=== PATIENT | male | born 1945 ===

== ENCOUNTER 2017-02-14 06:31 | Day surgery (SDC) | payer MEDICARE ==
[2017-02-14 07:08] VITALS: BMI 24.8
[2017-02-14] MEDS ORDERED: Lactated Ringer's 1,000 ML IV ONE (08:25)
[2017-02-14] MEDS ORDERED: Midazolam 2 MG/2 ML VIAL ONE (08:27)
[2017-02-14] MEDS ORDERED: Propofol 10 mg/ml Inj (20 ML) ONE (08:28)
--- NOTE | 2017-02-14 08:38 | CP.SDSHP ---
Same Day Surgery H & P - History Proposed Procedure: Personal history of colon cancer Pre-Op Diagnosis: History of colon cancer - Previous Medical/Surgical History Cardiac: Hypertension Pulmonary: Asthma Previous Surgical History: Left colon resection; hernia repair - Allergies Allergies: Allergies No Known Allergies Allergy (Verified 02/14/17 07:07) - Current Medications Current Medications: See reconciliation sheet - Physical Exam General Appearance: WD WN male in NAD Vital Signs: Vital Signs 02/14/17 07:37 Temperature 97 F L Pulse Rate 53 L Respiratory 19 Rate Blood Pressure 132/71 O2 Sat by Pulse 99 Oximetry Mental Status: Alert & Oriented x3 Neuro: WNL Heart: WNL Lungs: WNL GI: WNL - {Optional Preform as Required} Abdomen: WNL - Impression Impression: Personal history of colon cancer Pt. Evaluated Today:Candidate for Anesthesia & Procedure: Yes - Date & Time Date: 02/14/17 Time: 08:38 Short Stay Discharge - Short Stay Discharge Admitting Diagnosis/Reason for Visit: PERSONAL HISTORY OF COLON POLYPS Disposition: HOME/ ROUTINE
[2017-02-14 09:14] VITALS: TEMP 96.8; O2SAT 100
[2017-02-14 09:56] VITALS: RESP 12
[2017-02-14 10:48] VITALS: BP 131/81; PULSE 58
== END 2017-02-14 10:20 | disposition home or self-care (01) ==
LOC: C.ENDO 06:31
PROVIDERS: ATTEND Internal Medicine Gastroenterology
DX: Z08 Encounter for follow-up examination after completed treatment for malignant neoplasm (principal); Z85.038 Personal history of other malignant neoplasm of large intestine; Z90.49 Acquired absence of other specified parts of digestive tract; K57.30 Diverticulosis of large intestine without perforation or abscess without bleeding; D12.3 Benign neoplasm of transverse colon
CPT/HCPCS: 45385; 88305; J2250; J2704; J7120

== ENCOUNTER 2018-06-07 11:12 | Inpatient (IN) | payer MEDICARE ==
[2018-06-07 11:14] VITALS: BMI 24.8
[2018-06-07 12:12] LABS: BASO # 0.1 K/uL (0.0-0.2); BASO % 0.6 % (0.0-2.0); EOS # 0.1 K/uL (0.0-0.7); EOS % 0.5 % (0.0-4.0); HEMOGLOBIN 10.7 g/dL (12.0-18.0); LYMPH # 4.1 K/uL (1.0-4.3); LYMPH % 30.1 % (20.0-40.0); MEAN CELL VOLUME 83.5 fL (80.0-94.0); MEAN CORPUSCULAR HEMOGLOBIN 27.3 pg (27.0-31.0); MEAN CORPUSCULAR HGB CONC 32.6 g/dL (33.0-37.0); MEAN PLATELET VOLUME 8.5 fL (7.2-11.7); MONO # 1.2 K/uL (0.0-0.8); MONO % 8.6 % (0.0-10.0); NEUT # 8.2 K/uL (1.8-7.0); NEUT % 60.2 % (50.0-75.0); NRBC % 0.1 % (0.0-2.0); RBC 3.94 Mil/uL (4.40-5.90); WHITE BLOOD COUNT 13.6 K/uL (4.8-10.8)
--- NOTE | 2018-06-07 12:27 | C.PDOC ---
History Of Present Illness 73-year-old male, whose past medical history includes Leukemia and is s/p chemotherapy ten years ago, presents to the ED for evaluation of edema and redness to his bilateral lower extremities which began around two weeks ago. Patient reports pain to his bilateral legs, secondary to the edema. Patient also reports dry skin to the area, which he states has been chronic for many years and attributed to his history of cancer. Patient denies fever, chills, chest pain and shortness of breath at this time. PMD: Gerard Stewart Time Seen by Provider: 06/07/18 11:28 Chief Complaint (Nursing): Lower Extremity Problem/Injury History Per: Patient History/Exam Limitations: no limitations Onset/Duration Of Symptoms: Other (two weeks ) Current Symptoms Are (Timing): Still Present Additional History Per: Patient - Knee Description Of Injury: denies: Fell, Struck With Object, Struck Against Object Past Medical History Reviewed: Historical Data, Nursing Documentation, Vital Signs Vital Signs: Last Vital Signs Temp 97.3 F L 06/07/18 11:19 Pulse 76 06/07/18 11:19 Resp 18 06/07/18 11:19 BP 128/64 06/07/18 11:19 Pulse Ox 98 06/07/18 11:19 - Medical History PMH: Colonic Polyps (LARGE POLYPS WITH SURGEY TO REMOVE), HTN, Hypercholesterolemia Denies: Fractures, TIA Surgical History: Endoscopy Family History: States: Unknown Family Hx - Social History Hx Alcohol Use: No Hx Substance Use: No - Immunization History Hx Tetanus Toxoid Vaccination: Yes Hx Influenza Vaccination: Yes Hx Pneumococcal Vaccination: Yes Review Of Systems Constitutional: Negative for: Fever, Chills Cardiovascular: Negative for: Chest Pain Respiratory: Negative for: Shortness of Breath Musculoskeletal: Positive for: Leg Pain (bilateral lower extremities, secondary to edema) Skin: Positive for: Other (dryness and redness to skin ) Physical Exam - Physical Exam Additional Physical Exam Comments: Constitutional: No acute distress. Head: Normocephalic. Atraumatic. Eyes: PERRL. ENT: Moist mucous membranes. Neck: Supple. Cardiovascular: Regular rate. Normal DP pulse. Chest: No tenderness. Respiratory: Clear to auscultation bilaterally. GI: Soft. Nontender. Nondistended. Back: No CVA tenderness. Musculoskeletal: Pitting edema to bilateral lower extremities. normal ROM. Capillary refill is less than two seconds. Skin: erythematous and dry, cracked skin to lower extremities Neurologic: Alert, no focal deficit ED Course And Treatment - Laboratory Results Result Diagrams: 06/07/18 12:08 06/07/18 12:08 O2 Sat by Pulse Oximetry: 98 Medical Decision Making Medical Decision Making: Impression: 73 year old male with pitting edema and pain to bilateral lower extremities Plan: * bloodwork * venous duplex scan of bilateral lower extremities * reassess and disposition Progress: Bloodwork and venous duplex scan ordered and reviewed. Duplex negative for DVT bilaterally. Dr. Post recommends admission to hospitalist service. Recommends oncology consultation. Dr. Marvin accepts patient to hospitalist service. Disposition - Disposition Disposition: HOSPITALIZED Disposition Time: 14:14 Condition: GUARDED Forms: [facility] (Yakut) - Clinical Impression Clinical Impression: Cellulitis - Scribe Statement The provider has reviewed the documentation as recorded by the Scribe (Ladi Llanes) Provider Attestation: All medical record entries made by the Scribe were at my direction and personally dictated by me. I have reviewed the chart and agree that the record accurately reflects my personal performance of the history, physical exam, medical decision making, and the department course for this patient. I have also personally directed, reviewed, and agree with the discharge instructions and disposition.
[2018-06-07 12:46] LABS: ALBUMIN 3.3 g/dL (3.5-5.0); ALT/SGPT 18 U/L (21-72); AST/SGOT 34 U/L (17-59); BLOOD UREA NITROGEN 18 mg/dL (9-20); CALCIUM 9.1 mg/dl (8.6-10.4); GFR NON-AFRICAN AMERICAN > 60
[2018-06-07] MEDS ORDERED: Vancomycin 1 gm/NS 200 ml 1 GM/200 ML BAG IVPB STA (14:23)
--- NOTE | 2018-06-07 15:00 | CP.PCM.HP ---
<Kevin Guadalupe - Last Filed: 06/07/18 15:58> History of Present Illness - History of Present Illness History of Present Illness: PGY-1 Medicine H&P for Dr. Marvin's service CC: leg swelling and pain HPI: Patient is a 76 yo male w/ PMH of HTN and leukemia who presents to emergency department for evaluation of bilateral leg swelling and pain. Patient states the leg swelling and pain has been ongoing for two weeks, crampy in nature, non-radiating, 6-7/10 on pain scale. Patient states that he went to see his primary medical doctor for this situation and he was prescribed gabapentin and prednisone. However, the pain persisted and leg swelling was still present which prompted patient to come to hospital. Patient has had a similar episode in the past about 4 months ago for which he received antibiotics and the problem was resolved. Patient states he gets short of breath with minimal exertion. Patient states it is painful when he ambulates. Patient had an appointment with his oncologist about 2 months prior but was not able to make the appointment and his oncologist is traveling for holiday vacation. Patient denies fevers, chills, chest pain, sob, n/v, constipation or diarrhea, and dysuria. Patient admits to leg swelling, dry skin, itchiness at times, and pain but not currently, WEBB. PMH- HTN, Leukemia (Prolymphocytic Leukemia) Meds- Gabapentin 300mg bid, prednisone 20mg po daily, Triameterene-HCTZ (37.5- 25), levocetirizine 5mg, MV once daily, Benadryl 50mg q6 prn PSH- 2 colon surgeries FH-Denies Allergies-NKDA Social- Denies alcohol, tobacco, and drug use PMD- Dr. Post Code- Full code Present on Admission - Present on Admission Any Indicators Present on Admission: No Review of Systems - Review of Systems Review of Systems: 12 point ROS obtained and noted in HPI Past Patient History - Past Medical History & Family History Past Medical History?: Yes - Past Social History Smoking Status: Never Smoked - CARDIAC Hx Hypercholesterolemia: Yes Hx Hypertension: Yes - NEUROLOGICAL Hx Transient Ischemic Attacks (TIA): No - HEMATOLOGICAL/ONCOLOGICAL Hx Blood Disorders: Yes Hx Leukemia: Yes (IN REMISSION) - INTEGUMENTARY Hx Dermatological Problems: Yes Hx Eczema: Yes (ALL OVER BODY) - MUSCULOSKELETAL/RHEUMATOLOGICAL Hx Fractures: No - GASTROINTESTINAL Hx Gastrointestinal Disorders: Yes Hx Bowel Surgery: Yes (2X RESECTION OF 2 LARGE, BENIGN POLYPS) - PSYCHIATRIC Hx Substance Use: No - SURGICAL HISTORY Hx Surgeries: Yes Hx Herniorrhaphy: Yes (RIGHT GROIN) - ANESTHESIA Hx Anesthesia: Yes Hx Anesthesia Reactions: No Hx Malignant Hyperthermia: No Meds Allergies/Adverse Reactions: Allergies Allergy/AdvReac Type Severity Reaction Status Date / Time No Known Allergies Allergy Verified 02/14/17 07:07 Physical Exam - Constitutional Appears: Non-toxic, No Acute Distress - Head Exam Head Exam: NORMAL INSPECTION, NORMOCEPHALIC - Eye Exam Eye Exam: EOMI, Normal appearance. absent: Nystagmus, Scleral icterus - ENT Exam ENT Exam: Mucous Membranes Dry - Respiratory Exam Respiratory Exam: Clear to Auscultation Bilateral, NORMAL BREATHING PATTERN. absent: Rales, Rhonchi, Wheezes - Cardiovascular Exam Cardiovascular Exam: REGULAR RHYTHM, +S1, +S2. absent: Tachycardia - GI/Abdominal Exam GI & Abdominal Exam: Normal Bowel Sounds, Soft. absent: Distended, Firm, Guarding, Hernia, Tenderness Additional comments: well healed incision midline in lower abdomen - Extremities Exam Extremities exam: Positive for: normal inspection, pedal edema, pedal pulses present. Negative for: calf tenderness, tenderness - Back Exam Back exam: NORMAL INSPECTION. absent: CVA tenderness (L), CVA tenderness (R) - Neurological Exam Neurological exam: Alert, Oriented x3 - Psychiatric Exam Psychiatric exam: Normal Affect, Normal Mood - Skin Skin Exam: Dry Additional comments: cracked dry skin all over body multiple blisters with visible blood below mouth and bilateral feet Results - Vital Signs Recent Vital Signs: Last Vital Signs Temp 97.3 F L 06/07/18 11:19 Pulse 76 06/07/18 11:19 Resp 18 06/07/18 11:19 BP 128/64 06/07/18 11:19 Pulse Ox 98 06/07/18 14:30 - Labs Result Diagrams: 06/07/18 12:08 06/07/18 12:08 Labs: Laboratory Results - last 24 hr 06/07/18 06/07/18 12:08 12:08 WBC 13.6 H RBC 3.94 L Hgb 10.7 L Hct 32.9 L MCV 83.5 MCH 27.3 MCHC 32.6 L RDW 15.0 H Plt Count 317 MPV 8.5 Neut % (Auto) 60.2 Lymph % (Auto) 30.1 [place] % (Auto) 8.6 Eos % (Auto) 0.5 Baso % (Auto) 0.6 Neut # (Auto) 8.2 H Lymph # (Auto) 4.1 [place] # (Auto) 1.2 H Eos # (Auto) 0.1 Baso # (Auto) 0.1 Sodium 135 Potassium 3.8 Chloride 97 L Carbon Dioxide 30 Anion Gap 12 BUN 18 Creatinine 0.8 Est GFR ( Amer) > 60 Est GFR (Non-Af Amer) > 60 Random Glucose 120 H Calcium 9.1 Total Bilirubin 0.5 AST 34 ALT 18 L Alkaline Phosphatase 68 Total Protein 6.6 Albumin 3.3 L Globulin 3.3 Albumin/Globulin Ratio 1.0 Assessment & Plan - Assessment and Plan (Free Text) Assessment: Patient is a 73 yo male with pmh of prolymphocytic leukemia and HTN admitted for bilateral lower leg edema and pain on ambulation. Plan: Bilateral Lower Leg Edema cellulitis vs CHF Heme Onc consulted: Dr. Hodge- recommendations appreciated Lower extremity U/S negative Xray of bilateral feet pending BNP pending Chest Xray pending Echo pending Vanc/Zosyn; elevated WBC; afebrile BCx pending Gabapentin 300mg po bid nilesh HTN Lasix 20mg IVP bid nilesh HZTZ/Triameterene 1 cap po daily Dry skin with itchign Benadryl 50mg po q6 prn Loratidine 10mg po daily Vaseline 5gm top q6 PPX DVT Heparin 5000 units sc q8h GI Protonix 40mg po hs PT eval pending <Marvin,Peter H - Last Filed: 06/07/18 17:43> Results - Vital Signs Recent Vital Signs: Last Vital Signs Temp 97.3 F L 06/07/18 11:19 Pulse 77 06/07/18 15:15 Resp 18 06/07/18 15:15 BP 115/79 06/07/18 15:15 Pulse Ox 98 06/07/18 15:15 - Labs Result Diagrams: 06/07/18 12:08 06/07/18 12:08 Labs: Laboratory Results - last 24 hr 12/12/18 12/12/18 12/12/18 12:08 12:08 12:08 WBC 13.6 H RBC 3.94 L Hgb 10.7 L Hct 32.9 L MCV 83.5 MCH 27.3 MCHC 32.6 L RDW 15.0 H Plt Count 317 MPV 8.5 Neut % (Auto) 60.2 Lymph % (Auto) 30.1 [place] % (Auto) 8.6 Eos % (Auto) 0.5 Baso % (Auto) 0.6 Neut # (Auto) 8.2 H Lymph # (Auto) 4.1 [place] # (Auto) 1.2 H Eos # (Auto) 0.1 Baso # (Auto) 0.1 Sodium 135 Potassium 3.8 Chloride 97 L Carbon Dioxide 30 Anion Gap 12 BUN 18 Creatinine 0.8 Est GFR ( Amer) > 60 Est GFR (Non-Af Amer) > 60 Random Glucose 120 H Calcium 9.1 Total Bilirubin 0.5 AST 34 ALT 18 L Alkaline Phosphatase 68 NT-Pro-B Natriuret Pep 538 Total Protein 6.6 Albumin 3.3 L Globulin 3.3 Albumin/Globulin Ratio 1.0 Attending/Attestation - Attestation I have personally seen and examined this patient.: Yes I have fully participated in the care of the patient.: Yes I have reviewed all pertinent clinical information: Yes Notes (Text): 06/07/18 17:39 Medical attending: Patient was seen and examined by me. Agree with the above note by the resident The patient was not in any acute distress when I came and saw the patient. Patient was sent to the Er by his PMD because of the lower extremity edema bilaterally. The patient reports it is painful to walk. Denied fevers. ER has ordered dopplers and it is negative for DVT. There is concern for cellultis so abx IV have been ordered. Also we need imaging of bilateral feet The patient should have a CXRAY and Echo to assess for potential CHF Also will give lasix as well however not large dose since he does look dry in the face and mouth Per the family they had to have the patient move into their own house since he was not eating and could not take care of himself. It is possible the swelling is due to low protein from malnutrition and low albumin. We may give him IV albumin to see if this helps with the lasix for diureses. If patient does not repsond well to the lasix then will consider CT of the abdomen and pelvis in case there is some tumor or mass in abdomen causing lymphatic contriction (he has history of leukemia they say 10 years ago) Cortez Marvin
[2018-06-07] MEDS ORDERED: Vancomycin 1 gm/NS 200 ml 1 GM/200 ML BAG IVPB ONE (15:15)
--- NOTE | 2018-06-07 16:56 | RAD ---
HISTORY: chf COMPARISON: None available. TECHNIQUE: Chest, one view. FINDINGS: LUNGS: Mild biapical pleural thickening. Linear atelectasis, left lung base. Mild pulmonary venous congestion. Please note that chest x-ray has limited sensitivity for the detection of pulmonary masses. PLEURA: No significant pleural effusion identified. No definite pneumothorax . CARDIOVASCULAR: Heart size appears within normal limits. Ectatic aorta. Atherosclerotic calcifications. OSSEOUS STRUCTURES: Degenerative changes of the spine and shoulders. VISUALIZED UPPER ABDOMEN: Unremarkable. OTHER FINDINGS: None. IMPRESSION: Mild biapical pleural thickening. Linear atelectasis, left lung base. Mild pulmonary venous congestion.
[2018-06-07] MEDS: Piperacill/Tazo 3.375gm in Dex 3.375 GM/50 ML BAG IVPB SCH ×2 (18:08→23:02)
[2018-06-07] MEDS: Pantoprazole 40 mg EC Tab PO SCH (18:08)
[2018-06-07] MEDS: Petrolatum Oint Foilpak (5 gm) TOP SCH (18:09)
[2018-06-07 21:36] VITALS: RESP 20
[2018-06-08] MEDS: Piperacill/Tazo 3.375gm in Dex 3.375 GM/50 ML BAG IVPB SCH ×4 (04:00→21:19)
[2018-06-08] MEDS: Petrolatum Oint Foilpak (5 gm) TOP SCH ×4 (05:15→17:30)
[2018-06-08 07:48] LABS: BASO # 0.1 K/uL (0.0-0.2); EOS # 0.3 K/uL (0.0-0.7); HEMOGLOBIN 9.9 g/dL (12.0-18.0); LYMPH # 8.9 K/uL (1.0-4.3); LYMPH % 63.6 % (20.0-40.0); MEAN CELL VOLUME 83.5 fL (80.0-94.0); MEAN CORPUSCULAR HEMOGLOBIN 27.2 pg (27.0-31.0); MEAN CORPUSCULAR HGB CONC 32.5 g/dL (33.0-37.0); MEAN PLATELET VOLUME 9.1 fL (7.2-11.7); MONO # 0.2 K/uL (0.0-0.8); MONO % 1.3 % (0.0-10.0); NEUT # 4.5 K/uL (1.8-7.0); NEUT % 32.1 % (50.0-75.0); RBC 3.64 Mil/uL (4.40-5.90)
[2018-06-08 07:58] LABS: ALB/GLOB RATIO 0.9 (1.0-2.1); ALBUMIN 2.9 g/dL (3.5-5.0); ALT/SGPT 21 U/L (21-72); AST/SGOT 20 U/L (17-59); BLOOD UREA NITROGEN 18 mg/dL (9-20); CALCIUM 8.7 mg/dl (8.6-10.4); GFR NON-AFRICAN AMERICAN > 60
[2018-06-08] MEDS: hydroCHLOROthiazide-Triamterene 25 mg-37.5 mg Cap UD PO SCH ×2 (08:00→11:00)
--- NOTE | 2018-06-08 09:22 | CP.PCM.PN ---
<Sari Lee - Last Filed: 06/08/18 17:20> Subjective - Date & Time of Evaluation Date of Evaluation: 06/08/18 Time of Evaluation: 09:21 - Subjective Subjective: PGY-1 Sari Lee D.O. Medicine progress note for Dr. Marvin's service: Patient was seen and examined this morning. He states that he continues to have pain on the soles of his feet, but the rest of his legs are feeling better and he feels the swelling has decreased. He states he has not yet walked around since being in the hospital. he still has diffuse dry skin, which he says is chronic but worsening, especially on his feet and legs. Daughter was at bedside. Objective - Vital Signs/Intake and Output Vital Signs (last 24 hours): Temp Pulse Resp BP Pulse Ox 97.5 F L 74 20 146/70 96 06/08/18 07:39 06/08/18 07:39 06/08/18 07:39 06/08/18 07:39 06/08/18 07:39 Intake and Output: 06/08/18 06/08/18 06:59 18:59 Intake Total 1400 Output Total 2600 Balance -1200 - Medications Medications: Current Medications Diphenhydramine HCl (Benadryl) 50 mg PO Q6 PRN PRN Reason: Itching / Pruritus Emollient Ointment (Vaseline Oint) 5 gm TOP Q6 [facility] Last Admin: 06/08/18 05:15 Dose: 5 gm Furosemide (Lasix) 20 mg IVP BID [facility] Last Admin: 06/07/18 18:07 Dose: 20 mg Gabapentin (Neurontin) 300 mg PO BID [facility] Last Admin: 06/07/18 18:07 Dose: 300 mg Heparin Sodium (Porcine) (Heparin) 5,000 units SC Q8 [facility] Last Admin: 06/08/18 05:25 Dose: 5,000 units Piperacillin Sod/Tazobactam Sod (Zosyn 3.375 Gm Iv Premix) 3.375 gm in 50 mls @ 100 mls/hr IVPB Q6H [facility]; Protocol Last Admin: 06/08/18 04:00 Dose: 100 mls/hr Vancomycin HCl 1,000 mg/ (Sodium Chloride) 250 mls @ 166.6 mls/hr IVPB Q12H [facility]; Protocol Last Admin: 06/08/18 05:00 Dose: 166.6 mls/hr Loratadine (Claritin) 10 mg PO DAILY [facility] Last Admin: 06/07/18 18:07 Dose: 10 mg Pantoprazole Sodium (Protonix Ec Tab) 40 mg PO DAILY [facility] Last Admin: 06/07/18 18:08 Dose: 40 mg Triamterene/HCTZ (Dyazide 25 Mg-37.5 Mg) 1 cap PO DAILY [facility] - Labs Labs: 06/08/18 07:34 06/08/18 07:34 - Constitutional Appears: No Acute Distress - Head Exam Head Exam: ATRAUMATIC, NORMAL INSPECTION - Eye Exam Eye Exam: EOMI, Normal appearance, PERRL - ENT Exam ENT Exam: Mucous Membranes Moist - Neck Exam Neck Exam: Normal Inspection - Respiratory Exam Respiratory Exam: Clear to Ausculation Bilateral, NORMAL BREATHING PATTERN - Cardiovascular Exam Cardiovascular Exam: REGULAR RHYTHM, +S1, +S2 - GI/Abdominal Exam GI & Abdominal Exam: Soft. absent: Tenderness - Rectal Exam Rectal Exam: Deferred - Extremities Exam Extremities Exam: Normal Inspection (diffuse dry, peeling, cracked skin), Pedal Edema (2+ pitting edema up to ankles b/l), Tenderness (plantar surfaces of feet b/l). absent: Calf Tenderness, Normal Capillary Refill - Neurological Exam Neurological Exam: Alert, Awake, CN II-XII Intact, Oriented x3 - Psychiatric Exam Psychiatric exam: Normal Affect, Normal Mood - Skin Skin Exam: Dry, Warm Additional comments: diffuse dry, flaky skin over entire body, worse on feet with cracking of plantar surfaces Assessment and Plan - Assessment and Plan (Free Text) Assessment: Patient is a 73 yo male with a history of leukemia (in remission) who presented with increased swelling and pain of his legs. Patient was living by himself and only eating one meal a day. His family recently had him move in with them. Patient has diffuse dry, flaking, cracking skin and swelling of his lower extremities. Treating patient empirically for cellulitis. Also assessing for HF, but patient has no history. Plan: Bilateral lower extremity edema and pain, acute- r/o CHF, cellulitis. hypoalbuminemia - BNP 538 - Leukocytosis (14)- stable - Afebrile - Echo pending - B/l LE Doppler: no DVT - B/l foot XR: No fracture or lytic lesion. Multifocal arthrosis dorsal midfoot, minimal each 1st metatarsal-phalangeal joint and primarily right great toe interphalangeal joint. Atherosclerotic vascular calcifications present. - Blood Cx no growth >24 hrs - Gabapentin 300 mg PO BID - Lasix 40 mg IV BID - Zosyn 3.375 g IV Q6H- started 06/07 - Vancomycin 1 g IV Q12H- started 06/07 Dry skin, worsening- diffuse, most prominent on feet - Petroleum Q6H - Ammonium lactate - Clotrimazole 1% BID - Lac-Hydrin 12% BID - Benadryl 50 mg PO Q6H PRN - Podiatry consulted (Steph) Hypoalbuminemia, worsening - Alb 3.3->2.9 - Total prot 6.6->5.9 - Await echo results before giving albumin - Ensure supplements BID Hypertension - Monitor vitals Q4H - Triamterene/HCTZ 25-37.5 mg PO daily H/o prolymphocytic leukemia - Hem/onc consulted (Naveen) Allergic rhinitis - Claritin 10 mg PO daily Ppx: VTE: heparin 5000 units SC Q8H GI: PTX 40 mg PO daily Code status: full code Case was discussed with attending, Dr. Marvin. <Cortez Marvin - Last Filed: 06/08/18 17:59> Objective - Vital Signs/Intake and Output Vital Signs (last 24 hours): Temp Pulse Resp BP Pulse Ox 97.8 F 88 20 132/64 96 06/08/18 15:30 06/08/18 15:30 06/08/18 15:30 06/08/18 17:28 06/08/18 15:30 Intake and Output: 06/08/18 06/08/18 06:59 18:59 Intake Total 1400 390 Output Total 2600 900 Balance -1200 -510 - Medications Medications: Current Medications Clotrimazole (Lotrimin 1%) 0 gm TOP BID [facility] Diphenhydramine HCl (Benadryl) 50 mg PO Q6 PRN PRN Reason: Itching / Pruritus Emollient Ointment (Vaseline Oint) 5 gm TOP Q6 [facility] Last Admin: 06/08/18 17:30 Dose: 5 gm Furosemide (Lasix) 40 mg IVP BID [facility] Last Admin: 06/08/18 17:28 Dose: 40 mg Gabapentin (Neurontin) 300 mg PO BID [facility] Last Admin: 06/08/18 17:29 Dose: 300 mg Heparin Sodium (Porcine) (Heparin) 5,000 units SC Q8 [facility] Last Admin: 06/08/18 14:01 Dose: 5,000 units Piperacillin Sod/Tazobactam Sod (Zosyn 3.375 Gm Iv Premix) 3.375 gm in 50 mls @ 100 mls/hr IVPB Q6H [facility]; Protocol Last Admin: 06/08/18 16:56 Dose: 100 mls/hr Vancomycin HCl 1,000 mg/ (Sodium Chloride) 250 mls @ 166.6 mls/hr IVPB Q12H [facility]; Protocol Last Admin: 06/08/18 17:29 Dose: 166.6 mls/hr Lactic Acid (Lac-Hydrin 12% Lotion (225 G)) 0 gm EXT BID [facility] Loratadine (Claritin) 10 mg PO DAILY [facility] Last Admin: 06/08/18 11:07 Dose: 10 mg Pantoprazole Sodium (Protonix Ec Tab) 40 mg PO DAILY [facility] Last Admin: 06/08/18 11:00 Dose: 40 mg Triamterene/HCTZ (Dyazide 25 Mg-37.5 Mg) 1 cap PO DAILY [facility] Last Admin: 06/08/18 11:00 Dose: 1 cap - Labs Labs: 06/08/18 07:34 06/08/18 07:34 Attending/Attestation - Attestation I have personally seen and examined this patient.: Yes I have fully participated in the care of the patient.: Yes I have reviewed all pertinent clinical information, including history, physical exam and plan: Yes Notes (Text): 06/08/18 17:57 Medical attending: Patient was seen and examined by me as well. Agree with the above note by the resident. The patient reported that he thought he felt better with less edema in the legs. We did not give a large amount of lasix. The skin is less tender now he says In the mean time we are continuing with the IV abx Also he underwent echo as well - and pending results. We will consider giving albumin to help with oncotic pressure as we are diureesing the patient. Cortez Marvin
[2018-06-08] MEDS: Pantoprazole 40 mg EC Tab PO SCH (11:00)
--- NOTE | 2018-06-08 11:24 | RAD ---
Date of service: 06/07/2018 PROCEDURE: Bilateral Feet Radiographs. HISTORY: bilateral lower extremity edema COMPARISON: None. FINDINGS: BONES: Right Foot: No fracture appreciated Dorsal midfoot cortical hyperostoses inferior and posterior calcaneal spurring Left Foot: No fracture. Dorsal midfoot cortical hyperostoses inferior and posterior calcaneal spurring JOINTS: Right Foot: Arthrosis Left Foot: Arthrosis left hammertoe like orientations. SOFT TISSUES: Right Foot: Atherosclerotic vascular calcifications present. Left Foot: Atherosclerotic vascular calcifications present. OTHER FINDINGS: Each navicular bone appears developmental variant type cornuate shaped IMPRESSION: No fracture or lytic lesion. Multifocal arthrosis dorsal midfoot, minimal each 1st metatarsal-phalangeal joint and primarily right great toe interphalangeal joint. Atherosclerotic vascular calcifications present.
--- NOTE | 2018-06-08 11:32 | CP.PCM.CON ---
History of Present Illness - History of Present Illness History of Present Illness: Podiatry - Dr. Choi 73 year old male patient PMHx HTN, leukemia, eczema seen and evaluated at bedside for bilateral foot pain. Patient admitted for bilateral lower extremity edema + pain with ambulation. Patient states he has had severe scaling on his feet for a few weeks now and as a result has developed painful fissures in between his feet. Patient reports itching along with burning/stinging pain with ambulation; denies seeing any bleeding or drainage from wounds. Admits to using OTC lotion which provides no relief. Denies n/v/d, no f/c, no sob. PMH: HTN, leukemia, eczema PSH: colon resection, hernia repair FH: denies SH: denies ETOH/tobacco/illicit drug use All: NKDA Review of Systems - Review of Systems All systems: reviewed and no additional remarkable complaints except (as per HPI) Past Patient History - Past Medical History & Family History Past Medical History?: Yes - Past Social History Smoking Status: Never Smoked - CARDIAC Hx Hypercholesterolemia: Yes Hx Hypertension: Yes - NEUROLOGICAL Hx Transient Ischemic Attacks (TIA): No - HEENT Hx Cataracts: Yes (rehan) - HEMATOLOGICAL/ONCOLOGICAL Hx Blood Disorders: Yes Hx Leukemia: Yes (IN REMISSION) - INTEGUMENTARY Hx Dermatological Problems: Yes Hx Eczema: Yes (ALL OVER BODY) - MUSCULOSKELETAL/RHEUMATOLOGICAL Hx Falls: No Hx Fractures: No - GASTROINTESTINAL Hx Gastrointestinal Disorders: Yes Hx Bowel Surgery: Yes (2X RESECTION OF 2 LARGE, BENIGN POLYPS) - PSYCHIATRIC Hx Substance Use: No - SURGICAL HISTORY Hx Surgeries: Yes Hx Herniorrhaphy: Yes (RIGHT GROIN) - ANESTHESIA Hx Anesthesia: Yes Hx Anesthesia Reactions: No Hx Malignant Hyperthermia: No Meds Allergies/Adverse Reactions: Allergies Allergy/AdvReac Type Severity Reaction Status Date / Time No Known Allergies Allergy Verified 02/14/17 07:07 - Medications Medications: Current Medications Diphenhydramine HCl (Benadryl) 50 mg PO Q6 PRN PRN Reason: Itching / Pruritus Emollient Ointment (Vaseline Oint) 5 gm TOP Q6 [facility] Last Admin: 06/08/18 05:15 Dose: 5 gm Furosemide (Lasix) 40 mg IVP BID [facility] Gabapentin (Neurontin) 300 mg PO BID [facility] Last Admin: 06/08/18 11:00 Dose: 300 mg Heparin Sodium (Porcine) (Heparin) 5,000 units SC Q8 [facility] Last Admin: 06/08/18 05:25 Dose: 5,000 units Piperacillin Sod/Tazobactam Sod (Zosyn 3.375 Gm Iv Premix) 3.375 gm in 50 mls @ 100 mls/hr IVPB Q6H [facility]; Protocol Last Admin: 06/08/18 11:00 Dose: 100 mls/hr Vancomycin HCl 1,000 mg/ (Sodium Chloride) 250 mls @ 166.6 mls/hr IVPB Q12H [facility]; Protocol Last Admin: 06/08/18 05:00 Dose: 166.6 mls/hr Loratadine (Claritin) 10 mg PO DAILY [facility] Last Admin: 06/08/18 11:07 Dose: 10 mg Pantoprazole Sodium (Protonix Ec Tab) 40 mg PO DAILY [facility] Last Admin: 06/08/18 11:00 Dose: 40 mg Triamterene/HCTZ (Dyazide 25 Mg-37.5 Mg) 1 cap PO DAILY [facility] Last Admin: 06/08/18 11:00 Dose: 1 cap Physical Exam - Constitutional Appears: Well, Non-toxic, No Acute Distress - Extremities Exam Additional comments: VASC: DP/PT pulses palpable 2/4 b/l. CFT <3 seconds. TG warm to warm. Nonpitting edema b/l. NEURO: Gross sensation intact b/l. DERM: Severe xerosis + scaling present with fissuring throughout plantar aspect of foot b/l - no drainage, purulence. Erythema noted to bilateral LE. ORTHO: Pain on palpation to fissures. ROM limited 2/2 edema. - Neurological Exam Neurological exam: Alert, Oriented x3 - Psychiatric Exam Psychiatric exam: Normal Affect, Normal Mood Results - Vital Signs Recent Vital Signs: Last Vital Signs Temp 97.5 F L 06/08/18 07:39 Pulse 74 06/08/18 07:39 Resp 20 06/08/18 07:39 BP 146/70 06/08/18 11:00 Pulse Ox 96 06/08/18 07:39 - Labs Result Diagrams: 06/08/18 07:34 06/08/18 07:34 Labs: Laboratory Results - last 24 hr 06/07/18 06/07/18 06/07/18 12:08 12:08 12:08 WBC 13.6 H RBC 3.94 L Hgb 10.7 L Hct 32.9 L MCV 83.5 MCH 27.3 MCHC 32.6 L RDW 15.0 H Plt Count 317 MPV 8.5 Neut % (Auto) 60.2 Lymph % (Auto) 30.1 Hudspeth % (Auto) 8.6 Eos % (Auto) 0.5 Baso % (Auto) 0.6 Neut # (Auto) 8.2 H Lymph # (Auto) 4.1 Hudspeth # (Auto) 1.2 H Eos # (Auto) 0.1 Baso # (Auto) 0.1 Sodium 135 Potassium 3.8 Chloride 97 L Carbon Dioxide 30 Anion Gap 12 BUN 18 Creatinine 0.8 Est GFR ( Amer) > 60 Est GFR (Non-Af Amer) > 60 Random Glucose 120 H Calcium 9.1 Phosphorus Magnesium Total Bilirubin 0.5 AST 34 ALT 18 L Alkaline Phosphatase 68 NT-Pro-B Natriuret Pep 538 Total Protein 6.6 Albumin 3.3 L Globulin 3.3 Albumin/Globulin Ratio 1.0 06/08/18 06/08/18 07:34 07:34 WBC 14.0 H RBC 3.64 L Hgb 9.9 L Hct 30.4 L MCV 83.5 MCH 27.2 MCHC 32.5 L RDW 15.0 H Plt Count 332 MPV 9.1 Neut % (Auto) 32.1 L Lymph % (Auto) 63.6 H Hudspeth % (Auto) 1.3 Eos % (Auto) 2.0 Baso % (Auto) 1.0 Neut # (Auto) 4.5 Lymph # (Auto) 8.9 H Hudspeth # (Auto) 0.2 Eos # (Auto) 0.3 Baso # (Auto) 0.1 Sodium 139 Potassium 3.6 Chloride 101 Carbon Dioxide 31 H Anion Gap 11 BUN 18 Creatinine 0.8 Est GFR ( Amer) > 60 Est GFR (Non-Af Amer) > 60 Random Glucose 80 Calcium 8.7 Phosphorus 2.6 Magnesium 2.0 Total Bilirubin 0.6 AST 20 ALT 21 Alkaline Phosphatase 56 NT-Pro-B Natriuret Pep Total Protein 5.9 L Albumin 2.9 L Globulin 3.1 Albumin/Globulin Ratio 0.9 L Assessment & Plan - Assessment and Plan (Free Text) Assessment: 73M PMHx HTN, leukemia, eczema with painful fissures b/l feet Plan: Patient seen and evaluated Discussed with attending, Dr. Steph ALVAREZ, WBC 14.0 LE duplex pending, f/u Bilateral foot XR: (-)fracture, vascular calcifications Clotrimazole + Ammonium lactate TOP BID Podiatry will continue to follow
--- NOTE | 2018-06-08 12:55 | CP.PCM.CON ---
History of Present Illness - History of Present Illness History of Present Illness: 73 year old male with a history of HTN, APL s/p chemotherapy at [place] about 10 years ago, presenting with lower extremity pain and swelling. The patient notes to progressive fatigue and weightloss over the last month. He missed his appointment with his oncologist in March. He notes to blistering and skin peeling with increasing pain. He denies fevers and chills. Past medical history: HTN, APL Past surgical history: Colon surgery Family history: Denies hematologic and oncologic problems Social history: Denies tobacco, alcohol, and illicit drug use. Allergies: NKA Review of systems: All remaining review of systems including HEENT, cardiovascular, respiratory, gastrointestinal, genitourinary, musculoskeletal, dermatologic, neurologic, and psychiatric are negative unless mentioned in the HPI. Past Patient History - Past Medical History & Family History Past Medical History?: Yes - Past Social History Smoking Status: Never Smoked - CARDIAC Hx Hypercholesterolemia: Yes Hx Hypertension: Yes - NEUROLOGICAL Hx Transient Ischemic Attacks (TIA): No - HEENT Hx Cataracts: Yes (rehan) - HEMATOLOGICAL/ONCOLOGICAL Hx Blood Disorders: Yes Hx Leukemia: Yes (IN REMISSION) - INTEGUMENTARY Hx Dermatological Problems: Yes Hx Eczema: Yes (ALL OVER BODY) - MUSCULOSKELETAL/RHEUMATOLOGICAL Hx Falls: No Hx Fractures: No - GASTROINTESTINAL Hx Gastrointestinal Disorders: Yes Hx Bowel Surgery: Yes (2X RESECTION OF 2 LARGE, BENIGN POLYPS) - PSYCHIATRIC Hx Substance Use: No - SURGICAL HISTORY Hx Surgeries: Yes Hx Herniorrhaphy: Yes (RIGHT GROIN) - ANESTHESIA Hx Anesthesia: Yes Hx Anesthesia Reactions: No Hx Malignant Hyperthermia: No Meds Allergies/Adverse Reactions: Allergies Allergy/AdvReac Type Severity Reaction Status Date / Time No Known Allergies Allergy Verified 02/14/17 07:07 - Medications Medications: Current Medications Diphenhydramine HCl (Benadryl) 50 mg PO Q6 PRN PRN Reason: Itching / Pruritus Emollient Ointment (Vaseline Oint) 5 gm TOP Q6 [facility] Last Admin: 06/08/18 12:08 Dose: 5 gm Furosemide (Lasix) 40 mg IVP BID [facility] Last Admin: 06/08/18 12:09 Dose: 40 mg Gabapentin (Neurontin) 300 mg PO BID [facility] Last Admin: 06/08/18 11:00 Dose: 300 mg Heparin Sodium (Porcine) (Heparin) 5,000 units SC Q8 [facility] Last Admin: 06/08/18 05:25 Dose: 5,000 units Piperacillin Sod/Tazobactam Sod (Zosyn 3.375 Gm Iv Premix) 3.375 gm in 50 mls @ 100 mls/hr IVPB Q6H [facility]; Protocol Last Admin: 06/08/18 11:00 Dose: 100 mls/hr Vancomycin HCl 1,000 mg/ (Sodium Chloride) 250 mls @ 166.6 mls/hr IVPB Q12H [facility]; Protocol Last Admin: 06/08/18 05:00 Dose: 166.6 mls/hr Loratadine (Claritin) 10 mg PO DAILY [facility] Last Admin: 06/08/18 11:07 Dose: 10 mg Pantoprazole Sodium (Protonix Ec Tab) 40 mg PO DAILY [facility] Last Admin: 06/08/18 11:00 Dose: 40 mg Triamterene/HCTZ (Dyazide 25 Mg-37.5 Mg) 1 cap PO DAILY [facility] Last Admin: 06/08/18 11:00 Dose: 1 cap Physical Exam - Head Exam Head Exam: ATRAUMATIC - Eye Exam Eye Exam: Normal appearance - ENT Exam ENT Exam: Mucous Membranes Dry - Respiratory Exam Respiratory Exam: NORMAL BREATHING PATTERN - Cardiovascular Exam Cardiovascular Exam: +S1, +S2 - GI/Abdominal Exam GI & Abdominal Exam: Normal Bowel Sounds - Extremities Exam Extremities exam: Positive for: pedal edema - Neurological Exam Neurological exam: Oriented x3 - Psychiatric Exam Psychiatric exam: Normal Affect, Normal Mood - Skin Skin Exam: Warm Results - Vital Signs Recent Vital Signs: Last Vital Signs Temp 97.5 F L 06/08/18 07:39 Pulse 74 06/08/18 07:39 Resp 20 06/08/18 07:39 BP 132/84 06/08/18 12:09 Pulse Ox 96 06/08/18 07:39 - Labs Result Diagrams: 06/08/18 07:34 06/08/18 07:34 Labs: Laboratory Results - last 24 hr 06/07/18 06/08/18 06/08/18 12:08 07:34 07:34 WBC 14.0 H RBC 3.64 L Hgb 9.9 L Hct 30.4 L MCV 83.5 MCH 27.2 MCHC 32.5 L RDW 15.0 H Plt Count 332 MPV 9.1 Neut % (Auto) 32.1 L Lymph % (Auto) 63.6 H Jackson % (Auto) 1.3 Eos % (Auto) 2.0 Baso % (Auto) 1.0 Neut # (Auto) 4.5 Lymph # (Auto) 8.9 H Jackson # (Auto) 0.2 Eos # (Auto) 0.3 Baso # (Auto) 0.1 Sodium 139 Potassium 3.6 Chloride 101 Carbon Dioxide 31 H Anion Gap 11 BUN 18 Creatinine 0.8 Est GFR ( Amer) > 60 Est GFR (Non-Af Amer) > 60 Random Glucose 80 Calcium 8.7 Phosphorus 2.6 Magnesium 2.0 Total Bilirubin 0.6 AST 20 ALT 21 Alkaline Phosphatase 56 NT-Pro-B Natriuret Pep 538 Total Protein 5.9 L Albumin 2.9 L Globulin 3.1 Albumin/Globulin Ratio 0.9 L Assessment & Plan (1) Anemia Assessment and Plan: likely chronic disease retic count, b12, folate, ferritin Status: Acute (2) Leukocytosis Assessment and Plan: on antibiotics Status: Acute (3) APL (acute promyelocytic leukemia) Assessment and Plan: outpatient f/u with primary oncologist Thank you for this interesting consult. Status: Acute
--- NOTE | 2018-06-08 18:13 | CARD ---
APPROVED REPORT Date of service: 06/08/2018 EXAM: Two-dimensional and M-mode echocardiogram with Doppler and color Doppler. INDICATION Congestive Heart Failure 2D DIMENSIONS IVSd1.0 (0.7-1.1cm)LVDd5.5 (3.9-5.9cm) PWd1.1 (0.7-1.1cm)LA Upnbsh78 (18-58mL) LVDs3.2 (2.5-4.0cm)FS (%) 41.9 % LVEF (%)72.4 (>50%)LVEF (Rossi's)67.20 % M-Mode DIMENSIONS Left Atrium (MM)4.35 (2.5-4.0cm)IVSd0.95 (0.7-1.1cm) Aortic Root3.37 (2.2-3.7cm)LVDd6.01 (4.0-5.6cm) Aortic Cusp Exc.1.87 (1.5-2.0cm)PWd1.05 (0.7-1.1cm) FS (%) 48 %LVDs3.14 (2.0-3.8cm) LVEF (%)78 (>50%) Mitral Valve MV E Kgyyylqp71.9cm/sMV A Dqjeiiun001.1cm/sE/A ratio0.8 TDI Lateral E' Peak V10.35cm/sMedial E' Peak V6.61cm/sE/Lateral E'8.0 E/Medial E'12.5 Tricuspid Valve TR Peak Iklszxpu484ka/sTR Peak Gr.[id number] LEFT VENTRICLE The left ventricle is normal size. There is normal left ventricular wall thickness. The left ventricular function is normal. The left ventricular ejection fraction is within the normal range. There is normal LV segmental wall motion. Transmitral Doppler flow pattern is Grade I-abnormal relaxation pattern. RIGHT VENTRICLE The right ventricle is normal size. There is normal right ventricular wall thickness. The right ventricular systolic function is normal. ATRIA The left atrium is borderline dilated. The right atrium size is normal. AORTIC VALVE The aortic valve is mildly thickened. No aortic regurgitation is present. There is no aortic valvular stenosis. MITRAL VALVE The mitral valve is mildly thickened. There is no mitral valve stenosis. Mitral regurgitation is trace. TRICUSPID VALVE The tricuspid valve is normal in structure. There is trace to mild tricuspid regurgitation. PULMONIC VALVE There is mild pulmonic valvular regurgitation. GREAT VESSELS The aortic root is normal in size. PERICARDIAL EFFUSION There is no pericardial effusion. <Conclusion> There is normal left ventricular wall thickness. The left ventricular function is normal. The left ventricular ejection fraction is within the normal range. There is normal LV segmental wall motion. Transmitral Doppler flow pattern is Grade I-abnormal relaxation pattern.
[2018-06-08] MEDS: Ammonium Lactate 12% Lotion (225 g) EXT SCH (20:51)
[2018-06-08] MEDS: Clotrimazole 1% Cream(30 gm) TOP SCH (21:09)
[2018-06-09] MEDS: Petrolatum Oint Foilpak (5 gm) TOP SCH ×4 (00:30→17:49)
[2018-06-09] MEDS: Piperacill/Tazo 3.375gm in Dex 3.375 GM/50 ML BAG IVPB SCH ×4 (03:05→21:29)
[2018-06-09 07:28] LABS: BASO # 0.1 K/uL (0.0-0.2); BASO % 0.9 % (0.0-2.0); EOS # 0.4 K/uL (0.0-0.7); EOS % 2.6 % (0.0-4.0); HEMOGLOBIN 10.3 g/dL (12.0-18.0); LYMPH # 10.3 K/uL (1.0-4.3); LYMPH % 64.3 % (20.0-40.0); MEAN CELL VOLUME 83.6 fL (80.0-94.0); MEAN CORPUSCULAR HEMOGLOBIN 27.4 pg (27.0-31.0); MEAN CORPUSCULAR HGB CONC 32.8 g/dL (33.0-37.0); MEAN PLATELET VOLUME 9.4 fL (7.2-11.7); MONO # 0.2 K/uL (0.0-0.8); MONO % 1.1 % (0.0-10.0); NEUT % 31.1 % (50.0-75.0); NRBC % 0.1 % (0.0-2.0); RBC 3.77 Mil/uL (4.40-5.90); RED CELL DISTRIBUTION WIDTH 14.9 % (11.5-14.5); WHITE BLOOD COUNT 16.1 K/uL (4.8-10.8)
[2018-06-09 08:20] LABS: ALB/GLOB RATIO 0.9 (1.0-2.1); ALBUMIN 2.9 g/dL (3.5-5.0); ALT/SGPT 20 U/L (21-72); AST/SGOT 30 U/L (17-59); BLOOD UREA NITROGEN 15 mg/dL (9-20); CALCIUM 8.4 mg/dl (8.6-10.4); GFR NON-AFRICAN AMERICAN > 60
[2018-06-09 08:40] LABS: FERRITIN 79.3 ng/mL
[2018-06-09] MEDS: hydroCHLOROthiazide-Triamterene 25 mg-37.5 mg Cap UD PO SCH (09:46)
[2018-06-09] MEDS: Pantoprazole 40 mg EC Tab PO SCH (09:46)
[2018-06-09] MEDS: Clotrimazole 1% Cream(30 gm) TOP SCH ×2 (09:46→17:53)
[2018-06-09] MEDS: Ammonium Lactate 12% Lotion (225 g) EXT SCH ×2 (09:50→17:49)
--- NOTE | 2018-06-09 10:21 | VASCLAB ---
Date of service: 06/07/2018 PROCEDURE: Lower Extremity Venous Duplex Exam. HISTORY: bilateral leg edema PRIORS: None. TECHNIQUE: Bilateral common femoral, femoral, popliteal and posterior tibial, peroneal and great saphenous veins were evaluated. Flow was assessed with color Doppler, compressibility, assessment of phasic flow and augmentation response. Report prepared by Cj Lopez, BS, RVT FINDINGS: RIGHT: 1. Common Femoral Vein: 1.1. Compressibility - Fully compressible: Thrombus - None : Flow - Phasic: Augmentation -Normal: Reflux - None. 2. Femoral Vein: 2.1. Compressibility - Fully compressible: Thrombus - None : Flow - Phasic: Augmentation -Normal: Reflux - None. 3. Popliteal Vein: 3.1. Compressibility - Fully compressible: Thrombus - None : Flow - Phasic: Augmentation -Normal: Reflux - Yes. 4. Posterior Tibial Vein: 4.1. Compressibility - Fully compressible: Thrombus - None: Flow - Phasic: Augmentation -Normal: Reflux - None. 5. Peroneal Vein: 5.1. Compressibility - Fully compressible: Thrombus - None: Flow - Phasic: Augmentation -Normal: Reflux - None. 6. Great Saphenous Vein: 6.1. Compressibility - Fully compressible: Thrombus - None: Flow - Phasic: Augmentation - Normal: Reflux - None. LEFT: 1. Common Femoral Vein: 1.1. Compressibility - Fully compressible: Thrombus - None: Flow - Phasic: Augmentation -Normal: Reflux - None. 2. Femoral Vein: 2.1. Compressibility - Fully compressible: Thrombus - None: Flow - Phasic: Augmentation -Normal: Reflux - None. 3. Popliteal Vein: 3.1. Compressibility - Fully compressible: Thrombus - None : Flow - Phasic: Augmentation -Normal: Reflux - None. 4. Posterior Tibial Vein: 4.1. Compressibility - Fully compressible: Thrombus - None: Flow - Phasic: Augmentation -Normal: Reflux - None. 5. Peroneal Vein: 5.1. Compressibility - Fully compressible: Thrombus - None: Flow - Phasic: Augmentation -Normal: Reflux - None. 6. Great Saphenous Vein: 6.1. Compressibility - Fully compressible: Thrombus - None: Flow - Phasic: Augmentation - Normal: Reflux - None. OTHER FINDINGS: Right: None significant. Left: Multiple anechoic vascularized masses noted in the left groin area. IMPRESSION: Right: No evidence of deep or superficial vein thrombosis of the right lower extremity. Valvular incompetence of the right popliteal vein. Left: No evidence of deep or superficial vein thrombosis of the left lower extremity. Normal valve function noted of the left side.
--- NOTE | 2018-06-09 13:04 | CP.PCM.PN ---
<Marlene Rodriguez - Last Filed: 06/09/18 15:14> Subjective - Date & Time of Evaluation Date of Evaluation: 06/09/18 Time of Evaluation: 09:20 - Subjective Subjective: Patient examined at bedside. No acute overnight events. Pt reports he feels much better today, B/L LE edema improved significantly, pain improved, foot pain improved although left plantar surface still quite painful. Pt reports he was able to bear weight and walk a bit today. Denies chest pain, SOB, nausea, diarrhea Objective - Vital Signs/Intake and Output Vital Signs (last 24 hours): Temp Pulse Resp BP Pulse Ox 98.2 F 87 20 117/60 96 06/09/18 08:23 06/09/18 08:23 06/09/18 08:23 06/09/18 09:46 06/09/18 08:23 Intake and Output: 06/09/18 06/09/18 06:59 18:59 Intake Total 1400 Output Total 1000 Balance 400 - Medications Medications: Current Medications Clotrimazole (Lotrimin 1%) 0 gm TOP BID [facility] Last Admin: 06/09/18 09:46 Dose: 1 applic Diphenhydramine HCl (Benadryl) 50 mg PO Q6 PRN PRN Reason: Itching / Pruritus Emollient Ointment (Vaseline Oint) 5 gm TOP Q6 [facility] Last Admin: 06/09/18 11:20 Dose: 5 gm Furosemide (Lasix) 40 mg IVP BID [facility] Last Admin: 06/09/18 09:46 Dose: 40 mg Gabapentin (Neurontin) 300 mg PO BID [facility] Last Admin: 06/09/18 09:46 Dose: 300 mg Heparin Sodium (Porcine) (Heparin) 5,000 units SC Q8 [facility] Last Admin: 06/09/18 06:15 Dose: 5,000 units Piperacillin Sod/Tazobactam Sod (Zosyn 3.375 Gm Iv Premix) 3.375 gm in 50 mls @ 100 mls/hr IVPB Q6H [facility]; Protocol Last Admin: 06/09/18 09:50 Dose: 100 mls/hr Vancomycin HCl 1,000 mg/ (Sodium Chloride) 250 mls @ 166.6 mls/hr IVPB Q12H [facility]; Protocol Last Admin: 06/09/18 04:00 Dose: 166.6 mls/hr Lactic Acid (Lac-Hydrin 12% Lotion (225 G)) 0 gm EXT BID [facility] Last Admin: 06/09/18 09:50 Dose: 1 applic Loratadine (Claritin) 10 mg PO DAILY [facility] Last Admin: 06/09/18 09:46 Dose: 10 mg Pantoprazole Sodium (Protonix Ec Tab) 40 mg PO DAILY [facility] Last Admin: 06/09/18 09:46 Dose: 40 mg Triamterene/HCTZ (Dyazide 25 Mg-37.5 Mg) 1 cap PO DAILY [facility] Last Admin: 06/09/18 09:46 Dose: 1 cap - Labs Labs: 06/09/18 07:09 06/09/18 07:09 - Additional Findings Additional findings: - Constitutional Appears: No Acute Distress - Head Exam Head Exam: ATRAUMATIC, NORMAL INSPECTION - Eye Exam Eye Exam: EOMI, Normal appearance, PERRL - ENT Exam ENT Exam: Mucous Membranes Moist - Neck Exam Neck Exam: Normal Inspection - Respiratory Exam Respiratory Exam: Clear to Ausculation Bilateral, NORMAL BREATHING PATTERN - Cardiovascular Exam Cardiovascular Exam: REGULAR RHYTHM, +S1, +S2 - GI/Abdominal Exam GI & Abdominal Exam: Soft. absent: Tenderness - Rectal Exam Rectal Exam: Deferred - Extremities Exam Extremities Exam: Normal Inspection (diffuse dry, peeling, cracked skin), Pedal Edema (2+ pitting edema up to ankles b/l), Tenderness (plantar surfaces of feet b/l). absent: Calf Tenderness, Normal Capillary Refill - Neurological Exam Neurological Exam: Alert, Awake, CN II-XII Intact, Oriented x3 - Psychiatric Exam Psychiatric exam: Normal Affect, Normal Mood - Skin Skin Exam: Dry, Warm Additional comments: diffuse dry, flaky skin over entire body, worse on feet with cracking of plantar surfaces Assessment and Plan - Assessment and Plan (Free Text) Assessment: 73 year old male w/ pmhx of leukemia admitted for evaluation and treatment of acute LE edema and skin flaking Plan: LE Edema - no evidence of cellulitis, afebrile, no leukocytosis, cxs negative - No CHF,echo WNL, EF>50% - B/l LE Doppler: no DVT - B/l foot XR: arthrosis. - Gabapentin 300 mg PO BID-pain - Lasix 40 mg IV BID - Zosyn 3.375 g Q6H(06/07) - Vancomycin 1 g Q12H(06/07) Dry skin - Petroleum Q6H - Ammonium lactate - Clotrimazole 1% BID - Lac-Hydrin 12% BID - Benadryl 50 mg PO Q6H PRN - Podiatry consulted (Steph) Hypoalbuminemia -12.5g albumin x3 doses - Ensure supplements BID Hypertension - Monitor vitals Q4H - Triamterene/HCTZ 25-37.5 mg PO daily H/o pro-lymphocytic leukemia - Hem/onc consulted (Naveen) Allergic rhinitis - Claritin 10 mg PO daily Ppx: VTE: heparin 5000 units SC Q8H GI: PTX 40 mg PO daily PT Discussed with Dr. Marvin -Marlene Rodriguez, PGY-1 <Cortez Marvin H - Last Filed: 06/09/18 17:27> Objective - Vital Signs/Intake and Output Vital Signs (last 24 hours): Temp Pulse Resp BP Pulse Ox 98.1 F 83 20 123/61 95 06/09/18 16:00 06/09/18 16:00 06/09/18 16:00 06/09/18 16:00 06/09/18 16:00 Intake and Output: 06/09/18 06/09/18 06:59 18:59 Intake Total 1400 580 Output Total 1000 Balance 400 580 - Medications Medications: Current Medications Albumin Human (Albumin Human 25% (12.5 Gm/50 Ml)) 12.5 gm IV Q2 [facility] Stop: 06/09/18 18:01 Last Admin: 06/09/18 16:07 Dose: 12.5 gm Clotrimazole (Lotrimin 1%) 0 gm TOP BID [facility] Last Admin: 06/09/18 09:46 Dose: 1 applic Diphenhydramine HCl (Benadryl) 50 mg PO Q6 PRN PRN Reason: Itching / Pruritus Emollient Ointment (Vaseline Oint) 5 gm TOP Q6 [facility] Last Admin: 06/09/18 11:20 Dose: 5 gm Furosemide (Lasix) 40 mg IVP BID [facility] Last Admin: 06/09/18 09:46 Dose: 40 mg Gabapentin (Neurontin) 300 mg PO BID [facility] Last Admin: 06/09/18 09:46 Dose: 300 mg Heparin Sodium (Porcine) (Heparin) 5,000 units SC Q8 [facility] Last Admin: 06/09/18 14:35 Dose: 5,000 units Piperacillin Sod/Tazobactam Sod (Zosyn 3.375 Gm Iv Premix) 3.375 gm in 50 mls @ 100 mls/hr IVPB Q6H [facility]; Protocol Last Admin: 06/09/18 17:00 Dose: 100 mls/hr Vancomycin HCl 1,000 mg/ (Sodium Chloride) 250 mls @ 166.6 mls/hr IVPB Q12H [facility]; Protocol Last Admin: 06/09/18 04:00 Dose: 166.6 mls/hr Lactic Acid (Lac-Hydrin 12% Lotion (225 G)) 0 gm EXT BID [facility] Last Admin: 06/09/18 09:50 Dose: 1 applic Loratadine (Claritin) 10 mg PO DAILY [facility] Last Admin: 06/09/18 09:46 Dose: 10 mg Pantoprazole Sodium (Protonix Ec Tab) 40 mg PO DAILY [facility] Last Admin: 06/09/18 09:46 Dose: 40 mg Triamterene/HCTZ (Dyazide 25 Mg-37.5 Mg) 1 cap PO DAILY [facility] Last Admin: 06/09/18 09:46 Dose: 1 cap - Labs Labs: 06/09/18 07:09 06/09/18 07:09 Attending/Attestation - Attestation I have personally seen and examined this patient.: Yes I have fully participated in the care of the patient.: Yes I have reviewed all pertinent clinical information, including history, physical exam and plan: Yes Notes (Text): 06/09/18 17:23 Medical attending: Patient was seen and examined by me, reviewed the above note by medical/surgery registered nurse and agrees the above. When we saw the patient today he reported that he felt like his lower extremities were much better than the previous day at significantly better since admission. He reports less pain as well as less swelling in his lower extremities. He still reports pain on the left sole of his feet when trying to walk. The skin unfortunately still appears to be very dry and scaly bilaterally. His echo came back his ejection fraction is not low, we will try giving the patient some runs of IV albumen along with the Lasix to see if this can further help with the lower extremity swelling. As mentioned previously the patient was living by himself and eating very poorly, was malnourished was brought into his children's house because they were concerned about his malnutrition and him not being able to take care of it may be that the low protein and low albumen secondary to this The patient was seen and evaluated by hematology oncology. He's given need outpa tient follow-up with hematology oncology Also PT/OT evaluation Cortez Marvin
[2018-06-09] MEDS: Albumin Human 25% (12.5 gm/50 ml) IV SCH ×3 (14:36→17:47)
--- NOTE | 2018-06-09 15:06 | CP.PCM.PN ---
Subjective - Date & Time of Evaluation Date of Evaluation: 06/09/18 Time of Evaluation: 14:58 - Subjective Subjective: Podiatry - Dr. Choi 73 year old male patient PMHx HTN, leukemia, eczema seen and evaluated at bedside for bilateral foot pain. Patient sleeping during rounds. NAD. No acute events overnight. Reports pain in feet has decreased, scaling improving with topical medication. Denies n/v/f/d/c/sob. Objective - Vital Signs/Intake and Output Vital Signs (last 24 hours): Temp Pulse Resp BP Pulse Ox 98.2 F 87 20 117/60 96 06/09/18 08:23 06/09/18 08:23 06/09/18 08:23 06/09/18 09:46 06/09/18 08:23 Intake and Output: 06/09/18 06/09/18 06:59 18:59 Intake Total 1400 Output Total 1000 Balance 400 - Medications Medications: Current Medications Albumin Human (Albumin Human 25% (12.5 Gm/50 Ml)) 12.5 gm IV Q2 [facility] Stop: 06/09/18 18:01 Last Admin: 06/09/18 14:36 Dose: 12.5 gm Clotrimazole (Lotrimin 1%) 0 gm TOP BID [facility] Last Admin: 06/09/18 09:46 Dose: 1 applic Diphenhydramine HCl (Benadryl) 50 mg PO Q6 PRN PRN Reason: Itching / Pruritus Emollient Ointment (Vaseline Oint) 5 gm TOP Q6 [facility] Last Admin: 06/09/18 11:20 Dose: 5 gm Furosemide (Lasix) 40 mg IVP BID [facility] Last Admin: 06/09/18 09:46 Dose: 40 mg Gabapentin (Neurontin) 300 mg PO BID [facility] Last Admin: 06/09/18 09:46 Dose: 300 mg Heparin Sodium (Porcine) (Heparin) 5,000 units SC Q8 [facility] Last Admin: 06/09/18 14:35 Dose: 5,000 units Piperacillin Sod/Tazobactam Sod (Zosyn 3.375 Gm Iv Premix) 3.375 gm in 50 mls @ 100 mls/hr IVPB Q6H [facility]; Protocol Last Admin: 06/09/18 09:50 Dose: 100 mls/hr Vancomycin HCl 1,000 mg/ (Sodium Chloride) 250 mls @ 166.6 mls/hr IVPB Q12H [facility]; Protocol Last Admin: 06/09/18 04:00 Dose: 166.6 mls/hr Lactic Acid (Lac-Hydrin 12% Lotion (225 G)) 0 gm EXT BID [facility] Last Admin: 06/09/18 09:50 Dose: 1 applic Loratadine (Claritin) 10 mg PO DAILY [facility] Last Admin: 06/09/18 09:46 Dose: 10 mg Pantoprazole Sodium (Protonix Ec Tab) 40 mg PO DAILY [facility] Last Admin: 06/09/18 09:46 Dose: 40 mg Triamterene/HCTZ (Dyazide 25 Mg-37.5 Mg) 1 cap PO DAILY [facility] Last Admin: 06/09/18 09:46 Dose: 1 cap - Labs Labs: 06/09/18 07:09 06/09/18 07:09 - Constitutional Appears: Well, Non-toxic, No Acute Distress - Extremities Exam Additional comments: VASC: DP/PT pulses palpable 2/4 b/l. CFT <3 seconds. TG warm to warm. Nonpitting edema b/l. NEURO: Gross sensation intact b/l. DERM: Severe xerosis + scaling present with fissuring throughout plantar aspect of foot b/l, improving - no drainage, purulence. Erythema noted to bilateral LE. ORTHO: Pain on palpation to fissures. ROM limited 2/2 edema. - Neurological Exam Neurological Exam: Alert, Awake, Oriented x3 - Psychiatric Exam Psychiatric exam: Normal Affect, Normal Mood Assessment and Plan - Assessment and Plan (Free Text) Assessment: 73M PMHx HTN, leukemia, eczema with painful fissures b/l feet, improving Plan: Patient seen and evaluated with attending, Dr. Steph ALVAREZ, WBC 16.1-trending upwards LE duplex: (-)DVT, valvular incompetence R popliteal v. Bilateral foot XR: (-)fracture, vascular calcifications Clotrimazole + Ammonium lactate TOP BID Podiatry will continue to follow
[2018-06-09] MEDS ORDERED: Potassium Chloride 20 mEq ER Tab PO ONE (15:15)
[2018-06-10] MEDS: Petrolatum Oint Foilpak (5 gm) TOP SCH ×4 (00:25→18:18)
[2018-06-10] MEDS: Piperacill/Tazo 3.375gm in Dex 3.375 GM/50 ML BAG IVPB SCH ×3 (04:00→16:16)
--- NOTE | 2018-06-10 07:25 | CP.PCM.PN ---
<Marlene Rodriguez - Last Filed: 06/10/18 11:54> Subjective - Date & Time of Evaluation Date of Evaluation: 06/10/18 Time of Evaluation: 07:10 - Subjective Subjective: Patient examined at bedside. No acute overnight events. Pt reports lower extremity swelling and pain has improved; still reports pain on plantar surface of left foot. Reports skin is still excessively dry and flaking, admits to using creams as instructed. Denies chest pain, SOB, abd pain, nausea, diarrhea. Objective - Vital Signs/Intake and Output Vital Signs (last 24 hours): Temp Pulse Resp BP Pulse Ox 98.4 F 89 20 126/61 96 06/10/18 00:00 06/10/18 00:00 06/10/18 00:00 06/10/18 00:00 06/10/18 00:00 Intake and Output: 06/10/18 06/10/18 06:59 18:59 Intake Total 1400 Output Total 500 Balance 900 - Medications Medications: Current Medications Clotrimazole (Lotrimin 1%) 0 gm TOP BID [facility] Last Admin: 06/09/18 17:53 Dose: 1 applic Diphenhydramine HCl (Benadryl) 50 mg PO Q6 PRN PRN Reason: Itching / Pruritus Emollient Ointment (Vaseline Oint) 5 gm TOP Q6 [facility] Last Admin: 06/10/18 05:05 Dose: 5 gm Furosemide (Lasix) 40 mg IVP BID [facility] Last Admin: 06/09/18 17:54 Dose: 40 mg Gabapentin (Neurontin) 300 mg PO BID [facility] Last Admin: 06/09/18 17:53 Dose: 300 mg Heparin Sodium (Porcine) (Heparin) 5,000 units SC Q8 [facility] Last Admin: 06/10/18 05:05 Dose: 5,000 units Piperacillin Sod/Tazobactam Sod (Zosyn 3.375 Gm Iv Premix) 3.375 gm in 50 mls @ 100 mls/hr IVPB Q6H [facility]; Protocol Last Admin: 06/10/18 04:00 Dose: 100 mls/hr Vancomycin HCl 1,000 mg/ (Sodium Chloride) 250 mls @ 166.6 mls/hr IVPB Q12H [facility]; Protocol Last Admin: 06/10/18 05:05 Dose: 166.6 mls/hr Lactic Acid (Lac-Hydrin 12% Lotion (225 G)) 0 gm EXT BID [facility] Last Admin: 06/09/18 17:49 Dose: 1 applic Loratadine (Claritin) 10 mg PO DAILY [facility] Last Admin: 06/09/18 09:46 Dose: 10 mg Pantoprazole Sodium (Protonix Ec Tab) 40 mg PO DAILY [facility] Last Admin: 06/09/18 09:46 Dose: 40 mg Triamterene/HCTZ (Dyazide 25 Mg-37.5 Mg) 1 cap PO DAILY [facility] Last Admin: 06/09/18 09:46 Dose: 1 cap - Labs Labs: 06/09/18 07:09 06/09/18 07:09 - Constitutional Appears: Non-toxic, No Acute Distress - Head Exam Head Exam: ATRAUMATIC, NORMOCEPHALIC - Eye Exam Eye Exam: EOMI, Normal appearance - ENT Exam ENT Exam: Mucous Membranes Moist, Normal Exam - Respiratory Exam Respiratory Exam: Clear to Ausculation Bilateral, NORMAL BREATHING PATTERN - Cardiovascular Exam Cardiovascular Exam: REGULAR RHYTHM, +S1, +S2 - GI/Abdominal Exam GI & Abdominal Exam: Soft. absent: Tenderness - Extremities Exam Extremities Exam: absent: Calf Tenderness, Pedal Edema Additional comments: Tender to palpation along left plantar foot - Neurological Exam Neurological Exam: Alert, Awake, Oriented x3 - Psychiatric Exam Psychiatric exam: Normal Affect, Normal Mood - Skin Skin Exam: Warm Additional comments: Diffusely dry skin. Flaking, peeling noted. Pt actively scratching. Some erythema along anterior shins b/l. Assessment and Plan - Assessment and Plan (Free Text) Assessment: 73 year old male w/ pmhx of leukemia admitted for evaluation and treatment of acute LE edema and skin flaking Plan: LE Edema - no evidence of cellulitis, afebrile, no leukocytosis, cxs negative - No CHF,echo WNL, EF>50% - B/l LE Doppler: no DVT - B/l foot XR: arthrosis. - Gabapentin 300 mg PO BID-pain - Lasix 40 mg IV BID - IV Abx, today Dry skin - Petroleum Q6H - Ammonium lactate - Clotrimazole 1% BID - Lac-Hydrin 12% BID - Benadryl 50 mg PO Q6H PRN - Podiatry consulted (Steph) Hypoalbuminemia - 12.5g albumin x3 doses(12/14) - Ensure supplements BID Hypertension - Monitor vitals Q4H - Triamterene/HCTZ 25-37.5 mg PO daily H/o pro-lymphocytic leukemia - lymphocyte count increasing - f/u blood flow cytometry - Hem/onc consulted (Naveen) Allergic rhinitis - Claritin 10 mg PO daily Ppx: VTE: heparin 5000 units SC Q8H GI: PTX 40 mg PO daily PT Discussed with Dr. Marvin -Marlene Rodriguez, PGY-1 <Cortez Marvin H - Last Filed: 06/10/18 12:10> Objective - Vital Signs/Intake and Output Vital Signs (last 24 hours): Temp Pulse Resp BP Pulse Ox 98.1 F 83 20 113/60 95 06/10/18 07:49 06/10/18 07:49 06/10/18 07:49 06/10/18 09:31 06/10/18 07:49 Intake and Output: 06/10/18 06/10/18 06:59 18:59 Intake Total 1400 Output Total 500 Balance 900 - Medications Medications: Current Medications Clotrimazole (Lotrimin 1%) 0 gm TOP BID [facility] Last Admin: 06/10/18 09:39 Dose: 1 applic Diphenhydramine HCl (Benadryl) 50 mg PO Q6 PRN PRN Reason: Itching / Pruritus Emollient Ointment (Vaseline Oint) 5 gm TOP Q6 [facility] Last Admin: 06/10/18 05:05 Dose: 5 gm Furosemide (Lasix) 40 mg IVP BID [facility] Last Admin: 06/10/18 09:31 Dose: 40 mg Gabapentin (Neurontin) 300 mg PO BID [facility] Last Admin: 06/10/18 09:31 Dose: 300 mg Heparin Sodium (Porcine) (Heparin) 5,000 units SC Q8 [facility] Last Admin: 06/10/18 05:05 Dose: 5,000 units Piperacillin Sod/Tazobactam Sod (Zosyn 3.375 Gm Iv Premix) 3.375 gm in 50 mls @ 100 mls/hr IVPB Q6H [facility]; Protocol Last Admin: 06/10/18 09:41 Dose: 100 mls/hr Vancomycin HCl 1,000 mg/ (Sodium Chloride) 250 mls @ 166.6 mls/hr IVPB Q12H [facility]; Protocol Last Admin: 12/15/18 05:05 Dose: 166.6 mls/hr Lactic Acid (Lac-Hydrin 12% Lotion (225 G)) 0 gm EXT BID [facility] Last Admin: 06/10/18 09:32 Dose: 1 applic Loratadine (Claritin) 10 mg PO DAILY [facility] Last Admin: 06/10/18 09:31 Dose: 10 mg Pantoprazole Sodium (Protonix Ec Tab) 40 mg PO DAILY [facility] Last Admin: 06/10/18 09:31 Dose: 40 mg Triamterene/HCTZ (Dyazide 25 Mg-37.5 Mg) 1 cap PO DAILY [facility] Last Admin: 06/10/18 09:39 Dose: 1 cap - Labs Labs: 06/10/18 07:55 06/10/18 07:55 Attending/Attestation - Attestation I have personally seen and examined this patient.: Yes I have fully participated in the care of the patient.: Yes I have reviewed all pertinent clinical information, including history, physical exam and plan: Yes Notes (Text): 06/10/18 12:10 Medical attending: Patient was seen and examined by me, I reviewed the above note by the medical administrative specialist Unless that we gave him 3 runs of 12.5 g of IV albumen. We also continue the Lasix as well. Today his lower extremities look much less edema. The patient remarks that he feels like they're back to normal now. He no longer has calf area pain and the only pain that he has is on the left bottom of his foot whenever he tries to walk. He says it's feels as if it's the skin pain due to the previous edema on some stretching there. Overall he reports that he feels much better. However on review of his lab work shows that he has a white blood cell count of 18. He denies having any fevers. Further inspection shows that it's mostly lymphocytes that are present. The patient does have a history of leukemia about 10 years ago. I spoke today with hematology oncology at this time were advised to order a blood flow cytometry. So we've done that. 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
[2018-06-10 08:12] LABS: BASO # 0.2 K/uL (0.0-0.2); BASO % 1.2 % (0.0-2.0); EOS # 0.4 K/uL (0.0-0.7); EOS % 2.4 % (0.0-4.0); HEMOGLOBIN 10.1 g/dL (12.0-18.0); LYMPH # 11.1 K/uL (1.0-4.3); LYMPH % 61.5 % (20.0-40.0); MEAN CELL VOLUME 83.8 fL (80.0-94.0); MEAN CORPUSCULAR HEMOGLOBIN 26.9 pg (27.0-31.0); MEAN CORPUSCULAR HGB CONC 32.1 g/dL (33.0-37.0); MEAN PLATELET VOLUME 8.8 fL (7.2-11.7); MONO # 0.1 K/uL (0.0-0.8); MONO % 0.8 % (0.0-10.0); NEUT # 6.1 K/uL (1.8-7.0); NEUT % 34.1 % (50.0-75.0); NRBC % 0.2 % (0.0-2.0); RBC 3.75 Mil/uL (4.40-5.90); RED CELL DISTRIBUTION WIDTH 14.9 % (11.5-14.5)
[2018-06-10 08:22] LABS: ALBUMIN 3.1 g/dL (3.5-5.0); ALT/SGPT 15 U/L (21-72); AST/SGOT 32 U/L (17-59); BLOOD UREA NITROGEN 18 mg/dL (9-20); CALCIUM 8.9 mg/dl (8.6-10.4); GFR NON-AFRICAN AMERICAN > 60
[2018-06-10] MEDS ORDERED: Potassium Chloride 20 mEq ER Tab PO ONE (08:27)
[2018-06-10] MEDS: Pantoprazole 40 mg EC Tab PO SCH (09:31)
[2018-06-10] MEDS: Ammonium Lactate 12% Lotion (225 g) EXT SCH ×2 (09:32→18:17)
[2018-06-10] MEDS: hydroCHLOROthiazide-Triamterene 25 mg-37.5 mg Cap UD PO SCH (09:39)
[2018-06-10] MEDS: Clotrimazole 1% Cream(30 gm) TOP SCH ×2 (09:39→18:17)
--- NOTE | 2018-06-10 12:22 | CP.PCM.PN ---
Subjective - Date & Time of Evaluation Date of Evaluation: 06/10/18 Time of Evaluation: 12:17 - Subjective Subjective: Podiatry progress note for attending Dr. Choi 73 year old male patient seen and evaluated at bedside for bilateral foot pain. Patient was resing in bed and NAD. No acute events overnight. Patient reports pain in feet has decreased, scaling improving with topical medication. He denies any overnight n/v/f/d/c/sob. He denies any other pedal complaint at this time Objective - Vital Signs/Intake and Output Vital Signs (last 24 hours): Temp Pulse Resp BP Pulse Ox 98.1 F 83 20 113/60 95 06/10/18 07:49 06/10/18 07:49 06/10/18 07:49 06/10/18 09:31 06/10/18 07:49 Intake and Output: 06/10/18 06/10/18 06:59 18:59 Intake Total 1400 Output Total 500 Balance 900 - Medications Medications: Current Medications Clotrimazole (Lotrimin 1%) 0 gm TOP BID [facility] Last Admin: 06/10/18 09:39 Dose: 1 applic Diphenhydramine HCl (Benadryl) 50 mg PO Q6 PRN PRN Reason: Itching / Pruritus Emollient Ointment (Vaseline Oint) 5 gm TOP Q6 [facility] Last Admin: 06/10/18 05:05 Dose: 5 gm Furosemide (Lasix) 40 mg IVP BID [facility] Last Admin: 06/10/18 09:31 Dose: 40 mg Gabapentin (Neurontin) 300 mg PO BID [facility] Last Admin: 06/10/18 09:31 Dose: 300 mg Heparin Sodium (Porcine) (Heparin) 5,000 units SC Q8 [facility] Last Admin: 06/10/18 05:05 Dose: 5,000 units Piperacillin Sod/Tazobactam Sod (Zosyn 3.375 Gm Iv Premix) 3.375 gm in 50 mls @ 100 mls/hr IVPB Q6H [facility]; Protocol Last Admin: 06/10/18 09:41 Dose: 100 mls/hr Vancomycin HCl 1,000 mg/ (Sodium Chloride) 250 mls @ 166.6 mls/hr IVPB Q12H [facility]; Protocol Last Admin: 06/10/18 05:05 Dose: 166.6 mls/hr Lactic Acid (Lac-Hydrin 12% Lotion (225 G)) 0 gm EXT BID [facility] Last Admin: 06/10/18 09:32 Dose: 1 applic Loratadine (Claritin) 10 mg PO DAILY [facility] Last Admin: 06/10/18 09:31 Dose: 10 mg Pantoprazole Sodium (Protonix Ec Tab) 40 mg PO DAILY [facility] Last Admin: 06/10/18 09:31 Dose: 40 mg Triamterene/HCTZ (Dyazide 25 Mg-37.5 Mg) 1 cap PO DAILY [facility] Last Admin: 06/10/18 09:39 Dose: 1 cap - Labs Labs: 06/10/18 07:55 06/10/18 07:55 - Constitutional Appears: Well, No Acute Distress - Head Exam Head Exam: ATRAUMATIC, NORMOCEPHALIC - Extremities Exam Additional comments: B/L LE focused exam: VASC: DP/PT pulses palpable 2/4 b/l. Cap refill <3 seconds to all digits. Temp gradient warm to warm. Moderate non-pitting edema b/l. NEURO: Gross sensation intact b/l. DERM: Severe xerosis + scaling present with fissuring throughout plantar aspect of foot b/l, improving - no drainage, purulence. Erythema noted to bilateral LE. MSK: Pain on palpation to fissures. ROM limited due edema. - Neurological Exam Neurological Exam: Alert, Awake, Oriented x3 - Psychiatric Exam Psychiatric exam: Normal Affect, Normal Mood Assessment and Plan - Assessment and Plan (Free Text) Assessment: 73 y/o M patient with painful fissures b/l feet, improving Plan: Patient seen and evaluated with attending, Dr. Choi Plan discussed with Dr. Choi Charts, labs and vitals reviewed; Afebrile, WBC 18 LE duplex: (-) DVT, valvular incompetence R popliteal v. Bilateral foot XR: (-) fracture, vascular calcifications Clotrimazole + Ammonium lactate TOP applied to b/l LE Podiatry will continue to follow up the patient while in house.
--- NOTE | 2018-06-10 20:45 | CP.PCM.PN ---
Subjective - Date & Time of Evaluation Date of Evaluation: 06/09/18 Time of Evaluation: 12:00 - Subjective Subjective: Feeling better. Objective - Vital Signs/Intake and Output Vital Signs (last 24 hours): Temp Pulse Resp BP Pulse Ox 98.4 F 95 H 20 136/74 95 06/10/18 15:00 06/10/18 15:00 06/10/18 15:00 06/10/18 18:13 06/10/18 15:00 Intake and Output: 06/10/18 06/11/18 18:59 06:59 Intake Total 550 Balance 550 - Medications Medications: Current Medications Clotrimazole (Lotrimin 1%) 0 gm TOP BID [facility] Last Admin: 06/10/18 18:17 Dose: 1 applic Diphenhydramine HCl (Benadryl) 50 mg PO Q6 PRN PRN Reason: Itching / Pruritus Emollient Ointment (Vaseline Oint) 5 gm TOP Q6 [facility] Last Admin: 06/10/18 18:18 Dose: 5 gm Furosemide (Lasix) 40 mg IVP BID [facility] Last Admin: 06/10/18 18:13 Dose: 40 mg Gabapentin (Neurontin) 300 mg PO BID [facility] Last Admin: 06/10/18 18:13 Dose: 300 mg Heparin Sodium (Porcine) (Heparin) 5,000 units SC Q8 [facility] Last Admin: 06/10/18 13:54 Dose: 5,000 units Lactic Acid (Lac-Hydrin 12% Lotion (225 G)) 0 gm EXT BID [facility] Last Admin: 06/10/18 18:17 Dose: 1 applic Loratadine (Claritin) 10 mg PO DAILY [facility] Last Admin: 06/10/18 09:31 Dose: 10 mg Pantoprazole Sodium (Protonix Ec Tab) 40 mg PO DAILY [facility] Last Admin: 06/10/18 09:31 Dose: 40 mg Triamterene/HCTZ (Dyazide 25 Mg-37.5 Mg) 1 cap PO DAILY [facility] Last Admin: 06/10/18 09:39 Dose: 1 cap - Labs Labs: 06/10/18 07:55 06/10/18 07:55 - Head Exam Head Exam: ATRAUMATIC - Eye Exam Eye Exam: Normal appearance - ENT Exam ENT Exam: Mucous Membranes Dry - Respiratory Exam Respiratory Exam: NORMAL BREATHING PATTERN - Cardiovascular Exam Cardiovascular Exam: +S1, +S2 - GI/Abdominal Exam GI & Abdominal Exam: Normal Bowel Sounds Assessment and Plan (1) Anemia Assessment & Plan: borderline b12 will give B12 IM Status: Acute (2) Leukocytosis Assessment & Plan: on antibiotics slightly elevated Status: Acute (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
--- NOTE | 2018-06-10 20:46 | CP.PCM.PN ---
Subjective - Date & Time of Evaluation Date of Evaluation: 06/10/18 Time of Evaluation: 18:00 - Subjective Subjective: Feeling better, less pain in feet Objective - Vital Signs/Intake and Output Vital Signs (last 24 hours): Temp Pulse Resp BP Pulse Ox 98.4 F 95 H 20 136/74 95 06/10/18 15:00 06/10/18 15:00 06/10/18 15:00 06/10/18 18:13 06/10/18 15:00 Intake and Output: 06/10/18 06/11/18 18:59 06:59 Intake Total 550 Balance 550 - Medications Medications: Current Medications Clotrimazole (Lotrimin 1%) 0 gm TOP BID [facility] Last Admin: 06/10/18 18:17 Dose: 1 applic Diphenhydramine HCl (Benadryl) 50 mg PO Q6 PRN PRN Reason: Itching / Pruritus Emollient Ointment (Vaseline Oint) 5 gm TOP Q6 [facility] Last Admin: 06/10/18 18:18 Dose: 5 gm Furosemide (Lasix) 40 mg IVP BID [facility] Last Admin: 06/10/18 18:13 Dose: 40 mg Gabapentin (Neurontin) 300 mg PO BID [facility] Last Admin: 06/10/18 18:13 Dose: 300 mg Heparin Sodium (Porcine) (Heparin) 5,000 units SC Q8 [facility] Last Admin: 06/10/18 13:54 Dose: 5,000 units Lactic Acid (Lac-Hydrin 12% Lotion (225 G)) 0 gm EXT BID [facility] Last Admin: 06/10/18 18:17 Dose: 1 applic Loratadine (Claritin) 10 mg PO DAILY [facility] Last Admin: 06/10/18 09:31 Dose: 10 mg Pantoprazole Sodium (Protonix Ec Tab) 40 mg PO DAILY [facility] Last Admin: 06/10/18 09:31 Dose: 40 mg Triamterene/HCTZ (Dyazide 25 Mg-37.5 Mg) 1 cap PO DAILY [facility] Last Admin: 06/10/18 09:39 Dose: 1 cap - Labs Labs: 06/10/18 07:55 06/10/18 07:55 - Head Exam Head Exam: ATRAUMATIC - Eye Exam Eye Exam: Normal appearance - ENT Exam ENT Exam: Mucous Membranes Dry - Respiratory Exam Respiratory Exam: NORMAL BREATHING PATTERN - Cardiovascular Exam Cardiovascular Exam: +S1, +S2 - GI/Abdominal Exam GI & Abdominal Exam: Normal Bowel Sounds Assessment and Plan (1) Anemia Assessment & Plan: borderline b12 B12 supplementation Status: Acute (2) Leukocytosis Assessment & Plan: rising despite antibiotics for flow cytometery evaluation on peripheral blood Status: Acute (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
[2018-06-11] MEDS: Petrolatum Oint Foilpak (5 gm) TOP SCH ×4 (06:05→18:00)
[2018-06-11 07:14] LABS: BASO % 0.2 % (0.0-2.0); EOS # 0.4 K/uL (0.0-0.7); HEMOGLOBIN 10.4 g/dL (12.0-18.0); LYMPH # 12.2 K/uL (1.0-4.3); LYMPH % 59.6 % (20.0-40.0); MEAN CELL VOLUME 83.8 fL (80.0-94.0); MEAN CORPUSCULAR HGB CONC 32.2 g/dL (33.0-37.0); MEAN PLATELET VOLUME 9.1 fL (7.2-11.7); MONO # 0.3 K/uL (0.0-0.8); MONO % 1.7 % (0.0-10.0); NEUT # 7.5 K/uL (1.8-7.0); NEUT % 36.5 % (50.0-75.0); NRBC % 0.2 % (0.0-2.0); RBC 3.84 Mil/uL (4.40-5.90); RED CELL DISTRIBUTION WIDTH 14.7 % (11.5-14.5); WHITE BLOOD COUNT 20.5 K/uL (4.8-10.8)
[2018-06-11 07:25] LABS: ALBUMIN 3.1 g/dL (3.5-5.0); ALT/SGPT 23 U/L (21-72); AST/SGOT 26 U/L (17-59); BLOOD UREA NITROGEN 20 mg/dL (9-20); CALCIUM 8.9 mg/dl (8.6-10.4); GFR NON-AFRICAN AMERICAN > 60
--- NOTE | 2018-06-11 08:09 | CP.PCM.PN ---
<RodriguezMarlene - Last Filed: 06/11/18 14:26> Subjective - Date & Time of Evaluation Date of Evaluation: 06/11/18 Time of Evaluation: 08:50 - Subjective Subjective: Patient examined at bedside. No acute overnight events. Patient reports some new tightness around his face. [id number] he has been able to get up and ambulate short distances to bathroom without too much pain. Denies chest pain, SOB, abd pain, nausea, diarrhea. Objective - Vital Signs/Intake and Output Vital Signs (last 24 hours): Temp Pulse Resp BP Pulse Ox 98.8 F 98 H 20 126/67 97 06/11/18 07:46 06/11/18 07:46 06/11/18 07:46 06/11/18 07:46 06/11/18 07:46 Intake and Output: 06/11/18 06/11/18 06:59 18:59 Intake Total 850 Output Total 600 Balance 250 - Medications Medications: Current Medications Clotrimazole (Lotrimin 1%) 0 gm TOP BID [facility] Last Admin: 06/10/18 18:17 Dose: 1 applic Cyanocobalamin (Vitamin B12 1000 Mcg/Ml Inj) 1,000 mcg IM DAILY [facility] Stop: 06/13/18 10:01 Diphenhydramine HCl (Benadryl) 50 mg PO Q6 PRN PRN Reason: Itching / Pruritus Emollient Ointment (Vaseline Oint) 5 gm TOP Q6 [facility] Last Admin: 06/11/18 06:05 Dose: 5 gm Furosemide (Lasix) 40 mg IVP BID [facility] Last Admin: 06/10/18 18:13 Dose: 40 mg Gabapentin (Neurontin) 300 mg PO BID [facility] Last Admin: 06/10/18 18:13 Dose: 300 mg Heparin Sodium (Porcine) (Heparin) 5,000 units SC Q8 [facility] Last Admin: 06/11/18 06:05 Dose: 5,000 units Lactic Acid (Lac-Hydrin 12% Lotion (225 G)) 0 gm EXT BID [facility] Last Admin: 06/10/18 18:17 Dose: 1 applic Loratadine (Claritin) 10 mg PO DAILY [facility] Last Admin: 06/10/18 09:31 Dose: 10 mg Pantoprazole Sodium (Protonix Ec Tab) 40 mg PO DAILY [facility] Last Admin: 06/10/18 09:31 Dose: 40 mg Triamterene/HCTZ (Dyazide 25 Mg-37.5 Mg) 1 cap PO DAILY [facility] Last Admin: 06/10/18 09:39 Dose: 1 cap - Labs Labs: 06/11/18 06:58 06/11/18 06:58 - Constitutional Appears: Non-toxic, No Acute Distress - Head Exam Head Exam: ATRAUMATIC, NORMAL INSPECTION, NORMOCEPHALIC - Eye Exam Eye Exam: EOMI. absent: Normal appearance Additional comments: Periorbital edema, pt unable to fully open eyes. Mild edema to entire face. Dry skin - ENT Exam ENT Exam: Mucous Membranes Moist, Normal Exam - Neck Exam Neck Exam: Normal Inspection - Respiratory Exam Respiratory Exam: Clear to Ausculation Bilateral, NORMAL BREATHING PATTERN - Cardiovascular Exam Cardiovascular Exam: REGULAR RHYTHM, +S1, +S2 - GI/Abdominal Exam GI & Abdominal Exam: Soft, Normal Bowel Sounds - Extremities Exam Extremities Exam: Pedal Edema. absent: Normal Inspection Additional comments: B/L LE edema worse than yesterday. L>R. Dry flaking patches of skin noted. Plantar surface of feet covered is flaking skin. No visible open lesions. Toenails thick and discolored. - Neurological Exam Neurological Exam: Alert, Awake, Oriented x3 - Psychiatric Exam Psychiatric exam: Normal Affect, Normal Mood - Skin Skin Exam: Dry, Normal Color, Warm Assessment and Plan - Assessment and Plan (Free Text) Plan: LE Edema - LE edema today - no evidence of cellulitis, afebrile, no leukocytosis, cxs negative - No CHF,echo WNL, EF>50% - B/l LE Doppler: no DVT - B/l foot XR: arthrosis. - Gabapentin 300 mg PO BID-pain - Lasix 40 mg IV BID - IV Abx, today Dry skin - Petroleum Q6H - Ammonium lactate - Clotrimazole 1% BID - Lac-Hydrin 12% BID - Benadryl 50 mg PO Q6H PRN - Podiatry consulted (Steph) Hypoalbuminemia - 12.5g albumin x3 doses(06/11) - 12.5g albumin x3 doses(06/09) - Ensure supplements BID Hypertension - Monitor vitals Q4H - Triamterene/HCTZ 25-37.5 mg PO daily H/o pro-lymphocytic leukemia - lymphocyte count increasing - f/u blood flow cytometry - Hem/onc consulted (Naveen) Allergic rhinitis - Claritin 10 mg PO daily Ppx: VTE: heparin 5000 units SC Q8H GI: PTX 40 mg PO daily PT Discussed with Dr. Marvin -Marlene Rodriguez, PGY-1 <Cortez Marvin H - Last Filed: 06/11/18 14:30> Objective - Vital Signs/Intake and Output Vital Signs (last 24 hours): Temp Pulse Resp BP Pulse Ox 98.8 F 98 H 20 126/67 97 06/11/18 07:46 06/11/18 07:46 06/11/18 07:46 06/11/18 09:36 06/11/18 07:46 Intake and Output: 06/11/18 06/11/18 06:59 18:59 Intake Total 850 Output Total 600 Balance 250 - Medications Medications: Current Medications Albumin Human (Albumin Human 25% (12.5 Gm/50 Ml)) 12.5 gm IV Q2 [facility] Stop: 06/11/18 18:01 Last Admin: 06/11/18 13:27 Dose: 12.5 gm Clotrimazole (Lotrimin 1%) 0 gm TOP BID [facility] Last Admin: 06/11/18 09:36 Dose: 1 applic Cyanocobalamin (Vitamin B12 1000 Mcg/Ml Inj) 1,000 mcg IM DAILY [facility] Stop: 06/13/18 10:01 Last Admin: 06/11/18 09:35 Dose: 1,000 mcg Diphenhydramine HCl (Benadryl) 50 mg PO Q6 PRN PRN Reason: Itching / Pruritus Emollient Ointment (Vaseline Oint) 5 gm TOP Q6 [facility] Last Admin: 06/11/18 12:55 Dose: 5 gm Furosemide (Lasix) 40 mg IVP BID [facility] Last Admin: 06/11/18 09:36 Dose: 40 mg Gabapentin (Neurontin) 300 mg PO BID [facility] Last Admin: 06/11/18 09:35 Dose: 300 mg Heparin Sodium (Porcine) (Heparin) 5,000 units SC Q8 [facility] Last Admin: 06/11/18 13:27 Dose: 5,000 units Lactic Acid (Lac-Hydrin 12% Lotion (225 G)) 0 gm EXT BID [facility] Last Admin: 06/11/18 09:37 Dose: 1 applic Loratadine (Claritin) 10 mg PO DAILY [facility] Last Admin: 06/11/18 09:35 Dose: 10 mg Pantoprazole Sodium (Protonix Ec Tab) 40 mg PO DAILY [facility] Last Admin: 06/11/18 09:35 Dose: 40 mg Triamterene/HCTZ (Dyazide 25 Mg-37.5 Mg) 1 cap PO DAILY [facility] Last Admin: 06/11/18 09:36 Dose: 1 cap - Labs Labs: 06/11/18 06:58 06/11/18 06:58 Attending/Attestation - Attestation I have personally seen and examined this patient.: Yes I have fully participated in the care of the patient.: Yes I have reviewed all pertinent clinical information, including history, physical exam and plan: Yes Notes (Text): 06/11/18 14:28 Medical attending: Patient was seen and examined by me as well, agree with the above note by the resident The patient was not in any acute distress - he reported the pain in his left foot has now resolved - he reports not having pain anywhere on his body now. His skin shows a lot of dry flaky desquamnation. Also the skin appears to be very thin as well. Inspections of lower extremities shows trace edema. He reports they are much less swollen and no more pain WBC is higer - no fevers or chills. Flow cytometry sent for yesterday Cortez Marvin 06/11/18 14:30
[2018-06-11] MEDS: Pantoprazole 40 mg EC Tab PO SCH (09:35)
[2018-06-11] MEDS: Clotrimazole 1% Cream(30 gm) TOP SCH ×2 (09:36→18:00)
[2018-06-11] MEDS: hydroCHLOROthiazide-Triamterene 25 mg-37.5 mg Cap UD PO SCH (09:36)
[2018-06-11] MEDS: Ammonium Lactate 12% Lotion (225 g) EXT SCH ×2 (09:37→18:00)
[2018-06-11] MEDS: Albumin Human 25% (12.5 gm/50 ml) IV SCH ×3 (13:27→18:00)
[2018-06-11] MEDS: Hydrocortisone 2.5% Rectal Cream(30 gm) PR SCH ×2 (22:09→22:13)
[2018-06-12] MEDS: Petrolatum Oint Foilpak (5 gm) TOP SCH ×4 (00:52→17:27)
[2018-06-12 06:46] LABS: BASO # 0.2 K/uL (0.0-0.2); BASO % 0.8 % (0.0-2.0); EOS # 0.4 K/uL (0.0-0.7); HEMOGLOBIN 9.9 g/dL (12.0-18.0); LYMPH % 61.7 % (20.0-40.0); MEAN CELL VOLUME 83.8 fL (80.0-94.0); MEAN CORPUSCULAR HGB CONC 32.2 g/dL (33.0-37.0); MONO # 0.5 K/uL (0.0-0.8); MONO % 2.6 % (0.0-10.0); NEUT # 6.9 K/uL (1.8-7.0); NEUT % 32.9 % (50.0-75.0); NRBC % 0.1 % (0.0-2.0); RBC 3.66 Mil/uL (4.40-5.90); RED CELL DISTRIBUTION WIDTH 14.5 % (11.5-14.5); WHITE BLOOD COUNT 21.1 K/uL (4.8-10.8)
[2018-06-12 07:00] LABS: ALB/GLOB RATIO 1.2 (1.0-2.1); ALBUMIN 3.4 g/dL (3.5-5.0); ALT/SGPT 18 U/L (21-72); AST/SGOT 34 U/L (17-59); BLOOD UREA NITROGEN 23 mg/dL (9-20); CALCIUM 9.1 mg/dl (8.6-10.4); GFR NON-AFRICAN AMERICAN > 60
--- NOTE | 2018-06-12 08:21 | CP.PCM.PN ---
Subjective - Date & Time of Evaluation Date of Evaluation: 06/12/18 Time of Evaluation: 08:20 - Subjective Subjective: PGY-1 Medicine Progress Note for Dr. Stoner Patient seen and examined at bedside this AM, in no acute distress. No acute overnight events reported. Leg edema improved, continues to have severe dry scaly skin of b/l LE. No acute somatic complaints at this time. Denies fevers/chills, headaches, dizziness, chest pain, palpitations, shortness of breath, cough, abdominal pain, n/v/d/c, dysuria, or changes in stool. Objective - Vital Signs/Intake and Output Vital Signs (last 24 hours): Temp Pulse Resp BP Pulse Ox 98.2 F 95 H 20 130/64 96 06/12/18 07:35 06/12/18 07:35 06/12/18 07:35 06/12/18 07:35 06/12/18 07:35 Intake and Output: 06/12/18 06/12/18 06:59 18:59 Intake Total 400 200 Output Total 800 Balance -400 200 - Medications Medications: Current Medications Clotrimazole (Lotrimin 1%) 0 gm TOP BID [facility] Last Admin: 06/11/18 18:00 Dose: 1 applic Cyanocobalamin (Vitamin B12 1000 Mcg/Ml Inj) 1,000 mcg IM DAILY [facility] Stop: 06/13/18 10:01 Last Admin: 06/11/18 09:35 Dose: 1,000 mcg Diphenhydramine HCl (Benadryl) 50 mg PO Q6 PRN PRN Reason: Itching / Pruritus Docusate Sodium (Colace) 100 mg PO TID [facility] Emollient Ointment (Vaseline Oint) 5 gm TOP Q6 [facility] Last Admin: 06/12/18 06:08 Dose: 5 gm Furosemide (Lasix) 40 mg IVP BID [facility] Last Admin: 06/11/18 18:00 Dose: 40 mg Gabapentin (Neurontin) 300 mg PO BID [facility] Last Admin: 06/11/18 18:00 Dose: 300 mg Heparin Sodium (Porcine) (Heparin) 5,000 units SC Q8 [facility] Last Admin: 06/12/18 06:08 Dose: 5,000 units Hydrocortisone (Anusol-Hc) 1 gm [place] BID [facility] Last Admin: 06/11/18 22:13 Dose: Not Given Lactic Acid (Lac-Hydrin 12% Lotion (225 G)) 0 gm EXT BID [facility] Last Admin: 06/11/18 18:00 Dose: 1 applic Loratadine (Claritin) 10 mg PO DAILY [facility] Last Admin: 06/11/18 09:35 Dose: 10 mg Pantoprazole Sodium (Protonix Ec Tab) 40 mg PO DAILY [facility] Last Admin: 06/11/18 09:35 Dose: 40 mg Potassium Chloride (K-Dur 20 Meq Er Tab) 20 meq PO DAILY [facility] Triamterene/HCTZ (Dyazide 25 Mg-37.5 Mg) 1 cap PO DAILY [facility] Last Admin: 06/11/18 09:36 Dose: 1 cap - Labs Labs: 06/12/18 06:32 06/12/18 06:32 - Constitutional Appears: Non-toxic, No Acute Distress - Head Exam Head Exam: ATRAUMATIC, NORMAL INSPECTION, NORMOCEPHALIC - Eye Exam Eye Exam: EOMI, Normal appearance, PERRL - ENT Exam ENT Exam: Mucous Membranes Moist, Normal Exam - Neck Exam Neck Exam: Full ROM, Normal Inspection - Respiratory Exam Respiratory Exam: Clear to Ausculation Bilateral, NORMAL BREATHING PATTERN. absent: Accessory Muscle Use, Rales, Rhonchi, Wheezes, Respiratory Distress, Stridor - Cardiovascular Exam Cardiovascular Exam: REGULAR RHYTHM, +S1, +S2 - GI/Abdominal Exam GI & Abdominal Exam: Soft, Normal Bowel Sounds. absent: Distended, Firm, Guarding, Rigid, Tenderness, Organomegaly, Rebound - Extremities Exam Extremities Exam: Full ROM, Normal Capillary Refill, Normal Inspection. absent: Calf Tenderness, Joint Swelling, Pedal Edema - Back Exam Back Exam: NORMAL INSPECTION - Neurological Exam Neurological Exam: Alert, Awake, CN II-XII Intact, Oriented x3 - Psychiatric Exam Psychiatric exam: Normal Affect, Normal Mood - Skin Skin Exam: Dry, Intact Additional comments: Dry flaking patches of skin noted, worst in b/l LE. Plantar surface of feet covered is flaking skin. No visible open lesions. Toenails thick and discolored. Assessment and Plan - Assessment and Plan (Free Text) Assessment: 73 yo M with PMHx of HTN and leukemia currently in remission presenting with b/l LE swelling and pain x 2 weeks, very dry and flaking skin. Plan: B/L LE edema--improved - no evidence of cellulitis, afebrile - WBC 21.1 (06/12), continue to monitor - No CHF, echo WNL, EF>50% - B/l LE Doppler: no DVT - B/l foot XR: arthrosis - Gabapentin 300 mg PO BID for pain - Lasix 40 mg IV BID-->d/c'd (06/12) Dry skin - Vaseline ointment 5gm q6H - Lac-Hydrin 12% lotion BID - Benadryl 50 mg PO Q6H PRN - Podiatry recs (Dr. Choi) appreciated - Ammonium lactate - Clotrimazole 1% BID Hypoalbuminemia - 12.5g albumin x3 doses(06/11) - 12.5g albumin x3 doses(06/09) - Ensure supplements BID HTN - Monitor vitals Q4H - Triamterene/HCTZ 25-37.5 mg PO daily APL (currently in remission) - lymphocyte count increasing - f/u blood flow cytometry - Hem/onc recs ([place]aveen) appreciated -B12 supplementation for anemia -WBC rising despite ABx, f/u flow cytometry eval on peripheral blood -APL treated 10 years ago - may follow private Heme/onc doc as outpatient Allergic rhinitis - Claritin 10 mg PO daily PPx, Diet, Disposition: - DVT ppx: heparin 5000 units SC Q8H - GIppx : PTX 40 mg PO daily - Diet: - PT on board -Dispo: Pending f/u PT, [facility] finalization. Likely d/c tomorrow AM. Case discussed with Dr. Georgiana Tabor DO, PGY-1
[2018-06-12] MEDS: hydroCHLOROthiazide-Triamterene 25 mg-37.5 mg Cap UD PO SCH (10:32)
[2018-06-12] MEDS: Pantoprazole 40 mg EC Tab PO SCH (10:32)
[2018-06-12] MEDS: Potassium Chloride 20 mEq ER Tab PO SCH (10:32)
[2018-06-12] MEDS: Hydrocortisone 2.5% Rectal Cream(30 gm) PR SCH ×2 (10:33→17:27)
[2018-06-12] MEDS: Clotrimazole 1% Cream(30 gm) TOP SCH ×2 (10:34→17:32)
[2018-06-12] MEDS: Ammonium Lactate 12% Lotion (225 g) EXT SCH ×2 (10:35→17:31)
--- NOTE | 2018-06-12 21:44 | CP.PCM.PN ---
Subjective - Date & Time of Evaluation Date of Evaluation: 06/11/18 Time of Evaluation: 17:00 - Subjective Subjective: Feeling better Objective - Vital Signs/Intake and Output Vital Signs (last 24 hours): Temp Pulse Resp BP Pulse Ox 97.5 F L 64 20 125/61 99 06/12/18 16:00 06/12/18 16:00 06/12/18 16:00 06/12/18 16:00 06/12/18 16:00 Intake and Output: 06/12/18 06/13/18 18:59 06:59 Intake Total 500 Output Total 1000 Balance -500 - Medications Medications: Current Medications Clotrimazole (Lotrimin 1%) 0 gm TOP BID [facility] Last Admin: 06/12/18 17:32 Dose: 1 applic Cyanocobalamin (Vitamin B12 1000 Mcg/Ml Inj) 1,000 mcg IM DAILY [facility] Stop: 06/13/18 10:01 Last Admin: 06/12/18 11:05 Dose: 1,000 mcg Diphenhydramine HCl (Benadryl) 50 mg PO Q6 PRN PRN Reason: Itching / Pruritus Docusate Sodium (Colace) 100 mg PO TID [facility] Last Admin: 06/12/18 17:28 Dose: 100 mg Emollient Ointment (Vaseline Oint) 5 gm TOP Q6 [facility] Last Admin: 06/12/18 17:27 Dose: 5 gm Gabapentin (Neurontin) 300 mg PO BID [facility] Last Admin: 06/12/18 17:28 Dose: 300 mg Heparin Sodium (Porcine) (Heparin) 5,000 units SC Q8 [facility] Last Admin: 06/12/18 21:22 Dose: 5,000 units Hydrocortisone (Anusol-Hc) 1 gm [place] BID [facility] Last Admin: 06/12/18 17:27 Dose: 1 applic Lactic Acid (Lac-Hydrin 12% Lotion (225 G)) 0 gm EXT BID [facility] Last Admin: 06/12/18 17:31 Dose: 1 applic Loratadine (Claritin) 10 mg PO DAILY [facility] Last Admin: 06/12/18 10:32 Dose: 10 mg Pantoprazole Sodium (Protonix Ec Tab) 40 mg PO DAILY [facility] Last Admin: 06/12/18 10:32 Dose: 40 mg Potassium Chloride (K-Dur 20 Meq Er Tab) 20 meq PO DAILY [facility] Last Admin: 06/12/18 10:32 Dose: 20 meq Triamterene/HCTZ (Dyazide 25 Mg-37.5 Mg) 1 cap PO DAILY [facility] Last Admin: 06/12/18 10:32 Dose: 1 cap - Labs Labs: 06/12/18 06:32 06/12/18 06:32 - Head Exam Head Exam: ATRAUMATIC - Eye Exam Eye Exam: Normal appearance - ENT Exam ENT Exam: Mucous Membranes Dry - Respiratory Exam Respiratory Exam: NORMAL BREATHING PATTERN - Cardiovascular Exam Cardiovascular Exam: +S1, +S2 Assessment and Plan (1) Anemia Assessment & Plan: borderline b12 B12 supplementation Status: Acute (2) Leukocytosis Assessment & Plan: rising, f/u flow cytometery evaluation on peripheral blood Status: Acute (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
--- NOTE | 2018-06-12 21:45 | CP.PCM.PN ---
Subjective - Date & Time of Evaluation Date of Evaluation: 06/12/18 Time of Evaluation: 18:00 - Subjective Subjective: Feeling better Objective - Vital Signs/Intake and Output Vital Signs (last 24 hours): Temp Pulse Resp BP Pulse Ox 97.5 F L 64 20 125/61 99 06/12/18 16:00 06/12/18 16:00 06/12/18 16:00 06/12/18 16:00 06/12/18 16:00 Intake and Output: 06/12/18 06/13/18 18:59 06:59 Intake Total 500 Output Total 1000 Balance -500 - Medications Medications: Current Medications Clotrimazole (Lotrimin 1%) 0 gm TOP BID [facility] Last Admin: 06/12/18 17:32 Dose: 1 applic Cyanocobalamin (Vitamin B12 1000 Mcg/Ml Inj) 1,000 mcg IM DAILY [facility] Stop: 06/13/18 10:01 Last Admin: 06/12/18 11:05 Dose: 1,000 mcg Diphenhydramine HCl (Benadryl) 50 mg PO Q6 PRN PRN Reason: Itching / Pruritus Docusate Sodium (Colace) 100 mg PO TID [facility] Last Admin: 06/12/18 17:28 Dose: 100 mg Emollient Ointment (Vaseline Oint) 5 gm TOP Q6 [facility] Last Admin: 06/12/18 17:27 Dose: 5 gm Gabapentin (Neurontin) 300 mg PO BID [facility] Last Admin: 06/12/18 17:28 Dose: 300 mg Heparin Sodium (Porcine) (Heparin) 5,000 units SC Q8 [facility] Last Admin: 06/12/18 21:22 Dose: 5,000 units Hydrocortisone (Anusol-Hc) 1 gm [place] BID [facility] Last Admin: 06/12/18 17:27 Dose: 1 applic Lactic Acid (Lac-Hydrin 12% Lotion (225 G)) 0 gm EXT BID [facility] Last Admin: 06/12/18 17:31 Dose: 1 applic Loratadine (Claritin) 10 mg PO DAILY [facility] Last Admin: 06/12/18 10:32 Dose: 10 mg Pantoprazole Sodium (Protonix Ec Tab) 40 mg PO DAILY [facility] Last Admin: 06/12/18 10:32 Dose: 40 mg Potassium Chloride (K-Dur 20 Meq Er Tab) 20 meq PO DAILY [facility] Last Admin: 06/12/18 10:32 Dose: 20 meq Triamterene/HCTZ (Dyazide 25 Mg-37.5 Mg) 1 cap PO DAILY [facility] Last Admin: 06/12/18 10:32 Dose: 1 cap - Labs Labs: 06/12/18 06:32 06/12/18 06:32 - Head Exam Head Exam: ATRAUMATIC - Eye Exam Eye Exam: Normal appearance - ENT Exam ENT Exam: Mucous Membranes Dry - Respiratory Exam Respiratory Exam: NORMAL BREATHING PATTERN - Cardiovascular Exam Cardiovascular Exam: +S1, +S2 - GI/Abdominal Exam GI & Abdominal Exam: Normal Bowel Sounds Assessment and Plan (1) Anemia Assessment & Plan: borderline b12 B12 supplementation Status: Acute (2) Leukocytosis Assessment & Plan: rising, s/p flow cytometery evaluation on peripheral blood outpatient f/u Status: Acute (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
[2018-06-13] MEDS: Petrolatum Oint Foilpak (5 gm) TOP SCH ×4 (01:21→17:42)
[2018-06-13 06:58] LABS: BASO # 0.2 K/uL (0.0-0.2); BASO % 0.9 % (0.0-2.0); EOS # 0.4 K/uL (0.0-0.7); LYMPH # 13.1 K/uL (1.0-4.3); LYMPH % 63.7 % (20.0-40.0); MEAN CELL VOLUME 83.3 fL (80.0-94.0); MEAN CORPUSCULAR HEMOGLOBIN 26.8 pg (27.0-31.0); MEAN CORPUSCULAR HGB CONC 32.1 g/dL (33.0-37.0); MEAN PLATELET VOLUME 8.5 fL (7.2-11.7); MONO # 0.6 K/uL (0.0-0.8); MONO % 2.9 % (0.0-10.0); NEUT # 6.3 K/uL (1.8-7.0); NEUT % 30.5 % (50.0-75.0); NRBC % 0.1 % (0.0-2.0); RBC 3.73 Mil/uL (4.40-5.90); RED CELL DISTRIBUTION WIDTH 14.6 % (11.5-14.5); WHITE BLOOD COUNT 20.5 K/uL (4.8-10.8)
[2018-06-13 07:28] LABS: ALB/GLOB RATIO 1.1 (1.0-2.1); ALBUMIN 3.3 g/dL (3.5-5.0); ALT/SGPT 22 U/L (21-72); AST/SGOT 37 U/L (17-59); BLOOD UREA NITROGEN 27 mg/dL (9-20); CALCIUM 9.2 mg/dl (8.6-10.4); GFR NON-AFRICAN AMERICAN > 60
--- NOTE | 2018-06-13 07:53 | CP.PCM.DIS ---
<Stoney Tabor - Last Filed: 06/13/18 13:34> Provider - Provider Date of Admission: 06/07/18 14:23 Attending physician: Xu Stoner MD Consults: 06/07/18 15:51 Hematology Oncology Consult Routine Comment: Consulting Provider: James Hodge Consulting Physician: James Hodge Reason for Consult: hx of prolymphocytic leukemia 06/08/18 11:27 Podiatry Consult Routine Comment: Consulting Provider: Abhijeet Choi Consulting Physician: Abhijeet Choi Reason for Consult: dry cracked feet Time Spent in preparation of Discharge (in minutes): 40 Hospital Course - Lab Results Lab Results: Micro Results 06/07/18 15:19 Blood-Venous Blood Culture - Final NO GROWTH AFTER 5 DAYS 06/07/18 15:19 Blood-Venous Gram Stain - Final TEST NOT PERFORMED 06/07/18 15:14 Blood-Venous Blood Culture - Final NO GROWTH AFTER 5 DAYS 06/07/18 15:14 Blood-Venous Gram Stain - Final TEST NOT PERFORMED Most Recent Lab Values WBC 20.5 K/uL (4.8-10.8) H 06/13/18 06:48 RBC 3.73 Mil/uL (4.40-5.90) L 06/13/18 06:48 Hgb 10.0 g/dL (12.0-18.0) L 06/13/18 06:48 Hct 31.1 % (35.0-51.0) L 06/13/18 06:48 MCV 83.3 fL (80.0-94.0) 06/13/18 06:48 MCH 26.8 pg (27.0-31.0) L 06/13/18 06:48 MCHC 32.1 g/dL (33.0-37.0) L 06/13/18 06:48 RDW 14.6 % (11.5-14.5) H 06/13/18 06:48 Plt Count 370 K/uL (130-400) 06/13/18 06:48 MPV 8.5 fL (7.2-11.7) 06/13/18 06:48 Neut % (Auto) 30.5 % (50.0-75.0) L 06/13/18 06:48 Lymph % (Auto) 63.7 % (20.0-40.0) H 06/13/18 06:48 [place] % (Auto) 2.9 % (0.0-10.0) 06/13/18 06:48 Eos % (Auto) 2.0 % (0.0-4.0) 06/13/18 06:48 Baso % (Auto) 0.9 % (0.0-2.0) 06/13/18 06:48 Neut # (Auto) 6.3 K/uL (1.8-7.0) 06/13/18 06:48 Lymph # (Auto) 13.1 K/uL (1.0-4.3) H 06/13/18 06:48 [place] # (Auto) 0.6 K/uL (0.0-0.8) 06/13/18 06:48 Eos # (Auto) 0.4 K/uL (0.0-0.7) 06/13/18 06:48 Baso # (Auto) 0.2 K/uL (0.0-0.2) 06/13/18 06:48 Retic Count 1.3 % (0.5-1.5) 06/09/18 07:09 Sodium 134 mmol/L (132-148) 06/13/18 06:48 Potassium 3.4 mmol/L (3.6-5.2) L 06/13/18 06:48 Chloride 90 mmol/L (98-107) L 06/13/18 06:48 Carbon Dioxide 37 mmol/L (22-30) H 06/13/18 06:48 Anion Gap 11 (10-20) 06/13/18 06:48 BUN 27 mg/dL (9-20) H 06/13/18 06:48 Creatinine 1.1 mg/dL (0.8-1.5) 06/13/18 06:48 Est GFR ( Amer) > 60 06/13/18 06:48 Est GFR (Non-Af Amer) > 60 06/13/18 06:48 Random Glucose 93 mg/dL (75-110) 06/13/18 06:48 Calcium 9.2 mg/dl (8.6-10.4) 06/13/18 06:48 Phosphorus 3.1 mg/dL (2.5-4.5) 06/13/18 06:48 Magnesium 2.3 mg/dL (1.6-2.3) 06/13/18 06:48 Ferritin 79.3 ng/mL 06/09/18 07:09 Total Bilirubin 0.6 mg/dL (0.2-1.3) 06/13/18 06:48 AST 37 U/L (17-59) 06/13/18 06:48 ALT 22 U/L (21-72) 06/13/18 06:48 Alkaline Phosphatase 67 U/L (38-126) 06/13/18 06:48 NT-Pro-B Natriuret Pep 538 pg/mL (0-900) 06/07/18 12:08 Total Protein 6.4 g/dL (6.3-8.3) 06/13/18 06:48 Albumin 3.3 g/dL (3.5-5.0) L 06/13/18 06:48 Globulin 3.1 gm/dL (2.2-3.9) 06/13/18 06:48 Albumin/Globulin Ratio 1.1 (1.0-2.1) 06/13/18 06:48 Vitamin B12 247 pg/mL (239-931) 06/09/18 07:09 Folate 9.0 ng/mL 06/09/18 07:09 - Hospital Course Hospital Course: HPI: Patient is a 76 year old male with past medical history of hypertension and leukemia who presents to emergency department for evaluation of bilateral leg swelling and pain. Patient states the leg swelling and pain has been ongoing for two weeks, crampy in nature, non-radiating, 6-7/10 on pain scale. Patient states that he went to see his primary medical doctor for this situation and he was prescribed gabapentin and prednisone. However, the pain persisted and leg swelling was still present which prompted patient to come to hospital. Patient has had a similar episode in the past about 4 months ago for which he received antibiotics and the problem was resolved. Patient states he gets short of breath with minimal exertion. Patient states it is painful when he ambulates. Patient had an appointment with his oncologist about 2 months prior but was not able to make the appointment and his oncologist is traveling for holiday vacation. Patient denies fevers, chills, chest pain, shortness of breath, nausea/vomiting/constipation, diarrhea, and dysuria. Patient admits to leg swelling, dry skin, itchiness at times, and pain but not currently dyspneic on exertion. During the course of admission: Patient was given a dose of Vancomycin while in the ED, as there was concern for cellulitis. Dopplers of the lower extremities were ordered, which were negative for deep venous thrombosis. Per family, patient had to move into their home as he was not eating adequately on his own or taking care of himself. It is possible the swelling was due to low protein from malnutrition and low albumin. IV albumin was given in addition to Lasix for diuresis. Echocardiogram performed demonstrated no congestive heart failure, ejection fraction reported > 50%. Bilateral foot X-ray demonstrated no acute findings. Podiatry (Dr. Choi) was consulted for severe eczema and dry skin with fissures. Ammonium lactate and clotrimazole were added, per recs, in addition to vaseline ointment and lac-hydrin lotion. Patient states he has had eczema for years; however, it has worsened within the past few weeks. Patient stated he was evaluated by a private web developer in the past, with skin biopsies performed twice. Heme/Onc (Dr. 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 Flow cytometry was obtained and patient was instructed to follow up outpatient with his private oncologist for cytometry report as well as continued monitoring. Patient remained afebrile during hospital course with improvement of leg swelling and no acute somatic complaints. Labs remained stable. Patient is medically stable for discharge to subacute rehab, per Dr. Stoner. Patient to resume all medications as prescribed. Patient states that he has had eczema for years, has had follow up with his private web developer. Skin biopsies were performed in the past. He reiterates that the scaling has worsened in recent weeks. 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 Patient will stop HCTZ and take amlodipine for blood pressure control as currently prescribed. Patient instructed to continue taking topical creams as given by podiatry, follow up with his own web developer if symptoms worsen or persist. Patient also instructed to follow up outpatient with his private oncologist, per Dr. Hodge, for continued monitoring of leukemia and follow-up for flow cytometry report. The following is a summary of hospital course. For full detail, please refer to EMR. - Date & Time of H&P Date of H&P: 06/13/18 Time of H&P: 10:37 Discharge Exam - Head Exam Head Exam: ATRAUMATIC, NORMAL INSPECTION, NORMOCEPHALIC - Eye Exam Eye Exam: EOMI, Normal appearance, PERRL - ENT Exam ENT Exam: Mucous Membranes Moist, Normal Exam - Neck Exam Neck exam: Full Rom, Normal Inspection - Respiratory Exam Respiratory Exam: Clear to PA & Lateral, NORMAL BREATHING PATTERN, UNREMARKABLE. absent: Accessory Muscle Use, Rales, Rhonchi, Wheezes, Respiratory Distress, Stridor - Cardiovascular Exam Cardiovascular Exam: REGULAR RHYTHM, +S1, +S2 - GI/Abdominal Exam GI & Abdominal Exam: Normal Bowel Sounds, Soft, Unremarkable. absent: Distended, Firm, Guarding, Rebound, Rigid, Tenderness - Extremities Exam Extremities exam: normal capillary refill, normal inspection, pedal pulses present - Neurological Exam Neurological exam: Alert, Oriented x3 - Psychiatric Exam Psychiatric exam: Normal Affect, Normal Mood - Skin Additional comments: severe xerosis and scaling with fissuring through feet/hands b/l. Discharge Plan - Follow Up Plan Condition: GUARDED Disposition: REHAB FACILITY/REHAB UNIT Instructions: Cellulitis (Skin Infection), Adult (DC), Normocytic Normochromic Anemia (DC), Leukocytosis (DC) Additional Instructions: Patient is medically stable for discharge to subacute rehab, per Dr. Stoenr. Patient to resume all medications as prescribed. Patient states that he has had eczema for years, has had follow up with his private web developer. Skin biopsies were performed in the past. He reiterates that the scaling has worsened in recent weeks. 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 Patient will stop HCTZ and take amlodipine for blood pressure control as currently prescribed. Patient instructed to continue taking topical creams as given by podiatry, follow up with his own derm atologist if symptoms worsen or persist. Patient also instructed to follow up outpatient with his private oncologist, per Dr. Hodge, for continued monitoring of leukemia and follow-up for flow cytometry report. Referrals: Gerard Post MD [Staff Provider] - <Xu Stoner - Last Filed: 06/13/18 14:11> Provider - Provider Date of Admission: 06/07/18 14:23 Attending physician: Xu Stoner MD Consults: 06/07/18 15:51 Hematology Oncology Consult Routine Comment: Consulting Provider: James Hodge Consulting Physician: James Hodge Reason for Consult: hx of prolymphocytic leukemia 06/08/18 11:27 Podiatry Consult Routine Comment: Consulting Provider: Abhijeet Choi Consulting Physician: Abhijeet Choi Reason for Consult: dry cracked feet Hospital Course - Lab Results Lab Results: Micro Results 06/07/18 15:19 Blood-Venous Blood Culture - Final NO GROWTH AFTER 5 DAYS 06/07/18 15:19 Blood-Venous Gram Stain - Final TEST NOT PERFORMED 06/07/18 15:14 Blood-Venous Blood Culture - Final NO GROWTH AFTER 5 DAYS 06/07/18 15:14 Blood-Venous Gram Stain - Final TEST NOT PERFORMED Most Recent Lab Values WBC 20.5 K/uL (4.8-10.8) H 06/13/18 06:48 RBC 3.73 Mil/uL (4.40-5.90) L 06/13/18 06:48 Hgb 10.0 g/dL (12.0-18.0) L 06/13/18 06:48 Hct 31.1 % (35.0-51.0) L 06/13/18 06:48 MCV 83.3 fL (80.0-94.0) 06/13/18 06:48 MCH 26.8 pg (27.0-31.0) L 06/13/18 06:48 MCHC 32.1 g/dL (33.0-37.0) L 06/13/18 06:48 RDW 14.6 % (11.5-14.5) H 06/13/18 06:48 Plt Count 370 K/uL (130-400) 06/13/18 06:48 MPV 8.5 fL (7.2-11.7) 06/13/18 06:48 Neut % (Auto) 30.5 % (50.0-75.0) L 06/13/18 06:48 Lymph % (Auto) 63.7 % (20.0-40.0) H 06/13/18 06:48 [place] % (Auto) 2.9 % (0.0-10.0) 06/13/18 06:48 Eos % (Auto) 2.0 % (0.0-4.0) 06/13/18 06:48 Baso % (Auto) 0.9 % (0.0-2.0) 06/13/18 06:48 Neut # (Auto) 6.3 K/uL (1.8-7.0) 06/13/18 06:48 Lymph # (Auto) 13.1 K/uL (1.0-4.3) H 06/13/18 06:48 [place] # (Auto) 0.6 K/uL (0.0-0.8) 06/13/18 06:48 Eos # (Auto) 0.4 K/uL (0.0-0.7) 06/13/18 06:48 Baso # (Auto) 0.2 K/uL (0.0-0.2) 06/13/18 06:48 Retic Count 1.3 % (0.5-1.5) 06/09/18 07:09 Sodium 134 mmol/L (132-148) 06/13/18 06:48 Potassium 3.4 mmol/L (3.6-5.2) L 06/13/18 06:48 Chloride 90 mmol/L (98-107) L 06/13/18 06:48 Carbon Dioxide 37 mmol/L (22-30) H 06/13/18 06:48 Anion Gap 11 (10-20) 06/13/18 06:48 BUN 27 mg/dL (9-20) H 06/13/18 06:48 Creatinine 1.1 mg/dL (0.8-1.5) 06/13/18 06:48 Est GFR ( Amer) > 60 06/13/18 06:48 Est GFR (Non-Af Amer) > 60 06/13/18 06:48 Random Glucose 93 mg/dL (75-110) 06/13/18 06:48 Calcium 9.2 mg/dl (8.6-10.4) 06/13/18 06:48 Phosphorus 3.1 mg/dL (2.5-4.5) 06/13/18 06:48 Magnesium 2.3 mg/dL (1.6-2.3) 06/13/18 06:48 Ferritin 79.3 ng/mL 06/09/18 07:09 Total Bilirubin 0.6 mg/dL (0.2-1.3) 06/13/18 06:48 AST 37 U/L (17-59) 06/13/18 06:48 ALT 22 U/L (21-72) 06/13/18 06:48 Alkaline Phosphatase 67 U/L (38-126) 06/13/18 06:48 NT-Pro-B Natriuret Pep 538 pg/mL (0-900) 06/07/18 12:08 Total Protein 6.4 g/dL (6.3-8.3) 06/13/18 06:48 Albumin 3.3 g/dL (3.5-5.0) L 06/13/18 06:48 Globulin 3.1 gm/dL (2.2-3.9) 06/13/18 06:48 Albumin/Globulin Ratio 1.1 (1.0-2.1) 06/13/18 06:48 Vitamin B12 247 pg/mL (239-931) 06/09/18 07:09 Folate 9.0 ng/mL 06/09/18 07:09 Attending/Attestation - Attestation I have personally seen and examined this patient.: Yes I have fully participated in the care of the patient.: Yes I have reviewed all pertinent clinical information, including history, physical exam and plan: Yes Notes (Text): seen and examined this morning. Patient has chronic severe eczema/Exfoliating dermatitis. He was following his web developer for years and had skin biopsy in the past. patient was using topical treatment. He also has history of leukemia and was treated 10years ago. He was asked to see his oncologist and follow flow cytometry. He is on HCTZ for long time. we will recommend to stop it and start on amlodipine. Monitor BP at rehab
[2018-06-13 08:41] VITALS: TEMP 98.1
[2018-06-13] MEDS: Potassium Chloride 20 mEq ER Tab PO SCH (10:07)
[2018-06-13] MEDS: hydroCHLOROthiazide-Triamterene 25 mg-37.5 mg Cap UD PO SCH (10:07)
[2018-06-13] MEDS: Pantoprazole 40 mg EC Tab PO SCH (10:07)
[2018-06-13] MEDS: Ammonium Lactate 12% Lotion (225 g) EXT SCH ×2 (10:08→17:41)
[2018-06-13] MEDS: Hydrocortisone 2.5% Rectal Cream(30 gm) PR SCH ×2 (10:08→17:47)
[2018-06-13] MEDS: Clotrimazole 1% Cream(30 gm) TOP SCH ×2 (10:09→17:45)
[2018-06-13] MEDS ORDERED: Potassium Chloride 20 mEq ER Tab PO SCH (10:45)
--- NOTE | 2018-06-13 15:29 | CP.PCM.PN ---
Subjective - Date & Time of Evaluation Date of Evaluation: 06/13/18 Time of Evaluation: 15:29 - Subjective Subjective: Podiatry - Dr. Choi 73M seen and evaluated this AM for painful fissures b/l feet. Patient asleep on rounds, NAD. No acute events overnight. Scaling and pain in feet improving. No new lower extremity complaints. Denies n/v/f/d/c/sob. Objective - Vital Signs/Intake and Output Vital Signs (last 24 hours): Temp Pulse Resp BP Pulse Ox 98.1 F 81 20 122/60 96 06/13/18 08:39 06/13/18 08:39 06/13/18 08:39 06/13/18 08:39 06/13/18 08:39 Intake and Output: 06/13/18 06/13/18 06:59 18:59 Intake Total 350 180 Output Total 300 Balance 50 180 - Medications Medications: Current Medications Amlodipine Besylate (Norvasc) 5 mg PO DAILY [facility] Last Admin: 06/13/18 11:36 Dose: 5 mg Clotrimazole (Lotrimin 1%) 0 gm TOP BID [facility] Last Admin: 06/13/18 10:09 Dose: 1 applic Diphenhydramine HCl (Benadryl) 50 mg PO Q6 PRN PRN Reason: Itching / Pruritus Docusate Sodium (Colace) 100 mg PO TID [facility] Last Admin: 06/13/18 14:13 Dose: 100 mg Emollient Ointment (Vaseline Oint) 5 gm TOP Q6 [facility] Last Admin: 06/13/18 11:47 Dose: 5 gm Gabapentin (Neurontin) 300 mg PO BID [facility] Last Admin: 06/13/18 10:09 Dose: 300 mg Heparin Sodium (Porcine) (Heparin) 5,000 units SC Q8 [facility] Last Admin: 06/13/18 14:13 Dose: 5,000 units Hydrocortisone (Anusol-Hc) 1 gm [place] BID [facility] Last Admin: 06/13/18 10:08 Dose: 1 applic Lactic Acid (Lac-Hydrin 12% Lotion (225 G)) 0 gm EXT BID [facility] Last Admin: 06/13/18 10:08 Dose: 1 applic Loratadine (Claritin) 10 mg PO DAILY [facility] Last Admin: 06/13/18 10:07 Dose: 10 mg Pantoprazole Sodium (Protonix Ec Tab) 40 mg PO DAILY [facility] Last Admin: 06/13/18 10:07 Dose: 40 mg Potassium Chloride (K-Dur 20 Meq Er Tab) 20 meq PO DAILY [facility] Last Admin: 06/13/18 10:07 Dose: 20 meq Potassium Chloride (K-Dur 20 Meq Er Tab) 20 meq PO DAILY [facility] Last Admin: 06/13/18 11:36 Dose: 20 meq - Labs Labs: 06/13/18 06:48 06/13/18 06:48 - Constitutional Appears: Well, Non-toxic, No Acute Distress - Extremities Exam Additional comments: B/L LE focused exam: VASC: DP/PT pulses palpable 2/4 b/l. Cap refill <3 seconds to all digits. Temp gradient warm to warm. Moderate non-pitting edema b/l. NEURO: Gross sensation intact b/l. DERM: Severe xerosis + scaling present with fissuring throughout plantar aspect of foot b/l, improving - no drainage, purulence. Erythema noted to bilateral LE. MSK: Pain on palpation to fissures. ROM limited due edema. - Neurological Exam Neurological Exam: Alert, Awake, Oriented x3 - Psychiatric Exam Psychiatric exam: Normal Affect, Normal Mood Assessment and Plan - Assessment and Plan (Free Text) Assessment: 73M with painful fissures b/l feet, improving Plan: Patient seen and evaluated with attending, Dr. Chio Afebrile, WBC 20.5 LE duplex: (-) DVT, valvular incompetence R popliteal v. Bilateral foot XR: (-) fracture, vascular calcifications Continue Clotrimazole + Ammonium lactate b/l Patient to follow up with Dr. Choi in office within 1 week of discharge Podiatry will continue to follow
[2018-06-13 16:34] VITALS: BP 138/62; PULSE 64; O2SAT 97
--- NOTE | 2018-06-13 20:01 | CP.PCM.PN ---
Subjective - Date & Time of Evaluation Date of Evaluation: 06/13/18 Time of Evaluation: 12:00 - Subjective Subjective: No complaints. Objective - Vital Signs/Intake and Output Vital Signs (last 24 hours): Temp Pulse Resp BP Pulse Ox 98.1 F 64 20 138/62 97 06/13/18 16:00 06/13/18 16:00 06/13/18 16:00 06/13/18 16:00 06/13/18 16:00 Intake and Output: 06/13/18 06/14/18 18:59 06:59 Intake Total 180 Balance 180 - Labs Labs: 06/13/18 06:48 06/13/18 06:48 - Head Exam Head Exam: ATRAUMATIC - Eye Exam Eye Exam: Normal appearance - ENT Exam ENT Exam: Mucous Membranes Dry - Respiratory Exam Respiratory Exam: NORMAL BREATHING PATTERN - Cardiovascular Exam Cardiovascular Exam: +S1, +S2 - GI/Abdominal Exam GI & Abdominal Exam: Normal Bowel Sounds Assessment and Plan (1) Anemia Assessment & Plan: borderline b12 B12 supplementation Status: Acute (2) Leukocytosis Assessment & Plan: rising, s/p flow cytometery evaluation on peripheral blood outpatient f/u Status: Acute (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
== END 2018-06-13 19:38 | DRG 603 ==
LOC: C.ER 11:12 → C.3T 14:23
PROVIDERS: ADMIT Internal Medicine; ATTEND Internal Medicine
DX: L03.116 Cellulitis of left lower limb (principal); L03.115 Cellulitis of right lower limb; E46 Unspecified protein-calorie malnutrition; C92.40 Acute promyelocytic leukemia, not having achieved remission; I10 Essential (primary) hypertension; L30.9 Dermatitis, unspecified; D64.9 Anemia, unspecified; K21.9 Gastro-esophageal reflux disease without esophagitis; E78.00 Pure hypercholesterolemia, unspecified; Z68.22 Body mass index [BMI] 22.0-22.9, adult; Z86.010 Personal history of colon polyps; Z92.21 Personal history of antineoplastic chemotherapy

== ENCOUNTER 2018-06-21 10:04 | Inpatient (IN) | payer MEDICARE ==
[2018-06-21 10:04] VITALS: BMI 24.8
[2018-06-21] MEDS ORDERED: Albuterol-Ipratrop 3 mg / 0.5 (3 ml) UD ONE (10:24)
--- NOTE | 2018-06-21 10:40 | C.PDOC ---
History Of Present Illness 73 year old male with a history of leukemia presents to the emergency department from [facility] with complaints of vomiting since this morning. Patient also reports shortness of breath. Patient's daughter reports that he was discharged from last week after being treated for cellulitis. He denies chest pain or abdominal pain. Time Seen by Provider: 06/21/18 10:18 Chief Complaint (Nursing): GI Problem History Per: Patient, Family (daughter) Onset/Duration Of Symptoms: Hrs Past Medical History Reviewed: Historical Data, Nursing Documentation, Vital Signs Vital Signs: Last Vital Signs Temp 97.6 F 06/21/18 10:11 Pulse 119 H 06/21/18 10:11 Resp 22 06/21/18 10:11 BP 111/75 06/21/18 10:11 Pulse Ox 91 L 06/21/18 10:11 - Medical History PMH: Colonic Polyps (LARGE POLYPS WITH SURGEY TO REMOVE), HTN, Hypercholesterolemia Denies: Fractures, TIA Surgical History: Endoscopy Family History: States: No Known Family Hx - Social History Hx Alcohol Use: No Hx Substance Use: No - Immunization History Hx Tetanus Toxoid Vaccination: Yes Hx Influenza Vaccination: Yes Hx Pneumococcal Vaccination: Yes Review Of Systems Except As Marked, All Systems Reviewed And Found Negative. Respiratory: Positive for: Shortness of Breath Gastrointestinal: Positive for: Vomiting Physical Exam - Physical Exam Appears: Non-toxic, No Acute Distress Skin: Warm, Dry, Other (sloughing and erythema of the skin throughout the whole body ) Head: Atraumatic, Normacephalic Eye(s): bilateral: Normal Inspection, PERRL, EOMI Nose: Normal Oral Mucosa: Moist Neck: Normal, Supple Chest: Symmetrical, No Tenderness Cardiovascular: Rhythm Regular, No Murmur Respiratory: Wheezing (expiratory wheeze) Gastrointestinal/Abdominal: Soft, No Tenderness, No Guarding, No Rebound Extremity: Pedal Edema (+2 pitting edema of the bilateral lower extremities) Extremity: Bilateral: Atraumatic Neurological/Psych: Oriented x3, Normal Speech ED Course And Treatment - Laboratory Results Result Diagrams: 06/23/18 06:10 06/23/18 06:10 ECG: Interpreted By Me, Viewed By Me Interpretation Of ECG: Sinus tachycardia at 116 bpm, normal intervals, normal axis, positive artifact, no gross ST-T wave abnormalities. O2 Sat by Pulse Oximetry: 91 (10:47 increased to 93, RA) Pulse Ox Interpretation: Abnormal - Other Rad CXR X-Ray: Viewed By Me, Read By Radiologist Interpretation: IMPRESSION: New left perihilar opacity. Possible pneumonia. Follow-up advised Medical Decision Making Medical Decision Making: Plan: ABG ELG Chemistry Bloodwork CXR Zofran 4mg IVP Blood Culture Urine Culture Urinalysis Assessment: Shortness of breath, vomiting, rash 12:[address] Booth from ICU, will come down to evaluate the patient. 12:35 Dr. Booth is present in ICU, evaluating the patient. 13:05 Hospitalist refuses admission, states that we do not cover for Dr. Baldwin. critical care time - 60 minutes Disposition Discussed With : Brad Mirza Doctor Will See Patient In The: Hospital Counseled Patient/Family Regarding: Studies Performed, Diagnosis - Disposition Disposition: HOSPITALIZED Disposition Time: 13:07 Condition: FAIR - Clinical Impression Clinical Impression: Gastrointestinal hemorrhage, Pneumonia - Scribe Statement The provider has reviewed the documentation as recorded by the Scribe (Pascual Valdez) Provider Attestation: All medical record entries made by the Scribe were at my direction and personally dictated by me. I have reviewed the chart and agree that the record accurately reflects my personal performance of the history, physical exam, medical decision making, and the department course for this patient. I have also personally directed, reviewed, and agree with the discharge instructions and disposition.
[2018-06-21] MEDS ORDERED: Albuterol-Ipratrop 3 mg / 0.5 (3 ml) UD INH STA ×3 (10:48→10:50)
[2018-06-21 10:54] LABS: ARTERIAL BLOOD GAS HCO3 24.9 mmol/L (21-28); ARTERIAL BLOOD GAS HEMOGLOBIN 11.1 g/dL (11.7-17.4); ARTERIAL BLOOD GAS O2 SAT 96.4 % (95-98); ARTERIAL BLOOD GAS PCO2 33 mm/Hg (35-45); ARTERIAL BLOOD GAS PH 7.46 (7.35-7.45); ARTERIAL BLOOD GAS PO2 71 mm/Hg (80-100); ARTERIAL BLOOD GAS TCO2 24.5 mmol/L (22-28)
[2018-06-21 11:02] LABS: BASO # 0.3 K/uL (0.0-0.2); BASO % 1.4 % (0.0-2.0); HEMOGLOBIN 10.9 g/dL (12.0-18.0); LYMPH # 9.9 K/uL (1.0-4.3); LYMPH % 51.6 % (20.0-40.0); MEAN CELL VOLUME 83.4 fL (80.0-94.0); MEAN CORPUSCULAR HEMOGLOBIN 27.1 pg (27.0-31.0); MEAN CORPUSCULAR HGB CONC 32.4 g/dL (33.0-37.0); MEAN PLATELET VOLUME 9.4 fL (7.2-11.7); MONO # 0.5 K/uL (0.0-0.8); MONO % 2.7 % (0.0-10.0); NEUT # 8.5 K/uL (1.8-7.0); NEUT % 44.3 % (50.0-75.0); RBC 4.02 Mil/uL (4.40-5.90); WHITE BLOOD COUNT 19.2 K/uL (4.8-10.8)
[2018-06-21 11:08] LABS: PLATELET COUNT 501 K/uL (130-400)
[2018-06-21 11:10] LABS: INR 1.2; PROTHROMBIN TIME 13.5 SECONDS (9.7-12.2)
[2018-06-21 11:32] LABS: ALBUMIN 3.5 g/dL (3.5-5.0); ALT/SGPT 25 U/L (21-72); AST/SGOT 58 U/L (17-59); B-TYPE NATRIURETIC PEPTIDE 1390 pg/mL (0-900); BLOOD UREA NITROGEN 35 mg/dL (9-20); CALCIUM 9.9 mg/dl (8.6-10.4); GFR NON-AFRICAN AMERICAN 54; LIPASE 126 U/L (23-300)
[2018-06-21] MEDS ORDERED: Cefepime 1 GM in Sodium Chloride 0.9% 50 ML IVPB ONE (11:37)
[2018-06-21] MEDS ORDERED: Vancomycin 1 GM 1 GM/250 ML BAG IVPB ONE (11:45)
--- NOTE | 2018-06-21 11:53 | RAD ---
Date of service: 06/21/2018 PROCEDURE: CHEST RADIOGRAPH, 1 VIEW HISTORY: SOB COMPARISON: 06/07/2018 FINDINGS: LUNGS: Left perihilar opacity concerning for pneumonia. No other abnormal opacity. PLEURA: No pneumothorax or pleural fluid seen. CARDIOVASCULAR: No aortic atherosclerotic calcification present. Normal. OSSEOUS STRUCTURES: No significant abnormalities. VISUALIZED UPPER ABDOMEN: Normal. OTHER FINDINGS: None. IMPRESSION: New left perihilar opacity. Possible pneumonia. Follow-up advised
[2018-06-21 12:05] LABS: TOTAL CELLS COUNTED 100
[2018-06-21 12:07] LABS: BANDS 19 % (0-2); LYMPHOCYTE 52 % (20-40); NEUTROPHIL 21 % (50-75); REACTIVE LYMPHOCYTES 3 % (0-0)
[2018-06-21 12:08] LABS: BASOPHIL 1 % (0-2); MONOCYTE 4 % (0-10); PLATELET ESTIMATE INCREASED (NORMAL)
[2018-06-21 12:09] LABS: ANISOCYTOSIS SLIGHT; BURR CELLS SLIGHT; OVALOCYTES SLIGHT; POIKILOCYTOSIS SLIGHT; TARGET CELLS SLIGHT
[2018-06-21 12:28] LABS: ABG ALLEN TEST POS; ARTERIAL BLOOD GAS HCO3 25.9 mmol/L (21-28); ARTERIAL BLOOD GAS O2 SAT 99.5 % (95-98); ARTERIAL BLOOD GAS PCO2 22 mm/Hg (35-45); ARTERIAL BLOOD GAS PH 7.59 (7.35-7.45); ARTERIAL BLOOD GAS PO2 176 mm/Hg (80-100); ARTERIAL BLOOD GAS TCO2 21.8 mmol/L (22-28)
--- NOTE | 2018-06-21 13:06 | CP.PCM.HP ---
History of Present Illness - History of Present Illness History of Present Illness: PGY-1 Critical Care History and Physical for Dr. Booth's service Past Patient History - Past Medical History & Family History Past Medical History?: Yes - Past Social History Smoking Status: Never Smoked - CARDIAC Hx Hypercholesterolemia: Yes Hx Hypertension: Yes - NEUROLOGICAL Hx Transient Ischemic Attacks (TIA): No - HEENT Hx Cataracts: Yes (rehan) - HEMATOLOGICAL/ONCOLOGICAL Hx Blood Disorders: Yes Hx Leukemia: Yes (IN REMISSION) - INTEGUMENTARY Hx Dermatological Problems: Yes Hx Eczema: Yes (ALL OVER BODY) - MUSCULOSKELETAL/RHEUMATOLOGICAL Hx Fractures: No - GASTROINTESTINAL Hx Gastrointestinal Disorders: Yes Hx Bowel Surgery: Yes (2X RESECTION OF 2 LARGE, BENIGN POLYPS) - PSYCHIATRIC Hx Substance Use: No - SURGICAL HISTORY Hx Surgeries: Yes Hx Herniorrhaphy: Yes (RIGHT GROIN) - ANESTHESIA Hx Anesthesia: Yes Hx Anesthesia Reactions: No Hx Malignant Hyperthermia: No Meds Allergies/Adverse Reactions: Allergies Allergy/AdvReac Type Severity Reaction Status Date / Time No Known Allergies Allergy Verified 02/14/17 07:07 Results - Vital Signs Recent Vital Signs: Last Vital Signs Temp 97.4 F L 06/21/18 11:48 Pulse 113 H 06/21/18 11:48 Resp 23 06/21/18 11:48 BP 100/54 L 06/21/18 11:48 Pulse Ox 91 L 06/21/18 12:24 - Labs Result Diagrams: 06/21/18 10:43 06/21/18 10:43 Labs: Laboratory Results - last 24 hr 06/21/18 06/21/18 06/21/18 10:43 10:43 10:43 WBC 19.2 H RBC 4.02 L Hgb 10.9 L Hct 33.5 L MCV 83.4 MCH 27.1 MCHC 32.4 L RDW 15.0 H Plt Count 501 H D MPV 9.4 Neut % (Auto) 44.3 L Lymph % (Auto) 51.6 H [place] % (Auto) 2.7 Eos % (Auto) 0.0 Baso % (Auto) 1.4 Neut # (Auto) 8.5 H Lymph # (Auto) 9.9 H [place] # (Auto) 0.5 Eos # (Auto) 0.0 Baso # (Auto) 0.3 H Neutrophils % (Manual) 21 L Band Neutrophils % 19 H* Lymphocytes % (Manual) 52 H Reactive Lymphs % 3 H Monocytes % (Manual) 4 Basophils % (Manual) 1 Platelet Estimate Increased H Poikilocytosis (manual Slight Anisocytosis (manual) Slight Target Cells Slight Ovalocytes Slight [place] Cells Slight PT 13.5 H INR 1.2 APTT 29 Puncture Site pCO2 pO2 HCO3 ABG pH ABG Total CO2 ABG O2 Saturation ABG Base Excess ABG Hemoglobin ABG Carboxyhemoglobin POC ABG HHb (Measured) ABG Methemoglobin [place] Test ABG Potassium Hgb O2 Saturation Glucose Lactate Liter Flow FiO2 Sodium 133 Potassium 4.8 Chloride 96 L Carbon Dioxide 24 Anion Gap 17 BUN 35 H Creatinine 1.3 Est GFR ( Amer) > 60 Est GFR (Non-Af Amer) 54 Random Glucose 82 Calcium 9.9 Magnesium 1.8 Total Bilirubin 1.1 AST 58 ALT 25 Alkaline Phosphatase 93 Troponin I 0.0580 NT-Pro-B Natriuret Pep 1390 H Total Protein 6.8 Albumin 3.5 Globulin 3.4 Albumin/Globulin Ratio 1.0 Lipase 126 TSH 3rd Generation 3.09 Arterial Blood Potassium 06/21/18 06/21/18 10:50 12:20 WBC RBC Hgb Hct MCV MCH MCHC RDW Plt Count MPV Neut % (Auto) Lymph % (Auto) [place] % (Auto) Eos % (Auto) Baso % (Auto) Neut # (Auto) Lymph # (Auto) [place] # (Auto) Eos # (Auto) Baso # (Auto) Neutrophils % (Manual) Band Neutrophils % Lymphocytes % (Manual) Reactive Lymphs % Monocytes % (Manual) Basophils % (Manual) Platelet Estimate Poikilocytosis (manual Anisocytosis (manual) Target Cells Ovalocytes [place] Cells PT INR APTT Puncture Site Vbg Lr pCO2 33 L 22 L pO2 71 L 176 H HCO3 24.9 25.9 ABG pH 7.46 H 7.59 H ABG Total CO2 24.5 21.8 L ABG O2 Saturation 96.4 99.5 H ABG Base Excess 0.1 1.2 ABG Hemoglobin 11.1 L ABG Carboxyhemoglobin 2.4 H POC ABG HHb (Measured) 3.5 ABG Methemoglobin 1.0 [place] Test Na Pos ABG Potassium 4.0 Hgb O2 Saturation 93.0 L Glucose 88 Lactate 3.8 H Liter Flow 3.0 FiO2 21.0 Sodium 138.0 Potassium Chloride 107.0 Carbon Dioxide Anion Gap BUN Creatinine Est GFR ( Amer) Est GFR (Non-Af Amer) Random Glucose Calcium Magnesium Total Bilirubin AST ALT Alkaline Phosphatase Troponin I NT-Pro-B Natriuret Pep Total Protein Albumin Globulin Albumin/Globulin Ratio Lipase TSH 3rd Generation Arterial Blood Potassium 4.0 Assessment & Plan - Assessment and Plan (Free Text) Assessment: Patient is a 73 yo male with PMH of HTN and APL admitted to hospital for shortness of breath. Recently discharged to [facility] after tx of cellulitis. ICU consulted for sepsis and hypoxia Neuro AAOX3 Pulm Duoneb Cxray shows possible PNA CV Consider restarting home amlodipine if patient bp remains elevated Episodes of hypotension recorded GI No active issues Heme Hx of APL- continue o/p management with Dr. Emily Lewis Chronic whole body dry scaly skin- Vaseline ointment 5gm q6h; Lac-Hydrin lotion BID; Benadryl Renal No acute issues ID Meets sepsis criteria; Zosyn continued DVT ppx: Heparin GI ppx: Protonix
--- NOTE | 2018-06-21 14:05 | CP.PCM.CON ---
History of Present Illness - History of Present Illness History of Present Illness: INFECTIOUS DISEASE CONSULT; REASON FOR Consult: SEPSIS. HPI; HPI: Patient is a 73 yo male w/ PMH of HTN and ACUTE PROMYELOCYTIC LEUKEMIA, TREATED FEW YEARS AGO, now admitted for shortness of breath and sepsis. Patient was recently in hospital for cellulitis in lower extremities and was dc'ed to rehab facility about a week ago. Patient began having multiple episodes of emesis starting at 1:00 am. Patient's family at bedside that patient did not complain of fevers recently. Patient's family denied sick contacts. Patient's family states patient was having cough production w/ clear sputum. Patient admits to chills and sob. Patient denies chest pain, n/v, constipation or diarrhea, headaches, dysuria. Patient also has a generalized scaly, peeling rash all over his body including palms and soles. As per notes of his previous admission patient has had this rash with history of eczema even in the previous admission. Patient denies any chest pain or hemoptysis. CXR ON ADMISSION SHOWS LEFT PERIHILAR OPACITY? PNEUMONIA. PATIENT WAS GIVEN A DOSE OF CEFEPIME 1 G AND VANCOMYCIN 1 G 1 INFECTIOUS DISEASE CONSULTATION REQUESTED BY DR MARTIN FOR SEPSIS/PNEUMONIA AND LEUKOCYTOSIS PMH- HTN, Leukemia (Prolymphocytic Leukemia) ,COLON POLYPS (HX SURGERY TO REMOVE), HYPERCHOLESTEROLEMIA. Meds- Gabapentin 300mg bid, prednisone 20mg po daily, Amlodipine 10mg, levocetirizine 5mg, MV once daily, Benadryl 50mg q6 prn Surgical History: Endoscopy,SURGERY FOR REMOVAL OF COLON POLYPS. Family History: States: No Known Family Hx - Social History Hx Alcohol Use: No Hx Substance Use: No - Immunization History Hx Tetanus Toxoid Vaccination: Yes Hx Influenza Vaccination: Yes Hx Pneumococcal Vaccination: Yes Review of Systems - Constitutional Constitutional: Chills, Lethargy - EENT Eyes: absent: Change in Vision Nose/Mouth/Throat: absent: Dry Mouth, Mouth Lesions - Cardiovascular Cardiovascular: Dyspnea. absent: Chest Pain - Respiratory Respiratory: As Per HPI, Cough, Dyspnea, Chest Congestion. absent: Hemoptysis - Gastrointestinal Gastrointestinal: Nausea, Vomiting. absent: Abdominal Pain, Diarrhea - Genitourinary Genitourinary: absent: Dysuria, Hematuria - Hematologic/Lymphatic Hematologic: As Per HPI. absent: Easy Bleeding, Easy Bruising Past Patient History - Past Medical History & Family History Past Medical History?: Yes - Past Social History Smoking Status: Never Smoked - CARDIAC Hx Hypercholesterolemia: Yes Hx Hypertension: Yes - NEUROLOGICAL Hx Transient Ischemic Attacks (TIA): No - HEENT Hx Cataracts: Yes (rehan) - HEMATOLOGICAL/ONCOLOGICAL Hx Blood Disorders: Yes Hx Leukemia: Yes (IN REMISSION) - INTEGUMENTARY Hx Dermatological Problems: Yes Hx Eczema: Yes (ALL OVER BODY) - MUSCULOSKELETAL/RHEUMATOLOGICAL Hx Fractures: No - GASTROINTESTINAL Hx Gastrointestinal Disorders: Yes Hx Bowel Surgery: Yes (2X RESECTION OF 2 LARGE, BENIGN POLYPS) - PSYCHIATRIC Hx Substance Use: No - SURGICAL HISTORY Hx Surgeries: Yes Hx Herniorrhaphy: Yes (RIGHT GROIN) - ANESTHESIA Hx Anesthesia: Yes Hx Anesthesia Reactions: No Hx Malignant Hyperthermia: No Meds Allergies/Adverse Reactions: Allergies Allergy/AdvReac Type Severity Reaction Status Date / Time No Known Allergies Allergy Verified 02/14/17 07:07 Physical Exam - Constitutional Appears: In Acute Distress - Head Exam Head Exam: NORMAL INSPECTION - Eye Exam Eye Exam: PERRL - ENT Exam ENT Exam: Mucous Membranes Dry, Normal Oropharynx - Neck Exam Neck exam: Positive for: Normal Inspection. Negative for: Meningismus - Respiratory Exam Respiratory Exam: Prolonged Expiratory Phase, Rhonchi - Cardiovascular Exam Cardiovascular Exam: Tachycardia, REGULAR RHYTHM, +S1, +S2 - GI/Abdominal Exam GI & Abdominal Exam: Normal Bowel Sounds, Soft. absent: Distended, Organomegaly - Extremities Exam Extremities exam: Positive for: pedal edema (1+), pedal pulses present. Negative for: calf tenderness - Neurological Exam Neurological exam: Alert, CN II-XII Intact - Skin Skin Exam: Rash (GENERALIZED DRY SCALY RASH ON AN ERYTHEMATOUS BASE, SKIN PEELING OFF AT PLACES. nO DISCHARGE NOTED) Results - Vital Signs Recent Vital Signs: Last Vital Signs Temp 97.8 F 06/21/18 13:08 Pulse 106 H 06/21/18 13:08 Resp 24 06/21/18 13:59 BP 97/63 L 06/21/18 13:08 Pulse Ox 91 L 06/21/18 13:49 - Labs Result Diagrams: 06/21/18 10:43 06/21/18 10:43 Labs: Laboratory Results - last 24 hr 06/21/18 06/21/18 06/21/18 10:43 10:43 10:43 WBC 19.2 H RBC 4.02 L Hgb 10.9 L Hct 33.5 L MCV 83.4 MCH 27.1 MCHC 32.4 L RDW 15.0 H Plt Count 501 H D MPV 9.4 Neut % (Auto) 44.3 L Lymph % (Auto) 51.6 H [place] % (Auto) 2.7 Eos % (Auto) 0.0 Baso % (Auto) 1.4 Neut # (Auto) 8.5 H Lymph # (Auto) 9.9 H [place] # (Auto) 0.5 Eos # (Auto) 0.0 Baso # (Auto) 0.3 H Neutrophils % (Manual) 21 L Band Neutrophils % 19 H* Lymphocytes % (Manual) 52 H Reactive Lymphs % 3 H Monocytes % (Manual) 4 Basophils % (Manual) 1 Platelet Estimate Increased H Poikilocytosis (manual Slight Anisocytosis (manual) Slight Target Cells Slight Ovalocytes Slight [place] Cells Slight PT 13.5 H INR 1.2 APTT 29 Puncture Site pCO2 pO2 HCO3 ABG pH ABG Total CO2 ABG O2 Saturation ABG Base Excess ABG Hemoglobin ABG Carboxyhemoglobin POC ABG HHb (Measured) ABG Methemoglobin [place] Test ABG Potassium Hgb O2 Saturation Glucose Lactate Liter Flow FiO2 Sodium 133 Potassium 4.8 Chloride 96 L Carbon Dioxide 24 Anion Gap 17 BUN 35 H Creatinine 1.3 Est GFR ( Amer) > 60 Est GFR (Non-Af Amer) 54 Random Glucose 82 Calcium 9.9 Magnesium 1.8 Total Bilirubin 1.1 AST 58 ALT 25 Alkaline Phosphatase 93 Troponin I 0.0580 NT-Pro-B Natriuret Pep 1390 H Total Protein 6.8 Albumin 3.5 Globulin 3.4 Albumin/Globulin Ratio 1.0 Lipase 126 TSH 3rd Generation 3.09 Arterial Blood Potassium 06/21/18 06/21/18 10:50 12:20 WBC RBC Hgb Hct MCV MCH MCHC RDW Plt Count MPV Neut % (Auto) Lymph % (Auto) [place] % (Auto) Eos % (Auto) Baso % (Auto) Neut # (Auto) Lymph # (Auto) [place] # (Auto) Eos # (Auto) Baso # (Auto) Neutrophils % (Manual) Band Neutrophils % Lymphocytes % (Manual) Reactive Lymphs % Monocytes % (Manual) Basophils % (Manual) Platelet Estimate Poikilocytosis (manual Anisocytosis (manual) Target Cells Ovalocytes [place] Cells PT INR APTT Puncture Site Vbg Lr pCO2 33 L 22 L pO2 71 L 176 H HCO3 24.9 25.9 ABG pH 7.46 H 7.59 H ABG Total CO2 24.5 21.8 L ABG O2 Saturation 96.4 99.5 H ABG Base Excess 0.1 1.2 ABG Hemoglobin 11.1 L ABG Carboxyhemoglobin 2.4 H POC ABG HHb (Measured) 3.5 ABG Methemoglobin 1.0 [place] Test Na Pos ABG Potassium 4.0 Hgb O2 Saturation 93.0 L Glucose 88 Lactate 3.8 H Liter Flow 3.0 FiO2 21.0 Sodium 138.0 Potassium Chloride 107.0 Carbon Dioxide Anion Gap BUN Creatinine Est GFR ( Amer) Est GFR (Non-Af Amer) Random Glucose Calcium Magnesium Total Bilirubin AST ALT Alkaline Phosphatase Troponin I NT-Pro-B Natriuret Pep Total Protein Albumin Globulin Albumin/Globulin Ratio Lipase TSH 3rd Generation Arterial Blood Potassium 4.0 - Imaging and Cardiology Chest x-ray Status: Report reviewed by me Assessment & Plan (1) Pneumonia Status: Acute (2) Leukocytosis Status: Acute (3) Generalized rash Status: Acute (4) APL (acute promyelocytic leukemia) Status: Acute (5) Azotemia Status: Acute - Assessment and Plan (Free Text) Plan: PLAN; ESPARZA CULTURE. CRP. MRSA SCREEN. START IV ZOSYN 3.375 GM IVPB Q 8HRLY 06/21/18. CONTINUE IV VANCOMYCIN 500MG IVPB Q 24HRLY 06/21/18. VANCO TROUGH PRIOR TO 4TH DOSE AND KEEP BETWEEN 10-15MCG/ML. F/U RENAL FUNCTION CLOSELY. LOCAL CARE /AND PODIATARY CONSULT IN PROGRESS. CALL HIS DERMATOLOGY FOR F/U OR AY SUGGESTIONS AND HIS SKIN BX REPORT IF DONE. WILL F/U WITH YOU. CASE DISCUSSED WRESIDENT AND STAFF.
--- NOTE | 2018-06-21 14:29 | CP.PCM.HP ---
History of Present Illness - History of Present Illness History of Present Illness: 73 years old male recently discharged from [facility] for cellulitis of lower extremities and eczema chronic to rehab center. Today in rehab patient was vomiting and there was possible aspiration as patient became short of breath with hypoxemia. Chest x-ray in the emergency room showed left hilar pneumonia. Patient was evaluated by ICU and will be admitted to ICU for further treatment. Patient's white cell count 19,000 Present on Admission - Present on Admission Any Indicators Present on Admission: No Review of Systems - Review of Systems All systems: reviewed and no additional remarkable complaints except (SHORTNESS OF BREATH, VOMITING AND HYPOXEMIA) Past Patient History - Past Medical History & Family History Past Medical History?: Yes - Past Social History Smoking Status: Never Smoked - CARDIAC Hx Hypercholesterolemia: Yes Hx Hypertension: Yes - NEUROLOGICAL Hx Transient Ischemic Attacks (TIA): No - HEENT Hx Cataracts: Yes (rehan) - HEMATOLOGICAL/ONCOLOGICAL Hx Blood Disorders: Yes Hx Leukemia: Yes (IN REMISSION) - INTEGUMENTARY Hx Dermatological Problems: Yes Hx Eczema: Yes (ALL OVER BODY) - MUSCULOSKELETAL/RHEUMATOLOGICAL Hx Fractures: No - GASTROINTESTINAL Hx Gastrointestinal Disorders: Yes Hx Bowel Surgery: Yes (2X RESECTION OF 2 LARGE, BENIGN POLYPS) - PSYCHIATRIC Hx Substance Use: No - SURGICAL HISTORY Hx Surgeries: Yes Hx Herniorrhaphy: Yes (RIGHT GROIN) - ANESTHESIA Hx Anesthesia: Yes Hx Anesthesia Reactions: No Hx Malignant Hyperthermia: No Meds Allergies/Adverse Reactions: Allergies Allergy/AdvReac Type Severity Reaction Status Date / Time No Known Allergies Allergy Verified 02/14/17 07:07 Physical Exam - Constitutional Appears: Well - Head Exam Head Exam: ATRAUMATIC, NORMAL INSPECTION, NORMOCEPHALIC - Eye Exam Eye Exam: EOMI, Normal appearance, PERRL Pupil Exam: NORMAL ACCOMODATION, PERRL - ENT Exam ENT Exam: Mucous Membranes Dry, Normal Exam - Neck Exam Neck exam: Positive for: Normal Inspection - Respiratory Exam Respiratory Exam: Rhonchi, Respiratory Distress - Cardiovascular Exam Cardiovascular Exam: REGULAR RHYTHM - GI/Abdominal Exam GI & Abdominal Exam: Normal Bowel Sounds, Soft. absent: Tenderness - Rectal Exam Rectal Exam: NORMAL INSPECTION - Exam External exam: NORMAL EXTERNAL EXAM - Extremities Exam Extremities exam: Positive for: normal inspection, pedal edema (DRY ECZEMATOUS SKIN) - Back Exam Back exam: NORMAL INSPECTION - Neurological Exam Neurological exam: Alert, CN II-XII Intact, Reflexes Normal - Psychiatric Exam Psychiatric exam: Normal Affect, Normal Mood - Skin Skin Exam: Dry, Rash, Warm Results - Vital Signs Recent Vital Signs: Last Vital Signs Temp 97.7 F 06/21/18 14:00 Pulse 107 H 06/21/18 14:10 Resp 23 06/21/18 14:10 BP 130/63 06/21/18 14:00 Pulse Ox 88 L 06/21/18 14:10 - Labs Result Diagrams: 06/21/18 10:43 06/21/18 10:43 Labs: Laboratory Results - last 24 hr 06/21/18 06/21/18 06/21/18 10:43 10:43 10:43 WBC 19.2 H RBC 4.02 L Hgb 10.9 L Hct 33.5 L MCV 83.4 MCH 27.1 MCHC 32.4 L RDW 15.0 H Plt Count 501 H D MPV 9.4 Neut % (Auto) 44.3 L Lymph % (Auto) 51.6 H [place] % (Auto) 2.7 Eos % (Auto) 0.0 Baso % (Auto) 1.4 Neut # (Auto) 8.5 H Lymph # (Auto) 9.9 H [place] # (Auto) 0.5 Eos # (Auto) 0.0 Baso # (Auto) 0.3 H Neutrophils % (Manual) 21 L Band Neutrophils % 19 H* Lymphocytes % (Manual) 52 H Reactive Lymphs % 3 H Monocytes % (Manual) 4 Basophils % (Manual) 1 Platelet Estimate Increased H Poikilocytosis (manual Slight Anisocytosis (manual) Slight Target Cells Slight Ovalocytes Slight [place] Cells Slight PT 13.5 H INR 1.2 APTT 29 Puncture Site pCO2 pO2 HCO3 ABG pH ABG Total CO2 ABG O2 Saturation ABG Base Excess ABG Hemoglobin ABG Carboxyhemoglobin POC ABG HHb (Measured) ABG Methemoglobin [place] Test ABG Potassium Hgb O2 Saturation Glucose Lactate Liter Flow FiO2 Sodium 133 Potassium 4.8 Chloride 96 L Carbon Dioxide 24 Anion Gap 17 BUN 35 H Creatinine 1.3 Est GFR ( Amer) > 60 Est GFR (Non-Af Amer) 54 Random Glucose 82 Calcium 9.9 Magnesium 1.8 Total Bilirubin 1.1 AST 58 ALT 25 Alkaline Phosphatase 93 Troponin I 0.0580 NT-Pro-B Natriuret Pep 1390 H Total Protein 6.8 Albumin 3.5 Globulin 3.4 Albumin/Globulin Ratio 1.0 Lipase 126 TSH 3rd Generation 3.09 Arterial Blood Potassium 06/21/18 06/21/18 10:50 12:20 WBC RBC Hgb Hct MCV MCH MCHC RDW Plt Count MPV Neut % (Auto) Lymph % (Auto) [place] % (Auto) Eos % (Auto) Baso % (Auto) Neut # (Auto) Lymph # (Auto) [place] # (Auto) Eos # (Auto) Baso # (Auto) Neutrophils % (Manual) Band Neutrophils % Lymphocytes % (Manual) Reactive Lymphs % Monocytes % (Manual) Basophils % (Manual) Platelet Estimate Poikilocytosis (manual Anisocytosis (manual) Target Cells Ovalocytes [place] Cells PT INR APTT Puncture Site Vbg Lr pCO2 33 L 22 L pO2 71 L 176 H HCO3 24.9 25.9 ABG pH 7.46 H 7.59 H ABG Total CO2 24.5 21.8 L ABG O2 Saturation 96.4 99.5 H ABG Base Excess 0.1 1.2 ABG Hemoglobin 11.1 L ABG Carboxyhemoglobin 2.4 H POC ABG HHb (Measured) 3.5 ABG Methemoglobin 1.0 [place] Test Na Pos ABG Potassium 4.0 Hgb O2 Saturation 93.0 L Glucose 88 Lactate 3.8 H Liter Flow 3.0 FiO2 21.0 Sodium 138.0 Potassium Chloride 107.0 Carbon Dioxide Anion Gap BUN Creatinine Est GFR ( Amer) Est GFR (Non-Af Amer) Random Glucose Calcium Magnesium Total Bilirubin AST ALT Alkaline Phosphatase Troponin I NT-Pro-B Natriuret Pep Total Protein Albumin Globulin Albumin/Globulin Ratio Lipase TSH 3rd Generation Arterial Blood Potassium 4.0 Assessment & Plan - Assessment and Plan (Free Text) Assessment: 1. Aspiration pneumonia with hypoxemia. #2 change of mental status. 3. History of recent cellulitis on antibiotic. 4. History of hypertension
--- NOTE | 2018-06-21 15:11 | CP.PCM.CON ---
<Kevin Guadalupe - Last Filed: 06/21/18 16:08> History of Present Illness - History of Present Illness History of Present Illness: PGY-1 Critical Care Consult Note for Dr. Booth's service Consult: Hypoxia and Sepsis HPI: Patient is a 73 yo male w/ PMH of HTN and APL admitted for shortness of breath and sepsis. Patient was recently in hospital for cellulitis in lower extremities and was dc'ed to rehab facility. Patient began having multiple episodes of emesis starting at 1:00 am. Patient's family at bedside that patient did not complain of fevers recently. Patient's family denied sick contacts. Patient's family states patient was having cough production w/ clear sputum. Patient admits to chills and sob. Patient denies chest pain, n/v, constipation or diarrhea, headaches, dysuria. PMH- HTN, Leukemia (Prolymphocytic Leukemia) Meds- Gabapentin 300mg bid, prednisone 20mg po daily, Amlodipine 10mg, levocetirizine 5mg, MV once daily, Benadryl 50mg q6 prn PSH- 2 colon surgeries FH-Denies Allergies-NKDA Social- Denies alcohol, tobacco, and drug use PMD- Dr. Post Code- Full code Review of Systems - Review of Systems Review of Systems: 12 point ROS obtained and noted in HPI Past Patient History - Past Medical History & Family History Past Medical History?: Yes - Past Social History Smoking Status: Never Smoked - CARDIAC Hx Hypercholesterolemia: Yes Hx Hypertension: Yes - NEUROLOGICAL Hx Transient Ischemic Attacks (TIA): No - HEENT Hx Cataracts: Yes (rehan) - HEMATOLOGICAL/ONCOLOGICAL Hx Blood Disorders: Yes Hx Leukemia: Yes (IN REMISSION) - INTEGUMENTARY Hx Dermatological Problems: Yes Hx Eczema: Yes (ALL OVER BODY) - MUSCULOSKELETAL/RHEUMATOLOGICAL Hx Fractures: No - GASTROINTESTINAL Hx Gastrointestinal Disorders: Yes Hx Bowel Surgery: Yes (2X RESECTION OF 2 LARGE, BENIGN POLYPS) - PSYCHIATRIC Hx Substance Use: No - SURGICAL HISTORY Hx Surgeries: Yes Hx Herniorrhaphy: Yes (RIGHT GROIN) - ANESTHESIA Hx Anesthesia: Yes Hx Anesthesia Reactions: No Hx Malignant Hyperthermia: No Meds Allergies/Adverse Reactions: Allergies Allergy/AdvReac Type Severity Reaction Status Date / Time No Known Allergies Allergy Verified 02/14/17 07:07 - Medications Medications: Current Medications Albuterol/Ipratropium (Duoneb 3 Mg/0.5 Mg (3 Ml) Ud) 3 ml INH RQ6 LAURA Emollient Ointment (Vaseline Oint) 5 gm TOP Q6H PRN PRN Reason: Dry skin Piperacillin Sod/Tazobactam Sod (Zosyn 3.375 Gm Iv Premix) 3.375 gm in 50 mls @ 100 mls/hr IVPB Q8H LAURA; Protocol Physical Exam - Constitutional Appears: Non-toxic, No Acute Distress, Chronically Ill - Head Exam Head Exam: ATRAUMATIC, NORMAL INSPECTION - Eye Exam Eye Exam: EOMI, Normal appearance. absent: Nystagmus, Scleral icterus - ENT Exam ENT Exam: Mucous Membranes Dry - Respiratory Exam Respiratory Exam: NORMAL BREATHING PATTERN. absent: Accessory Muscle Use, Rhonchi, Wheezes - Cardiovascular Exam Cardiovascular Exam: Tachycardia, REGULAR RHYTHM, +S1, +S2. absent: Bradycardia, Irregular Rhythm, JVD - GI/Abdominal Exam GI & Abdominal Exam: Normal Bowel Sounds, Soft. absent: Diminished Bowel Sounds, Distended, Firm, Guarding - Extremities Exam Extremities exam: Positive for: normal inspection. Negative for: calf tenderness, pedal edema - Back Exam Back exam: NORMAL INSPECTION. absent: CVA tenderness (L), CVA tenderness (R) - Neurological Exam Neurological exam: Alert, Oriented x3 - Psychiatric Exam Psychiatric exam: Normal Affect, Normal Mood - Skin Skin Exam: Dry Additional comments: chronic dermatitis w/ scaly peeling skin all over entire body blister formation bilaterally on soles of feet Results - Vital Signs Recent Vital Signs: Last Vital Signs Temp 97.7 F 06/21/18 14:00 Pulse 107 H 06/21/18 14:10 Resp 23 06/21/18 14:10 BP 130/63 06/21/18 14:00 Pulse Ox 88 L 06/21/18 14:10 - Labs Result Diagrams: 06/21/18 10:43 06/21/18 10:43 Labs: Laboratory Results - last 24 hr 06/21/18 06/21/18 06/21/18 10:43 10:43 10:43 WBC 19.2 H RBC 4.02 L Hgb 10.9 L Hct 33.5 L MCV 83.4 MCH 27.1 MCHC 32.4 L RDW 15.0 H Plt Count 501 H D MPV 9.4 Neut % (Auto) 44.3 L Lymph % (Auto) 51.6 H [place] % (Auto) 2.7 Eos % (Auto) 0.0 Baso % (Auto) 1.4 Neut # (Auto) 8.5 H Lymph # (Auto) 9.9 H [place] # (Auto) 0.5 Eos # (Auto) 0.0 Baso # (Auto) 0.3 H Neutrophils % (Manual) 21 L Band Neutrophils % 19 H* Lymphocytes % (Manual) 52 H Reactive Lymphs % 3 H Monocytes % (Manual) 4 Basophils % (Manual) 1 Platelet Estimate Increased H Poikilocytosis (manual Slight Anisocytosis (manual) Slight Target Cells Slight Ovalocytes Slight [place] Cells Slight PT 13.5 H INR 1.2 APTT 29 Puncture Site pCO2 pO2 HCO3 ABG pH ABG Total CO2 ABG O2 Saturation ABG Base Excess ABG Hemoglobin ABG Carboxyhemoglobin POC ABG HHb (Measured) ABG Methemoglobin [place]sm[place] Test ABG Potassium Hgb O2 Saturation Glucose Lactate Liter Flow FiO2 Sodium 133 Potassium 4.8 Chloride 96 L Carbon Dioxide 24 Anion Gap 17 BUN 35 H Creatinine 1.3 Est GFR ( Amer) > 60 Est GFR (Non-Af Amer) 54 Random Glucose 82 Calcium 9.9 Magnesium 1.8 Total Bilirubin 1.1 AST 58 ALT 25 Alkaline Phosphatase 93 Troponin I 0.0580 NT-Pro-B Natriuret Pep 1390 H Total Protein 6.8 Albumin 3.5 Globulin 3.4 Albumin/Globulin Ratio 1.0 Lipase 126 TSH 3rd Generation 3.09 Arterial Blood Potassium 06/21/18 06/21/18 10:50 12:20 WBC RBC Hgb Hct MCV MCH MCHC RDW Plt Count MPV Neut % (Auto) Lymph % (Auto) [place] % (Auto) Eos % (Auto) Baso % (Auto) Neut # (Auto) Lymph # (Auto) [place] # (Auto) Eos # (Auto) Baso # (Auto) Neutrophils % (Manual) Band Neutrophils % Lymphocytes % (Manual) Reactive Lymphs % Monocytes % (Manual) Basophils % (Manual) Platelet Estimate Poikilocytosis (manual Anisocytosis (manual) Target Cells Ovalocytes [place] Cells PT INR APTT Puncture Site Vbg Lr pCO2 33 L 22 L pO2 71 L 176 H HCO3 24.9 25.9 ABG pH 7.46 H 7.59 H ABG Total CO2 24.5 21.8 L ABG O2 Saturation 96.4 99.5 H ABG Base Excess 0.1 1.2 ABG Hemoglobin 11.1 L ABG Carboxyhemoglobin 2.4 H POC ABG HHb (Measured) 3.5 ABG Methemoglobin 1.0 Osmany Test Na Pos ABG Potassium 4.0 Hgb O2 Saturation 93.0 L Glucose 88 Lactate 3.8 H Liter Flow 3.0 FiO2 21.0 Sodium 138.0 Potassium Chloride 107.0 Carbon Dioxide Anion Gap BUN Creatinine Est GFR ( Amer) Est GFR (Non-Af Amer) Random Glucose Calcium Magnesium Total Bilirubin AST ALT Alkaline Phosphatase Troponin I NT-Pro-B Natriuret Pep Total Protein Albumin Globulin Albumin/Globulin Ratio Lipase TSH 3rd Generation Arterial Blood Potassium 4.0 Assessment & Plan - Assessment and Plan (Free Text) Assessment: Patient is a 73 yo male with PMH of HTN and APL admitted to hospital for shortness of breath. Recently discharged to [facility] after tx of cellulitis. ICU consulted for sepsis and hypoxia Neuro AAOX3 Pulm Duoneb; On high flow oxygen Cxray shows possible PNA- Zosyn ABG shows respiratory alkalosis CV Consider restarting home amlodipine if patient bp remains elevated Episodes of hypotension recorded GI No active issues Heme Hx of APL- continue o/p management with Dr. Emily Lewis Chronic whole body dry scaly skin- Vaseline ointment 5gm q6h; Lac-Hydrin lotion BID; Clotrimazole; Etiology likely related to patient APL (has oncology appointment on July 11) Renal NS bolus 500mls x 1 ID Meets sepsis criteria w/ elevated lactate; Zosyn; Further abx management as per ID. DVT ppx: Heparin GI ppx: Protonix <Antoni Booth S - Last Filed: 06/21/18 16:45> Meds - Medications Medications: Current Medications Albuterol/Ipratropium (Duoneb 3 Mg/0.5 Mg (3 Ml) Ud) 3 ml INH RQ6 LAURA Clotrimazole (Lotrimin 1%) 0 gm TOP BID LAURA Emollient Ointment (Vaseline Oint) 5 gm TOP Q6H PRN PRN Reason: Dry skin Piperacillin Sod/Tazobactam Sod (Zosyn 3.375 Gm Iv Premix) 3.375 gm in 50 mls @ 100 mls/hr IVPB Q8H LAURA; Protocol Lactic Acid (Lac-Hydrin 12% Lotion (225 G)) 1 gm EXT BID LAURA Pantoprazole Sodium (Protonix Ec Tab) 40 mg PO DAILY LAURA Results - Vital Signs Recent Vital Signs: Last Vital Signs Temp 98.2 F 06/21/18 16:00 Pulse 107 H 06/21/18 16:10 Resp 26 H 06/21/18 16:10 BP 91/44 L 06/21/18 16:00 Pulse Ox 95 06/21/18 16:10 - Labs Result Diagrams: 06/21/18 10:43 06/21/18 10:43 Labs: Laboratory Results - last 24 hr 06/21/18 06/21/18 06/21/18 10:43 10:43 10:43 WBC 19.2 H RBC 4.02 L Hgb 10.9 L Hct 33.5 L MCV 83.4 MCH 27.1 MCHC 32.4 L RDW 15.0 H Plt Count 501 H D MPV 9.4 Neut % (Auto) 44.3 L Lymph % (Auto) 51.6 H [place] % (Auto) 2.7 Eos % (Auto) 0.0 Baso % (Auto) 1.4 Neut # (Auto) 8.5 H Lymph # (Auto) 9.9 H [place] # (Auto) 0.5 Eos # (Auto) 0.0 Baso # (Auto) 0.3 H Neutrophils % (Manual) 21 L Band Neutrophils % 19 H* Lymphocytes % (Manual) 52 H Reactive Lymphs % 3 H Monocytes % (Manual) 4 Basophils % (Manual) 1 Platelet Estimate Increased H Poikilocytosis (manual Slight Anisocytosis (manual) Slight Target Cells Slight Ovalocytes Slight [place] Cells Slight PT 13.5 H INR 1.2 APTT 29 Puncture Site pCO2 pO2 HCO3 ABG pH ABG Total CO2 ABG O2 Saturation ABG Base Excess ABG Hemoglobin ABG Carboxyhemoglobin POC ABG HHb (Measured) ABG Methemoglobin [place]sm[place] Test ABG Potassium Hgb O2 Saturation Glucose Lactate Liter Flow FiO2 Sodium 133 Potassium 4.8 Chloride 96 L Carbon Dioxide 24 Anion Gap 17 BUN 35 H Creatinine 1.3 Est GFR ( Amer) > 60 Est GFR (Non-Af Amer) 54 Random Glucose 82 Calcium 9.9 Magnesium 1.8 Total Bilirubin 1.1 AST 58 ALT 25 Alkaline Phosphatase 93 Troponin I 0.0580 NT-Pro-B Natriuret Pep 1390 H Total Protein 6.8 Albumin 3.5 Globulin 3.4 Albumin/Globulin Ratio 1.0 Lipase 126 TSH 3rd Generation 3.09 Arterial Blood Potassium 06/21/18 06/21/18 10:50 12:20 WBC RBC Hgb Hct MCV MCH MCHC RDW Plt Count MPV Neut % (Auto) Lymph % (Auto) [place] % (Auto) Eos % (Auto) Baso % (Auto) Neut # (Auto) Lymph # (Auto) [place] # (Auto) Eos # (Auto) Baso # (Auto) Neutrophils % (Manual) Band Neutrophils % Lymphocytes % (Manual) Reactive Lymphs % Monocytes % (Manual) Basophils % (Manual) Platelet Estimate Poikilocytosis (manual Anisocytosis (manual) Target Cells Ovalocytes [place]uba Cells PT INR APTT Puncture Site Vbg Lr pCO2 33 L 22 L pO2 71 L 176 H HCO3 24.9 25.9 ABG pH 7.46 H 7.59 H ABG Total CO2 24.5 21.8 L ABG O2 Saturation 96.4 99.5 H ABG Base Excess 0.1 1.2 ABG Hemoglobin 11.1 L ABG Carboxyhemoglobin 2.4 H POC ABG HHb (Measured) 3.5 ABG Methemoglobin 1.0 Osmany Test Na Pos ABG Potassium 4.0 Hgb O2 Saturation 93.0 L Glucose 88 Lactate 3.8 H Liter Flow 3.0 FiO2 21.0 Sodium 138.0 Potassium Chloride 107.0 Carbon Dioxide Anion Gap BUN Creatinine Est GFR ( Amer) Est GFR (Non-Af Amer) Random Glucose Calcium Magnesium Total Bilirubin AST ALT Alkaline Phosphatase Troponin I NT-Pro-B Natriuret Pep Total Protein Albumin Globulin Albumin/Globulin Ratio Lipase TSH 3rd Generation Arterial Blood Potassium 4.0 Attending/Attestation - Attestation I have personally seen and examined this patient.: Yes I have fully participated in the care of the patient.: Yes I have reviewed all pertinent clinical information: Yes Notes (Text): 06/21/18 16:43 patient seen and examined 73-year-old 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 Chest x-ray consistent with left lower lung infiltrate with elevated lactate level and white count IV antibiotics Follow-up culture and sensitivity IV fluids Follow-up lactate level Intake and output DVT and stress ulcer prophylaxis
--- NOTE | 2018-06-21 15:59 | CP.PCM.CON ---
History of Present Illness - History of Present Illness History of Present Illness: Podiatry Consult Note - Dr. Choi 73 year old male patient with PMHx of HTN, leukemia, eczema seen and evaluated at bedside for bilateral foot pain. Patient currently admitted to the ICU for pneumonia. Patient states he has had severe scaling of both feet for several weeks duration and was recently hospitalized and treated for it. States he was getting creams applied which were showing improvements in his feet appearance and decreasing his pain. Denies F/C/N/V/CP/SOB PMH: HTN, leukemia, eczema PSH: colon resection, hernia repair FamHx: denies SocHx: denies ETOH/tobacco/illicit drug use All: NKDA Review of Systems - Review of Systems All systems: reviewed and no additional remarkable complaints except (per HPI) Past Patient History - Past Medical History & Family History Past Medical History?: Yes - Past Social History Smoking Status: Never Smoked - CARDIAC Hx Hypercholesterolemia: Yes Hx Hypertension: Yes - NEUROLOGICAL Hx Transient Ischemic Attacks (TIA): No - HEENT Hx Cataracts: Yes (rehan) - HEMATOLOGICAL/ONCOLOGICAL Hx Blood Disorders: Yes Hx Leukemia: Yes (IN REMISSION) - INTEGUMENTARY Hx Dermatological Problems: Yes Hx Eczema: Yes (ALL OVER BODY) - MUSCULOSKELETAL/RHEUMATOLOGICAL Hx Fractures: No - GASTROINTESTINAL Hx Gastrointestinal Disorders: Yes Hx Bowel Surgery: Yes (2X RESECTION OF 2 LARGE, BENIGN POLYPS) - PSYCHIATRIC Hx Substance Use: No - SURGICAL HISTORY Hx Surgeries: Yes Hx Herniorrhaphy: Yes (RIGHT GROIN) - ANESTHESIA Hx Anesthesia: Yes Hx Anesthesia Reactions: No Hx Malignant Hyperthermia: No Meds Allergies/Adverse Reactions: Allergies Allergy/AdvReac Type Severity Reaction Status Date / Time No Known Allergies Allergy Verified 02/14/17 07:07 - Medications Medications: Current Medications Albuterol/Ipratropium (Duoneb 3 Mg/0.5 Mg (3 Ml) Ud) 3 ml INH RQ6 LAURA Emollient Ointment (Vaseline Oint) 5 gm TOP Q6H PRN PRN Reason: Dry skin Piperacillin Sod/Tazobactam Sod (Zosyn 3.375 Gm Iv Premix) 3.375 gm in 50 mls @ 100 mls/hr IVPB Q8H LAURA; Protocol Lactic Acid (Lac-Hydrin 12% Lotion (225 G)) 1 gm EXT BID LAURA Physical Exam - Constitutional Appears: Well, Non-toxic, No Acute Distress - Extremities Exam Additional comments: VASC: DP/PT pulses palpable 2/4 B/L. CFT <3 seconds. TG warm to warm. Nonpitting edema b/l. NEURO: Gross sensation intact b/l. DERM: Severe xerosis + diffuse scaling present with fissuring throughout plantar aspect of foot B/L. No drainage, no purulence. Erythema noted to bilateral LE. ORTHO: Mild-moderate tenderness on palpation to fissures. ROM limited 2/2 edema. - Neurological Exam Neurological exam: Alert, Oriented x3 - Psychiatric Exam Psychiatric exam: Normal Affect, Normal Mood Results - Vital Signs Recent Vital Signs: Last Vital Signs Temp 97.7 F 06/21/18 14:00 Pulse 106 H 06/21/18 15:40 Resp 23 06/21/18 15:40 BP 95/64 L 06/21/18 15:00 Pulse Ox 91 L 06/21/18 15:40 - Labs Result Diagrams: 06/21/18 10:43 06/21/18 10:43 Labs: Laboratory Results - last 24 hr 06/21/18 06/21/18 06/21/18 10:43 10:43 10:43 WBC 19.2 H RBC 4.02 L Hgb 10.9 L Hct 33.5 L MCV 83.4 MCH 27.1 MCHC 32.4 L RDW 15.0 H Plt Count 501 H D MPV 9.4 Neut % (Auto) 44.3 L Lymph % (Auto) 51.6 H [place] % (Auto) 2.7 Eos % (Auto) 0.0 Baso % (Auto) 1.4 Neut # (Auto) 8.5 H Lymph # (Auto) 9.9 H [place] # (Auto) 0.5 Eos # (Auto) 0.0 Baso # (Auto) 0.3 H Neutrophils % (Manual) 21 L Band Neutrophils % 19 H* Lymphocytes % (Manual) 52 H Reactive Lymphs % 3 H Monocytes % (Manual) 4 Basophils % (Manual) 1 Platelet Estimate Increased H Poikilocytosis (manual Slight Anisocytosis (manual) Slight Target Cells Slight Ovalocytes Slight [place] Cells Slight PT 13.5 H INR 1.2 APTT 29 Puncture Site pCO2 pO2 HCO3 ABG pH ABG Total CO2 ABG O2 Saturation ABG Base Excess ABG Hemoglobin ABG Carboxyhemoglobin POC ABG HHb (Measured) ABG Methemoglobin Osmany Test ABG Potassium Hgb O2 Saturation Glucose Lactate Liter Flow FiO2 Sodium 133 Potassium 4.8 Chloride 96 L Carbon Dioxide 24 Anion Gap 17 BUN 35 H Creatinine 1.3 Est GFR ( Amer) > 60 Est GFR (Non-Af Amer) 54 Random Glucose 82 Calcium 9.9 Magnesium 1.8 Total Bilirubin 1.1 AST 58 ALT 25 Alkaline Phosphatase 93 Troponin I 0.0580 NT-Pro-B Natriuret Pep 1390 H Total Protein 6.8 Albumin 3.5 Globulin 3.4 Albumin/Globulin Ratio 1.0 Lipase 126 TSH 3rd Generation 3.09 Arterial Blood Potassium 06/21/18 06/21/18 10:50 12:20 WBC RBC Hgb Hct MCV MCH MCHC RDW Plt Count MPV Neut % (Auto) Lymph % (Auto) [place] % (Auto) Eos % (Auto) Baso % (Auto) Neut # (Auto) Lymph # (Auto) [place] # (Auto) Eos # (Auto) Baso # (Auto) Neutrophils % (Manual) Band Neutrophils % Lymphocytes % (Manual) Reactive Lymphs % Monocytes % (Manual) Basophils % (Manual) Platelet Estimate Poikilocytosis (manual Anisocytosis (manual) Target Cells Ovalocytes [place]uba Cells PT INR APTT Puncture Site Vbg Lr pCO2 33 L 22 L pO2 71 L 176 H HCO3 24.9 25.9 ABG pH 7.46 H 7.59 H ABG Total CO2 24.5 21.8 L ABG O2 Saturation 96.4 99.5 H ABG Base Excess 0.1 1.2 ABG Hemoglobin 11.1 L ABG Carboxyhemoglobin 2.4 H POC ABG HHb (Measured) 3.5 ABG Methemoglobin 1.0 Osmany Test Na Pos ABG Potassium 4.0 Hgb O2 Saturation 93.0 L Glucose 88 Lactate 3.8 H Liter Flow 3.0 FiO2 21.0 Sodium 138.0 Potassium Chloride 107.0 Carbon Dioxide Anion Gap BUN Creatinine Est GFR ( Amer) Est GFR (Non-Af Amer) Random Glucose Calcium Magnesium Total Bilirubin AST ALT Alkaline Phosphatase Troponin I NT-Pro-B Natriuret Pep Total Protein Albumin Globulin Albumin/Globulin Ratio Lipase TSH 3rd Generation Arterial Blood Potassium 4.0 Assessment & Plan - Assessment and Plan (Free Text) Assessment: 73 y/o male with PMHx HTN, leukemia, eczema with painful fissures and severe bilateral tinea pedis to plantar feet Plan: Patient seen and evaluated Discussed with attending, Dr. Choi Fissures appear xerotic and fungal in nature - pt responded well to previous treatment on last admission Rx placed for Clotrimazole + Ammonium lactate to be applied to feet TOP BID Podiatry will continue to follow
[2018-06-21] MEDS ORDERED: Sodium Chloride 0.9% 500 ML IV ONE (16:04)
[2018-06-21 16:50] LABS: URINE AMORPHOUS SEDIMENT RARE /ul (<OCC); URINE BACTERIA OCC (<OCC); URINE BILIRUBIN 1+ (NEGATIVE); URINE BLOOD NEGATIVE (NEGATIVE); URINE CLARITY Hazy (Clear); URINE COLOR Amber (YELLOW); URINE GLUCOSE (UA) NORMAL (Normal); URINE LEUKOCYTE ESTERASE NEG Leu/uL (Negative); URINE PROTEIN 2+ mg/dL (NEGATIVE)
[2018-06-21] MEDS: Pantoprazole 40 mg EC Tab PO SCH (17:00)
--- NOTE | 2018-06-21 17:30 | PCM.PROC ---
Procedures Attestation:: I certify that I have explained the specified Operation(s) or Procedure(s), risks, benefits and reasonable alternatives to the Patient and/or other person responsible. The opportunity was given to ask questions and all questions answered - Central Line Placement Right Internal Jugular Triple Lumen Catheter Aseptic technique was employed throughout the procedure: Hand Hygiene done prior to procedure, Full sterile barriers (mask, hair cover, sterile gown, sterile gloves), Full body sterile drape, Chloraprep Antiseptic: 30 second prep for IJ or SC sites CVP Time Out Performed: Yes Pt. Placed on Pulse Ox Monitor: Yes Central Line Prep: Chlorhexidine-Alcohol Combination Local Anesthesia Used: Lidocaine 1% Amount of Anesthesia Used (mls): 3 Ultrasound Used for Placement: Yes Central Line Lumen Inserted: triple Central Line Length: 20 cm (16cm at skin) Post Procedure: Sutured in Place, Good Blood Return, All Ports Aspirated, Flushed, Capped, Sterile Dressing Applied Secured by: Suture Post procedure dressing: Clear vapor permeable, Chlorhexidine disc (Biopatch) Post Procedure X-Ray: Yes Patient Tolerated Procedure: Well, No Complications Immediate Complications: None Additional Comments: Written Consent Obtained. No immediate complications noted. Patient tolerated Procedure Well.
--- NOTE | 2018-06-21 17:53 | RAD ---
HISTORY: s/p central line insertion IJ COMPARISON: Chest x-ray performed 06/21/18 TECHNIQUE: Chest, one view. FINDINGS: Right IJ approach central venous catheter extends to the SVC. LUNGS: Left perihilar as well as right infrahilar opacities suspected to represent pneumonia. Please note that chest x-ray has limited sensitivity for the detection of pulmonary masses. PLEURA: No significant pleural effusion identified. No definite pneumothorax . CARDIOVASCULAR: Enlargement of the cardiomediastinal silhouette. Atherosclerotic calcifications. Ectatic aorta. OSSEOUS STRUCTURES: Degenerative changes. VISUALIZED UPPER ABDOMEN: Unremarkable. OTHER FINDINGS: None. IMPRESSION: Left perihilar as well as right infrahilar opacities suspected to represent pneumonia. Recommend continued close interval follow-up. Enlargement of the cardiomediastinal silhouette.
[2018-06-21] MEDS ORDERED: Ammonium Lactate 12% Lotion (225 g) EXT SCH (18:00)
[2018-06-21] MEDS: Piperacill/Tazo 3.375gm in Dex 3.375 GM/50 ML BAG IVPB SCH (18:07)
[2018-06-21] MEDS: Clotrimazole 1% Cream(30 gm) TOP SCH (18:15)
[2018-06-22] MEDS: Albuterol-Ipratrop 3 mg / 0.5 (3 ml) UD INH SCH ×3 (01:16→13:11)
[2018-06-22] MEDS: Piperacill/Tazo 3.375gm in Dex 3.375 GM/50 ML BAG IVPB SCH ×2 (02:36→10:45)
[2018-06-22 06:14] LABS: BASO # 0.3 K/uL (0.0-0.2); BASO % 0.9 % (0.0-2.0); EOS % 0.2 % (0.0-4.0); HEMOGLOBIN 9.2 g/dL (12.0-18.0); LYMPH # 13.1 K/uL (1.0-4.3); LYMPH % 42.8 % (20.0-40.0); MEAN CELL VOLUME 83.6 fL (80.0-94.0); MEAN CORPUSCULAR HEMOGLOBIN 26.6 pg (27.0-31.0); MEAN CORPUSCULAR HGB CONC 31.9 g/dL (33.0-37.0); MEAN PLATELET VOLUME 9.8 fL (7.2-11.7); MONO # 0.9 K/uL (0.0-0.8); NEUT # 16.3 K/uL (1.8-7.0); NEUT % 53.1 % (50.0-75.0); NRBC % 0.2 % (0.0-2.0); PLATELET COUNT 451 K/uL (130-400); RBC 3.46 Mil/uL (4.40-5.90); RED CELL DISTRIBUTION WIDTH 14.9 % (11.5-14.5); WHITE BLOOD COUNT 30.6 K/uL (4.8-10.8)
[2018-06-22 06:44] LABS: ALBUMIN 3.2 g/dL (3.5-5.0); CALCIUM 9.4 mg/dl (8.6-10.4)
--- NOTE | 2018-06-22 07:15 | PCM.SEPTIC ---
Sepsis Progress Note - Reassessment Type Date of Evaluation: 06/21/18 Time of Evaluation: 16:10 Reassessment Type: Non-invasive reassessment - Non Invasive Reassessment Were the most recent vital sign reviewed: Yes Vital Sign (Latest): Temp Pulse Resp BP Pulse Ox 98.9 F 102 H 19 125/60 97 06/22/18 04:00 06/22/18 06:00 06/22/18 06:00 06/22/18 05:53 06/22/18 06:00 Cardiovascular: Yes: Regular Rate, Rhythm, Tachycardia. No: Edema, JVD, Murmur Respiratory: Yes: Wheezing. No: Decreased Breath Sounds, Accessory Muscle Use, Respiratory Distress Capillary Refill: Normal (Less than 2 sec) Pulses: Normal Radial, Normal Dorsalis Pedis, Normal Posterior Tibialis Skin: Dry, Other (chronic skin scaling with peeling and blister formation) - Invasive Reassessment (complete 2 of 4) Was a Central Venous Pressure Measurement obtained within 6 Hours after the presentation of septic shock: No Was a central venous oxygen measurement obtained within 6 hours after the presentation of septic shock: No Was a bedside cardiovascular ultrasound performed within 6 hours after the presentation of septic shock: No Was a passive leg raise performed or was a fluid challenge performed within 6 hrs of the initial fluid bolus: No Passive Leg Raise Result: Not Applicable Fluid Challenge performed: No
[2018-06-22] MEDS ORDERED: Sodium Chloride 0.9% 1,000 ML IV SCH ×2 (08:15→22:10)
[2018-06-22 09:01] LABS: BANDS 43 % (0-2); LYMPHOCYTE 24 % (20-40); METAMYELOCYTE 1 % (0-0); MONOCYTE 10 % (0-10); NEUTROPHIL 22 % (50-75); PLATELET ESTIMATE NORMAL (NORMAL); TOTAL CELLS COUNTED 100
[2018-06-22 09:02] LABS: ACANTHOCYTES MODERATE; ANISOCYTOSIS MODERATE; BURR CELLS SLIGHT; HYPOCHROMIC SLIGHT; POIKILOCYTOSIS MODERATE; TEARDROP CELLS SLIGHT
[2018-06-22 09:03] LABS: MICROCYTOSIS SLIGHT; OVALOCYTES SLIGHT; TOXIC GRANULATION PRESENT
[2018-06-22 09:04] LABS: GIANT PLATELETS PRESENT; LARGE PLATELETS PRESENT; TARGET CELLS SLIGHT
[2018-06-22] MEDS ORDERED: Dextrose 50% SYRINGE Inj (50 ml) IV STA (10:35)
[2018-06-22] MEDS ORDERED: (Novolin R) Insulin Human Regular 100 units/ml vial IVP ONE (10:36)
[2018-06-22 10:43] LABS: URIC ACID 10.7 mg/dL (3.5-8.5)
[2018-06-22] MEDS: Sodium Chloride 0.9% 1,000 ML IV SCH ×2 (10:49→18:28)
[2018-06-22] MEDS: Clotrimazole 1% Cream(30 gm) TOP SCH ×2 (10:55→18:28)
[2018-06-22] MEDS: Pantoprazole 40 mg EC Tab PO SCH (10:56)
[2018-06-22 11:48] LABS: SQUAMOUS EPITHIAL < 1 /hpf (0-5); URINE BACTERIA RARE (<OCC); URINE BILIRUBIN NEGATIVE (NEGATIVE); URINE BLOOD NEGATIVE (NEGATIVE); URINE CLARITY Hazy (Clear); URINE COLOR Amber (YELLOW); URINE GLUCOSE (UA) NORMAL (Normal); URINE LEUKOCYTE ESTERASE NEG Leu/uL (Negative); URINE PROTEIN 1+ mg/dL (NEGATIVE); URINE UROBILINOGEN NORMAL mg/dL (0.2-1.0)
[2018-06-22 11:49] LABS: OSMOLALITY,URINE 424 mosm/kg (300-1000)
[2018-06-22] MEDS ORDERED: Piperacill/Tazo 2.25gm in Dex 2.25 GM/50 ML BAG IVPB SCH (12:00)
[2018-06-22 12:03] LABS: CREATININE, RANDOM URINE 77.4 mg/dL
--- NOTE | 2018-06-22 13:46 | US ---
Date of service: 06/22/2018 PROCEDURE: Ultrasound of the Kidneys HISTORY: r/o obstruction COMPARISON: None available. TECHNIQUE: Sonogram of the kidneys. FINDINGS: RIGHT KIDNEY: Measures: 11.0 cm. Normal in size, contour and echogenicity. Upper pole simple cortical cyst, 3.3 x 3.4 x 4.1 cm. No solid mass. No calculus. No hydronephrosis. LEFT KIDNEY: Measures: 11.6 cm. Normal in size, contour and echogenicity. Mid left renal simple cortical cyst, 6.1 x 5.8 x 7.2 cm. No solid mass. No calculus. No hydronephrosis. OTHER FINDINGS: None. IMPRESSION: Bilateral simple renal cortical cyst. No evidence of hydronephrosis.
--- NOTE | 2018-06-22 14:12 | CP.PCM.PN ---
Subjective - Date & Time of Evaluation Date of Evaluation: 06/22/18 Time of Evaluation: 14:09 - Subjective Subjective: CHIEF COMPLAINTS TODAY : Patient appears to be in no acute distress. Patient has periods of confusion ROS. HEENT : N. Resp : No cough, wheezing ,pleuritic CP ,or hemoptysis Cardio : No anginal CP, PND, orthopnea, palpitation GI : No abd.pain, n/v ,diarrhea or GI bleeding . 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 Musculoskel : No joint swelling , Derm rash all over the body Psych : Normal affect. Ext : No swelling ,calf pain PE. Pt. is alert awake in no distress. V.S As noted in the chart Head ,ear nose,throat and eyes : Normal. Neck : Supple with normal carotids. Lungs: Clear air entry. Heart : S1 & S2 normal with S4. No murmur. Abd : Soft non tender with normal bowel sounds. Neuro : Moves all ext. with no localized deficit. Ext : No edema with intact pulses.Non tender calves Derm : Generalized erythema with exfoliation LABS/RADIOLOGY: ASSESSMENT/PLAN : Continue IV antibiotics. Local cream for skin lesions WBC has trending upwards we will consult oncology and hematology for his input. BUN and creatinine has gone up vancomycin adjusted Objective - Vital Signs/Intake and Output Vital Signs (last 24 hours): Temp Pulse Resp BP Pulse Ox 98.0 F 101 H 19 127/59 L 99 06/22/18 12:00 06/22/18 13:17 06/22/18 13:17 06/22/18 13:17 06/22/18 13:17 Intake and Output: 06/22/18 06/22/18 11:59 23:59 Intake Total 700 633.4 Output Total 1728 65 Balance -1028 568.4 - Medications Medications: Current Medications Albuterol/Ipratropium (Duoneb 3 Mg/0.5 Mg (3 Ml) Ud) 3 ml INH RQ6 [facility] Last Admin: 06/22/18 13:11 Dose: 3 ml Clotrimazole (Lotrimin 1%) 0 gm TOP BID [facility] Last Admin: 06/22/18 10:55 Dose: 1 appl Emollient Ointment (Vaseline Oint) 5 gm TOP Q6H PRN PRN Reason: Dry skin Gabapentin (Neurontin) 300 mg PO BID [facility] Last Admin: 06/22/18 10:56 Dose: 300 mg Heparin Sodium (Porcine) (Heparin) 5,000 units SC Q8H [facility] Last Admin: 06/22/18 06:05 Dose: 5,000 units Sodium Chloride (Sodium Chloride 0.9%) 1,000 mls @ 150 mls/hr IV .Q6H40M [facility] Last Admin: 06/22/18 10:49 Dose: 150 mls/hr Calcium Gluconate 2,000 mg/ (Sodium Chloride) 270 mls @ 67.5 mls/hr IVPB ONCE ONE Stop: 06/22/18 15:59 Last Admin: 06/22/18 12:03 Dose: 67.5 mls/hr Linezolid (Zyvox 600mg/300ml D5w) 600 mg in 300 mls @ 200 mls/hr IVPB Q12H [facility]; Protocol Meropenem 500 mg/ Sodium (Chloride) 100 mls @ 100 mls/hr IVPB Q12H [facility]; Protocol Pantoprazole Sodium (Protonix Ec Tab) 40 mg PO DAILY [facility] Last Admin: 06/22/18 10:56 Dose: 40 mg - Labs Labs: 06/22/18 06:02 06/22/18 06:02 PT 13.5 SECONDS (9.7-12.2) H 06/21/18 10:43 INR 1.2 06/21/18 10:43 APTT 29 SECONDS (21-34) 06/21/18 10:43
--- NOTE | 2018-06-22 14:30 | CP.CCUPN ---
<Mati Guadalupejasson - Last Filed: 06/22/18 14:23> CCU Subjective - Physician Review Events Since Last Encounter (Free Text): 06/22/18 14:23 3 x episodes of vomiting overnight. NG tube was placed with 1000ml drained Subjective (Free Text): 06/22/18 14:24 PGY-1 Critical Care Progress Note for Dr. Bradley's service Patient seen and examined at bedside. Patient is spitting up green phlegm. Patient denies fevers, chills, chest pain, sob, n/v, constipation or diarrhea, and dysuria. Critical Care Time Spent (in minutes): 35 CCU Objective - Vital Signs / Intake & Output Vital Signs (Last 4 hours): Vital Signs Temp Pulse Resp BP Pulse Ox 06/22/18 13:17 101 H 19 127/59 L 99 06/22/18 12:16 101 H 20 126/68 93 L 06/22/18 12:00 98.0 F 06/22/18 11:17 106 H 19 135/57 L 96 Intake and Output (Last 8hrs): Intake & Output 06/21/18 06/22/18 06/22/18 22:59 06:59 14:59 Intake Total 525 645 8114.4 Output Total 150 1503 290 Balance 400 -1353 893.4 Weight 153 lb 9 oz Intake: Intake, IV Amount 100 50 783.4 Right Forearm 100 50 Right Medial Port 133.4 Internal Jugular Right Proximal Port 650 Internal Jugular Oral 450 100 400 Output: Gastric Amount 1300 Right Nares 1300 Urine 150 200 290 Straight 150 200 Urethral ([place]) 290 Emesis 3 Other: # Voids Urine, Voided 0 - Physical Exam Head: Positive for: Atraumatic, Normocephalic Pupils: Positive for: PERRL Mouth: Positive for: Dry Respiratory/Chest: Positive for: Rhonchi. Negative for: Clear to Auscultation, Respiratory Distress, Accessory Muscle Use Cardiovascular: Positive for: Normal S1, S2, Tachycardic. Negative for: Murmurs Abdomen: Positive for: Normal Bowel Sounds. Negative for: Tenderness, Distention, Peritoneal Signs Upper Extremity: Positive for: Normal Inspection, NORMAL PULSES. Negative for: Cyanosis, Edema Lower Extremity: Positive for: Normal Inspection, NORMAL PULSES. Negative for: Edema, CALF TENDERNESS Neurological: Positive for: GCS=15 Skin: Positive for: Warm, Dry, Other (chronic skin peeling and blistering). Negative for: Rashes, Normal Color Psychiatric: Positive for: Alert, Oriented x 3 - Medications Active Medications: Active Medications Generic Name Dose Route Start Last Admin Trade Name Freq PRN Reason Stop Dose Admin Albuterol/Ipratropium 3 ml 06/21/18 20:00 06/22/18 13:11 Duoneb 3 Mg/0.5 Mg (3 Ml) Ud INH 3 ml RQ6 LAURA Administration Clotrimazole 0 gm 06/21/18 18:00 06/22/18 10:55 Lotrimin 1% TOP 1 appl BID LAURA Administration Emollient Ointment 5 gm 06/21/18 14:28 Vaseline Oint TOP Q6H PRN Dry skin Gabapentin 300 mg 06/21/18 18:15 06/22/18 10:56 Neurontin PO 300 mg BID LAURA Administration Heparin Sodium (Porcine) 5,000 units 06/21/18 22:00 06/22/18 06:05 Heparin SC 5,000 units Q8H LAURA Administration Sodium Chloride 1,000 mls @ 150 mls/hr 06/22/18 10:27 06/22/18 10:49 Sodium Chloride 0.9% IV 150 mls/hr .[id number] LAURA Administration Calcium Gluconate 2,000 mg/ 270 mls @ 67.5 mls/hr 06/22/18 12:00 06/22/18 12:03 Sodium Chloride IVPB 06/22/18 15:59 67.5 mls/hr ONCE ONE Administration Per Protocol Linezolid 600 mg in 300 mls @ 200 mls/hr 06/22/18 14:00 Zyvox 600mg/300ml D5w IVPB Q12H LAURA Protocol Meropenem 500 mg/ Sodium 100 mls @ 100 mls/hr 06/22/18 16:00 Chloride IVPB Q12H LAURA Protocol Pantoprazole Sodium 40 mg 06/21/18 16:15 06/22/18 10:56 Protonix Ec Tab PO 40 mg DAILY LAURA Administration - Patient Studies Lab Studies: Microbiology Studies 06/21/18 14:26 MRSA Culture (Admit) - Final Naris MRSA NOT DETECTED 06/21/18 10:50 Blood Culture - Preliminary Blood NO GROWTH AFTER 24 HOURS 06/21/18 10:35 Blood Culture - Preliminary Blood NO GROWTH AFTER 24 HOURS 06/21/18 16:42 Urine Culture - Final Urine No Growth (<1,000 CFU/ML) Lab Studies 06/22/18 06/22/18 06/22/18 Range/Units 13:42 13:42 11:36 WBC (4.8-10.8) K/uL RBC (4.40-5.90) Mil/uL Hgb (12.0-18.0) g/dL Hct (35.0-51.0) % MCV (80.0-94.0) fL MCH (27.0-31.0) pg MCHC (33.0-37.0) g/dL RDW (11.5-14.5) % Plt Count (130-400) K/uL MPV (7.2-11.7) fL Neut % (Auto) (50.0-75.0) % Lymph % (Auto) (20.0-40.0) % [place] % (Auto) (0.0-10.0) % Eos % (Auto) (0.0-4.0) % Baso % (Auto) (0.0-2.0) % Neut # (Auto) (1.8-7.0) K/uL Lymph # (Auto) (1.0-4.3) K/uL [place] # (Auto) (0.0-0.8) K/uL Eos # (Auto) (0.0-0.7) K/uL Baso # (Auto) (0.0-0.2) K/uL Neutrophils % (Manual) (50-75) % Band Neutrophils % (0-2) % Lymphocytes % (Manual) (20-40) % Monocytes % (Manual) (0-10) % Metamyelocytes % (0-0) % Toxic Granulation Platelet Estimate (NORMAL) Large Platelets Giant Platelets Hypochromasia (manual) Poikilocytosis (manual Anisocytosis (manual) Microcytosis (manual) Target Cells Tear Drop Cells Ovalocytes [place] Cells Acanthocytes (Spur) Sodium (132-148) mmol/L Potassium (3.6-5.2) mmol/L Chloride (98-107) mmol/L Carbon Dioxide (22-30) mmol/L Anion Gap (10-20) BUN (9-20) mg/dL Creatinine (0.8-1.5) mg/dL Est GFR ( Amer) Est GFR (Non-Af Amer) Random Glucose (75-110) mg/dL Serum Osmolality (272-300) mosm/kg Lactic Acid (0.7-2.1) mmol/L Uric Acid (3.5-8.5) mg/dL Calcium (8.6-10.4) mg/dl Phosphorus (2.5-4.5) mg/dL Magnesium (1.6-2.3) mg/dL Total Bilirubin (0.2-1.3) mg/dL AST (17-59) U/L ALT (21-72) U/L Alkaline Phosphatase (38-126) U/L Total Creatine Kinase (55-170) U/L Total Protein (6.3-8.3) g/dL Albumin (3.5-5.0) g/dL Globulin (2.2-3.9) gm/dL Albumin/Globulin Ratio (1.0-2.1) Procalcitonin (0.19-0.49) NG/ML Urine Color Nuris (YELLOW) Urine Clarity Hazy (Clear) Urine pH 5.0 (5.0-8.0) Ur Specific [place] 1.021 (1.003-1.030) Urine Protein 1+ H (NEGATIVE) mg/dL Urine Glucose (UA) Normal (Normal) mg/dL Urine Ketones Negative (NEGATIVE) mg/dL Urine Blood Negative (NEGATIVE) Urine Nitrate Negative (NEGATIVE) Urine Bilirubin Negative (NEGATIVE) Urine Urobilinogen Normal (0.2-1.0) mg/dL Ur Leukocyte Esterase Neg (Negative) Zehra/uL Urine WBC (Auto) 7 H (0-5) /hpf Urine RBC (Auto) 3 (0-3) /hpf Ur Squamous Epith Cells < 1 (0-5) /hpf Amorphous Sediment (<OCC) /ul Urine Bacteria Rare (<OCC) Hyaline Casts (0-2) /lpf Urine Eosinophils Negative (NEGATIVE) Urine Osmolality (300-1000) mosm/kg Ur Random Creatinine mg/dL Ur Random Sodium mmol/L Random Vancomycin 11.5 ug/mL Ur L.pneumophila Ag (NEGATIVE) Mycoplasma pneumon IgM (NEGATIVE) 06/22/18 06/22/18 06/22/18 Range/Units 11:36 11:36 06:02 WBC (4.8-10.8) K/uL RBC (4.40-5.90) Mil/uL Hgb (12.0-18.0) g/dL Hct (35.0-51.0) % MCV (80.0-94.0) fL MCH (27.0-31.0) pg MCHC (33.0-37.0) g/dL RDW (11.5-14.5) % Plt Count (130-400) K/uL MPV (7.2-11.7) fL Neut % (Auto) (50.0-75.0) % Lymph % (Auto) (20.0-40.0) % [place] % (Auto) (0.0-10.0) % Eos % (Auto) (0.0-4.0) % Baso % (Auto) (0.0-2.0) % Neut # (Auto) (1.8-7.0) K/uL Lymph # (Auto) (1.0-4.3) K/uL [place] # (Auto) (0.0-0.8) K/uL Eos # (Auto) (0.0-0.7) K/uL Baso # (Auto) (0.0-0.2) K/uL Neutrophils % (Manual) (50-75) % Band Neutrophils % (0-2) % Lymphocytes % (Manual) (20-40) % Monocytes % (Manual) (0-10) % Metamyelocytes % (0-0) % Toxic Granulation Platelet Estimate (NORMAL) Large Platelets Giant Platelets Hypochromasia (manual) Poikilocytosis (manual Anisocytosis (manual) Microcytosis (manual) Target Cells Tear Drop Cells Ovalocytes [place] Cells Acanthocytes (Spur) Sodium 135 (132-148) mmol/L Potassium 5.7 H (3.6-5.2) mmol/L Chloride 95 L (98-107) mmol/L Carbon Dioxide 26 (22-30) mmol/L Anion Gap 20 (10-20) BUN 64 H (9-20) mg/dL Creatinine 2.7 H (0.8-1.5) mg/dL Est GFR ( Amer) 28 Est GFR (Non-Af Amer) 23 Random Glucose 83 (75-110) mg/dL Serum Osmolality 315 H (272-300) mosm/kg Lactic Acid (0.7-2.1) mmol/L Uric Acid 10.7 H (3.5-8.5) mg/dL Calcium 9.4 (8.6-10.4) mg/dl Phosphorus 7.2 H (2.5-4.5) mg/dL Magnesium 1.9 (1.6-2.3) mg/dL Total Bilirubin 0.7 (0.2-1.3) mg/dL AST 43 (17-59) U/L ALT 28 (21-72) U/L Alkaline Phosphatase 88 (38-126) U/L Total Creatine Kinase 127 (55-170) U/L Total Protein 6.3 (6.3-8.3) g/dL Albumin 3.2 L (3.5-5.0) g/dL Globulin 3.1 (2.2-3.9) gm/dL Albumin/Globulin Ratio 1.0 (1.0-2.1) Procalcitonin (0.19-0.49) NG/ML Urine Color (YELLOW) Urine Clarity (Clear) Urine pH (5.0-8.0) Ur Specific [place] (1.003-1.030) Urine Protein (NEGATIVE) mg/dL Urine Glucose (UA) (Normal) mg/dL Urine Ketones (NEGATIVE) mg/dL Urine Blood (NEGATIVE) Urine Nitrate (NEGATIVE) Urine Bilirubin (NEGATIVE) Urine Urobilinogen (0.2-1.0) mg/dL Ur Leukocyte Esterase (Negative) Zehra/uL Urine WBC (Auto) (0-5) /hpf Urine RBC (Auto) (0-3) /hpf Ur Squamous Epith Cells (0-5) /hpf Amorphous Sediment (<OCC) /ul Urine Bacteria (<OCC) Hyaline Casts (0-2) /lpf Urine Eosinophils (NEGATIVE) Urine Osmolality 424 (300-1000) mosm/kg Ur Random Creatinine 77.4 mg/dL Ur Random Sodium < 5 mmol/L Random Vancomycin ug/mL Ur L.pneumophila Ag (NEGATIVE) Mycoplasma pneumon IgM (NEGATIVE) 06/22/18 06/21/18 06/21/18 Range/Units 06:02 16:42 16:42 WBC 30.6 H D (4.8-10.8) K/uL RBC 3.46 L (4.40-5.90) Mil/uL Hgb 9.2 L (12.0-18.0) g/dL Hct 28.9 L (35.0-51.0) % MCV 83.6 (80.0-94.0) fL MCH 26.6 L (27.0-31.0) pg MCHC 31.9 L (33.0-37.0) g/dL RDW 14.9 H (11.5-14.5) % Plt Count 451 H (130-400) K/uL MPV 9.8 (7.2-11.7) fL Neut % (Auto) 53.1 (50.0-75.0) % Lymph % (Auto) 42.8 H (20.0-40.0) % [place] % (Auto) 3.0 (0.0-10.0) % Eos % (Auto) 0.2 (0.0-4.0) % Baso % (Auto) 0.9 (0.0-2.0) % Neut # (Auto) 16.3 H (1.8-7.0) K/uL Lymph # (Auto) 13.1 H (1.0-4.3) K/uL [place] # (Auto) 0.9 H (0.0-0.8) K/uL Eos # (Auto) 0.0 (0.0-0.7) K/uL Baso # (Auto) 0.3 H (0.0-0.2) K/uL Neutrophils % (Manual) 22 L (50-75) % Band Neutrophils % 43 H* (0-2) % Lymphocytes % (Manual) 24 (20-40) % Monocytes % (Manual) 10 (0-10) % Metamyelocytes % 1 H (0-0) % Toxic Granulation Present Platelet Estimate Normal (NORMAL) Large Platelets Present Giant Platelets Present Hypochromasia (manual) Slight Poikilocytosis (manual Moderate Anisocytosis (manual) Moderate Microcytosis (manual) Slight Target Cells Slight Tear Drop Cells Slight Ovalocytes Slight [place] Cells Slight Acanthocytes (Spur) Moderate Sodium (132-148) mmol/L Potassium (3.6-5.2) mmol/L Chloride (98-107) mmol/L Carbon Dioxide (22-30) mmol/L Anion Gap (10-20) BUN (9-20) mg/dL Creatinine (0.8-1.5) mg/dL Est GFR ( Amer) Est GFR (Non-Af Amer) Random Glucose (75-110) mg/dL Serum Osmolality (272-300) mosm/kg Lactic Acid (0.7-2.1) mmol/L Uric Acid (3.5-8.5) mg/dL Calcium (8.6-10.4) mg/dl Phosphorus (2.5-4.5) mg/dL Magnesium (1.6-2.3) mg/dL Total Bilirubin (0.2-1.3) mg/dL AST (17-59) U/L ALT (21-72) U/L Alkaline Phosphatase (38-126) U/L Total Creatine Kinase (55-170) U/L Total Protein (6.3-8.3) g/dL Albumin (3.5-5.0) g/dL Globulin (2.2-3.9) gm/dL Albumin/Globulin Ratio (1.0-2.1) Procalcitonin (0.19-0.49) NG/ML Urine Color Nuris (YELLOW) Urine Clarity Hazy (Clear) Urine pH 5.0 (5.0-8.0) Ur Specific [place] 1.020 (1.003-1.030) Urine Protein 2+ H (NEGATIVE) mg/dL Urine Glucose (UA) Normal (Normal) mg/dL Urine Ketones Negative (NEGATIVE) mg/dL Urine Blood Negative (NEGATIVE) Urine Nitrate Negative (NEGATIVE) Urine Bilirubin 1+ H (NEGATIVE) Urine Urobilinogen 4.0 (0.2-1.0) mg/dL Ur Leukocyte Esterase Neg (Negative) Zehra/uL Urine WBC (Auto) 2 (0-5) /hpf Urine RBC (Auto) 1 (0-3) /hpf Ur Squamous Epith Cells (0-5) /hpf Amorphous Sediment Rare H (<OCC) /ul Urine Bacteria Occ H (<OCC) Hyaline Casts 3-5 H (0-2) /lpf Urine Eosinophils (NEGATIVE) Urine Osmolality (300-1000) mosm/kg Ur Random Creatinine mg/dL Ur Random Sodium mmol/L Random Vancomycin ug/mL Ur L.pneumophila Ag Negative (NEGATIVE) Mycoplasma pneumon IgM (NEGATIVE) 06/21/18 06/21/18 06/21/18 Range/Units 16:10 16:10 16:10 WBC (4.8-10.8) K/uL RBC (4.40-5.90) Mil/uL Hgb (12.0-18.0) g/dL Hct (35.0-51.0) % MCV (80.0-94.0) fL MCH (27.0-31.0) pg MCHC (33.0-37.0) g/dL RDW (11.5-14.5) % Plt Count (130-400) K/uL MPV (7.2-11.7) fL Neut % (Auto) (50.0-75.0) % Lymph % (Auto) (20.0-40.0) % [place] % (Auto) (0.0-10.0) % Eos % (Auto) (0.0-4.0) % Baso % (Auto) (0.0-2.0) % Neut # (Auto) (1.8-7.0) K/uL Lymph # (Auto) (1.0-4.3) K/uL [place] # (Auto) (0.0-0.8) K/uL Eos # (Auto) (0.0-0.7) K/uL Baso # (Auto) (0.0-0.2) K/uL Neutrophils % (Manual) (50-75) % Band Neutrophils % (0-2) % Lymphocytes % (Manual) (20-40) % Monocytes % (Manual) (0-10) % Metamyelocytes % (0-0) % Toxic Granulation Platelet Estimate (NORMAL) Large Platelets Giant Platelets Hypochromasia (manual) Poikilocytosis (manual Anisocytosis (manual) Microcytosis (manual) Target Cells Tear Drop Cells Ovalocytes [place] Cells Acanthocytes (Spur) Sodium (132-148) mmol/L Potassium (3.6-5.2) mmol/L Chloride (98-107) mmol/L Carbon Dioxide (22-30) mmol/L Anion Gap (10-20) BUN (9-20) mg/dL Creatinine (0.8-1.5) mg/dL Est GFR ( Amer) Est GFR (Non-Af Amer) Random Glucose (75-110) mg/dL Serum Osmolality (272-300) mosm/kg Lactic Acid 4.5 H* (0.7-2.1) mmol/L Uric Acid (3.5-8.5) mg/dL Calcium (8.6-10.4) mg/dl Phosphorus (2.5-4.5) mg/dL Magnesium (1.6-2.3) mg/dL Total Bilirubin (0.2-1.3) mg/dL AST (17-59) U/L ALT (21-72) U/L Alkaline Phosphatase (38-126) U/L Total Creatine Kinase (55-170) U/L Total Protein (6.3-8.3) g/dL Albumin (3.5-5.0) g/dL Globulin (2.2-3.9) gm/dL Albumin/Globulin Ratio (1.0-2.1) Procalcitonin 133.11 H (0.19-0.49) NG/ML Urine Color (YELLOW) Urine Clarity (Clear) Urine pH (5.0-8.0) Ur Specific [place] (1.003-1.030) Urine Protein (NEGATIVE) mg/dL Urine Glucose (UA) (Normal) mg/dL Urine Ketones (NEGATIVE) mg/dL Urine Blood (NEGATIVE) Urine Nitrate (NEGATIVE) Urine Bilirubin (NEGATIVE) Urine Urobilinogen (0.2-1.0) mg/dL Ur Leukocyte Esterase (Negative) Zehra/uL Urine WBC (Auto) (0-5) /hpf Urine RBC (Auto) (0-3) /hpf Ur Squamous Epith Cells (0-5) /hpf Amorphous Sediment (<OCC) /ul Urine Bacteria (<OCC) Hyaline Casts (0-2) /lpf Urine Eosinophils (NEGATIVE) Urine Osmolality (300-1000) mosm/kg Ur Random Creatinine mg/dL Ur Random Sodium mmol/L Random Vancomycin ug/mL Ur L.pneumophila Ag (NEGATIVE) Mycoplasma pneumon IgM Negative (NEGATIVE) Laboratory Results - last 24 hr 06/21/18 06/21/18 06/21/18 16:10 16:10 16:10 WBC RBC Hgb Hct MCV MCH MCHC RDW Plt Count MPV Neut % (Auto) Lymph % (Auto) [place] % (Auto) Eos % (Auto) Baso % (Auto) Neut # (Auto) Lymph # (Auto) [place] # (Auto) Eos # (Auto) Baso # (Auto) Neutrophils % (Manual) Band Neutrophils % Lymphocytes % (Manual) Monocytes % (Manual) Metamyelocytes % Toxic Granulation Platelet Estimate Large Platelets Giant Platelets Hypochromasia (manual) Poikilocytosis (manual Anisocytosis (manual) Microcytosis (manual) Target Cells Tear Drop Cells Ovalocytes [place] Cells Acanthocytes (Spur) Sodium Potassium Chloride Carbon Dioxide Anion Gap BUN Creatinine Est GFR ( Amer) Est GFR (Non-Af Amer) Random Glucose Serum Osmolality Lactic Acid 4.5 H* Uric Acid Calcium Phosphorus Magnesium Total Bilirubin AST ALT Alkaline Phosphatase Total Creatine Kinase Total Protein Albumin Globulin Albumin/Globulin Ratio Procalcitonin 133.11 H Urine Color Urine Clarity Urine pH Ur Specific [place] Urine Protein Urine Glucose (UA) Urine Ketones Urine Blood Urine Nitrate Urine Bilirubin Urine Urobilinogen Ur Leukocyte Esterase Urine WBC (Auto) Urine RBC (Auto) Ur Squamous Epith Cells Amorphous Sediment Urine Bacteria Hyaline Casts Urine Eosinophils Urine Osmolality Ur Random Creatinine Ur Random Sodium Random Vancomycin Ur L.pneumophila Ag Mycoplasma pneumon IgM Negative 06/21/18 06/21/18 06/22/18 16:42 16:42 06:02 WBC 30.6 H D RBC 3.46 L Hgb 9.2 L Hct 28.9 L MCV 83.6 MCH 26.6 L MCHC 31.9 L RDW 14.9 H Plt Count 451 H MPV 9.8 Neut % (Auto) 53.1 Lymph % (Auto) 42.8 H [place] % (Auto) 3.0 Eos % (Auto) 0.2 Baso % (Auto) 0.9 Neut # (Auto) 16.3 H Lymph # (Auto) 13.1 H [place] # (Auto) 0.9 H Eos # (Auto) 0.0 Baso # (Auto) 0.3 H Neutrophils % (Manual) 22 L Band Neutrophils % 43 H* Lymphocytes % (Manual) 24 Monocytes % (Manual) 10 Metamyelocytes % 1 H Toxic Granulation Present Platelet Estimate Normal Large Platelets Present Giant Platelets Present Hypochromasia (manual) Slight Poikilocytosis (manual Moderate Anisocytosis (manual) Moderate Microcytosis (manual) Slight Target Cells Slight Tear Drop Cells Slight Ovalocytes Slight [place] Cells Slight Acanthocytes (Spur) Moderate Sodium Potassium Chloride Carbon Dioxide Anion Gap BUN Creatinine Est GFR ( Amer) Est GFR (Non-Af Amer) Random Glucose Serum Osmolality Lactic Acid Uric Acid Calcium Phosphorus Magnesium Total Bilirubin AST ALT Alkaline Phosphatase Total Creatine Kinase Total Protein Albumin Globulin Albumin/Globulin Ratio Procalcitonin Urine Color Nuris Urine Clarity Hazy Urine pH 5.0 Ur Specific [place] 1.020 Urine Protein 2+ H Urine Glucose (UA) Normal Urine Ketones Negative Urine Blood Negative Urine Nitrate Negative Urine Bilirubin 1+ H Urine Urobilinogen 4.0 Ur Leukocyte Esterase Neg Urine WBC (Auto) 2 Urine RBC (Auto) 1 Ur Squamous Epith Cells Amorphous Sediment Rare H Urine Bacteria Occ H Hyaline Casts 3-5 H Urine Eosinophils Urine Osmolality Ur Random Creatinine Ur Random Sodium Random Vancomycin Ur L.pneumophila Ag Negative Mycoplasma pneumon IgM 06/22/18 06/22/18 06/22/18 06:02 11:36 11:36 WBC RBC Hgb Hct MCV MCH MCHC RDW Plt Count MPV Neut % (Auto) Lymph % (Auto) [place] % (Auto) Eos % (Auto) Baso % (Auto) Neut # (Auto) Lymph # (Auto) [place] # (Auto) Eos # (Auto) Baso # (Auto) Neutrophils % (Manual) Band Neutrophils % Lymphocytes % (Manual) Monocytes % (Manual) Metamyelocytes % Toxic Granulation Platelet Estimate Large Platelets Giant Platelets Hypochromasia (manual) Poikilocytosis (manual Anisocytosis (manual) Microcytosis (manual) Target Cells Tear Drop Cells Ovalocytes [place] Cells Acanthocytes (Spur) Sodium 135 Potassium 5.7 H Chloride 95 L Carbon Dioxide 26 Anion Gap 20 BUN 64 H Creatinine 2.7 H Est GFR ( Amer) 28 Est GFR (Non-Af Amer) 23 Random Glucose 83 Serum Osmolality 315 H Lactic Acid Uric Acid 10.7 H Calcium 9.4 Phosphorus 7.2 H Magnesium 1.9 Total Bilirubin 0.7 AST 43 ALT 28 Alkaline Phosphatase 88 Total Creatine Kinase 127 Total Protein 6.3 Albumin 3.2 L Globulin 3.1 Albumin/Globulin Ratio 1.0 Procalcitonin Urine Color Urine Clarity Urine pH Ur Specific [place] Urine Protein Urine Glucose (UA) Urine Ketones Urine Blood Urine Nitrate Urine Bilirubin Urine Urobilinogen Ur Leukocyte Esterase Urine WBC (Auto) Urine RBC (Auto) Ur Squamous Epith Cells Amorphous Sediment Urine Bacteria Hyaline Casts Urine Eosinophils Urine Osmolality 424 Ur Random Creatinine 77.4 Ur Random Sodium < 5 Random Vancomycin Ur L.pneumophila Ag Mycoplasma pneumon IgM 06/22/18 06/22/18 06/22/18 11:36 13:42 13:42 WBC RBC Hgb Hct MCV MCH MCHC RDW Plt Count MPV Neut % (Auto) Lymph % (Auto) [place] % (Auto) Eos % (Auto) Baso % (Auto) Neut # (Auto) Lymph # (Auto) [place] # (Auto) Eos # (Auto) Baso # (Auto) Neutrophils % (Manual) Band Neutrophils % Lymphocytes % (Manual) Monocytes % (Manual) Metamyelocytes % Toxic Granulation Platelet Estimate Large Platelets Giant Platelets Hypochromasia (manual) Poikilocytosis (manual Anisocytosis (manual) Microcytosis (manual) Target Cells Tear Drop Cells Ovalocytes [place] Cells Acanthocytes (Spur) Sodium Potassium Chloride Carbon Dioxide Anion Gap BUN Creatinine Est GFR ( Amer) Est GFR (Non-Af Amer) Random Glucose Serum Osmolality Lactic Acid Uric Acid Calcium Phosphorus Magnesium Total Bilirubin AST ALT Alkaline Phosphatase Total Creatine Kinase Total Protein Albumin Globulin Albumin/Globulin Ratio Procalcitonin Urine Color Nuris Urine Clarity Hazy Urine pH 5.0 Ur Specific [place] 1.021 Urine Protein 1+ H Urine Glucose (UA) Normal Urine Ketones Negative Urine Blood Negative Urine Nitrate Negative Urine Bilirubin Negative Urine Urobilinogen Normal Ur Leukocyte Esterase Neg Urine WBC (Auto) 7 H Urine RBC (Auto) 3 Ur Squamous Epith Cells < 1 Amorphous Sediment Urine Bacteria Rare Hyaline Casts Urine Eosinophils Negative Urine Osmolality Ur Random Creatinine Ur Random Sodium Random Vancomycin 11.5 Ur L.pneumophila Ag Mycoplasma pneumon IgM Radiology Impressions: Radiology Impressions Chest X-Ray 06/21/18 17:16 IMPRESSION: Left perihilar as well as right infrahilar opacities suspected to represent pneumonia. Recommend continued close interval follow-up. Enlargement of the cardiomediastinal silhouette. Renal Ultrasound 06/22/18 10:37 IMPRESSION: Bilateral simple renal cortical cyst. No evidence of hydronephrosis. EKG/Cardiology Studies: Cardiology / EKG Studies 06/22/18 10:36 EKG [ELECTROCARDIOGRAM] Routine Comment: Mode Of Transportation: Reason For Exam: elevated K Review of Systems - Review of Systems Review of Systems: 12 point ROS obtained and noted in HPI Critical Care Progress Note - Nutrition Nutrition: Nutrition Category Date Time Status Heart Healthy Diet [DIET] Diets 06/21/18 Breakfast Active Assessment/Plan - Assessment and Plan (Free Text) Assessment: Patient is a 73 yo male with PMH of HTN and APL admitted to hospital for shortness of breath. Recently discharged to [facility] after tx of cellulitis. 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 (has oncology appointment on July 11) Renal Elevated Cr- nephro consult and heme/onc consult recs appreciated- possibly from sepsis Electrolyte potassium- D50 with 5 units of insulin; 1x Calcium gluconate NS @ 150mls/hr Repeat CMP in AM ID Meets sepsis criteria w/ elevated lactate; Meropenem/Linezolid; DVT ppx: Heparin GI ppx: Protonix <ClivefRusty M - Last Filed: 06/22/18 19:15> CCU Objective - Vital Signs / Intake & Output Vital Signs (Last 4 hours): Vital Signs Temp Pulse Resp BP Pulse Ox 06/22/18 18:16 97 H 15 118/65 98 06/22/18 17:16 102 H 18 120/64 96 06/22/18 17:00 100 H 17 97 06/22/18 16:16 120/60 06/22/18 16:00 98.0 F 102 H 16 97 06/22/18 15:16 121/70 Intake and Output (Last 8hrs): Intake & Output 06/22/18 06/22/18 06/22/18 06:59 14:59 22:59 Intake Total 150 1400.1 441.7 Output Total 1503 783 87 Balance -1353 617.1 354.7 Weight 153 lb 9 oz 153 lb 9 oz Intake: Intake, IV Amount 50 1000.1 441.7 Right Forearm 50 Right Medial Port 200.1 66.7 Internal Jugular Right Proximal Port 800 375 Internal Jugular Oral 100 400 Output: Gastric Amount 1300 450 Right Nares 1300 450 Urine 200 333 87 Straight 200 Urethral ([place]) 333 87 Emesis 3 Other: # Voids Urine, Voided 0 - Medications Active Medications: Active Medications Generic Name Dose Route Start Last Admin Trade Name Freq PRN Reason Stop Dose Admin Albuterol/Ipratropium 3 ml 06/21/18 20:00 06/22/18 13:11 Duoneb 3 Mg/0.5 Mg (3 Ml) Ud INH 3 ml RQ6 LAURA Administration Clotrimazole 0 gm 06/21/18 18:00 06/22/18 18:28 Lotrimin 1% TOP 1 appl BID LAURA Administration Emollient Ointment 5 gm 06/21/18 14:28 Vaseline Oint TOP Q6H PRN Dry skin Gabapentin 300 mg 06/21/18 18:15 06/22/18 18:29 Neurontin PO 300 mg BID LAURA Administration Guaifenesin 600 mg 06/22/18 19:00 06/22/18 18:29 Mucinex La PO 600 mg Q12H LAURA Administration Heparin Sodium (Porcine) 5,000 units 06/21/18 22:00 06/22/18 14:47 Heparin SC 5,000 units Q8H LAURA Administration Sodium Chloride 1,000 mls @ 150 mls/hr 06/22/18 10:27 06/22/18 18:28 Sodium Chloride 0.9% IV 150 mls/hr .Q6H40M LAURA Administration Linezolid 600 mg in 300 mls @ 200 mls/hr 06/22/18 14:00 06/22/18 14:46 Zyvox 600mg/300ml D5w IVPB 200 mls/hr Q12H LAURA Administration Protocol Meropenem 500 mg/ Sodium 100 mls @ 100 mls/hr 06/22/18 16:00 06/22/18 16:30 Chloride IVPB 100 mls/hr Q12H LAURA Administration Protocol Pantoprazole Sodium 40 mg 06/21/18 16:15 06/22/18 10:56 Protonix Ec Tab PO 40 mg DAILY LAURA Administration - Patient Studies Lab Studies: Microbiology Studies 06/21/18 11:45 Gram Stain - Final Sputum 06/21/18 14:26 MRSA Culture (Admit) - Final Naris MRSA NOT DETECTED 06/21/18 10:50 Blood Culture - Preliminary Blood NO GROWTH AFTER 24 HOURS 06/21/18 10:35 Blood Culture - Preliminary Blood NO GROWTH AFTER 24 HOURS 06/21/18 16:42 Urine Culture - Final Urine No Growth (<1,000 CFU/ML) Lab Studies 06/22/18 06/22/18 06/22/18 Range/Units 16:28 13:42 13:42 WBC (4.8-10.8) K/uL RBC (4.40-5.90) Mil/uL Hgb (12.0-18.0) g/dL Hct (35.0-51.0) % MCV (80.0-94.0) fL MCH (27.0-31.0) pg MCHC (33.0-37.0) g/dL RDW (11.5-14.5) % Plt Count (130-400) K/uL MPV (7.2-11.7) fL Neut % (Auto) (50.0-75.0) % Lymph % (Auto) (20.0-40.0) % [place] % (Auto) (0.0-10.0) % Eos % (Auto) (0.0-4.0) % Baso % (Auto) (0.0-2.0) % Neut # (Auto) (1.8-7.0) K/uL Lymph # (Auto) (1.0-4.3) K/uL [place] # (Auto) (0.0-0.8) K/uL Eos # (Auto) (0.0-0.7) K/uL Baso # (Auto) (0.0-0.2) K/uL Neutrophils % (Manual) (50-75) % Band Neutrophils % (0-2) % Lymphocytes % (Manual) (20-40) % Monocytes % (Manual) (0-10) % Metamyelocytes % (0-0) % Toxic Granulation Platelet Estimate (NORMAL) Large Platelets Giant Platelets Hypochromasia (manual) Poikilocytosis (manual Anisocytosis (manual) Microcytosis (manual) Target Cells Tear Drop Cells Ovalocytes [place] Cells Acanthocytes (Spur) Sodium 138 (132-148) mmol/L Potassium 4.9 (3.6-5.2) mmol/L Chloride 100 (98-107) mmol/L Carbon Dioxide 25 (22-30) mmol/L Anion Gap 18 (10-20) BUN 68 H (9-20) mg/dL Creatinine 2.9 H (0.8-1.5) mg/dL Est GFR ( Amer) 26 Est GFR (Non-Af Amer) 21 Random Glucose 137 H D (75-110) mg/dL Serum Osmolality (272-300) mosm/kg Uric Acid (3.5-8.5) mg/dL Calcium 9.6 (8.6-10.4) mg/dl Phosphorus (2.5-4.5) mg/dL Magnesium (1.6-2.3) mg/dL Total Bilirubin 0.6 (0.2-1.3) mg/dL AST 36 (17-59) U/L ALT 24 (21-72) U/L Alkaline Phosphatase 76 (38-126) U/L Total Creatine Kinase (55-170) U/L Total Protein 6.0 L (6.3-8.3) g/dL Albumin 3.1 L (3.5-5.0) g/dL Globulin 2.9 (2.2-3.9) gm/dL Albumin/Globulin Ratio 1.1 (1.0-2.1) Urine Color (YELLOW) Urine Clarity (Clear) Urine pH (5.0-8.0) Ur Specific [place] (1.003-1.030) Urine Protein (NEGATIVE) mg/dL Urine Glucose (UA) (Normal) mg/dL Urine Ketones (NEGATIVE) mg/dL Urine Blood (NEGATIVE) Urine Nitrate (NEGATIVE) Urine Bilirubin (NEGATIVE) Urine Urobilinogen (0.2-1.0) mg/dL Ur Leukocyte Esterase (Negative) Zehra/uL Urine WBC (Auto) (0-5) /hpf Urine RBC (Auto) (0-3) /hpf Ur Squamous Epith Cells (0-5) /hpf Urine Bacteria (<OCC) Urine Eosinophils Negative (NEGATIVE) Urine Osmolality (300-1000) mosm/kg Ur Random Creatinine mg/dL Ur Random Sodium mmol/L Random Vancomycin 11.5 ug/mL 06/22/18 06/22/18 06/22/18 Range/Units 11:36 11:36 11:36 WBC (4.8-10.8) K/uL RBC (4.40-5.90) Mil/uL Hgb (12.0-18.0) g/dL Hct (35.0-51.0) % MCV (80.0-94.0) fL MCH (27.0-31.0) pg MCHC (33.0-37.0) g/dL RDW (11.5-14.5) % Plt Count (130-400) K/uL MPV (7.2-11.7) fL Neut % (Auto) (50.0-75.0) % Lymph % (Auto) (20.0-40.0) % [place] % (Auto) (0.0-10.0) % Eos % (Auto) (0.0-4.0) % Baso % (Auto) (0.0-2.0) % Neut # (Auto) (1.8-7.0) K/uL Lymph # (Auto) (1.0-4.3) K/uL [place] # (Auto) (0.0-0.8) K/uL Eos # (Auto) (0.0-0.7) K/uL Baso # (Auto) (0.0-0.2) K/uL Neutrophils % (Manual) (50-75) % Band Neutrophils % (0-2) % Lymphocytes % (Manual) (20-40) % Monocytes % (Manual) (0-10) % Metamyelocytes % (0-0) % Toxic Granulation Platelet Estimate (NORMAL) Large Platelets Giant Platelets Hypochromasia (manual) Poikilocytosis (manual Anisocytosis (manual) Microcytosis (manual) Target Cells Tear Drop Cells Ovalocytes [place] Cells Acanthocytes (Spur) Sodium (132-148) mmol/L Potassium (3.6-5.2) mmol/L Chloride (98-107) mmol/L Carbon Dioxide (22-30) mmol/L Anion Gap (10-20) BUN (9-20) mg/dL Creatinine (0.8-1.5) mg/dL Est GFR ( Amer) Est GFR (Non-Af Amer) Random Glucose (75-110) mg/dL Serum Osmolality 315 H (272-300) mosm/kg Uric Acid (3.5-8.5) mg/dL Calcium (8.6-10.4) mg/dl Phosphorus (2.5-4.5) mg/dL Magnesium (1.6-2.3) mg/dL Total Bilirubin (0.2-1.3) mg/dL AST (17-59) U/L ALT (21-72) U/L Alkaline Phosphatase (38-126) U/L Total Creatine Kinase (55-170) U/L Total Protein (6.3-8.3) g/dL Albumin (3.5-5.0) g/dL Globulin (2.2-3.9) gm/dL Albumin/Globulin Ratio (1.0-2.1) Urine Color Nuris (YELLOW) Urine Clarity Hazy (Clear) Urine pH 5.0 (5.0-8.0) Ur Specific [place] 1.021 (1.003-1.030) Urine Protein 1+ H (NEGATIVE) mg/dL Urine Glucose (UA) Normal (Normal) mg/dL Urine Ketones Negative (NEGATIVE) mg/dL Urine Blood Negative (NEGATIVE) Urine Nitrate Negative (NEGATIVE) Urine Bilirubin Negative (NEGATIVE) Urine Urobilinogen Normal (0.2-1.0) mg/dL Ur Leukocyte Esterase Neg (Negative) Zehra/uL Urine WBC (Auto) 7 H (0-5) /hpf Urine RBC (Auto) 3 (0-3) /hpf Ur Squamous Epith Cells < 1 (0-5) /hpf Urine Bacteria Rare (<OCC) Urine Eosinophils (NEGATIVE) Urine Osmolality 424 (300-1000) mosm/kg Ur Random Creatinine 77.4 mg/dL Ur Random Sodium < 5 mmol/L Random Vancomycin ug/mL 06/22/18 06/22/18 Range/Units 06:02 06:02 WBC 30.6 H D (4.8-10.8) K/uL RBC 3.46 L (4.40-5.90) Mil/uL Hgb 9.2 L (12.0-18.0) g/dL Hct 28.9 L (35.0-51.0) % MCV 83.6 (80.0-94.0) fL MCH 26.6 L (27.0-31.0) pg MCHC 31.9 L (33.0-37.0) g/dL RDW 14.9 H (11.5-14.5) % Plt Count 451 H (130-400) K/uL MPV 9.8 (7.2-11.7) fL Neut % (Auto) 53.1 (50.0-75.0) % Lymph % (Auto) 42.8 H (20.0-40.0) % [place] % (Auto) 3.0 (0.0-10.0) % Eos % (Auto) 0.2 (0.0-4.0) % Baso % (Auto) 0.9 (0.0-2.0) % Neut # (Auto) 16.3 H (1.8-7.0) K/uL Lymph # (Auto) 13.1 H (1.0-4.3) K/uL [place] # (Auto) 0.9 H (0.0-0.8) K/uL Eos # (Auto) 0.0 (0.0-0.7) K/uL Baso # (Auto) 0.3 H (0.0-0.2) K/uL Neutrophils % (Manual) 22 L (50-75) % Band Neutrophils % 43 H* (0-2) % Lymphocytes % (Manual) 24 (20-40) % Monocytes % (Manual) 10 (0-10) % Metamyelocytes % 1 H (0-0) % Toxic Granulation Present Platelet Estimate Normal (NORMAL) Large Platelets Present Giant Platelets Present Hypochromasia (manual) Slight Poikilocytosis (manual Moderate Anisocytosis (manual) Moderate Microcytosis (manual) Slight Target Cells Slight Tear Drop Cells Slight Ovalocytes Slight [place] Cells Slight Acanthocytes (Spur) Moderate Sodium 135 (132-148) mmol/L Potassium 5.7 H (3.6-5.2) mmol/L Chloride 95 L (98-107) mmol/L Carbon Dioxide 26 (22-30) mmol/L Anion Gap 20 (10-20) BUN 64 H (9-20) mg/dL Creatinine 2.7 H (0.8-1.5) mg/dL Est GFR ( Amer) 28 Est GFR (Non-Af Amer) 23 Random Glucose 83 (75-110) mg/dL Serum Osmolality (272-300) mosm/kg Uric Acid 10.7 H (3.5-8.5) mg/dL Calcium 9.4 (8.6-10.4) mg/dl Phosphorus 7.2 H (2.5-4.5) mg/dL Magnesium 1.9 (1.6-2.3) mg/dL Total Bilirubin 0.7 (0.2-1.3) mg/dL AST 43 (17-59) U/L ALT 28 (21-72) U/L Alkaline Phosphatase 88 (38-126) U/L Total Creatine Kinase 127 (55-170) U/L Total Protein 6.3 (6.3-8.3) g/dL Albumin 3.2 L (3.5-5.0) g/dL Globulin 3.1 (2.2-3.9) gm/dL Albumin/Globulin Ratio 1.0 (1.0-2.1) Urine Color (YELLOW) Urine Clarity (Clear) Urine pH (5.0-8.0) Ur Specific [place] (1.003-1.030) Urine Protein (NEGATIVE) mg/dL Urine Glucose (UA) (Normal) mg/dL Urine Ketones (NEGATIVE) mg/dL Urine Blood (NEGATIVE) Urine Nitrate (NEGATIVE) Urine Bilirubin (NEGATIVE) Urine Urobilinogen (0.2-1.0) mg/dL Ur Leukocyte Esterase (Negative) Zehra/uL Urine WBC (Auto) (0-5) /hpf Urine RBC (Auto) (0-3) /hpf Ur Squamous Epith Cells (0-5) /hpf Urine Bacteria (<OCC) Urine Eosinophils (NEGATIVE) Urine Osmolality (300-1000) mosm/kg Ur Random Creatinine mg/dL Ur Random Sodium mmol/L Random Vancomycin ug/mL Laboratory Results - last 24 hr 06/22/18 06/22/18 06/22/18 06:02 06:02 11:36 WBC 30.6 H D RBC 3.46 L Hgb 9.2 L Hct 28.9 L MCV 83.6 MCH 26.6 L MCHC 31.9 L RDW 14.9 H Plt Count 451 H MPV 9.8 Neut % (Auto) 53.1 Lymph % (Auto) 42.8 H [place] % (Auto) 3.0 Eos % (Auto) 0.2 Baso % (Auto) 0.9 Neut # (Auto) 16.3 H Lymph # (Auto) 13.1 H [place] # (Auto) 0.9 H Eos # (Auto) 0.0 Baso # (Auto) 0.3 H Neutrophils % (Manual) 22 L Band Neutrophils % 43 H* Lymphocytes % (Manual) 24 Monocytes % (Manual) 10 Metamyelocytes % 1 H Toxic Granulation Present Platelet Estimate Normal Large Platelets Present Giant Platelets Present Hypochromasia (manual) Slight Poikilocytosis (manual Moderate Anisocytosis (manual) Moderate Microcytosis (manual) Slight Target Cells Slight Tear Drop Cells Slight Ovalocytes Slight [place] Cells Slight Acanthocytes (Spur) Moderate Sodium 135 Potassium 5.7 H Chloride 95 L Carbon Dioxide 26 Anion Gap 20 BUN 64 H Creatinine 2.7 H Est GFR ( Amer) 28 Est GFR (Non-Af Amer) 23 Random Glucose 83 Serum Osmolality 315 H Uric Acid 10.7 H Calcium 9.4 Phosphorus 7.2 H Magnesium 1.9 Total Bilirubin 0.7 AST 43 ALT 28 Alkaline Phosphatase 88 Total Creatine Kinase 127 Total Protein 6.3 Albumin 3.2 L Globulin 3.1 Albumin/Globulin Ratio 1.0 Urine Color Urine Clarity Urine pH Ur Specific [place] Urine Protein Urine Glucose (UA) Urine Ketones Urine Blood Urine Nitrate Urine Bilirubin Urine Urobilinogen Ur Leukocyte Esterase Urine WBC (Auto) Urine RBC (Auto) Ur Squamous Epith Cells Urine Bacteria Urine Eosinophils Urine Osmolality Ur Random Creatinine Ur Random Sodium Random Vancomycin 06/22/18 06/22/18 06/22/18 11:36 11:36 13:42 WBC RBC Hgb Hct MCV MCH MCHC RDW Plt Count MPV Neut % (Auto) Lymph % (Auto) [place] % (Auto) Eos % (Auto) Baso % (Auto) Neut # (Auto) Lymph # (Auto) [place] # (Auto) Eos # (Auto) Baso # (Auto) Neutrophils % (Manual) Band Neutrophils % Lymphocytes % (Manual) Monocytes % (Manual) Metamyelocytes % Toxic Granulation Platelet Estimate Large Platelets Giant Platelets Hypochromasia (manual) Poikilocytosis (manual Anisocytosis (manual) Microcytosis (manual) Target Cells Tear Drop Cells Ovalocytes [place] Cells Acanthocytes (Spur) Sodium Potassium Chloride Carbon Dioxide Anion Gap BUN Creatinine Est GFR ( Amer) Est GFR (Non-Af Amer) Random Glucose Serum Osmolality Uric Acid Calcium Phosphorus Magnesium Total Bilirubin AST ALT Alkaline Phosphatase Total Creatine Kinase Total Protein Albumin Globulin Albumin/Globulin Ratio Urine Color Nuris Urine Clarity Hazy Urine pH 5.0 Ur Specific [place] 1.021 Urine Protein 1+ H Urine Glucose (UA) Normal Urine Ketones Negative Urine Blood Negative Urine Nitrate Negative Urine Bilirubin Negative Urine Urobilinogen Normal Ur Leukocyte Esterase Neg Urine WBC (Auto) 7 H Urine RBC (Auto) 3 Ur Squamous Epith Cells < 1 Urine Bacteria Rare Urine Eosinophils Urine Osmolality 424 Ur Random Creatinine 77.4 Ur Random Sodium < 5 Random Vancomycin 11.5 06/22/18 06/22/18 13:42 16:28 WBC RBC Hgb Hct MCV MCH MCHC RDW Plt Count MPV Neut % (Auto) Lymph % (Auto) [place] % (Auto) Eos % (Auto) Baso % (Auto) Neut # (Auto) Lymph # (Auto) [place] # (Auto) Eos # (Auto) Baso # (Auto) Neutrophils % (Manual) Band Neutrophils % Lymphocytes % (Manual) Monocytes % (Manual) Metamyelocytes % Toxic Granulation Platelet Estimate Large Platelets Giant Platelets Hypochromasia (manual) Poikilocytosis (manual Anisocytosis (manual) Microcytosis (manual) Target Cells Tear Drop Cells Ovalocytes [place] Cells Acanthocytes (Spur) Sodium 138 Potassium 4.9 Chloride 100 Carbon Dioxide 25 Anion Gap 18 BUN 68 H Creatinine 2.9 H Est GFR ( Amer) 26 Est GFR (Non-Af Amer) 21 Random Glucose 137 H D Serum Osmolality Uric Acid Calcium 9.6 Phosphorus Magnesium Total Bilirubin 0.6 AST 36 ALT 24 Alkaline Phosphatase 76 Total Creatine Kinase Total Protein 6.0 L Albumin 3.1 L Globulin 2.9 Albumin/Globulin Ratio 1.1 Urine Color Urine Clarity Urine pH Ur Specific [place] Urine Protein Urine Glucose (UA) Urine Ketones Urine Blood Urine Nitrate Urine Bilirubin Urine Urobilinogen Ur Leukocyte Esterase Urine WBC (Auto) Urine RBC (Auto) Ur Squamous Epith Cells Urine Bacteria Urine Eosinophils Negative Urine Osmolality Ur Random Creatinine Ur Random Sodium Random Vancomycin Radiology Impressions: Radiology Impressions Renal Ultrasound 06/22/18 10:37 IMPRESSION: Bilateral simple renal cortical cyst. No evidence of hydronephrosis. EKG/Cardiology Studies: Cardiology / EKG Studies 06/22/18 10:36 EKG [ELECTROCARDIOGRAM] Routine Comment: Mode Of Transportation: Reason For Exam: elevated K Critical Care Progress Note - Nutrition Nutrition: Nutrition Category Date Time Status Heart Healthy Diet [DIET] Diets 06/21/18 Breakfast Active Attending/Attestation - Attestation I have personally seen and examined this patient.: Yes I have fully participated in the care of the patient.: Yes I have reviewed all pertinent clinical information: Yes Notes (Text): 06/22/18 19:14 Today: May The Patient was seen and examined at the bedside, Medical records reviewed, and management issues were discussed and formulated with the house staff. I have reviewed all the relevant clinical, laboratory, hemodynamic, radiographic data and medications Events reviewed Pain issues, skin care, head of the bed elevation, glycemic control were addressed. Agree with above resident's assessment and treatment plans of care as transcribed in Dr. Guadalupe's note.
[2018-06-22] MEDS: Linezolid 600 mg in D5W 300 ml 600 MG/300 ML BAG IVPB SCH (14:46)
[2018-06-22] MEDS: Meropenem 500 MG in Sodium Chloride 0.9% 100 ML IVPB SCH (16:30)
[2018-06-22 16:50] LABS: ALB/GLOB RATIO 1.1 (1.0-2.1); ALBUMIN 3.1 g/dL (3.5-5.0); CALCIUM 9.6 mg/dl (8.6-10.4)
[2018-06-22] MEDS: guaiFENesin 600 mg ER Tab PO SCH (18:29)
--- NOTE | 2018-06-22 20:37 | CP.PCM.PN ---
Subjective - Date & Time of Evaluation Date of Evaluation: 06/22/18 Time of Evaluation: 20:37 - Subjective Subjective: CHIEF COMPLAINTS TODAY : afebrile Patient appears to be in no acute distress. Patient skin appears much improved. FAMILY AT BEDSIDE. Reports rash has been for 2 years but got worse recently. ROS. HEENT : N. Resp : No cough, wheezing ,pleuritic CP ,or hemoptysis Cardio : No anginal CP, PND, orthopnea, palpitation GI : No abd.pain, n/v ,diarrhea or GI bleeding . DIRECTOR OF CLINICAL EDUCATION : No headache, vertigo, focal deficit. Musculoskel : No joint swelling , Derm rash all over the body Psych : Normal affect. Ext : No swelling ,calf pain PE. Pt. is alert awake in no distress. V.S As noted in the chart Head ,ear nose,throat and eyes : Normal. Neck : Supple with normal carotids. Lungs: DECREASED BREATH SOUNDS AT THE BASES, FEW RHONCHI RIGHT-SIDED. Heart : S1 & S2 normal with S4. No murmur. Abd : Soft non tender with normal bowel sounds. Neuro : Moves all ext. with no localized deficit. Ext : No edema with intact pulses.Non tender calves Derm : Generalized erythema with exfoliation LABS/RADIOLOGY: wbc INCREASED TO 30,000 CREAT 2.7 Objective - Vital Signs/Intake and Output Vital Signs (last 24 hours): Temp Pulse Resp BP Pulse Ox 98.0 F 97 H 15 136/55 L 99 06/22/18 16:00 06/22/18 19:16 06/22/18 19:16 06/22/18 19:16 06/22/18 19:16 Intake and Output: 06/22/18 06/23/18 18:59 06:59 Intake Total 2091.8 150 Output Total 990 60 Balance 1101.8 90 - Medications Medications: Current Medications Albuterol/Ipratropium (Duoneb 3 Mg/0.5 Mg (3 Ml) Ud) 3 ml INH RQ6 [facility] Last Admin: 06/22/18 13:11 Dose: 3 ml Clotrimazole (Lotrimin 1%) 0 gm TOP BID [facility] Last Admin: 06/22/18 18:28 Dose: 1 appl Emollient Ointment (Vaseline Oint) 5 gm TOP Q6H PRN PRN Reason: Dry skin Gabapentin (Neurontin) 300 mg PO BID [facility] Last Admin: 06/22/18 18:29 Dose: 300 mg Guaifenesin (Mucinex La) 600 mg PO Q12H [facility] Last Admin: 06/22/18 18:29 Dose: 600 mg Heparin Sodium (Porcine) (Heparin) 5,000 units SC Q8H [facility] Last Admin: 06/22/18 14:47 Dose: 5,000 units Sodium Chloride (Sodium Chloride 0.9%) 1,000 mls @ 150 mls/hr IV .Q6H40M [facility] Last Admin: 06/22/18 18:28 Dose: 150 mls/hr Linezolid (Zyvox 600mg/300ml D5w) 600 mg in 300 mls @ 200 mls/hr IVPB Q12H [facility]; Protocol Last Admin: 06/22/18 14:46 Dose: 200 mls/hr Meropenem 500 mg/ Sodium (Chloride) 100 mls @ 100 mls/hr IVPB Q12H [facility]; Prot ocol Last Admin: 06/22/18 16:30 Dose: 100 mls/hr Pantoprazole Sodium (Protonix Ec Tab) 40 mg PO DAILY [facility] Last Admin: 06/22/18 10:56 Dose: 40 mg - Labs Labs: 06/22/18 06:02 06/22/18 16:28 PT 13.5 SECONDS (9.7-12.2) H 06/21/18 10:43 INR 1.2 06/21/18 10:43 APTT 29 SECONDS (21-34) 06/21/18 10:43 Assessment and Plan (1) Pneumonia Status: Acute (2) Leukocytosis Status: Acute (3) Generalized rash Status: Acute (4) APL (acute promyelocytic leukemia) Status: Acute (5) Azotemia Status: Acute - Assessment and Plan (Free Text) Plan: PLAN; DC IV ZOSYN 3.375 GM IVPB Q 8HRLY 06/21/18. DC IV VANCOMYCIN . VANCO STAT RANDOM LEVEL. URINE FOR EOSINOPHILS. START mERREM 500 MG EVERY 12 HOURLY 06/22/18. ADD IV ZYVOX 600 MG EVERY 12 HOURLY 06/22/18 F/U RENAL FUNCTION CLOSELY. NEPHROLOGY CONSULT PER DR MARTIN. F/U CULTURES TO ADJUST ANTIBIOTICS. LOCAL SKIN CARE PER PODIATRY AND WOUND CARE. SPOKE WITH MR BAUTISTA CARROLLDRYING RACK CHANGER CASE DISCUSSED WITH RESIDENT. CONSIDER ONCOLOGY CONSULT WITH DR THOMAS TO [place] FOR ACUTE PROMYELOCYTIC LEUKEMIA. CASE DISCUSSED WITH FAMILY AT BEDSIDE.
--- NOTE | 2018-06-22 20:56 | CP.PCM.PN ---
Subjective - Date & Time of Evaluation Date of Evaluation: 06/22/18 Time of Evaluation: 20:53 - Subjective Subjective: Podiatry Progress Note - Dr. Choi 73 y/o male seen at bedside for bilateral fissuring and scaling of plantar feet. Pt resting at time of visit. Not offering any new pedal complaints. States he gets relief from the creams. Per chart review, no episodes of F/C/N/V. Objective - Vital Signs/Intake and Output Vital Signs (last 24 hours): Temp Pulse Resp BP Pulse Ox 98.0 F 97 H 15 136/55 L 99 06/22/18 16:00 06/22/18 19:16 06/22/18 19:16 06/22/18 19:16 06/22/18 19:16 Intake and Output: 06/22/18 06/23/18 18:59 06:59 Intake Total 2091.8 150 Output Total 990 60 Balance 1101.8 90 - Medications Medications: Current Medications Albuterol/Ipratropium (Duoneb 3 Mg/0.5 Mg (3 Ml) Ud) 3 ml INH RQ6 [facility] Last Admin: 06/22/18 13:11 Dose: 3 ml Clotrimazole (Lotrimin 1%) 0 gm TOP BID [facility] Last Admin: 06/22/18 18:28 Dose: 1 appl Emollient Ointment (Vaseline Oint) 5 gm TOP Q6H PRN PRN Reason: Dry skin Gabapentin (Neurontin) 300 mg PO BID [facility] Last Admin: 06/22/18 18:29 Dose: 300 mg Guaifenesin (Mucinex La) 600 mg PO Q12H [facility] Last Admin: 06/22/18 18:29 Dose: 600 mg Heparin Sodium (Porcine) (Heparin) 5,000 units SC Q8H [facility] Last Admin: 06/22/18 14:47 Dose: 5,000 units Sodium Chloride (Sodium Chloride 0.9%) 1,000 mls @ 150 mls/hr IV .Q6H40M [facility] Last Admin: 06/22/18 18:28 Dose: 150 mls/hr Linezolid (Zyvox 600mg/300ml D5w) 600 mg in 300 mls @ 200 mls/hr IVPB Q12H [facility]; Protocol Last Admin: 06/22/18 14:46 Dose: 200 mls/hr Meropenem 500 mg/ Sodium (Chloride) 100 mls @ 100 mls/hr IVPB Q12H [facility]; Protocol Last Admin: 06/22/18 16:30 Dose: 100 mls/hr Pantoprazole Sodium (Protonix Ec Tab) 40 mg PO DAILY [facility] Last Admin: 06/22/18 10:56 Dose: 40 mg - Labs Labs: 06/22/18 06:02 06/22/18 16:28 PT 13.5 SECONDS (9.7-12.2) H 06/21/18 10:43 INR 1.2 06/21/18 10:43 APTT 29 SECONDS (21-34) 06/21/18 10:43 - Constitutional Appears: Well, Non-toxic, No Acute Distress - Extremities Exam Additional comments: Lower extremity focused exam: VASC: DP/PT pulses palpable 2/4 B/L. CFT <3 seconds to all digits. TG warm to warm. Non-pitting edema noted to bilateral LE NEURO: Gross sensation intact B/L DERM: Severe xerosis + diffuse annular scaling present with fissuring throughout plantar aspect of foot B/L. No drainage, no purulence is noted. Mild diffuse erythema noted to bilateral LE. ORTHO: Mild-moderate tenderness on palpation to fissures and scaling of plantar foot B/L. ROM limited 2/2 edema - Neurological Exam Neurological Exam: Alert, Awake - Psychiatric Exam Psychiatric exam: Normal Affect Assessment and Plan - Assessment and Plan (Free Text) Assessment: 73 y/o male with painful fissures and severe bilateral tinea pedis to plantar feet Plan: Patient seen and evaluated Discussed plan with attending, Dr. Choi Clotrimazole cream applied to B/L lower extremities -to be applied by nursing topically BID Will continue to monitor patient Stable from podiatry standpoint
--- NOTE | 2018-06-22 22:31 | CARD ---
APPROVED REPORT Date of service: 06/21/2018 EKG Measurement Heart [id number] <Conclusion> Sinus tachycardia Possible Left atrial enlargement Borderline ECG
[2018-06-23] MEDS: Albuterol-Ipratrop 3 mg / 0.5 (3 ml) UD INH SCH ×4 (01:45→19:13)
[2018-06-23] MEDS: Linezolid 600 mg in D5W 300 ml 600 MG/300 ML BAG IVPB SCH ×2 (02:06→14:08)
--- NOTE | 2018-06-23 02:23 | CP.PCM.CON ---
History of Present Illness - History of Present Illness History of Present Illness: 73 year old male with a history of HTN, APL s/p chemotherapy at [facility] about 10 years ago, eczema with recent discharge for cellulitis, presenting with aspiration pneumonia The patient was evaluated by me during his last admission for persistent leukocytosis despite antibiotics. Flow cytometery was sent on peripheral blood to rule out a clonal process contributing to the patient leukocytosis. Past medical history: HTN, APL Past surgical history: Colon surgery Family history: Denies hematologic and oncologic problems Social history: Denies tobacco, alcohol, and illicit drug use. Allergies: NKA Review of systems: All remaining review of systems including HEENT, cardiovascular, respiratory, gastrointestinal, genitourinary, musculoskeletal, dermatologic, neurologic, and psychiatric are negative unless mentioned in the HPI. Past Patient History - Past Medical History & Family History Past Medical History?: Yes - Past Social History Smoking Status: Never Smoked - CARDIAC Hx Hypercholesterolemia: Yes Hx Hypertension: Yes - NEUROLOGICAL Hx Transient Ischemic Attacks (TIA): No - HEENT Hx Cataracts: Yes (rehan) - HEMATOLOGICAL/ONCOLOGICAL Hx Blood Disorders: Yes Hx Leukemia: Yes (IN REMISSION) - INTEGUMENTARY Hx Dermatological Problems: Yes Hx Eczema: Yes (ALL OVER BODY) - MUSCULOSKELETAL/RHEUMATOLOGICAL Hx Fractures: No - GASTROINTESTINAL Hx Gastrointestinal Disorders: Yes Hx Bowel Surgery: Yes (2X RESECTION OF 2 LARGE, BENIGN POLYPS) - PSYCHIATRIC Hx Substance Use: No - SURGICAL HISTORY Hx Surgeries: Yes Hx Herniorrhaphy: Yes (RIGHT GROIN) - ANESTHESIA Hx Anesthesia: Yes Hx Anesthesia Reactions: No Hx Malignant Hyperthermia: No Meds Allergies/Adverse Reactions: Allergies Allergy/AdvReac Type Severity Reaction Status Date / Time No Known Allergies Allergy Verified 02/14/17 07:07 - Medications Medications: Current Medications Albuterol/Ipratropium (Duoneb 3 Mg/0.5 Mg (3 Ml) Ud) 3 ml INH RQ6 [facility] Last Admin: 06/23/18 01:45 Dose: 3 ml Clotrimazole (Lotrimin 1%) 0 gm TOP BID [facility] Last Admin: 06/22/18 18:28 Dose: 1 appl Emollient Ointment (Vaseline Oint) 5 gm TOP Q6H PRN PRN Reason: Dry skin Gabapentin (Neurontin) 300 mg PO BID [facility] Last Admin: 06/22/18 18:29 Dose: 300 mg Guaifenesin (Mucinex La) 600 mg PO Q12H [facility] Last Admin: 06/22/18 18:29 Dose: 600 mg Heparin Sodium (Porcine) (Heparin) 5,000 units SC Q8H [facility] Last Admin: 06/22/18 21:31 Dose: 5,000 units Linezolid (Zyvox 600mg/300ml D5w) 600 mg in 300 mls @ 200 mls/hr IVPB Q12H [facility]; Protocol Last Admin: 06/22/18 14:46 Dose: 200 mls/hr Meropenem 500 mg/ Sodium (Chloride) 100 mls @ 100 mls/hr IVPB Q12H [facility]; Protocol Last Admin: 06/22/18 16:30 Dose: 100 mls/hr Sodium Chloride (Sodium Chloride 0.9%) 1,000 mls @ 100 mls/hr IV .Q10H [facility] Last Admin: 06/22/18 22:45 Dose: 100 mls/hr Ondansetron HCl (Zofran Inj) 4 mg IVP Q6 PRN PRN Reason: Nausea/Vomiting Last Admin: 06/22/18 23:01 Dose: 4 mg Pantoprazole Sodium (Protonix Ec Tab) 40 mg PO DAILY [facility] Last Admin: 06/22/18 10:56 Dose: 40 mg Physical Exam - Head Exam Head Exam: ATRAUMATIC - Eye Exam Eye Exam: Normal appearance - ENT Exam ENT Exam: Mucous Membranes Dry - Respiratory Exam Respiratory Exam: NORMAL BREATHING PATTERN - Cardiovascular Exam Cardiovascular Exam: +S1, +S2 - GI/Abdominal Exam GI & Abdominal Exam: Normal Bowel Sounds - Neurological Exam Neurological exam: Altered - Psychiatric Exam Psychiatric exam: Flat Affect - Skin Skin Exam: Warm Results - Vital Signs Recent Vital Signs: Last Vital Signs Temp 98.2 F 06/23/18 00:00 Pulse 95 H 06/23/18 01:00 Resp 17 06/23/18 01:00 BP 141/64 06/23/18 00:17 Pulse Ox 100 06/23/18 01:00 - Labs Result Diagrams: 06/22/18 06:02 06/22/18 16:28 Labs: Laboratory Results - last 24 hr 06/22/18 06/22/18 06/22/18 06:02 06:02 11:36 WBC 30.6 H D RBC 3.46 L Hgb 9.2 L Hct 28.9 L MCV 83.6 MCH 26.6 L MCHC 31.9 L RDW 14.9 H Plt Count 451 H MPV 9.8 Neut % (Auto) 53.1 Lymph % (Auto) 42.8 H [place] % (Auto) 3.0 Eos % (Auto) 0.2 Baso % (Auto) 0.9 Neut # (Auto) 16.3 H Lymph # (Auto) 13.1 H [place] # (Auto) 0.9 H Eos # (Auto) 0.0 Baso # (Auto) 0.3 H Neutrophils % (Manual) 22 L Band Neutrophils % 43 H* Lymphocytes % (Manual) 24 Monocytes % (Manual) 10 Metamyelocytes % 1 H Toxic Granulation Present Platelet Estimate Normal Large Platelets Present Giant Platelets Present Hypochromasia (manual) Slight Poikilocytosis (manual Moderate Anisocytosis (manual) Moderate Microcytosis (manual) Slight Target Cells Slight Tear Drop Cells Slight Ovalocytes Slight [place] Cells Slight Acanthocytes (Spur) Moderate Sodium 135 Potassium 5.7 H Chloride 95 L Carbon Dioxide 26 Anion Gap 20 BUN 64 H Creatinine 2.7 H Est GFR ( Amer) 28 Est GFR (Non-Af Amer) 23 Random Glucose 83 Serum Osmolality 315 H Uric Acid 10.7 H Calcium 9.4 Phosphorus 7.2 H Magnesium 1.9 Total Bilirubin 0.7 AST 43 ALT 28 Alkaline Phosphatase 88 Total Creatine Kinase 127 Total Protein 6.3 Albumin 3.2 L Globulin 3.1 Albumin/Globulin Ratio 1.0 Urine Color Urine Clarity Urine pH Ur Specific [place] Urine Protein Urine Glucose (UA) Urine Ketones Urine Blood Urine Nitrate Urine Bilirubin Urine Urobilinogen Ur Leukocyte Esterase Urine WBC (Auto) Urine RBC (Auto) Ur Squamous Epith Cells Urine Bacteria Urine Eosinophils Urine Osmolality Ur Random Creatinine Ur Random Sodium Random Vancomycin 06/22/18 06/22/18 06/22/18 11:36 11:36 13:42 WBC RBC Hgb Hct MCV MCH MCHC RDW Plt Count MPV Neut % (Auto) Lymph % (Auto) [place] % (Auto) Eos % (Auto) Baso % (Auto) Neut # (Auto) Lymph # (Auto) [place] # (Auto) Eos # (Auto) Baso # (Auto) Neutrophils % (Manual) Band Neutrophils % Lymphocytes % (Manual) Monocytes % (Manual) Metamyelocytes % Toxic Granulation Platelet Estimate Large Platelets Giant Platelets Hypochromasia (manual) Poikilocytosis (manual Anisocytosis (manual) Microcytosis (manual) Target Cells Tear Drop Cells Ovalocytes [place] Cells Acanthocytes (Spur) Sodium Potassium Chloride Carbon Dioxide Anion Gap BUN Creatinine Est GFR ( Amer) Est GFR (Non-Af Amer) Random Glucose Serum Osmolality Uric Acid Calcium Phosphorus Magnesium Total Bilirubin AST ALT Alkaline Phosphatase Total Creatine Kinase Total Protein Albumin Globulin Albumin/Globulin Ratio Urine Color Nuris Urine Clarity Hazy Urine pH 5.0 Ur Specific [place] 1.021 Urine Protein 1+ H Urine Glucose (UA) Normal Urine Ketones Negative Urine Blood Negative Urine Nitrate Negative Urine Bilirubin Negative Urine Urobilinogen Normal Ur Leukocyte Esterase Neg Urine WBC (Auto) 7 H Urine RBC (Auto) 3 Ur Squamous Epith Cells < 1 Urine Bacteria Rare Urine Eosinophils Urine Osmolality 424 Ur Random Creatinine 77.4 Ur Random Sodium < 5 Random Vancomycin 11.5 06/22/18 06/22/18 13:42 16:28 WBC RBC Hgb Hct MCV MCH MCHC RDW Plt Count MPV Neut % (Auto) Lymph % (Auto) [place] % (Auto) Eos % (Auto) Baso % (Auto) Neut # (Auto) Lymph # (Auto) [place] # (Auto) Eos # (Auto) Baso # (Auto) Neutrophils % (Manual) Band Neutrophils % Lymphocytes % (Manual) Monocytes % (Manual) Metamyelocytes % Toxic Granulation Platelet Estimate Large Platelets Giant Platelets Hypochromasia (manual) Poikilocytosis (manual Anisocytosis (manual) Microcytosis (manual) Target Cells Tear Drop Cells Ovalocytes [place] Cells Acanthocytes (Spur) Sodium 138 Potassium 4.9 Chloride 100 Carbon Dioxide 25 Anion Gap 18 BUN 68 H Creatinine 2.9 H Est GFR ( Amer) 26 Est GFR (Non-Af Amer) 21 Random Glucose 137 H D Serum Osmolality Uric Acid Calcium 9.6 Phosphorus Magnesium Total Bilirubin 0.6 AST 36 ALT 24 Alkaline Phosphatase 76 Total Creatine Kinase Total Protein 6.0 L Albumin 3.1 L Globulin 2.9 Albumin/Globulin Ratio 1.1 Urine Color Urine Clarity Urine pH Ur Specific [place] Urine Protein Urine Glucose (UA) Urine Ketones Urine Blood Urine Nitrate Urine Bilirubin Urine Urobilinogen Ur Leukocyte Esterase Urine WBC (Auto) Urine RBC (Auto) Ur Squamous Epith Cells Urine Bacteria Urine Eosinophils Negative Urine Osmolality Ur Random Creatinine Ur Random Sodium Random Vancomycin Assessment & Plan (1) Leukocytosis Assessment and Plan: on antibiotics f/u flow cytometery Status: Acute (2) Anemia Assessment and Plan: anemia of chronic disease Status: Acute (3) APL (acute promyelocytic leukemia) Assessment and Plan: outpatient f/u with primary oncologist Thank you for this interesting consult. Status: Acute
[2018-06-23] MEDS: Meropenem 500 MG in Sodium Chloride 0.9% 100 ML IVPB SCH ×2 (04:06→16:08)
[2018-06-23 05:24] LABS: ABG ALLEN TEST POS; ARTERIAL BLOOD GAS HCO3 26.4 mmol/L (21-28); ARTERIAL BLOOD GAS HEMOGLOBIN 8.9 g/dL (11.7-17.4); ARTERIAL BLOOD GAS O2 SAT 99.9 % (95-98); ARTERIAL BLOOD GAS PCO2 41 mm/Hg (35-45); ARTERIAL BLOOD GAS PH 7.42 (7.35-7.45); ARTERIAL BLOOD GAS PO2 127 mm/Hg (80-100); ARTERIAL BLOOD GAS TCO2 27.9 mmol/L (22-28)
[2018-06-23] MEDS: guaiFENesin 600 mg ER Tab PO SCH ×2 (06:13→18:07)
[2018-06-23 06:23] LABS: BASO # 0.3 K/uL (0.0-0.2); BASO % 1.2 % (0.0-2.0); HEMOGLOBIN 8.6 g/dL (12.0-18.0); LYMPH # 9.5 K/uL (1.0-4.3); LYMPH % 41.1 % (20.0-40.0); MEAN CORPUSCULAR HEMOGLOBIN 26.5 pg (27.0-31.0); MEAN PLATELET VOLUME 9.5 fL (7.2-11.7); MONO # 0.9 K/uL (0.0-0.8); MONO % 3.9 % (0.0-10.0); NEUT # 12.4 K/uL (1.8-7.0); NEUT % 53.8 % (50.0-75.0); NRBC % 0.2 % (0.0-2.0); PLATELET COUNT 384 K/uL (130-400); RBC 3.23 Mil/uL (4.40-5.90); RED CELL DISTRIBUTION WIDTH 14.8 % (11.5-14.5); WHITE BLOOD COUNT 23.1 K/uL (4.8-10.8)
[2018-06-23 06:43] LABS: CALCIUM 9.4 mg/dl (8.6-10.4)
--- NOTE | 2018-06-23 09:15 | RAD ---
Date of service: 06/23/2018 HISTORY: junior, pna COMPARISON: 06/21/2018. FINDINGS: The right IJV line terminates at the cavoatrial junction. The nasogastric tube terminates in the stomach. LUNGS: There is interval improved aeration in the lungs particularly left perihilar region. There is worsening confluent airspace disease in the right lower lobe. PLEURA: Small left pleural effusion. No pneumothorax. CARDIOVASCULAR: The heart is normal in size. No aortic atherosclerotic calcification present. OSSEOUS STRUCTURES: Within normal limits for the patient's age. VISUALIZED UPPER ABDOMEN: Normal. OTHER FINDINGS: There is chronic elevation of the left hemidiaphragm. IMPRESSION: Interval improved aeration in the lungs particularly in the left perihilar region. Small left pleural effusion Worsening confluent airspace disease in the right lower lobe may represent developing pneumonia. Follow-up after medical management is recommended to ensure complete resolution.
[2018-06-23 09:18] LABS: BANDS 36 % (0-2); LYMPHOCYTE 19 % (20-40); METAMYELOCYTE 1 % (0-0); MONOCYTE 13 % (0-10); MYELOCYTE 2 % (0-0); NEUTROPHIL 28 % (50-75); PLATELET ESTIMATE NORMAL (NORMAL); REACTIVE LYMPHOCYTES 1 % (0-0); TOTAL CELLS COUNTED 100
[2018-06-23 09:26] LABS: BURR CELLS MODERATE; HYPOCHROMIC SLIGHT; POIKILOCYTOSIS SLIGHT
[2018-06-23 09:27] LABS: ACANTHOCYTES SLIGHT; LARGE PLATELETS PRESENT; TARGET CELLS SLIGHT; TOXIC GRANULATION PRESENT
[2018-06-23] MEDS: Petrolatum Oint Foilpak (5 gm) TOP PRN ×2 (10:09→18:49)
[2018-06-23] MEDS: Thiamine 100 mg/ml Inj IV SCH ×2 (10:09→18:10)
[2018-06-23] MEDS: Pantoprazole 40 mg EC Tab PO SCH (10:09)
[2018-06-23] MEDS: Clotrimazole 1% Cream(30 gm) TOP SCH ×2 (10:30→18:35)
--- NOTE | 2018-06-23 11:12 | CP.CCUPN ---
<Kevin Guadalupe - Last Filed: 06/23/18 11:32> CCU Subjective - Physician Review Events Since Last Encounter (Free Text): multiple episodes of vomiting overnight. NG tube placed back with approx ~1000ml drained. Subjective (Free Text): 06/22/18 14:24 PGY-1 Critical Care Progress Note for Dr. Llanes's service Patient seen and examined at bedside. Patient offers no acute complaints. Patient denies fevers, chills, chest pain, sob, n/v, constipation or diarrhea, and dysuria. Critical Care Time Spent (in minutes): 35 CCU Objective - Vital Signs / Intake & Output Vital Signs (Last 4 hours): Vital Signs Resp 06/23/18 10:57 20 06/23/18 08:26 20 Intake and Output (Last 8hrs): Intake & Output 06/22/18 06/23/18 06/23/18 22:59 06:59 14:59 Intake Total 1591.7 1000 Output Total 407 320 Balance 1184.7 680 Weight 156 lb Intake: Intake, IV Amount 1291.7 1000 Right Medial Port 66.7 Internal Jugular Right Proximal Port 1225 1000 Internal Jugular Oral 300 Output: Urine 407 320 Urethral ([place]) 407 320 Other: # Bowel Movements 0 0 - Physical Exam Head: Positive for: Atraumatic, Normocephalic Pupils: Positive for: PERRL Mouth: Positive for: Dry Nose (Internal): Positive for: Other (NG tube in place) Neck: Positive for: Other (TLC in left IJ) Respiratory/Chest: Positive for: Rhonchi. Negative for: Clear to Auscultation, Respiratory Distress, Accessory Muscle Use Cardiovascular: Positive for: Normal S1, S2, Tachycardic. Negative for: Murmurs Abdomen: Positive for: Normal Bowel Sounds. Negative for: Tenderness, Distention, Peritoneal Signs Upper Extremity: Positive for: Normal Inspection, NORMAL PULSES. Negative for: Cyanosis, Edema Lower Extremity: Positive for: Normal Inspection, NORMAL PULSES. Negative for: Edema, CALF TENDERNESS Neurological: Positive for: GCS=15 Skin: Positive for: Warm, Dry, Other (chronic skin peeling and blistering). Negative for: Rashes, Normal Color Psychiatric: Positive for: Alert, Oriented x 3 - Medications Active Medications: Active Medications Generic Name Dose Route Start Last Admin Trade Name Freq PRN Reason Stop Dose Admin Albuterol/Ipratropium 3 ml 06/21/18 20:00 06/23/18 07:42 Duoneb 3 Mg/0.5 Mg (3 Ml) Ud INH 3 ml RQ6 LAURA Administration Allopurinol 100 mg 06/23/18 10:00 Zyloprim PO DAILY [facility] Clotrimazole 0 gm 06/21/18 18:00 06/23/18 10:30 Lotrimin 1% TOP 1 appl BID LAURA Administration Emollient Ointment 5 gm 06/21/18 14:28 06/23/18 10:09 Vaseline Oint TOP 5 gm Q6H PRN Administration Dry skin Gabapentin 300 mg 06/21/18 18:15 06/23/18 10:09 Neurontin PO 300 mg BID LAURA Administration Guaifenesin 600 mg 06/22/18 19:00 06/23/18 06:13 Mucinex La PO Not Given Q12H [facility] Heparin Sodium (Porcine) 5,000 units 06/21/18 22:00 06/23/18 05:46 Heparin SC 5,000 units Q8H LAURA Administration Linezolid 600 mg in 300 mls @ 200 mls/hr 06/22/18 14:00 06/23/18 02:06 Zyvox 600mg/300ml D5w IVPB 200 mls/hr Q12H [facility] Administration Protocol Meropenem 500 mg/ Sodium 100 mls @ 100 mls/hr 06/22/18 16:00 06/23/18 04:06 Chloride IVPB 100 mls/hr Q12H [facility] Administration Protocol Sodium Chloride 1,000 mls @ 100 mls/hr 06/22/18 22:10 06/22/18 22:45 Sodium Chloride 0.9% IV 100 mls/hr .Q10H [facility]A Administration Folic Acid 1 mg/ Thiamine HCl 1,011.2 mls @ 42 mls/hr 06/23/18 09:45 100 mg/ Multivitamins/Vitamin IV C 10 ml/ Dextrose .Q24H [facility] Ondansetron HCl 4 mg 06/22/18 22:10 06/22/18 23:01 Zofran Inj IVP 4 mg Q6 PRN Administration Nausea/Vomiting Pantoprazole Sodium 40 mg 06/21/18 16:15 06/23/18 10:09 Protonix Ec Tab PO 40 mg DAILY LAURA Administration Thiamine HCl 200 mg 06/23/18 09:45 06/23/18 10:09 Vitamin B1 Inj IV 06/24/18 17:46 200 mg Q8H [facility]A Administration - Patient Studies Lab Studies: Microbiology Studies 06/21/18 10:50 Blood Culture - Preliminary Blood NO GROWTH AFTER 48 HOURS 06/21/18 10:35 Blood Culture - Preliminary Blood NO GROWTH AFTER 48 HOURS 06/22/18 11:36 Urine Culture - Final Urine,Catheterized No Growth (<1,000 CFU/ML) 06/21/18 11:45 Gram Stain - Final Sputum Sputum Culture - Preliminary Gram Negative Constantin 06/21/18 14:26 MRSA Culture (Admit) - Final Naris MRSA NOT DETECTED 06/21/18 16:42 Urine Culture - Final Urine No Growth (<1,000 CFU/ML) Lab Studies 06/23/18 06/23/18 06/23/18 Range/Units 07:29 06:10 06:10 WBC 23.1 H (4.8-10.8) K/uL RBC 3.23 L (4.40-5.90) Mil/uL Hgb 8.6 L (12.0-18.0) g/dL Hct 26.8 L (35.0-51.0) % MCV 83.0 (80.0-94.0) fL MCH 26.5 L (27.0-31.0) pg MCHC 32.0 L (33.0-37.0) g/dL RDW 14.8 H (11.5-14.5) % Plt Count 384 (130-400) K/uL MPV 9.5 (7.2-11.7) fL Neut % (Auto) 53.8 (50.0-75.0) % Lymph % (Auto) 41.1 H (20.0-40.0) % Reagan % (Auto) 3.9 (0.0-10.0) % Eos % (Auto) 0.0 (0.0-4.0) % Baso % (Auto) 1.2 (0.0-2.0) % Neut # (Auto) 12.4 H (1.8-7.0) K/uL Lymph # (Auto) 9.5 H (1.0-4.3) K/uL Reagan # (Auto) 0.9 H (0.0-0.8) K/uL Eos # (Auto) 0.0 (0.0-0.7) K/uL Baso # (Auto) 0.3 H (0.0-0.2) K/uL Neutrophils % (Manual) 28 L (50-75) % Band Neutrophils % 36 H* (0-2) % Lymphocytes % (Manual) 19 L (20-40) % Reactive Lymphs % 1 H (0-0) % Monocytes % (Manual) 13 H (0-10) % Metamyelocytes % 1 H (0-0) % Myelocytes % 2 H (0-0) % Toxic Granulation Present Platelet Estimate Normal (NORMAL) Large Platelets Present Hypochromasia (manual) Slight Poikilocytosis (manual Slight Target Cells Slight [place]uba Cells Moderate Acanthocytes (Spur) Slight Puncture Site pCO2 (35-45) mm/Hg pO2 (80-100) mm/Hg HCO3 (21-28) mmol/L ABG pH (7.35-7.45) ABG Total CO2 (22-28) mmol/L ABG O2 Saturation (95-98) % ABG Base Excess (-2.0-3.0) mmol/L ABG Hemoglobin (11.7-17.4) g/dL ABG Carboxyhemoglobin (0.5-1.5) % POC ABG HHb (Measured) (0.0-5.0) % ABG Methemoglobin (0.0-3.0) % Osmany Test A-a O2 Difference mm/Hg Respiratory Index Hgb O2 Saturation (95.0-98.0) % Liter Flow Vent Mode FiO2 % Sodium 138 (132-148) mmol/L Potassium 3.9 (3.6-5.2) mmol/L Chloride 100 (98-107) mmol/L Carbon Dioxide 27 (22-30) mmol/L Anion Gap 16 (10-20) BUN 65 H (9-20) mg/dL Creatinine 2.2 H (0.8-1.5) mg/dL Est GFR ( Amer) 36 Est GFR (Non-Af Amer) 29 POC Glucose (mg/dL) 140 H (65-110) mg/dL Random Glucose 137 H (75-110) mg/dL Serum Osmolality (272-300) mosm/kg Calcium 9.4 (8.6-10.4) mg/dl Phosphorus 7.4 H (2.5-4.5) mg/dL Magnesium 2.4 H (1.6-2.3) mg/dL Total Bilirubin 0.6 (0.2-1.3) mg/dL AST 27 (17-59) U/L ALT 26 (21-72) U/L Alkaline Phosphatase 86 (38-126) U/L Total Protein 6.1 L (6.3-8.3) g/dL Albumin 3.0 L (3.5-5.0) g/dL Globulin 3.1 (2.2-3.9) gm/dL Albumin/Globulin Ratio 1.0 (1.0-2.1) Amylase 54 (30-110) U/L Lipase 155 (23-300) U/L Urine Color (YELLOW) Urine Clarity (Clear) Urine pH (5.0-8.0) Ur Specific [place] (1.003-1.030) Urine Protein (NEGATIVE) mg/dL Urine Glucose (UA) (Normal) mg/dL Urine Ketones (NEGATIVE) mg/dL Urine Blood (NEGATIVE) Urine Nitrate (NEGATIVE) Urine Bilirubin (NEGATIVE) Urine Urobilinogen (0.2-1.0) mg/dL Ur Leukocyte Esterase (Negative) Zehra/uL Urine WBC (Auto) (0-5) /hpf Urine RBC (Auto) (0-3) /hpf Ur Squamous Epith Cells (0-5) /hpf Urine Bacteria (<OCC) Urine Eosinophils (NEGATIVE) Urine Osmolality (300-1000) mosm/kg Ur Random Creatinine mg/dL Ur Random Sodium mmol/L Random Vancomycin ug/mL 06/23/18 06/22/18 06/22/18 Range/Units 05:14 16:28 13:42 WBC (4.8-10.8) K/uL RBC (4.40-5.90) Mil/uL Hgb (12.0-18.0) g/dL Hct (35.0-51.0) % MCV (80.0-94.0) fL MCH (27.0-31.0) pg MCHC (33.0-37.0) g/dL RDW (11.5-14.5) % Plt Count (130-400) K/uL MPV (7.2-11.7) fL Neut % (Auto) (50.0-75.0) % Lymph % (Auto) (20.0-40.0) % Reagan % (Auto) (0.0-10.0) % Eos % (Auto) (0.0-4.0) % Baso % (Auto) (0.0-2.0) % Neut # (Auto) (1.8-7.0) K/uL Lymph # (Auto) (1.0-4.3) K/uL Reagan # (Auto) (0.0-0.8) K/uL Eos # (Auto) (0.0-0.7) K/uL Baso # (Auto) (0.0-0.2) K/uL Neutrophils % (Manual) (50-75) % Band Neutrophils % (0-2) % Lymphocytes % (Manual) (20-40) % Reactive Lymphs % (0-0) % Monocytes % (Manual) (0-10) % Metamyelocytes % (0-0) % Myelocytes % (0-0) % Toxic Granulation Platelet Estimate (NORMAL) Large Platelets Hypochromasia (manual) Poikilocytosis (manual Target Cells [place] Cells Acanthocytes (Spur) Puncture Site Rr pCO2 41 (35-45) mm/Hg pO2 127 H (80-100) mm/Hg HCO3 26.4 (21-28) mmol/L ABG pH 7.42 (7.35-7.45) ABG Total CO2 27.9 (22-28) mmol/L ABG O2 Saturation 99.9 H (95-98) % ABG Base Excess 1.9 (-2.0-3.0) mmol/L ABG Hemoglobin 8.9 L (11.7-17.4) g/dL ABG Carboxyhemoglobin 1.9 H (0.5-1.5) % POC ABG HHb (Measured) 0.1 (0.0-5.0) % ABG Methemoglobin 0.9 (0.0-3.0) % Osmany Test Pos A-a O2 Difference 321.0 mm/Hg Respiratory Index 2.5 Hgb O2 Saturation 97.0 (95.0-98.0) % Liter Flow 25.0 Vent Mode Prvc FiO2 70.0 % Sodium 138 (132-148) mmol/L Potassium 4.9 (3.6-5.2) mmol/L Chloride 100 (98-107) mmol/L Carbon Dioxide 25 (22-30) mmol/L Anion Gap 18 (10-20) BUN 68 H (9-20) mg/dL Creatinine 2.9 H (0.8-1.5) mg/dL Est GFR ( Amer) 26 Est GFR (Non-Af Amer) 21 POC Glucose (mg/dL) (65-110) mg/dL Random Glucose 137 H D (75-110) mg/dL Serum Osmolality (272-300) mosm/kg Calcium 9.6 (8.6-10.4) mg/dl Phosphorus (2.5-4.5) mg/dL Magnesium (1.6-2.3) mg/dL Total Bilirubin 0.6 (0.2-1.3) mg/dL AST 36 (17-59) U/L ALT 24 (21-72) U/L Alkaline Phosphatase 76 (38-126) U/L Total Protein 6.0 L (6.3-8.3) g/dL Albumin 3.1 L (3.5-5.0) g/dL Globulin 2.9 (2.2-3.9) gm/dL Albumin/Globulin Ratio 1.1 (1.0-2.1) Amylase (30-110) U/L Lipase (23-300) U/L Urine Color (YELLOW) Urine Clarity (Clear) Urine pH (5.0-8.0) Ur Specific [place] (1.003-1.030) Urine Protein (NEGATIVE) mg/dL Urine Glucose (UA) (Normal) mg/dL Urine Ketones (NEGATIVE) mg/dL Urine Blood (NEGATIVE) Urine Nitrate (NEGATIVE) Urine Bilirubin (NEGATIVE) Urine Urobilinogen (0.2-1.0) mg/dL Ur Leukocyte Esterase (Negative) Zehra/uL Urine WBC (Auto) (0-5) /hpf Urine RBC (Auto) (0-3) /hpf Ur Squamous Epith Cells (0-5) /hpf Urine Bacteria (<OCC) Urine Eosinophils Negative (NEGATIVE) Urine Osmolality (300-1000) mosm/kg Ur Random Creatinine mg/dL Ur Random Sodium mmol/L Random Vancomycin ug/mL 06/22/18 06/22/18 06/22/18 Range/Units 13:42 11:36 11:36 WBC (4.8-10.8) K/uL RBC (4.40-5.90) Mil/uL Hgb (12.0-18.0) g/dL Hct (35.0-51.0) % MCV (80.0-94.0) fL MCH (27.0-31.0) pg MCHC (33.0-37.0) g/dL RDW (11.5-14.5) % Plt Count (130-400) K/uL MPV (7.2-11.7) fL Neut % (Auto) (50.0-75.0) % Lymph % (Auto) (20.0-40.0) % Reagan % (Auto) (0.0-10.0) % Eos % (Auto) (0.0-4.0) % Baso % (Auto) (0.0-2.0) % Neut # (Auto) (1.8-7.0) K/uL Lymph # (Auto) (1.0-4.3) K/uL Reagan # (Auto) (0.0-0.8) K/uL Eos # (Auto) (0.0-0.7) K/uL Baso # (Auto) (0.0-0.2) K/uL Neutrophils % (Manual) (50-75) % Band Neutrophils % (0-2) % Lymphocytes % (Manual) (20-40) % Reactive Lymphs % (0-0) % Monocytes % (Manual) (0-10) % Metamyelocytes % (0-0) % Myelocytes % (0-0) % Toxic Granulation Platelet Estimate (NORMAL) Large Platelets Hypochromasia (manual) Poikilocytosis (manual Target Cells [place] Cells Acanthocytes (Spur) Puncture Site pCO2 (35-45) mm/Hg pO2 (80-100) mm/Hg HCO3 (21-28) mmol/L ABG pH (7.35-7.45) ABG Total CO2 (22-28) mmol/L ABG O2 Saturation (95-98) % ABG Base Excess (-2.0-3.0) mmol/L ABG Hemoglobin (11.7-17.4) g/dL ABG Carboxyhemoglobin (0.5-1.5) % POC ABG HHb (Measured) (0.0-5.0) % ABG Methemoglobin (0.0-3.0) % Osmany Test A-a O2 Difference mm/Hg Respiratory Index Hgb O2 Saturation (95.0-98.0) % Liter Flow Vent Mode FiO2 % Sodium (132-148) mmol/L Potassium (3.6-5.2) mmol/L Chloride (98-107) mmol/L Carbon Dioxide (22-30) mmol/L Anion Gap (10-20) BUN (9-20) mg/dL Creatinine (0.8-1.5) mg/dL Est GFR ( Amer) Est GFR (Non-Af Amer) POC Glucose (mg/dL) (65-110) mg/dL Random Glucose (75-110) mg/dL Serum Osmolality (272-300) mosm/kg Calcium (8.6-10.4) mg/dl Phosphorus (2.5-4.5) mg/dL Magnesium (1.6-2.3) mg/dL Total Bilirubin (0.2-1.3) mg/dL AST (17-59) U/L ALT (21-72) U/L Alkaline Phosphatase (38-126) U/L Total Protein (6.3-8.3) g/dL Albumin (3.5-5.0) g/dL Globulin (2.2-3.9) gm/dL Albumin/Globulin Ratio (1.0-2.1) Amylase (30-110) U/L Lipase (23-300) U/L Urine Color Nuris (YELLOW) Urine Clarity Hazy (Clear) Urine pH 5.0 (5.0-8.0) Ur Specific [place] 1.021 (1.003-1.030) Urine Protein 1+ H (NEGATIVE) mg/dL Urine Glucose (UA) Normal (Normal) mg/dL Urine Ketones Negative (NEGATIVE) mg/dL Urine Blood Negative (NEGATIVE) Urine Nitrate Negative (NEGATIVE) Urine Bilirubin Negative (NEGATIVE) Urine Urobilinogen Normal (0.2-1.0) mg/dL Ur Leukocyte Esterase Neg (Negative) Zehra/uL Urine WBC (Auto) 7 H (0-5) /hpf Urine RBC (Auto) 3 (0-3) /hpf Ur Squamous Epith Cells < 1 (0-5) /hpf Urine Bacteria Rare (<OCC) Urine Eosinophils (NEGATIVE) Urine Osmolality 424 (300-1000) mosm/kg Ur Random Creatinine 77.4 mg/dL Ur Random Sodium < 5 mmol/L Random Vancomycin 11.5 ug/mL 06/22/18 Range/Units 11:36 WBC (4.8-10.8) K/uL RBC (4.40-5.90) Mil/uL Hgb (12.0-18.0) g/dL Hct (35.0-51.0) % MCV (80.0-94.0) fL MCH (27.0-31.0) pg MCHC (33.0-37.0) g/dL RDW (11.5-14.5) % Plt Count (130-400) K/uL MPV (7.2-11.7) fL Neut % (Auto) (50.0-75.0) % Lymph % (Auto) (20.0-40.0) % Reagan % (Auto) (0.0-10.0) % Eos % (Auto) (0.0-4.0) % Baso % (Auto) (0.0-2.0) % Neut # (Auto) (1.8-7.0) K/uL Lymph # (Auto) (1.0-4.3) K/uL Reagan # (Auto) (0.0-0.8) K/uL Eos # (Auto) (0.0-0.7) K/uL Baso # (Auto) (0.0-0.2) K/uL Neutrophils % (Manual) (50-75) % Band Neutrophils % (0-2) % Lymphocytes % (Manual) (20-40) % Reactive Lymphs % (0-0) % Monocytes % (Manual) (0-10) % Metamyelocytes % (0-0) % Myelocytes % (0-0) % Toxic Granulation Platelet Estimate (NORMAL) Large Platelets Hypochromasia (manual) Poikilocytosis (manual Target Cells [place] Cells Acanthocytes (Spur) Puncture Site pCO2 (35-45) mm/Hg pO2 (80-100) mm/Hg HCO3 (21-28) mmol/L ABG pH (7.35-7.45) ABG Total CO2 (22-28) mmol/L ABG O2 Saturation (95-98) % ABG Base Excess (-2.0-3.0) mmol/L ABG Hemoglobin (11.7-17.4) g/dL ABG Carboxyhemoglobin (0.5-1.5) % POC ABG HHb (Measured) (0.0-5.0) % ABG Methemoglobin (0.0-3.0) % Osmany Test A-a O2 Difference mm/Hg Respiratory Index Hgb O2 Saturation (95.0-98.0) % Liter Flow Vent Mode FiO2 % Sodium (132-148) mmol/L Potassium (3.6-5.2) mmol/L Chloride (98-107) mmol/L Carbon Dioxide (22-30) mmol/L Anion Gap (10-20) BUN (9-20) mg/dL Creatinine (0.8-1.5) mg/dL Est GFR ( Amer) Est GFR (Non-Af Amer) POC Glucose (mg/dL) (65-110) mg/dL Random Glucose (75-110) mg/dL Serum Osmolality 315 H (272-300) mosm/kg Calcium (8.6-10.4) mg/dl Phosphorus (2.5-4.5) mg/dL Magnesium (1.6-2.3) mg/dL Total Bilirubin (0.2-1.3) mg/dL AST (17-59) U/L ALT (21-72) U/L Alkaline Phosphatase (38-126) U/L Total Protein (6.3-8.3) g/dL Albumin (3.5-5.0) g/dL Globulin (2.2-3.9) gm/dL Albumin/Globulin Ratio (1.0-2.1) Amylase (30-110) U/L Lipase (23-300) U/L Urine Color (YELLOW) Urine Clarity (Clear) Urine pH (5.0-8.0) Ur Specific [place] (1.003-1.030) Urine Protein (NEGATIVE) mg/dL Urine Glucose (UA) (Normal) mg/dL Urine Ketones (NEGATIVE) mg/dL Urine Blood (NEGATIVE) Urine Nitrate (NEGATIVE) Urine Bilirubin (NEGATIVE) Urine Urobilinogen (0.2-1.0) mg/dL Ur Leukocyte Esterase (Negative) Zehra/uL Urine WBC (Auto) (0-5) /hpf Urine RBC (Auto) (0-3) /hpf Ur Squamous Epith Cells (0-5) /hpf Urine Bacteria (<OCC) Urine Eosinophils (NEGATIVE) Urine Osmolality (300-1000) mosm/kg Ur Random Creatinine mg/dL Ur Random Sodium mmol/L Random Vancomycin ug/mL Laboratory Results - last 24 hr 06/22/18 06/22/18 06/22/18 11:36 11:36 11:36 WBC RBC Hgb Hct MCV MCH MCHC RDW Plt Count MPV Neut % (Auto) Lymph % (Auto) Reagan % (Auto) Eos % (Auto) Baso % (Auto) Neut # (Auto) Lymph # (Auto) Reagan # (Auto) Eos # (Auto) Baso # (Auto) Neutrophils % (Manual) Band Neutrophils % Lymphocytes % (Manual) Reactive Lymphs % Monocytes % (Manual) Metamyelocytes % Myelocytes % Toxic Granulation Platelet Estimate Large Platelets Hypochromasia (manual) Poikilocytosis (manual Target Cells Luba Cells Acanthocytes (Spur) Puncture Site pCO2 pO2 HCO3 ABG pH ABG Total CO2 ABG O2 Saturation ABG Base Excess ABG Hemoglobin ABG Carboxyhemoglobin POC ABG HHb (Measured) ABG Methemoglobin Osmany Test A-a O2 Difference Respiratory Index Hgb O2 Saturation Liter Flow Vent Mode FiO2 Sodium Potassium Chloride Carbon Dioxide Anion Gap BUN Creatinine Est GFR ( Amer) Est GFR (Non-Af Amer) POC Glucose (mg/dL) Random Glucose Serum Osmolality 315 H Calcium Phosphorus Magnesium Total Bilirubin AST ALT Alkaline Phosphatase Total Protein Albumin Globulin Albumin/Globulin Ratio Amylase Lipase Urine Color Nuris Urine Clarity Hazy Urine pH 5.0 Ur Specific [place] 1.021 Urine Protein 1+ H Urine Glucose (UA) Normal Urine Ketones Negative Urine Blood Negative Urine Nitrate Negative Urine Bilirubin Negative Urine Urobilinogen Normal Ur Leukocyte Esterase Neg Urine WBC (Auto) 7 H Urine RBC (Auto) 3 Ur Squamous Epith Cells < 1 Urine Bacteria Rare Urine Eosinophils Urine Osmolality 424 Ur Random Creatinine 77.4 Ur Random Sodium < 5 Random Vancomycin 06/22/18 06/22/18 06/22/18 13:42 13:42 16:28 WBC RBC Hgb Hct MCV MCH MCHC RDW Plt Count MPV Neut % (Auto) Lymph % (Auto) Reagan % (Auto) Eos % (Auto) Baso % (Auto) Neut # (Auto) Lymph # (Auto) Reagan # (Auto) Eos # (Auto) Baso # (Auto) Neutrophils % (Manual) Band Neutrophils % Lymphocytes % (Manual) Reactive Lymphs % Monocytes % (Manual) Metamyelocytes % Myelocytes % Toxic Granulation Platelet Estimate Large Platelets Hypochromasia (manual) Poikilocytosis (manual Target Cells [place] Cells Acanthocytes (Spur) Puncture Site pCO2 pO2 HCO3 ABG pH ABG Total CO2 ABG O2 Saturation ABG Base Excess ABG Hemoglobin ABG Carboxyhemoglobin POC ABG HHb (Measured) ABG Methemoglobin Osmany Test A-a O2 Difference Respiratory Index Hgb O2 Saturation Liter Flow Vent Mode FiO2 Sodium 138 Potassium 4.9 Chloride 100 Carbon Dioxide 25 Anion Gap 18 BUN 68 H Creatinine 2.9 H Est GFR ( Amer) 26 Est GFR (Non-Af Amer) 21 POC Glucose (mg/dL) Random Glucose 137 H D Serum Osmolality Calcium 9.6 Phosphorus Magnesium Total Bilirubin 0.6 AST 36 ALT 24 Alkaline Phosphatase 76 Total Protein 6.0 L Albumin 3.1 L Globulin 2.9 Albumin/Globulin Ratio 1.1 Amylase Lipase Urine Color Urine Clarity Urine pH Ur Specific [place] Urine Protein Urine Glucose (UA) Urine Ketones Urine Blood Urine Nitrate Urine Bilirubin Urine Urobilinogen Ur Leukocyte Esterase Urine WBC (Auto) Urine RBC (Auto) Ur Squamous Epith Cells Urine Bacteria Urine Eosinophils Negative Urine Osmolality Ur Random Creatinine Ur Random Sodium Random Vancomycin 11.5 06/23/18 06/23/18 06/23/18 05:14 06:10 06:10 WBC 23.1 H RBC 3.23 L Hgb 8.6 L Hct 26.8 L MCV 83.0 MCH 26.5 L MCHC 32.0 L RDW 14.8 H Plt Count 384 MPV 9.5 Neut % (Auto) 53.8 Lymph % (Auto) 41.1 H Reagan % (Auto) 3.9 Eos % (Auto) 0.0 Baso % (Auto) 1.2 Neut # (Auto) 12.4 H Lymph # (Auto) 9.5 H Reagan # (Auto) 0.9 H Eos # (Auto) 0.0 Baso # (Auto) 0.3 H Neutrophils % (Manual) 28 L Band Neutrophils % 36 H* Lymphocytes % (Manual) 19 L Reactive Lymphs % 1 H Monocytes % (Manual) 13 H Metamyelocytes % 1 H Myelocytes % 2 H Toxic Granulation Present Platelet Estimate Normal Large Platelets Present Hypochromasia (manual) Slight Poikilocytosis (manual Slight Target Cells Slight [place] Cells Moderate Acanthocytes (Spur) Slight Puncture Site Rr pCO2 41 pO2 127 H HCO3 26.4 ABG pH 7.42 ABG Total CO2 27.9 ABG O2 Saturation 99.9 H ABG Base Excess 1.9 ABG Hemoglobin 8.9 L ABG Carboxyhemoglobin 1.9 H POC ABG HHb (Measured) 0.1 ABG Methemoglobin 0.9 Osmany Test Pos A-a O2 Difference 321.0 Respiratory Index 2.5 Hgb O2 Saturation 97.0 Liter Flow 25.0 Vent Mode Prvc FiO2 70.0 Sodium 138 Potassium 3.9 Chloride 100 Carbon Dioxide 27 Anion Gap 16 BUN 65 H Creatinine 2.2 H Est GFR ( Amer) 36 Est GFR (Non-Af Amer) 29 POC Glucose (mg/dL) Random Glucose 137 H Serum Osmolality Calcium 9.4 Phosphorus 7.4 H Magnesium 2.4 H Total Bilirubin 0.6 AST 27 ALT 26 Alkaline Phosphatase 86 Total Protein 6.1 L Albumin 3.0 L Globulin 3.1 Albumin/Globulin Ratio 1.0 Amylase 54 Lipase 155 Urine Color Urine Clarity Urine pH Ur Specific [place] Urine Protein Urine Glucose (UA) Urine Ketones Urine Blood Urine Nitrate Urine Bilirubin Urine Urobilinogen Ur Leukocyte Esterase Urine WBC (Auto) Urine RBC (Auto) Ur Squamous Epith Cells Urine Bacteria Urine Eosinophils Urine Osmolality Ur Random Creatinine Ur Random Sodium Random Vancomycin 06/23/18 07:29 WBC RBC Hgb Hct MCV MCH MCHC RDW Plt Count MPV Neut % (Auto) Lymph % (Auto) Reagan % (Auto) Eos % (Auto) Baso % (Auto) Neut # (Auto) Lymph # (Auto) Reagan # (Auto) Eos # (Auto) Baso # (Auto) Neutrophils % (Manual) Band Neutrophils % Lymphocytes % (Manual) Reactive Lymphs % Monocytes % (Manual) Metamyelocytes % Myelocytes % Toxic Granulation Platelet Estimate Large Platelets Hypochromasia (manual) Poikilocytosis (manual Target Cells Luba Cells Acanthocytes (Spur) Puncture Site pCO2 pO2 HCO3 ABG pH ABG Total CO2 ABG O2 Saturation ABG Base Excess ABG Hemoglobin ABG Carboxyhemoglobin POC ABG HHb (Measured) ABG Methemoglobin Somany Test A-a O2 Difference Respiratory Index Hgb O2 Saturation Liter Flow Vent Mode FiO2 Sodium Potassium Chloride Carbon Dioxide Anion Gap BUN Creatinine Est GFR ( Amer) Est GFR (Non-Af Amer) POC Glucose (mg/dL) 140 H Random Glucose Serum Osmolality Calcium Phosphorus Magnesium Total Bilirubin AST ALT Alkaline Phosphatase Total Protein Albumin Globulin Albumin/Globulin Ratio Amylase Lipase Urine Color Urine Clarity Urine pH Ur Specific [place] Urine Protein Urine Glucose (UA) Urine Ketones Urine Blood Urine Nitrate Urine Bilirubin Urine Urobilinogen Ur Leukocyte Esterase Urine WBC (Auto) Urine RBC (Auto) Ur Squamous Epith Cells Urine Bacteria Urine Eosinophils Urine Osmolality Ur Random Creatinine Ur Random Sodium Random Vancomycin Radiology Impressions: Radiology Impressions Renal Ultrasound 06/22/18 10:37 IMPRESSION: Bilateral simple renal cortical cyst. No evidence of hydronephrosis. Chest X-Ray 06/23/18 07:00 IMPRESSION: Interval improved aeration in the lungs particularly in the left perihilar region. Small left pleural effusion Worsening confluent airspace disease in the right lower lobe may represent developing pneumonia. Follow-up after medical management is recommended to ensure complete resolution. EKG/Cardiology Studies: Cardiology / EKG Studies 06/22/18 10:36 EKG [ELECTROCARDIOGRAM] Routine Comment: Mode Of Transportation: Reason For Exam: elevated K Review of Systems - Review of Systems Review of Systems: 12 point ROS obtained and noted as in HPI Critical Care Progress Note - Prophylaxis GI Prophylaxis GI: PPI - Prophylaxis DVT Prophylaxis DVT: Heparin SQ - Nutrition Nutrition: Nutrition Category Date Time Status NPO Diet [DIET] Diets 06/23/18 Breakfast Active Assessment/Plan - Assessment and Plan (Free Text) Assessment: Patient is a 73 yo male with PMH of HTN and APL admitted to hospital for shortness of breath. Recently discharged to [facility] after tx of cellulitis. ICU consulted for sepsis and hypoxia Neuro AAOX3 Gabapentin 300mg po bid Pulm Duoneb; On high flow oxygen; became hypoxic on nasal cannula Cxray shows possible PNA- Linezolid/Meropenem Mucinex bid CV Consider restarting home amlodipine if patient bp remains elevated GI NG tube in place; NPO; Zofran Heme Hx of APL- f/u badin recs- possible tumor lysis syndrome vs acute prolymphocytic crisis Will do flow cytometry to see if patient APL has returned Derm Chronic whole body dry scaly skin- Vaseline ointment 5gm q6h; Clotrimazole; Etiology likely related to patient APL (has oncology appointment on July 11) Renal Cr trending down NS @ 100mls/hr elevated uric acid- allopurinol- repeat uric acid in AM Banana bag Repeat CMP in AM ID Sepsis criteria w/ elevated lactate; Meropenem/Linezolid; WBC trending down DVT ppx: Heparin GI ppx: Protonix <Zachery Llanes - Last Filed: 06/23/18 16:02> CCU Objective - Vital Signs / Intake & Output Vital Signs (Last 4 hours): Vital Signs Resp 06/23/18 13:22 13 Intake and Output (Last 8hrs): Intake & Output 06/23/18 06/23/18 06/23/18 06:59 14:59 22:59 Intake Total 1000 450 Output Total 320 490 Balance 680 -40 Weight 156 lb Intake: Intake, IV Amount 1000 450 Right Proximal Port 1000 450 Internal Jugular Output: Urine 320 490 Urethral ([place]) 320 490 Other: # Bowel Movements 0 - Medications Active Medications: Active Medications Generic Name Dose Route Start Last Admin Trade Name Freq PRN Reason Stop Dose Admin Albuterol/Ipratropium 3 ml 06/21/18 20:00 06/23/18 13:21 Duoneb 3 Mg/0.5 Mg (3 Ml) Ud INH 3 ml RQ6 [facility] Administration Allopurinol 100 mg 06/23/18 10:00 06/23/18 11:08 Zyloprim PO 100 mg DAILY [facility] Administration Calcium Acetate 667 mg 06/23/18 14:00 06/23/18 14:07 Phoslo GT 667 mg TIDCC [facility] Administration Clotrimazole 0 gm 06/21/18 18:00 06/23/18 10:30 Lotrimin 1% TOP 1 appl BID [facility] Administration Emollient Ointment 5 gm 06/21/18 14:28 06/23/18 10:09 Vaseline Oint TOP 5 gm Q6H PRN Administration Dry skin Gabapentin 300 mg 06/21/18 18:15 06/23/18 10:09 Neurontin PO 300 mg BID [facility] Administration Guaifenesin 600 mg 06/22/18 19:00 06/23/18 06:13 Mucinex La PO Not Given Q12H [facility] Heparin Sodium (Porcine) 5,000 units 06/21/18 22:00 06/23/18 14:07 Heparin SC 5,000 units Q8H [facility] Administration Hydrocortisone Sodium Succinate 100 mg 06/23/18 16:00 Solu-Cortef IV DAILY [facility] Linezolid 600 mg in 300 mls @ 200 mls/hr 06/22/18 14:00 06/23/18 14:08 Zyvox 600mg/300ml D5w IVPB 200 mls/hr Q12H [facility] Administration Protocol Meropenem 500 mg/ Sodium 100 mls @ 100 mls/hr 06/22/18 16:00 06/23/18 04:06 Chloride IVPB 100 mls/hr Q12H [facility] Administration Protocol Folic Acid 1 mg/ Thiamine HCl 1,011.2 mls @ 42 mls/hr 06/23/18 09:45 06/23/18 13:55 100 mg/ Multivitamins/Vitamin IV 42 mls/hr C 10 ml/ Dextrose .Q24H [facility] Administration Multivitamins/Vitamin C 10 ml/ 1,011 mls @ 42 mls/hr 06/23/18 18:00 Chromium/Copper/Manganese/ IV 06/24/18 17:59 Zinc 1 ml/ Amino Acids .Q24H ONE Sodium Chloride 1,000 mls @ 125 mls/hr 06/23/18 13:43 Sodium Chloride 0.9% IV .Q8H [facility] Ondansetron HCl 4 mg 06/22/18 22:10 06/22/18 23:01 Zofran Inj IVP 4 mg Q6 PRN Administration Nausea/Vomiting Pantoprazole Sodium 40 mg 06/21/18 16:15 06/23/18 10:09 Protonix Ec Tab PO 40 mg DAILY [facility] Administration Thiamine HCl 200 mg 06/23/18 09:45 06/23/18 10:09 Vitamin B1 Inj IV 06/24/18 17:46 200 mg Q8H [facility] Administration - Patient Studies Lab Studies: Microbiology Studies 06/21/18 10:50 Blood Culture - Preliminary Blood NO GROWTH AFTER 48 HOURS 06/21/18 10:35 Blood Culture - Preliminary Blood NO GROWTH AFTER 48 HOURS 06/22/18 11:36 Urine Culture - Final Urine,Catheterized No Growth (<1,000 CFU/ML) 06/21/18 11:45 Gram Stain - Final Sputum Sputum Culture - Preliminary Gram Negative Constantin 06/21/18 14:26 MRSA Culture (Admit) - Final Naris MRSA NOT DETECTED Lab Studies 06/23/18 06/23/18 06/23/18 Range/Units 07:29 06:10 06:10 WBC 23.1 H (4.8-10.8) K/uL RBC 3.23 L (4.40-5.90) Mil/uL Hgb 8.6 L (12.0-18.0) g/dL Hct 26.8 L (35.0-51.0) % MCV 83.0 (80.0-94.0) fL MCH 26.5 L (27.0-31.0) pg MCHC 32.0 L (33.0-37.0) g/dL RDW 14.8 H (11.5-14.5) % Plt Count 384 (130-400) K/uL MPV 9.5 (7.2-11.7) fL Neut % (Auto) 53.8 (50.0-75.0) % Lymph % (Auto) 41.1 H (20.0-40.0) % Reagan % (Auto) 3.9 (0.0-10.0) % Eos % (Auto) 0.0 (0.0-4.0) % Baso % (Auto) 1.2 (0.0-2.0) % Neut # (Auto) 12.4 H (1.8-7.0) K/uL Lymph # (Auto) 9.5 H (1.0-4.3) K/uL Reagan # (Auto) 0.9 H (0.0-0.8) K/uL Eos # (Auto) 0.0 (0.0-0.7) K/uL Baso # (Auto) 0.3 H (0.0-0.2) K/uL Neutrophils % (Manual) 28 L (50-75) % Band Neutrophils % 36 H* (0-2) % Lymphocytes % (Manual) 19 L (20-40) % Reactive Lymphs % 1 H (0-0) % Monocytes % (Manual) 13 H (0-10) % Metamyelocytes % 1 H (0-0) % Myelocytes % 2 H (0-0) % Toxic Granulation Present Platelet Estimate Normal (NORMAL) Large Platelets Present Hypochromasia (manual) Slight Poikilocytosis (manual Slight Target Cells Slight [place] Cells Moderate Acanthocytes (Spur) Slight Puncture Site pCO2 (35-45) mm/Hg pO2 (80-100) mm/Hg HCO3 (21-28) mmol/L ABG pH (7.35-7.45) ABG Total CO2 (22-28) mmol/L ABG O2 Saturation (95-98) % ABG Base Excess (-2.0-3.0) mmol/L ABG Hemoglobin (11.7-17.4) g/dL ABG Carboxyhemoglobin (0.5-1.5) % POC ABG HHb (Measured) (0.0-5.0) % ABG Methemoglobin (0.0-3.0) % Osmany Test A-a O2 Difference mm/Hg Respiratory Index Hgb O2 Saturation (95.0-98.0) % Liter Flow Vent Mode FiO2 % Sodium 138 (132-148) mmol/L Potassium 3.9 (3.6-5.2) mmol/L Chloride 100 (98-107) mmol/L Carbon Dioxide 27 (22-30) mmol/L Anion Gap 16 (10-20) BUN 65 H (9-20) mg/dL Creatinine 2.2 H (0.8-1.5) mg/dL Est GFR ( Amer) 36 Est GFR (Non-Af Amer) 29 POC Glucose (mg/dL) 140 H (65-110) mg/dL Random Glucose 137 H (75-110) mg/dL Calcium 9.4 (8.6-10.4) mg/dl Phosphorus 7.4 H (2.5-4.5) mg/dL Magnesium 2.4 H (1.6-2.3) mg/dL Total Bilirubin 0.6 (0.2-1.3) mg/dL AST 27 (17-59) U/L ALT 26 (21-72) U/L Alkaline Phosphatase 86 (38-126) U/L Total Protein 6.1 L (6.3-8.3) g/dL Albumin 3.0 L (3.5-5.0) g/dL Globulin 3.1 (2.2-3.9) gm/dL Albumin/Globulin Ratio 1.0 (1.0-2.1) Amylase 54 (30-110) U/L Lipase 155 (23-300) U/L 06/23/18 06/22/18 Range/Units 05:14 16:28 WBC (4.8-10.8) K/uL RBC (4.40-5.90) Mil/uL Hgb (12.0-18.0) g/dL Hct (35.0-51.0) % MCV (80.0-94.0) fL MCH (27.0-31.0) pg MCHC (33.0-37.0) g/dL RDW (11.5-14.5) % Plt Count (130-400) K/uL MPV (7.2-11.7) fL Neut % (Auto) (50.0-75.0) % Lymph % (Auto) (20.0-40.0) % [place] % (Auto) (0.0-10.0) % Eos % (Auto) (0.0-4.0) % Baso % (Auto) (0.0-2.0) % Neut # (Auto) (1.8-7.0) K/uL Lymph # (Auto) (1.0-4.3) K/uL [place] # (Auto) (0.0-0.8) K/uL Eos # (Auto) (0.0-0.7) K/uL Baso # (Auto) (0.0-0.2) K/uL Neutrophils % (Manual) (50-75) % Band Neutrophils % (0-2) % Lymphocytes % (Manual) (20-40) % Reactive Lymphs % (0-0) % Monocytes % (Manual) (0-10) % Metamyelocytes % (0-0) % Myelocytes % (0-0) % Toxic Granulation Platelet Estimate (NORMAL) Large Platelets Hypochromasia (manual) Poikilocytosis (manual Target Cells [place] Cells Acanthocytes (Spur) Puncture Site Rr pCO2 41 (35-45) mm/Hg pO2 127 H (80-100) mm/Hg HCO3 26.4 (21-28) mmol/L ABG pH 7.42 (7.35-7.45) ABG Total CO2 27.9 (22-28) mmol/L ABG O2 Saturation 99.9 H (95-98) % ABG Base Excess 1.9 (-2.0-3.0) mmol/L ABG Hemoglobin 8.9 L (11.7-17.4) g/dL ABG Carboxyhemoglobin 1.9 H (0.5-1.5) % POC ABG HHb (Measured) 0.1 (0.0-5.0) % ABG Methemoglobin 0.9 (0.0-3.0) % Osmany Test Pos A-a O2 Difference 321.0 mm/Hg Respiratory Index 2.5 Hgb O2 Saturation 97.0 (95.0-98.0) % Liter Flow 25.0 Vent Mode Prvc FiO2 70.0 % Sodium 138 (132-148) mmol/L Potassium 4.9 (3.6-5.2) mmol/L Chloride 100 (98-107) mmol/L Carbon Dioxide 25 (22-30) mmol/L Anion Gap 18 (10-20) BUN 68 H (9-20) mg/dL Creatinine 2.9 H (0.8-1.5) mg/dL Est GFR ( Amer) 26 Est GFR (Non-Af Amer) 21 POC Glucose (mg/dL) (65-110) mg/dL Random Glucose 137 H D (75-110) mg/dL Calcium 9.6 (8.6-10.4) mg/dl Phosphorus (2.5-4.5) mg/dL Magnesium (1.6-2.3) mg/dL Total Bilirubin 0.6 (0.2-1.3) mg/dL AST 36 (17-59) U/L ALT 24 (21-72) U/L Alkaline Phosphatase 76 (38-126) U/L Total Protein 6.0 L (6.3-8.3) g/dL Albumin 3.1 L (3.5-5.0) g/dL Globulin 2.9 (2.2-3.9) gm/dL Albumin/Globulin Ratio 1.1 (1.0-2.1) Amylase (30-110) U/L Lipase (23-300) U/L Laboratory Results - last 24 hr 06/22/18 06/23/18 06/23/18 16:28 05:14 06:10 WBC 23.1 H RBC 3.23 L Hgb 8.6 L Hct 26.8 L MCV 83.0 MCH 26.5 L MCHC 32.0 L RDW 14.8 H Plt Count 384 MPV 9.5 Neut % (Auto) 53.8 Lymph % (Auto) 41.1 H [place] % (Auto) 3.9 Eos % (Auto) 0.0 Baso % (Auto) 1.2 Neut # (Auto) 12.4 H Lymph # (Auto) 9.5 H Reagan # (Auto) 0.9 H Eos # (Auto) 0.0 Baso # (Auto) 0.3 H Neutrophils % (Manual) 28 L Band Neutrophils % 36 H* Lymphocytes % (Manual) 19 L Reactive Lymphs % 1 H Monocytes % (Manual) 13 H Metamyelocytes % 1 H Myelocytes % 2 H Toxic Granulation Present Platelet Estimate Normal Large Platelets Present Hypochromasia (manual) Slight Poikilocytosis (manual Slight Target Cells Slight [place] Cells Moderate Acanthocytes (Spur) Slight Puncture Site Rr pCO2 41 pO2 127 H HCO3 26.4 ABG pH 7.42 ABG Total CO2 27.9 ABG O2 Saturation 99.9 H ABG Base Excess 1.9 ABG Hemoglobin 8.9 L ABG Carboxyhemoglobin 1.9 H POC ABG HHb (Measured) 0.1 ABG Methemoglobin 0.9 Osmany Test Pos A-a O2 Difference 321.0 Respiratory Index 2.5 Hgb O2 Saturation 97.0 Liter Flow 25.0 Vent Mode Prvc FiO2 70.0 Sodium 138 Potassium 4.9 Chloride 100 Carbon Dioxide 25 Anion Gap 18 BUN 68 H Creatinine 2.9 H Est GFR ( Amer) 26 Est GFR (Non-Af Amer) 21 POC Glucose (mg/dL) Random Glucose 137 H D Calcium 9.6 Phosphorus Magnesium Total Bilirubin 0.6 AST 36 ALT 24 Alkaline Phosphatase 76 Total Protein 6.0 L Albumin 3.1 L Globulin 2.9 Albumin/Globulin Ratio 1.1 Amylase Lipase 06/23/18 06/23/18 06:10 07:29 WBC RBC Hgb Hct MCV MCH MCHC RDW Plt Count MPV Neut % (Auto) Lymph % (Auto) [place] % (Auto) Eos % (Auto) Baso % (Auto) Neut # (Auto) Lymph # (Auto) [place] # (Auto) Eos # (Auto) Baso # (Auto) Neutrophils % (Manual) Band Neutrophils % Lymphocytes % (Manual) Reactive Lymphs % Monocytes % (Manual) Metamyelocytes % Myelocytes % Toxic Granulation Platelet Estimate Large Platelets Hypochromasia (manual) Poikilocytosis (manual Target Cells [place] Cells Acanthocytes (Spur) Puncture Site pCO2 pO2 HCO3 ABG pH ABG Total CO2 ABG O2 Saturation ABG Base Excess ABG Hemoglobin ABG Carboxyhemoglobin POC ABG HHb (Measured) ABG Methemoglobin Osmany Test A-a O2 Difference Respiratory Index Hgb O2 Saturation Liter Flow Vent Mode FiO2 Sodium 138 Potassium 3.9 Chloride 100 Carbon Dioxide 27 Anion Gap 16 BUN 65 H Creatinine 2.2 H Est GFR ( Amer) 36 Est GFR (Non-Af Amer) 29 POC Glucose (mg/dL) 140 H Random Glucose 137 H Calcium 9.4 Phosphorus 7.4 H Magnesium 2.4 H Total Bilirubin 0.6 AST 27 ALT 26 Alkaline Phosphatase 86 Total Protein 6.1 L Albumin 3.0 L Globulin 3.1 Albumin/Globulin Ratio 1.0 Amylase 54 Lipase 155 Radiology Impressions: Radiology Impressions Chest X-Ray 06/23/18 07:00 IMPRESSION: Interval improved aeration in the lungs particularly in the left perihilar region. Small left pleural effusion Worsening confluent airspace disease in the right lower lobe may represent developing pneumonia. Follow-up after medical management is recommended to ensure complete resolution. Critical Care Progress Note - Nutrition Nutrition: Nutrition Category Date Time Status NPO Diet [DIET] Diets 06/23/18 Breakfast Active Assessment/Plan - Assessment and Plan (Free Text) Plan: Patient seen and examined at bedside. Patient with h/o leukemia. Patient admitted to ICU for sepsis, LEft lwoer lobe pneumonia -Lobar pneumonia: f/u cultures, continuelenezolid + lit -VIOLETTE: continue IVF, monitor urine output -nausea/vomitting: continue NG tube tto low intermittent suction, obtain CT abd/pelvis with oral contrast. -continue DVT/PUD ppx -heme/onc input regarding underlying ca -prognosis poor 2nd low karnofsky score -continue to monitor - Date & Time Date: 06/23/18 Time: 16:02
[2018-06-23] MEDS ORDERED: Iohexol 240 (50 ml) PO ONE (11:30)
--- NOTE | 2018-06-23 13:35 | CP.PCM.CON ---
History of Present Illness - History of Present Illness History of Present Illness: HPI: Patient is a 73 yo male w/ PMH of HTN and APL admitted for shortness of breath and sepsis. Patient was recently in hospital for cellulitis in lower extremities and was hi'ed to rehab facility. Patient began having multiple episodes of emesis starting at 1:00 am. Patient's family at bedside that patient did not complain of fevers recently. Patient's family denied sick contacts. Patient's family states patient was having cough production w/ clear sputum. Patient admits to chills and sob. Patient denies chest pain, n/v, constipation or diarrhea, headaches, dysuria. Code sepsis called recently. Has had IV fluid hydration last 24 hours On high flow O2 for pneumonia Has had a desquamating rash x few weeks Renal function stable on admission; creat increased to 2.7, now improving No CKD hx PMH- HTN, Leukemia (Prolymphocytic Leukemia) Meds- Gabapentin 300mg bid, prednisone 20mg po daily, Amlodipine 10mg, levocetirizine 5mg, MVI once daily, Benadryl 50mg q6 prn PSH- 2 hernia repairs FH-Denies; no CKD Allergies-NKDA Social- Denies alcohol, tobacco, and drug use; former smoker PMD- Dr. Post Code- Full code Review of Systems - Review of Systems Systems not reviewed;Unavailable: Respiratory Distress Past Patient History - Past Medical History & Family History Past Medical History?: Yes Past Family History: Reviewed and not pertinent - Past Social History Smoking Status: Former Smoker Chewing Tobacco Use: No Cigar Use: No Alcohol: None Drugs: Denies Home Situation {Lives}: Prison - CARDIAC Hx Hypercholesterolemia: Yes Hx Hypertension: Yes - NEUROLOGICAL Hx Transient Ischemic Attacks (TIA): No - HEENT Hx Cataracts: Yes (rehan) - HEMATOLOGICAL/ONCOLOGICAL Hx Blood Disorders: Yes Hx Leukemia: Yes (IN REMISSION) - INTEGUMENTARY Hx Dermatological Problems: Yes Hx Eczema: Yes (ALL OVER BODY) - MUSCULOSKELETAL/RHEUMATOLOGICAL Hx Fractures: No - GASTROINTESTINAL Hx Gastrointestinal Disorders: Yes Hx Bowel Surgery: Yes (2X RESECTION OF 2 LARGE, BENIGN POLYPS) - PSYCHIATRIC Hx Substance Use: No - SURGICAL HISTORY Hx Surgeries: Yes Hx Herniorrhaphy: Yes (RIGHT GROIN) - ANESTHESIA Hx Anesthesia: Yes Hx Anesthesia Reactions: No Hx Malignant Hyperthermia: No Meds Allergies/Adverse Reactions: Allergies Allergy/AdvReac Type Severity Reaction Status Date / Time No Known Allergies Allergy Verified 02/14/17 07:07 - Medications Medications: Current Medications Albuterol/Ipratropium (Duoneb 3 Mg/0.5 Mg (3 Ml) Ud) 3 ml INH RQ6 [facility] Last Admin: 06/23/18 13:21 Dose: 3 ml Allopurinol (Zyloprim) 100 mg PO DAILY [facility] Last Admin: 06/23/18 11:08 Dose: 100 mg Clotrimazole (Lotrimin 1%) 0 gm TOP BID [facility] Last Admin: 06/23/18 10:30 Dose: 1 appl Emollient Ointment (Vaseline Oint) 5 gm TOP Q6H PRN PRN Reason: Dry skin Last Admin: 06/23/18 10:09 Dose: 5 gm Gabapentin (Neurontin) 300 mg PO BID [facility] Last Admin: 06/23/18 10:09 Dose: 300 mg Guaifenesin (Mucinex La) 600 mg PO Q12H [facility] Last Admin: 06/23/18 06:13 Dose: Not Given Heparin Sodium (Porcine) (Heparin) 5,000 units SC Q8H [facility] Last Admin: 06/23/18 05:46 Dose: 5,000 units Linezolid (Zyvox 600mg/300ml D5w) 600 mg in 300 mls @ 200 mls/hr IVPB Q12H [facility]; Protocol Last Admin: 06/23/18 02:06 Dose: 200 mls/hr Meropenem 500 mg/ Sodium (Chloride) 100 mls @ 100 mls/hr IVPB Q12H [facility]; Protocol Last Admin: 06/23/18 04:06 Dose: 100 mls/hr Sodium Chloride (Sodium Chloride 0.9%) 1,000 mls @ 100 mls/hr IV .Q10H [facility] Last Admin: 06/22/18 22:45 Dose: 100 mls/hr Folic Acid 1 mg/ Thiamine HCl 100 mg/ Multivitamins/Vitamin C 10 ml/ Dextrose 1,011.2 mls @ 42 mls/hr IV .Q24H [facility] Multivitamins/Vitamin C 10 ml/Chromium/Copper/Manganese/Zinc 1 ml/ Amino Acids 1,011 mls @ 42 mls/hr IV .Q24H [facility] Stop: 06/24/18 17:59 Ondansetron HCl (Zofran Inj) 4 mg IVP Q6 PRN PRN Reason: Nausea/Vomiting Last Admin: 06/22/18 23:01 Dose: 4 mg Pantoprazole Sodium (Protonix Ec Tab) 40 mg PO DAILY [facility] Last Admin: 06/23/18 10:09 Dose: 40 mg Thiamine HCl (Vitamin B1 Inj) 200 mg IV Q8H [facility] Stop: 06/24/18 17:46 Last Admin: 06/23/18 10:09 Dose: 200 mg Physical Exam - Constitutional Appears: Non-toxic, In Acute Distress, Chronically Ill - Head Exam Head Exam: ATRAUMATIC, NORMAL INSPECTION - Neck Exam Neck exam: Positive for: Normal Inspection. Negative for: Tenderness - Respiratory Exam Respiratory Exam: Rhonchi, Respiratory Distress - Cardiovascular Exam Cardiovascular Exam: REGULAR RHYTHM, +S1 - GI/Abdominal Exam GI & Abdominal Exam: Soft. absent: Tenderness - Extremities Exam Extremities exam: Positive for: normal inspection. Negative for: tenderness - Neurological Exam Neurological exam: Altered - Skin Skin Exam: Erythema, Rash Results - Vital Signs Recent Vital Signs: Last Vital Signs Temp 97.9 F 06/23/18 08:00 Pulse 94 H 06/23/18 11:16 Resp 13 06/23/18 13:22 BP 123/73 06/23/18 11:16 Pulse Ox 98 06/23/18 11:16 - Labs Result Diagrams: 06/23/18 06:10 06/23/18 06:10 Labs: Laboratory Results - last 24 hr 06/22/18 06/22/18 06/22/18 13:42 13:42 16:28 WBC RBC Hgb Hct MCV MCH MCHC RDW Plt Count MPV Neut % (Auto) Lymph % (Auto) [place] % (Auto) Eos % (Auto) Baso % (Auto) Neut # (Auto) Lymph # (Auto) [place] # (Auto) Eos # (Auto) Baso # (Auto) Neutrophils % (Manual) Band Neutrophils % Lymphocytes % (Manual) Reactive Lymphs % Monocytes % (Manual) Metamyelocytes % Myelocytes % Toxic Granulation Platelet Estimate Large Platelets Hypochromasia (manual) Poikilocytosis (manual Target Cells [place] Cells Acanthocytes (Spur) Puncture Site pCO2 pO2 HCO3 ABG pH ABG Total CO2 ABG O2 Saturation ABG Base Excess ABG Hemoglobin ABG Carboxyhemoglobin POC ABG HHb (Measured) ABG Methemoglobin Osmany Test A-a O2 Difference Respiratory Index Hgb O2 Saturation Liter Flow Vent Mode FiO2 Sodium 138 Potassium 4.9 Chloride 100 Carbon Dioxide 25 Anion Gap 18 BUN 68 H Creatinine 2.9 H Est GFR ( Amer) 26 Est GFR (Non-Af Amer) 21 POC Glucose (mg/dL) Random Glucose 137 H D Calcium 9.6 Phosphorus Magnesium Total Bilirubin 0.6 AST 36 ALT 24 Alkaline Phosphatase 76 Total Protein 6.0 L Albumin 3.1 L Globulin 2.9 Albumin/Globulin Ratio 1.1 Amylase Lipase Urine Eosinophils Negative Random Vancomycin 11.5 06/23/18 06/23/18 06/23/18 05:14 06:10 06:10 WBC 23.1 H RBC 3.23 L Hgb 8.6 L Hct 26.8 L MCV 83.0 MCH 26.5 L MCHC 32.0 L RDW 14.8 H Plt Count 384 MPV 9.5 Neut % (Auto) 53.8 Lymph % (Auto) 41.1 H [place] % (Auto) 3.9 Eos % (Auto) 0.0 Baso % (Auto) 1.2 Neut # (Auto) 12.4 H Lymph # (Auto) 9.5 H [place] # (Auto) 0.9 H Eos # (Auto) 0.0 Baso # (Auto) 0.3 H Neutrophils % (Manual) 28 L Band Neutrophils % 36 H* Lymphocytes % (Manual) 19 L Reactive Lymphs % 1 H Monocytes % (Manual) 13 H Metamyelocytes % 1 H Myelocytes % 2 H Toxic Granulation Present Platelet Estimate Normal Large Platelets Present Hypochromasia (manual) Slight Poikilocytosis (manual Slight Target Cells Slight [place] Cells Moderate Acanthocytes (Spur) Slight Puncture Site Rr pCO2 41 pO2 127 H HCO3 26.4 ABG pH 7.42 ABG Total CO2 27.9 ABG O2 Saturation 99.9 H ABG Base Excess 1.9 ABG Hemoglobin 8.9 L ABG Carboxyhemoglobin 1.9 H POC ABG HHb (Measured) 0.1 ABG Methemoglobin 0.9 Osmany Test Pos A-a O2 Difference 321.0 Respiratory Index 2.5 Hgb O2 Saturation 97.0 Liter Flow 25.0 Vent Mode Prvc FiO2 70.0 Sodium 138 Potassium 3.9 Chloride 100 Carbon Dioxide 27 Anion Gap 16 BUN 65 H Creatinine 2.2 H Est GFR ( Amer) 36 Est GFR (Non-Af Amer) 29 POC Glucose (mg/dL) Random Glucose 137 H Calcium 9.4 Phosphorus 7.4 H Magnesium 2.4 H Total Bilirubin 0.6 AST 27 ALT 26 Alkaline Phosphatase 86 Total Protein 6.1 L Albumin 3.0 L Globulin 3.1 Albumin/Globulin Ratio 1.0 Amylase 54 Lipase 155 Urine Eosinophils Random Vancomycin 06/23/18 07:29 WBC RBC Hgb Hct MCV MCH MCHC RDW Plt Count MPV Neut % (Auto) Lymph % (Auto) [place] % (Auto) Eos % (Auto) Baso % (Auto) Neut # (Auto) Lymph # (Auto) [place] # (Auto) Eos # (Auto) Baso # (Auto) Neutrophils % (Manual) Band Neutrophils % Lymphocytes % (Manual) Reactive Lymphs % Monocytes % (Manual) Metamyelocytes % Myelocytes % Toxic Granulation Platelet Estimate Large Platelets Hypochromasia (manual) Poikilocytosis (manual Target Cells [place] Cells Acanthocytes (Spur) Puncture Site pCO2 pO2 HCO3 ABG pH ABG Total CO2 ABG O2 Saturation ABG Base Excess ABG Hemoglobin ABG Carboxyhemoglobin POC ABG HHb (Measured) ABG Methemoglobin Osmany Test A-a O2 Difference Respiratory Index Hgb O2 Saturation Liter Flow Vent Mode FiO2 Sodium Potassium Chloride Carbon Dioxide Anion Gap BUN Creatinine Est GFR ( Amer) Est GFR (Non-Af Amer) POC Glucose (mg/dL) 140 H Random Glucose Calcium Phosphorus Magnesium Total Bilirubin AST ALT Alkaline Phosphatase Total Protein Albumin Globulin Albumin/Globulin Ratio Amylase Lipase Urine Eosinophils Random Vancomycin Assessment & Plan (1) APL (acute promyelocytic leukemia) Status: Acute (2) Pneumonia Status: Acute (3) VIOLETTE (acute kidney injury) Status: Acute (4) Pneumonia Status: Acute (5) Mullins-Ildefonso disease Status: Acute - Assessment and Plan (Free Text) Plan: Agree with IV NS hydration; increase rate urine eos negative-likely not AIN Serial chemistries
[2018-06-23] MEDS ORDERED: Sodium Chloride 0.9% 1,000 ML IV SCH (13:43)
--- NOTE | 2018-06-23 13:46 | CP.PCM.PN ---
Subjective - Date & Time of Evaluation Date of Evaluation: 06/23/18 Time of Evaluation: 13:45 - Subjective Subjective: CHIEF COMPLAINTS TODAY : Patient appears to be in no acute distress. renal functions essentially remains the same. ROS. HEENT : N. Resp : No cough, wheezing ,pleuritic CP ,or hemoptysis Cardio : No anginal CP, PND, orthopnea, palpitation GI : No abd.pain, n/v ,diarrhea or GI bleeding . [employer] TESTER : No headache, vertigo, focal deficit. Musculoskel : No joint swelling , Derm rash all over the body Psych : Normal affect. Ext : No swelling ,calf pain PE. Pt. is alert awake in no distress. V.S As noted in the chart Head ,ear nose,throat and eyes : Normal. Neck : Supple with normal carotids. Lungs: Clear air entry. Heart : S1 & S2 normal with S4. No murmur. Abd : Soft non tender with normal bowel sounds. Neuro : Moves all ext. with no localized deficit. Ext : No edema with intact pulses.Non tender calves Derm : Generalized erythema with exfoliation LABS/RADIOLOGY:chest x-ray shows improvement on the left lung but worsening right l ASSESSMENT/PLAN : continue IV fluids and antibiotics. Local treatment for skin eruption Objective - Vital Signs/Intake and Output Vital Signs (last 24 hours): Temp Pulse Resp BP Pulse Ox 97.9 F 94 H 13 123/73 98 06/23/18 08:00 06/23/18 11:16 06/23/18 13:22 06/23/18 11:16 06/23/18 11:16 Intake and Output: 06/23/18 06/23/18 11:59 23:59 Intake Total 1350 Output Total 770 Balance 580 - Medications Medications: Current Medications Albuterol/Ipratropium (Duoneb 3 Mg/0.5 Mg (3 Ml) Ud) 3 ml INH RQ6 [facility] Last Admin: 06/23/18 13:21 Dose: 3 ml Allopurinol (Zyloprim) 100 mg PO DAILY [facility] Last Admin: 06/23/18 11:08 Dose: 100 mg Calcium Acetate (Phoslo) 667 mg GT TID [facility] Clotrimazole (Lotrimin 1%) 0 gm TOP BID [facility] Last Admin: 06/23/18 10:30 Dose: 1 appl Emollient Ointment (Vaseline Oint) 5 gm TOP Q6H PRN PRN Reason: Dry skin Last Admin: 06/23/18 10:09 Dose: 5 gm Gabapentin (Neurontin) 300 mg PO BID [facility] Last Admin: 06/23/18 10:09 Dose: 300 mg Guaifenesin (Mucinex La) 600 mg PO Q12H [facility] Last Admin: 06/23/18 06:13 Dose: Not Given Heparin Sodium (Porcine) (Heparin) 5,000 units SC Q8H [facility] Last Admin: 06/23/18 05:46 Dose: 5,000 units Linezolid (Zyvox 600mg/300ml D5w) 600 mg in 300 mls @ 200 mls/hr IVPB Q12H [facility]; Protocol Last Admin: 06/23/18 02:06 Dose: 200 mls/hr Meropenem 500 mg/ Sodium (Chloride) 100 mls @ 100 mls/hr IVPB Q12H [facility]; Protocol Last Admin: 06/23/18 04:06 Dose: 100 mls/hr Folic Acid 1 mg/ Thiamine HCl 100 mg/ Multivitamins/Vitamin C 10 ml/ Dextrose 1,011.2 mls @ 42 mls/hr IV .Q24H [facility] Multivitamins/Vitamin C 10 ml/Chromium/Copper/Manganese/Zinc 1 ml/ Amino Acids 1,011 mls @ 42 mls/hr IV .Q24H ONE Stop: 06/24/18 17:59 Sodium Chloride (Sodium Chloride 0.9%) 1,000 mls @ 125 mls/hr IV .Q8H [facility] Ondansetron HCl (Zofran Inj) 4 mg IVP Q6 PRN PRN Reason: Nausea/Vomiting Last Admin: 06/22/18 23:01 Dose: 4 mg Pantoprazole Sodium (Protonix Ec Tab) 40 mg PO DAILY [facility] Last Admin: 06/23/18 10:09 Dose: 40 mg Thiamine HCl (Vitamin B1 Inj) 200 mg IV Q8H [facility] Stop: 06/24/18 17:46 Last Admin: 06/23/18 10:09 Dose: 200 mg - Labs Labs: 06/23/18 06:10 06/23/18 06:10 PT 13.5 SECONDS (9.7-12.2) H 06/21/18 10:43 INR 1.2 06/21/18 10:43 APTT 29 SECONDS (21-34) 06/21/18 10:43
[2018-06-23] MEDS: Folic Acid 1 MG, Thiamine 100 MG, Multivitamin (MVI) 10 ML in Dextrose 5% In Water 1,00... IV SCH (13:55)
--- NOTE | 2018-06-23 16:45 | CT ---
Date of service: 06/23/2018 PROCEDURE: CT Abdomen and Pelvis with Oral contrast. HISTORY: nausea/vomitting COMPARISON: None.Comparison is made to the previous study dated 10/07/2017 TECHNIQUE: Contiguous axial images of the abdomen and pelvis. Oral contrast was administered. No IV contrast given. Coronal and Sagittal reformats generated. Radiation dose: Total exam DLP = 1103.11 mGy-cm. This CT exam was performed using one or more of the following dose reduction techniques: Automated exposure control, adjustment of the mA and/or kV according to patient size, and/or use of iterative reconstruction technique. FINDINGS: LOWER THORAX: Bilateral lower lobe opacities associated with air bronchogram slightly larger on the right suspicious for aspiration. Nodular opacities also noted at the right middle lobe which also may represent aspiration or infectious process. LIVER: Mild hepatomegaly is again noted. Possible cirrhotic manifestation of the liver. GALLBLADDER AND BILE DUCTS: The gallbladder is distended without CT evidence of acute cholecystitis. PANCREAS: Unremarkable. No mass. No ductal dilatation. SPLEEN: Very small spleen is again noted ADRENALS: Unremarkable. KIDNEYS AND URETERS: No evidence of nephrolithiasis or hydronephrosis. Again seen are bilateral renal cysts larger on the left. BLADDER: Tinajero catheter in the collapsed bladder is noted. REPRODUCTIVE: The prostate is mildly enlarged. APPENDIX: No evidence of appendicitis. BOWEL: High-grade small bowel obstruction due to incarcerated hernia in the left inguinal region. The stomach is distended. No definite evidence of pneumatosis or portal vein gas. No evidence of free air. PERITONEUM: No evidence of free fluid. LYMPH NODES: Bilateral inguinal lymphadenopathy are noted. VASCULATURE: Unremarkable. No aortic aneurysm. Diffuse foci of atherosclerotic calcification noted in the aorta and iliac arteries. BONES: No fracture or destructive lesion. OTHER FINDINGS: None. IMPRESSION: Findings suggestive of high-grade small bowel obstruction due to incarcerated hernia in the left inguinal region. Airspace opacities at the lower lobe and lung bases suspicious for aspiration. NG tube in the stomach. The stomach is mildly to moderately distended. The above findings were reported to nurse taking care of the patient Mrs. Tavarez at 4:30 p.m. on 06/23/2018.
--- NOTE | 2018-06-23 17:33 | CP.PCM.PN ---
Subjective - Date & Time of Evaluation Date of Evaluation: 06/23/18 Time of Evaluation: 17:33 - Subjective Subjective: CHIEF COMPLAINTS TODAY : events noted afebrile, pt has been vomiting since am +ve ngt with profuse dark greenish drainage Patient skin appears less erythematous /+ve scaly rash aii over w areas of denudation FAMILY AT BEDSIDE. ROS. ( on observation ) HEENT : N.+VE NGT WITH GREENISH DRAINAGE Resp : No cough, wheezing ,pleuritic CP ,or hemoptysis Cardio : No anginal CP, PND, orthopnea, palpitation GI : No abd.pain, n/v ,diarrhea or GI bleeding . SOFTWARE CLERK : No headache, vertigo, focal deficit. Musculoskel : No joint swelling , Derm rash all over the body Psych : Normal affect. Ext : No swelling ,calf pain PE. Pt. is LETHARGIC, in no distress. V.S As noted in the chart Head ,ear nose,throat and eyes : Normal.+VE NGT Neck : Supple with normal carotids. Lungs: DECREASED BREATH SOUNDS AT THE BASES, FEW RHONCHI RIGHT-SIDED. Heart : S1 & S2 normal with S4. No murmur. Abd : Soft non tender with normal bowel sounds. Neuro : Moves all ext. with no localized deficit. Ext : No edema with intact pulses.Non tender calves Derm : Generalized erythema with exfoliation LABS/RADIOLOGY: CT ABDOMEN/PELVIS WITH ORAL CONTRAST 06/23/19 -HIGH GRADE SBO/ WITH INCARCERATED LEFT INGUINAL HERNIA . wbc 23.4 SLIGHTLY BETTER W BANDEMIA CREAT 2.2 Objective - Vital Signs/Intake and Output Vital Signs (last 24 hours): Temp Pulse Resp BP Pulse Ox 97.9 F 94 H 13 123/73 98 06/23/18 08:00 06/23/18 11:16 06/23/18 15:25 06/23/18 11:16 06/23/18 11:16 Intake and Output: 06/23/18 06/23/18 06:59 18:59 Intake Total 1900 450 Output Total 520 490 Balance 1380 -40 - Medications Medications: Current Medications Albuterol/Ipratropium (Duoneb 3 Mg/0.5 Mg (3 Ml) Ud) 3 ml INH RQ6 [facility] Last Admin: 06/23/18 13:21 Dose: 3 ml Allopurinol (Zyloprim) 100 mg PO DAILY [facility] Last Admin: 06/23/18 11:08 Dose: 100 mg Calcium Acetate (Phoslo) 667 mg GT TIDCC [facility] Last Admin: 06/23/18 14:07 Dose: 667 mg Clotrimazole (Lotrimin 1%) 0 gm TOP BID [facility] Last Admin: 06/23/18 10:30 Dose: 1 appl Emollient Ointment (Vaseline Oint) 5 gm TOP Q6H PRN PRN Reason: Dry skin Last Admin: 06/23/18 10:09 Dose: 5 gm Gabapentin (Neurontin) 300 mg PO BID [facility] Last Admin: 06/23/18 10:09 Dose: 300 mg Guaifenesin (Mucinex La) 600 mg PO Q12H [facility] Last Admin: 06/23/18 06:13 Dose: Not Given Heparin Sodium (Porcine) (Heparin) 5,000 units SC Q8H [facility] Last Admin: 06/23/18 14:07 Dose: 5,000 units Hydrocortisone Sodium Succinate (Solu-Cortef) 100 mg IV DAILY [facility] Linezolid (Zyvox 600mg/300ml D5w) 600 mg in 300 mls @ 200 mls/hr IVPB Q12H [facility]; Protocol Last Admin: 06/23/18 14:08 Dose: 200 mls/hr Meropenem 500 mg/ Sodium (Chloride) 100 mls @ 100 mls/hr IVPB Q12H [facility]; Protocol Last Admin: 06/23/18 16:08 Dose: 100 mls/hr Folic Acid 1 mg/ Thiamine HCl 100 mg/ Multivitamins/Vitamin C 10 ml/ Dextrose 1,011.2 mls @ 42 mls/hr IV .Q24H [facility] Last Admin: 06/23/18 13:55 Dose: 42 mls/hr Multivitamins/Vitamin C 10 ml/Chromium/Copper/Manganese/Zinc 1 ml/ Amino Acids 1,011 mls @ 42 mls/hr IV .Q24H [facility] Stop: 06/24/18 17:59 Sodium Chloride (Sodium Chloride 0.9%) 1,000 mls @ 125 mls/hr IV .Q8H [facility] Ondansetron HCl (Zofran Inj) 4 mg IVP Q6 PRN PRN Reason: Nausea/Vomiting Last Admin: 12/27/18 23:01 Dose: 4 mg Pantoprazole Sodium (Protonix Ec Tab) 40 mg PO DAILY [facility] Last Admin: 06/23/18 10:09 Dose: 40 mg Thiamine HCl (Vitamin B1 Inj) 200 mg IV Q8H [facility] Stop: 06/24/18 17:46 Last Admin: 06/23/18 10:09 Dose: 200 mg - Labs Labs: 06/23/18 06:10 06/23/18 06:10 PT 13.5 SECONDS (9.7-12.2) H 06/21/18 10:43 INR 1.2 06/21/18 10:43 APTT 29 SECONDS (21-34) 06/21/18 10:43 Assessment and Plan (1) SBO (small bowel obstruction) Status: Acute (2) Incarcerated left inguinal hernia Status: Acute (3) Pneumonia Status: Acute (4) Leukocytosis Status: Acute (5) Generalized rash Status: Acute (6) APL (acute promyelocytic leukemia) Status: Acute (7) Azotemia Status: Acute - Assessment and Plan (Free Text) Plan: CONTINUE mERREM 500 MG EVERY 12 HOURLY 06/22/18. CONTINUE IV ZYVOX 600 MG EVERY 12 HOURLY 06/22/18 ADD IV FLAGYL 500MG IV Q 8HRLY 06/23/18 F/U RENAL FUNCTION CLOSELY. F/U CULTURES TO ADJUST ANTIBIOTICS. SURGICAL CONSULT IN PROGRESS. CASE DISCUSSED WITH RESIDENT.
[2018-06-23] MEDS ORDERED: PPN #1 IV ONE (18:00)
--- NOTE | 2018-06-23 18:14 | CP.PCM.CON ---
History of Present Illness - History of Present Illness History of Present Illness: Surgery Consult note. Dr. Garvin 73yo M with PMHx of HTN and Acute Promyelocytic Lukemia who was admitted on 06/21 for aspiration pneumonia and sepsis. Patient is a snf resident and last reported BM was on 06/20, no reports of blood or melena. Patient started having bilious emesis and NGT was started last night. CT Abd/Pelvis was performed today with evidence of high grade SBO with incarcerated left inguinal hernia. Patient currently complains of mild tenderness at the left groin. Still with some SOB and cough, no CP. Also reports scaly skin which the family states has been present for a few months but has gotten worse recently. Denies any other complaints. PMHx: HTN, Acute Promyelocytic Lukemia PSHx: Right inguinal hernia repair, Colon surgery Family Hx: Denies Social Hx: jail resident. Denies tobacco use, denies etoh, denies illicit drugs NKDA Review of Systems - Review of Systems All systems: reviewed and no additional remarkable complaints except - Constitutional Constitutional: absent: Fever - Cardiovascular Cardiovascular: absent: Chest Pain, Dyspnea - Respiratory Respiratory: Cough, Dyspnea - Gastrointestinal Gastrointestinal: Abdominal Pain, Nausea, Vomiting. absent: Hematemesis, Hematochezia - Genitourinary Genitourinary: absent: Dysuria - Musculoskeletal Musculoskeletal: absent: Back Pain - Neurological Neurological: absent: Dizziness - Hematologic/Lymphatic Hematologic: Lymphadenopathy Past Patient History - Past Medical History & Family History Past Medical History?: Yes Past Family History: Reviewed and not pertinent - Past Social History Smoking Status: Former Smoker Chewing Tobacco Use: No Cigar Use: No Alcohol: None Drugs: Denies Home Situation {Lives}: Half-Way - CARDIAC Hx Hypercholesterolemia: Yes Hx Hypertension: Yes - NEUROLOGICAL Hx Transient Ischemic Attacks (TIA): No - HEENT Hx Cataracts: Yes (rehan) - HEMATOLOGICAL/ONCOLOGICAL Hx Blood Disorders: Yes Hx Leukemia: Yes (IN REMISSION) - INTEGUMENTARY Hx Dermatological Problems: Yes Hx Eczema: Yes (ALL OVER BODY) - MUSCULOSKELETAL/RHEUMATOLOGICAL Hx Fractures: No - GASTROINTESTINAL Hx Gastrointestinal Disorders: Yes Hx Bowel Surgery: Yes (2X RESECTION OF 2 LARGE, BENIGN POLYPS) - PSYCHIATRIC Hx Substance Use: No - SURGICAL HISTORY Hx Surgeries: Yes Hx Herniorrhaphy: Yes (RIGHT GROIN) - ANESTHESIA Hx Anesthesia: Yes Hx Anesthesia Reactions: No Hx Malignant Hyperthermia: No Meds Allergies/Adverse Reactions: Allergies Allergy/AdvReac Type Severity Reaction Status Date / Time No Known Allergies Allergy Verified 02/14/17 07:07 - Medications Medications: Current Medications Albuterol/Ipratropium (Duoneb 3 Mg/0.5 Mg (3 Ml) Ud) 3 ml INH RQ6 [facility] Last Admin: 06/23/18 13:21 Dose: 3 ml Allopurinol (Zyloprim) 100 mg PO DAILY [facility] Last Admin: 06/23/18 11:08 Dose: 100 mg Calcium Acetate (Phoslo) 667 mg GT TIDCC [facility] Last Admin: 06/23/18 18:03 Dose: Not Given Clotrimazole (Lotrimin 1%) 0 gm TOP BID [facility] Last Admin: 06/23/18 10:30 Dose: 1 appl Emollient Ointment (Vaseline Oint) 5 gm TOP Q6H PRN PRN Reason: Dry skin Last Admin: 06/23/18 10:09 Dose: 5 gm Gabapentin (Neurontin) 300 mg PO BID [facility] Last Admin: 06/23/18 18:02 Dose: Not Given Guaifenesin (Mucinex La) 600 mg PO Q12H [facility] Last Admin: 06/23/18 18:07 Dose: Not Given Heparin Sodium (Porcine) (Heparin) 5,000 units SC Q8H [facility] Last Admin: 06/23/18 14:07 Dose: 5,000 units Hydrocortisone Sodium Succinate (Solu-Cortef) 100 mg IV DAILY [facility] Last Admin: 06/23/18 18:11 Dose: 100 mg Linezolid (Zyvox 600mg/300ml D5w) 600 mg in 300 mls @ 200 mls/hr IVPB Q12H [facility]; Protocol Last Admin: 06/23/18 14:08 Dose: 200 mls/hr Meropenem 500 mg/ Sodium (Chloride) 100 mls @ 100 mls/hr IVPB Q12H [facility]; Protocol Last Admin: 06/23/18 16:08 Dose: 100 mls/hr Folic Acid 1 mg/ Thiamine HCl 100 mg/ Multivitamins/Vitamin C 10 ml/ Dextrose 1,011.2 mls @ 42 mls/hr IV .Q24H [facility] Last Admin: 06/23/18 13:55 Dose: 42 mls/hr Multivitamins/Vitamin C 10 ml/Chromium/Copper/Manganese/Zinc 1 ml/ Amino Acids 1,011 mls @ 42 mls/hr IV .Q24H [facility] Stop: 06/24/18 17:59 Last Admin: 06/23/18 18:11 Dose: 42 mls/hr Sodium Chloride (Sodium Chloride 0.9%) 1,000 mls @ 125 mls/hr IV .Q8H [facility] Metronidazole (Flagyl) 500 mg in 100 mls @ 100 mls/hr IVPB Q8H [facility]; Protocol Ondansetron HCl (Zofran Inj) 4 mg IVP Q6 PRN PRN Reason: Nausea/Vomiting Last Admin: 06/22/18 23:01 Dose: 4 mg Pantoprazole Sodium (Protonix Ec Tab) 40 mg PO DAILY [facility] Last Admin: 06/23/18 10:09 Dose: 40 mg Thiamine HCl (Vitamin B1 Inj) 200 mg IV Q8H [facility] Stop: 06/24/18 17:46 Last Admin: 06/23/18 18:10 Dose: 200 mg Physical Exam - Constitutional Appears: Older Than Stated Age, Chronically Ill - Head Exam Head Exam: ATRAUMATIC, NORMAL INSPECTION, NORMOCEPHALIC - Eye Exam Eye Exam: EOMI, Normal appearance. absent: Scleral icterus - ENT Exam ENT Exam: Mucous Membranes Dry - Respiratory Exam Additional comments: on HiFlo NC - Cardiovascular Exam Cardiovascular Exam: Tachycardia - GI/Abdominal Exam GI & Abdominal Exam: Distended, Hernia (left inguinal hernia. No skin changes noted.). absent: Firm, Guarding, Rebound, Rigid - Extremities Exam Extremities exam: Positive for: normal inspection - Neurological Exam Neurological exam: Alert - Skin Additional comments: Diffuse scaly skin Results - Vital Signs Recent Vital Signs: Last Vital Signs Temp 97.9 F 06/23/18 08:00 Pulse 94 H 06/23/18 11:16 Resp 13 06/23/18 15:25 BP 123/73 06/23/18 11:16 Pulse Ox 98 06/23/18 11:16 - Labs Result Diagrams: 06/23/18 06:10 06/23/18 06:10 Labs: Laboratory Results - last 24 hr 06/23/18 06/23/18 06/23/18 05:14 06:10 06:10 WBC 23.1 H RBC 3.23 L Hgb 8.6 L Hct 26.8 L MCV 83.0 MCH 26.5 L MCHC 32.0 L RDW 14.8 H Plt Count 384 MPV 9.5 Neut % (Auto) 53.8 Lymph % (Auto) 41.1 H Juncos % (Auto) 3.9 Eos % (Auto) 0.0 Baso % (Auto) 1.2 Neut # (Auto) 12.4 H Lymph # (Auto) 9.5 H Jun[place] # (Auto) 0.9 H Eos # (Auto) 0.0 Baso # (Auto) 0.3 H Neutrophils % (Manual) 28 L Band Neutrophils % 36 H* Lymphocytes % (Manual) 19 L Reactive Lymphs % 1 H Monocytes % (Manual) 13 H Metamyelocytes % 1 H Myelocytes % 2 H Toxic Granulation Present Platelet Estimate Normal Large Platelets Present Hypochromasia (manual) Slight Poikilocytosis (manual Slight Target Cells Slight Huslia Cells Moderate Acanthocytes (Spur) Slight Puncture Site Rr pCO2 41 pO2 127 H HCO3 26.4 ABG pH 7.42 ABG Total CO2 27.9 ABG O2 Saturation 99.9 H ABG Base Excess 1.9 ABG Hemoglobin 8.9 L ABG Carboxyhemoglobin 1.9 H POC ABG HHb (Measured) 0.1 ABG Methemoglobin 0.9 Osmany Test Pos A-a O2 Difference 321.0 Respiratory Index 2.5 Hgb O2 Saturation 97.0 Liter Flow 25.0 Vent Mode Prvc FiO2 70.0 Sodium 138 Potassium 3.9 Chloride 100 Carbon Dioxide 27 Anion Gap 16 BUN 65 H Creatinine 2.2 H Est GFR ( Amer) 36 Est GFR (Non-Af Amer) 29 POC Glucose (mg/dL) Random Glucose 137 H Calcium 9.4 Phosphorus 7.4 H Magnesium 2.4 H Total Bilirubin 0.6 AST 27 ALT 26 Alkaline Phosphatase 86 Total Protein 6.1 L Albumin 3.0 L Globulin 3.1 Albumin/Globulin Ratio 1.0 Amylase 54 Lipase 155 06/23/18 07:29 WBC RBC Hgb Hct MCV MCH MCHC RDW Plt Count MPV Neut % (Auto) Lymph % (Auto) Jun[place] % (Auto) Eos % (Auto) Baso % (Auto) Neut # (Auto) Lymph # (Auto) [place] # (Auto) Eos # (Auto) Baso # (Auto) Neutrophils % (Manual) Band Neutrophils % Lymphocytes % (Manual) Reactive Lymphs % Monocytes % (Manual) Metamyelocytes % Myelocytes % Toxic Granulation Platelet Estimate Large Platelets Hypochromasia (manual) Poikilocytosis (manual Target Cells Huslia Cells Acanthocytes (Spur) Puncture Site pCO2 pO2 HCO3 ABG pH ABG Total CO2 ABG O2 Saturation ABG Base Excess ABG Hemoglobin ABG Carboxyhemoglobin POC ABG HHb (Measured) ABG Methemoglobin Osmany Test A-a O2 Difference Respiratory Index Hgb O2 Saturation Liter Flow Vent Mode FiO2 Sodium Potassium Chloride Carbon Dioxide Anion Gap BUN Creatinine Est GFR ( Amer) Est GFR (Non-Af Amer) POC Glucose (mg/dL) 140 H Random Glucose Calcium Phosphorus Magnesium Total Bilirubin AST ALT Alkaline Phosphatase Total Protein Albumin Globulin Albumin/Globulin Ratio Amylase Lipase Assessment & Plan - Assessment and Plan (Free Text) Assessment: 73yo M with incarcerated left inguinal hernia and SBO Plan: - Left inguinal hernia reduced - f/u lactate - f/u bowel function - Continue NGT to low continuous suction - Strict Is and Os - medical maximization as per ICU and primary team Further recs as per Dr. Bharathi Castañeda PGY2 surgery
[2018-06-23] MEDS: metroNIDAZOLE IV 500 mg/100 ml 500 MG/100 ML BAG IVPB SCH (18:37)
[2018-06-24] MEDS: Albuterol-Ipratrop 3 mg / 0.5 (3 ml) UD INH SCH ×4 (01:42→20:14)
[2018-06-24] MEDS: Linezolid 600 mg in D5W 300 ml 600 MG/300 ML BAG IVPB SCH ×2 (01:54→13:57)
[2018-06-24] MEDS: metroNIDAZOLE IV 500 mg/100 ml 500 MG/100 ML BAG IVPB SCH ×3 (03:43→19:00)
[2018-06-24] MEDS: Thiamine 100 mg/ml Inj IV SCH ×3 (03:44→16:53)
[2018-06-24] MEDS: Meropenem 500 MG in Sodium Chloride 0.9% 100 ML IVPB SCH ×2 (04:30→15:29)
[2018-06-24 05:42] LABS: BASO # 0.2 K/uL (0.0-0.2); BASO % 1.2 % (0.0-2.0); LYMPH # 4.3 K/uL (1.0-4.3); LYMPH % 30.3 % (20.0-40.0); MEAN CELL VOLUME 84.1 fL (80.0-94.0); MEAN CORPUSCULAR HEMOGLOBIN 26.6 pg (27.0-31.0); MEAN CORPUSCULAR HGB CONC 31.7 g/dL (33.0-37.0); MEAN PLATELET VOLUME 9.7 fL (7.2-11.7); MONO # 0.7 K/uL (0.0-0.8); MONO % 4.9 % (0.0-10.0); NEUT % 63.6 % (50.0-75.0); NRBC % 0.9 % (0.0-2.0); RBC 3.02 Mil/uL (4.40-5.90); RED CELL DISTRIBUTION WIDTH 14.8 % (11.5-14.5); WHITE BLOOD COUNT 14.2 K/uL (4.8-10.8)
[2018-06-24 06:01] LABS: ALB/GLOB RATIO 0.9 (1.0-2.1); ALBUMIN 2.8 g/dL (3.5-5.0); ALT/SGPT 24 U/L (21-72); AST/SGOT 23 U/L (17-59); BLOOD UREA NITROGEN 47 mg/dL (9-20); CALCIUM 9.1 mg/dl (8.6-10.4); GFR NON-AFRICAN AMERICAN 59
--- NOTE | 2018-06-24 07:40 | CP.PCM.PN ---
Subjective - Date & Time of Evaluation Date of Evaluation: 06/24/18 Time of Evaluation: 07:05 - Subjective Subjective: Surgery Progress note. Dr. Garvin Pt seen and examined at bedside. No acute events overnight. L inguinal hernia reduced yesterday. Lactate this morning 1.8 (wnl). No BM as of right now. Abd distention improved slightly. Denies any abd pain. NGT in place with bilious output noted. Objective - Vital Signs/Intake and Output Vital Signs (last 24 hours): Temp Pulse Resp BP Pulse Ox 99.8 F H 89 15 130/55 L 99 06/24/18 04:00 06/24/18 06:00 06/24/18 06:20 06/24/18 05:17 06/24/18 06:00 Intake and Output: 06/24/18 06/24/18 06:59 18:59 Intake Total 1508 Output Total 990 Balance 518 - Medications Medications: Current Medications Albuterol/Ipratropium (Duoneb 3 Mg/0.5 Mg (3 Ml) Ud) 3 ml INH RQ6 [facility] Last Admin: 06/24/18 01:42 Dose: 3 ml Allopurinol (Zyloprim) 100 mg PO DAILY [facility] Last Admin: 06/23/18 11:08 Dose: 100 mg Calcium Acetate (Phoslo) 667 mg GT TIDCC [facility] Last Admin: 06/23/18 18:03 Dose: Not Given Clotrimazole (Lotrimin 1%) 0 gm TOP BID [facility] Last Admin: 06/23/18 18:35 Dose: 1 appl Emollient Ointment (Vaseline Oint) 5 gm TOP Q6H PRN PRN Reason: Dry skin Last Admin: 06/23/18 18:49 Dose: 5 gm Gabapentin (Neurontin) 300 mg PO BID [facility] Last Admin: 06/23/18 18:02 Dose: Not Given Guaifenesin (Mucinex La) 600 mg PO Q12H [facility] Last Admin: 06/23/18 18:07 Dose: Not Given Heparin Sodium (Porcine) (Heparin) 5,000 units SC Q8H [facility] Last Admin: 06/24/18 05:23 Dose: 5,000 units Hydrocortisone Sodium Succinate (Solu-Cortef) 100 mg IV DAILY [facility] Last Admin: 06/23/18 18:11 Dose: 100 mg Linezolid (Zyvox 600mg/300ml D5w) 600 mg in 300 mls @ 200 mls/hr IVPB Q12H [facility]; Protocol Last Admin: 06/24/18 01:54 Dose: 200 mls/hr Meropenem 500 mg/ Sodium (Chloride) 100 mls @ 100 mls/hr IVPB Q12H [facility]; Protocol Last Admin: 06/24/18 04:30 Dose: 100 mls/hr Folic Acid 1 mg/ Thiamine HCl 100 mg/ Multivitamins/Vitamin C 10 ml/ Dextrose 1,011.2 mls @ 42 mls/hr IV .Q24H [facility] Last Admin: 06/23/18 13:55 Dose: 42 mls/hr Multivitamins/Vitamin C 10 ml/Chromium/Copper/Manganese/Zinc 1 ml/ Amino Acids 1,011 mls @ 42 mls/hr IV .Q24H [facility] Stop: 06/24/18 17:59 Last Admin: 06/23/18 18:11 Dose: 42 mls/hr Metronidazole (Flagyl) 500 mg in 100 mls @ 100 mls/hr IVPB Q8H [facility]; Protocol Last Admin: 06/24/18 03:43 Dose: 100 mls/hr Ondansetron HCl (Zofran Inj) 4 mg IVP Q6 PRN PRN Reason: Nausea/Vomiting Last Admin: 06/22/18 23:01 Dose: 4 mg Pantoprazole Sodium (Protonix Inj) 40 mg IVP DAILY [facility] Thiamine HCl (Vitamin B1 Inj) 200 mg IV Q8H [facility] Stop: 06/24/18 17:46 Last Admin: 06/24/18 03:44 Dose: 200 mg - Labs Labs: 06/24/18 05:38 06/24/18 05:38 PT 13.5 SECONDS (9.7-12.2) H 06/21/18 10:43 INR 1.2 06/21/18 10:43 APTT 29 SECONDS (21-34) 06/21/18 10:43 - Constitutional Appears: Non-toxic, No Acute Distress - Head Exam Head Exam: ATRAUMATIC, NORMAL INSPECTION, NORMOCEPHALIC - Eye Exam Eye Exam: EOMI, Normal appearance - ENT Exam ENT Exam: Mucous Membranes Moist - Respiratory Exam Respiratory Exam: NORMAL BREATHING PATTERN. absent: Accessory Muscle Use, Respiratory Distress - Cardiovascular Exam Cardiovascular Exam: absent: JVD - GI/Abdominal Exam GI & Abdominal Exam: Soft. absent: Distended, Guarding, Rigid, Tenderness, Hernia, Rebound - Extremities Exam Extremities Exam: Normal Inspection. absent: Calf Tenderness - Skin Additional comments: Dry scaly skin diffusely Assessment and Plan - Assessment and Plan (Free Text) Assessment: 73yo M with SBO secondary to incarcerated left inguinal hernia Plan: - No acute surgical intervention warranted at this time - Hernia reduced yesterday, 06/23. Lactate 1.8 - Please call surgical team if hernia recurs - Continue all management as per Primary and ICU teams. Further recs as per Dr. Bharathi Castañeda PGY2 Surgery
--- NOTE | 2018-06-24 07:59 | CP.PCM.PN ---
Subjective - Date & Time of Evaluation Date of Evaluation: 06/24/18 Time of Evaluation: 07:59 - Subjective Subjective: Patient less drowsy, (-)bdominal pain imrpoved, no BM/flatus Objective - Vital Signs/Intake and Output Vital Signs (last 24 hours): Temp Pulse Resp BP Pulse Ox 99.8 F H 89 15 130/55 L 99 06/24/18 04:00 06/24/18 06:00 06/24/18 06:20 06/24/18 05:17 06/24/18 06:00 Intake and Output: 06/24/18 06/24/18 06:59 18:59 Intake Total 1508 Output Total 990 Balance 518 - Medications Medications: Current Medications Albuterol/Ipratropium (Duoneb 3 Mg/0.5 Mg (3 Ml) Ud) 3 ml INH RQ6 [facility] Last Admin: 06/24/18 01:42 Dose: 3 ml Allopurinol (Zyloprim) 100 mg PO DAILY [facility] Last Admin: 06/23/18 11:08 Dose: 100 mg Calcium Acetate (Phoslo) 667 mg GT TIDCC [facility] Last Admin: 06/23/18 18:03 Dose: Not Given Clotrimazole (Lotrimin 1%) 0 gm TOP BID [facility] Last Admin: 06/23/18 18:35 Dose: 1 appl Emollient Ointment (Vaseline Oint) 5 gm TOP Q6H PRN PRN Reason: Dry skin Last Admin: 06/23/18 18:49 Dose: 5 gm Gabapentin (Neurontin) 300 mg PO BID [facility] Last Admin: 06/23/18 18:02 Dose: Not Given Guaifenesin (Mucinex La) 600 mg PO Q12H [facility] Last Admin: 06/23/18 18:07 Dose: Not Given Heparin Sodium (Porcine) (Heparin) 5,000 units SC Q8H [facility] Last Admin: 06/24/18 05:23 Dose: 5,000 units Hydrocortisone Sodium Succinate (Solu-Cortef) 100 mg IV DAILY [facility] Last Admin: 06/23/18 18:11 Dose: 100 mg Linezolid (Zyvox 600mg/300ml D5w) 600 mg in 300 mls @ 200 mls/hr IVPB Q12H [facility]; Protocol Last Admin: 06/24/18 01:54 Dose: 200 mls/hr Meropenem 500 mg/ Sodium (Chloride) 100 mls @ 100 mls/hr IVPB Q12H [facility]; Protocol Last Admin: 06/24/18 04:30 Dose: 100 mls/hr Folic Acid 1 mg/ Thiamine HCl 100 mg/ Multivitamins/Vitamin C 10 ml/ Dextrose 1,011.2 mls @ 42 mls/hr IV .Q24H [facility] Last Admin: 06/23/18 13:55 Dose: 42 mls/hr Multivitamins/Vitamin C 10 ml/Chromium/Copper/Manganese/Zinc 1 ml/ Amino Acids 1,011 mls @ 42 mls/hr IV .Q24H [facility] Stop: 06/24/18 17:59 Last Admin: 06/23/18 18:11 Dose: 42 mls/hr Metronidazole (Flagyl) 500 mg in 100 mls @ 100 mls/hr IVPB Q8H [facility]; Protocol Last Admin: 06/24/18 03:43 Dose: 100 mls/hr Ondansetron HCl (Zofran Inj) 4 mg IVP Q6 PRN PRN Reason: Nausea/Vomiting Last Admin: 06/22/18 23:01 Dose: 4 mg Pantoprazole Sodium (Protonix Inj) 40 mg IVP DAILY [facility] Thiamine HCl (Vitamin B1 Inj) 200 mg IV Q8H [facility] Stop: 06/24/18 17:46 Last Admin: 06/24/18 03:44 Dose: 200 mg - Labs Labs: 06/24/18 05:38 06/24/18 05:38 PT 13.5 SECONDS (9.7-12.2) H 06/21/18 10:43 INR 1.2 06/21/18 10:43 APTT 29 SECONDS (21-34) 06/21/18 10:43 - Head Exam Head Exam: ATRAUMATIC, NORMAL INSPECTION - Eye Exam Eye Exam: EOMI - Respiratory Exam Respiratory Exam: Clear to Ausculation Bilateral, NORMAL BREATHING PATTERN - Cardiovascular Exam Cardiovascular Exam: REGULAR RHYTHM, +S1, +S2 - Extremities Exam Extremities Exam: Normal Inspection, Pedal Edema - Neurological Exam Neurological Exam: Alert, CN II-XII Intact, Oriented x3 - Skin Additional comments: desquamative overa ll body parts Assessment and Plan - Assessment and Plan (Free Text) Assessment: -VIOLETTE: resolving, continue IVF -high grade ileuis: lactic normal, dulcolax x1, ng clamped -surgery input appreciated -lobar PNA: GNR in sputum is berg sensitive E. coli, de-escalate as per ID -continue IVF -PT/OT -heme/onc input regarding -vigorous pulmonary toilet -FiO2 changed from 70 to 45%, humidified oxygen to help mobilize secretions -OOOB to chair
[2018-06-24] MEDS: Clotrimazole 1% Cream(30 gm) TOP SCH ×2 (09:13→16:59)
--- NOTE | 2018-06-24 12:10 | CP.PCM.PN ---
Subjective - Date & Time of Evaluation Date of Evaluation: 06/24/18 Time of Evaluation: 12:08 - Subjective Subjective: labs reviewed improved renal function good u/o no acute events Objective - Vital Signs/Intake and Output Vital Signs (last 24 hours): Temp Pulse Resp BP Pulse Ox 99.8 F H 82 11 L 114/63 97 06/24/18 04:00 06/24/18 10:17 06/24/18 10:17 06/24/18 10:17 06/24/18 10:17 Intake and Output: 06/24/18 06/24/18 06:59 18:59 Intake Total 1508 Output Total 990 Balance 518 - Medications Medications: Current Medications Albuterol/Ipratropium (Duoneb 3 Mg/0.5 Mg (3 Ml) Ud) 3 ml INH RQ6 [facility] Last Admin: 06/24/18 07:45 Dose: 3 ml Allopurinol (Zyloprim) 100 mg PO DAILY [facility] Last Admin: 06/24/18 09:09 Dose: 100 mg Calcium Acetate (Phoslo) 667 mg GT TIDCC [facility] Last Admin: 06/23/18 18:03 Dose: Not Given Clotrimazole (Lotrimin 1%) 0 gm TOP BID [facility] Last Admin: 06/24/18 09:13 Dose: 1 appl Emollient Ointment (Vaseline Oint) 5 gm TOP Q6H PRN PRN Reason: Dry skin Last Admin: 06/23/18 18:49 Dose: 5 gm Gabapentin (Neurontin) 300 mg PO BID [facility] Last Admin: 06/23/18 18:02 Dose: Not Given Guaifenesin (Mucinex La) 600 mg PO Q12H [facility] Last Admin: 06/23/18 18:07 Dose: Not Given Heparin Sodium (Porcine) (Heparin) 5,000 units SC Q8H [facility] Last Admin: 06/24/18 05:23 Dose: 5,000 units Hydrocortisone Sodium Succinate (Solu-Cortef) 100 mg IV DAILY [facility] Last Admin: 06/24/18 09:12 Dose: 100 mg Linezolid (Zyvox 600mg/300ml D5w) 600 mg in 300 mls @ 200 mls/hr IVPB Q12H [facility]; Protocol Last Admin: 06/24/18 01:54 Dose: 200 mls/hr Meropenem 500 mg/ Sodium (Chloride) 100 mls @ 100 mls/hr IVPB Q12H [facility]; Protocol Last Admin: 06/24/18 04:30 Dose: 100 mls/hr Folic Acid 1 mg/ Thiamine HCl 100 mg/ Multivitamins/Vitamin C 10 ml/ Dextrose 1,011.2 mls @ 42 mls/hr IV .Q24H [facility] Last Admin: 06/23/18 13:55 Dose: 42 mls/hr Multivitamins/Vitamin C 10 ml/Chromium/Copper/Manganese/Zinc 1 ml/ Amino Acids 1,011 mls @ 42 mls/hr IV .Q24H [facility] Stop: 06/24/18 17:59 Last Admin: 06/23/18 18:11 Dose: 42 mls/hr Metronidazole (Flagyl) 500 mg in 100 mls @ 100 mls/hr IVPB Q8H [facility]; Protocol Last Admin: 06/24/18 03:43 Dose: 100 mls/hr Multivitamins/Vitamin C 10 ml/Chromium/Copper/Manganese/Zinc 1 ml/ Amino Acids 1,011 mls @ 42 mls/hr IV .Q24H [facility] Stop: 06/25/18 17:59 Ondansetron HCl (Zofran Inj) 4 mg IVP Q6 PRN PRN Reason: Nausea/Vomiting Last Admin: 06/22/18 23:01 Dose: 4 mg Pantoprazole Sodium (Protonix Inj) 40 mg IVP DAILY [facility] Last Admin: 06/24/18 09:13 Dose: 40 mg Tamsulosin HCl (Flomax) 0.4 mg PO DAILY [facility] Thiamine HCl (Vitamin B1 Inj) 200 mg IV Q8H [facility] Stop: 06/24/18 17:46 Last Admin: 06/24/18 09:12 Dose: 200 mg - Labs Labs: 06/24/18 05:38 06/24/18 05:38 PT 13.5 SECONDS (9.7-12.2) H 06/21/18 10:43 INR 1.2 06/21/18 10:43 APTT 29 SECONDS (21-34) 06/21/18 10:43 - Constitutional Appears: Confused, Chronically Ill - Head Exam Head Exam: ATRAUMATIC, NORMAL INSPECTION - Eye Exam Eye Exam: EOMI, Normal appearance - ENT Exam ENT Exam: Mucous Membranes Moist - Respiratory Exam Respiratory Exam: Decreased Breath Sounds. absent: Accessory Muscle Use - Cardiovascular Exam Cardiovascular Exam: REGULAR RHYTHM. absent: Rubs - GI/Abdominal Exam GI & Abdominal Exam: Soft. absent: Tenderness - Skin Additional comments: diffusely desquamated Assessment and Plan - Assessment and Plan (Free Text) Assessment: [place] associated with sepsis and drug rash improved with ivf continue to monitor
[2018-06-24] MEDS: Folic Acid 1 MG, Thiamine 100 MG, Multivitamin (MVI) 10 ML in Dextrose 5% In Water 1,00... IV SCH (13:53)
--- NOTE | 2018-06-24 14:29 | CP.PCM.PN ---
Subjective - Date & Time of Evaluation Date of Evaluation: 06/24/18 Time of Evaluation: 14:27 - Subjective Subjective: CHIEF COMPLAINTS TODAY : Yesterday patient had excess amount of vomiting. CT of the abdomen showed left inguinal incarcerated hernia with small bowel obstruction. Surgical consultation was obtained. Left inguinal hernia was manually reduced. Since that procedure patient has improved no further vomiting renal function is improving and also the acidosis. ROS. HEENT : N. Resp : No cough, wheezing ,pleuritic CP ,or hemoptysis Cardio : No anginal CP, PND, orthopnea, palpitation GI : No abd.pain, n/v ,diarrhea or GI bleeding . 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 Musculoskel : No joint swelling , Derm rash all over the body Psych : Normal affect. Ext : No swelling ,calf pain PE. Pt. is alert awake in no distress. V.S As noted in the chart Head ,ear nose,throat and eyes : Normal. Neck : Supple with normal carotids. Lungs: Clear air entry. Heart : S1 & S2 normal with S4. No murmur. Abd : Soft non tender with normal bowel sounds. Neuro : Moves all ext. with no localized deficit. Ext : No edema with intact pulses.Non tender calves Derm : Generalized erythema with exfoliation LABS/RADIOLOGY ASSESSMENT/PLAN : continue IV fluids and antibiotics Monitor GI system. Objective - Vital Signs/Intake and Output Vital Signs (last 24 hours): Temp Pulse Resp BP Pulse Ox 99.8 F H 82 11 L 114/63 97 06/24/18 04:00 06/24/18 10:17 06/24/18 10:17 06/24/18 10:17 06/24/18 10:17 Intake and Output: 06/24/18 06/24/18 11:59 23:59 Intake Total 1088 Output Total 730 Balance 358 - Medications Medications: Current Medications Albuterol/Ipratropium (Duoneb 3 Mg/0.5 Mg (3 Ml) Ud) 3 ml INH RQ6 [facility] Last Admin: 06/24/18 12:50 Dose: 3 ml Allopurinol (Zyloprim) 100 mg PO DAILY [facility] Last Admin: 06/24/18 09:09 Dose: 100 mg Calcium Acetate (Phoslo) 667 mg GT TIDCC [facility] Last Admin: 06/23/18 18:03 Dose: Not Given Clotrimazole (Lotrimin 1%) 0 gm TOP BID [facility] Last Admin: 06/24/18 09:13 Dose: 1 appl Emollient Ointment (Vaseline Oint) 5 gm TOP Q6H PRN PRN Reason: Dry skin Last Admin: 06/23/18 18:49 Dose: 5 gm Gabapentin (Neurontin) 300 mg PO BID [facility] Last Admin: 06/23/18 18:02 Dose: Not Given Guaifenesin (Mucinex La) 600 mg PO Q12H [facility] Last Admin: 06/23/18 18:07 Dose: Not Given Heparin Sodium (Porcine) (Heparin) 5,000 units SC Q8H [facility] Last Admin: 06/24/18 13:57 Dose: 5,000 units Hydrocortisone Sodium Succinate (Solu-Cortef) 100 mg IV DAILY [facility] Last Admin: 06/24/18 09:12 Dose: 100 mg Linezolid (Zyvox 600mg/300ml D5w) 600 mg in 300 mls @ 200 mls/hr IVPB Q12H [facility]; Protocol Last Admin: 06/24/18 13:57 Dose: 200 mls/hr Meropenem 500 mg/ Sodium (Chloride) 100 mls @ 100 mls/hr IVPB Q12H [facility]; Protocol Last Admin: 06/24/18 04:30 Dose: 100 mls/hr Folic Acid 1 mg/ Thiamine HCl 100 mg/ Multivitamins/Vitamin C 10 ml/ Dextrose 1,011.2 mls @ 42 mls/hr IV .Q24H [facility] Last Admin: 06/24/18 13:53 Dose: 42 mls/hr Multivitamins/Vitamin C 10 ml/Chromium/Copper/Manganese/Zinc 1 ml/ Amino Acids 1,011 mls @ 42 mls/hr IV .Q24H [facility] Stop: 06/24/18 17:59 Last Admin: 06/23/18 18:11 Dose: 42 mls/hr Metronidazole (Flagyl) 500 mg in 100 mls @ 100 mls/hr IVPB Q8H [facility]; Protocol Last Admin: 06/24/18 12:12 Dose: 100 mls/hr Multivitamins/Vitamin C 10 ml/Chromium/Copper/Manganese/Zinc 1 ml/ Amino Acids 1,011 mls @ 42 mls/hr IV .Q24H [facility] Stop: 06/25/18 17:59 Ondansetron HCl (Zofran Inj) 4 mg IVP Q6 PRN PRN Reason: Nausea/Vomiting Last Admin: 06/22/18 23:01 Dose: 4 mg Pantoprazole Sodium (Protonix Inj) 40 mg IVP DAILY [facility] Last Admin: 06/24/18 09:13 Dose: 40 mg Tamsulosin HCl (Flomax) 0.4 mg PO DAILY [facility] Last Admin: 06/24/18 12:13 Dose: 0.4 mg Thiamine HCl (Vitamin B1 Inj) 200 mg IV Q8H [facility] Stop: 06/24/18 17:46 Last Admin: 06/24/18 09:12 Dose: 200 mg - Labs Labs: 06/24/18 05:38 06/24/18 05:38 PT 13.5 SECONDS (9.7-12.2) H 06/21/18 10:43 INR 1.2 06/21/18 10:43 APTT 29 SECONDS (21-34) 06/21/18 10:43
[2018-06-24] MEDS ORDERED: PPN #2 IV ONE (18:00)
--- NOTE | 2018-06-24 20:08 | CP.PCM.PN ---
Subjective - Date & Time of Evaluation Date of Evaluation: 06/24/18 Time of Evaluation: 20:08 - Subjective Subjective: CHIEF COMPLAINTS TODAY : afebrile, MUCH IMPROVED. SEEN BY SURGERY /INGUINAL HERNIA REDUCED. NO FURTHER VOMITING. NAEO ROS. HEENT : N. Resp : No cough, wheezing ,pleuritic CP ,or hemoptysis Cardio : No anginal CP, PND, orthopnea, palpitation GI : No abd.pain, n/v ,diarrhea or GI bleeding . 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 Musculoskel : No joint swelling , Derm rash all over the body Psych : Normal affect. Ext : No swelling ,calf pain PE. Pt. is in no distress. V.S As noted in the chart Head ,ear nose,throat and eyes : Normal.+VE NGT Neck : Supple with normal carotids. Lungs: DECREASED BREATH SOUNDS AT THE BASES, FEW RHONCHI RIGHT-SIDED. Heart : S1 & S2 normal with S4. No murmur. Abd : Soft non tender with normal bowel sounds. Neuro : Moves all ext. with no localized deficit. Ext : No edema with intact pulses.Non tender calves Derm : Generalized erythema with exfoliation improving LABS/RADIOLOGY: CT ABDOMEN/PELVIS WITH ORAL CONTRAST 06/23/19 -HIGH GRADE SBO/ WITH INCARCERATED LEFT INGUINAL HERNIA . wbc 14.2 CREAT 1.2/bun 47 improving. sputum culture +ve E. COLI -PANSENSITIVE Objective - Vital Signs/Intake and Output Vital Signs (last 24 hours): Temp Pulse Resp BP Pulse Ox 98.5 F 88 13 121/63 99 06/24/18 16:00 06/24/18 19:16 06/24/18 19:16 06/24/18 19:16 06/24/18 19:16 Intake and Output: 06/24/18 06/25/18 18:59 06:59 Intake Total 1508 Output Total 1035 Balance 473 - Medications Medications: Current Medications Albuterol/Ipratropium (Duoneb 3 Mg/0.5 Mg (3 Ml) Ud) 3 ml INH RQ6 [facility] Last Admin: 06/24/18 12:50 Dose: 3 ml Allopurinol (Zyloprim) 100 mg PO DAILY [facility] Last Admin: 06/24/18 09:09 Dose: 100 mg Calcium Acetate (Phoslo) 667 mg GT TIDCC [facility] Last Admin: 06/23/18 18:03 Dose: Not Given Clotrimazole (Lotrimin 1%) 0 gm TOP BID [facility] Last Admin: 06/24/18 16:59 Dose: 1 appl Emollient Ointment (Vaseline Oint) 5 gm TOP Q6H PRN PRN Reason: Dry skin Last Admin: 06/23/18 18:49 Dose: 5 gm Gabapentin (Neurontin) 300 mg PO BID [facility] Last Admin: 06/23/18 18:02 Dose: Not Given Guaifenesin (Mucinex La) 600 mg PO Q12H [facility] Last Admin: 06/23/18 18:07 Dose: Not Given Heparin Sodium (Porcine) (Heparin) 5,000 units SC Q8H [facility] Last Admin: 06/24/18 13:57 Dose: 5,000 units Hydrocortisone Sodium Succinate (Solu-Cortef) 100 mg IV DAILY [facility] Last Admin: 06/24/18 09:12 Dose: 100 mg Linezolid (Zyvox 600mg/300ml D5w) 600 mg in 300 mls @ 200 mls/hr IVPB Q12H [facility]; Protocol Last Admin: 06/24/18 13:57 Dose: 200 mls/hr Meropenem 500 mg/ Sodium (Chloride) 100 mls @ 100 mls/hr IVPB Q12H [facility]; Protocol Last Admin: 06/24/18 15:29 Dose: 100 mls/hr Folic Acid 1 mg/ Thiamine HCl 100 mg/ Multivitamins/Vitamin C 10 ml/ Dextrose 1,011.2 mls @ 42 mls/hr IV .Q24H [facility] Last Admin: 06/24/18 13:53 Dose: 42 mls/hr Metronidazole (Flagyl) 500 mg in 100 mls @ 100 mls/hr IVPB Q8H [facility]; Protocol Last Admin: 06/24/18 19:00 Dose: 100 mls/hr Multivitamins/Vitamin C 10 ml/Chromium/Copper/Manganese/Zinc 1 ml/ Amino Acids 1,011 mls @ 42 mls/hr IV .Q24H [facility] Stop: 06/25/18 17:59 Last Admin: 06/24/18 17:51 Dose: 42 mls/hr Ondansetron HCl (Zofran Inj) 4 mg IVP Q6 PRN PRN Reason: Nausea/Vomiting Last Admin: 06/22/18 23:01 Dose: 4 mg Pantoprazole Sodium (Protonix Inj) 40 mg IVP DAILY [facility] Last Admin: 06/24/18 09:13 Dose: 40 mg Tamsulosin HCl (Flomax) 0.4 mg PO DAILY [facility] Last Admin: 06/24/18 12:13 Dose: 0.4 mg - Labs Labs: 06/24/18 05:38 06/24/18 05:38 PT 13.5 SECONDS (9.7-12.2) H 06/21/18 10:43 INR 1.2 06/21/18 10:43 APTT 29 SECONDS (21-34) 06/21/18 10:43 Assessment and Plan (1) SBO (small bowel obstruction) Status: Acute (2) Incarcerated left inguinal hernia Status: Acute (3) Pneumonia Status: Acute (4) Leukocytosis Status: Acute (5) Generalized rash Status: Acute (6) APL (acute promyelocytic leukemia) Status: Acute (7) Azotemia Status: Acute - Assessment and Plan (Free Text) Plan: DC IV mERREM 500 MG EVERY 12 HOURLY 06/22/18. DC IV ZYVOX 600 MG EVERY 12 HOURLY 06/22/18 START IV CIPRO 400MG IVPB Q12 [facility] 06/25/18 CONTINUE IV FLAGYL 500MG IV Q 8[facility] 06/23/18 CASE DISCUSSED WITH staff.
[2018-06-25] MEDS: Albuterol-Ipratrop 3 mg / 0.5 (3 ml) UD INH SCH ×4 (01:21→20:02)
[2018-06-25] MEDS: Linezolid 600 mg in D5W 300 ml 600 MG/300 ML BAG IVPB SCH (01:50)
[2018-06-25] MEDS: metroNIDAZOLE IV 500 mg/100 ml 500 MG/100 ML BAG IVPB SCH ×3 (02:49→18:51)
[2018-06-25] MEDS: Petrolatum Oint Foilpak (5 gm) TOP PRN (05:00)
[2018-06-25] MEDS: Ciprofloxacin 400mg/200ml D5W 400 MG/200 ML BAG IVPB SCH ×2 (06:02→17:34)
[2018-06-25 06:10] LABS: BASO # 0.1 K/uL (0.0-0.2); BASO % 0.5 % (0.0-2.0); EOS # 0.1 K/uL (0.0-0.7); EOS % 0.3 % (0.0-4.0); HEMOGLOBIN 7.9 g/dL (12.0-18.0); LYMPH # 5.6 K/uL (1.0-4.3); LYMPH % 30.5 % (20.0-40.0); MEAN CELL VOLUME 84.2 fL (80.0-94.0); MEAN CORPUSCULAR HEMOGLOBIN 26.6 pg (27.0-31.0); MEAN CORPUSCULAR HGB CONC 31.6 g/dL (33.0-37.0); MEAN PLATELET VOLUME 9.3 fL (7.2-11.7); MONO # 1.2 K/uL (0.0-0.8); MONO % 6.7 % (0.0-10.0); NEUT # 11.4 K/uL (1.8-7.0); NRBC % 0.9 % (0.0-2.0); RBC 2.98 Mil/uL (4.40-5.90); RED CELL DISTRIBUTION WIDTH 14.7 % (11.5-14.5); WHITE BLOOD COUNT 18.3 K/uL (4.8-10.8)
[2018-06-25 06:38] LABS: ALB/GLOB RATIO 0.9 (1.0-2.1); ALBUMIN 2.7 g/dL (3.5-5.0); ALT/SGPT 24 U/L (21-72); AST/SGOT 16 U/L (17-59); BLOOD UREA NITROGEN 29 mg/dL (9-20); CALCIUM 9.6 mg/dl (8.6-10.4); GFR NON-AFRICAN AMERICAN > 60
[2018-06-25] MEDS ORDERED: Iohexol 240 (50 ml) PO ONE (09:00)
[2018-06-25] MEDS: Folic Acid 1 MG, Thiamine 100 MG, Multivitamin (MVI) 10 ML in Dextrose 5% In Water 1,00... IV SCH (09:57)
[2018-06-25] MEDS: Clotrimazole 1% Cream(30 gm) TOP SCH ×2 (10:16→18:53)
--- NOTE | 2018-06-25 10:28 | CP.PCM.PN ---
Subjective - Date & Time of Evaluation Date of Evaluation: 06/25/18 Time of Evaluation: 10:27 - Subjective Subjective: Patient feeling better, no BMs, no flatus, one episode of N/V yesterday Objective - Vital Signs/Intake and Output Vital Signs (last 24 hours): Temp Pulse Resp BP Pulse Ox 98.7 F 76 18 97/55 L 100 06/25/18 04:00 06/25/18 06:16 06/25/18 06:16 06/25/18 06:16 06/25/18 06:16 Intake and Output: 06/25/18 06/25/18 06:59 18:59 Intake Total 1324 352 Output Total 660 80 Balance 664 272 - Medications Medications: Current Medications Albuterol/Ipratropium (Duoneb 3 Mg/0.5 Mg (3 Ml) Ud) 3 ml INH RQ6 [facility] Last Admin: 06/25/18 07:45 Dose: 3 ml Allopurinol (Zyloprim) 100 mg PO DAILY [facility] Last Admin: 06/25/18 09:58 Dose: 100 mg Calcium Acetate (Phoslo) 667 mg GT TIDCC [facility] Last Admin: 06/23/18 18:03 Dose: Not Given Clotrimazole (Lotrimin 1%) 0 gm TOP BID [facility] Last Admin: 06/25/18 10:16 Dose: 1 appl Emollient Ointment (Vaseline Oint) 5 gm TOP Q6H PRN PRN Reason: Dry skin Last Admin: 06/25/18 05:00 Dose: 5 gm Gabapentin (Neurontin) 300 mg PO BID [facility] Last Admin: 06/23/18 18:02 Dose: Not Given Guaifenesin (Mucinex La) 600 mg PO Q12H [facility] Last Admin: 06/23/18 18:07 Dose: Not Given Heparin Sodium (Porcine) (Heparin) 5,000 units SC Q8H [facility] Last Admin: 06/25/18 06:08 Dose: 5,000 units Hydrocortisone Sodium Succinate (Solu-Cortef) 100 mg IV DAILY [facility] Last Admin: 06/25/18 09:38 Dose: 100 mg Folic Acid 1 mg/ Thiamine HCl 100 mg/ Multivitamins/Vitamin C 10 ml/ Dextrose 1,011.2 mls @ 42 mls/hr IV .Q24H [facility] Last Admin: 06/25/18 09:57 Dose: 42 mls/hr Metronidazole (Flagyl) 500 mg in 100 mls @ 100 mls/hr IVPB Q8H [facility]; Protocol Last Admin: 06/25/18 10:17 Dose: 100 mls/hr Multivitamins/Vitamin C 10 ml/Chromium/Copper/Manganese/Zinc 1 ml/ Amino Acids 1,011 mls @ 42 mls/hr IV .Q24H [facility] Stop: 06/25/18 17:59 Last Admin: 06/24/18 17:51 Dose: 42 mls/hr Ciprofloxacin (Cipro 400mg/200ml Dsw) 400 mg in 200 mls @ 133 mls/hr IVPB Q12H [facility]; Protocol Last Admin: 06/25/18 06:02 Dose: 133 mls/hr Potassium Chloride (Potassium Chloride 20 Meq/100 Ml) 20 meq in 100 mls @ 50 mls/hr IVPB Q1H [facility] Stop: 06/25/18 10:29 Last Admin: 06/25/18 09:37 Dose: 50 mls/hr Ondansetron HCl (Zofran Inj) 4 mg IVP Q6 PRN PRN Reason: Nausea/Vomiting Last Admin: 06/22/18 23:01 Dose: 4 mg Pantoprazole Sodium (Protonix Inj) 40 mg IVP DAILY [facility] Last Admin: 06/25/18 09:37 Dose: 40 mg Tamsulosin HCl (Flomax) 0.4 mg PO DAILY [facility] Last Admin: 06/25/18 09:37 Dose: 0.4 mg - Labs Labs: 06/25/18 06:05 06/25/18 06:05 PT 13.5 SECONDS (9.7-12.2) H 06/21/18 10:43 INR 1.2 06/21/18 10:43 APTT 29 SECONDS (21-34) 06/21/18 10:43 Assessment and Plan - Assessment and Plan (Free Text) Assessment: -VIOLETTE: resolved, decreased IVF -high grade ileuis: continue as per surgery, no BM/no flatus -lobar PNA: GNR in sputum is berg sensitive E. coli -continue IVF -PT/OT -heme/onc input -vigorous pulmonary toilet -no nasal canula -OOOB to chair -Patient remains hemodynamically stable
--- NOTE | 2018-06-25 15:25 | CT ---
Date of service: 06/25/2018 PROCEDURE: CT Abdomen and Pelvis without intravenous contrast HISTORY: repeat nausea/vomiting COMPARISON: CT scan of the abdomen pelvis dated 06/23/2018. TECHNIQUE: Contiguous images were obtained from the domes of the diaphragms to the upper thighs without the administration of intravenous contrast. Oral contrast was not administered. Radiation dose: Total exam DLP = 1004.25 mGy-cm. This CT exam was performed using one or more of the following dose reduction techniques: Automated exposure control, adjustment of the mA and/or kV according to patient size, and/or use of iterative reconstruction technique. FINDINGS: LOWER THORAX: Worsening bilateral lower lobe consolidations. Additional foci of patchy right lower lobe and right middle lobe airspace disease. Trace bilateral pleural effusions. Partially imaged right axillary lymph nodes. LIVER: Unremarkable. No gross lesion or ductal dilatation. GALLBLADDER AND BILE DUCTS: Unremarkable. PANCREAS: Uncinate process 1.4 x 1.6 cm cystic structure. No ductal dilatation. SPLEEN: Atrophic. ADRENALS: Unremarkable. No mass. KIDNEYS AND URETERS: Large left upper pole 6.5 cm cyst. Right upper pole 3.8 cm cyst. No hydronephrosis. No solid mass. VASCULATURE: Unremarkable. No aortic aneurysm. No aortic atherosclerotic calcification or mural plaque present. BOWEL: Enteric tube with tip in the stomach. Similar appearance of small bowel obstruction secondary to bowel protruding into the left inguinal hernia. Amount of bowel in the hernia sac is less compared to the prior study. Short segment loop of small bowel just proximal to the herniated portion demonstrates some nonspecific wall thickening edema. Colonic diverticulosis. APPENDIX: No findings to suggest acute appendicitis. PERITONEUM: Small left fat containing inguinal hernia. No free fluid. No free air. LYMPH NODES: Prominent bilateral iliac chain lymph nodes. Enlarged bilateral groin lymph nodes, the largest is on the left and measures 3.0 by 2.0 cm. BLADDER: Decompressed around a Tinajero catheter. REPRODUCTIVE: Unremarkable. BONES: No acute fracture. OTHER FINDINGS: None. IMPRESSION: Persistent small bowel obstruction with decreased amount of small bowel protruding into left inguinal hernia. New short-segment thickening/edema of the small just proximal to the herniated portion. This is nonspecific. Enteric contrast reaches the sigmoid. Stable nonspecific bilateral inguinal adenopathy with prominent bilateral iliac chain lymph nodes. Additional stable findings as above.
--- NOTE | 2018-06-25 16:41 | CP.PCM.PN ---
Subjective - Date & Time of Evaluation Date of Evaluation: 06/25/18 Time of Evaluation: 16:41 - Subjective Subjective: CHIEF COMPLAINTS TODAY : patient clinically is improving after reducing the left inguinal hernia still has mild distentn and not passing gas Renal function has improved and white count is dowrending ROS. HEENT : N. Resp : No cough, wheezing ,pleuritic CP ,or hemoptysis Cardio : No anginal CP, PND, orthopnea, palpitation GI : No abd.pain, n/v ,diarrhea or GI bleeding . 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 Musculoskel : No joint swelling , Derm rash all over the body Psych : Normal affect. Ext : No swelling ,calf pain PE. Pt. is alert awake in no distress. V.S As noted in the chart Head ,ear nose,throat and eyes : Normal. Neck : Supple with normal carotids. Lungs: Clear air entry. Heart : S1 & S2 normal with S4. No murmur. Abd : Soft non tender mild distention Neuro : Moves all ext. with no localized deficit. Ext : No edema with intact pulses.Non tender calves Derm : Generalized erythema with exfoliation LABS/RADIOLOGY ASSESSMENT/PLAN : continue IV fluids and antibiotics Monitor small bowel obstruction Objective - Vital Signs/Intake and Output Vital Signs (last 24 hours): Temp Pulse Resp BP Pulse Ox 97.8 F 83 14 115/56 L 100 06/25/18 12:00 06/25/18 15:01 06/25/18 15:01 06/25/18 15:01 06/25/18 15:01 Intake and Output: 06/25/18 06/25/18 11:59 23:59 Intake Total 1608 1136 Output Total 680 320 Balance 928 816 - Medications Medications: Current Medications Albuterol/Ipratropium (Duoneb 3 Mg/0.5 Mg (3 Ml) Ud) 3 ml INH RQ6 [facility] Last Admin: 06/25/18 13:02 Dose: 3 ml Allopurinol (Zyloprim) 100 mg PO DAILY [facility] Last Admin: 06/25/18 09:58 Dose: 100 mg Calcium Acetate (Phoslo) 667 mg GT TIDCC [facility] Last Admin: 06/23/18 18:03 Dose: Not Given Clotrimazole (Lotrimin 1%) 0 gm TOP BID [facility] Last Admin: 06/25/18 10:16 Dose: 1 appl Emollient Ointment (Vaseline Oint) 5 gm TOP Q6H PRN PRN Reason: Dry skin Last Admin: 06/25/18 05:00 Dose: 5 gm Gabapentin (Neurontin) 300 mg PO BID [facility] Last Admin: 06/23/18 18:02 Dose: Not Given Guaifenesin (Mucinex La) 600 mg PO Q12H [facility] Last Admin: 06/23/18 18:07 Dose: Not Given Heparin Sodium (Porcine) (Heparin) 5,000 units SC Q8H [facility] Last Admin: 06/25/18 13:24 Dose: 5,000 units Hydrocortisone Sodium Succinate (Solu-Cortef) 100 mg IV DAILY [facility] Last Admin: 06/25/18 09:38 Dose: 100 mg Folic Acid 1 mg/ Thiamine HCl 100 mg/ Multivitamins/Vitamin C 10 ml/ Dextrose 1,011.2 mls @ 42 mls/hr IV .Q24H [facility] Last Admin: 06/25/18 09:57 Dose: 42 mls/hr Metronidazole (Flagyl) 500 mg in 100 mls @ 100 mls/hr IVPB Q8H [facility]; Protocol Last Admin: 06/25/18 10:17 Dose: 100 mls/hr Multivitamins/Vitamin C 10 ml/Chromium/Copper/Manganese/Zinc 1 ml/ Amino Acids 1,011 mls @ 42 mls/hr IV .Q24H [facility] Stop: 06/25/18 17:59 Last Admin: 06/24/18 17:51 Dose: 42 mls/hr Ciprofloxacin (Cipro 400mg/200ml Dsw) 400 mg in 200 mls @ 133 mls/hr IVPB Q12H [facility]; Protocol Last Admin: 06/25/18 06:02 Dose: 133 mls/hr Multivitamins/Vitamin C 10 ml/Chromium/Copper/Manganese/Zinc 1 ml/ Amino Acids 1,011 mls @ 42 mls/hr IV .Q24H [facility] Stop: 06/26/18 17:59 Ondansetron HCl (Zofran Inj) 4 mg IVP Q6 PRN PRN Reason: Nausea/Vomiting Last Admin: 06/22/18 23:01 Dose: 4 mg Pantoprazole Sodium (Protonix Inj) 40 mg IVP DAILY [facility] Last Admin: 06/25/18 09:37 Dose: 40 mg Tamsulosin HCl (Flomax) 0.4 mg PO DAILY [facility] Last Admin: 06/25/18 09:37 Dose: 0.4 mg - Labs Labs: 06/25/18 06:05 06/25/18 06:05 PT 13.5 SECONDS (9.7-12.2) H 06/21/18 10:43 INR 1.2 06/21/18 10:43 APTT 29 SECONDS (21-34) 06/21/18 10:43
[2018-06-25] MEDS ORDERED: *** PPN # 3 IV ONE (18:00)
--- NOTE | 2018-06-25 23:55 | CP.PCM.PN ---
Subjective - Date & Time of Evaluation Date of Evaluation: 06/25/18 Time of Evaluation: 23:55 - Subjective Subjective: CHIEF COMPLAINTS TODAY : afebrile, FEELING BETTER. NO BM YET ! ROS. HEENT : N. Resp : No cough, wheezing ,pleuritic CP ,or hemoptysis Cardio : No anginal CP, PND, orthopnea, palpitation GI : No abd.pain, n/v ,diarrhea or GI bleeding . 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 Musculoskel : No joint swelling , Derm rash all over the body Psych : Normal affect. Ext : No swelling ,calf pain PE. Pt. is in no distress. V.S As noted in the chart Head ,ear nose,throat and eyes : Normal.+VE NGT Neck : Supple with normal carotids. Lungs: DECREASED BREATH SOUNDS AT THE BASES, FEW RHONCHI RIGHT-SIDED. Heart : S1 & S2 normal with S4. No murmur. Abd : Soft non tender with normal bowel sounds. Neuro : Moves all ext. with no localized deficit. Ext : No edema with intact pulses.Non tender calves Derm : Generalized erythema with exfoliation improving LABS/RADIOLOGY: RENAL FUNCTION IMPROVED CT ABDOMEN/PELVIS WITH ORAL CONTRAST 06/23/19 -HIGH GRADE SBO/ WITH INCARCERATED LEFT INGUINAL HERNIA . sputum culture +ve E. COLI -PANSENSITIVE Objective - Vital Signs/Intake and Output Vital Signs (last 24 hours): Temp Pulse Resp BP Pulse Ox 97.4 F L 85 14 118/57 L 98 06/25/18 20:00 06/25/18 21:01 06/25/18 21:01 06/25/18 21:01 06/25/18 21:00 Intake and Output: 06/25/18 06/26/18 18:59 06:59 Intake Total 2208 268 Output Total 760 Balance 1448 268 - Medications Medications: Current Medications Albuterol/Ipratropium (Duoneb 3 Mg/0.5 Mg (3 Ml) Ud) 3 ml INH RQ6 [facility] Last Admin: 06/25/18 20:02 Dose: 3 ml Allopurinol (Zyloprim) 100 mg PO DAILY [facility] Last Admin: 06/25/18 09:58 Dose: 100 mg Calcium Acetate (Phoslo) 667 mg GT TIDCC [facility] Last Admin: 06/23/18 18:03 Dose: Not Given Clotrimazole (Lotrimin 1%) 0 gm TOP BID [facility] Last Admin: 06/25/18 18:53 Dose: 1 appl Emollient Ointment (Vaseline Oint) 5 gm TOP Q6H PRN PRN Reason: Dry skin Last Admin: 06/25/18 05:00 Dose: 5 gm Gabapentin (Neurontin) 300 mg PO BID [facility] Last Admin: 06/23/18 18:02 Dose: Not Given Guaifenesin (Mucinex La) 600 mg PO Q12H [facility] Last Admin: 06/23/18 18:07 Dose: Not Given Heparin Sodium (Porcine) (Heparin) 5,000 units SC Q8H [facility] Last Admin: 06/25/18 22:08 Dose: 5,000 units Hydrocortisone Sodium Succinate (Solu-Cortef) 100 mg IV DAILY [facility] Last Admin: 06/25/18 09:38 Dose: 100 mg Folic Acid 1 mg/ Thiamine HCl 100 mg/ Multivitamins/Vitamin C 10 ml/ Dextrose 1 ,011.2 mls @ 42 mls/hr IV .Q24H [facility] Last Admin: 06/25/18 09:57 Dose: 42 mls/hr Metronidazole (Flagyl) 500 mg in 100 mls @ 100 mls/hr IVPB Q8H [facility]; Protocol Last Admin: 06/25/18 18:51 Dose: 100 mls/hr Ciprofloxacin (Cipro 400mg/200ml Dsw) 400 mg in 200 mls @ 133 mls/hr IVPB Q12H [facility]; Protocol Last Admin: 06/25/18 17:34 Dose: 133 mls/hr Multivitamins/Vitamin C 10 ml/Chromium/Copper/Manganese/Zinc 1 ml/ Amino Acids 1,011 mls @ 42 mls/hr IV .Q24H ONE Stop: 06/26/18 17:59 Last Admin: 06/25/18 17:40 Dose: 42 mls/hr Ondansetron HCl (Zofran Inj) 4 mg IVP Q6 PRN PRN Reason: Nausea/Vomiting Last Admin: 06/22/18 23:01 Dose: 4 mg Pantoprazole Sodium (Protonix Inj) 40 mg IVP DAILY [facility] Last Admin: 06/25/18 09:37 Dose: 40 mg Tamsulosin HCl (Flomax) 0.4 mg PO DAILY [facility] Last Admin: 06/25/18 09:37 Dose: 0.4 mg - Labs Labs: 06/25/18 06:05 06/25/18 06:05 PT 13.5 SECONDS (9.7-12.2) H 06/21/18 10:43 INR 1.2 06/21/18 10:43 APTT 29 SECONDS (21-34) 06/21/18 10:43 Assessment and Plan (1) SBO (small bowel obstruction) Status: Acute (2) Incarcerated left inguinal hernia Status: Acute (3) Pneumonia Status: Acute (4) Leukocytosis Status: Acute (5) Generalized rash Status: Acute (6) APL (acute promyelocytic leukemia) Status: Acute (7) Azotemia Status: Acute - Assessment and Plan (Free Text) Plan: ON IV CIPRO 400MG IVPB Q12 HRLY 06/25/18 CONTINUE IV FLAGYL 500MG IV Q 8HRLY 06/23/18 F/U PER SURGERY CASE DISCUSSED WITH staff.
[2018-06-26] MEDS: Albuterol-Ipratrop 3 mg / 0.5 (3 ml) UD INH SCH ×4 (01:13→19:17)
[2018-06-26] MEDS: metroNIDAZOLE IV 500 mg/100 ml 500 MG/100 ML BAG IVPB SCH ×3 (03:25→18:15)
[2018-06-26] MEDS: Ciprofloxacin 400mg/200ml D5W 400 MG/200 ML BAG IVPB SCH ×2 (06:25→17:30)
[2018-06-26 06:26] LABS: BASO # 0.1 K/uL (0.0-0.2); BASO % 0.6 % (0.0-2.0); EOS # 0.2 K/uL (0.0-0.7); EOS % 0.9 % (0.0-4.0); HEMOGLOBIN 7.9 g/dL (12.0-18.0); LYMPH # 7.5 K/uL (1.0-4.3); LYMPH % 35.5 % (20.0-40.0); MEAN CELL VOLUME 83.7 fL (80.0-94.0); MEAN CORPUSCULAR HEMOGLOBIN 25.9 pg (27.0-31.0); MEAN PLATELET VOLUME 9.1 fL (7.2-11.7); MONO # 0.8 K/uL (0.0-0.8); NEUT # 12.4 K/uL (1.8-7.0); NRBC % 1.5 % (0.0-2.0); RBC 3.06 Mil/uL (4.40-5.90); RED CELL DISTRIBUTION WIDTH 14.6 % (11.5-14.5)
[2018-06-26 06:27] LABS: ALB/GLOB RATIO 0.9 (1.0-2.1); ALBUMIN 2.6 g/dL (3.5-5.0); ALT/SGPT 28 U/L (21-72); AST/SGOT 21 U/L (17-59); BLOOD UREA NITROGEN 18 mg/dL (9-20); CALCIUM 9.5 mg/dl (8.6-10.4); GFR NON-AFRICAN AMERICAN > 60
[2018-06-26] MEDS: Clotrimazole 1% Cream(30 gm) TOP SCH ×2 (10:26→18:16)
[2018-06-26] MEDS: Petrolatum Oint Foilpak (5 gm) TOP PRN (10:26)
[2018-06-26] MEDS: Folic Acid 1 MG, Thiamine 100 MG, Multivitamin (MVI) 10 ML in Dextrose 5% In Water 1,00... IV SCH (10:28)
--- NOTE | 2018-06-26 11:32 | CP.CCUPN ---
CCU Subjective - Physician Review Subjective (Free Text): PGY-1 Critical Care Progress Note for Dr. Mac's service Patient seen and examined at bedside. Patient offers no acute complaints. Patient admits to passing gas and having soft bowel movement yesterday s/p duloclax. Patient denies fevers, chills, chest pain, sob, n/v, constipation or diarrhea, and dysuria. CCU Objective - Vital Signs / Intake & Output Vital Signs (Last 4 hours): Vital Signs Pulse Resp BP Pulse Ox 06/26/18 10:00 79 10 L 129/62 100 06/26/18 09:01 81 10 L 127/57 L 100 06/26/18 09:00 77 12 100 06/26/18 08:01 80 15 119/60 100 06/26/18 08:00 101 H 15 100 Intake and Output (Last 8hrs): Intake & Output 06/25/18 06/26/18 06/26/18 22:59 06:59 14:59 Intake Total 888 972 252 Output Total 410 400 Balance 478 572 252 Weight 154 lb 3.2 oz Intake: Intake, IV Amount 888 972 252 Right Distal Port 294 336 126 Internal Jugular Right Medial Port 294 336 126 Internal Jugular Right Proximal Port 300 300 Internal Jugular Output: Urine 410 400 Urethral (T[place]ajero) 410 400 Urine/Stool Mix 0 Other: # Bowel Movements 0 0 0 - Physical Exam Head: Positive for: Atraumatic, Normocephalic Pupils: Positive for: PERRL Mouth: Positive for: Dry Nose (Internal): Positive for: Other (NG tube in place) Neck: Positive for: Other (TLC in left IJ) Respiratory/Chest: Positive for: Clear to Auscultation, Good Air Exchange. Negative for: Respiratory Distress, Accessory Muscle Use Cardiovascular: Positive for: Regular Rate and Rhythm, Normal S1, S2. Negative for: Murmurs Abdomen: Positive for: Normal Bowel Sounds. Negative for: Tenderness, Distention, Peritoneal Signs Upper Extremity: Positive for: Normal Inspection, NORMAL PULSES. Negative for: Cyanosis, Edema Lower Extremity: Positive for: Normal Inspection, NORMAL PULSES. Negative for: Edema, CALF TENDERNESS Neurological: Positive for: GCS=15 Skin: Positive for: Warm, Dry, Other (chronic skin peeling and blistering). Negative for: Rashes, Normal Color Psychiatric: Positive for: Alert, Oriented x 3 - Medications Active Medications: Active Medications Generic Name Dose Route Start Last Admin Trade Name Freq PRN Reason Stop Dose Admin Albuterol/Ipratropium 3 ml 06/21/18 20:00 06/26/18 07:28 Duoneb 3 Mg/0.5 Mg (3 Ml) Ud INH 3 ml RQ6 [facility] Administration Allopurinol 100 mg 06/23/18 10:00 06/26/18 10:24 Zyloprim PO 100 mg DAILY [facility] Administration Calcium Acetate 667 mg 06/23/18 14:00 06/23/18 18:03 Phoslo GT Not Given TIDCC [facility] Clotrimazole 0 gm 06/21/18 18:00 06/26/18 10:26 Lotrimin 1% TOP 1 appl BID [facility] Administration Emollient Ointment 30 gm 06/26/18 09:26 06/26/18 10:26 Vaseline Oint TOP 30 gm Q6H PRN Administration Dry skin Gabapentin 300 mg 06/21/18 18:15 06/23/18 18:02 Neurontin PO Not Given BID [facility] Guaifenesin 600 mg 06/22/18 19:00 06/23/18 18:07 Mucinex La PO Not Given Q12H [facility] Heparin Sodium (Porcine) 5,000 units 06/21/18 22:00 06/26/18 06:26 Heparin SC 5,000 units Q8H [facility] Administration Hydrocortisone Sodium Succinate 100 mg 06/23/18 16:00 06/26/18 10:25 Solu-Cortef IV 100 mg DAILY [facility] Administration Metronidazole 500 mg in 100 mls @ 100 mls/hr 06/23/18 19:00 06/26/18 03:25 Flagyl IVPB 100 mls/hr Q8H [facility] Administration Protocol Ciprofloxacin 400 mg in 200 mls @ 133 mls/hr 06/25/18 06:00 06/26/18 06:25 Cipro 400mg/200ml Dsw IVPB 133 mls/hr Q12H [facility] Administration Protocol Multivitamins/Vitamin C 10 ml/ 1,011 mls @ 42 mls/hr 06/25/18 18:00 06/25/18 17:40 Chromium/Copper/Manganese/ IV 06/26/18 17:59 42 mls/hr Zinc 1 ml/ Amino Acids .Q24H [facility] Administration Ondansetron HCl 4 mg 06/22/18 22:10 06/22/18 23:01 Zofran Inj IVP 4 mg Q6 PRN Administration Nausea/Vomiting Pantoprazole Sodium 40 mg 06/24/18 10:00 06/26/18 10:25 Protonix Inj IVP 40 mg DAILY [facility] Administration Tamsulosin HCl 0.4 mg 06/24/18 10:00 06/26/18 10:25 Flomax PO 0.4 mg DAILY [facility] Administration - Patient Studies Lab Studies: Microbiology Studies 06/21/18 10:50 Blood Culture - Final Blood NO GROWTH AFTER 5 DAYS Gram Stain - Final TEST NOT PERFORMED 06/21/18 10:35 Blood Culture - Final Blood NO GROWTH AFTER 5 DAYS Gram Stain - Final TEST NOT PERFORMED Lab Studies 06/26/18 06/26/18 Range/Units 06:10 06:09 WBC 21.0 H (4.8-10.8) K/uL RBC 3.06 L (4.40-5.90) Mil/uL Hgb 7.9 L (12.0-18.0) g/dL Hct 25.6 L (35.0-51.0) % MCV 83.7 (80.0-94.0) fL MCH 25.9 L (27.0-31.0) pg MCHC 31.0 L (33.0-37.0) g/dL RDW 14.6 H (11.5-14.5) % Plt Count 324 (130-400) K/uL MPV 9.1 (7.2-11.7) fL Neut % (Auto) 59.0 (50.0-75.0) % Lymph % (Auto) 35.5 (20.0-40.0) % Hood % (Auto) 4.0 (0.0-10.0) % Eos % (Auto) 0.9 (0.0-4.0) % Baso % (Auto) 0.6 (0.0-2.0) % Neut # (Auto) 12.4 H (1.8-7.0) K/uL Lymph # (Auto) 7.5 H (1.0-4.3) K/uL Hood # (Auto) 0.8 (0.0-0.8) K/uL Eos # (Auto) 0.2 (0.0-0.7) K/uL Baso # (Auto) 0.1 (0.0-0.2) K/uL Sodium 141 (132-148) mmol/L Potassium 3.7 (3.6-5.2) mmol/L Chloride 106 (98-107) mmol/L Carbon Dioxide 32 H (22-30) mmol/L Anion Gap 7 L (10-20) BUN 18 (9-20) mg/dL Creatinine 0.6 L (0.8-1.5) mg/dL Est GFR ( Amer) > 60 Est GFR (Non-Af Amer) > 60 Random Glucose 91 D (75-110) mg/dL Calcium 9.5 (8.6-10.4) mg/dl Total Bilirubin 0.4 (0.2-1.3) mg/dL AST 21 (17-59) U/L ALT 28 (21-72) U/L Alkaline Phosphatase 97 (38-126) U/L Total Protein 5.5 L (6.3-8.3) g/dL Albumin 2.6 L (3.5-5.0) g/dL Globulin 2.9 (2.2-3.9) gm/dL Albumin/Globulin Ratio 0.9 L (1.0-2.1) Laboratory Results - last 24 hr 06/26/18 06/26/18 06:09 06:10 WBC 21.0 H RBC 3.06 L Hgb 7.9 L Hct 25.6 L MCV 83.7 MCH 25.9 L MCHC 31.0 L RDW 14.6 H Plt Count 324 MPV 9.1 Neut % (Auto) 59.0 Lymph % (Auto) 35.5 Hood % (Auto) 4.0 Eos % (Auto) 0.9 Baso % (Auto) 0.6 Neut # (Auto) 12.4 H Lymph # (Auto) 7.5 H Hood # (Auto) 0.8 Eos # (Auto) 0.2 Baso # (Auto) 0.1 Sodium 141 Potassium 3.7 Chloride 106 Carbon Dioxide 32 H Anion Gap 7 L BUN 18 Creatinine 0.6 L Est GFR ( Amer) > 60 Est GFR (Non-Af Amer) > 60 Random Glucose 91 D Calcium 9.5 Total Bilirubin 0.4 AST 21 ALT 28 Alkaline Phosphatase 97 Total Protein 5.5 L Albumin 2.6 L Globulin 2.9 Albumin/Globulin Ratio 0.9 L Radiology Impressions: Radiology Impressions Abdomen/Pelvis CT 06/25/18 08:32 IMPRESSION: Persistent small bowel obstruction with decreased amount of small bowel protruding into left inguinal hernia. New short-segment thickening/edema of the small just proximal to the herniated portion. This is nonspecific. Enteric contrast reaches the sigmoid. Stable nonspecific bilateral inguinal adenopathy with prominent bilateral iliac chain lymph nodes. Additional stable findings as above. Review of Systems - Review of Systems Review of Systems: 12 point ROS obtained and noted as in HPI Critical Care Progress Note - Prophylaxis GI Prophylaxis GI: PPI - Prophylaxis DVT Prophylaxis DVT: Heparin SQ - Nutrition Nutrition: Nutrition Category Date Time Status NPO Diet [DIET] Diets 06/23/18 Breakfast Active Assessment/Plan - Assessment and Plan (Free Text) Assessment: 73 yo male with PMH of HTN and APL admitted to ICU for sob 2/2 to PNA likely inciting factor aspiration pna 2/2 small bowel obstruction due to abdominal strangulated hernia Neuro AAOX3 Pulm Duoneb; On aerosol; maintain spo2>90% Cxray shows possible PNA- Ciprofloxacin CV Remains normotensive GI NG tube in place; NPO SBO with inguinal hernia- repeat CT abd- persistent sbo w/ decreased amount of small bowel protruding into left inguinal hernia Heme Hx of APL- pending flow cytometry VSS stable Derm Chronic whole body dry scaly skin- Vaseline ointment 5gm q6h; Clotrimazole; Etiology likely related to patient APL (has oncology appointment on July 11) Renal VIOLETTE resolved only Solucortef allopurinol Tamsulosin Banana bag Repeat CMP in AM ID Flagyl/Cipro for SBO; + E coli sens to cipro DVT ppx: Heparin Nasuea: Zofran GI ppx: Protonix PGY-1 [facility] d/w Dr. Mac
--- NOTE | 2018-06-26 11:43 | CP.PCM.PN ---
Subjective - Date & Time of Evaluation Date of Evaluation: 06/26/18 Time of Evaluation: 11:40 - Subjective Subjective: Patient denies abdominal pain. Had bowel movement yesterday after dulcolax suppository, may have passed more gas in addition. Repeat CT scan done yesterday indicates residual proximal small bowel distension, but contrast is seen in the colon. Possibly small amount of small bowel remains in L inguinal hernia without proximal dilatation; patient also has bilateral enlarged inguinal lymph nodes.. NGT output thick, green Objective - Vital Signs/Intake and Output Vital Signs (last 24 hours): Temp Pulse Resp BP Pulse Ox 98.2 F 79 10 L 129/62 100 06/26/18 04:00 06/26/18 10:00 06/26/18 10:00 06/26/18 10:00 06/26/18 10:00 Intake and Output: 06/26/18 06/26/18 06:59 18:59 Intake Total 1324 252 Output Total 600 Balance 724 252 - Medications Medications: Current Medications Albuterol/Ipratropium (Duoneb 3 Mg/0.5 Mg (3 Ml) Ud) 3 ml INH RQ6 [facility] Last Admin: 06/26/18 07:28 Dose: 3 ml Allopurinol (Zyloprim) 100 mg PO DAILY [facility] Last Admin: 06/26/18 10:24 Dose: 100 mg Calcium Acetate (Phoslo) 667 mg GT TIDCC [facility] Last Admin: 06/23/18 18:03 Dose: Not Given Clotrimazole (Lotrimin 1%) 0 gm TOP BID [facility] Last Admin: 06/26/18 10:26 Dose: 1 appl Emollient Ointment (Vaseline Oint) 30 gm TOP Q6H PRN PRN Reason: Dry skin Last Admin: 06/26/18 10:26 Dose: 30 gm Gabapentin (Neurontin) 300 mg PO BID [facility] Last Admin: 06/23/18 18:02 Dose: Not Given Guaifenesin (Mucinex La) 600 mg PO Q12H [facility] Last Admin: 06/23/18 18:07 Dose: Not Given Heparin Sodium (Porcine) (Heparin) 5,000 units SC Q8H [facility] Last Admin: 06/26/18 06:26 Dose: 5,000 units Hydrocortisone Sodium Succinate (Solu-Cortef) 100 mg IV DAILY [facility] Last Admin: 06/26/18 10:25 Dose: 100 mg Metronidazole (Flagyl) 500 mg in 100 mls @ 100 mls/hr IVPB Q8H [facility]; Protocol Last Admin: 06/26/18 03:25 Dose: 100 mls/hr Ciprofloxacin (Cipro 400mg/200ml Dsw) 400 mg in 200 mls @ 133 mls/hr IVPB Q12H [facility]; Protocol Last Admin: 06/26/18 06:25 Dose: 133 mls/hr Multivitamins/Vitamin C 10 ml/Chromium/Copper/Manganese/Zinc 1 ml/ Amino Acids 1,011 mls @ 42 mls/hr IV .Q24H ONE Stop: 06/26/18 17:59 Last Admin: 06/25/18 17:40 Dose: 42 mls/hr Multivitamins/Vitamin C 10 ml/Chromium/Copper/Manganese/Zinc 1 ml/ Amino Acids 1,011 mls @ 42 mls/hr IV .Q24H ONE Stop: 06/27/18 17:59 Ondansetron HCl (Zofran Inj) 4 mg IVP Q6 PRN PRN Reason: Nausea/Vomiting Last Admin: 06/22/18 23:01 Dose: 4 mg Pantoprazole Sodium (Protonix Inj) 40 mg IVP DAILY [facility] Last Admin: 06/26/18 10:25 Dose: 40 mg Tamsulosin HCl (Flomax) 0.4 mg PO DAILY [facility] Last Admin: 06/26/18 10:25 Dose: 0.4 mg - Labs Labs: 06/26/18 06:10 06/26/18 06:09 PT 13.5 SECONDS (9.7-12.2) H 06/21/18 10:43 INR 1.2 06/21/18 10:43 APTT 29 SECONDS (21-34) 06/21/18 10:43 - Constitutional Appears: No Acute Distress - Respiratory Exam Respiratory Exam: Rhonchi. absent: Accessory Muscle Use - Cardiovascular Exam Cardiovascular Exam: REGULAR RHYTHM - GI/Abdominal Exam GI & Abdominal Exam: Soft, Normal Bowel Sounds. absent: Distended, Tenderness Additional comments: No mass preent at L inguinal hernia; enlarged nodes palpable; nontender Assessment and Plan (1) Incarcerated left inguinal hernia Assessment & Plan: Seems to remain reduced. CT scan notes thcikened bowel wall in adjacent loop, consistent with previous incarceration. Obstruction is resolving. Status: Acute (2) SBO (small bowel obstruction) Assessment & Plan: Resolving. Can continue NGT suction with intermittent clamping as tolerated for residual proximal distension, monitor output Status: Acute
--- NOTE | 2018-06-26 12:45 | CP.PCM.PN ---
Subjective - Date & Time of Evaluation Date of Evaluation: 06/26/18 Time of Evaluation: 12:45 - Subjective Subjective: CHIEF COMPLAINTS TODAY : afebrile,AAO STATES " FEELING FINE." NPO +VE NGT ON PPN HAD A BM . ON FACE MASK ROS. HEENT : N. Resp : No cough, wheezing ,pleuritic CP ,or hemoptysis Cardio : No anginal CP, PND, orthopnea, palpitation GI : No abd.pain, n/v ,diarrhea or GI bleeding . 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 Musculoskel : No joint swelling , Derm rash all over the body Psych : Normal affect. Ext : No swelling ,calf pain PE. Pt. is in no distress. V.S As noted in the chart Head ,ear nose,throat and eyes : Normal.+VE NGT Neck : Supple with normal carotids. Lungs: DECREASED BREATH SOUNDS AT THE BASES, FEW RHONCHI RIGHT-SIDED. Heart : S1 & S2 normal with S4. No murmur. Abd : Soft non tender with normal bowel sounds. Neuro : Moves all ext. with no localized deficit. Ext : No edema with intact pulses.Non tender calves Derm : Generalized erythema with exfoliation improving LABS/RADIOLOGY: WBC 21.0 RENAL FUNCTION IMPROVED Repeat CAT scan of the abdomen shows still small bowel obstruction with some thickening of the small bowel indicating previous incarceration. CT ABDOMEN/PELVIS WITH ORAL CONTRAST 06/23/19 -HIGH GRADE SBO/ WITH INCARCERATED LEFT INGUINAL HERNIA . sputum culture +ve E. COLI -PANSENSITIVE Objective - Vital Signs/Intake and Output Vital Signs (last 24 hours): Temp Pulse Resp BP Pulse Ox 98.2 F 79 10 L 129/62 100 06/26/18 04:00 06/26/18 10:00 06/26/18 10:00 06/26/18 10:00 06/26/18 10:00 Intake and Output: 06/26/18 06/26/18 06:59 18:59 Intake Total 1324 252 Output Total 600 Balance 724 252 - Medications Medications: Current Medications Albuterol/Ipratropium (Duoneb 3 Mg/0.5 Mg (3 Ml) Ud) 3 ml INH RQ6 [facility] Last Admin: 06/26/18 07:28 Dose: 3 ml Allopurinol (Zyloprim) 100 mg PO DAILY [facility] Last Admin: 06/26/18 10:24 Dose: 100 mg Calcium Acetate (Phoslo) 667 mg GT TIDCC [facility] Last Admin: 06/23/18 18:03 Dose: Not Given Clotrimazole (Lotrimin 1%) 0 gm TOP BID [facility] Last Admin: 06/26/18 10:26 Dose: 1 appl Emollient Ointment (Vaseline Oint) 30 gm TOP Q6H PRN PRN Reason: Dry skin Last Admin: 06/26/18 10:26 Dose: 30 gm Gabapentin (Neurontin) 300 mg PO BID [facility] Last Admin: 06/23/18 18:02 Dose: Not Given Guaifenesin (Mucinex La) 600 mg PO Q12H [facility] Last Admin: 06/23/18 18:07 Dose: Not Given Heparin Sodium (Porcine) (Heparin) 5,000 units SC Q8H [facility] Last Admin: 06/26/18 06:26 Dose: 5,000 units Hydrocortisone Sodium Succinate (Solu-Cortef) 100 mg IV DAILY [facility] Last Admin: 06/26/18 10:25 Dose: 100 mg Metronidazole (Flagyl) 500 mg in 100 mls @ 100 mls/hr IVPB Q8H [facility]; Protocol Last Admin: 06/26/18 11:50 Dose: 100 mls/hr Ciprofloxacin (Cipro 400mg/200ml Dsw) 400 mg in 200 mls @ 133 mls/hr IVPB Q12H [facility]; Protocol Last Admin: 06/26/18 06:25 Dose: 133 mls/hr Multivitamins/Vitamin C 10 ml/Chromium/Copper/Manganese/Zinc 1 ml/ Amino Acids 1,011 mls @ 42 mls/hr IV .Q24H ONE Stop: 06/26/18 17:59 Last Admin: 06/25/18 17:40 Dose: 42 mls/hr Multivitamins/Vitamin C 10 ml/Chromium/Copper/Manganese/Zinc 1 ml/ Amino Acids 1,011 mls @ 42 mls/hr IV .Q24H ONE Stop: 06/27/18 17:59 Linezolid (Zyvox 600mg/300ml D5w) 600 mg in 300 mls @ 200 mls/hr IVPB Q12H [facility]; Protocol Ondansetron HCl (Zofran Inj) 4 mg IVP Q6 PRN PRN Reason: Nausea/Vomiting Last Admin: 06/22/18 23:01 Dose: 4 mg Pantoprazole Sodium (Protonix Inj) 40 mg IVP DAILY [facility] Last Admin: 06/26/18 10:25 Dose: 40 mg Tamsulosin HCl (Flomax) 0.4 mg PO DAILY [facility] Last Admin: 06/26/18 10:25 Dose: 0.4 mg - Labs Labs: 06/26/18 06:10 06/26/18 06:09 PT 13.5 SECONDS (9.7-12.2) H 06/21/18 10:43 INR 1.2 06/21/18 10:43 APTT 29 SECONDS (21-34) 06/21/18 10:43 Assessment and Plan (1) SBO (small bowel obstruction) Status: Acute (2) Incarcerated left inguinal hernia Status: Acute (3) Pneumonia Status: Acute (4) Leukocytosis Status: Acute (5) Generalized rash Status: Acute (6) APL (acute promyelocytic leukemia) Status: Acute (7) Azotemia Status: Acute - Assessment and Plan (Free Text) Plan: ON IV CIPRO 400MG IVPB Q12 HRLY 06/25/18 CONTINUE IV FLAGYL 500MG IV Q 8HRLY 06/23/18 ADD IV ZYVOX 600MG IVPB TO COVER FOR STREP/STAPH ( GI/SSTI JACKELYN )06/26/18. LEUKOCYTOSIS ALSO CAN BE FROM STEROIDS. REPEAT BLOOD CULTURES 2:2 SETS VIA CATHETHER TODAY BEFORE STARTING ZYVOX F/U PER SURGERY F/U CXR CASE DISCUSSED WITH staff.
[2018-06-26] MEDS: Linezolid 600 mg in D5W 300 ml 600 MG/300 ML BAG IVPB SCH (13:00)
--- NOTE | 2018-06-26 13:44 | CP.PCM.PN ---
Subjective - Date & Time of Evaluation Date of Evaluation: 06/23/18 Time of Evaluation: 12:00 - Subjective Subjective: No complaints repeat flow cytometery sent today Objective - Vital Signs/Intake and Output Vital Signs (last 24 hours): Temp Pulse Resp BP Pulse Ox 98.2 F 79 10 L 129/62 100 06/26/18 04:00 06/26/18 10:00 06/26/18 10:00 06/26/18 10:00 06/26/18 10:00 Intake and Output: 06/26/18 06/26/18 06:59 18:59 Intake Total 1324 252 Output Total 600 Balance 724 252 - Medications Medications: Current Medications Albuterol/Ipratropium (Duoneb 3 Mg/0.5 Mg (3 Ml) Ud) 3 ml INH RQ6 [facility] Last Admin: 06/26/18 13:22 Dose: 3 ml Allopurinol (Zyloprim) 100 mg PO DAILY [facility] Last Admin: 06/26/18 10:24 Dose: 100 mg Calcium Acetate (Phoslo) 667 mg GT TIDCC [facility] Last Admin: 06/23/18 18:03 Dose: Not Given Clotrimazole (Lotrimin 1%) 0 gm TOP BID [facility] Last Admin: 06/26/18 10:26 Dose: 1 appl Emollient Ointment (Vaseline Oint) 30 gm TOP Q6H PRN PRN Reason: Dry skin Last Admin: 06/26/18 10:26 Dose: 30 gm Gabapentin (Neurontin) 300 mg PO BID [facility] Last Admin: 06/23/18 18:02 Dose: Not Given Guaifenesin (Mucinex La) 600 mg PO Q12H [facility] Last Admin: 06/23/18 18:07 Dose: Not Given Heparin Sodium (Porcine) (Heparin) 5,000 units SC Q8H [facility] Last Admin: 06/26/18 06:26 Dose: 5,000 units Hydrocortisone Sodium Succinate (Solu-Cortef) 100 mg IV DAILY [facility] Last Admin: 06/26/18 10:25 Dose: 100 mg Metronidazole (Flagyl) 500 mg in 100 mls @ 100 mls/hr IVPB Q8H [facility]; Protocol Last Admin: 06/26/18 11:50 Dose: 100 mls/hr Ciprofloxacin (Cipro 400mg/200ml Dsw) 400 mg in 200 mls @ 133 mls/hr IVPB Q12H [facility]; Protocol Last Admin: 06/26/18 06:25 Dose: 133 mls/hr Multivitamins/Vitamin C 10 ml/Chromium/Copper/Manganese/Zinc 1 ml/ Amino Acids 1,011 mls @ 42 mls/hr IV .Q24H ONE Stop: 06/26/18 17:59 Last Admin: 06/25/18 17:40 Dose: 42 mls/hr Multivitamins/Vitamin C 10 ml/Chromium/Copper/Manganese/Zinc 1 ml/ Amino Acids 1,011 mls @ 42 mls/hr IV .Q24H ONE Stop: 06/27/18 17:59 Linezolid (Zyvox 600mg/300ml D5w) 600 mg in 300 mls @ 200 mls/hr IVPB Q12H [facility]; Protocol Ondansetron HCl (Zofran Inj) 4 mg IVP Q6 PRN PRN Reason: Nausea/Vomiting Last Admin: 06/22/18 23:01 Dose: 4 mg Pantoprazole Sodium (Protonix Inj) 40 mg IVP DAILY [facility] Last Admin: 06/26/18 10:25 Dose: 40 mg Tamsulosin HCl (Flomax) 0.4 mg PO DAILY [facility] Last Admin: 06/26/18 10:25 Dose: 0.4 mg - Labs Labs: 06/26/18 06:10 06/26/18 06:09 PT 13.5 SECONDS (9.7-12.2) H 06/21/18 10:43 INR 1.2 06/21/18 10:43 APTT 29 SECONDS (21-34) 06/21/18 10:43 - Head Exam Head Exam: ATRAUMATIC - Eye Exam Eye Exam: Normal appearance - ENT Exam ENT Exam: Mucous Membranes Dry - Respiratory Exam Respiratory Exam: NORMAL BREATHING PATTERN - Cardiovascular Exam Cardiovascular Exam: +S1, +S2 - GI/Abdominal Exam GI & Abdominal Exam: Normal Bowel Sounds Assessment and Plan (1) Leukocytosis Assessment & Plan: improving with antibiotics repeat flow cytometery sent Status: Acute (2) Anemia Assessment & Plan: chronic disease Status: Acute (3) APL (acute promyelocytic leukemia) Assessment & Plan: repeat flow cytometery outpatient f/u with primary oncologist Status: Acute
--- NOTE | 2018-06-26 14:05 | CP.PCM.PN ---
Subjective - Date & Time of Evaluation Date of Evaluation: 06/24/18 Time of Evaluation: 17:00 Objective - Vital Signs/Intake and Output Vital Signs (last 24 hours): Temp Pulse Resp BP Pulse Ox 98.2 F 79 10 L 129/62 100 06/26/18 04:00 06/26/18 10:00 06/26/18 10:00 06/26/18 10:00 06/26/18 10:00 Intake and Output: 06/26/18 06/26/18 06:59 18:59 Intake Total 1324 252 Output Total 600 Balance 724 252 - Medications Medications: Current Medications Albuterol/Ipratropium (Duoneb 3 Mg/0.5 Mg (3 Ml) Ud) 3 ml INH RQ6 [facility] Last Admin: 06/26/18 13:22 Dose: 3 ml Allopurinol (Zyloprim) 100 mg PO DAILY [facility] Last Admin: 06/26/18 10:24 Dose: 100 mg Calcium Acetate (Phoslo) 667 mg GT TIDCC [facility] Last Admin: 06/23/18 18:03 Dose: Not Given Clotrimazole (Lotrimin 1%) 0 gm TOP BID [facility] Last Admin: 06/26/18 10:26 Dose: 1 appl Emollient Ointment (Vaseline Oint) 30 gm TOP Q6H PRN PRN Reason: Dry skin Last Admin: 06/26/18 10:26 Dose: 30 gm Gabapentin (Neurontin) 300 mg PO BID [facility] Last Admin: 06/23/18 18:02 Dose: Not Given Guaifenesin (Mucinex La) 600 mg PO Q12H [facility] Last Admin: 06/23/18 18:07 Dose: Not Given Heparin Sodium (Porcine) (Heparin) 5,000 units SC Q8H [facility] Last Admin: 06/26/18 06:26 Dose: 5,000 units Hydrocortisone Sodium Succinate (Solu-Cortef) 100 mg IV DAILY [facility] Last Admin: 06/26/18 10:25 Dose: 100 mg Metronidazole (Flagyl) 500 mg in 100 mls @ 100 mls/hr IVPB Q8H [facility]; Protocol Last Admin: 06/26/18 11:50 Dose: 100 mls/hr Ciprofloxacin (Cipro 400mg/200ml Dsw) 400 mg in 200 mls @ 133 mls/hr IVPB Q12H [facility]; Protocol Last Admin: 06/26/18 06:25 Dose: 133 mls/hr Multivitamins/Vitamin C 10 ml/Chromium/Copper/Manganese/Zinc 1 ml/ Amino Acids 1,011 mls @ 42 mls/hr IV .Q24H ONE Stop: 06/26/18 17:59 Last Admin: 06/25/18 17:40 Dose: 42 mls/hr Multivitamins/Vitamin C 10 ml/Chromium/Copper/Manganese/Zinc 1 ml/ Amino Acids 1,011 mls @ 42 mls/hr IV .Q24H ONE Stop: 06/27/18 17:59 Linezolid (Zyvox 600mg/300ml D5w) 600 mg in 300 mls @ 200 mls/hr IVPB Q12H [facility]; Protocol Ondansetron HCl (Zofran Inj) 4 mg IVP Q6 PRN PRN Reason: Nausea/Vomiting Last Admin: 06/22/18 23:01 Dose: 4 mg Pantoprazole Sodium (Protonix Inj) 40 mg IVP DAILY [facility] Last Admin: 06/26/18 10:25 Dose: 40 mg Tamsulosin HCl (Flomax) 0.4 mg PO DAILY [facility] Last Admin: 06/26/18 10:25 Dose: 0.4 mg - Labs Labs: 06/26/18 06:10 06/26/18 06:09 PT 13.5 SECONDS (9.7-12.2) H 06/21/18 10:43 INR 1.2 06/21/18 10:43 APTT 29 SECONDS (21-34) 06/21/18 10:43 Assessment and Plan (1) Leukocytosis Status: Acute (2) Anemia Status: Acute (3) APL (acute promyelocytic leukemia) Status: Acute
--- NOTE | 2018-06-26 14:15 | CP.PCM.PN ---
Subjective - Date & Time of Evaluation Date of Evaluation: 06/26/18 Time of Evaluation: 14:12 - Subjective Subjective: CHIEF COMPLAINTS TODAY : Patient had a bowel movement yesterday after Dulcolax. Repeat CAT scan of the abdomen shows still small bowel obstruction with some thickening of the small bowel indicating previous incarceration WBC count is trending up to 21,000 hemoglobin is 8.6 ROS. HEENT : N. Resp : No cough, wheezing ,pleuritic CP ,or hemoptysis Cardio : No anginal CP, PND, orthopnea, palpitation GI : No abd.pain, n/v ,diarrhea or GI bleeding . RATING OFFICER : No headache, vertigo, focal deficit. Musculoskel : No joint swelling , Derm rash all over the body Psych : Normal affect. Ext : No swelling ,calf pain PE. Pt. is alert awake in no distress. V.S As noted in the chart Head ,ear nose,throat and eyes : Normal. Neck : Supple with normal carotids. Lungs: Clear air entry. Heart : S1 & S2 normal with S4. No murmur. Abd : Soft non tender mild distention Neuro : Moves all ext. with no localized deficit. Ext : No edema with intact pulses.Non tender calves Derm : Generalized erythema with exfoliation LABS/RADIOLOGY ASSESSMENT/PLAN : Continue IV antibiotics and IV fluid and NG suction We will repeat chest x-ray in a.m. Discussed with family Objective - Vital Signs/Intake and Output Vital Signs (last 24 hours): Temp Pulse Resp BP Pulse Ox 98.2 F 79 10 L 129/62 100 06/26/18 04:00 06/26/18 10:00 06/26/18 10:00 06/26/18 10:00 06/26/18 10:00 Intake and Output: 06/26/18 06/26/18 11:59 23:59 Intake Total 1140 Output Total 400 Balance 740 - Medications Medications: Current Medications Albuterol/Ipratropium (Duoneb 3 Mg/0.5 Mg (3 Ml) Ud) 3 ml INH RQ6 [facility] Last Admin: 06/26/18 13:22 Dose: 3 ml Allopurinol (Zyloprim) 100 mg PO DAILY [facility] Last Admin: 06/26/18 10:24 Dose: 100 mg Calcium Acetate (Phoslo) 667 mg GT TIDCC [facility] Last Admin: 06/23/18 18:03 Dose: Not Given Clotrimazole (Lotrimin 1%) 0 gm TOP BID [facility] Last Admin: 06/26/18 10:26 Dose: 1 appl Emollient Ointment (Vaseline Oint) 30 gm TOP Q6H PRN PRN Reason: Dry skin Last Admin: 06/26/18 10:26 Dose: 30 gm Gabapentin (Neurontin) 300 mg PO BID [facility] Last Admin: 06/23/18 18:02 Dose: Not Given Guaifenesin (Mucinex La) 600 mg PO Q12H [facility] Last Admin: 06/23/18 18:07 Dose: Not Given Heparin Sodium (Porcine) (Heparin) 5,000 units SC Q8H [facility] Last Admin: 06/26/18 06:26 Dose: 5,000 units Hydrocortisone Sodium Succinate (Solu-Cortef) 100 mg IV DAILY [facility] Last Admin: 06/26/18 10:25 Dose: 100 mg Metronidazole (Flagyl) 500 mg in 100 mls @ 100 mls/hr IVPB Q8H [facility]; Protocol Last Admin: 06/26/18 11:50 Dose: 100 mls/hr Ciprofloxacin (Cipro 400mg/200ml Dsw) 400 mg in 200 mls @ 133 mls/hr IVPB Q12H [facility]; Protocol Last Admin: 06/26/18 06:25 Dose: 133 mls/hr Multivitamins/Vitamin C 10 ml/Chromium/Copper/Manganese/Zinc 1 ml/ Amino Acids 1,011 mls @ 42 mls/hr IV .Q24H ONE Stop: 06/26/18 17:59 Last Admin: 06/25/18 17:40 Dose: 42 mls/hr Multivitamins/Vitamin C 10 ml/Chromium/Copper/Manganese/Zinc 1 ml/ Amino Acids 1,011 mls @ 42 mls/hr IV .Q24H ONE Stop: 06/27/18 17:59 Linezolid (Zyvox 600mg/300ml D5w) 600 mg in 300 mls @ 200 mls/hr IVPB Q12H [facility]; Protocol Ondansetron HCl (Zofran Inj) 4 mg IVP Q6 PRN PRN Reason: Nausea/Vomiting Last Admin: 06/22/18 23:01 Dose: 4 mg Pantoprazole Sodium (Protonix Inj) 40 mg IVP DAILY [facility] Last Admin: 06/26/18 10:25 Dose: 40 mg Tamsulosin HCl (Flomax) 0.4 mg PO DAILY [facility] Last Admin: 06/26/18 10:25 Dose: 0.4 mg - Labs Labs: 06/26/18 06:10 06/26/18 06:09 PT 13.5 SECONDS (9.7-12.2) H 06/21/18 10:43 INR 1.2 06/21/18 10:43 APTT 29 SECONDS (21-34) 06/21/18 10:43
--- NOTE | 2018-06-26 14:26 | CP.PCM.PN ---
Subjective - Date & Time of Evaluation Date of Evaluation: 06/26/18 Time of Evaluation: 14:23 - Subjective Subjective: on ngt suction npo on ppn good uop care discussed w/ RN on face mask, ROS not obtained Objective - Vital Signs/Intake and Output Vital Signs (last 24 hours): Temp Pulse Resp BP Pulse Ox 98.2 F 81 13 136/68 97 06/26/18 04:00 06/26/18 14:00 06/26/18 14:00 06/26/18 13:01 06/26/18 13:01 Intake and Output: 06/26/18 06/26/18 06:59 18:59 Intake Total 1324 252 Output Total 600 Balance 724 252 - Medications Medications: Current Medications Albuterol/Ipratropium (Duoneb 3 Mg/0.5 Mg (3 Ml) Ud) 3 ml INH RQ6 [facility] Last Admin: 06/26/18 13:22 Dose: 3 ml Allopurinol (Zyloprim) 100 mg PO DAILY [facility] Last Admin: 06/26/18 10:24 Dose: 100 mg Calcium Acetate (Phoslo) 667 mg GT TIDCC [facility] Last Admin: 06/23/18 18:03 Dose: Not Given Clotrimazole (Lotrimin 1%) 0 gm TOP BID [facility] Last Admin: 06/26/18 10:26 Dose: 1 appl Emollient Ointment (Vaseline Oint) 30 gm TOP Q6H PRN PRN Reason: Dry skin Last Admin: 06/26/18 10:26 Dose: 30 gm Gabapentin (Neurontin) 300 mg PO BID [facility] Last Admin: 06/23/18 18:02 Dose: Not Given Guaifenesin (Mucinex La) 600 mg PO Q12H [facility] Last Admin: 06/23/18 18:07 Dose: Not Given Heparin Sodium (Porcine) (Heparin) 5,000 units SC Q8H [facility] Last Admin: 06/26/18 14:17 Dose: 5,000 units Hydrocortisone Sodium Succinate (Solu-Cortef) 100 mg IV DAILY [facility] Last Admin: 06/26/18 10:25 Dose: 100 mg Metronidazole (Flagyl) 500 mg in 100 mls @ 100 mls/hr IVPB Q8H [facility]; Protocol Last Admin: 06/26/18 11:50 Dose: 100 mls/hr Ciprofloxacin (Cipro 400mg/200ml Dsw) 400 mg in 200 mls @ 133 mls/hr IVPB Q12H [facility]; Protocol Last Admin: 06/26/18 06:25 Dose: 133 mls/hr Multivitamins/Vitamin C 10 ml/Chromium/Copper/Manganese/Zinc 1 ml/ Amino Acids 1,011 mls @ 42 mls/hr IV .Q24H ONE Stop: 06/26/18 17:59 Last Admin: 06/25/18 17:40 Dose: 42 mls/hr Multivitamins/Vitamin C 10 ml/Chromium/Copper/Manganese/Zinc 1 ml/ Amino Acids 1,011 mls @ 42 mls/hr IV .Q24H ONE Stop: 06/27/18 17:59 Linezolid (Zyvox 600mg/300ml D5w) 600 mg in 300 mls @ 200 mls/hr IVPB Q12H [facility]; Protocol Last Admin: 06/26/18 13:00 Dose: 200 mls/hr Ondansetron HCl (Zofran Inj) 4 mg IVP Q6 PRN PRN Reason: Nausea/Vomiting Last Admin: 06/22/18 23:01 Dose: 4 mg Pantoprazole Sodium (Protonix Inj) 40 mg IVP DAILY [facility] Last Admin: 06/26/18 10:25 Dose: 40 mg Tamsulosin HCl (Flomax) 0.4 mg PO DAILY [facility] Last Admin: 06/26/18 10:25 Dose: 0.4 mg - Labs Labs: 06/26/18 06:10 06/26/18 06:09 PT 13.5 SECONDS (9.7-12.2) H 06/21/18 10:43 INR 1.2 06/21/18 10:43 APTT 29 SECONDS (21-34) 06/21/18 10:43 - Constitutional Appears: Non-toxic, No Acute Distress, Chronically Ill (face mask) - Head Exam Head Exam: NORMAL INSPECTION, NORMOCEPHALIC - Eye Exam Eye Exam: Normal appearance - ENT Exam ENT Exam: Mucous Membranes Dry - Neck Exam Neck Exam: Full ROM, Normal Inspection - Respiratory Exam Respiratory Exam: Clear to Ausculation Bilateral, NORMAL BREATHING PATTERN - Cardiovascular Exam Cardiovascular Exam: REGULAR RHYTHM, RRR - GI/Abdominal Exam GI & Abdominal Exam: Distended, Soft, Diminished Bowel Sounds - Extremities Exam Extremities Exam: Normal Inspection - Neurological Exam Neurological Exam: Awake. absent: Alert - Skin Additional comments: exfoliative rash Assessment and Plan (1) VIOLETTE (acute kidney injury) Status: Acute (2) Azotemia Status: Acute (3) Generalized rash Status: Acute - Assessment and Plan (Free Text) Assessment: small bowel obstruction anemia leukocytosis resolved violette stable renal function on tpn, lytes acceptable
[2018-06-26] MEDS ORDERED: PPN IV ONE (18:00)
[2018-06-27] MEDS: Linezolid 600 mg in D5W 300 ml 600 MG/300 ML BAG IVPB SCH ×2 (01:35→13:19)
[2018-06-27] MEDS: metroNIDAZOLE IV 500 mg/100 ml 500 MG/100 ML BAG IVPB SCH ×3 (03:00→19:49)
[2018-06-27] MEDS: Albuterol-Ipratrop 3 mg / 0.5 (3 ml) UD INH SCH ×4 (03:09→20:29)
[2018-06-27] MEDS: Ciprofloxacin 400mg/200ml D5W 400 MG/200 ML BAG IVPB SCH ×2 (05:31→17:03)
[2018-06-27 06:39] LABS: BASO # 0.1 K/uL (0.0-0.2); BASO % 0.3 % (0.0-2.0); EOS # 0.3 K/uL (0.0-0.7); EOS % 1.3 % (0.0-4.0); HEMOGLOBIN 8.2 g/dL (12.0-18.0); LYMPH # 7.7 K/uL (1.0-4.3); LYMPH % 37.5 % (20.0-40.0); MEAN CELL VOLUME 83.9 fL (80.0-94.0); MEAN CORPUSCULAR HEMOGLOBIN 26.6 pg (27.0-31.0); MEAN CORPUSCULAR HGB CONC 31.7 g/dL (33.0-37.0); MEAN PLATELET VOLUME 9.3 fL (7.2-11.7); MONO # 1.1 K/uL (0.0-0.8); MONO % 5.5 % (0.0-10.0); NEUT # 11.4 K/uL (1.8-7.0); NEUT % 55.4 % (50.0-75.0); NRBC % 1.6 % (0.0-2.0); RBC 3.06 Mil/uL (4.40-5.90); RED CELL DISTRIBUTION WIDTH 14.4 % (11.5-14.5); WHITE BLOOD COUNT 20.5 K/uL (4.8-10.8)
[2018-06-27 07:05] LABS: ALB/GLOB RATIO 0.9 (1.0-2.1); ALBUMIN 2.5 g/dL (3.5-5.0); ALT/SGPT 20 U/L (21-72); AST/SGOT 21 U/L (17-59); BLOOD UREA NITROGEN 12 mg/dL (9-20); CALCIUM 9.4 mg/dl (8.6-10.4); GFR NON-AFRICAN AMERICAN > 60; URIC ACID 3.3 mg/dL (3.5-8.5)
[2018-06-27] MEDS ORDERED: Potassium Phosphate 15 MMOLE in Sodium Chloride 0.9% 250 ML IV ONE (08:30)
--- NOTE | 2018-06-27 08:50 | RAD ---
HISTORY: sob, pna COMPARISON: Chest x-ray performed 06/23/18 TECHNIQUE: Chest, one view. FINDINGS: Right IJ approach central venous catheter extends to the SVC. Nasogastric tube extends expected location of the stomach. LUNGS: Central vascular prominence. Mild pulmonary venous congestion. Small left pleural effusion. Biapical pleural thickening. No definite pneumothorax. CARDIOVASCULAR: Cardiomegaly. Atherosclerotic calcifications of the aorta present. OSSEOUS STRUCTURES: Osseous demineralization. Degenerative changes. VISUALIZED UPPER ABDOMEN: Unremarkable. OTHER FINDINGS: None. IMPRESSION: Right IJ approach central venous catheter extends to the SVC. Nasogastric tube extends expected location of the stomach. Cardiomegaly. Central vascular prominence. Mild pulmonary venous congestion. Small left pleural effusion.
--- NOTE | 2018-06-27 09:19 | CP.PCM.PN ---
Subjective - Date & Time of Evaluation Date of Evaluation: 06/27/18 Time of Evaluation: 09:17 - Subjective Subjective: seen and examined good uop NGT in palce, clamped, output 200cc no events labs noted on face mask, up in chair. unable to obtain ros Objective - Vital Signs/Intake and Output Vital Signs (last 24 hours): Temp Pulse Resp BP Pulse Ox 98.1 F 89 18 131/59 L 90 L 06/27/18 04:00 06/27/18 06:28 06/27/18 06:28 06/27/18 06:28 06/27/18 06:00 Intake and Output: 06/27/18 06/27/18 06:59 18:59 Intake Total 1758 Output Total 915 Balance 843 - Medications Medications: Current Medications Albuterol/Ipratropium (Duoneb 3 Mg/0.5 Mg (3 Ml) Ud) 3 ml INH RQ6 [facility] Last Admin: 06/27/18 03:09 Dose: 3 ml Allopurinol (Zyloprim) 100 mg PO DAILY [facility] Last Admin: 06/26/18 10:24 Dose: 100 mg Calcium Acetate (Phoslo) 667 mg GT TIDCC [facility] Last Admin: 06/23/18 18:03 Dose: Not Given Clotrimazole (Lotrimin 1%) 0 gm TOP BID [facility] Last Admin: 06/26/18 18:16 Dose: 1 appl Emollient Ointment (Vaseline Oint) 30 gm TOP Q6H PRN PRN Reason: Dry skin Last Admin: 06/26/18 10:26 Dose: 30 gm Gabapentin (Neurontin) 300 mg PO BID [facility] Last Admin: 06/23/18 18:02 Dose: Not Given Guaifenesin (Mucinex La) 600 mg PO Q12H [facility] Last Admin: 06/23/18 18:07 Dose: Not Given Heparin Sodium (Porcine) (Heparin) 5,000 units SC Q8H [facility] Last Admin: 06/27/18 05:34 Dose: 5,000 units Hydrocortisone Sodium Succinate (Solu-Cortef) 100 mg IV DAILY [facility] Last Admin: 06/26/18 10:25 Dose: 100 mg Metronidazole (Flagyl) 500 mg in 100 mls @ 100 mls/hr IVPB Q8H [facility]; Protocol Last Admin: 06/27/18 03:00 Dose: 100 mls/hr Ciprofloxacin (Cipro 400mg/200ml Dsw) 400 mg in 200 mls @ 133 mls/hr IVPB Q12H [facility]; Protocol Last Admin: 06/27/18 05:31 Dose: 133 mls/hr Multivitamins/Vitamin C 10 ml/Chromium/Copper/Manganese/Zinc 1 ml/ Amino Acids 1,011 mls @ 42 mls/hr IV .Q24H ONE Stop: 06/27/18 17:59 Last Admin: 06/26/18 18:18 Dose: 42 mls/hr Linezolid (Zyvox 600mg/300ml D5w) 600 mg in 300 mls @ 200 mls/hr IVPB Q12H [facility]; Protocol Last Admin: 06/27/18 01:35 Dose: 200 mls/hr Potassium Phosphate 15 mmole/ (Sodium Chloride) 255 mls @ 63 mls/hr IV ONCE ONE Stop: 06/27/18 12:32 Ondansetron HCl (Zofran Inj) 4 mg IVP Q6 PRN PRN Reason: Nausea/Vomiting Last Admin: 06/22/18 23:01 Dose: 4 mg Pantoprazole Sodium (Protonix Inj) 40 mg IVP DAILY [facility] Last Admin: 06/26/18 10:25 Dose: 40 mg Tamsulosin HCl (Flomax) 0.4 mg PO DAILY [facility] Last Admin: 06/26/18 10:25 Dose: 0.4 mg - Labs Labs: 06/27/18 06:29 06/27/18 06:29 PT 13.5 SECONDS (9.7-12.2) H 06/21/18 10:43 INR 1.2 06/21/18 10:43 APTT 29 SECONDS (21-34) 06/21/18 10:43 - Constitutional Appears: No Acute Distress, Chronically Ill - Head Exam Head Exam: NORMAL INSPECTION, NORMOCEPHALIC - Eye Exam Eye Exam: Normal appearance Pupil Exam: PERRL - ENT Exam ENT Exam: Mucous Membranes Dry, Normal Exam - Neck Exam Neck Exam: Normal Inspection (face mask o2) - Respiratory Exam Respiratory Exam: Clear to Ausculation Bilateral, NORMAL BREATHING PATTERN - Cardiovascular Exam Cardiovascular Exam: REGULAR RHYTHM, RRR - GI/Abdominal Exam GI & Abdominal Exam: Distended, Soft, Diminished Bowel Sounds - Extremities Exam Extremities Exam: Normal Inspection - Neurological Exam Neurological Exam: Awake - Skin Skin Exam: Dry, Intact Assessment and Plan (1) VIOLETTE (acute kidney injury) Status: Acute (2) Azotemia Status: Acute (3) Generalized rash Status: Acute - Assessment and Plan (Free Text) Assessment: small bowel obstruction anemia leukocytosis resolved violette on ppn, monitor electrolytes k and phos supplementation GI f/u
[2018-06-27] MEDS: Clotrimazole 1% Cream(30 gm) TOP SCH ×2 (09:36→17:20)
--- NOTE | 2018-06-27 11:48 | CP.PCM.PN ---
Subjective - Date & Time of Evaluation Date of Evaluation: 06/27/18 Time of Evaluation: 11:48 - Subjective Subjective: (+)flatus (+)BM Objective - Vital Signs/Intake and Output Vital Signs (last 24 hours): Temp Pulse Resp BP Pulse Ox 98.1 F 87 15 107/50 L 87 L 06/27/18 04:00 06/27/18 10:01 06/27/18 10:01 06/27/18 10:01 06/27/18 10:01 Intake and Output: 06/27/18 06/27/18 06:59 18:59 Intake Total 1758 398.5 Output Total 915 200 Balance 843 198.5 - Medications Medications: Current Medications Albuterol/Ipratropium (Duoneb 3 Mg/0.5 Mg (3 Ml) Ud) 3 ml INH RQ6 [facility] Last Admin: 06/27/18 03:09 Dose: 3 ml Allopurinol (Zyloprim) 100 mg PO DAILY [facility] Last Admin: 06/26/18 10:24 Dose: 100 mg Calcium Acetate (Phoslo) 667 mg GT TIDCC [facility] Last Admin: 06/23/18 18:03 Dose: Not Given Clotrimazole (Lotrimin 1%) 0 gm TOP BID [facility] Last Admin: 06/27/18 09:36 Dose: 1 appl Emollient Ointment (Vaseline Oint) 30 gm TOP Q6H PRN PRN Reason: Dry skin Last Admin: 06/26/18 10:26 Dose: 30 gm Gabapentin (Neurontin) 300 mg PO BID [facility] Last Admin: 06/23/18 18:02 Dose: Not Given Guaifenesin (Mucinex La) 600 mg PO Q12H [facility] Last Admin: 06/23/18 18:07 Dose: Not Given Heparin Sodium (Porcine) (Heparin) 5,000 units SC Q8H [facility] Last Admin: 06/27/18 05:34 Dose: 5,000 units Hydrocortisone Sodium Succinate (Solu-Cortef) 100 mg IV DAILY [facility] Last Admin: 06/27/18 09:36 Dose: 100 mg Metronidazole (Flagyl) 500 mg in 100 mls @ 100 mls/hr IVPB Q8H [facility]; Protocol Last Admin: 06/27/18 03:00 Dose: 100 mls/hr Ciprofloxacin (Cipro 400mg/200ml Dsw) 400 mg in 200 mls @ 133 mls/hr IVPB Q12H [facility]; Protocol Last Admin: 06/27/18 05:31 Dose: 133 mls/hr Multivitamins/Vitamin C 10 ml/Chromium/Copper/Manganese/Zinc 1 ml/ Amino Acids 1,011 mls @ 42 mls/hr IV .Q24H ONE Stop: 06/27/18 17:59 Last Admin: 06/26/18 18:18 Dose: 42 mls/hr Linezolid (Zyvox 600mg/300ml D5w) 600 mg in 300 mls @ 200 mls/hr IVPB Q12H [facility]; Protocol Last Admin: 06/27/18 01:35 Dose: 200 mls/hr Potassium Phosphate 15 mmole/ (Sodium Chloride) 255 mls @ 63 mls/hr IV ONCE ONE Stop: 06/27/18 12:32 Last Admin: 06/27/18 09:20 Dose: 63 mls/hr Multivitamins/Vitamin C 10 ml/Chromium/Copper/Manganese/Zinc 1 ml/ Amino Acids 1,011 mls @ 42 mls/hr IV .Q24H ONE Stop: 06/28/18 17:59 Ondansetron HCl (Zofran Inj) 4 mg IVP Q6 PRN PRN Reason: Nausea/Vomiting Last Admin: 06/22/18 23:01 Dose: 4 mg Pantoprazole Sodium (Protonix Inj) 40 mg IVP DAILY [facility] Last Admin: 06/27/18 09:37 Dose: 40 mg Tamsulosin HCl (Flomax) 0.4 mg PO DAILY [facility] Last Admin: 06/27/18 09:37 Dose: 0.4 mg - Labs Labs: 06/27/18 06:29 06/27/18 06:29 PT 13.5 SECONDS (9.7-12.2) H 06/21/18 10:43 INR 1.2 06/21/18 10:43 APTT 29 SECONDS (21-34) 06/21/18 10:43 - Head Exam Head Exam: ATRAUMATIC - Eye Exam Eye Exam: EOMI - Respiratory Exam Respiratory Exam: Clear to Ausculation Bilateral, NORMAL BREATHING PATTERN - Cardiovascular Exam Cardiovascular Exam: REGULAR RHYTHM, +S1, +S2 - GI/Abdominal Exam GI & Abdominal Exam: Normal Bowel Sounds. absent: Distended, Firm, Guarding, Tenderness - Extremities Exam Extremities Exam: Pedal Edema - Neurological Exam Neurological Exam: Alert, Awake, Oriented x3 - Skin Skin Exam: Normal Color, Warm Assessment and Plan - Assessment and Plan (Free Text) Assessment: -VIOLETTE: maintenance IVF -high grade ileuis: (+)BM and (+)flatus -lobar PNA: GNR in sputum is berg sensitive E. coli -PT/OT -vigorous pulmonary toilet -start clear liquids -OOB to chair -replace electrolytes -Patient remains hemodynamically stable
--- NOTE | 2018-06-27 15:00 | CP.PCM.PN ---
Subjective - Date & Time of Evaluation Date of Evaluation: 06/27/18 Time of Evaluation: 15:00 - Subjective Subjective: T Objective - Vital Signs/Intake and Output Vital Signs (last 24 hours): Temp Pulse Resp BP Pulse Ox 96.7 F L 81 13 124/69 99 06/27/18 12:00 06/27/18 14:01 06/27/18 14:01 06/27/18 14:01 06/27/18 14:01 Intake and Output: 06/27/18 06/27/18 11:59 23:59 Intake Total 1783.0 293.0 Output Total 800 300 Balance 983.0 -7.0 - Medications Medications: Current Medications Albuterol/Ipratropium (Duoneb 3 Mg/0.5 Mg (3 Ml) Ud) 3 ml INH RQ6 [facility] Last Admin: 06/27/18 13:47 Dose: 3 ml Allopurinol (Zyloprim) 100 mg PO DAILY [facility] Last Admin: 06/27/18 11:54 Dose: 100 mg Calcium Acetate (Phoslo) 667 mg GT TIDCC [facility] Last Admin: 06/23/18 18:03 Dose: Not Given Clotrimazole (Lotrimin 1%) 0 gm TOP BID [facility] Last Admin: 06/27/18 09:36 Dose: 1 appl Emollient Ointment (Vaseline Oint) 30 gm TOP Q6H PRN PRN Reason: Dry skin Last Admin: 06/26/18 10:26 Dose: 30 gm Gabapentin (Neurontin) 300 mg PO BID [facility] Last Admin: 06/23/18 18:02 Dose: Not Given Guaifenesin (Mucinex La) 600 mg PO Q12H [facility] Last Admin: 06/23/18 18:07 Dose: Not Given Heparin Sodium (Porcine) (Heparin) 5,000 units SC Q8H [facility] Last Admin: 06/27/18 13:37 Dose: 5,000 units Hydrocortisone Sodium Succinate (Solu-Cortef) 100 mg IV DAILY [facility] Last Admin: 06/27/18 09:36 Dose: 100 mg Metronidazole (Flagyl) 500 mg in 100 mls @ 100 mls/hr IVPB Q8H [facility]; Protocol Last Admin: 06/27/18 11:54 Dose: 100 mls/hr Ciprofloxacin (Cipro 400mg/200ml Dsw) 400 mg in 200 mls @ 133 mls/hr IVPB Q12H [facility]; Protocol Last Admin: 06/27/18 05:31 Dose: 133 mls/hr Multivitamins/Vitamin C 10 ml/Chromium/Copper/Manganese/Zinc 1 ml/ Amino Acids 1,011 mls @ 42 mls/hr IV .Q24H ONE Stop: 06/27/18 17:59 Last Admin: 06/26/18 18:18 Dose: 42 mls/hr Linezolid (Zyvox 600mg/300ml D5w) 600 mg in 300 mls @ 200 mls/hr IVPB Q12H [facility]; Protocol Last Admin: 06/27/18 13:19 Dose: 200 mls/hr Multivitamins/Vitamin C 10 ml/Chromium/Copper/Manganese/Zinc 1 ml/ Amino Acids 1,011 mls @ 42 mls/hr IV .Q24H ONE Stop: 06/28/18 17:59 Ondansetron HCl (Zofran Inj) 4 mg IVP Q6 PRN PRN Reason: Nausea/Vomiting Last Admin: 06/22/18 23:01 Dose: 4 mg Pantoprazole Sodium (Protonix Inj) 40 mg IVP DAILY [facility] Last Admin: 06/27/18 09:37 Dose: 40 mg Tamsulosin HCl (Flomax) 0.4 mg PO DAILY [facility] Last Admin: 06/27/18 09:37 Dose: 0.4 mg - Labs Labs: 06/27/18 06:29 06/27/18 06:29 PT 13.5 SECONDS (9.7-12.2) H 06/21/18 10:43 INR 1.2 06/21/18 10:43 APTT 29 SECONDS (21-34) 06/21/18 10:43
[2018-06-27] MEDS ORDERED: PPN IV ONE (18:00)
[2018-06-28] MEDS: Linezolid 600 mg in D5W 300 ml 600 MG/300 ML BAG IVPB SCH ×2 (00:35→13:48)
[2018-06-28] MEDS: Albuterol-Ipratrop 3 mg / 0.5 (3 ml) UD INH SCH ×4 (01:16→19:20)
[2018-06-28] MEDS: metroNIDAZOLE IV 500 mg/100 ml 500 MG/100 ML BAG IVPB SCH ×3 (02:52→19:15)
[2018-06-28] MEDS: Ciprofloxacin 400mg/200ml D5W 400 MG/200 ML BAG IVPB SCH ×2 (05:37→19:14)
[2018-06-28 06:33] LABS: BASO # 0.1 K/uL (0.0-0.2); BASO % 0.5 % (0.0-2.0); EOS # 0.3 K/uL (0.0-0.7); EOS % 1.2 % (0.0-4.0); HEMOGLOBIN 7.9 g/dL (12.0-18.0); LYMPH # 7.4 K/uL (1.0-4.3); LYMPH % 34.5 % (20.0-40.0); MEAN CELL VOLUME 84.1 fL (80.0-94.0); MEAN CORPUSCULAR HEMOGLOBIN 26.3 pg (27.0-31.0); MEAN CORPUSCULAR HGB CONC 31.2 g/dL (33.0-37.0); MEAN PLATELET VOLUME 9.5 fL (7.2-11.7); MONO # 0.8 K/uL (0.0-0.8); MONO % 3.6 % (0.0-10.0); NEUT # 12.9 K/uL (1.8-7.0); NEUT % 60.2 % (50.0-75.0); NRBC % 1.3 % (0.0-2.0); RED CELL DISTRIBUTION WIDTH 14.6 % (11.5-14.5); WHITE BLOOD COUNT 21.4 K/uL (4.8-10.8)
[2018-06-28 06:47] LABS: ALB/GLOB RATIO 0.8 (1.0-2.1); ALBUMIN 2.5 g/dL (3.5-5.0); ALT/SGPT 19 U/L (21-72); AST/SGOT 16 U/L (17-59); BLOOD UREA NITROGEN 11 mg/dL (9-20); CALCIUM 9.2 mg/dl (8.6-10.4); GFR NON-AFRICAN AMERICAN > 60
[2018-06-28] MEDS: Ammonium Lactate 12% Lotion (225 g) EXT SCH ×2 (10:52→19:16)
[2018-06-28] MEDS: Clotrimazole 1% Cream(30 gm) TOP SCH ×2 (10:55→19:16)
--- NOTE | 2018-06-28 12:57 | CP.CCUPN ---
<Kevin Guadalupe - Last Filed: 06/28/18 11:23> CCU Subjective - Physician Review Subjective (Free Text): PGY-1 Critical Care Progress Note for Dr. Booth's service Patient seen and examined at bedside. Patient offers no acute complaints. Patient admits to passing gas and having bowel movements. Patient denies fevers, chills, chest pain, sob, n/v, constipation or diarrhea, and dysuria. Critical Care Time Spent (in minutes): 35 CCU Objective - Vital Signs / Intake & Output Vital Signs (Last 4 hours): Vital Signs Temp Pulse Resp BP Pulse Ox 06/28/18 10:01 86 20 126/54 L 95 06/28/18 10:00 84 15 96 06/28/18 09:01 82 14 114/52 L 96 06/28/18 09:00 86 15 96 06/28/18 08:01 86 15 118/55 L 92 L 06/28/18 08:00 96.7 F L 86 15 95 Intake and Output (Last 8hrs): Intake & Output 06/27/18 06/28/18 06/28/18 22:59 06:59 14:59 Intake Total 1086 986 538 Output Total 195 500 320 Balance 891 486 218 Weight 154 lb 8 oz Intake: Intake, IV Amount 836 986 318 Right Distal Port 336 336 168 Internal Jugular Right Medial Port 500 650 150 Internal Jugular Oral 250 120 Other 100 Output: Gastric Amount 100 200 Right Nares 100 200 Urine 195 400 120 Urethral (Tinajero) 195 400 120 Other: # Bowel Movements 1 0 0 - Physical Exam Head: Positive for: Atraumatic, Normocephalic Pupils: Positive for: PERRL Mouth: Positive for: Dry Neck: Positive for: Other (TLC in left IJ) Respiratory/Chest: Positive for: Clear to Auscultation, Good Air Exchange. Negative for: Respiratory Distress, Accessory Muscle Use Cardiovascular: Positive for: Regular Rate and Rhythm, Normal S1, S2. Negative for: Murmurs Abdomen: Positive for: Normal Bowel Sounds. Negative for: Tenderness, Distention, Peritoneal Signs Upper Extremity: Positive for: Normal Inspection, NORMAL PULSES. Negative for: Cyanosis, Edema Lower Extremity: Positive for: Normal Inspection, NORMAL PULSES. Negative for: Edema, CALF TENDERNESS Neurological: Positive for: GCS=15 Skin: Positive for: Warm, Dry, Other (chronic skin peeling and blistering). Negative for: Rashes, Normal Color Psychiatric: Positive for: Alert, Oriented x 3 - Medications Active Medications: Active Medications Generic Name Dose Route Start Last Admin Trade Name Freq PRN Reason Stop Dose Admin Albuterol/Ipratropium 3 ml 06/21/18 20:00 06/28/18 07:12 Duoneb 3 Mg/0.5 Mg (3 Ml) Ud INH 3 ml RQ6 [facility] Administration Allopurinol 100 mg 06/23/18 10:00 06/28/18 10:09 Zyloprim PO 100 mg DAILY [facility] Administration Calcium Acetate 667 mg 06/23/18 14:00 06/23/18 18:03 Phoslo GT Not Given TIDCC [facility] Clotrimazole 0 gm 06/21/18 18:00 06/28/18 10:55 Lotrimin 1% TOP 1 appl BID [facility] Administration Emollient Ointment 30 gm 06/26/18 09:26 06/26/18 10:26 Vaseline Oint TOP 30 gm Q6H PRN Administration Dry skin Gabapentin 300 mg 06/21/18 18:15 06/23/18 18:02 Neurontin PO Not Given BID [facility] Guaifenesin 600 mg 06/22/18 19:00 06/23/18 18:07 Mucinex La PO Not Given Q12H [facility] Heparin Sodium (Porcine) 5,000 units 06/21/18 22:00 06/28/18 05:39 Heparin SC 5,000 units Q8H [facility] Administration Hydrocortisone Sodium Succinate 100 mg 06/23/18 16:00 06/28/18 10:11 Solu-Cortef IV 100 mg DAILY [facility] Administration Metronidazole 500 mg in 100 mls @ 100 mls/hr 06/23/18 19:00 06/28/18 02:52 Flagyl IVPB 100 mls/hr Q8H [facility] Administration Protocol Ciprofloxacin 400 mg in 200 mls @ 133 mls/hr 06/25/18 06:00 06/28/18 05:37 Cipro 400mg/200ml Dsw IVPB 133 mls/hr Q12H [facility] Administration Protocol Linezolid 600 mg in 300 mls @ 200 mls/hr 06/26/18 13:00 06/28/18 00:35 Zyvox 600mg/300ml D5w IVPB 200 mls/hr Q12H [facility] Administration Protocol Multivitamins/Vitamin C 10 ml/ 1,011 mls @ 42 mls/hr 06/27/18 18:00 06/27/18 17:02 Chromium/Copper/Manganese/ IV 06/28/18 17:59 42 mls/hr Zinc 1 ml/ Amino Acids .Q24H ONE Administration Multivitamins/Vitamin C 10 ml/ 1,011 mls @ 42 mls/hr 06/28/18 18:00 Chromium/Copper/Manganese/ IV 06/29/18 17:59 Zinc 1 ml/ Amino Acids .Q24H ONE Lactic Acid 1 gm 06/28/18 10:00 06/28/18 10:52 Lac-Hydrin 12% Lotion (225 G) EXT 1 gm BID [facility] Administration Ondansetron HCl 4 mg 06/22/18 22:10 06/22/18 23:01 Zofran Inj IVP 4 mg Q6 PRN Administration Nausea/Vomiting Pantoprazole Sodium 40 mg 06/24/18 10:00 06/28/18 10:10 Protonix Inj IVP 40 mg DAILY [facility] Administration Tamsulosin HCl 0.4 mg 06/24/18 10:00 06/28/18 10:08 Flomax PO 0.4 mg DAILY [facility] Administration - Patient Studies Lab Studies: Microbiology Studies 06/26/18 14:45 Blood Culture - Preliminary Blood-Thru Central Line NO GROWTH AFTER 24 HOURS 06/26/18 14:15 Blood Culture - Preliminary Blood-Thru Central Line NO GROWTH AFTER 24 HOURS Lab Studies 06/28/18 06/28/18 Range/Units 05:55 05:55 WBC 21.4 H (4.8-10.8) K/uL RBC 3.00 L (4.40-5.90) Mil/uL Hgb 7.9 L (12.0-18.0) g/dL Hct 25.2 L (35.0-51.0) % MCV 84.1 (80.0-94.0) fL MCH 26.3 L (27.0-31.0) pg MCHC 31.2 L (33.0-37.0) g/dL RDW 14.6 H (11.5-14.5) % Plt Count 349 (130-400) K/uL MPV 9.5 (7.2-11.7) fL Neut % (Auto) 60.2 (50.0-75.0) % Lymph % (Auto) 34.5 (20.0-40.0) % [place] % (Auto) 3.6 (0.0-10.0) % Eos % (Auto) 1.2 (0.0-4.0) % Baso % (Auto) 0.5 (0.0-2.0) % Neut # (Auto) 12.9 H (1.8-7.0) K/uL Lymph # (Auto) 7.4 H (1.0-4.3) K/uL [place] # (Auto) 0.8 (0.0-0.8) K/uL Eos # (Auto) 0.3 (0.0-0.7) K/uL Baso # (Auto) 0.1 (0.0-0.2) K/uL Sodium 136 (132-148) mmol/L Potassium 3.3 L (3.6-5.2) mmol/L Chloride 100 (98-107) mmol/L Carbon Dioxide 31 H (22-30) mmol/L Anion Gap 8 L (10-20) BUN 11 (9-20) mg/dL Creatinine 0.5 L (0.8-1.5) mg/dL Est GFR ( Amer) > 60 Est GFR (Non-Af Amer) > 60 Random Glucose 106 (75-110) mg/dL Calcium 9.2 (8.6-10.4) mg/dl Phosphorus 2.8 (2.5-4.5) mg/dL Magnesium 1.8 (1.6-2.3) mg/dL Total Bilirubin 0.3 (0.2-1.3) mg/dL AST 16 L D (17-59) U/L ALT 19 L (21-72) U/L Alkaline Phosphatase 72 (38-126) U/L Total Protein 5.5 L (6.3-8.3) g/dL Albumin 2.5 L (3.5-5.0) g/dL Globulin 3.0 (2.2-3.9) gm/dL Albumin/Globulin Ratio 0.8 L (1.0-2.1) Laboratory Results - last 24 hr 06/28/18 06/28/18 05:55 05:55 WBC 21.4 H RBC 3.00 L Hgb 7.9 L Hct 25.2 L MCV 84.1 MCH 26.3 L MCHC 31.2 L RDW 14.6 H Plt Count 349 MPV 9.5 Neut % (Auto) 60.2 Lymph % (Auto) 34.5 [place] % (Auto) 3.6 Eos % (Auto) 1.2 Baso % (Auto) 0.5 Neut # (Auto) 12.9 H Lymph # (Auto) 7.4 H [place] # (Auto) 0.8 Eos # (Auto) 0.3 Baso # (Auto) 0.1 Sodium 136 Potassium 3.3 L Chloride 100 Carbon Dioxide 31 H Anion Gap 8 L BUN 11 Creatinine 0.5 L Est GFR ( Amer) > 60 Est GFR (Non-Af Amer) > 60 Random Glucose 106 Calcium 9.2 Phosphorus 2.8 Magnesium 1.8 Total Bilirubin 0.3 AST 16 L D ALT 19 L Alkaline Phosphatase 72 Total Protein 5.5 L Albumin 2.5 L Globulin 3.0 Albumin/Globulin Ratio 0.8 L Review of Systems - Review of Systems Review of Systems: 12 point ROS obtained and noted as in HPI Critical Care Progress Note - Extremities/Vascular Does the Patient have a Central Venous Catheter?: Yes Insertion Site: Internal Jugular Vein Does the Patient need a Central Venous Catheter?: Yes - Prophylaxis GI Prophylaxis GI: PPI - Prophylaxis DVT Prophylaxis DVT: Heparin SQ - Nutrition Nutrition: Nutrition Category Date Time Status Liquid Diet [DIET] Diets 06/27/18 Lunch Active Assessment/Plan - Assessment and Plan (Free Text) Assessment: 73 yo male with PMH of HTN and APL admitted to ICU for sob 2/2 to PNA likely inciting factor aspiration pna 2/2 small bowel obstruction due to abdominal strangulated hernia. Neuro AAOX3 Pulm Duoneb; On aerosol; maintain spo2>90% Cxray shows possible PNA- Ciprofloxacin PNA studies negative; Repeat Procal pending Mucinex CV Remains normotensive GI Liquid diet-ADAT SBO with inguinal hernia- repeat CT abd- persistent sbo w/ decreased amount of small bowel protruding into left inguinal hernia Heme Hx of APL- pending flow cytometry VSS stable Derm Chronic whole body dry scaly skin- Vaseline ointment 5gm q6h; Clotrimazole; Etiology likely related to patient APL (has oncology appointment on July 11) Renal VIOLETTE resolved only Solucortef Phoslo Tamsulosin Banana bag KCl 20 meq x 2 Repeat CMP in AM ID Flagyl/Linezolid for SBO; + E coli sens to Ciprofloxacin DVT ppx: Heparin Nasuea: Zofran GI ppx: Protonix PGY-1 [facility] d/w Dr. Booth <Antoni Booth S - Last Filed: 06/28/18 18:54> CCU Objective - Vital Signs / Intake & Output Vital Signs (Last 4 hours): Vital Signs Pulse BP Pulse Ox 06/28/18 15:01 83 137/82 96 06/28/18 15:00 77 97 Intake and Output (Last 8hrs): Intake & Output 06/28/18 06/28/18 06/28/18 06:59 14:59 22:59 Intake Total 986 1326 42 Output Total 500 415 25 Balance 486 911 17 Weight 154 lb 8 oz Intake: Intake, IV Amount 986 886 42 Right Distal Port 336 336 42 Internal Jugular Right Medial Port 650 550 Internal Jugular Oral 340 0 Other 100 Output: Gastric Amount 100 200 Right Nares 100 200 Urine 400 215 25 Urethral (Tinajero) 400 215 25 Other: # Bowel Movements 0 1 0 - Medications Active Medications: Active Medications Generic Name Dose Route Start Last Admin Trade Name Freq PRN Reason Stop Dose Admin Albuterol/Ipratropium 3 ml 06/21/18 20:00 06/28/18 07:12 Duoneb 3 Mg/0.5 Mg (3 Ml) Ud INH 3 ml RQ6 [facility] Administration Calcium Acetate 667 mg 06/23/18 14:00 06/28/18 12:32 Phoslo GT 667 mg TIDCC [facility] Administration Clotrimazole 0 gm 06/21/18 18:00 06/28/18 10:55 Lotrimin 1% TOP 1 appl BID [facility] Administration Emollient Ointment 30 gm 06/26/18 09:26 06/26/18 10:26 Vaseline Oint TOP 30 gm Q6H PRN Administration Dry skin Gabapentin 300 mg 06/21/18 18:15 06/23/18 18:02 Neurontin PO Not Given BID [facility] Guaifenesin 600 mg 06/22/18 19:00 06/23/18 18:07 Mucinex La PO Not Given Q12H [facility] Heparin Sodium (Porcine) 5,000 units 06/21/18 22:00 06/28/18 13:47 Heparin SC 5,000 units Q8H [facility] Administration Hydrocortisone Sodium Succinate 100 mg 06/23/18 16:00 06/28/18 10:11 Solu-Cortef IV 100 mg DAILY [facility] Administration Metronidazole 500 mg in 100 mls @ 100 mls/hr 06/23/18 19:00 06/28/18 12:19 Flagyl IVPB 100 mls/hr Q8H [facility] Administration Protocol Ciprofloxacin 400 mg in 200 mls @ 133 mls/hr 06/25/18 06:00 06/28/18 05:37 Cipro 400mg/200ml Dsw IVPB 133 mls/hr Q12H [facility] Administration Protocol Linezolid 600 mg in 300 mls @ 200 mls/hr 06/26/18 13:00 06/28/18 13:48 Zyvox 600mg/300ml D5w IVPB 200 mls/hr Q12H [facility] Administration Protocol Multivitamins/Vitamin C 10 ml/ 1,011 mls @ 42 mls/hr 06/28/18 18:00 Chromium/Copper/Manganese/ IV 06/29/18 17:59 Zinc 1 ml/ Amino Acids .Q24H ONE Lactic Acid 1 gm 06/28/18 10:00 06/28/18 10:52 Lac-Hydrin 12% Lotion (225 G) EXT 1 gm BID [facility] Administration Ondansetron HCl 4 mg 06/22/18 22:10 06/22/18 23:01 Zofran Inj IVP 4 mg Q6 PRN Administration Nausea/Vomiting Pantoprazole Sodium 40 mg 06/24/18 10:00 06/28/18 10:10 Protonix Inj IVP 40 mg DAILY [facility] Administration Tamsulosin HCl 0.4 mg 06/24/18 10:00 06/28/18 10:08 Flomax PO 0.4 mg DAILY [facility] Administration - Patient Studies Lab Studies: Microbiology Studies 06/26/18 14:45 Blood Culture - Preliminary Blood-Thru Central Line NO GROWTH AFTER 48 HOURS 06/26/18 14:15 Blood Culture - Preliminary Blood-Thru Central Line NO GROWTH AFTER 48 HOURS Lab Studies 06/28/18 06/28/18 06/28/18 Range/Units 09:35 05:55 05:55 WBC 21.4 H (4.8-10.8) K/uL RBC 3.00 L (4.40-5.90) Mil/uL Hgb 7.9 L (12.0-18.0) g/dL Hct 25.2 L (35.0-51.0) % MCV 84.1 (80.0-94.0) fL MCH 26.3 L (27.0-31.0) pg MCHC 31.2 L (33.0-37.0) g/dL RDW 14.6 H (11.5-14.5) % Plt Count 349 (130-400) K/uL MPV 9.5 (7.2-11.7) fL Neut % (Auto) 60.2 (50.0-75.0) % Lymph % (Auto) 34.5 (20.0-40.0) % [place] % (Auto) 3.6 (0.0-10.0) % Eos % (Auto) 1.2 (0.0-4.0) % Baso % (Auto) 0.5 (0.0-2.0) % Neut # (Auto) 12.9 H (1.8-7.0) K/uL Lymph # (Auto) 7.4 H (1.0-4.3) K/uL [place] # (Auto) 0.8 (0.0-0.8) K/uL Eos # (Auto) 0.3 (0.0-0.7) K/uL Baso # (Auto) 0.1 (0.0-0.2) K/uL Sodium 136 (132-148) mmol/L Potassium 3.3 L (3.6-5.2) mmol/L Chloride 100 (98-107) mmol/L Carbon Dioxide 31 H (22-30) mmol/L Anion Gap 8 L (10-20) BUN 11 (9-20) mg/dL Creatinine 0.5 L (0.8-1.5) mg/dL Est GFR ( Amer) > 60 Est GFR (Non-Af Amer) > 60 Random Glucose 106 (75-110) mg/dL Calcium 9.2 (8.6-10.4) mg/dl Phosphorus 2.8 (2.5-4.5) mg/dL Magnesium 1.8 (1.6-2.3) mg/dL Total Bilirubin 0.3 (0.2-1.3) mg/dL AST 16 L D (17-59) U/L ALT 19 L (21-72) U/L Alkaline Phosphatase 72 (38-126) U/L Total Protein 5.5 L (6.3-8.3) g/dL Albumin 2.5 L (3.5-5.0) g/dL Globulin 3.0 (2.2-3.9) gm/dL Albumin/Globulin Ratio 0.8 L (1.0-2.1) Procalcitonin 0.42 (0.19-0.49) NG/ML Laboratory Results - last 24 hr 06/28/18 06/28/18 06/28/18 05:55 05:55 09:35 WBC 21.4 H RBC 3.00 L Hgb 7.9 L Hct 25.2 L MCV 84.1 MCH 26.3 L MCHC 31.2 L RDW 14.6 H Plt Count 349 MPV 9.5 Neut % (Auto) 60.2 Lymph % (Auto) 34.5 [place] % (Auto) 3.6 Eos % (Auto) 1.2 Baso % (Auto) 0.5 Neut # (Auto) 12.9 H Lymph # (Auto) 7.4 H [place] # (Auto) 0.8 Eos # (Auto) 0.3 Baso # (Auto) 0.1 Sodium 136 Potassium 3.3 L Chloride 100 Carbon Dioxide 31 H Anion Gap 8 L BUN 11 Creatinine 0.5 L Est GFR ( Amer) > 60 Est GFR (Non-Af Amer) > 60 Random Glucose 106 Calcium 9.2 Phosphorus 2.8 Magnesium 1.8 Total Bilirubin 0.3 AST 16 L D ALT 19 L Alkaline Phosphatase 72 Total Protein 5.5 L Albumin 2.5 L Globulin 3.0 Albumin/Globulin Ratio 0.8 L Procalcitonin 0.42 Critical Care Progress Note - Nutrition Nutrition: Nutrition Category Date Time Status Liquid Diet [DIET] Diets 06/27/18 Lunch Active Attending/Attestation - Attestation I have personally seen and examined this patient.: Yes I have fully participated in the care of the patient.: Yes I have reviewed all pertinent clinical information: Yes Notes (Text): 06/28/18 18:52 PATIENT SEEN AND EXAMINED Clinically improving Continue antibiotics Started on clear liquids Follow-up with surgery
--- NOTE | 2018-06-28 12:58 | CP.PCM.PN ---
Subjective - Date & Time of Evaluation Date of Evaluation: 06/28/18 Time of Evaluation: 11:00 - Subjective Subjective: Has some cough. Call placed to pathology lab for flow cytometery results; awaiting results. Objective - Vital Signs/Intake and Output Vital Signs (last 24 hours): Temp Pulse Resp BP Pulse Ox 96.7 F L 86 20 126/54 L 95 06/28/18 08:00 06/28/18 10:01 06/28/18 10:01 06/28/18 10:01 06/28/18 10:01 Intake and Output: 06/28/18 06/28/18 06:59 18:59 Intake Total 1354 538 Output Total 540 320 Balance 814 218 - Medications Medications: Current Medications Albuterol/Ipratropium (Duoneb 3 Mg/0.5 Mg (3 Ml) Ud) 3 ml INH RQ6 [facility] Last Admin: 06/28/18 07:12 Dose: 3 ml Allopurinol (Zyloprim) 100 mg PO DAILY [facility] Last Admin: 06/28/18 10:09 Dose: 100 mg Calcium Acetate (Phoslo) 667 mg GT TIDCC [facility] Last Admin: 06/23/18 18:03 Dose: Not Given Clotrimazole (Lotrimin 1%) 0 gm TOP BID [facility] Last Admin: 06/28/18 10:55 Dose: 1 appl Emollient Ointment (Vaseline Oint) 30 gm TOP Q6H PRN PRN Reason: Dry skin Last Admin: 06/26/18 10:26 Dose: 30 gm Gabapentin (Neurontin) 300 mg PO BID [facility] Last Admin: 06/23/18 18:02 Dose: Not Given Guaifenesin (Mucinex La) 600 mg PO Q12H [facility] Last Admin: 06/23/18 18:07 Dose: Not Given Heparin Sodium (Porcine) (Heparin) 5,000 units SC Q8H [facility] Last Admin: 06/28/18 05:39 Dose: 5,000 units Hydrocortisone Sodium Succinate (Solu-Cortef) 100 mg IV DAILY [facility] Last Admin: 06/28/18 10:11 Dose: 100 mg Metronidazole (Flagyl) 500 mg in 100 mls @ 100 mls/hr IVPB Q8H [facility]; Protocol Last Admin: 06/28/18 02:52 Dose: 100 mls/hr Ciprofloxacin (Cipro 400mg/200ml Dsw) 400 mg in 200 mls @ 133 mls/hr IVPB Q12H [facility]; Protocol Last Admin: 06/28/18 05:37 Dose: 133 mls/hr Linezolid (Zyvox 600mg/300ml D5w) 600 mg in 300 mls @ 200 mls/hr IVPB Q12H [facility]; Protocol Last Admin: 06/28/18 00:35 Dose: 200 mls/hr Multivitamins/Vitamin C 10 ml/Chromium/Copper/Manganese/Zinc 1 ml/ Amino Acids 1,011 mls @ 42 mls/hr IV .Q24H ONE Stop: 06/28/18 17:59 Last Admin: 06/27/18 17:02 Dose: 42 mls/hr Multivitamins/Vitamin C 10 ml/Chromium/Copper/Manganese/Zinc 1 ml/ Amino Acids 1,011 mls @ 42 mls/hr IV .Q24H ONE Stop: 06/29/18 17:59 Lactic Acid (Lac-Hydrin 12% Lotion (225 G)) 1 gm EXT BID [facility] Last Admin: 06/28/18 10:52 Dose: 1 gm Ondansetron HCl (Zofran Inj) 4 mg IVP Q6 PRN PRN Reason: Nausea/Vomiting Last Admin: 06/22/18 23:01 Dose: 4 mg Pantoprazole Sodium (Protonix Inj) 40 mg IVP DAILY [facility] Last Admin: 06/28/18 10:10 Dose: 40 mg Tamsulosin HCl (Flomax) 0.4 mg PO DAILY [facility] Last Admin: 06/28/18 10:08 Dose: 0.4 mg - Labs Labs: 06/28/18 05:55 06/28/18 05:55 PT 13.5 SECONDS (9.7-12.2) H 06/21/18 10:43 INR 1.2 06/21/18 10:43 APTT 29 SECONDS (21-34) 06/21/18 10:43 - Head Exam Head Exam: ATRAUMATIC - Eye Exam Eye Exam: Normal appearance - ENT Exam ENT Exam: Mucous Membranes Dry - Respiratory Exam Respiratory Exam: NORMAL BREATHING PATTERN - Cardiovascular Exam Cardiovascular Exam: +S1, +S2 - GI/Abdominal Exam GI & Abdominal Exam: Normal Bowel Sounds Assessment and Plan (1) Leukocytosis Assessment & Plan: on antibiotics remains elevated ? reactive f/u flow cytometery results Status: Acute (2) Anemia Assessment & Plan: chronic disease Status: Acute (3) APL (acute promyelocytic leukemia) Assessment & Plan: awaiting flow cytomtery results Status: Acute
--- NOTE | 2018-06-28 13:02 | CP.PCM.PN ---
Subjective - Date & Time of Evaluation Date of Evaluation: 06/28/18 Time of Evaluation: 12:48 - Subjective Subjective: on liquid diet on PPN K replaced labs reviewed No BM yet Objective - Vital Signs/Intake and Output Vital Signs (last 24 hours): Temp Pulse Resp BP Pulse Ox 96.7 F L 86 20 126/54 L 95 06/28/18 08:00 06/28/18 10:01 06/28/18 10:01 06/28/18 10:01 06/28/18 10:01 Intake and Output: 06/28/18 06/28/18 06:59 18:59 Intake Total 1354 538 Output Total 540 320 Balance 814 218 - Medications Medications: Current Medications Albuterol/Ipratropium (Duoneb 3 Mg/0.5 Mg (3 Ml) Ud) 3 ml INH RQ6 [facility] Last Admin: 06/28/18 07:12 Dose: 3 ml Calcium Acetate (Phoslo) 667 mg GT TIDCC [facility] Last Admin: 06/28/18 12:32 Dose: 667 mg Clotrimazole (Lotrimin 1%) 0 gm TOP BID [facility] Last Admin: 06/28/18 10:55 Dose: 1 appl Emollient Ointment (Vaseline Oint) 30 gm TOP Q6H PRN PRN Reason: Dry skin Last Admin: 06/26/18 10:26 Dose: 30 gm Gabapentin (Neurontin) 300 mg PO BID [facility] Last Admin: 06/23/18 18:02 Dose: Not Given Guaifenesin (Mucinex La) 600 mg PO Q12H [facility] Last Admin: 06/23/18 18:07 Dose: Not Given Heparin Sodium (Porcine) (Heparin) 5,000 units SC Q8H [facility] Last Admin: 06/28/18 05:39 Dose: 5,000 units Hydrocortisone Sodium Succinate (Solu-Cortef) 100 mg IV DAILY [facility] Last Admin: 06/28/18 10:11 Dose: 100 mg Metronidazole (Flagyl) 500 mg in 100 mls @ 100 mls/hr IVPB Q8H [facility]; Protocol Last Admin: 06/28/18 12:19 Dose: 100 mls/hr Ciprofloxacin (Cipro 400mg/200ml Dsw) 400 mg in 200 mls @ 133 mls/hr IVPB Q12H [facility]; Protocol Last Admin: 06/28/18 05:37 Dose: 133 mls/hr Linezolid (Zyvox 600mg/300ml D5w) 600 mg in 300 mls @ 200 mls/hr IVPB Q12H [facility]; Protocol Last Admin: 06/28/18 00:35 Dose: 200 mls/hr Multivitamins/Vitamin C 10 ml/Chromium/Copper/Manganese/Zinc 1 ml/ Amino Acids 1,011 mls @ 42 mls/hr IV .Q24H ONE Stop: 06/28/18 17:59 Last Admin: 06/27/18 17:02 Dose: 42 mls/hr Multivitamins/Vitamin C 10 ml/Chromium/Copper/Manganese/Zinc 1 ml/ Amino Acids 1,011 mls @ 42 mls/hr IV .Q24H ONE Stop: 06/29/18 17:59 Lactic Acid (Lac-Hydrin 12% Lotion (225 G)) 1 gm EXT BID [facility] Last Admin: 06/28/18 10:52 Dose: 1 gm Ondansetron HCl (Zofran Inj) 4 mg IVP Q6 PRN PRN Reason: Nausea/Vomiting Last Admin: 06/22/18 23:01 Dose: 4 mg Pantoprazole Sodium (Protonix Inj) 40 mg IVP DAILY [facility] Last Admin: 06/28/18 10:10 Dose: 40 mg Tamsulosin HCl (Flomax) 0.4 mg PO DAILY [facility] Last Admin: 06/28/18 10:08 Dose: 0.4 mg - Labs Labs: 06/28/18 05:55 06/28/18 05:55 PT 13.5 SECONDS (9.7-12.2) H 06/21/18 10:43 INR 1.2 06/21/18 10:43 APTT 29 SECONDS (21-34) 06/21/18 10:43 - Constitutional Appears: Non-toxic, Chronically Ill - Head Exam Head Exam: ATRAUMATIC, NORMAL INSPECTION - Eye Exam Eye Exam: EOMI, Normal appearance - ENT Exam ENT Exam: Mucous Membranes Moist - Neck Exam Neck Exam: Full ROM. absent: Lymphadenopathy - Respiratory Exam Respiratory Exam: Decreased Breath Sounds. absent: Accessory Muscle Use - GI/Abdominal Exam GI & Abdominal Exam: Distended, Soft, Hyperactive Bowel Sounds - Neurological Exam Neurological Exam: Alert, Awake - Skin Additional comments: dermatitis Assessment and Plan - Assessment and Plan (Free Text) Assessment: [place] resolved electrolyte abnormalities SBO, improving, on liquid diet replace K
--- NOTE | 2018-06-28 14:30 | CP.PCM.PN ---
Subjective - Date & Time of Evaluation Date of Evaluation: 06/28/18 Time of Evaluation: 14:29 - Subjective Subjective: CHIEF COMPLAINTS TODAY : GI TRACT SLOWLY IMPROVING RENAL ISUFF. HAS IMPROVED H/H LOW 7.8 ROS. HEENT : N. Resp : No cough, wheezing ,pleuritic CP ,or hemoptysis Cardio : No anginal CP, PND, orthopnea, palpitation GI : No abd.pain, n/v ,diarrhea or GI bleeding . RECOVERY ASSISTANT : No headache, vertigo, focal deficit. Musculoskel : No joint swelling , Derm rash all over the body Psych : Normal affect. Ext : No swelling ,calf pain PE. Pt. is alert awake in no distress. V.S As noted in the chart Head ,ear nose,throat and eyes : Normal. Neck : Supple with normal carotids. Lungs: Clear air entry. Heart : S1 & S2 normal with S4. No murmur. Abd : Soft non tender mild distention Neuro : Moves all ext. with no localized deficit. Ext : No edema with intact pulses.Non tender calves Derm : Generalized erythema with exfoliation LABS/RADIOLOGY ASSESSMENT/PLAN : CONT IV AB AND FLUIDS Objective - Vital Signs/Intake and Output Vital Signs (last 24 hours): Temp Pulse Resp BP Pulse Ox 97.3 F L 75 12 121/68 100 06/28/18 12:00 06/28/18 14:01 06/28/18 14:01 06/28/18 14:01 06/28/18 14:01 Intake and Output: 06/28/18 06/28/18 11:59 23:59 Intake Total 1624 Output Total 840 Balance 784 - Medications Medications: Current Medications Albuterol/Ipratropium (Duoneb 3 Mg/0.5 Mg (3 Ml) Ud) 3 ml INH RQ6 [facility] Last Admin: 06/28/18 07:12 Dose: 3 ml Calcium Acetate (Phoslo) 667 mg GT TIDCC [facility] Last Admin: 06/28/18 12:32 Dose: 667 mg Clotrimazole (Lotrimin 1%) 0 gm TOP BID [facility] Last Admin: 06/28/18 10:55 Dose: 1 appl Emollient Ointment (Vaseline Oint) 30 gm TOP Q6H PRN PRN Reason: Dry skin Last Admin: 06/26/18 10:26 Dose: 30 gm Gabapentin (Neurontin) 300 mg PO BID [facility] Last Admin: 06/23/18 18:02 Dose: Not Given Guaifenesin (Mucinex La) 600 mg PO Q12H [facility] Last Admin: 06/23/18 18:07 Dose: Not Given Heparin Sodium (Porcine) (Heparin) 5,000 units SC Q8H [facility] Last Admin: 06/28/18 13:47 Dose: 5,000 units Hydrocortisone Sodium Succinate (Solu-Cortef) 100 mg IV DAILY [facility] Last Admin: 06/28/18 10:11 Dose: 100 mg Metronidazole (Flagyl) 500 mg in 100 mls @ 100 mls/hr IVPB Q8H [facility]; Protocol Last Admin: 06/28/18 12:19 Dose: 100 mls/hr Ciprofloxacin (Cipro 400mg/200ml Dsw) 400 mg in 200 mls @ 133 mls/hr IVPB Q12H [facility]; Protocol Last Admin: 06/28/18 05:37 Dose: 133 mls/hr Linezolid (Zyvox 600mg/300ml D5w) 600 mg in 300 mls @ 200 mls/hr IVPB Q12H [facility]; Protocol Last Admin: 06/28/18 13:48 Dose: 200 mls/hr Multivitamins/Vitamin C 10 ml/Chromium/Copper/Manganese/Zinc 1 ml/ Amino Acids 1,011 mls @ 42 mls/hr IV .Q24H ONE Stop: 06/28/18 17:59 Last Admin: 06/27/18 17:02 Dose: 42 mls/hr Multivitamins/Vitamin C 10 ml/Chromium/Copper/Manganese/Zinc 1 ml/ Amino Acids 1,011 mls @ 42 mls/hr IV .Q24H ONE Stop: 06/29/18 17:59 Lactic Acid (Lac-Hydrin 12% Lotion (225 G)) 1 gm EXT BID [facility] Last Admin: 06/28/18 10:52 Dose: 1 gm Ondansetron HCl (Zofran Inj) 4 mg IVP Q6 PRN PRN Reason: Nausea/Vomiting Last Admin: 06/22/18 23:01 Dose: 4 mg Pantoprazole Sodium (Protonix Inj) 40 mg IVP DAILY [facility] Last Admin: 06/28/18 10:10 Dose: 40 mg Tamsulosin HCl (Flomax) 0.4 mg PO DAILY [facility] Last Admin: 06/28/18 10:08 Dose: 0.4 mg - Labs Labs: 06/28/18 05:55 06/28/18 05:55 PT 13.5 SECONDS (9.7-12.2) H 06/21/18 10:43 INR 1.2 06/21/18 10:43 APTT 29 SECONDS (21-34) 06/21/18 10:43
[2018-06-28] MEDS ORDERED: PPN IV ONE (18:00)
--- NOTE | 2018-06-28 18:07 | CP.PCM.PN ---
Subjective - Date & Time of Evaluation Date of Evaluation: 06/28/18 Time of Evaluation: 18:06 - Subjective Subjective: afebrile,AAO STATES PASSING FLATUS/BM ON FACE MASK. ANXIOUS TO GO HOME. LEUKOCYTOSIS ? STEROIDS HIGH DOSE ROS. HEENT : N. Resp : No cough, wheezing ,pleuritic CP ,or hemoptysis Cardio : No anginal CP, PND, orthopnea, palpitation GI : No abd.pain, n/v ,diarrhea or GI bleeding . 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 Musculoskel : No joint swelling , Derm rash all over the body Psych : Normal affect. Ext : No swelling ,calf pain PE. Pt. is in no distress. V.S As noted in the chart Head ,ear nose,throat and eyes : Normal.+VE NGT Neck : Supple with normal carotids. Lungs: DECREASED BREATH SOUNDS AT THE BASES, FEW RHONCHI RIGHT-SIDED. Heart : S1 & S2 normal with S4. No murmur. Abd : Soft non tender with normal bowel sounds. Neuro : Moves all ext. with no localized deficit. Ext : No edema with intact pulses.Non tender calves Derm : Generalized erythema with exfoliation improving LABS/RADIOLOGY: WBC 21.4 K 3.3 RENAL FUNCTION IMPROVED Repeat CAT scan of the abdomen shows still small bowel obstruction with some thickening of the small bowel indicating previous incarceration. CT ABDOMEN/PELVIS WITH ORAL CONTRAST 06/23/19 -HIGH GRADE SBO/ WITH INCARCERATED LEFT INGUINAL HERNIA . sputum culture +ve E. COLI -PANSENSITIVE Objective - Vital Signs/Intake and Output Vital Signs (last 24 hours): Temp Pulse Resp BP Pulse Ox 97.3 F L 83 12 137/82 96 06/28/18 12:00 06/28/18 15:01 06/28/18 14:01 06/28/18 15:01 06/28/18 15:01 Intake and Output: 06/28/18 06/28/18 06:59 18:59 Intake Total 1354 1368 Output Total 540 440 Balance 814 928 - Medications Medications: Current Medications Albuterol/Ipratropium (Duoneb 3 Mg/0.5 Mg (3 Ml) Ud) 3 ml INH RQ6 [facility] Last Admin: 06/28/18 07:12 Dose: 3 ml Calcium Acetate (Phoslo) 667 mg GT TIDCC [facility] Last Admin: 06/28/18 12:32 Dose: 667 mg Clotrimazole (Lotrimin 1%) 0 gm TOP BID [facility] Last Admin: 06/28/18 10:55 Dose: 1 appl Emollient Ointment (Vaseline Oint) 30 gm TOP Q6H PRN PRN Reason: Dry skin Last Admin: 06/26/18 10:26 Dose: 30 gm Gabapentin (Neurontin) 300 mg PO BID [facility] Last Admin: 06/23/18 18:02 Dose: Not Given Guaifenesin (Mucinex La) 600 mg PO Q12H [facility] Last Admin: 06/23/18 18:07 Dose: Not Given Heparin Sodium (Porcine) (Heparin) 5,000 units SC Q8H [facility] Last Admin: 06/28/18 13:47 Dose: 5,000 units Hydrocortisone Sodium Succinate (Solu-Cortef) 100 mg IV DAILY [facility] Last Admin: 06/28/18 10:11 Dose: 100 mg Metronidazole (Flagyl) 500 mg in 100 mls @ 100 mls/hr IVPB Q8H [facility]; Protocol Last Admin: 06/28/18 12:19 Dose: 100 mls/hr Ciprofloxacin (Cipro 400mg/200ml Dsw) 400 mg in 200 mls @ 133 mls/hr IVPB Q12H [facility]; Protocol Last Admin: 06/28/18 05:37 Dose: 133 mls/hr Linezolid (Zyvox 600mg/300ml D5w) 600 mg in 300 mls @ 200 mls/hr IVPB Q12H [facility]; Protocol Last Admin: 06/28/18 13:48 Dose: 200 mls/hr Multivitamins/Vitamin C 10 ml/Chromium/Copper/Manganese/Zinc 1 ml/ Amino Acids 1,011 mls @ 42 mls/hr IV .Q24H ONE Stop: 06/29/18 17:59 Lactic Acid (Lac-Hydrin 12% Lotion (225 G)) 1 gm EXT BID [facility] Last Admin: 06/28/18 10:52 Dose: 1 gm Ondansetron HCl (Zofran Inj) 4 mg IVP Q6 PRN PRN Reason: Nausea/Vomiting Last Admin: 06/22/18 23:01 Dose: 4 mg Pantoprazole Sodium (Protonix Inj) 40 mg IVP DAILY [facility] Last Admin: 06/28/18 10:10 Dose: 40 mg Tamsulosin HCl (Flomax) 0.4 mg PO DAILY [facility] Last Admin: 06/28/18 10:08 Dose: 0.4 mg - Labs Labs: 06/28/18 05:55 06/28/18 05:55 PT 13.5 SECONDS (9.7-12.2) H 06/21/18 10:43 INR 1.2 06/21/18 10:43 APTT 29 SECONDS (21-34) 06/21/18 10:43 Assessment and Plan (1) SBO (small bowel obstruction) Status: Acute (2) Incarcerated left inguinal hernia Status: Acute (3) Pneumonia Status: Acute (4) Leukocytosis Status: Acute (5) Generalized rash Status: Acute (6) APL (acute promyelocytic leukemia) Status: Acute - Assessment and Plan (Free Text) Plan: ON IV CIPRO 400MG IVPB Q12 [facility] 06/25/18 CONTINUE IV FLAGYL 500MG IV Q 8HRLY 06/23/18 ON IV ZYVOX 600MG IVPB TO COVER FOR STREP/STAPH ( GI/SSTI JACKELYN )06/26/18. WATCH H/H. CAN WE TAPER OFF STEROIDS ? FUNGAL SUPER INFECTION. LEUKOCYTOSIS FROM STEROIDS. SURGERY PER RECOMENDATIONS. PT WANTS A HERNIAL SUPPORT.WILL DISCUSS WITH SURGERY.
[2018-06-28] MEDS: guaiFENesin 600 mg ER Tab PO SCH (19:16)
[2018-06-29] MEDS: Linezolid 600 mg in D5W 300 ml 600 MG/300 ML BAG IVPB SCH ×2 (01:00→14:25)
[2018-06-29] MEDS: Albuterol-Ipratrop 3 mg / 0.5 (3 ml) UD INH SCH ×4 (02:17→19:48)
[2018-06-29] MEDS: metroNIDAZOLE IV 500 mg/100 ml 500 MG/100 ML BAG IVPB SCH ×3 (02:40→18:21)
[2018-06-29] MEDS: Ciprofloxacin 400mg/200ml D5W 400 MG/200 ML BAG IVPB SCH ×2 (05:30→18:21)
[2018-06-29 06:38] LABS: BASO # 0.1 K/uL (0.0-0.2); BASO % 0.4 % (0.0-2.0); EOS # 0.2 K/uL (0.0-0.7); EOS % 0.8 % (0.0-4.0); HEMOGLOBIN 7.7 g/dL (12.0-18.0); LYMPH # 7.6 K/uL (1.0-4.3); LYMPH % 33.7 % (20.0-40.0); MEAN CELL VOLUME 83.2 fL (80.0-94.0); MEAN CORPUSCULAR HEMOGLOBIN 26.4 pg (27.0-31.0); MEAN CORPUSCULAR HGB CONC 31.7 g/dL (33.0-37.0); MEAN PLATELET VOLUME 9.3 fL (7.2-11.7); MONO % 4.2 % (0.0-10.0); NEUT # 13.8 K/uL (1.8-7.0); NEUT % 60.9 % (50.0-75.0); NRBC % 0.7 % (0.0-2.0); RBC 2.9 Mil/uL (4.40-5.90); RED CELL DISTRIBUTION WIDTH 14.8 % (11.5-14.5); WHITE BLOOD COUNT 22.6 K/uL (4.8-10.8)
[2018-06-29] MEDS: guaiFENesin 600 mg ER Tab PO SCH ×2 (06:45→18:21)
[2018-06-29 06:51] LABS: ALB/GLOB RATIO 0.8 (1.0-2.1); ALBUMIN 2.4 g/dL (3.5-5.0); ALT/SGPT 21 U/L (21-72); AST/SGOT 16 U/L (17-59); BLOOD UREA NITROGEN 10 mg/dL (9-20); CALCIUM 9.2 mg/dl (8.6-10.4); GFR NON-AFRICAN AMERICAN > 60
--- NOTE | 2018-06-29 08:47 | CP.PCM.PN ---
Subjective - Date & Time of Evaluation Date of Evaluation: 06/29/18 Time of Evaluation: 08:45 - Subjective Subjective: remains with NGT on PPN VIOLETTE has resolved K very low Objective - Vital Signs/Intake and Output Vital Signs (last 24 hours): Temp Pulse Resp BP Pulse Ox 98.5 F 94 H 13 132/73 93 L 06/29/18 04:00 06/29/18 08:01 06/29/18 08:01 06/29/18 08:01 06/29/18 08:01 Intake and Output: 06/29/18 06/29/18 06:59 18:59 Intake Total 1504 144 Output Total 1202 Balance 302 144 - Medications Medications: Current Medications Albuterol/Ipratropium (Duoneb 3 Mg/0.5 Mg (3 Ml) Ud) 3 ml INH RQ6 [facility] Last Admin: 06/29/18 07:35 Dose: 3 ml Calcium Acetate (Phoslo) 667 mg GT TIDCC [facility] Last Admin: 06/29/18 07:55 Dose: 667 mg Clotrimazole (Lotrimin 1%) 0 gm TOP BID [facility] Last Admin: 06/28/18 19:16 Dose: 1 appl Emollient Ointment (Vaseline Oint) 30 gm TOP Q6H PRN PRN Reason: Dry skin Last Admin: 06/26/18 10:26 Dose: 30 gm Gabapentin (Neurontin) 300 mg PO BID [facility] Last Admin: 06/28/18 19:17 Dose: 300 mg Guaifenesin (Mucinex La) 600 mg PO Q12H [facility] Last Admin: 06/29/18 06:45 Dose: 600 mg Heparin Sodium (Porcine) (Heparin) 5,000 units SC Q8H [facility] Last Admin: 06/29/18 06:45 Dose: 5,000 units Hydrocortisone Sodium Succinate (Solu-Cortef) 100 mg IV DAILY [facility] Last Admin: 06/28/18 10:11 Dose: 100 mg Metronidazole (Flagyl) 500 mg in 100 mls @ 100 mls/hr IVPB Q8H [facility]; Protocol Last Admin: 06/29/18 02:40 Dose: 100 mls/hr Ciprofloxacin (Cipro 400mg/200ml Dsw) 400 mg in 200 mls @ 133 mls/hr IVPB Q12H [facility]; Protocol Last Admin: 06/29/18 05:30 Dose: 133 mls/hr Linezolid (Zyvox 600mg/300ml D5w) 600 mg in 300 mls @ 200 mls/hr IVPB Q12H [facility]; Protocol Last Admin: 06/29/18 01:00 Dose: 200 mls/hr Multivitamins/Vitamin C 10 ml/Chromium/Copper/Manganese/Zinc 1 ml/ Amino Acids 1,011 mls @ 42 mls/hr IV .Q24H ONE Stop: 06/29/18 17:59 Last Admin: 06/28/18 19:16 Dose: 42 mls/hr Lactic Acid (Lac-Hydrin 12% Lotion (225 G)) 1 gm EXT BID [facility] Last Admin: 06/28/18 19:16 Dose: 1 gm Ondansetron HCl (Zofran Inj) 4 mg IVP Q6 PRN PRN Reason: Nausea/Vomiting Last Admin: 06/22/18 23:01 Dose: 4 mg Pantoprazole Sodium (Protonix Inj) 40 mg IVP DAILY [facility] Last Admin: 06/28/18 10:10 Dose: 40 mg Tamsulosin HCl (Flomax) 0.4 mg PO DAILY [facility] Last Admin: 06/28/18 10:08 Dose: 0.4 mg - Labs Labs: 06/29/18 06:26 06/29/18 06:26 PT 13.5 SECONDS (9.7-12.2) H 06/21/18 10:43 INR 1.2 06/21/18 10:43 APTT 29 SECONDS (21-34) 06/21/18 10:43 - Constitutional Appears: No Acute Distress, Chronically Ill - Head Exam Head Exam: ATRAUMATIC, NORMAL INSPECTION - Eye Exam Eye Exam: EOMI, Normal appearance - Neck Exam Neck Exam: Normal Inspection. absent: Tenderness - Respiratory Exam Respiratory Exam: Clear to Ausculation Bilateral, NORMAL BREATHING PATTERN - Cardiovascular Exam Cardiovascular Exam: REGULAR RHYTHM, +S1 - GI/Abdominal Exam GI & Abdominal Exam: Distended, Soft - Extremities Exam Extremities Exam: Normal Inspection. absent: Tenderness - Neurological Exam Neurological Exam: Awake, CN II-XII Intact - Skin Skin Exam: Rash Assessment and Plan (1) APL (acute promyelocytic leukemia) Status: Acute (2) Pneumonia Status: Acute (3) VIOLETTE (acute kidney injury) Status: Acute (4) Pneumonia Status: Acute (5) Mullins-Ildefonso disease Status: Acute - Assessment and Plan (Free Text) Plan: Replete K NGT management PPN as needed
[2018-06-29] MEDS: Clotrimazole 1% Cream(30 gm) TOP SCH ×2 (09:43→18:24)
--- NOTE | 2018-06-29 10:10 | CP.PCM.PN ---
Subjective - Date & Time of Evaluation Date of Evaluation: 06/29/18 Time of Evaluation: 10:10 - Subjective Subjective: Podiatry Progress Note - Dr. Choi 73 y/o male seen at bedside for bilateral fissuring and scaling of plantar feet. Pt resting at time of visit in bedside chair. Says he has no pain to the feet at present. States he thinks the creams are helping with his feet blistering. Per chart review, no episodes of F/C/N/V. Objective - Vital Signs/Intake and Output Vital Signs (last 24 hours): Temp Pulse Resp BP Pulse Ox 98.5 F 94 H 13 132/73 93 L 06/29/18 04:00 06/29/18 08:01 06/29/18 08:01 06/29/18 08:01 06/29/18 08:01 Intake and Output: 06/29/18 06/29/18 06:59 18:59 Intake Total 1504 144 Output Total 1202 Balance 302 144 - Medications Medications: Current Medications Albuterol/Ipratropium (Duoneb 3 Mg/0.5 Mg (3 Ml) Ud) 3 ml INH RQ6 [facility] Last Admin: 06/29/18 07:35 Dose: 3 ml Calcium Acetate (Phoslo) 667 mg GT TIDCC [facility] Last Admin: 06/29/18 07:55 Dose: 667 mg Clotrimazole (Lotrimin 1%) 0 gm TOP BID [facility] Last Admin: 06/29/18 09:43 Dose: 1 appl Emollient Ointment (Vaseline Oint) 30 gm TOP Q6H PRN PRN Reason: Dry skin Last Admin: 06/26/18 10:26 Dose: 30 gm Gabapentin (Neurontin) 300 mg PO BID [facility] Last Admin: 06/29/18 09:44 Dose: 300 mg Guaifenesin (Mucinex La) 600 mg PO Q12H [facility] Last Admin: 06/29/18 06:45 Dose: 600 mg Heparin Sodium (Porcine) (Heparin) 5,000 units SC Q8H [facility] Last Admin: 06/29/18 06:45 Dose: 5,000 units Hydrocortisone Sodium Succinate (Solu-Cortef) 100 mg IV DAILY [facility] Last Admin: 06/29/18 09:45 Dose: 100 mg Metronidazole (Flagyl) 500 mg in 100 mls @ 100 mls/hr IVPB Q8H [facility]; Protocol Last Admin: 06/29/18 02:40 Dose: 100 mls/hr Ciprofloxacin (Cipro 400mg/200ml Dsw) 400 mg in 200 mls @ 133 mls/hr IVPB Q12H [facility]; Protocol Last Admin: 06/29/18 05:30 Dose: 133 mls/hr Linezolid (Zyvox 600mg/300ml D5w) 600 mg in 300 mls @ 200 mls/hr IVPB Q12H [facility]; Protocol Last Admin: 06/29/18 01:00 Dose: 200 mls/hr Multivitamins/Vitamin C 10 ml/Chromium/Copper/Manganese/Zinc 1 ml/ Amino Acids 1,011 mls @ 42 mls/hr IV .Q24H ONE Stop: 06/29/18 17:59 Last Admin: 06/28/18 19:16 Dose: 42 mls/hr Potassium Chloride (Potassium Chloride 20 Meq/100 Ml) 20 meq in 100 mls @ 50 mls/hr IVPB ONCE ONE Stop: 06/29/18 10:46 Last Admin: 06/29/18 09:44 Dose: 50 mls/hr Lactic Acid (Lac-Hydrin 12% Lotion (225 G)) 1 gm EXT BID [facility] Last Admin: 06/28/18 19:16 Dose: 1 gm Ondansetron HCl (Zofran Inj) 4 mg IVP Q6 PRN PRN Reason: Nausea/Vomiting Last Admin: 06/22/18 23:01 Dose: 4 mg Pantoprazole Sodium (Protonix Inj) 40 mg IVP DAILY [facility] Last Admin: 06/29/18 09:44 Dose: 40 mg Tamsulosin HCl (Flomax) 0.4 mg PO DAILY [facility] Last Admin: 06/29/18 09:43 Dose: 0.4 mg - Labs Labs: 06/29/18 06:26 06/29/18 06:26 PT 13.5 SECONDS (9.7-12.2) H 06/21/18 10:43 INR 1.2 06/21/18 10:43 APTT 29 SECONDS (21-34) 06/21/18 10:43 - Constitutional Appears: Well, Non-toxic, No Acute Distress - Extremities Exam Additional comments: Lower extremity focused exam: VASC: DP/PT pulses palpable 2/4 B/L. CFT <3 seconds to all digits. TG warm to warm. Non-pitting edema noted to bilateral LE NEURO: Gross sensation intact B/L DERM: Severe xerosis + diffuse annular scaling present with fissuring throughout plantar aspect of foot B/L. No drainage, no purulence is noted. Mild diffuse erythema noted to bilateral LE. ORTHO: Mild-moderate tenderness on palpation to fissures and scaling of plantar foot B/L. ROM limited 2/2 edema - Neurological Exam Neurological Exam: Alert, Awake - Psychiatric Exam Psychiatric exam: Normal Affect, Normal Mood Assessment and Plan - Assessment and Plan (Free Text) Assessment: 73 y/o male with painful fissures and severe bilateral tinea pedis to plantar feet Plan: Patient seen and evaluated Discussed plan with attending, Dr. Choi Clotrimazole cream applied to B/L lower extremities -to be applied by nursing topically BID Feet are clinically improving - plan to continue current treatment Will continue to monitor patient Stable from podiatry standpoint
[2018-06-29] MEDS: Ammonium Lactate 12% Lotion (225 g) EXT SCH ×2 (10:32→18:24)
[2018-06-29] MEDS: Pantoprazole 40 mg EC Tab PO SCH (10:57)
[2018-06-29] MEDS ORDERED: Potassium Chloride 20 mEq ER Tab PO ONE (11:00)
--- NOTE | 2018-06-29 11:05 | CP.CCUPN ---
<Kevin Guadalupe - Last Filed: 06/29/18 12:03> CCU Subjective - Physician Review Subjective (Free Text): PGY-1 Critical Care Progress Note for Dr. Bradley's service Patient seen and examined at bedside. Patient had 700 drained through ng tube overnight. Patient denies fevers, chills, chest pain, sob, n/v, constipation or diarrhea, and dysuria. Advance diet as tolerated. CCU Objective - Vital Signs / Intake & Output Vital Signs (Last 4 hours): Vital Signs Pulse Resp BP Pulse Ox 06/29/18 10:01 84 18 119/48 L 96 06/29/18 09:43 87 17 123/66 99 06/29/18 08:01 94 H 13 132/73 93 L Intake and Output (Last 8hrs): Intake & Output 06/28/18 06/29/18 06/29/18 22:59 06:59 14:59 Intake Total 636 1036 144 Output Total 631 995 Balance 5 41 144 Weight 150 lb 4 oz Intake: Intake, IV Amount 636 936 84 Right Distal Port 336 336 84 Internal Jugular Right Medial Port 200 Internal Jugular Right Proximal Port 100 600 Internal Jugular Oral 0 100 Other 60 Output: Gastric Amount 200 700 Right Nares 200 700 Urine 431 295 Urethral (Tinajero) 431 295 Other: # Bowel Movements 0 - Physical Exam Head: Positive for: Atraumatic, Normocephalic Pupils: Positive for: PERRL Mouth: Positive for: Dry Nose (Internal): Positive for: Other (NG tube in place) Neck: Positive for: Other (TLC in left IJ) Respiratory/Chest: Positive for: Clear to Auscultation, Good Air Exchange. Negative for: Respiratory Distress, Accessory Muscle Use Cardiovascular: Positive for: Regular Rate and Rhythm, Normal S1, S2. Negative for: Murmurs Abdomen: Positive for: Normal Bowel Sounds. Negative for: Tenderness, Distention, Peritoneal Signs Upper Extremity: Positive for: Normal Inspection, NORMAL PULSES. Negative for: Cyanosis, Edema Lower Extremity: Positive for: Normal Inspection, NORMAL PULSES. Negative for: Edema, CALF TENDERNESS Neurological: Positive for: GCS=15 Skin: Positive for: Warm, Dry, Other (chronic skin peeling and blistering). Negative for: Rashes, Normal Color Psychiatric: Positive for: Alert, Oriented x 3 - Medications Active Medications: Active Medications Generic Name Dose Route Start Last Admin Trade Name Freq PRN Reason Stop Dose Admin Albuterol/Ipratropium 3 ml 06/21/18 20:00 06/29/18 07:35 Duoneb 3 Mg/0.5 Mg (3 Ml) Ud INH 3 ml RQ6 [facility] Administration Clotrimazole 0 gm 06/21/18 18:00 06/29/18 09:43 Lotrimin 1% TOP 1 appl BID [facility] Administration Emollient Ointment 30 gm 06/26/18 09:26 06/26/18 10:26 Vaseline Oint TOP 30 gm Q6H PRN Administration Dry skin Gabapentin 300 mg 06/21/18 18:15 06/29/18 09:44 Neurontin PO 300 mg BID [facility] Administration Guaifenesin 600 mg 06/22/18 19:00 06/29/18 06:45 Mucinex La PO 600 mg Q12H [facility] Administration Heparin Sodium (Porcine) 5,000 units 06/21/18 22:00 06/29/18 06:45 Heparin SC 5,000 units Q8H [facility] Administration Hydrocortisone Sodium Succinate 50 mg 06/30/18 10:00 Solu-Cortef IV DAILY [facility] Metronidazole 500 mg in 100 mls @ 100 mls/hr 06/23/18 19:00 06/29/18 10:33 Flagyl IVPB 100 mls/hr Q8H [facility] Administration Protocol Ciprofloxacin 400 mg in 200 mls @ 133 mls/hr 06/25/18 06:00 06/29/18 05:30 Cipro 400mg/200ml Dsw IVPB 133 mls/hr Q12H [facility] Administration Protocol Linezolid 600 mg in 300 mls @ 200 mls/hr 06/26/18 13:00 06/29/18 01:00 Zyvox 600mg/300ml D5w IVPB 200 mls/hr Q12H [facility] Administration Protocol Multivitamins/Vitamin C 10 ml/ 1,011 mls @ 42 mls/hr 06/28/18 18:00 06/28/18 19:16 Chromium/Copper/Manganese/ IV 06/29/18 17:59 42 mls/hr Zinc 1 ml/ Amino Acids .Q24H ONE Administration Lactic Acid 1 gm 06/28/18 10:00 06/29/18 10:32 Lac-Hydrin 12% Lotion (225 G) EXT 1 gm BID [facility] Administration Ondansetron HCl 4 mg 06/22/18 22:10 06/22/18 23:01 Zofran Inj IVP 4 mg Q6 PRN Administration Nausea/Vomiting Pantoprazole Sodium 40 mg 06/29/18 11:00 06/29/18 10:57 Protonix Ec Tab PO Not Given DAILY [facility] Tamsulosin HCl 0.4 mg 06/24/18 10:00 06/29/18 09:43 Flomax PO 0.4 mg DAILY [facility] Administration - Patient Studies Lab Studies: Microbiology Studies 06/26/18 14:45 Blood Culture - Preliminary Blood-Thru Central Line NO GROWTH AFTER 48 HOURS 06/26/18 14:15 Blood Culture - Preliminary Blood-Thru Central Line NO GROWTH AFTER 48 HOURS Lab Studies 06/29/18 06/29/18 06/28/18 Range/Units 06:26 06:26 09:35 WBC 22.6 H (4.8-10.8) K/uL RBC 2.90 L (4.40-5.90) Mil/uL Hgb 7.7 L (12.0-18.0) g/dL Hct 24.1 L (35.0-51.0) % MCV 83.2 (80.0-94.0) fL MCH 26.4 L (27.0-31.0) pg MCHC 31.7 L (33.0-37.0) g/dL RDW 14.8 H (11.5-14.5) % Plt Count 402 H (130-400) K/uL MPV 9.3 (7.2-11.7) fL Neut % (Auto) 60.9 (50.0-75.0) % Lymph % (Auto) 33.7 (20.0-40.0) % Bland % (Auto) 4.2 (0.0-10.0) % Eos % (Auto) 0.8 (0.0-4.0) % Baso % (Auto) 0.4 (0.0-2.0) % Neut # (Auto) 13.8 H (1.8-7.0) K/uL Lymph # (Auto) 7.6 H (1.0-4.3) K/uL Bland # (Auto) 1.0 H (0.0-0.8) K/uL Eos # (Auto) 0.2 (0.0-0.7) K/uL Baso # (Auto) 0.1 (0.0-0.2) K/uL Sodium 134 (132-148) mmol/L Potassium 3.3 L (3.6-5.2) mmol/L Chloride 100 (98-107) mmol/L Carbon Dioxide 28 (22-30) mmol/L Anion Gap 9 L (10-20) BUN 10 (9-20) mg/dL Creatinine 0.5 L (0.8-1.5) mg/dL Est GFR ( Amer) > 60 Est GFR (Non-Af Amer) > 60 Random Glucose 86 (75-110) mg/dL Calcium 9.2 (8.6-10.4) mg/dl Phosphorus 2.6 (2.5-4.5) mg/dL Magnesium 1.7 (1.6-2.3) mg/dL Total Bilirubin 0.3 (0.2-1.3) mg/dL AST 16 L (17-59) U/L ALT 21 (21-72) U/L Alkaline Phosphatase 71 (38-126) U/L Total Protein 5.3 L (6.3-8.3) g/dL Albumin 2.4 L (3.5-5.0) g/dL Globulin 2.9 (2.2-3.9) gm/dL Albumin/Globulin Ratio 0.8 L (1.0-2.1) Procalcitonin 0.42 (0.19-0.49) NG/ML Laboratory Results - last 24 hr 06/28/18 06/29/18 06/29/18 09:35 06:26 06:26 WBC 22.6 H RBC 2.90 L Hgb 7.7 L Hct 24.1 L MCV 83.2 MCH 26.4 L MCHC 31.7 L RDW 14.8 H Plt Count 402 H MPV 9.3 Neut % (Auto) 60.9 Lymph % (Auto) 33.7 Bland % (Auto) 4.2 Eos % (Auto) 0.8 Baso % (Auto) 0.4 Neut # (Auto) 13.8 H Lymph # (Auto) 7.6 H Bland # (Auto) 1.0 H Eos # (Auto) 0.2 Baso # (Auto) 0.1 Sodium 134 Potassium 3.3 L Chloride 100 Carbon Dioxide 28 Anion Gap 9 L BUN 10 Creatinine 0.5 L Est GFR ( Amer) > 60 Est GFR (Non-Af Amer) > 60 Random Glucose 86 Calcium 9.2 Phosphorus 2.6 Magnesium 1.7 Total Bilirubin 0.3 AST 16 L ALT 21 Alkaline Phosphatase 71 Total Protein 5.3 L Albumin 2.4 L Globulin 2.9 Albumin/Globulin Ratio 0.8 L Procalcitonin 0.42 Review of Systems - Review of Systems Review of Systems: 12 point ROS obtained and noted as in HPI Critical Care Progress Note - Extremities/Vascular Does the Patient have a Central Venous Catheter?: Yes Insertion Site: Internal Jugular Vein Does the Patient need a Central Venous Catheter?: Yes Does the Patient have a Tinajero Catheter?: Yes Does the Patient need a Tinajero Catheter?: Yes Catheter Insertion Criteria: Need for accurate measurement of output in critically ill patient - Prophylaxis GI Prophylaxis GI: PPI - Prophylaxis DVT Prophylaxis DVT: Heparin SQ - Nutrition Nutrition: Nutrition Category Date Time Status Liquid Diet [DIET] Diets 06/27/18 Lunch Active Assessment/Plan - Assessment and Plan (Free Text) Assessment: 73 yo male with PMH of HTN and APL admitted to ICU for sob 2/2 to PNA likely inciting factor aspiration pna 2/2 small bowel obstruction due to abdominal strangulated hernia. Neuro AAOX3 Pulm Duoneb; On aerosol; maintain spo2>90% Cxray shows possible PNA- Ciprofloxacin PNA studies negative; Procal on admission- 133.1 ; Repeat Procal 0.42 Mucinex CV Remains normotensive GI Liquid diet-ADAT; PPN feeds SBO with inguinal hernia- repeat CT abd- persistent sbo w/ decreased amount of small bowel protruding into left inguinal hernia- continue medical management Heme Hx of APL- pending flow cytometry VSS stable Derm Chronic whole body dry scaly skin- Vaseline ointment 5gm q6h; Clotrimazole; Etiology likely related to patient APL (has oncology appointment on July 11) Renal VIOLETTE resolved only Solucortef decreased Repleted potassium- Kcl IVPB and oral Tamsulosin Banana bag Repeat CMP in AM ID Flagyl/Linezolid for SBO; + E coli sens to Ciprofloxacin Elevated WBC- could be APL vs steroid induced vs infection (less likely) DVT ppx: Heparin Nasuea: Zofran GI ppx: Protonix PGY-1 Kevin Guadalupe Medical Management d/w Dr. Bradley <Rusty Bradley M - Last Filed: 06/29/18 17:03> CCU Objective - Vital Signs / Intake & Output Vital Signs (Last 4 hours): Vital Signs Pulse Resp BP Pulse Ox 06/29/18 14:01 76 13 121/58 L 93 L Intake and Output (Last 8hrs): Intake & Output 06/29/18 06/29/18 06/29/18 06:59 14:59 22:59 Intake Total 1036 696 242 Output Total 995 Balance 41 696 242 Weight 150 lb 4 oz Intake: Intake, IV Amount 936 636 242 Right Distal Port 336 336 42 Internal Jugular Right Proximal Port 600 300 200 Internal Jugular Oral 100 Other 60 Output: Gastric Amount 700 Right Nares 700 Urine 295 Urethral (Tinajero) 295 - Medications Active Medications: Active Medications Generic Name Dose Route Start Last Admin Trade Name Freq PRN Reason Stop Dose Admin Albuterol/Ipratropium 3 ml 06/21/18 20:00 06/29/18 13:10 Duoneb 3 Mg/0.5 Mg (3 Ml) Ud INH 3 ml RQ6 [facility] Administration Clotrimazole 0 gm 06/21/18 18:00 06/29/18 09:43 Lotrimin 1% TOP 1 appl BID [facility] Administration Emollient Ointment 30 gm 06/26/18 09:26 06/26/18 10:26 Vaseline Oint TOP 30 gm Q6H PRN Administration Dry skin Gabapentin 300 mg 06/21/18 18:15 06/29/18 09:44 Neurontin PO 300 mg BID [facility] Administration Guaifenesin 600 mg 06/22/18 19:00 06/29/18 06:45 Mucinex La PO 600 mg Q12H [facility] Administration Hydrocortisone Sodium Succinate 50 mg 06/30/18 10:00 Solu-Cortef IV DAILY [facility] Metronidazole 500 mg in 100 mls @ 100 mls/hr 06/23/18 19:00 06/29/18 10:33 Flagyl IVPB 100 mls/hr Q8H [facility] Administration Protocol Ciprofloxacin 400 mg in 200 mls @ 133 mls/hr 06/25/18 06:00 06/29/18 05:30 Cipro 400mg/200ml Dsw IVPB 133 mls/hr Q12H [facility] Administration Protocol Linezolid 600 mg in 300 mls @ 200 mls/hr 06/26/18 13:00 06/29/18 14:25 Zyvox 600mg/300ml D5w IVPB 200 mls/hr Q12H [facility] Administration Protocol Multivitamins/Vitamin C 10 ml/ 1,011 mls @ 42 mls/hr 06/28/18 18:00 06/28/18 19:16 Chromium/Copper/Manganese/ IV 06/29/18 17:59 42 mls/hr Zinc 1 ml/ Amino Acids .Q24H ONE Administration Multivitamins/Vitamin C 10 ml/ 1,011 mls @ 42 mls/hr 06/29/18 18:00 Chromium/Copper/Manganese/ IV 06/30/18 17:59 Zinc 1 ml/ Amino Acids .Q24H ONE Lactic Acid 1 gm 06/28/18 10:00 06/29/18 10:32 Lac-Hydrin 12% Lotion (225 G) EXT 1 gm BID [facility] Administration Ondansetron HCl 4 mg 06/22/18 22:10 06/22/18 23:01 Zofran Inj IVP 4 mg Q6 PRN Administration Nausea/Vomiting Pantoprazole Sodium 40 mg 06/29/18 11:00 06/29/18 10:57 Protonix Ec Tab PO Not Given DAILY [facility] Tamsulosin HCl 0.4 mg 06/24/18 10:00 06/29/18 09:43 Flomax PO 0.4 mg DAILY [facility] Administration - Patient Studies Lab Studies: Microbiology Studies 06/26/18 14:45 Blood Culture - Preliminary Blood-Thru Central Line NO GROWTH AFTER 3 DAYS 06/26/18 14:15 Blood Culture - Preliminary Blood-Thru Central Line NO GROWTH AFTER 3 DAYS Lab Studies 06/29/18 06/29/18 Range/Units 06:26 06:26 WBC 22.6 H (4.8-10.8) K/uL RBC 2.90 L (4.40-5.90) Mil/uL Hgb 7.7 L (12.0-18.0) g/dL Hct 24.1 L (35.0-51.0) % MCV 83.2 (80.0-94.0) fL MCH 26.4 L (27.0-31.0) pg MCHC 31.7 L (33.0-37.0) g/dL RDW 14.8 H (11.5-14.5) % Plt Count 402 H (130-400) K/uL MPV 9.3 (7.2-11.7) fL Neut % (Auto) 60.9 (50.0-75.0) % Lymph % (Auto) 33.7 (20.0-40.0) % Bland % (Auto) 4.2 (0.0-10.0) % Eos % (Auto) 0.8 (0.0-4.0) % Baso % (Auto) 0.4 (0.0-2.0) % Neut # (Auto) 13.8 H (1.8-7.0) K/uL Lymph # (Auto) 7.6 H (1.0-4.3) K/uL Bland # (Auto) 1.0 H (0.0-0.8) K/uL Eos # (Auto) 0.2 (0.0-0.7) K/uL Baso # (Auto) 0.1 (0.0-0.2) K/uL Sodium 134 (132-148) mmol/L Potassium 3.3 L (3.6-5.2) mmol/L Chloride 100 (98-107) mmol/L Carbon Dioxide 28 (22-30) mmol/L Anion Gap 9 L (10-20) BUN 10 (9-20) mg/dL Creatinine 0.5 L (0.8-1.5) mg/dL Est GFR ( Amer) > 60 Est GFR (Non-Af Amer) > 60 Random Glucose 86 (75-110) mg/dL Calcium 9.2 (8.6-10.4) mg/dl Phosphorus 2.6 (2.5-4.5) mg/dL Magnesium 1.7 (1.6-2.3) mg/dL Total Bilirubin 0.3 (0.2-1.3) mg/dL AST 16 L (17-59) U/L ALT 21 (21-72) U/L Alkaline Phosphatase 71 (38-126) U/L Total Protein 5.3 L (6.3-8.3) g/dL Albumin 2.4 L (3.5-5.0) g/dL Globulin 2.9 (2.2-3.9) gm/dL Albumin/Globulin Ratio 0.8 L (1.0-2.1) Laboratory Results - last 24 hr 06/29/18 06/29/18 06:26 06:26 WBC 22.6 H RBC 2.90 L Hgb 7.7 L Hct 24.1 L MCV 83.2 MCH 26.4 L MCHC 31.7 L RDW 14.8 H Plt Count 402 H MPV 9.3 Neut % (Auto) 60.9 Lymph % (Auto) 33.7 Bland % (Auto) 4.2 Eos % (Auto) 0.8 Baso % (Auto) 0.4 Neut # (Auto) 13.8 H Lymph # (Auto) 7.6 H Bland # (Auto) 1.0 H Eos # (Auto) 0.2 Baso # (Auto) 0.1 Sodium 134 Potassium 3.3 L Chloride 100 Carbon Dioxide 28 Anion Gap 9 L BUN 10 Creatinine 0.5 L Est GFR ( Amer) > 60 Est GFR (Non-Af Amer) > 60 Random Glucose 86 Calcium 9.2 Phosphorus 2.6 Magnesium 1.7 Total Bilirubin 0.3 AST 16 L ALT 21 Alkaline Phosphatase 71 Total Protein 5.3 L Albumin 2.4 L Globulin 2.9 Albumin/Globulin Ratio 0.8 L Critical Care Progress Note - Nutrition Nutrition: Nutrition Category Date Time Status Liquid Diet [DIET] Diets 06/27/18 Lunch Active Attending/Attestation - Attestation I have personally seen and examined this patient.: Yes I have fully participated in the care of the patient.: Yes I have reviewed all pertinent clinical information: Yes Notes (Text): 06/29/18 17:03 Today: June The Patient was seen and examined at the bedside, Medical records reviewed, and management issues were discussed and formulated with the house staff. I have reviewed all the relevant clinical, laboratory, hemodynamic, radiographic data and medications Events reviewed Pain issues, skin care, head of the bed elevation, glycemic control were addressed. Agree with above resident's assessment and treatment plans of care as transcribed in Dr. Guadalupe's note.
--- NOTE | 2018-06-29 14:19 | CP.PCM.PN ---
Subjective - Date & Time of Evaluation Date of Evaluation: 06/29/18 Time of Evaluation: 14:18 - Subjective Subjective: CHIEF COMPLAINTS TODAY : GI TRACT SLOWLY IMPROVING STILL ON NGT SUCTION RENAL ISUFF. HAS IMPROVED H/H LOW 7.7 ROS. HEENT : N. Resp : No cough, wheezing ,pleuritic CP ,or hemoptysis Cardio : No anginal CP, PND, orthopnea, palpitation GI : No abd.pain, n/v ,diarrhea or GI bleeding . 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 Musculoskel : No joint swelling , Derm rash all over the body Psych : Normal affect. Ext : No swelling ,calf pain PE. Pt. is alert awake in no distress. V.S As noted in the chart Head ,ear nose,throat and eyes : Normal. Neck : Supple with normal carotids. Lungs: Clear air entry. Heart : S1 & S2 normal with S4. No murmur. Abd : Soft non tender mild distention Neuro : Moves all ext. with no localized deficit. Ext : No edema with intact pulses.Non tender calves Derm : Generalized erythema with exfoliation LABS/RADIOLOGY ASSESSMENT/PLAN : CONT IV AB AND FLUIDS Objective - Vital Signs/Intake and Output Vital Signs (last 24 hours): Temp Pulse Resp BP Pulse Ox 98.5 F 84 18 119/48 L 96 06/29/18 04:00 06/29/18 10:01 06/29/18 10:01 06/29/18 10:01 06/29/18 10:01 Intake and Output: 06/29/18 06/29/18 11:59 23:59 Intake Total 1138 Output Total 955 Balance 183 - Medications Medications: Current Medications Albuterol/Ipratropium (Duoneb 3 Mg/0.5 Mg (3 Ml) Ud) 3 ml INH RQ6 [facility] Last Admin: 06/29/18 07:35 Dose: 3 ml Clotrimazole (Lotrimin 1%) 0 gm TOP BID [facility] Last Admin: 06/29/18 09:43 Dose: 1 appl Emollient Ointment (Vaseline Oint) 30 gm TOP Q6H PRN PRN Reason: Dry skin Last Admin: 06/26/18 10:26 Dose: 30 gm Gabapentin (Neurontin) 300 mg PO BID [facility] Last Admin: 06/29/18 09:44 Dose: 300 mg Guaifenesin (Mucinex La) 600 mg PO Q12H [facility] Last Admin: 06/29/18 06:45 Dose: 600 mg Hydrocortisone Sodium Succinate (Solu-Cortef) 50 mg IV DAILY [facility] Metronidazole (Flagyl) 500 mg in 100 mls @ 100 mls/hr IVPB Q8H [facility]; Protocol Last Admin: 06/29/18 10:33 Dose: 100 mls/hr Ciprofloxacin (Cipro 400mg/200ml Dsw) 400 mg in 200 mls @ 133 mls/hr IVPB Q12H [facility]; Protocol Last Admin: 06/29/18 05:30 Dose: 133 mls/hr Linezolid (Zyvox 600mg/300ml D5w) 600 mg in 300 mls @ 200 mls/hr IVPB Q12H [facility]; Protocol Last Admin: 06/29/18 01:00 Dose: 200 mls/hr Multivitamins/Vitamin C 10 ml/Chromium/Copper/Manganese/Zinc 1 ml/ Amino Acids 1,011 mls @ 42 mls/hr IV .Q24H ONE Stop: 06/29/18 17:59 Last Admin: 06/28/18 19:16 Dose: 42 mls/hr Multivitamins/Vitamin C 10 ml/Chromium/Copper/Manganese/Zinc 1 ml/ Amino Acids 1,011 mls @ 42 mls/hr IV .Q24H ONE Stop: 06/30/18 17:59 Lactic Acid (Lac-Hydrin 12% Lotion (225 G)) 1 gm EXT BID [facility] Last Admin: 06/29/18 10:32 Dose: 1 gm Ondansetron HCl (Zofran Inj) 4 mg IVP Q6 PRN PRN Reason: Nausea/Vomiting Last Admin: 06/22/18 23:01 Dose: 4 mg Pantoprazole Sodium (Protonix Ec Tab) 40 mg PO DAILY [facility] Last Admin: 06/29/18 10:57 Dose: Not Given Tamsulosin HCl (Flomax) 0.4 mg PO DAILY [facility] Last Admin: 06/29/18 09:43 Dose: 0.4 mg - Labs Labs: 06/29/18 06:26 06/29/18 06:26 PT 13.5 SECONDS (9.7-12.2) H 06/21/18 10:43 INR 1.2 06/21/18 10:43 APTT 29 SECONDS (21-34) 06/21/18 10:43
--- NOTE | 2018-06-29 14:36 | CP.PCM.PN ---
Subjective - Date & Time of Evaluation Date of Evaluation: 06/29/18 Time of Evaluation: 14:36 - Subjective Subjective: afebrile,AAO +VE NGT -OUTPUT -700CC BILIARY DRAINAGE STATES PASSING FLATUS/BM DENIES ABDOMINAL PAIN ROS. HEENT : N. Resp : No cough, wheezing ,pleuritic CP ,or hemoptysis Cardio : No anginal CP, PND, orthopnea, palpitation GI : No abd.pain, n/v ,diarrhea or GI bleeding . 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 Musculoskel : No joint swelling , Derm rash all over the body Psych : Normal affect. Ext : No swelling ,calf pain PE. Pt. is in no distress.+VE NGT DRAINAGE V.S As noted in the chart Head ,ear nose,throat and eyes : Normal.+VE NGT Neck : Supple with normal carotids. Lungs: DECREASED BREATH SOUNDS AT THE BASES, FEW RHONCHI RIGHT-SIDED. Heart : S1 & S2 normal with S4. No murmur. Abd : Soft non tender with normal bowel sounds. Neuro : Moves all ext. with no localized deficit. Ext : No edema with intact pulses.Non tender calves Derm : Generalized erythema with exfoliation improving LABS/RADIOLOGY: WBC 22.6 H/H 7.7 RENAL FUNCTION IMPROVED Repeat CAT scan of the abdomen shows still small bowel obstruction with some thickening of the small bowel indicating previous incarceration. CT ABDOMEN/PELVIS WITH ORAL CONTRAST 06/23/19 -HIGH GRADE SBO/ WITH INCARCERATED LEFT INGUINAL HERNIA . sputum culture +ve E. COLI -PANSENSITIVE Objective - Vital Signs/Intake and Output Vital Signs (last 24 hours): Temp Pulse Resp BP Pulse Ox 98.5 F 84 18 119/48 L 96 06/29/18 04:00 06/29/18 10:01 06/29/18 10:01 06/29/18 10:01 06/29/18 10:01 Intake and Output: 06/29/18 06/29/18 06:59 18:59 Intake Total 1504 144 Output Total 1202 Balance 302 144 - Medications Medications: Current Medications Albuterol/Ipratropium (Duoneb 3 Mg/0.5 Mg (3 Ml) Ud) 3 ml INH RQ6 [facility] Last Admin: 06/29/18 07:35 Dose: 3 ml Clotrimazole (Lotrimin 1%) 0 gm TOP BID [facility] Last Admin: 06/29/18 09:43 Dose: 1 appl Emollient Ointment (Vaseline Oint) 30 gm TOP Q6H PRN PRN Reason: Dry skin Last Admin: 06/26/18 10:26 Dose: 30 gm Gabapentin (Neurontin) 300 mg PO BID [facility] Last Admin: 06/29/18 09:44 Dose: 300 mg Guaifenesin (Mucinex La) 600 mg PO Q12H [facility] Last Admin: 06/29/18 06:45 Dose: 600 mg Hydrocortisone Sodium Succinate (Solu-Cortef) 50 mg IV DAILY [facility] Metronidazole (Flagyl) 500 mg in 100 mls @ 100 mls/hr IVPB Q8H [facility]; Protocol Last Admin: 06/29/18 10:33 Dose: 100 mls/hr Ciprofloxacin (Cipro 400mg/200ml Dsw) 400 mg in 200 mls @ 133 mls/hr IVPB Q12H [facility]; Protocol Last Admin: 06/29/18 05:30 Dose: 133 mls/hr Linezolid (Zyvox 600mg/300ml D5w) 600 mg in 300 mls @ 200 mls/hr IVPB Q12H [facility]; Protocol Last Admin: 06/29/18 14:25 Dose: 200 mls/hr Multivitamins/Vitamin C 10 ml/Chromium/Copper/Manganese/Zinc 1 ml/ Amino Acids 1,011 mls @ 42 mls/hr IV .Q24H ONE Stop: 06/29/18 17:59 Last Admin: 06/28/18 19:16 Dose: 42 mls/hr Multivitamins/Vitamin C 10 ml/Chromium/Copper/Manganese/Zinc 1 ml/ Amino Acids 1,011 mls @ 42 mls/hr IV .Q24H ONE Stop: 06/30/18 17:59 Lactic Acid (Lac-Hydrin 12% Lotion (225 G)) 1 gm EXT BID [facility] Last Admin: 06/29/18 10:32 Dose: 1 gm Ondansetron HCl (Zofran Inj) 4 mg IVP Q6 PRN PRN Reason: Nausea/Vomiting Last Admin: 06/22/18 23:01 Dose: 4 mg Pantoprazole Sodium (Protonix Ec Tab) 40 mg PO DAILY [facility] Last Admin: 06/29/18 10:57 Dose: Not Given Tamsulosin HCl (Flomax) 0.4 mg PO DAILY [facility] Last Admin: 06/29/18 09:43 Dose: 0.4 mg - Labs Labs: 06/29/18 06:26 06/29/18 06:26 PT 13.5 SECONDS (9.7-12.2) H 06/21/18 10:43 INR 1.2 06/21/18 10:43 APTT 29 SECONDS (21-34) 06/21/18 10:43 Assessment and Plan (1) SBO (small bowel obstruction) Status: Acute (2) Incarcerated left inguinal hernia Status: Acute (3) Pneumonia Status: Acute (4) Leukocytosis Status: Acute (5) Generalized rash Status: Acute (6) APL (acute promyelocytic leukemia) Status: Acute - Assessment and Plan (Free Text) Plan: PLAN ON IV CIPRO 400MG IVPB Q12 HRLY 06/25/18 CONTINUE IV FLAGYL 500MG IV Q 8HRLY 06/23/18 ON IV ZYVOX 600MG IVPB TO COVER FOR STREP/STAPH ( GI/SSTI JACKELYN )06/26/18. WATCH H/H. TAPER OFF SEROIDS POSSIBLE. SURGERY F/U / LT INGUINAL HERNIA SUPPORT. 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
[2018-06-29] MEDS ORDERED: PPN #7 IV ONE (18:00)
[2018-06-30] MEDS: Albuterol-Ipratrop 3 mg / 0.5 (3 ml) UD INH SCH ×4 (01:17→19:56)
[2018-06-30] MEDS: metroNIDAZOLE IV 500 mg/100 ml 500 MG/100 ML BAG IVPB SCH ×3 (02:00→18:00)
[2018-06-30] MEDS: Ciprofloxacin 400mg/200ml D5W 400 MG/200 ML BAG IVPB SCH ×2 (05:00→17:24)
[2018-06-30 06:16] LABS: BASO % 0.2 % (0.0-2.0); EOS # 0.2 K/uL (0.0-0.7); EOS % 0.8 % (0.0-4.0); HEMOGLOBIN 7.8 g/dL (12.0-18.0); LYMPH # 6.6 K/uL (1.0-4.3); LYMPH % 29.9 % (20.0-40.0); MEAN CELL VOLUME 83.1 fL (80.0-94.0); MEAN CORPUSCULAR HEMOGLOBIN 26.1 pg (27.0-31.0); MEAN CORPUSCULAR HGB CONC 31.5 g/dL (33.0-37.0); MEAN PLATELET VOLUME 8.9 fL (7.2-11.7); MONO % 4.3 % (0.0-10.0); NEUT # 14.3 K/uL (1.8-7.0); NEUT % 64.8 % (50.0-75.0); NRBC % 0.3 % (0.0-2.0); RBC 2.97 Mil/uL (4.40-5.90); WHITE BLOOD COUNT 22.1 K/uL (4.8-10.8)
[2018-06-30] MEDS: guaiFENesin 600 mg ER Tab PO SCH ×2 (06:50→18:00)
[2018-06-30 06:53] LABS: ALB/GLOB RATIO 0.8 (1.0-2.1); ALBUMIN 2.5 g/dL (3.5-5.0); ALT/SGPT 23 U/L (21-72); AST/SGOT 17 U/L (17-59); BLOOD UREA NITROGEN 9 mg/dL (9-20); CALCIUM 9.3 mg/dl (8.6-10.4); GFR NON-AFRICAN AMERICAN > 60
--- NOTE | 2018-06-30 08:34 | CP.CCUPN ---
<Kevin Guadalupe - Last Filed: 06/30/18 10:14> CCU Subjective - Physician Review Subjective (Free Text): PGY-1 Critical Care Progress Note for Dr. Booth's service Patient seen and examined at bedside. NG tube dc'ed yesterday. Trial of solid foods will be attempted today. Patient denies fevers, chills, chest pain, sob, n/v, constipation or diarrhea, and dysuria. 06/30/18 08:17 CCU Objective - Vital Signs / Intake & Output Vital Signs (Last 4 hours): Vital Signs Pulse Resp BP Pulse Ox 06/30/18 07:00 71 13 127/67 99 06/30/18 06:22 69 14 113/71 100 06/30/18 05:35 76 12 117/62 100 Intake and Output (Last 8hrs): Intake & Output 06/29/18 06/30/18 06/30/18 22:59 06:59 14:59 Intake Total 836 836 242 Output Total 1050 300 Balance -214 536 242 Weight 150 lb 7 oz Intake: Intake, IV Amount 836 836 142 Right Distal Port 336 336 42 Internal Jugular Right Proximal Port 500 500 100 Internal Jugular Oral 100 Output: Gastric Amount 650 Right Nares 650 Urine 400 300 Urine, Voided 400 300 Other: # Voids Urine, Voided 1 1 # Bowel Movements 0 - Physical Exam Head: Positive for: Atraumatic, Normocephalic Pupils: Positive for: PERRL Mouth: Positive for: Dry Nose (Internal): Positive for: Other (NG tube in place) Neck: Positive for: Other (TLC in left IJ) Respiratory/Chest: Positive for: Clear to Auscultation, Good Air Exchange. Negative for: Respiratory Distress, Accessory Muscle Use Cardiovascular: Positive for: Regular Rate and Rhythm, Normal S1, S2. Negative for: Murmurs Abdomen: Positive for: Normal Bowel Sounds. Negative for: Tenderness, Distention, Peritoneal Signs Upper Extremity: Positive for: Normal Inspection, NORMAL PULSES. Negative for: Cyanosis, Edema Lower Extremity: Positive for: Normal Inspection, NORMAL PULSES. Negative for: Edema, CALF TENDERNESS Neurological: Positive for: GCS=15 Skin: Positive for: Warm, Dry, Other (chronic skin peeling and blistering). Negative for: Rashes, Normal Color Psychiatric: Positive for: Alert, Oriented x 3 - Medications Active Medications: Active Medications Generic Name Dose Route Start Last Admin Trade Name Freq PRN Reason Stop Dose Admin Albuterol/Ipratropium 3 ml 06/21/18 20:00 06/30/18 07:30 Duoneb 3 Mg/0.5 Mg (3 Ml) Ud INH 3 ml RQ6 [facility]A Administration Clotrimazole 0 gm 06/21/18 18:00 06/29/18 18:24 Lotrimin 1% TOP 1 appl BID LAURA Administration Emollient Ointment 30 gm 06/26/18 09:26 06/26/18 10:26 Vaseline Oint TOP 30 gm Q6H PRN Administration Dry skin Gabapentin 300 mg 06/21/18 18:15 06/29/18 18:21 Neurontin PO 300 mg BID [facility]A Administration Guaifenesin 600 mg 06/22/18 19:00 06/30/18 06:50 Mucinex La PO 600 mg Q12H [facility] Administration Heparin Sodium (Porcine) 5,000 units 06/29/18 22:00 06/30/18 05:40 Heparin SC 5,000 units Q8 [facility] Administration Hydrocortisone Sodium Succinate 50 mg 06/30/18 10:00 Solu-Cortef IV DAILY LAURA Metronidazole 500 mg in 100 mls @ 100 mls/hr 06/23/18 19:00 06/30/18 02:00 Flagyl IVPB 100 mls/hr Q8H [facility] Administration Protocol Ciprofloxacin 400 mg in 200 mls @ 133 mls/hr 06/25/18 06:00 06/30/18 05:00 Cipro 400mg/200ml Dsw IVPB 133 mls/hr Q12H [facility] Administration Protocol Linezolid 600 mg in 300 mls @ 200 mls/hr 06/26/18 13:00 06/30/18 00:00 Zyvox 600mg/300ml D5w IVPB 200 mls/hr Q12H [facility] Administration Protocol Multivitamins/Vitamin C 10 ml/ 1,011 mls @ 42 mls/hr 06/29/18 18:00 06/29/18 18:23 Chromium/Copper/Manganese/ IV 06/30/18 17:59 42 mls/hr Zinc 1 ml/ Amino Acids .Q24H ONE Administration Potassium Chloride 20 meq in 100 mls @ 50 mls/hr 06/30/18 08:15 06/30/18 07:50 Potassium Chloride 20 Meq/100 Ml IVPB 06/30/18 10:14 50 mls/hr ONCE ONE Administration Lactic Acid 1 gm 06/28/18 10:00 06/29/18 18:24 Lac-Hydrin 12% Lotion (225 G) EXT 1 gm BID LA[facility]A Administration Ondansetron HCl 4 mg 06/22/18 22:10 06/22/18 23:01 Zofran Inj IVP 4 mg Q6 PRN Administration Nausea/Vomiting Pantoprazole Sodium 40 mg 06/29/18 11:00 06/29/18 10:57 Protonix Ec Tab PO Not Given DAILY LAURA Tamsulosin HCl 0.4 mg 06/24/18 10:00 06/29/18 09:43 Flomax PO 0.4 mg DAILY LA[facility]A Administration - Patient Studies Lab Studies: Microbiology Studies 06/26/18 14:45 Blood Culture - Preliminary Blood-Thru Central Line NO GROWTH AFTER 3 DAYS 06/26/18 14:15 Blood Culture - Preliminary Blood-Thru Central Line NO GROWTH AFTER 3 DAYS Lab Studies 06/30/18 06/30/18 Range/Units 06:06 06:06 WBC 22.1 H (4.8-10.8) K/uL RBC 2.97 L (4.40-5.90) Mil/uL Hgb 7.8 L (12.0-18.0) g/dL Hct 24.6 L (35.0-51.0) % MCV 83.1 (80.0-94.0) fL MCH 26.1 L (27.0-31.0) pg MCHC 31.5 L (33.0-37.0) g/dL RDW 15.0 H (11.5-14.5) % Plt Count 423 H (130-400) K/uL MPV 8.9 (7.2-11.7) fL Neut % (Auto) 64.8 (50.0-75.0) % Lymph % (Auto) 29.9 (20.0-40.0) % Graves % (Auto) 4.3 (0.0-10.0) % Eos % (Auto) 0.8 (0.0-4.0) % Baso % (Auto) 0.2 (0.0-2.0) % Neut # (Auto) 14.3 H (1.8-7.0) K/uL Lymph # (Auto) 6.6 H (1.0-4.3) K/uL Graves # (Auto) 1.0 H (0.0-0.8) K/uL Eos # (Auto) 0.2 (0.0-0.7) K/uL Baso # (Auto) 0.0 (0.0-0.2) K/uL Sodium 132 (132-148) mmol/L Potassium 3.5 L (3.6-5.2) mmol/L Chloride 97 L (98-107) mmol/L Carbon Dioxide 30 (22-30) mmol/L Anion Gap 9 L (10-20) BUN 9 (9-20) mg/dL Creatinine 0.5 L (0.8-1.5) mg/dL Est GFR ( Amer) > 60 Est GFR (Non-Af Amer) > 60 Random Glucose 115 H D (75-110) mg/dL Calcium 9.3 (8.6-10.4) mg/dl Phosphorus 2.7 (2.5-4.5) mg/dL Magnesium 1.7 (1.6-2.3) mg/dL Total Bilirubin 0.3 (0.2-1.3) mg/dL AST 17 (17-59) U/L ALT 23 (21-72) U/L Alkaline Phosphatase 69 (38-126) U/L Total Protein 5.4 L (6.3-8.3) g/dL Albumin 2.5 L (3.5-5.0) g/dL Globulin 2.9 (2.2-3.9) gm/dL Albumin/Globulin Ratio 0.8 L (1.0-2.1) Laboratory Results - last 24 hr 06/30/18 06/30/18 06:06 06:06 WBC 22.1 H RBC 2.97 L Hgb 7.8 L Hct 24.6 L MCV 83.1 MCH 26.1 L MCHC 31.5 L RDW 15.0 H Plt Count 423 H MPV 8.9 Neut % (Auto) 64.8 Lymph % (Auto) 29.9 Graves % (Auto) 4.3 Eos % (Auto) 0.8 Baso % (Auto) 0.2 Neut # (Auto) 14.3 H Lymph # (Auto) 6.6 H Graves # (Auto) 1.0 H Eos # (Auto) 0.2 Baso # (Auto) 0.0 Sodium 132 Potassium 3.5 L Chloride 97 L Carbon Dioxide 30 Anion Gap 9 L BUN 9 Creatinine 0.5 L Est GFR ( Amer) > 60 Est GFR (Non-Af Amer) > 60 Random Glucose 115 H D Calcium 9.3 Phosphorus 2.7 Magnesium 1.7 Total Bilirubin 0.3 AST 17 ALT 23 Alkaline Phosphatase 69 Total Protein 5.4 L Albumin 2.5 L Globulin 2.9 Albumin/Globulin Ratio 0.8 L Critical Care Progress Note - Nutrition Nutrition: Nutrition Category Date Time Status Heart Healthy Diet [DIET] Diets 06/30/18 Breakfast Active Assessment/Plan - Assessment and Plan (Free Text) Assessment: 73 yo male with PMH of HTN and APL admitted to ICU for sob 2/2 to PNA likely inciting factor aspiration pna 2/2 small bowel obstruction due to abdominal strangulated hernia. Neuro AAOX3 Pulm Duoneb; On aerosol; maintain spo2>90% Cxray shows possible PNA- Ciprofloxacin PNA studies negative; Procal on admission- 133.1 ; Repeat Procal 0.42 Mucinex CV Remains normotensive GI Liquid diet-ADAT; PPN feeds SBO with inguinal hernia- repeat CT abd- persistent sbo w/ decreased amount of small bowel protruding into left inguinal hernia- patient passing gas and having bowel movements tolerating foods without n/v Heme Hx of APL- pending flow cytometry - elevated white count VSS stable Derm Chronic whole body dry scaly skin- Vaseline ointment 5gm q6h; Clotrimazole; Etiology likely related to patient APL (has oncology appointment on July 11) Renal VIOLETTE resolved only Solucortef decreased Repleted potassium- Kcl IVPB Tamsulosin Banana bag Repeat CMP in AM ID Flagyl/Linezolid for SBO; + E coli sens to Ciprofloxacin Elevated WBC- could be APL vs steroid induced vs infection (less likely) DVT ppx: Heparin Nasuea: Zofran GI ppx: Protonix Disposition: Patient is stable for downgrade as patient NG tube was dc'ed and patient tolerating whole foods. PGY-1 Kevin Guadalupe Medical Management d/w Dr. Booth <Antoni Booth S - Last Filed: 06/30/18 16:22> CCU Objective - Vital Signs / Intake & Output Vital Signs (Last 4 hours): Vital Signs Pulse Resp BP Pulse Ox 06/30/18 15:01 71 11 L 130/69 96 06/30/18 15:00 70 11 L 97 06/30/18 14:00 74 12 118/67 93 L 06/30/18 13:00 70 12 122/72 97 06/30/18 12:59 71 13 96 Intake and Output (Last 8hrs): Intake & Output 06/30/18 06/30/18 06/30/18 06:59 14:59 22:59 Intake Total 836 1330 Output Total 300 200 0 Balance 536 1130 0 Weight 150 lb 7 oz Intake: Intake, IV Amount 836 810 Right Distal Port 336 210 Internal Jugular Right Proximal Port 500 600 Internal Jugular Oral 520 Output: Urine 300 200 0 Urine, Voided 300 200 0 Other: # Voids Urine, Voided 1 1 - Medications Active Medications: Active Medications Generic Name Dose Route Start Last Admin Trade Name Freq PRN Reason Stop Dose Admin Albuterol/Ipratropium 3 ml 06/21/18 20:00 06/30/18 14:22 Duoneb 3 Mg/0.5 Mg (3 Ml) Ud INH 3 ml RQ6 [facility] Administration Clotrimazole 0 gm 06/21/18 18:00 06/30/18 10:00 Lotrimin 1% TOP 1 appl BID [facility]URA Administration Emollient Ointment 30 gm 06/26/18 09:26 06/26/18 10:26 Vaseline Oint TOP 30 gm Q6H PRN Administration Dry skin Gabapentin 300 mg 06/21/18 18:15 06/30/18 09:59 Neurontin PO 300 mg BID [facility] Administration Guaifenesin 600 mg 06/22/18 19:00 06/30/18 06:50 Mucinex La PO 600 mg Q12H [facility] Administration Heparin Sodium (Porcine) 5,000 units 06/29/18 22:00 06/30/18 13:34 Heparin SC 5,000 units Q8 [facility] Administration Hydrocortisone Sodium Succinate 50 mg 06/30/18 10:00 06/30/18 09:58 Solu-Cortef IV 50 mg DAILY [facility] Administration Metronidazole 500 mg in 100 mls @ 100 mls/hr 06/23/18 19:00 06/30/18 09:59 Flagyl IVPB 100 mls/hr Q8H [facility] Administration Protocol Ciprofloxacin 400 mg in 200 mls @ 133 mls/hr 06/25/18 06:00 06/30/18 05:00 Cipro 400mg/200ml Dsw IVPB 133 mls/hr Q12H [facility] Administration Protocol Linezolid 600 mg in 300 mls @ 200 mls/hr 06/26/18 13:00 06/30/18 13:25 Zyvox 600mg/300ml D5w IVPB 200 mls/hr Q12H [facility] Administration Protocol Lactic Acid 1 gm 06/28/18 10:00 06/30/18 09:58 Lac-Hydrin 12% Lotion (225 G) EXT 1 gm BID [facility]A Administration Ondansetron HCl 4 mg 06/22/18 22:10 06/22/18 23:01 Zofran Inj IVP 4 mg Q6 PRN Administration Nausea/Vomiting Pantoprazole Sodium 40 mg 06/29/18 11:00 06/30/18 09:59 Protonix Ec Tab PO 40 mg DAILY [facility] Administration Tamsulosin HCl 0.4 mg 06/24/18 10:00 06/30/18 09:59 Flomax PO 0.4 mg DAILY [facility] Administration - Patient Studies Lab Studies: Microbiology Studies 06/26/18 14:45 Blood Culture - Preliminary Blood-Thru Central Line NO GROWTH AFTER 4 DAYS 06/26/18 14:15 Blood Culture - Preliminary Blood-Thru Central Line NO GROWTH AFTER 4 DAYS Lab Studies 06/30/18 06/30/18 Range/Units 06:06 06:06 WBC 22.1 H (4.8-10.8) K/uL RBC 2.97 L (4.40-5.90) Mil/uL Hgb 7.8 L (12.0-18.0) g/dL Hct 24.6 L (35.0-51.0) % MCV 83.1 (80.0-94.0) fL MCH 26.1 L (27.0-31.0) pg MCHC 31.5 L (33.0-37.0) g/dL RDW 15.0 H (11.5-14.5) % Plt Count 423 H (130-400) K/uL MPV 8.9 (7.2-11.7) fL Neut % (Auto) 64.8 (50.0-75.0) % Lymph % (Auto) 29.9 (20.0-40.0) % Graves % (Auto) 4.3 (0.0-10.0) % Eos % (Auto) 0.8 (0.0-4.0) % Baso % (Auto) 0.2 (0.0-2.0) % Neut # (Auto) 14.3 H (1.8-7.0) K/uL Lymph # (Auto) 6.6 H (1.0-4.3) K/uL Graves # (Auto) 1.0 H (0.0-0.8) K/uL Eos # (Auto) 0.2 (0.0-0.7) K/uL Baso # (Auto) 0.0 (0.0-0.2) K/uL Sodium 132 (132-148) mmol/L Potassium 3.5 L (3.6-5.2) mmol/L Chloride 97 L (98-107) mmol/L Carbon Dioxide 30 (22-30) mmol/L Anion Gap 9 L (10-20) BUN 9 (9-20) mg/dL Creatinine 0.5 L (0.8-1.5) mg/dL Est GFR ( Amer) > 60 Est GFR (Non-Af Amer) > 60 Random Glucose 115 H D (75-110) mg/dL Calcium 9.3 (8.6-10.4) mg/dl Phosphorus 2.7 (2.5-4.5) mg/dL Magnesium 1.7 (1.6-2.3) mg/dL Total Bilirubin 0.3 (0.2-1.3) mg/dL AST 17 (17-59) U/L ALT 23 (21-72) U/L Alkaline Phosphatase 69 (38-126) U/L Total Protein 5.4 L (6.3-8.3) g/dL Albumin 2.5 L (3.5-5.0) g/dL Globulin 2.9 (2.2-3.9) gm/dL Albumin/Globulin Ratio 0.8 L (1.0-2.1) Laboratory Results - last 24 hr 06/30/18 06/30/18 06:06 06:06 WBC 22.1 H RBC 2.97 L Hgb 7.8 L Hct 24.6 L MCV 83.1 MCH 26.1 L MCHC 31.5 L RDW 15.0 H Plt Count 423 H MPV 8.9 Neut % (Auto) 64.8 Lymph % (Auto) 29.9 Graves % (Auto) 4.3 Eos % (Auto) 0.8 Baso % (Auto) 0.2 Neut # (Auto) 14.3 H Lymph # (Auto) 6.6 H Graves # (Auto) 1.0 H Eos # (Auto) 0.2 Baso # (Auto) 0.0 Sodium 132 Potassium 3.5 L Chloride 97 L Carbon Dioxide 30 Anion Gap 9 L BUN 9 Creatinine 0.5 L Est GFR ( Amer) > 60 Est GFR (Non-Af Amer) > 60 Random Glucose 115 H D Calcium 9.3 Phosphorus 2.7 Magnesium 1.7 Total Bilirubin 0.3 AST 17 ALT 23 Alkaline Phosphatase 69 Total Protein 5.4 L Albumin 2.5 L Globulin 2.9 Albumin/Globulin Ratio 0.8 L Critical Care Progress Note - Nutrition Nutrition: Nutrition Category Date Time Status Heart Healthy Diet [DIET] Diets 06/30/18 Breakfast Active Attending/Attestation - Attestation I have personally seen and examined this patient.: Yes I have fully participated in the care of the patient.: Yes I have reviewed all pertinent clinical information: Yes Notes (Text): 06/30/18 16:22 Patient seen and examined Stable for transfer to floor Continue present treatment
[2018-06-30] MEDS: Ammonium Lactate 12% Lotion (225 g) EXT SCH ×2 (09:58→17:25)
[2018-06-30] MEDS: Pantoprazole 40 mg EC Tab PO SCH (09:59)
[2018-06-30] MEDS: Clotrimazole 1% Cream(30 gm) TOP SCH ×2 (10:00→17:25)
--- NOTE | 2018-06-30 13:22 | CP.PCM.PN ---
Subjective - Date & Time of Evaluation Date of Evaluation: 06/30/18 Time of Evaluation: 12:00 - Subjective Subjective: Has some stomach pain. Flow cytometery results reviewed - myeloid findings likely reactive. Tcell population noted and cytogenetics and PCR for TCR gene rearrangement ordered and pending. Objective - Vital Signs/Intake and Output Vital Signs (last 24 hours): Temp Pulse Resp BP Pulse Ox 97.0 F L 71 13 122/72 96 06/30/18 08:00 06/30/18 12:59 06/30/18 12:59 06/30/18 13:00 06/30/18 12:59 Intake and Output: 06/30/18 06/30/18 06:59 18:59 Intake Total 1171 826 Output Total 300 Balance 871 826 - Medications Medications: Current Medications Albuterol/Ipratropium (Duoneb 3 Mg/0.5 Mg (3 Ml) Ud) 3 ml INH RQ6 [facility] Last Admin: 06/30/18 07:30 Dose: 3 ml Clotrimazole (Lotrimin 1%) 0 gm TOP BID [facility] Last Admin: 06/30/18 10:00 Dose: 1 appl Emollient Ointment (Vaseline Oint) 30 gm TOP Q6H PRN PRN Reason: Dry skin Last Admin: 06/26/18 10:26 Dose: 30 gm Gabapentin (Neurontin) 300 mg PO BID [facility] Last Admin: 06/30/18 09:59 Dose: 300 mg Guaifenesin (Mucinex La) 600 mg PO Q12H [facility] Last Admin: 06/30/18 06:50 Dose: 600 mg Heparin Sodium (Porcine) (Heparin) 5,000 units SC Q8 [facility] Last Admin: 06/30/18 05:40 Dose: 5,000 units Hydrocortisone Sodium Succinate (Solu-Cortef) 50 mg IV DAILY [facility] Last Admin: 06/30/18 09:58 Dose: 50 mg Metronidazole (Flagyl) 500 mg in 100 mls @ 100 mls/hr IVPB Q8H [facility]; Protocol Last Admin: 06/30/18 09:59 Dose: 100 mls/hr Ciprofloxacin (Cipro 400mg/200ml Dsw) 400 mg in 200 mls @ 133 mls/hr IVPB Q12H [facility]; Protocol Last Admin: 06/30/18 05:00 Dose: 133 mls/hr Linezolid (Zyvox 600mg/300ml D5w) 600 mg in 300 mls @ 200 mls/hr IVPB Q12H [facility]; Protocol Last Admin: 06/30/18 00:00 Dose: 200 mls/hr Lactic Acid (Lac-Hydrin 12% Lotion (225 G)) 1 gm EXT BID [facility] Last Admin: 06/30/18 09:58 Dose: 1 gm Ondansetron HCl (Zofran Inj) 4 mg IVP Q6 PRN PRN Reason: Nausea/Vomiting Last Admin: 06/22/18 23:01 Dose: 4 mg Pantoprazole Sodium (Protonix Ec Tab) 40 mg PO DAILY [facility] Last Admin: 06/30/18 09:59 Dose: 40 mg Tamsulosin HCl (Flomax) 0.4 mg PO DAILY [facility] Last Admin: 06/30/18 09:59 Dose: 0.4 mg - Labs Labs: 06/30/18 06:06 06/30/18 06:06 PT 13.5 SECONDS (9.7-12.2) H 06/21/18 10:43 INR 1.2 06/21/18 10:43 APTT 29 SECONDS (21-34) 06/21/18 10:43 - Head Exam Head Exam: ATRAUMATIC - Eye Exam Eye Exam: Normal appearance - ENT Exam ENT Exam: Mucous Membranes Dry - Respiratory Exam Respiratory Exam: NORMAL BREATHING PATTERN - Cardiovascular Exam Cardiovascular Exam: +S1, +S2 - GI/Abdominal Exam GI & Abdominal Exam: Normal Bowel Sounds Assessment and Plan (1) Leukocytosis Assessment & Plan: reactive by flow cytometery Status: Acute (2) Anemia Assessment & Plan: chronic disease Status: Acute (3) APL (acute promyelocytic leukemia) Assessment & Plan: no evidence of recurrence by flow cytomtery Status: Acute
--- NOTE | 2018-06-30 13:22 | CP.PCM.PN ---
Subjective - Date & Time of Evaluation Date of Evaluation: 06/30/18 Time of Evaluation: 13:18 - Subjective Subjective: remains on PPN, eating now though VIOLETTE has resolved K still low rash about same Objective - Vital Signs/Intake and Output Vital Signs (last 24 hours): Temp Pulse Resp BP Pulse Ox 96.7 F L 71 13 122/72 96 06/30/18 12:00 06/30/18 12:59 06/30/18 12:59 06/30/18 13:00 06/30/18 12:59 Intake and Output: 06/30/18 06/30/18 06:59 18:59 Intake Total 1171 1030 Output Total 300 Balance 871 1030 - Medications Medications: Current Medications Albuterol/Ipratropium (Duoneb 3 Mg/0.5 Mg (3 Ml) Ud) 3 ml INH RQ6 [facility] Last Admin: 06/30/18 07:30 Dose: 3 ml Clotrimazole (Lotrimin 1%) 0 gm TOP BID [facility] Last Admin: 06/30/18 10:00 Dose: 1 appl Emollient Ointment (Vaseline Oint) 30 gm TOP Q6H PRN PRN Reason: Dry skin Last Admin: 06/26/18 10:26 Dose: 30 gm Gabapentin (Neurontin) 300 mg PO BID [facility] Last Admin: 06/30/18 09:59 Dose: 300 mg Guaifenesin (Mucinex La) 600 mg PO Q12H [facility] Last Admin: 06/30/18 06:50 Dose: 600 mg Heparin Sodium (Porcine) (Heparin) 5,000 units SC Q8 [facility] Last Admin: 06/30/18 05:40 Dose: 5,000 units Hydrocortisone Sodium Succinate (Solu-Cortef) 50 mg IV DAILY [facility] Last Admin: 06/30/18 09:58 Dose: 50 mg Metronidazole (Flagyl) 500 mg in 100 mls @ 100 mls/hr IVPB Q8H [facility]; Protocol Last Admin: 06/30/18 09:59 Dose: 100 mls/hr Ciprofloxacin (Cipro 400mg/200ml Dsw) 400 mg in 200 mls @ 133 mls/hr IVPB Q12H [facility]; Protocol Last Admin: 06/30/18 05:00 Dose: 133 mls/hr Linezolid (Zyvox 600mg/300ml D5w) 600 mg in 300 mls @ 200 mls/hr IVPB Q12H [facility]; Protocol Last Admin: 06/30/18 00:00 Dose: 200 mls/hr Lactic Acid (Lac-Hydrin 12% Lotion (225 G)) 1 gm EXT BID [facility] Last Admin: 06/30/18 09:58 Dose: 1 gm Ondansetron HCl (Zofran Inj) 4 mg IVP Q6 PRN PRN Reason: Nausea/Vomiting Last Admin: 06/22/18 23:01 Dose: 4 mg Pantoprazole Sodium (Protonix Ec Tab) 40 mg PO DAILY [facility] Last Admin: 06/30/18 09:59 Dose: 40 mg Tamsulosin HCl (Flomax) 0.4 mg PO DAILY [facility] Last Admin: 06/30/18 09:59 Dose: 0.4 mg - Labs Labs: 06/30/18 06:06 06/30/18 06:06 PT 13.5 SECONDS (9.7-12.2) H 06/21/18 10:43 INR 1.2 06/21/18 10:43 APTT 29 SECONDS (21-34) 06/21/18 10:43 - Constitutional Appears: In Acute Distress, Chronically Ill - Head Exam Head Exam: ATRAUMATIC, NORMAL INSPECTION - Eye Exam Eye Exam: EOMI, Normal appearance - Neck Exam Neck Exam: Normal Inspection. absent: Full ROM - Respiratory Exam Respiratory Exam: Clear to Ausculation Bilateral, NORMAL BREATHING PATTERN - Cardiovascular Exam Cardiovascular Exam: REGULAR RHYTHM, +S1 - GI/Abdominal Exam GI & Abdominal Exam: Soft. absent: Tenderness - Extremities Exam Extremities Exam: Normal Inspection. absent: Tenderness - Neurological Exam Neurological Exam: Awake, CN II-XII Intact - Skin Skin Exam: Dry, Warm Assessment and Plan (1) APL (acute promyelocytic leukemia) Status: Acute (2) Pneumonia Status: Acute (3) VIOLETTE (acute kidney injury) Status: Acute (4) Pneumonia Status: Acute (5) Mullins-Ildefonso disease Status: Acute - Assessment and Plan (Free Text) Plan: Replete K again consider stopping PPN as patient eating now
[2018-06-30] MEDS: Linezolid 600 mg in D5W 300 ml 600 MG/300 ML BAG IVPB SCH ×2 (13:25)
--- NOTE | 2018-06-30 14:20 | CP.PCM.PN ---
Subjective - Date & Time of Evaluation Date of Evaluation: 06/30/18 Time of Evaluation: 14:19 - Subjective Subjective: CHIEF COMPLAINTS TODAY : NGT IS OUT ON DIET RENAL ISUFF. HAS IMPROVED H/H LOW 7.7 ROS. HEENT : N. Resp : No cough, wheezing ,pleuritic CP ,or hemoptysis Cardio : No anginal CP, PND, orthopnea, palpitation GI : No abd.pain, n/v ,diarrhea or GI bleeding . 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 Musculoskel : No joint swelling , Derm rash all over the body Psych : Normal affect. Ext : No swelling ,calf pain PE. Pt. is alert awake in no distress. V.S As noted in the chart Head ,ear nose,throat and eyes : Normal. Neck : Supple with normal carotids. Lungs: Clear air entry. Heart : S1 & S2 normal with S4. No murmur. Abd : Soft non tender mild distention Neuro : Moves all ext. with no localized deficit. Ext : No edema with intact pulses.Non tender calves Derm : Generalized erythema with exfoliation LABS/RADIOLOGY ASSESSMENT/PLAN : CONT IV AB AND FLUIDS Objective - Vital Signs/Intake and Output Vital Signs (last 24 hours): Temp Pulse Resp BP Pulse Ox 96.7 F L 71 13 122/72 96 06/30/18 12:00 06/30/18 12:59 06/30/18 12:59 06/30/18 13:00 06/30/18 12:59 Intake and Output: 06/30/18 06/30/18 11:59 23:59 Intake Total 1704 320 Output Total 300 200 Balance 1404 120 - Medications Medications: Current Medications Albuterol/Ipratropium (Duoneb 3 Mg/0.5 Mg (3 Ml) Ud) 3 ml INH RQ6 [facility] Last Admin: 06/30/18 07:30 Dose: 3 ml Clotrimazole (Lotrimin 1%) 0 gm TOP BID [facility] Last Admin: 06/30/18 10:00 Dose: 1 appl Emollient Ointment (Vaseline Oint) 30 gm TOP Q6H PRN PRN Reason: Dry skin Last Admin: 06/26/18 10:26 Dose: 30 gm Gabapentin (Neurontin) 300 mg PO BID [facility] Last Admin: 06/30/18 09:59 Dose: 300 mg Guaifenesin (Mucinex La) 600 mg PO Q12H [facility] Last Admin: 06/30/18 06:50 Dose: 600 mg Heparin Sodium (Porcine) (Heparin) 5,000 units SC Q8 [facility] Last Admin: 06/30/18 13:34 Dose: 5,000 units Hydrocortisone Sodium Succinate (Solu-Cortef) 50 mg IV DAILY [facility] Last Admin: 06/30/18 09:58 Dose: 50 mg Metronidazole (Flagyl) 500 mg in 100 mls @ 100 mls/hr IVPB Q8H [facility]; Protocol Last Admin: 06/30/18 09:59 Dose: 100 mls/hr Ciprofloxacin (Cipro 400mg/200ml Dsw) 400 mg in 200 mls @ 133 mls/hr IVPB Q12H [facility]; Protocol Last Admin: 06/30/18 05:00 Dose: 133 mls/hr Linezolid (Zyvox 600mg/300ml D5w) 600 mg in 300 mls @ 200 mls/hr IVPB Q12H [facility]; Protocol Last Admin: 06/30/18 13:25 Dose: 200 mls/hr Lactic Acid (Lac-Hydrin 12% Lotion (225 G)) 1 gm EXT BID [facility] Last Admin: 06/30/18 09:58 Dose: 1 gm Ondansetron HCl (Zofran Inj) 4 mg IVP Q6 PRN PRN Reason: Nausea/Vomiting Last Admin: 06/22/18 23:01 Dose: 4 mg Pantoprazole Sodium (Protonix Ec Tab) 40 mg PO DAILY [facility] Last Admin: 06/30/18 09:59 Dose: 40 mg Tamsulosin HCl (Flomax) 0.4 mg PO DAILY [facility] Last Admin: 06/30/18 09:59 Dose: 0.4 mg - Labs Labs: 06/30/18 06:06 06/30/18 06:06 PT 13.5 SECONDS (9.7-12.2) H 06/21/18 10:43 INR 1.2 06/21/18 10:43 APTT 29 SECONDS (21-34) 06/21/18 10:43
--- NOTE | 2018-06-30 17:10 | CARD ---
APPROVED REPORT Date of service: 06/22/2018 EKG Measurement Heart [id number] <Conclusion> Sinus tachycardia Otherwise normal ECG
[2018-06-30] MEDS ORDERED: Aluminum Hydroxide/Magnesium Hydroxide Susp (30 mL) PO PRN (17:54)
--- NOTE | 2018-06-30 18:54 | CP.PCM.PN ---
Subjective - Date & Time of Evaluation Date of Evaluation: 06/30/18 Time of Evaluation: 18:54 - Subjective Subjective: afebrile,AAO NGT DCed. c/o mild abdominal discomfor trial of solid foods ROS. HEENT : N. Resp : No cough, wheezing ,pleuritic CP ,or hemoptysis Cardio : No anginal CP, PND, orthopnea, palpitation GI : No abd.pain, n/v ,diarrhea or GI bleeding . FLEET MECHANIC : No headache, vertigo, focal deficit. Musculoskel : No joint swelling , Derm rash all over the body Psych : Normal affect. Ext : No swelling ,calf pain PE. Pt. is in no distress.+VE NGT DRAINAGE V.S As noted in the chart Head ,ear nose,throat and eyes : Normal.+VE NGT Neck : Supple with normal carotids. Lungs: fair air entry Heart : S1 & S2 normal with S4. No murmur. Abd : Soft mild tenderness epigastric and mid abdomen with normal bowel sounds. Neuro : Moves all ext. with no localized deficit. Ext : No edema with intact pulses.Non tender calves Derm : Generalized erythema with exfoliation improving LABS/RADIOLOGY: WBC 22.1 H/H 7.8 CXR; 06/27/18 MILD VENOUS CONGESTION. SMALL LEFT PLEURAL EFFUSION. RENAL FUNCTION IMPROVED Repeat CAT scan of the abdomen shows still small bowel obstruction with some thickening of the small bowel indicating previous incarceration. Objective - Vital Signs/Intake and Output Vital Signs (last 24 hours): Temp Pulse Resp BP Pulse Ox 96.7 F L 77 15 115/70 97 06/30/18 12:00 06/30/18 17:01 06/30/18 17:01 06/30/18 17:01 06/30/18 17:01 Intake and Output: 06/30/18 06/30/18 06:59 18:59 Intake Total 1171 1450 Output Total 300 200 Balance 871 1250 - Medications Medications: Current Medications Al Hydrox/Mg Hydrox/Simethicone (Maalox 30 Ml) 30 ml PO Q4 PRN PRN Reason: Indigestion / Heartburn Last Admin: 06/30/18 18:00 Dose: 30 ml Albuterol/Ipratropium (Duoneb 3 Mg/0.5 Mg (3 Ml) Ud) 3 ml INH RQ6 [facility] Last Admin: 06/30/18 14:22 Dose: 3 ml Clotrimazole (Lotrimin 1%) 0 gm TOP BID [facility] Last Admin: 06/30/18 17:25 Dose: 1 appl Emollient Ointment (Vaseline Oint) 30 gm TOP Q6H PRN PRN Reason: Dry skin Last Admin: 06/26/18 10:26 Dose: 30 gm Gabapentin (Neurontin) 300 mg PO BID [facility] Last Admin: 06/30/18 17:26 Dose: 300 mg Guaifenesin (Mucinex La) 600 mg PO Q12H [facility] Last Admin: 06/30/18 18:00 Dose: 600 mg Heparin Sodium (Porcine) (Heparin) 5,000 units SC Q8 [facility] Last Admin: 06/30/18 13:34 Dose: 5,000 units Hydrocortisone Sodium Succinate (Solu-Cortef) 50 mg IV DAILY [facility] Last Admin: 06/30/18 09:58 Dose: 50 mg Metronidazole (Flagyl) 500 mg in 100 mls @ 100 mls/hr IVPB Q8H [facility]; Protocol Last Admin: 06/30/18 18:00 Dose: 100 mls/hr Ciprofloxacin (Cipro 400mg/200ml Dsw) 400 mg in 200 mls @ 133 mls/hr IVPB Q12H [facility]; Protocol Last Admin: 06/30/18 17:24 Dose: 133 mls/hr Linezolid (Zyvox 600mg/300ml D5w) 600 mg in 300 mls @ 200 mls/hr IVPB Q12H [facility]; Protocol Last Admin: 06/30/18 13:25 Dose: 200 mls/hr Lactic Acid (Lac-Hydrin 12% Lotion (225 G)) 1 gm EXT BID [facility] Last Admin: 06/30/18 17:25 Dose: 1 gm Ondansetron HCl (Zofran Inj) 4 mg IVP Q6 PRN PRN Reason: Nausea/Vomiting Last Admin: 06/22/18 23:01 Dose: 4 mg Pantoprazole Sodium (Protonix Ec Tab) 40 mg PO DAILY [facility] Last Admin: 06/30/18 09:59 Dose: 40 mg Tamsulosin HCl (Flomax) 0.4 mg PO DAILY [facility] Last Admin: 06/30/18 09:59 Dose: 0.4 mg - Labs Labs: 06/30/18 06:06 06/30/18 06:06 PT 13.5 SECONDS (9.7-12.2) H 06/21/18 10:43 INR 1.2 06/21/18 10:43 APTT 29 SECONDS (21-34) 06/21/18 10:43 Assessment and Plan (1) SBO (small bowel obstruction) Status: Acute (2) Incarcerated left inguinal hernia Status: Acute (3) Pneumonia Status: Acute (4) Leukocytosis Status: Acute (5) Generalized rash Status: Acute (6) APL (acute promyelocytic leukemia) Status: Acute - Assessment and Plan (Free Text) Plan: PLAN ON IV CIPRO 400MG IVPB Q12 HRLY 06/25/18 CONTINUE IV FLAGYL 500MG IV Q 8HRLY 06/23/18 ON IV ZYVOX 600MG IVPB TO COVER FOR STREP/STAPH ( GI/SSTI JACKELYN )06/26/18. WATCH H/H. PATIENT ON TRIAL WITH SOLID FOODS. TAPER OFF SEROIDS POSSIBLE. SURGERY F/U LT INGUINAL HERNIA SUPPORT. PER X [employer]AY EQUIPMENT MECHANIC /AND CONSULTANTS.
[2018-07-01] MEDS: Linezolid 600 mg in D5W 300 ml 600 MG/300 ML BAG IVPB SCH ×2 (00:27→13:26)
[2018-07-01] MEDS: Albuterol-Ipratrop 3 mg / 0.5 (3 ml) UD INH SCH ×4 (01:13→19:37)
[2018-07-01] MEDS: metroNIDAZOLE IV 500 mg/100 ml 500 MG/100 ML BAG IVPB SCH ×3 (02:28→18:54)
[2018-07-01] MEDS: Ciprofloxacin 400mg/200ml D5W 400 MG/200 ML BAG IVPB SCH ×2 (06:03→18:42)
[2018-07-01] MEDS: guaiFENesin 600 mg ER Tab PO SCH ×2 (06:30→18:44)
--- NOTE | 2018-07-01 10:06 | CP.PCM.PN ---
Subjective - Date & Time of Evaluation Date of Evaluation: 07/01/18 Time of Evaluation: 10:03 - Subjective Subjective: Notes reviewed Up all night with nausea and vomiting Does not feel well No cp or palp No fever or chills Unable to tolerate po this am Feels weak and tired from above events 10 point ros negative other than stated above Objective - Vital Signs/Intake and Output Vital Signs (last 24 hours): Temp Pulse Resp BP Pulse Ox 96.0 F L 87 18 110/65 95 07/01/18 08:02 07/01/18 08:02 07/01/18 08:02 07/01/18 08:02 07/01/18 08:02 Intake and Output: 07/01/18 07/01/18 06:59 18:59 Intake Total 970 Output Total 405 Balance 565 - Medications Medications: Current Medications Al Hydrox/Mg Hydrox/Simethicone (Maalox 30 Ml) 30 ml PO Q4 PRN PRN Reason: Indigestion / Heartburn Last Admin: 06/30/18 18:00 Dose: 30 ml Albuterol/Ipratropium (Duoneb 3 Mg/0.5 Mg (3 Ml) Ud) 3 ml INH RQ6 [facility] Last Admin: 07/01/18 08:38 Dose: 3 ml Clotrimazole (Lotrimin 1%) 0 gm TOP BID [facility] Last Admin: 06/30/18 17:25 Dose: 1 appl Emollient Ointment (Vaseline Oint) 30 gm TOP Q6H PRN PRN Reason: Dry skin Last Admin: 06/26/18 10:26 Dose: 30 gm Gabapentin (Neurontin) 300 mg PO BID [facility] Last Admin: 06/30/18 17:26 Dose: 300 mg Guaifenesin (Mucinex La) 600 mg PO Q12H [facility] Last Admin: 07/01/18 06:30 Dose: 600 mg Heparin Sodium (Porcine) (Heparin) 5,000 units SC Q8 [facility] Last Admin: 07/01/18 05:58 Dose: 5,000 units Hydrocortisone Sodium Succinate (Solu-Cortef) 50 mg IV DAILY [facility] Last Admin: 06/30/18 09:58 Dose: 50 mg Metronidazole (Flagyl) 500 mg in 100 mls @ 100 mls/hr IVPB Q8H [facility]; Protocol Last Admin: 07/01/18 02:28 Dose: 100 mls/hr Ciprofloxacin (Cipro 400mg/200ml Dsw) 400 mg in 200 mls @ 133 mls/hr IVPB Q12H [facility]; Protocol Last Admin: 07/01/18 06:03 Dose: 133 mls/hr Linezolid (Zyvox 600mg/300ml D5w) 600 mg in 300 mls @ 200 mls/hr IVPB Q12H [facility]; Protocol Last Admin: 07/01/18 00:27 Dose: 200 mls/hr Lactic Acid (Lac-Hydrin 12% Lotion (225 G)) 1 gm EXT BID [facility] Last Admin: 06/30/18 17:25 Dose: 1 gm Ondansetron HCl (Zofran Inj) 4 mg IVP Q6 PRN PRN Reason: Nausea/Vomiting Last Admin: 07/01/18 07:45 Dose: 4 mg Pantoprazole Sodium (Protonix Ec Tab) 40 mg PO DAILY [facility] Last Admin: 06/30/18 09:59 Dose: 40 mg Tamsulosin HCl (Flomax) 0.4 mg PO DAILY [facility] Last Admin: 06/30/18 09:59 Dose: 0.4 mg - Labs Labs: 06/30/18 06:06 06/30/18 06:06 PT 13.5 SECONDS (9.7-12.2) H 06/21/18 10:43 INR 1.2 06/21/18 10:43 APTT 29 SECONDS (21-34) 06/21/18 10:43 - Constitutional Appears: Non-toxic, Chronically Ill - Head Exam Head Exam: ATRAUMATIC, NORMOCEPHALIC - Eye Exam Eye Exam: EOMI, Normal appearance - ENT Exam ENT Exam: Mucous Membranes Moist, Normal Oropharynx - Respiratory Exam Respiratory Exam: absent: Rales, Rhonchi, Wheezes - Cardiovascular Exam Cardiovascular Exam: +S1, +S2. absent: Rubs - GI/Abdominal Exam GI & Abdominal Exam: Firm, Guarding, Normal Bowel Sounds - Extremities Exam Extremities Exam: absent: Joint Swelling, Pedal Edema - Neurological Exam Neurological Exam: Alert, Awake - Skin Skin Exam: Dry, Intact, Rash Assessment and Plan (1) VIOLETTE (acute kidney injury) Status: Acute (2) APL (acute promyelocytic leukemia) Status: Acute (3) Generalized rash Status: Acute (4) Pneumonia Status: Acute (5) SBO (small bowel obstruction) Status: Acute - Assessment and Plan (Free Text) Assessment: renal function stable Electrolytes acceptable Bp controlled Suggest continuation of ppn due to GI distress Gi follow up Continue current care, no changes renal gaspar
[2018-07-01] MEDS: Pantoprazole 40 mg EC Tab PO SCH (10:43)
[2018-07-01] MEDS: Clotrimazole 1% Cream(30 gm) TOP SCH ×2 (10:50→18:59)
[2018-07-01] MEDS: Ammonium Lactate 12% Lotion (225 g) EXT SCH ×2 (10:50→18:58)
[2018-07-01] MEDS ORDERED: Iohexol 240 (50 ml) PO ONE (13:30)
--- NOTE | 2018-07-01 14:30 | CP.PCM.PN ---
Subjective - Date & Time of Evaluation Date of Evaluation: 07/01/18 Time of Evaluation: 14:29 - Subjective Subjective: CHIEF COMPLAINTS TODAY : NGT IS OUT ON DIET RENAL ISUFF. HAS IMPROVED H/H LOW 7.7 LAST NIGHT PATIENT HAD EXCESS AMOUNT OF VOMITING AND ABDOMINAL PAIN ROS. HEENT : N. Resp : No cough, wheezing ,pleuritic CP ,or hemoptysis Cardio : No anginal CP, PND, orthopnea, palpitation GI : No abd.pain, n/v ,diarrhea or GI bleeding . RN PRIVATE DUTY : No headache, vertigo, focal deficit. Musculoskel : No joint swelling , Derm rash all over the body Psych : Normal affect. Ext : No swelling ,calf pain PE. Pt. is alert awake in no distress. V.S As noted in the chart Head ,ear nose,throat and eyes : Normal. Neck : Supple with normal carotids. Lungs: Clear air entry. Heart : S1 & S2 normal with S4. No murmur. Abd : Soft non tender mild distention Neuro : Moves all ext. with no localized deficit. Ext : No edema with intact pulses.Non tender calves Derm : Generalized erythema with exfoliation LABS/RADIOLOGY ASSESSMENT/PLAN : CONT IV AB AND FLUIDS WILL ORDER A ct OF THE ABDOMEN FOR CONTINUED VOMITING Objective - Vital Signs/Intake and Output Vital Signs (last 24 hours): Temp Pulse Resp BP Pulse Ox 96.0 F L 87 18 110/65 95 07/01/18 08:02 07/01/18 08:02 07/01/18 08:02 07/01/18 08:02 07/01/18 08:02 Intake and Output: 07/01/18 07/01/18 11:59 23:59 Intake Total 870 Output Total 205 Balance 665 - Medications Medications: Current Medications Al Hydrox/Mg Hydrox/Simethicone (Maalox 30 Ml) 30 ml PO Q4 PRN PRN Reason: Indigestion / Heartburn Last Admin: 06/30/18 18:00 Dose: 30 ml Albuterol/Ipratropium (Duoneb 3 Mg/0.5 Mg (3 Ml) Ud) 3 ml INH RQ6 [facility] Last Admin: 07/01/18 13:16 Dose: 3 ml Clotrimazole (Lotrimin 1%) 0 gm TOP BID [facility] Last Admin: 07/01/18 10:50 Dose: 1 appl Emollient Ointment (Vaseline Oint) 30 gm TOP Q6H PRN PRN Reason: Dry skin Last Admin: 06/26/18 10:26 Dose: 30 gm Gabapentin (Neurontin) 300 mg PO BID [facility] Last Admin: 07/01/18 10:43 Dose: 300 mg Guaifenesin (Mucinex La) 600 mg PO Q12H [facility] Last Admin: 07/01/18 06:30 Dose: 600 mg Heparin Sodium (Porcine) (Heparin) 5,000 units SC Q8 [facility] Last Admin: 07/01/18 05:58 Dose: 5,000 units Hydrocortisone Sodium Succinate (Solu-Cortef) 50 mg IV DAILY [facility] Last Admin: 07/01/18 11:32 Dose: 50 mg Metronidazole (Flagyl) 500 mg in 100 mls @ 100 mls/hr IVPB Q8H [facility]; Protocol Last Admin: 07/01/18 10:43 Dose: 100 mls/hr Ciprofloxacin (Cipro 400mg/200ml Dsw) 400 mg in 200 mls @ 133 mls/hr IVPB Q12H [facility]; Protocol Last Admin: 07/01/18 06:03 Dose: 133 mls/hr Linezolid (Zyvox 600mg/300ml D5w) 600 mg in 300 mls @ 200 mls/hr IVPB Q12H [facility]; Protocol Last Admin: 07/01/18 13:26 Dose: 200 mls/hr Lactic Acid (Lac-Hydrin 12% Lotion (225 G)) 1 gm EXT BID [facility] Last Admin: 07/01/18 10:50 Dose: 1 applic Ondansetron HCl (Zofran Inj) 4 mg IVP Q6 PRN PRN Reason: Nausea/Vomiting Last Admin: 07/01/18 07:45 Dose: 4 mg Pantoprazole Sodium (Protonix Ec Tab) 40 mg PO DAILY [facility] Last Admin: 07/01/18 10:43 Dose: 40 mg Tamsulosin HCl (Flomax) 0.4 mg PO DAILY [facility] Last Admin: 07/01/18 10:43 Dose: 0.4 mg - Labs Labs: 06/30/18 06:06 06/30/18 06:06 PT 13.5 SECONDS (9.7-12.2) H 06/21/18 10:43 INR 1.2 06/21/18 10:43 APTT 29 SECONDS (21-34) 06/21/18 10:43
--- NOTE | 2018-07-01 18:35 | CP.PCM.PN ---
Subjective - Date & Time of Evaluation Date of Evaluation: 07/01/18 Time of Evaluation: 18:35 - Subjective Subjective: afebrile,AAO c/o nausea/and vomiting c/o mild abdominal discomfor unable to hold liquids states they tried to insert NGT - BUT COULD NOT DO IT ROS. HEENT : N. Resp : No cough, wheezing ,pleuritic CP ,or hemoptysis Cardio : No anginal CP, PND, orthopnea, palpitation GI : No abd.pain, n/v ,diarrhea or GI bleeding . CRANE MANAGER : No headache, vertigo, focal deficit. Musculoskel : No joint swelling , Derm rash all over the body Psych : Normal affect. Ext : No swelling ,calf pain PE. Pt. is in no distress. V.S As noted in the chart Head ,ear nose,throat and eyes : Normal.+VE NGT Neck : Supple with normal carotids. Lungs: fair air entry Heart : S1 & S2 normal with S4. No murmur. Abd : Soft mild tenderness epigastric and mid abdomen with normal bowel sounds. Neuro : Moves all ext. with no localized deficit. Ext : No edema with intact pulses.Non tender calves Derm : Generalized erythema with exfoliation improving LABS/RADIOLOGY: WBC 22.1 H/H 7.8 CXR; 06/27/18 MILD VENOUS CONGESTION. SMALL LEFT PLEURAL EFFUSION. RENAL FUNCTION IMPROVED Repeat CAT scan of the abdomen shows still small bowel obstruction with some thickening of the small bowel indicating previous incarceration. Objective - Vital Signs/Intake and Output Vital Signs (last 24 hours): Temp Pulse Resp BP Pulse Ox 97.7 F 101 H 20 116/57 L 97 07/01/18 17:56 07/01/18 17:56 07/01/18 17:56 07/01/18 17:56 07/01/18 17:56 Intake and Output: 07/01/18 07/01/18 06:59 18:59 Intake Total 970 500 Output Total 405 Balance 565 500 - Medications Medications: Current Medications Al Hydrox/Mg Hydrox/Simethicone (Maalox 30 Ml) 30 ml PO Q4 PRN PRN Reason: Indigestion / Heartburn Last Admin: 06/30/18 18:00 Dose: 30 ml Albuterol/Ipratropium (Duoneb 3 Mg/0.5 Mg (3 Ml) Ud) 3 ml INH RQ6 [facility] Last Admin: 07/01/18 13:16 Dose: 3 ml Clotrimazole (Lotrimin 1%) 0 gm TOP BID [facility] Last Admin: 07/01/18 10:50 Dose: 1 appl Emollient Ointment (Vaseline Oint) 30 gm TOP Q6H PRN PRN Reason: Dry skin Last Admin: 06/26/18 10:26 Dose: 30 gm Gabapentin (Neurontin) 300 mg PO BID [facility] Last Admin: 07/01/18 10:43 Dose: 300 mg Guaifenesin (Mucinex La) 600 mg PO Q12H [facility] Last Admin: 07/01/18 06:30 Dose: 600 mg Heparin Sodium (Porcine) (Heparin) 5,000 units SC Q8 [facility] Last Admin: 07/01/18 14:30 Dose: 5,000 units Hydrocortisone Sodium Succinate (Solu-Cortef) 50 mg IV DAILY [facility] Last Admin: 07/01/18 11:32 Dose: 50 mg Metronidazole (Flagyl) 500 mg in 100 mls @ 100 mls/hr IVPB Q8H [facility]; Protocol Last Admin: 07/01/18 10:43 Dose: 100 mls/hr Ciprofloxacin (Cipro 400mg/200ml Dsw) 400 mg in 200 mls @ 133 mls/hr IVPB Q12H [facility]; Protocol Last Admin: 07/01/18 06:03 Dose: 133 mls/hr Linezolid (Zyvox 600mg/300ml D5w) 600 mg in 300 mls @ 200 mls/hr IVPB Q12H [facility]; Protocol Last Admin: 07/01/18 13:26 Dose: 200 mls/hr Lactic Acid (Lac-Hydrin 12% Lotion (225 G)) 1 gm EXT BID [facility] Last Admin: 07/01/18 10:50 Dose: 1 applic Ondansetron HCl (Zofran Inj) 4 mg IVP Q6 PRN PRN Reason: Nausea/Vomiting Last Admin: 07/01/18 07:45 Dose: 4 mg Pantoprazole Sodium (Protonix Ec Tab) 40 mg PO DAILY [facility] Last Admin: 07/01/18 10:43 Dose: 40 mg Tamsulosin HCl (Flomax) 0.4 mg PO DAILY [facility] Last Admin: 07/01/18 10:43 Dose: 0.4 mg - Labs Labs: 06/30/18 06:06 06/30/18 06:06 PT 13.5 SECONDS (9.7-12.2) H 06/21/18 10:43 INR 1.2 06/21/18 10:43 APTT 29 SECONDS (21-34) 06/21/18 10:43 Assessment and Plan (1) SBO (small bowel obstruction) Status: Acute (2) Incarcerated left inguinal hernia Status: Acute (3) Pneumonia Status: Acute (4) Leukocytosis Status: Acute (5) Generalized rash Status: Acute (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 WATCH H/H SURGERY F/U PT FOR REPEAT CT ABDOMEN /PELVIS W PO CONTRAST. FAMILY AT BEDSIDE. CASE DISCUSSED W PMD.
[2018-07-01] MEDS: Dextrose 5%/0.45% NS 1,000 ML IV SCH (19:08)
[2018-07-02] MEDS: Linezolid 600 mg in D5W 300 ml 600 MG/300 ML BAG IVPB SCH ×2 (01:37→12:04)
[2018-07-02] MEDS: metroNIDAZOLE IV 500 mg/100 ml 500 MG/100 ML BAG IVPB SCH ×3 (03:28→20:52)
[2018-07-02] MEDS: Dextrose 5%/0.45% NS 1,000 ML IV SCH ×3 (03:38→21:57)
[2018-07-02] MEDS: guaiFENesin 600 mg ER Tab PO SCH ×2 (06:24→18:17)
[2018-07-02] MEDS: Ciprofloxacin 400mg/200ml D5W 400 MG/200 ML BAG IVPB SCH ×2 (06:25→18:18)
[2018-07-02] MEDS: Albuterol-Ipratrop 3 mg / 0.5 (3 ml) UD INH SCH ×5 (06:48→20:34)
[2018-07-02 08:54] LABS: ALB/GLOB RATIO 0.9 (1.0-2.1); ALBUMIN 2.9 g/dL (3.5-5.0); ALT/SGPT 21 U/L (21-72); AST/SGOT 18 U/L (17-59); BLOOD UREA NITROGEN 19 mg/dL (9-20); CALCIUM 9.9 mg/dl (8.6-10.4); GFR NON-AFRICAN AMERICAN 59
[2018-07-02] MEDS: Pantoprazole 40 mg EC Tab PO SCH (09:26)
[2018-07-02] MEDS: Ammonium Lactate 12% Lotion (225 g) EXT SCH ×2 (09:28→22:00)
[2018-07-02] MEDS: Clotrimazole 1% Cream(30 gm) TOP SCH ×2 (09:34→22:00)
--- NOTE | 2018-07-02 13:53 | RAD ---
Date of service: 07/02/2018 HISTORY: Emesis, ? obstruction COMPARISON: CT abdomen and pelvis without IV contrast performed 06/25/18 FINDINGS: BOWEL: Air-filled dilated loops of small bowel in the mid abdomen. Oral contrast is noted at the rectosigmoid colon. No definite free air. BONES: Osseous demineralization. Degenerative changes. OTHER FINDINGS: None. IMPRESSION: Air-filled dilated loops of bowel in the mid abdomen raises consistent with obstruction, possibly intermittent or partial obstruction. Oral contrast is noted at the rectosigmoid colon.
[2018-07-02] MEDS ORDERED: Iohexol 300 100 ML IJ ONE (14:52)
--- NOTE | 2018-07-02 15:26 | CP.PCM.PN ---
Subjective - Date & Time of Evaluation Date of Evaluation: 07/02/18 Time of Evaluation: 15:25 - Subjective Subjective: Patient has intermittent vomiting which is not responded with the medications. CT of the abdomen was not able to be done as patient vomits the contrast out. Flat plate of the abdomen shows dilated small bowels suggesting partial small b owel obstruction Consult with surgery for further planning. Keep patient nothing by mouth continue IV fluids Objective - Vital Signs/Intake and Output Vital Signs (last 24 hours): Temp Pulse Resp BP Pulse Ox 98.1 F 102 H 20 111/63 98 07/02/18 07:46 07/02/18 07:46 07/02/18 07:46 07/02/18 07:46 07/02/18 07:46 Intake and Output: 07/02/18 07/02/18 11:59 23:59 Intake Total 100 Balance 100 - Medications Medications: Current Medications Al Hydrox/Mg Hydrox/Simethicone (Maalox 30 Ml) 30 ml PO Q4 PRN PRN Reason: Indigestion / Heartburn Last Admin: 06/30/18 18:00 Dose: 30 ml Albuterol/Ipratropium (Duoneb 3 Mg/0.5 Mg (3 Ml) Ud) 3 ml INH RQ6 [facility] Last Admin: 07/02/18 14:56 Dose: 3 ml Clotrimazole (Lotrimin 1%) 0 gm TOP BID [facility] Last Admin: 07/02/18 09:34 Dose: 1 appl Emollient Ointment (Vaseline Oint) 30 gm TOP Q6H PRN PRN Reason: Dry skin Last Admin: 06/26/18 10:26 Dose: 30 gm Gabapentin (Neurontin) 300 mg PO BID [facility] Last Admin: 07/02/18 09:27 Dose: 300 mg Guaifenesin (Mucinex La) 600 mg PO Q12H [facility] Last Admin: 07/02/18 06:24 Dose: 600 mg Heparin Sodium (Porcine) (Heparin) 5,000 units SC Q8 [facility] Last Admin: 07/02/18 13:21 Dose: 5,000 units Hydrocortisone Sodium Succinate (Solu-Cortef) 50 mg IV DAILY [facility] Last Admin: 07/02/18 09:26 Dose: 50 mg Metronidazole (Flagyl) 500 mg in 100 mls @ 100 mls/hr IVPB Q8H [facility]; Protocol Last Admin: 07/02/18 10:18 Dose: 100 mls/hr Ciprofloxacin (Cipro 400mg/200ml Dsw) 400 mg in 200 mls @ 133 mls/hr IVPB Q12H [facility]; Protocol Last Admin: 07/02/18 06:25 Dose: 133 mls/hr Linezolid (Zyvox 600mg/300ml D5w) 600 mg in 300 mls @ 200 mls/hr IVPB Q12H [facility]; Protocol Last Admin: 07/02/18 12:04 Dose: 200 mls/hr Dextrose/Sodium Chloride (Dextrose 5%/0.45% Ns 1000 Ml) 1,000 mls @ 120 mls/hr IV .Q8H20M [facility] Last Admin: 07/02/18 11:04 Dose: Not Given Lactic Acid (Lac-Hydrin 12% Lotion (225 G)) 1 gm EXT BID [facility] Last Admin: 07/02/18 09:28 Dose: 1 applic Ondansetron HCl (Zofran Inj) 4 mg IVP Q6 PRN PRN Reason: Nausea/Vomiting Last Admin: 07/01/18 22:27 Dose: 4 mg Pantoprazole Sodium (Protonix Ec Tab) 40 mg PO DAILY [facility] Last Admin: 07/02/18 09:26 Dose: 40 mg Tamsulosin HCl (Flomax) 0.4 mg PO DAILY [facility] Last Admin: 07/02/18 09:26 Dose: 0.4 mg - Labs Labs: 06/30/18 06:06 07/02/18 08:06 PT 13.5 SECONDS (9.7-12.2) H 06/21/18 10:43 INR 1.2 06/21/18 10:43 APTT 29 SECONDS (21-34) 06/21/18 10:43
--- NOTE | 2018-07-02 16:31 | CT ---
Date of service: 07/02/2018 PROCEDURE: CT Abdomen and Pelvis with contrast HISTORY: obstruction COMPARISON: 06/25/2018 CT TECHNIQUE: Contrast dose: 100 cc of Visipaque 320 Radiation dose: Total exam DLP = 1149.66 mGy-cm. This CT exam was performed using one or more of the following dose reduction techniques: Automated exposure control, adjustment of the mA and/or kV according to patient size, and/or use of iterative reconstruction technique. FINDINGS: LOWER THORAX: Bibasilar infiltrates and small pleural effusions. LIVER: Unremarkable. No gross lesion or ductal dilatation. GALLBLADDER AND BILE DUCTS: Unremarkable. PANCREAS: Unremarkable. No gross lesion or ductal dilatation. SPLEEN: Unremarkable. ADRENALS: Unremarkable. No mass. KIDNEYS AND URETERS: Unremarkable. No hydronephrosis. No solid mass. VASCULATURE: Unremarkable. No aortic aneurysm. No aortic atherosclerotic calcification or mural plaque present. BOWEL: There is severe small bowel obstruction with small bowel loops measuring up to 5 cm diameter. The majority of small bowel loops are filled with fluid. The obstruction is at the level of the left inguinal hernia. There is a transition point clearly demonstrated on coronal image 39 series 601. There is no evidence of pneumatosis or free air. The stomach is also severely distended and contains a fluid level. A small amount of contrast can be seen in the colon and rectum. This is probably from the previous study APPENDIX: Normal appendix. PERITONEUM: Unremarkable. No free fluid. No free air. LYMPH NODES: As noted previously there multiple large pelvic and inguinal lymph nodes. Clinical correlation is suggested. BLADDER: Unremarkable. REPRODUCTIVE: Unremarkable. BONES: No acute fracture. OTHER FINDINGS: None. IMPRESSION: There is severe small bowel obstruction with small bowel loops measuring up to 5 cm diameter. The majority of small bowel loops are filled with fluid. The obstruction is at the level of the left inguinal hernia. There is a transition point clearly demonstrated
[2018-07-02 20:25] LABS: BASO # 0.2 K/uL (0.0-0.2); BASO % 0.6 % (0.0-2.0); EOS % 0.1 % (0.0-4.0); HEMOGLOBIN 8.2 g/dL (12.0-18.0); LYMPH # 5.8 K/uL (1.0-4.3); MEAN CELL VOLUME 82.5 fL (80.0-94.0); MEAN CORPUSCULAR HEMOGLOBIN 26.4 pg (27.0-31.0); MEAN PLATELET VOLUME 8.4 fL (7.2-11.7); MONO % 3.6 % (0.0-10.0); NEUT # 19.2 K/uL (1.8-7.0); NEUT % 73.7 % (50.0-75.0); NRBC % 0.2 % (0.0-2.0); RBC 3.09 Mil/uL (4.40-5.90); RED CELL DISTRIBUTION WIDTH 15.8 % (11.5-14.5); WHITE BLOOD COUNT 26.1 K/uL (4.8-10.8)
--- NOTE | 2018-07-02 23:20 | CP.PCM.PN ---
Subjective - Date & Time of Evaluation Date of Evaluation: 07/01/18 Time of Evaluation: 20:00 - Subjective Subjective: Has abdominal discomfort with N/V. Objective - Vital Signs/Intake and Output Vital Signs (last 24 hours): Temp Pulse Resp BP Pulse Ox 97.8 F 91 H 20 118/54 L 100 07/02/18 16:11 07/02/18 16:11 07/02/18 16:11 07/02/18 16:11 07/02/18 16:11 Intake and Output: 07/02/18 07/03/18 18:59 06:59 Intake Total 100 Balance 100 - Medications Medications: Current Medications Al Hydrox/Mg Hydrox/Simethicone (Maalox 30 Ml) 30 ml PO Q4 PRN PRN Reason: Indigestion / Heartburn Last Admin: 06/30/18 18:00 Dose: 30 ml Albuterol/Ipratropium (Duoneb 3 Mg/0.5 Mg (3 Ml) Ud) 3 ml INH RQ6 [facility] Last Admin: 07/02/18 20:34 Dose: 3 ml Clotrimazole (Lotrimin 1%) 0 gm TOP BID [facility] Last Admin: 07/02/18 22:00 Dose: 1 appl Emollient Ointment (Vaseline Oint) 30 gm TOP Q6H PRN PRN Reason: Dry skin Last Admin: 06/26/18 10:26 Dose: 30 gm Gabapentin (Neurontin) 300 mg PO BID [facility] Last Admin: 07/02/18 18:16 Dose: Not Given Guaifenesin (Mucinex La) 600 mg PO Q12H [facility] Last Admin: 07/02/18 18:17 Dose: Not Given Hydrocortisone Sodium Succinate (Solu-Cortef) 50 mg IV DAILY [facility] Last Admin: 07/02/18 09:26 Dose: 50 mg Ciprofloxacin (Cipro 400mg/200ml Dsw) 400 mg in 200 mls @ 133 mls/hr IVPB Q12H [facility]; Protocol Last Admin: 07/02/18 18:18 Dose: 133 mls/hr Linezolid (Zyvox 600mg/300ml D5w) 600 mg in 300 mls @ 200 mls/hr IVPB Q12H [facility]; Protocol Last Admin: 07/02/18 12:04 Dose: 200 mls/hr Dextrose/Sodium Chloride (Dextrose 5%/0.45% Ns 1000 Ml) 1,000 mls @ 120 mls/hr IV .Q8H20M [facility] Last Admin: 07/02/18 21:57 Dose: 120 mls/hr Lactic Acid (Lac-Hydrin 12% Lotion (225 G)) 1 gm EXT BID [facility] Last Admin: 07/02/18 22:00 Dose: 1 applic Ondansetron HCl (Zofran Inj) 4 mg IVP Q6 PRN PRN Reason: Nausea/Vomiting Last Admin: 07/02/18 21:59 Dose: 4 mg Pantoprazole Sodium (Protonix Ec Tab) 40 mg PO DAILY [facility] Last Admin: 07/02/18 09:26 Dose: 40 mg Tamsulosin HCl (Flomax) 0.4 mg PO DAILY [facility] Last Admin: 07/02/18 09:26 Dose: 0.4 mg - Labs Labs: 07/02/18 20:22 07/02/18 08:06 PT 13.5 SECONDS (9.7-12.2) H 06/21/18 10:43 INR 1.2 06/21/18 10:43 APTT 29 SECONDS (21-34) 06/21/18 10:43 - Head Exam Head Exam: ATRAUMATIC - Eye Exam Eye Exam: Normal appearance - ENT Exam ENT Exam: Mucous Membranes Dry - Cardiovascular Exam Cardiovascular Exam: +S1, +S2 - GI/Abdominal Exam GI & Abdominal Exam: Normal Bowel Sounds Assessment and Plan (1) Leukocytosis Assessment & Plan: on antibiotics reactive component flow cytometery negative for acute promyelocytic leukemia; tcell population noted, awaiting PCR results Status: Acute (2) Anemia Assessment & Plan: chronic disease transfusion support PRN Status: Acute (3) APL (acute promyelocytic leukemia) Assessment & Plan: flow cytometery negative for recurrence Status: Acute
--- NOTE | 2018-07-02 23:22 | CP.PCM.PN ---
Subjective - Date & Time of Evaluation Date of Evaluation: 07/02/18 Time of Evaluation: 23:22 - Subjective Subjective: afebrile,AAO c/o nausea/and INTERMITTENT vomiting c/o mild abdominal discomfort PT NPO NOW flat plate of abdomen noted ? SBO ROS. HEENT : N. Resp : No cough, wheezing ,pleuritic CP ,or hemoptysis Cardio : No anginal CP, PND, orthopnea, palpitation GI : No abd.pain, n/v ,diarrhea or GI bleeding . 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 Musculoskel : No joint swelling , Derm rash all over the body Psych : Normal affect. Ext : No swelling ,calf pain PE. Pt. is in no distress. V.S As noted in the chart Head ,ear nose,throat and eyes : Normal.+VE NGT Neck : Supple with normal carotids. Lungs: fair air entry Heart : S1 & S2 normal with S4. No murmur. Abd : Soft mild tenderness epigastric and mid abdomen with normal bowel sounds. Neuro : Moves all ext. with no localized deficit. Ext : No edema with intact pulses.Non tender calves Derm : Generalized erythema with exfoliation improving LABS/RADIOLOGY: REVIEWED Objective - Vital Signs/Intake and Output Vital Signs (last 24 hours): Temp Pulse Resp BP Pulse Ox 97.8 F 91 H 20 118/54 L 100 07/02/18 16:11 07/02/18 16:11 07/02/18 16:11 07/02/18 16:11 07/02/18 16:11 Intake and Output: 07/02/18 07/03/18 18:59 06:59 Intake Total 100 Balance 100 - Medications Medications: Current Medications Al Hydrox/Mg Hydrox/Simethicone (Maalox 30 Ml) 30 ml PO Q4 PRN PRN Reason: Indigestion / Heartburn Last Admin: 06/30/18 18:00 Dose: 30 ml Albuterol/Ipratropium (Duoneb 3 Mg/0.5 Mg (3 Ml) Ud) 3 ml INH RQ6 [facility] Last Admin: 07/02/18 20:34 Dose: 3 ml Clotrimazole (Lotrimin 1%) 0 gm TOP BID [facility] Last Admin: 07/02/18 22:00 Dose: 1 appl Emollient Ointment (Vaseline Oint) 30 gm TOP Q6H PRN PRN Reason: Dry skin Last Admin: 06/26/18 10:26 Dose: 30 gm Gabapentin (Neurontin) 300 mg PO BID [facility] Last Admin: 07/02/18 18:16 Dose: Not Given Guaifenesin (Mucinex La) 600 mg PO Q12H [facility] Last Admin: 07/02/18 18:17 Dose: Not Given Hydrocortisone Sodium Succinate (Solu-Cortef) 50 mg IV DAILY [facility] Last Admin: 07/02/18 09:26 Dose: 50 mg Ciprofloxacin (Cipro 400mg/200ml Dsw) 400 mg in 200 mls @ 133 mls/hr IVPB Q12H [facility]; Protocol Last Admin: 07/02/18 18:18 Dose: 133 mls/hr Linezolid (Zyvox 600mg/300ml D5w) 600 mg in 300 mls @ 200 mls/hr IVPB Q12H [facility]; Protocol Last Admin: 07/02/18 12:04 Dose: 200 mls/hr Dextrose/Sodium Chloride (Dextrose 5%/0.45% Ns 1000 Ml) 1,000 mls @ 120 mls/hr IV .Q8H20M [facility] Last Admin: 07/02/18 21:57 Dose: 120 mls/hr Lactic Acid (Lac-Hydrin 12% Lotion (225 G)) 1 gm EXT BID [facility] Last Admin: 07/02/18 22:00 Dose: 1 applic Ondansetron HCl (Zofran Inj) 4 mg IVP Q6 PRN PRN Reason: Nausea/Vomiting Last Admin: 07/02/18 21:59 Dose: 4 mg Pantoprazole Sodium (Protonix Ec Tab) 40 mg PO DAILY [facility] Last Admin: 07/02/18 09:26 Dose: 40 mg Tamsulosin HCl (Flomax) 0.4 mg PO DAILY [facility] Last Admin: 07/02/18 09:26 Dose: 0.4 mg - Labs Labs: 07/02/18 20:22 07/02/18 08:06 PT 13.5 SECONDS (9.7-12.2) H 06/21/18 10:43 INR 1.2 06/21/18 10:43 APTT 29 SECONDS (21-34) 06/21/18 10:43 Assessment and Plan (1) SBO (small bowel obstruction) Status: Acute (2) Incarcerated left inguinal hernia Status: Acute (3) Pneumonia Status: Acute (4) Leukocytosis Status: Acute (5) Generalized rash Status: Acute (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 SURGERY F/U PT NPO NOW .
[2018-07-03] MEDS: Linezolid 600 mg in D5W 300 ml 600 MG/300 ML BAG IVPB SCH ×2 (00:41→13:05)
[2018-07-03] MEDS: Albuterol-Ipratrop 3 mg / 0.5 (3 ml) UD INH SCH ×5 (02:27→20:19)
[2018-07-03] MEDS: metroNIDAZOLE IV 500 mg/100 ml 500 MG/100 ML BAG IVPB SCH ×3 (02:28→19:57)
[2018-07-03] MEDS: Dextrose 5%/0.45% NS 1,000 ML IV SCH ×2 (05:22→22:06)
[2018-07-03] MEDS: Ciprofloxacin 400mg/200ml D5W 400 MG/200 ML BAG IVPB SCH ×2 (05:23→17:03)
[2018-07-03] MEDS: guaiFENesin 600 mg ER Tab PO SCH ×2 (06:02→19:57)
[2018-07-03 08:11] LABS: ALB/GLOB RATIO 0.9 (1.0-2.1); ALBUMIN 2.7 g/dL (3.5-5.0); ALT/SGPT 25 U/L (21-72); AST/SGOT 20 U/L (17-59); BLOOD UREA NITROGEN 19 mg/dL (9-20); CALCIUM 9.3 mg/dl (8.6-10.4); GFR NON-AFRICAN AMERICAN 59
--- NOTE | 2018-07-03 11:17 | CP.PCM.PN ---
Subjective - Date & Time of Evaluation Date of Evaluation: 07/03/18 Time of Evaluation: 11:14 - Subjective Subjective: On IV fluids for nausea, vomiting; off PPN K still low; renal function stable Objective - Vital Signs/Intake and Output Vital Signs (last 24 hours): Temp Pulse Resp BP Pulse Ox 97.9 F 87 20 112/53 L 98 07/03/18 07:00 07/03/18 07:00 07/03/18 07:00 07/03/18 07:00 07/03/18 07:00 Intake and Output: 07/03/18 07/03/18 06:59 18:59 Intake Total 1020 Balance 1020 - Medications Medications: Current Medications Al Hydrox/Mg Hydrox/Simethicone (Maalox 30 Ml) 30 ml PO Q4 PRN PRN Reason: Indigestion / Heartburn Last Admin: 06/30/18 18:00 Dose: 30 ml Albuterol/Ipratropium (Duoneb 3 Mg/0.5 Mg (3 Ml) Ud) 3 ml INH RQ6 [facility] Last Admin: 07/03/18 07:33 Dose: Not Given Clotrimazole (Lotrimin 1%) 0 gm TOP BID [facility] Last Admin: 07/02/18 22:00 Dose: 1 appl Emollient Ointment (Vaseline Oint) 30 gm TOP Q6H PRN PRN Reason: Dry skin Last Admin: 06/26/18 10:26 Dose: 30 gm Gabapentin (Neurontin) 300 mg PO BID [facility] Last Admin: 07/02/18 18:16 Dose: Not Given Guaifenesin (Mucinex La) 600 mg PO Q12H [facility] Last Admin: 07/03/18 06:02 Dose: Not Given Heparin Sodium (Porcine) (Heparin) 5,000 units SC Q8 [facility] Hydrocortisone Sodium Succinate (Solu-Cortef) 50 mg IV DAILY [facility] Last Admin: 07/02/18 09:26 Dose: 50 mg Ciprofloxacin (Cipro 400mg/200ml Dsw) 400 mg in 200 mls @ 133 mls/hr IVPB Q12H [facility]; Protocol Last Admin: 07/03/18 05:23 Dose: 133 mls/hr Linezolid (Zyvox 600mg/300ml D5w) 600 mg in 300 mls @ 200 mls/hr IVPB Q12H [facility]; Protocol Last Admin: 07/03/18 00:41 Dose: 200 mls/hr Dextrose/Sodium Chloride (Dextrose 5%/0.45% Ns 1000 Ml) 1,000 mls @ 120 mls/hr IV .Q8H20M [facility] Last Admin: 07/03/18 05:22 Dose: 120 mls/hr Metronidazole (Flagyl) 500 mg in 100 mls @ 100 mls/hr IVPB Q8H [facility]; Protocol Last Admin: 07/03/18 02:28 Dose: 100 mls/hr Lactic Acid (Lac-Hydrin 12% Lotion (225 G)) 1 gm EXT BID [facility] Last Admin: 07/02/18 22:00 Dose: 1 applic Ondansetron HCl (Zofran Inj) 4 mg IVP Q6 PRN PRN Reason: Nausea/Vomiting Last Admin: 07/02/18 21:59 Dose: 4 mg Pantoprazole Sodium (Protonix Ec Tab) 40 mg PO DAILY [facility] Last Admin: 07/02/18 09:26 Dose: 40 mg Tamsulosin HCl (Flomax) 0.4 mg PO DAILY [facility] Last Admin: 07/02/18 09:26 Dose: 0.4 mg - Labs Labs: 07/02/18 20:22 07/03/18 07:42 PT 13.5 SECONDS (9.7-12.2) H 06/21/18 10:43 INR 1.2 06/21/18 10:43 APTT 29 SECONDS (21-34) 06/21/18 10:43 - Constitutional Appears: No Acute Distress, Chronically Ill - Head Exam Head Exam: ATRAUMATIC, NORMAL INSPECTION - Eye Exam Eye Exam: EOMI, Normal appearance - Neck Exam Neck Exam: Normal Inspection. absent: Tenderness - Respiratory Exam Respiratory Exam: Clear to Ausculation Bilateral, NORMAL BREATHING PATTERN - Cardiovascular Exam Cardiovascular Exam: REGULAR RHYTHM, +S1 - GI/Abdominal Exam GI & Abdominal Exam: Soft - Extremities Exam Extremities Exam: Normal Inspection. absent: Pedal Edema - Neurological Exam Neurological Exam: Altered - Skin Skin Exam: Dry, Warm Assessment and Plan (1) APL (acute promyelocytic leukemia) Status: Acute (2) Pneumonia Status: Acute (3) VIOLETTE (acute kidney injury) Status: Resolved (4) Pneumonia Status: Acute (5) Mullins-Ildefonso disease Status: Acute - Assessment and Plan (Free Text) Plan: Replete K again follow up clarissetes
[2018-07-03] MEDS: Ammonium Lactate 12% Lotion (225 g) EXT SCH ×2 (11:46→17:10)
[2018-07-03] MEDS: Clotrimazole 1% Cream(30 gm) TOP SCH ×2 (11:48→17:14)
[2018-07-03] MEDS: Pantoprazole 40 mg EC Tab PO SCH (11:49)
[2018-07-03] MEDS: Petrolatum Oint Foilpak (5 gm) TOP PRN (11:53)
--- NOTE | 2018-07-03 12:12 | CP.PCM.PN ---
Subjective - Date & Time of Evaluation Date of Evaluation: 07/03/18 Time of Evaluation: 07:10 - Subjective Subjective: Surgery Progress note. Dr. Garvin. Pt seen and examined at bedside. Patient noted to have nausea and vomiting over the weekend, repeat CT with evidence of recurrent left inguinal hernia with SBO. Attempted to put NGT however, patient continues to refuse. Hernia reduced at bedside this morning and this afternoon. Patient denies any nausea or vomiting since reducing the hernia. No urinary complaints. Objective - Vital Signs/Intake and Output Vital Signs (last 24 hours): Temp Pulse Resp BP Pulse Ox 97.9 F 87 20 112/53 L 98 07/03/18 07:00 07/03/18 07:00 07/03/18 07:00 07/03/18 07:00 07/03/18 07:00 Intake and Output: 07/03/18 07/03/18 06:59 18:59 Intake Total 1020 Balance 1020 - Medications Medications: Current Medications Al Hydrox/Mg Hydrox/Simethicone (Maalox 30 Ml) 30 ml PO Q4 PRN PRN Reason: Indigestion / Heartburn Last Admin: 06/30/18 18:00 Dose: 30 ml Albuterol/Ipratropium (Duoneb 3 Mg/0.5 Mg (3 Ml) Ud) 3 ml INH RQ6 [facility] Last Admin: 07/03/18 07:33 Dose: Not Given Clotrimazole (Lotrimin 1%) 0 gm TOP BID [facility] Last Admin: 07/03/18 11:48 Dose: 1 appl Emollient Ointment (Vaseline Oint) 30 gm TOP Q6H PRN PRN Reason: Dry skin Last Admin: 07/03/18 11:53 Dose: 30 gm Gabapentin (Neurontin) 300 mg PO BID [facility] Last Admin: 07/03/18 11:48 Dose: Not Given Guaifenesin (Mucinex La) 600 mg PO Q12H [facility] Last Admin: 07/03/18 06:02 Dose: Not Given Heparin Sodium (Porcine) (Heparin) 5,000 units SC Q8H [facility] Hydrocortisone Sodium Succinate (Solu-Cortef) 50 mg IV DAILY [facility] Last Admin: 07/03/18 11:45 Dose: 50 mg Ciprofloxacin (Cipro 400mg/200ml Dsw) 400 mg in 200 mls @ 133 mls/hr IVPB Q12H [facility]; Protocol Last Admin: 07/03/18 05:23 Dose: 133 mls/hr Linezolid (Zyvox 600mg/300ml D5w) 600 mg in 300 mls @ 200 mls/hr IVPB Q12H [facility]; Protocol Last Admin: 07/03/18 00:41 Dose: 200 mls/hr Dextrose/Sodium Chloride (Dextrose 5%/0.45% Ns 1000 Ml) 1,000 mls @ 120 mls/hr IV .Q8H20M [facility] Last Admin: 07/03/18 05:22 Dose: 120 mls/hr Metronidazole (Flagyl) 500 mg in 100 mls @ 100 mls/hr IVPB Q8H [facility]; Protocol Last Admin: 07/03/18 11:47 Dose: 100 mls/hr Potassium Chloride (Potassium Chloride 20 Meq/100 Ml) 20 meq in 100 mls @ 50 ml s/hr IVPB ONCE ONE Stop: 07/03/18 13:59 Last Admin: 07/03/18 12:00 Dose: 50 mls/hr Lactic Acid (Lac-Hydrin 12% Lotion (225 G)) 1 gm EXT BID [facility] Last Admin: 07/03/18 11:46 Dose: 1 applic Ondansetron HCl (Zofran Inj) 4 mg IVP Q6 PRN PRN Reason: Nausea/Vomiting Last Admin: 07/02/18 21:59 Dose: 4 mg Pantoprazole Sodium (Protonix Ec Tab) 40 mg PO DAILY [facility] Last Admin: 07/03/18 11:49 Dose: Not Given Tamsulosin HCl (Flomax) 0.4 mg PO DAILY [facility] Last Admin: 07/03/18 11:46 Dose: Not Given - Labs Labs: 07/02/18 20:22 07/03/18 07:42 PT 13.5 SECONDS (9.7-12.2) H 06/21/18 10:43 INR 1.2 06/21/18 10:43 APTT 29 SECONDS (21-34) 06/21/18 10:43 - Constitutional Appears: Non-toxic - Head Exam Head Exam: ATRAUMATIC, NORMAL INSPECTION, NORMOCEPHALIC - Eye Exam Eye Exam: EOMI, Normal appearance - ENT Exam ENT Exam: Mucous Membranes Dry, Mucous Membranes Moist - Respiratory Exam Respiratory Exam: NORMAL BREATHING PATTERN. absent: Accessory Muscle Use, Resp iratory Distress - Cardiovascular Exam Cardiovascular Exam: RRR. absent: JVD - GI/Abdominal Exam GI & Abdominal Exam: Soft. absent: Rebound Additional comments: Moderate distention. Recurrent Left inguinal hernia reduced. Mild to moderate tenderness to palpation diffusely - Extremities Exam Extremities Exam: Normal Inspection. absent: Calf Tenderness - Neurological Exam Neurological Exam: Alert, Awake, Oriented x3 - Skin Additional comments: Skin diffusely dry and sloughing superficial epidermis Assessment and Plan - Assessment and Plan (Free Text) Assessment: 73yo M with left inguinal hernia and SBO Plan: - Left inguinal hernia reduced - Patient continues to refuse NGT placement. Will attempt again if he is nauseous and/or vomiting. - Continue to monitor left inguinal hernia site for recurrence and reduce as needed - Continue conservative management - Monitor for bowel function Further recs as per Dr. Bharathi Castañeda PGY2 surgery
--- NOTE | 2018-07-03 13:54 | CP.PCM.PN ---
Subjective - Date & Time of Evaluation Date of Evaluation: 07/03/18 Time of Evaluation: 13:52 - Subjective Subjective: CHIEF COMPLAINTS TODAY : Since last night patient has had intermittent vomiting and abdominal cramps CT of the abdomen shows small bowel obstruction with a point of obstruction at inguinal hernia left side. ROS. HEENT : N. Resp : No cough, wheezing ,pleuritic CP ,or hemoptysis Cardio : No anginal CP, PND, orthopnea, palpitation GI : No abd.pain, n/v ,diarrhea or GI bleeding . 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 Musculoskel : No joint swelling , Derm rash all over the body Psych : Normal affect. Ext : No swelling ,calf pain PE. Pt. is alert awake in no distress. V.S As noted in the chart Head ,ear nose,throat and eyes : Normal. Neck : Supple with normal carotids. Lungs: Clear air entry. Heart : S1 & S2 normal with S4. No murmur. Abd : Soft non tender mild distention Neuro : Moves all ext. with no localized deficit. Ext : No edema with intact pulses.Non tender calves Derm : Generalized erythema with exfoliation LABS/RADIOLOGY ASSESSMENT/PLAN : CONT IV AB AND FLUIDS Surgical services has reduced the inguinal hernia again and we will watch clinically if there is any recurrence. Continue IV antibiotics and IV fluids and replenish potassium as needed. Objective - Vital Signs/Intake and Output Vital Signs (last 24 hours): Temp Pulse Resp BP Pulse Ox 97.9 F 87 20 112/53 L 98 07/03/18 07:00 07/03/18 07:00 07/03/18 07:00 07/03/18 07:00 07/03/18 07:00 Intake and Output: 07/03/18 07/03/18 11:59 23:59 Output Total 2 Balance -2 - Medications Medications: Current Medications Al Hydrox/Mg Hydrox/Simethicone (Maalox 30 Ml) 30 ml PO Q4 PRN PRN Reason: Indigestion / Heartburn Last Admin: 06/30/18 18:00 Dose: 30 ml Albuterol/Ipratropium (Duoneb 3 Mg/0.5 Mg (3 Ml) Ud) 3 ml INH RQ6 [facility] Last Admin: 07/03/18 07:33 Dose: Not Given Clotrimazole (Lotrimin 1%) 0 gm TOP BID [facility] Last Admin: 07/03/18 11:48 Dose: 1 appl Emollient Ointment (Vaseline Oint) 30 gm TOP Q6H PRN PRN Reason: Dry skin Last Admin: 07/03/18 11:53 Dose: 30 gm Gabapentin (Neurontin) 300 mg PO BID [facility] Last Admin: 07/03/18 11:48 Dose: Not Given Guaifenesin (Mucinex La) 600 mg PO Q12H [facility] Last Admin: 07/03/18 06:02 Dose: Not Given Heparin Sodium (Porcine) (Heparin) 5,000 units SC Q8 [facility] Last Admin: 07/03/18 13:28 Dose: 5,000 units Hydrocortisone Sodium Succinate (Solu-Cortef) 50 mg IV DAILY [facility] Last Admin: 07/03/18 11:45 Dose: 50 mg Ciprofloxacin (Cipro 400mg/200ml Dsw) 400 mg in 200 mls @ 133 mls/hr IVPB Q12H [facility]; Protocol Last Admin: 07/03/18 05:23 Dose: 133 mls/hr Linezolid (Zyvox 600mg/300ml D5w) 600 mg in 300 mls @ 200 mls/hr IVPB Q12H [facility]; Protocol Last Admin: 07/03/18 13:05 Dose: 200 mls/hr Dextrose/Sodium Chloride (Dextrose 5%/0.45% Ns 1000 Ml) 1,000 mls @ 120 mls/hr IV .Q8H20M [facility] Last Admin: 07/03/18 05:22 Dose: 120 mls/hr Metronidazole (Flagyl) 500 mg in 100 mls @ 100 mls/hr IVPB Q8H [facility]; Protocol Last Admin: 07/03/18 11:47 Dose: 100 mls/hr Potassium Chloride (Potassium Chloride 20 Meq/100 Ml) 20 meq in 100 mls @ 50 mls/hr IVPB ONCE ONE Stop: 07/03/18 13:59 Last Admin: 07/03/18 12:00 Dose: 50 mls/hr Lactic Acid (Lac-Hydrin 12% Lotion (225 G)) 1 gm EXT BID [facility] Last Admin: 07/03/18 11:46 Dose: 1 applic Ondansetron HCl (Zofran Inj) 4 mg IVP Q6 PRN PRN Reason: Nausea/Vomiting Last Admin: 07/02/18 21:59 Dose: 4 mg Pantoprazole Sodium (Protonix Ec Tab) 40 mg PO DAILY [facility] Last Admin: 07/03/18 11:49 Dose: Not Given Tamsulosin HCl (Flomax) 0.4 mg PO DAILY [facility] Last Admin: 07/03/18 11:46 Dose: Not Given - Labs Labs: 07/02/18 20:22 07/03/18 07:42 PT 13.5 SECONDS (9.7-12.2) H 06/21/18 10:43 INR 1.2 06/21/18 10:43 APTT 29 SECONDS (21-34) 06/21/18 10:43
--- NOTE | 2018-07-03 18:20 | CP.PCM.PN ---
Subjective - Date & Time of Evaluation Date of Evaluation: 07/03/18 Time of Evaluation: 18:20 - Subjective Subjective: Subjective: afebrile,AAO c/o nausea/and INTERMITTENT vomiting c/o mild abdominal discomfort PT NPO NOW flat plate of abdomen noted ? SBO CT ABD/PELVISwith IV contrast 07/03/18 Severe small bowel obstruction at the level off left inguinal hernia. Air-fluid levels up to 5 cm.( SEE FULL REPORT. ) ROS. HEENT : N. Resp : No cough, wheezing ,pleuritic CP ,or hemoptysis Cardio : No anginal CP, PND, orthopnea, palpitation GI : No abd.pain, n/v ,diarrhea or GI bleeding . 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 Musculoskel : No joint swelling , Derm rash all over the body Psych : Normal affect. Ext : No swelling ,calf pain PE. Pt. is in no distress. V.S As noted in the chart Head ,ear nose,throat and eyes : Normal.+VE NGT Neck : Supple with normal carotids. Lungs: fair air entry Heart : S1 & S2 normal with S4. No murmur. Abd : Soft mild tenderness epigastric and mid abdomen with HYPOACTIVE bowel sounds. Neuro : Moves all ext. with no localized deficit. Ext : No edema with intact pulses.Non tender calves Derm : Generalized erythema with exfoliation MUCH IMPROVED, SKIN DRYING OFF AND PEELING. LABS/RADIOLOGY: REVIEWED WBC26.1 ? STEROIDS , HEMOGLOBIN 8.2/25.5 pLATELETS ADEQUATE cREATININE 1.2/bun 19. Objective - Vital Signs/Intake and Output Vital Signs (last 24 hours): Temp Pulse Resp BP Pulse Ox 97.5 F L 86 20 121/76 96 07/03/18 16:39 07/03/18 16:39 07/03/18 16:39 07/03/18 16:39 07/03/18 16:39 Intake and Output: 07/03/18 07/03/18 06:59 18:59 Intake Total 1020 960 Output Total 2 Balance 1020 958 - Medications Medications: Current Medications Al Hydrox/Mg Hydrox/Simethicone (Maalox 30 Ml) 30 ml PO Q4 PRN PRN Reason: Indigestion / Heartburn Last Admin: 06/30/18 18:00 Dose: 30 ml Albuterol/Ipratropium (Duoneb 3 Mg/0.5 Mg (3 Ml) Ud) 3 ml INH RQ6 [facility] Last Admin: 07/03/18 13:55 Dose: 3 ml Clotrimazole (Lotrimin 1%) 0 gm TOP BID [facility] Last Admin: 07/03/18 17:14 Dose: 1 appl Emollient Ointment (Vaseline Oint) 30 gm TOP Q6H PRN PRN Reason: Dry skin Last Admin: 07/03/18 11:53 Dose: 30 gm Gabapentin (Neurontin) 300 mg PO BID [facility] Last Admin: 07/03/18 17:09 Dose: Not Given Guaifenesin (Mucinex La) 600 mg PO Q12H [facility] Last Admin: 07/03/18 06:02 Dose: Not Given Heparin Sodium (Porcine) (Heparin) 5,000 units SC Q8 [facility] Last Admin: 07/03/18 13:28 Dose: 5,000 units Hydrocortisone Sodium Succinate (Solu-Cortef) 50 mg IV DAILY [facility] Last Admin: 07/03/18 11:45 Dose: 50 mg Ciprofloxacin (Cipro 400mg/200ml Dsw) 400 mg in 200 mls @ 133 mls/hr IVPB Q12H [facility]; Protocol Last Admin: 07/03/18 17:03 Dose: 133 mls/hr Linezolid (Zyvox 600mg/300ml D5w) 600 mg in 300 mls @ 200 mls/hr IVPB Q12H [facility]; Protocol Last Admin: 07/03/18 13:05 Dose: 200 mls/hr Dextrose/Sodium Chloride (Dextrose 5%/0.45% Ns 1000 Ml) 1,000 mls @ 120 mls/hr IV .Q8H20M [facility] Last Admin: 07/03/18 05:22 Dose: 120 mls/hr Metronidazole (Flagyl) 500 mg in 100 mls @ 100 mls/hr IVPB Q8H [facility]; Protocol Last Admin: 07/03/18 11:47 Dose: 100 mls/hr Lactic Acid (Lac-Hydrin 12% Lotion (225 G)) 1 gm EXT BID [facility] Last Admin: 07/03/18 17:10 Dose: 1 applic Ondansetron HCl (Zofran Inj) 4 mg IVP Q6 PRN PRN Reason: Nausea/Vomiting Last Admin: 07/02/18 21:59 Dose: 4 mg Pantoprazole Sodium (Protonix Ec Tab) 40 mg PO DAILY [facility] Last Admin: 07/03/18 11:49 Dose: Not Given Tamsulosin HCl (Flomax) 0.4 mg PO DAILY [facility] Last Admin: 07/03/18 11:46 Dose: Not Given - Labs Labs: 07/02/18 20:22 07/03/18 07:42 PT 13.5 SECONDS (9.7-12.2) H 06/21/18 10:43 INR 1.2 06/21/18 10:43 APTT 29 SECONDS (21-34) 06/21/18 10:43 Assessment and Plan (1) SBO (small bowel obstruction) Status: Acute (2) Incarcerated left inguinal hernia Status: Acute (3) Pneumonia Status: Acute (4) Leukocytosis Status: Acute (5) Generalized rash Status: Acute (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 discussed with family. Patient has failed conservative methods. Family is anxious to have surgery. We discussed with PMD/rn neurosurgical to discuss with attending FOR FURTHER PLANS. PATIENT NOTHING BY MOUTH FOR NOW. PER INFECTIOUS DISEASE PATIENT IS STABLE,ON ABX SURGERY F/U PT NPO NOW .
--- NOTE | 2018-07-03 23:26 | CP.PCM.PN ---
Subjective - Date & Time of Evaluation Date of Evaluation: 07/03/18 Time of Evaluation: 14:00 - Subjective Subjective: Podiatry Progress Note - Dr. Choi 73 y/o male seen for bilateral fissuring and scaling of plantar feet with attending Dr. Choi . Patient is seen resting comfortably in bed, in NAD. AAox3. Says he has no pain to the feet or lower extremity at present. No other pedal complaints. No calf pain. Denies nausea, fever, shortness of breath, chest pains Objective - Vital Signs/Intake and Output Vital Signs (last 24 hours): Temp Pulse Resp BP Pulse Ox 98 F 82 20 119/78 98 07/03/18 23:20 07/03/18 23:20 07/03/18 23:20 07/03/18 23:20 07/03/18 23:20 Intake and Output: 07/03/18 07/04/18 18:59 06:59 Intake Total 960 1460 Output Total 2 400 Balance 958 1060 - Medications Medications: Current Medications Al Hydrox/Mg Hydrox/Simethicone (Maalox 30 Ml) 30 ml PO Q4 PRN PRN Reason: Indigestion / Heartburn Last Admin: 06/30/18 18:00 Dose: 30 ml Albuterol/Ipratropium (Duoneb 3 Mg/0.5 Mg (3 Ml) Ud) 3 ml INH RQ6 [facility] Last Admin: 07/03/18 20:19 Dose: 3 ml Clotrimazole (Lotrimin 1%) 0 gm TOP BID [facility] Last Admin: 07/03/18 17:14 Dose: 1 appl Emollient Ointment (Vaseline Oint) 30 gm TOP Q6H PRN PRN Reason: Dry skin Last Admin: 07/03/18 11:53 Dose: 30 gm Gabapentin (Neurontin) 300 mg PO BID [facility] Last Admin: 07/03/18 17:09 Dose: Not Given Guaifenesin (Mucinex La) 600 mg PO Q12H [facility] Last Admin: 07/03/18 19:57 Dose: Not Given Heparin Sodium (Porcine) (Heparin) 5,000 units SC Q8 [facility] Last Admin: 07/03/18 13:28 Dose: 5,000 units Hydrocortisone Sodium Succinate (Solu-Cortef) 50 mg IV DAILY [facility] Last Admin: 07/03/18 11:45 Dose: 50 mg Ciprofloxacin (Cipro 400mg/200ml Dsw) 400 mg in 200 mls @ 133 mls/hr IVPB Q12H [facility]; Protocol Last Admin: 07/03/18 17:03 Dose: 133 mls/hr Linezolid (Zyvox 600mg/300ml D5w) 600 mg in 300 mls @ 200 mls/hr IVPB Q12H [facility]; Protocol Last Admin: 07/03/18 13:05 Dose: 200 mls/hr Dextrose/Sodium Chloride (Dextrose 5%/0.45% Ns 1000 Ml) 1,000 mls @ 120 mls/hr IV .Q8H20M [facility] Last Admin: 07/03/18 22:06 Dose: 120 mls/hr Metronidazole (Flagyl) 500 mg in 100 mls @ 100 mls/hr IVPB Q8H [facility]; Protocol Last Admin: 07/03/18 19:57 Dose: 100 mls/hr Lactic Acid (Lac-Hydrin 12% Lotion (225 G)) 1 gm EXT BID [facility] Last Admin: 07/03/18 17:10 Dose: 1 applic Ondansetron HCl (Zofran Inj) 4 mg IVP Q6 PRN PRN Reason: Nausea/Vomiting Last Admin: 07/02/18 21:59 Dose: 4 mg Pantoprazole Sodium (Protonix Ec Tab) 40 mg PO DAILY [facility] Last Admin: 07/03/18 11:49 Dose: Not Given Tamsulosin HCl (Flomax) 0.4 mg PO DAILY [facility] Last Admin: 07/03/18 11:46 Dose: Not Given - Labs Labs: 07/02/18 20:22 07/03/18 07:42 PT 13.5 SECONDS (9.7-12.2) H 06/21/18 10:43 INR 1.2 06/21/18 10:43 APTT 29 SECONDS (21-34) 06/21/18 10:43 - Constitutional Appears: Well, Non-toxic, No Acute Distress - Extremities Exam Extremities Exam: absent: Calf Tenderness Additional comments: Lower extremity focused exam: VASC: DP/PT pulses palpable 2/4 B/L. CFT <3 seconds to all digits. TG warm to warm. Non-pitting edema noted to bilateral LE NEURO: Gross sensation intact B/L DERM: Severe xerosis + diffuse annular scaling present with fissuring throughout plantar aspect of foot B/L. No drainage, no purulence is noted. Mild diffuse erythema noted to bilateral LE. ORTHO: Mild-moderate tenderness on palpation to fissures and scaling of plantar foot B/L. ROM limited 2/2 edema Assessment and Plan - Assessment and Plan (Free Text) Assessment: 73 y/o male with painful fissures and severe bilateral tinea pedis to plantar feet- stable Plan: Patient seen and evaluated with attending Dr. Choi at bedside Clotrimazole cream applied to B/L lower extremities -to be applied by nursing topically BID Feet are clinically improving - plan to continue current treatment Will continue to monitor patient Stable from podiatry standpoint
[2018-07-04] MEDS: Linezolid 600 mg in D5W 300 ml 600 MG/300 ML BAG IVPB SCH ×3 (01:17→14:08)
[2018-07-04] MEDS: metroNIDAZOLE IV 500 mg/100 ml 500 MG/100 ML BAG IVPB SCH ×3 (02:28→19:43)
[2018-07-04] MEDS: Albuterol-Ipratrop 3 mg / 0.5 (3 ml) UD INH SCH ×4 (02:30→20:15)
[2018-07-04] MEDS: Ciprofloxacin 400mg/200ml D5W 400 MG/200 ML BAG IVPB SCH ×2 (05:24→17:45)
[2018-07-04] MEDS: Dextrose 5%/0.45% NS 1,000 ML IV SCH ×3 (05:25→14:15)
[2018-07-04] MEDS: guaiFENesin 600 mg ER Tab PO SCH ×2 (06:47→19:44)
[2018-07-04 08:56] LABS: ALB/GLOB RATIO 0.8 (1.0-2.1); ALBUMIN 2.2 g/dL (3.5-5.0); ALT/SGPT 21 U/L (21-72); BLOOD UREA NITROGEN 13 mg/dL (9-20); CALCIUM 8.3 mg/dl (8.6-10.4); GFR NON-AFRICAN AMERICAN > 60
[2018-07-04 09:04] LABS: AST/SGOT 24 U/L (17-59)
[2018-07-04] MEDS: Pantoprazole 40 mg EC Tab PO SCH (09:15)
[2018-07-04] MEDS: Ammonium Lactate 12% Lotion (225 g) EXT SCH ×2 (09:19→17:53)
[2018-07-04] MEDS: Clotrimazole 1% Cream(30 gm) TOP SCH ×2 (09:19→17:54)
[2018-07-04] MEDS ORDERED: Rocuronium 10 mg/ml (5 ml) ONE (09:53)
[2018-07-04] MEDS ORDERED: Succinylcholine Chloride 20 mg/ml Syr (5 ml) IV ONE (09:53)
[2018-07-04] MEDS ORDERED: Lidocaine Hydrochloride 0 ML INJ ONE (10:10)
[2018-07-04] MEDS ORDERED: ceFAZolin IV 1 gm in Dextrose 0 GM/0 ML BAG IVPB ONE (10:10)
[2018-07-04] MEDS ORDERED: Bupivacaine 0.25% 20 ML INJ IJ ONE ×2 (10:10→12:12)
[2018-07-04] MEDS ORDERED: Bupivacaine HCl 0.5% PF (30 ml) Inj ONE (10:10)
[2018-07-04] MEDS ORDERED: Propofol 10 mg/ml Inj (20 ML) ONE (10:45)
[2018-07-04] MEDS ORDERED: Neostigmine Methylsulfate 3mg/3ml Syringe IV ONE (12:19)
--- NOTE | 2018-07-04 12:42 | CP.PCM.PN ---
Subjective - Date & Time of Evaluation Date of Evaluation: 07/04/18 Time of Evaluation: 12:41 - Subjective Subjective: CHIEF COMPLAINTS TODAY : Since last night patient has had intermittent vomiting and abdominal cramps CT of the abdomen shows small bowel obstruction with a point of obstruction at inguinal hernia left side. ROS. HEENT : N. Resp : No cough, wheezing ,pleuritic CP ,or hemoptysis Cardio : No anginal CP, PND, orthopnea, palpitation GI : No abd.pain, n/v ,diarrhea or GI bleeding . ROASTMASTER : No headache, vertigo, focal deficit. Musculoskel : No joint swelling , Derm rash all over the body Psych : Normal affect. Ext : No swelling ,calf pain PE. Pt. is alert awake in no distress. V.S As noted in the chart Head ,ear nose,throat and eyes : Normal. Neck : Supple with normal carotids. Lungs: Clear air entry. Heart : S1 & S2 normal with S4. No murmur. Abd : Soft non tender mild distention Neuro : Moves all ext. with no localized deficit. Ext : No edema with intact pulses.Non tender calves Derm : Generalized erythema with exfoliation LABS/RADIOLOGY ASSESSMENT/PLAN : CONT IV AB AND FLUIDS discussed with the surgical service. Currently patient is medically cleared for inguinal surgery patient is planned for surgery today Objective - Vital Signs/Intake and Output Vital Signs (last 24 hours): Temp Pulse Resp BP Pulse Ox 98.9 F 102 H 20 110/56 L 100 07/04/18 07:59 07/04/18 07:59 07/04/18 07:59 07/04/18 07:59 07/04/18 07:59 Intake and Output: 07/04/18 07/04/18 11:59 23:59 Intake Total 0 Balance 0 - Medications Medications: Current Medications Al Hydrox/Mg Hydrox/Simethicone (Maalox 30 Ml) 30 ml PO Q4 PRN PRN Reason: Indigestion / Heartburn Last Admin: 06/30/18 18:00 Dose: 30 ml Albuterol/Ipratropium (Duoneb 3 Mg/0.5 Mg (3 Ml) Ud) 3 ml INH RQ6 [facility] Last Admin: 07/04/18 08:11 Dose: 3 ml Clotrimazole (Lotrimin 1%) 0 gm TOP BID [facility] Last Admin: 07/04/18 09:19 Dose: 1 appl Emollient Ointment (Vaseline Oint) 30 gm TOP Q6H PRN PRN Reason: Dry skin Last Admin: 07/03/18 11:53 Dose: 30 gm Gabapentin (Neurontin) 300 mg PO BID [facility] Last Admin: 07/04/18 09:15 Dose: Not Given Guaifenesin (Mucinex La) 600 mg PO Q12H [facility] Last Admin: 07/04/18 06:47 Dose: Not Given Heparin Sodium (Porcine) (Heparin) 5,000 units SC Q8 [facility] Last Admin: 07/04/18 05:24 Dose: 5,000 units Hydrocortisone Sodium Succinate (Solu-Cortef) 50 mg IV DAILY [facility] Last Admin: 07/04/18 09:17 Dose: 50 mg Ciprofloxacin (Cipro 400mg/200ml Dsw) 400 mg in 200 mls @ 133 mls/hr IVPB Q12H [facility]; Protocol Last Admin: 07/04/18 05:24 Dose: 133 mls/hr Linezolid (Zyvox 600mg/300ml D5w) 600 mg in 300 mls @ 200 mls/hr IVPB Q12H [facility]; Protocol Last Admin: 07/04/18 01:17 Dose: 200 mls/hr Dextrose/Sodium Chloride (Dextrose 5%/0.45% Ns 1000 Ml) 1,000 mls @ 120 mls/hr IV .Q8H20M [facility] Last Admin: 07/04/18 05:25 Dose: Not Given Metronidazole (Flagyl) 500 mg in 100 mls @ 100 mls/hr IVPB Q8H [facility]; Protocol Last Admin: 07/04/18 10:13 Dose: 100 mls/hr Lactic Acid (Lac-Hydrin 12% Lotion (225 G)) 1 gm EXT BID [facility] Last Admin: 07/04/18 09:19 Dose: 1 applic Ondansetron HCl (Zofran Inj) 4 mg IVP Q6 PRN PRN Reason: Nausea/Vomiting Last Admin: 07/02/18 21:59 Dose: 4 mg Pantoprazole Sodium (Protonix Ec Tab) 40 mg PO DAILY [facility] Last Admin: 07/04/18 09:15 Dose: Not Given Tamsulosin HCl (Flomax) 0.4 mg PO DAILY [facility] Last Admin: 01/08/19 09:14 Dose: Not Given - Labs Labs: 07/02/18 20:22 07/04/18 07:57 PT 13.5 SECONDS (9.7-12.2) H 06/21/18 10:43 INR 1.2 06/21/18 10:43 APTT 29 SECONDS (21-34) 06/21/18 10:43
[2018-07-04] MEDS ORDERED: HYDROmorphone 0.5 mg/0.5 ml ISec IVP PRN (12:49)
--- NOTE | 2018-07-04 12:52 | PCM.SURG1 ---
Surgeon's Initial Post Op Note - Surgeon's Notes Surgeon: Dr. Garvin Licensing Coordinator: Dr. Castañeda PGY-2, Mary Simmons OMS-III Type of Anesthesia: General Endo, Local Anesthesia Administered By: Dr. Meredith Pre-Operative Diagnosis: Left inguinal hernia, small bowel obstruction Operative Findings: indirect inguinal hernia, reduced. See operative report Post-Operative Diagnosis: Same Operation Performed: Left inguinal hernia repair with mesh Specimen/Specimens Removed: Cord lipoma Estimated Blood Loss: EBL {In ML}: 10 Blood Products Given: N/A Drains Used: No Drains Post-Op Condition: Good Date of Surgery/Procedure: 07/04/18 Time of Surgery/Procedure: 12:52
[2018-07-04] MEDS ORDERED: Potassium Chloride 20 mEq/15 ml LIQ UD PO SCH (13:15)
[2018-07-04] MEDS: Potassium Chloride 20 mEq/15 ml LIQ UD PO SCH (13:30)
[2018-07-04] MEDS ORDERED: Lactated Ringer's 500 ML IV ONE (13:42)
[2018-07-04] MEDS ORDERED: Morphine 4 MG/ML VIAL IVP PRN (14:12)
[2018-07-04] MEDS ORDERED: Oxycodone/Acetaminophen 5/325 mg Tab PO PRN (22:15)
--- NOTE | 2018-07-04 22:19 | CP.PCM.PN ---
Subjective - Date & Time of Evaluation Date of Evaluation: 07/04/18 Time of Evaluation: 22:19 - Subjective Subjective: SEEN POST OPT. VS NOTED. Operative Findings: indirect inguinal hernia, reduced. See operative report Post-Operative Diagnosis: Same Operation Performed: Left inguinal hernia repair with mesh. ROS :NA PE. Pt. is in no distress. V.S As noted in the chart Head ,ear nose,throat and eyes : Normal.+VE NGT Neck : Supple with normal carotids. Lungs: fair air entry Heart : S1 & S2 normal with S4. No murmur. Abd : Soft , POST OPERATIVE Neuro : Moves all ext. with no localized deficit. Ext : No edema with intact pulses.Non tender calves Derm : Generalized erythema with exfoliation MUCH IMPROVED, SKIN DRYING OFF AND PEELING. LABS/RADIOLOGY: REVIEWED Objective - Vital Signs/Intake and Output Vital Signs (last 24 hours): Temp Pulse Resp BP Pulse Ox 97.2 F L 78 20 127/62 97 07/04/18 16:00 07/04/18 16:00 07/04/18 16:00 07/04/18 16:00 07/04/18 16:00 Intake and Output: 07/04/18 07/05/18 18:59 06:59 Intake Total 1000 Balance 1000 - Medications Medications: Current Medications Al Hydrox/Mg Hydrox/Simethicone (Maalox 30 Ml) 30 ml PO Q4 PRN PRN Reason: Indigestion / Heartburn Last Admin: 06/30/18 18:00 Dose: 30 ml Albuterol/Ipratropium (Duoneb 3 Mg/0.5 Mg (3 Ml) Ud) 3 ml INH RQ6 [facility] Last Admin: 07/04/18 20:15 Dose: 3 ml Clotrimazole (Lotrimin 1%) 0 gm TOP BID [facility] Last Admin: 07/04/18 17:54 Dose: 1 appl Emollient Ointment (Vaseline Oint) 30 gm TOP Q6H PRN PRN Reason: Dry skin Last Admin: 07/03/18 11:53 Dose: 30 gm Gabapentin (Neurontin) 300 mg PO BID [facility] Last Admin: 07/04/18 17:52 Dose: Not Given Guaifenesin (Mucinex La) 600 mg PO Q12H [facility] Last Admin: 07/04/18 19:44 Dose: Not Given Heparin Sodium (Porcine) (Heparin) 5,000 units SC Q8 [facility] Last Admin: 07/04/18 21:48 Dose: 5,000 units Hydrocortisone Sodium Succinate (Solu-Cortef) 50 mg IV DAILY [facility] Last Admin: 07/04/18 09:17 Dose: 50 mg Ciprofloxacin (Cipro 400mg/200ml Dsw) 400 mg in 200 mls @ 133 mls/hr IVPB Q12H [facility]; Protocol Last Admin: 07/04/18 17:45 Dose: 133 mls/hr Linezolid (Zyvox 600mg/300ml D5w) 600 mg in 300 mls @ 200 mls/hr IVPB Q12H [facility]; Protocol Last Admin: 07/04/18 14:08 Dose: 200 mls/hr Metronidazole (Flagyl) 500 mg in 100 mls @ 100 mls/hr IVPB Q8H [facility]; Protocol Last Admin: 07/04/18 19:43 Dose: 100 mls/hr Lactic Acid (Lac-Hydrin 12% Lotion (225 G)) 1 gm EXT BID [facility] Last Admin: 07/04/18 17:53 Dose: 1 applic Morphine Sulfate (Morphine) 2 mg IVP Q4 PRN PRN Reason: Pain, moderate (4-7) Ondansetron HCl (Zofran Inj) 4 mg IVP Q6 PRN PRN Reason: Nausea/Vomiting Last Admin: 07/02/18 21:59 Dose: 4 mg Oxycodone/Acetaminophen (Percocet 5/325 Mg Tab) 1 tab PO Q6H PRN PRN Reason: Pain, moderate (4-7) Stop: 07/07/18 22:16 Pantoprazole Sodium (Protonix Ec Tab) 40 mg PO DAILY [facility] Last Admin: 07/04/18 09:15 Dose: Not Given Potassium Chloride (Potassium Chloride Oral Soln) 40 meq PO DAILY [facility] Stop: 07/07/18 23:59 Last Admin: 07/04/18 13:30 Dose: Not Given Tamsulosin HCl (Flomax) 0.4 mg PO DAILY [facility] Last Admin: 07/04/18 09:14 Dose: Not Given - Labs Labs: 07/02/18 20:22 07/04/18 07:57 PT 13.5 SECONDS (9.7-12.2) H 12/26/18 10:43 INR 1.2 06/21/18 10:43 APTT 29 SECONDS (21-34) 06/21/18 10:43 Assessment and Plan (1) Inguinal hernia recurrent unilateral Assessment & Plan: S/P REPAIR LT INGUINAL HERNIA REPAIR W MESH. 07/04/18 Status: Acute (2) SBO (small bowel obstruction) Status: Acute (3) Incarcerated left inguinal hernia Status: Acute (4) Pneumonia Status: Acute (5) Leukocytosis Status: Acute (6) Generalized rash Status: Acute (7) APL (acute promyelocytic leukemia) Status: Acute - Assessment and Plan (Free Text) Plan: PLAN: ON IV CIPRO 400MG IVPB Q12 HRLY 06/25/18 CONTINUE IV FLAGYL 500MG IV Q 8HRLY 06/23/18 ON IV ZYVOX 600MG IVPB TO COVER FOR STREP/STAPH ( GI/SSTI JACKELYN )06/26/18. LWC PER SURGERY. F/U CBC /BMP IN AM
[2018-07-05] MEDS: Linezolid 600 mg in D5W 300 ml 600 MG/300 ML BAG IVPB SCH ×2 (00:52→13:14)
[2018-07-05] MEDS: Albuterol-Ipratrop 3 mg / 0.5 (3 ml) UD INH SCH ×4 (01:55→20:55)
[2018-07-05] MEDS: metroNIDAZOLE IV 500 mg/100 ml 500 MG/100 ML BAG IVPB SCH ×3 (03:03→19:00)
[2018-07-05] MEDS: Ciprofloxacin 400mg/200ml D5W 400 MG/200 ML BAG IVPB SCH ×2 (05:55→17:01)
[2018-07-05] MEDS: guaiFENesin 600 mg ER Tab PO SCH ×2 (06:58→19:00)
[2018-07-05 07:52] LABS: ALB/GLOB RATIO 0.8 (1.0-2.1); ALBUMIN 2.1 g/dL (3.5-5.0); ALT/SGPT 23 U/L (21-72); AST/SGOT 18 U/L (17-59); BLOOD UREA NITROGEN 10 mg/dL (9-20); CALCIUM 8.3 mg/dl (8.6-10.4); GFR NON-AFRICAN AMERICAN > 60
--- NOTE | 2018-07-05 08:09 | CP.PCM.PN ---
Subjective - Date & Time of Evaluation Date of Evaluation: 07/05/18 Time of Evaluation: 06:40 - Subjective Subjective: General Surgery Pt seen and examined. No N/V, afebrile. Complains of sore throat. Tolerated diet, +BM. Objective - Vital Signs/Intake and Output Vital Signs (last 24 hours): Temp Pulse Resp BP Pulse Ox 97.7 F 82 18 113/49 L 98 07/05/18 07:22 07/05/18 07:22 07/05/18 07:22 07/05/18 07:22 07/05/18 07:22 Intake and Output: 07/05/18 07/05/18 06:59 18:59 Intake Total 1100 Output Total 560 Balance 540 - Medications Medications: Current Medications Al Hydrox/Mg Hydrox/Simethicone (Maalox 30 Ml) 30 ml PO Q4 PRN PRN Reason: Indigestion / Heartburn Last Admin: 06/30/18 18:00 Dose: 30 ml Albuterol/Ipratropium (Duoneb 3 Mg/0.5 Mg (3 Ml) Ud) 3 ml INH RQ6 [facility] Last Admin: 07/05/18 01:55 Dose: 3 ml Clotrimazole (Lotrimin 1%) 0 gm TOP BID [facility] Last Admin: 07/04/18 17:54 Dose: 1 appl Emollient Ointment (Vaseline Oint) 30 gm TOP Q6H PRN PRN Reason: Dry skin Last Admin: 07/03/18 11:53 Dose: 30 gm Gabapentin (Neurontin) 300 mg PO BID [facility] Last Admin: 07/04/18 17:52 Dose: Not Given Guaifenesin (Mucinex La) 600 mg PO Q12H [facility] Last Admin: 07/05/18 06:58 Dose: Not Given Heparin Sodium (Porcine) (Heparin) 5,000 units SC Q8 [facility] Last Admin: 07/05/18 05:40 Dose: 5,000 units Hydrocortisone Sodium Succinate (Solu-Cortef) 50 mg IV DAILY [facility] Last Admin: 07/04/18 09:17 Dose: 50 mg Ciprofloxacin (Cipro 400mg/200ml Dsw) 400 mg in 200 mls @ 133 mls/hr IVPB Q12H [facility]; Protocol Last Admin: 07/05/18 05:55 Dose: 133 mls/hr Linezolid (Zyvox 600mg/300ml D5w) 600 mg in 300 mls @ 200 mls/hr IVPB Q12H [facility]; Protocol Last Admin: 07/05/18 00:52 Dose: 200 mls/hr Metronidazole (Flagyl) 500 mg in 100 mls @ 100 mls/hr IVPB Q8H [facility]; Protocol Last Admin: 07/05/18 03:03 Dose: 100 mls/hr Lactic Acid (Lac-Hydrin 12% Lotion (225 G)) 1 gm EXT BID [facility] Last Admin: 07/04/18 17:53 Dose: 1 applic Morphine Sulfate (Morphine) 2 mg IVP Q4 PRN PRN Reason: Pain, moderate (4-7) Last Admin: 07/05/18 01:03 Dose: 2 mg Ondansetron HCl (Zofran Inj) 4 mg IVP Q6 PRN PRN Reason: Nausea/Vomiting Last Admin: 07/02/18 21:59 Dose: 4 mg Oxycodone/Acetaminophen (Percocet 5/325 Mg Tab) 1 tab PO Q6H PRN PRN Reason: Pain, moderate (4-7) Stop: 07/07/18 22:16 Pantoprazole Sodium (Protonix Ec Tab) 40 mg PO DAILY [facility] Last Admin: 07/04/18 09:15 Dose: Not Given Potassium Chloride (Potassium Chloride Oral Soln) 40 meq PO DAILY [facility] Stop: 07/07/18 23:59 Last Admin: 07/04/18 13:30 Dose: Not Given Tamsulosin HCl (Flomax) 0.4 mg PO DAILY [facility] Last Admin: 07/04/18 09:14 Dose: Not Given - Labs Labs: 07/02/18 20:22 07/05/18 07:17 PT 13.5 SECONDS (9.7-12.2) H 06/21/18 10:43 INR 1.2 06/21/18 10:43 APTT 29 SECONDS (21-34) 06/21/18 10:43 - Constitutional Appears: No Acute Distress, Chronically Ill - Head Exam Head Exam: ATRAUMATIC, NORMOCEPHALIC - Eye Exam Eye Exam: EOMI. absent: Periorbital tenderness - Respiratory Exam Respiratory Exam: NORMAL BREATHING PATTERN. absent: Respiratory Distress - GI/Abdominal Exam GI & Abdominal Exam: Soft, Tenderness (around hernia incision). absent: Distended - Neurological Exam Neurological Exam: Alert, Awake - Skin Skin Exam: Dry, Warm Assessment and Plan - Assessment and Plan (Free Text) Assessment: 73M POD#1 s/p L inguinal hernia repair with mesh Plan: Pain control Incentive spirometer. Encouraged OOB to chair/ambulation with PT D/W Dr. Bharathi Ferrari PGY4
[2018-07-05] MEDS ORDERED: Benzocaine/Menthol (Cepacol) Lozenge MT PRN (08:40)
--- NOTE | 2018-07-05 08:59 | OP ---
PROCEDURE DATE: 07/04/2018 PRIMARY SURGEON: Kayleigh Garvin MD EXTRUSION UTILITY WORKER: Yifan Castañeda, PGY-2 SECOND EXTRUSION UTILITY WORKER: Mary Simmons, medical student 3. TYPE OF ANESTHESIA: General and local with Marcaine. ANESTHESIOLOGIST: Dr. Meredith. PREOPERATIVE DIAGNOSIS: Left inguinal hernia, small bowel obstruction. POSTOPERATIVE DIAGNOSIS: Left inguinal hernia. OPERATIVE FINDINGS: Left inguinal hernia, reducible. BLOOD LOSS: 10 mL. SPECIMEN: Cord lipoma. No blood products given. No drains used. POSTOPERATIVE CONDITION: Good. INDICATIONS: The patient is a 73-year-old male who is admitted for small bowel obstruction secondary to left inguinal hernia. He was consented for operative repair and taken to the operating room today. DESCRIPTION OF PROCEDURE: Patient was placed in a supine position and rapid sequence intubation was initiated by the anesthesiologist team. After successful anesthesia with endotracheal intubation, patient's safety check list was performed preoperatively. Patient was already on antibiotics; on Nasalide, Flagyl, and ciprofloxacin. While in the supine position, the left groin was prepped with chlorhexidine and draped in the usual sterile fashion. A #15 scalpel was used to make an oblique skin incision parallel and superior to the inguinal ligament on the left side. The dissection was deepened through the Marin's and [place] fascia after obtaining adequate hemostasis through the layers using electrocautery down to the external oblique aponeurosis. The external oblique aponeurosis was opened in the direction of its fibers using a fresh scalpel. Upon ensuring no extra structures underneath the aponeurosis, a Metzenbaum was used to extend the incision along the fibers to and through the external ring. The ilioinguinal nerve was not identified. The inguinal floor was exposed by creating superior and inferior flaps of the external oblique. The spermatic cord was identified, mobilized at the pubic tubercle and isolated using a Gayathri drain. This was done by dissecting the cremasteric fibers from the cord. A cord lipoma was identified and resected and sent for pathology. The hernia sac was identified and peeled away from the cord. The hernia sac was reduced and a plug mesh was used to place deep within the inguinal canal. The plug was secured using Prolene sutures x3. The patch mesh with a carroll hole was placed and secured to the shelving edge. Upon ensuring no compression on to the cord, a tension free repair was achieved. Throughout the procedure, the vas deferens and the testicular vessels were identified and protected during the remainder of the operation. Prior to reduction, the sac was opened and the contents were reduced into the peritoneal cavity. No redundant sac was excised. The stump of the sac was checked for hemostasis prior to reduction. After placement of the mesh, the floor of the inguinal canal was assessed digitally and an intact repair was to be noted. The [place] drain was removed and the cord itself was returned to its appropriate anatomic location above the mesh in a tension free fashion. Hemostasis was achieved using electrocautery. The external oblique aponeurosis was reapproximated using a continuous 3-0 Vicryl suture paying particular attention to ensure no damage to the ilioinguinal nerve was encountered. The Marin's fascia was closed with three interrupted 3-0 Vicryl sutures. The skin was closed using 4-0 subcuticular continuous monofilament suture. The operative field was cleaned and dried. Dermabond was used over the skin. The testes were gently pulled down into its anatomic position into the scrotum. Two testes were palpable and noted to be in the scrotum. There were no intraoperative complications immediately noted. Estimated blood loss was approximately 10 mL. All instruments and sponge counts were correct. Surgical debriefing was performed, and the patient was extubated and transferred to the PACU in stable condition. Yifan Castañeda DO Kayleigh Garvin MD
[2018-07-05 09:10] LABS: HEMOGLOBIN 6.8 g/dL (12.0-18.0); MEAN CORPUSCULAR HEMOGLOBIN 26.5 pg (27.0-31.0); MEAN CORPUSCULAR HGB CONC 31.2 g/dL (33.0-37.0); MEAN PLATELET VOLUME 8.2 fL (7.2-11.7); RBC 2.57 Mil/uL (4.40-5.90); RED CELL DISTRIBUTION WIDTH 16.2 % (11.5-14.5)
[2018-07-05 09:12] LABS: MEAN CELL VOLUME 84.9 fL (80.0-94.0)
[2018-07-05] MEDS: Pantoprazole 40 mg EC Tab PO SCH (10:28)
[2018-07-05] MEDS: Petrolatum Oint Foilpak (5 gm) TOP PRN (10:45)
[2018-07-05] MEDS: Ammonium Lactate 12% Lotion (225 g) EXT SCH ×2 (10:45→17:04)
[2018-07-05] MEDS: Clotrimazole 1% Cream(30 gm) TOP SCH ×2 (10:46→17:04)
--- NOTE | 2018-07-05 11:36 | CP.PCM.PN ---
Subjective - Date & Time of Evaluation Date of Evaluation: 07/05/18 Time of Evaluation: 11:00 - Subjective Subjective: Has some abdominal pain. For 2U PRBC transfusion today. Objective - Vital Signs/Intake and Output Vital Signs (last 24 hours): Temp Pulse Resp BP Pulse Ox 97.7 F 82 18 113/49 L 98 07/05/18 07:22 07/05/18 07:22 07/05/18 07:22 07/05/18 07:22 07/05/18 07:22 Intake and Output: 07/05/18 07/05/18 06:59 18:59 Intake Total 1100 Output Total 560 Balance 540 - Medications Medications: Current Medications Acetaminophen (Tylenol 325mg Tab) 650 mg PO ONCE PRN PRN Reason: give prior blood transfusion Stop: 07/06/18 10:58 Al Hydrox/Mg Hydrox/Simethicone (Maalox 30 Ml) 30 ml PO Q4 PRN PRN Reason: Indigestion / Heartburn Last Admin: 06/30/18 18:00 Dose: 30 ml Albuterol/Ipratropium (Duoneb 3 Mg/0.5 Mg (3 Ml) Ud) 3 ml INH RQ6 [facility] Last Admin: 07/05/18 08:55 Dose: 3 ml Benzocaine/Menthol (Cepacol Sore Throat) 1 darryl MT Q4H PRN PRN Reason: Sore Throat Clotrimazole (Lotrimin 1%) 0 gm TOP BID [facility] Last Admin: 07/05/18 10:46 Dose: 1 appl Diphenhydramine HCl (Benadryl) 25 mg PO ONCE PRN PRN Reason: give prior blood transfusion Stop: 07/06/18 10:58 Emollient Ointment (Vaseline Oint) 30 gm TOP Q6H PRN PRN Reason: Dry skin Last Admin: 07/05/18 10:45 Dose: 30 gm Gabapentin (Neurontin) 300 mg PO BID [facility] Last Admin: 07/05/18 10:28 Dose: 300 mg Guaifenesin (Mucinex La) 600 mg PO Q12H [facility] Last Admin: 07/05/18 06:58 Dose: Not Given Heparin Sodium (Porcine) (Heparin) 5,000 units SC Q8 [facility] Last Admin: 07/05/18 05:40 Dose: 5,000 units Hydrocortisone Sodium Succinate (Solu-Cortef) 50 mg IV DAILY [facility] Last Admin: 07/05/18 10:29 Dose: 50 mg Ciprofloxacin (Cipro 400mg/200ml Dsw) 400 mg in 200 mls @ 133 mls/hr IVPB Q12H [facility]; Protocol Last Admin: 07/05/18 05:55 Dose: 133 mls/hr Linezolid (Zyvox 600mg/300ml D5w) 600 mg in 300 mls @ 200 mls/hr IVPB Q12H [facility]; Protocol Last Admin: 07/05/18 00:52 Dose: 200 mls/hr Metronidazole (Flagyl) 500 mg in 100 mls @ 100 mls/hr IVPB Q8H [facility]; Protocol Last Admin: 07/05/18 11:07 Dose: 100 mls/hr Potassium Chloride (Potassium Chloride 20 Meq/100 Ml) 20 meq in 100 mls @ 50 mls/hr IVPB Q2H [facility] Stop: 07/05/18 13:59 Last Admin: 07/05/18 10:25 Dose: 50 mls/hr Lactic Acid (Lac-Hydrin 12% Lotion (225 G)) 1 gm EXT BID [facility] Last Admin: 07/05/18 10:45 Dose: 1 applic Morphine Sulfate (Morphine) 2 mg IVP Q4 PRN PRN Reason: Pain, moderate (4-7) Last Admin: 07/05/18 01:03 Dose: 2 mg Ondansetron HCl (Zofran Inj) 4 mg IVP Q6 PRN PRN Reason: Nausea/Vomiting Last Admin: 07/02/18 21:59 Dose: 4 mg Oxycodone/Acetaminophen (Percocet 5/325 Mg Tab) 1 tab PO Q6H PRN PRN Reason: Pain, moderate (4-7) Stop: 07/07/18 22:16 Last Admin: 07/05/18 10:43 Dose: 1 tab Pantoprazole Sodium (Protonix Ec Tab) 40 mg PO DAILY [facility] Last Admin: 07/05/18 10:28 Dose: 40 mg Potassium Chloride (Potassium Chloride Oral Soln) 40 meq PO DAILY [facility] Stop: 07/07/18 23:59 Last Admin: 07/04/18 13:30 Dose: Not Given Tamsulosin HCl (Flomax) 0.4 mg PO DAILY [facility] Last Admin: 07/05/18 10:28 Dose: 0.4 mg - Labs Labs: 07/05/18 09:01 07/05/18 07:17 PT 13.5 SECONDS (9.7-12.2) H 06/21/18 10:43 INR 1.2 06/21/18 10:43 APTT 29 SECONDS (21-34) 06/21/18 10:43 - Head Exam Head Exam: ATRAUMATIC - Eye Exam Eye Exam: Normal appearance - ENT Exam ENT Exam: Mucous Membranes Dry - Respiratory Exam Respiratory Exam: NORMAL BREATHING PATTERN - Cardiovascular Exam Cardiovascular Exam: +S1, +S2 - GI/Abdominal Exam GI & Abdominal Exam: Normal Bowel Sounds Assessment and Plan (1) Leukocytosis Assessment & Plan: chronic flow cytometery suggests reactive leukocytosis awaiting PCR on tcell population Status: Acute (2) Anemia Assessment & Plan: chronic disease mild surgical blood loss 2U PRBC today Status: Acute (3) APL (acute promyelocytic leukemia) Assessment & Plan: in remission by flow cytometery Status: Acute
--- NOTE | 2018-07-05 11:40 | CP.PCM.PN ---
Subjective - Date & Time of Evaluation Date of Evaluation: 07/05/18 Time of Evaluation: 11:38 - Subjective Subjective: CHIEF COMPLAINTS TODAY : S/P L INGUINAL SURGERY ROS. HEENT : N. Resp : No cough, wheezing ,pleuritic CP ,or hemoptysis Cardio : No anginal CP, PND, orthopnea, palpitation GI : No abd.pain, n/v ,diarrhea or GI bleeding . ICE GRINDER : No headache, vertigo, focal deficit. Musculoskel : No joint swelling , Derm rash all over the body Psych : Normal affect. Ext : No swelling ,calf pain PE. Pt. is alert awake in no distress. V.S As noted in the chart Head ,ear nose,throat and eyes : Normal. Neck : Supple with normal carotids. Lungs: Clear air entry. Heart : S1 & S2 normal with S4. No murmur. Abd : Soft non tender mild distention Neuro : Moves all ext. with no localized deficit. Ext : No edema with intact pulses.Non tender calves Derm : Generalized erythema with exfoliation LABS/RADIOLOGY ASSESSMENT/PLAN : CONT IV AB AND FLUIDS H/H 6.8, TO RECEIVE 2 PC Objective - Vital Signs/Intake and Output Vital Signs (last 24 hours): Temp Pulse Resp BP Pulse Ox 97.7 F 82 18 113/49 L 98 07/05/18 07:22 07/05/18 07:22 07/05/18 07:22 07/05/18 07:22 07/05/18 07:22 Intake and Output: 07/04/18 07/05/18 23:59 11:59 Intake Total 700 500 Output Total 210 350 Balance 490 150 - Medications Medications: Current Medications Acetaminophen (Tylenol 325mg Tab) 650 mg PO ONCE PRN PRN Reason: give prior blood transfusion Stop: 07/06/18 10:58 Al Hydrox/Mg Hydrox/Simethicone (Maalox 30 Ml) 30 ml PO Q4 PRN PRN Reason: Indigestion / Heartburn Last Admin: 06/30/18 18:00 Dose: 30 ml Albuterol/Ipratropium (Duoneb 3 Mg/0.5 Mg (3 Ml) Ud) 3 ml INH RQ6 [facility] Last Admin: 07/05/18 08:55 Dose: 3 ml Benzocaine/Menthol (Cepacol Sore Throat) 1 darryl MT Q4H PRN PRN Reason: Sore Throat Clotrimazole (Lotrimin 1%) 0 gm TOP BID [facility] Last Admin: 07/05/18 10:46 Dose: 1 appl Diphenhydramine HCl (Benadryl) 25 mg PO ONCE PRN PRN Reason: give prior blood transfusion Stop: 07/06/18 10:58 Emollient Ointment (Vaseline Oint) 30 gm TOP Q6H PRN PRN Reason: Dry skin Last Admin: 07/05/18 10:45 Dose: 30 gm Gabapentin (Neurontin) 300 mg PO BID [facility] Last Admin: 07/05/18 10:28 Dose: 300 mg Guaifenesin (Mucinex La) 600 mg PO Q12H [facility] Last Admin: 07/05/18 06:58 Dose: Not Given Heparin Sodium (Porcine) (Heparin) 5,000 units SC Q8 [facility] Last Admin: 07/05/18 05:40 Dose: 5,000 units Hydrocortisone Sodium Succinate (Solu-Cortef) 50 mg IV DAILY [facility] Last Admin: 07/05/18 10:29 Dose: 50 mg Ciprofloxacin (Cipro 400mg/200ml Dsw) 400 mg in 200 mls @ 133 mls/hr IVPB Q12H [facility]; Protocol Last Admin: 07/05/18 05:55 Dose: 133 mls/hr Linezolid (Zyvox 600mg/300ml D5w) 600 mg in 300 mls @ 200 mls/hr IVPB Q12H [facility]; Protocol Last Admin: 07/05/18 00:52 Dose: 200 mls/hr Metronidazole (Flagyl) 500 mg in 100 mls @ 100 mls/hr IVPB Q8H [facility]; Protocol Last Admin: 07/05/18 11:07 Dose: 100 mls/hr Potassium Chloride (Potassium Chloride 20 Meq/100 Ml) 20 meq in 100 mls @ 50 mls/hr IVPB Q2H [facility] Stop: 07/05/18 13:59 Last Admin: 07/05/18 10:25 Dose: 50 mls/hr Lactic Acid (Lac-Hydrin 12% Lotion (225 G)) 1 gm EXT BID [facility] Last Admin: 07/05/18 10:45 Dose: 1 applic Morphine Sulfate (Morphine) 2 mg IVP Q4 PRN PRN Reason: Pain, moderate (4-7) Last Admin: 07/05/18 01:03 Dose: 2 mg Ondansetron HCl (Zofran Inj) 4 mg IVP Q6 PRN PRN Reason: Nausea/Vomiting Last Admin: 07/02/18 21:59 Dose: 4 mg Oxycodone/Acetaminophen (Percocet 5/325 Mg Tab) 1 tab PO Q6H PRN PRN Reason: Pain, moderate (4-7) Stop: 07/07/18 22:16 Last Admin: 07/05/18 10:43 Dose: 1 tab Pantoprazole Sodium (Protonix Ec Tab) 40 mg PO DAILY [facility] Last Admin: 07/05/18 10:28 Dose: 40 mg Potassium Chloride (Potassium Chloride Oral Soln) 40 meq PO DAILY [facility] Stop: 07/07/18 23:59 Last Admin: 07/04/18 13:30 Dose: Not Given Tamsulosin HCl (Flomax) 0.4 mg PO DAILY [facility] Last Admin: 07/05/18 10:28 Dose: 0.4 mg - Labs Labs: 07/05/18 09:01 07/05/18 07:17 PT 13.5 SECONDS (9.7-12.2) H 06/21/18 10:43 INR 1.2 06/21/18 10:43 APTT 29 SECONDS (21-34) 06/21/18 10:43
--- NOTE | 2018-07-05 12:10 | CP.PCM.PN ---
Subjective - Date & Time of Evaluation Date of Evaluation: 07/05/18 Time of Evaluation: 12:10 - Subjective Subjective: POD # 1 VS NOTED. AAO. FEELS OK. TRYING TO EAT H/H LOW ON PRBC TRANSFUSION -2 UNITS TODAY PER HEMATOLOGY Operation Performed: Left inguinal hernia repair with mesh.07/04/18 ROS ; DENIES ABDOMINAL PAIN,N/V LUNG; C/O CONGESTION POST OPTIVE SITE PAIN PE. Pt. is in no distress. V.S As noted in the chart Head ,ear nose,throat and eyes : Normal.+VE NGT Neck : Supple with normal carotids. Lungs: fair air entry Heart : S1 & S2 normal with S4. No murmur. Abd : Soft , POST OPERATIVE Neuro : Moves all ext. with no localized deficit. Ext : No edema with intact pulses.Non tender calves .LT.POST OPERTIVE GROIN SUTURE-LINE OK. Derm : Generalized erythema with exfoliation MUCH IMPROVED, SKIN DRYING OFF AND PEELING. LABS/RADIOLOGY: REVIEWED Objective - Vital Signs/Intake and Output Vital Signs (last 24 hours): Temp Pulse Resp BP Pulse Ox 97.7 F 82 18 113/49 L 98 07/05/18 07:22 07/05/18 07:22 07/05/18 07:22 07/05/18 07:22 07/05/18 07:22 Intake and Output: 07/05/18 07/05/18 06:59 18:59 Intake Total 1100 Output Total 560 Balance 540 - Medications Medications: Current Medications Acetaminophen (Tylenol 325mg Tab) 650 mg PO ONCE PRN PRN Reason: give prior blood transfusion Stop: 07/06/18 10:58 Al Hydrox/Mg Hydrox/Simethicone (Maalox 30 Ml) 30 ml PO Q4 PRN PRN Reason: Indigestion / Heartburn Last Admin: 06/30/18 18:00 Dose: 30 ml Albuterol/Ipratropium (Duoneb 3 Mg/0.5 Mg (3 Ml) Ud) 3 ml INH RQ6 [facility] Last Admin: 07/05/18 08:55 Dose: 3 ml Benzocaine/Menthol (Cepacol Sore Throat) 1 darryl MT Q4H PRN PRN Reason: Sore Throat Clotrimazole (Lotrimin 1%) 0 gm TOP BID [facility] Last Admin: 07/05/18 10:46 Dose: 1 appl Diphenhydramine HCl (Benadryl) 25 mg PO ONCE PRN PRN Reason: give prior blood transfusion Stop: 07/06/18 10:58 Emollient Ointment (Vaseline Oint) 30 gm TOP Q6H PRN PRN Reason: Dry skin Last Admin: 07/05/18 10:45 Dose: 30 gm Gabapentin (Neurontin) 300 mg PO BID [facility] Last Admin: 07/05/18 10:28 Dose: 300 mg Guaifenesin (Mucinex La) 600 mg PO Q12H [facility] Last Admin: 07/05/18 06:58 Dose: Not Given Heparin Sodium (Porcine) (Heparin) 5,000 units SC Q8 [facility] Last Admin: 07/05/18 05:40 Dose: 5,000 units Hydrocortisone Sodium Succinate (Solu-Cortef) 50 mg IV DAILY [facility] Last Admin: 07/05/18 10:29 Dose: 50 mg Ciprofloxacin (Cipro 400mg/200ml Dsw) 400 mg in 200 mls @ 133 mls/hr IVPB Q12H [facility]; Protocol Last Admin: 07/05/18 05:55 Dose: 133 mls/hr Linezolid (Zyvox 600mg/300ml D5w) 600 mg in 300 mls @ 200 mls/hr IVPB Q12H [facility]; Protocol Last Admin: 07/05/18 00:52 Dose: 200 mls/hr Metronidazole (Flagyl) 500 mg in 100 mls @ 100 mls/hr IVPB Q8H [facility]; Protocol Last Admin: 07/05/18 11:07 Dose: 100 mls/hr Potassium Chloride (Potassium Chloride 20 Meq/100 Ml) 20 meq in 100 mls @ 50 mls/hr IVPB Q2H [facility] Stop: 07/05/18 13:59 Last Admin: 07/05/18 10:25 Dose: 50 mls/hr Lactic Acid (Lac-Hydrin 12% Lotion (225 G)) 1 gm EXT BID [facility] Last Admin: 07/05/18 10:45 Dose: 1 applic Morphine Sulfate (Morphine) 2 mg IVP Q4 PRN PRN Reason: Pain, moderate (4-7) Last Admin: 07/05/18 01:03 Dose: 2 mg Ondansetron HCl (Zofran Inj) 4 mg IVP Q6 PRN PRN Reason: Nausea/Vomiting Last Admin: 07/02/18 21:59 Dose: 4 mg Oxycodone/Acetaminophen (Percocet 5/325 Mg Tab) 1 tab PO Q6H PRN PRN Reason: Pain, moderate (4-7) Stop: 07/07/18 22:16 Last Admin: 07/05/18 10:43 Dose: 1 tab Pantoprazole Sodium (Protonix Ec Tab) 40 mg PO DAILY [facility] Last Admin: 07/05/18 10:28 Dose: 40 mg Potassium Chloride (Potassium Chloride Oral Soln) 40 meq PO DAILY [facility] Stop: 07/07/18 23:59 Last Admin: 07/04/18 13:30 Dose: Not Given Tamsulosin HCl (Flomax) 0.4 mg PO DAILY [facility] Last Admin: 07/05/18 10:28 Dose: 0.4 mg - Labs Labs: 07/05/18 09:01 07/05/18 07:17 PT 13.5 SECONDS (9.7-12.2) H 06/21/18 10:43 INR 1.2 06/21/18 10:43 APTT 29 SECONDS (21-34) 06/21/18 10:43 Assessment and Plan (1) Inguinal hernia recurrent unilateral Status: Acute (2) SBO (small bowel obstruction) Status: Acute (3) Incarcerated left inguinal hernia Status: Acute (4) Pneumonia Status: Acute (5) Leukocytosis Status: Acute (6) Generalized rash Status: Acute (7) APL (acute promyelocytic leukemia) Status: Acute - Assessment and Plan (Free Text) Plan: PLAN: ON IV CIPRO 400MG IVPB Q12 [facility] 06/25/18 CONTINUE IV FLAGYL 500MG IV Q 8HRLY 06/23/18 DC IV ZYVOX IN VIEW OF DECREASING H/H. LWC PER SURGERY. F/U CBC /BMP IN AM
--- NOTE | 2018-07-05 13:08 | CP.PCM.PN ---
Subjective - Date & Time of Evaluation Date of Evaluation: 07/05/18 Time of Evaluation: 13:06 - Subjective Subjective: s/p left inguinal hernia repair for 2 units prbcs blood transfusion K still low- to be repleted renal function stable Objective - Vital Signs/Intake and Output Vital Signs (last 24 hours): Temp Pulse Resp BP Pulse Ox 97.7 F 82 18 113/49 L 98 07/05/18 07:22 07/05/18 07:22 07/05/18 07:22 07/05/18 07:22 07/05/18 07:22 Intake and Output: 07/05/18 07/05/18 06:59 18:59 Intake Total 1100 Output Total 560 Balance 540 - Medications Medications: Current Medications Acetaminophen (Tylenol 325mg Tab) 650 mg PO ONCE PRN PRN Reason: give prior blood transfusion Stop: 07/06/18 10:58 Al Hydrox/Mg Hydrox/Simethicone (Maalox 30 Ml) 30 ml PO Q4 PRN PRN Reason: Indigestion / Heartburn Last Admin: 06/30/18 18:00 Dose: 30 ml Albuterol/Ipratropium (Duoneb 3 Mg/0.5 Mg (3 Ml) Ud) 3 ml INH RQ6 [facility] Last Admin: 07/05/18 08:55 Dose: 3 ml Benzocaine/Menthol (Cepacol Sore Throat) 1 darryl MT Q4H PRN PRN Reason: Sore Throat Clotrimazole (Lotrimin 1%) 0 gm TOP BID [facility] Last Admin: 07/05/18 10:46 Dose: 1 appl Diphenhydramine HCl (Benadryl) 25 mg PO ONCE PRN PRN Reason: give prior blood transfusion Stop: 07/06/18 10:58 Emollient Ointment (Vaseline Oint) 30 gm TOP Q6H PRN PRN Reason: Dry skin Last Admin: 07/05/18 10:45 Dose: 30 gm Gabapentin (Neurontin) 300 mg PO BID [facility] Last Admin: 07/05/18 10:28 Dose: 300 mg Guaifenesin (Mucinex La) 600 mg PO Q12H [facility] Last Admin: 07/05/18 06:58 Dose: Not Given Heparin Sodium (Porcine) (Heparin) 5,000 units SC Q8 [facility] Last Admin: 07/05/18 05:40 Dose: 5,000 units Hydrocortisone Sodium Succinate (Solu-Cortef) 50 mg IV DAILY [facility] Last Admin: 07/05/18 10:29 Dose: 50 mg Ciprofloxacin (Cipro 400mg/200ml Dsw) 400 mg in 200 mls @ 133 mls/hr IVPB Q12H [facility]; Protocol Last Admin: 07/05/18 05:55 Dose: 133 mls/hr Linezolid (Zyvox 600mg/300ml D5w) 600 mg in 300 mls @ 200 mls/hr IVPB Q12H [facility]; Protocol Last Admin: 07/05/18 00:52 Dose: 200 mls/hr Metronidazole (Flagyl) 500 mg in 100 mls @ 100 mls/hr IVPB Q8H [facility]; Protocol Last Admin: 07/05/18 11:07 Dose: 100 mls/hr Potassium Chloride (Potassium Chloride 20 Meq/100 Ml) 20 meq in 100 mls @ 50 mls/hr IVPB Q2H [facility] Stop: 07/05/18 13:59 Last Admin: 07/05/18 13:02 Dose: 50 mls/hr Lactic Acid (Lac-Hydrin 12% Lotion (225 G)) 1 gm EXT BID [facility] Last Admin: 07/05/18 10:45 Dose: 1 applic Morphine Sulfate (Morphine) 2 mg IVP Q4 PRN PRN Reason: Pain, moderate (4-7) Last Admin: 07/05/18 01:03 Dose: 2 mg Ondansetron HCl (Zofran Inj) 4 mg IVP Q6 PRN PRN Reason: Nausea/Vomiting Last Admin: 07/02/18 21:59 Dose: 4 mg Oxycodone/Acetaminophen (Percocet 5/325 Mg Tab) 1 tab PO Q6H PRN PRN Reason: Pain, moderate (4-7) Stop: 07/07/18 22:16 Last Admin: 07/05/18 10:43 Dose: 1 tab Pantoprazole Sodium (Protonix Ec Tab) 40 mg PO DAILY [facility] Last Admin: 07/05/18 10:28 Dose: 40 mg Potassium Chloride (Potassium Chloride Oral Soln) 40 meq PO DAILY [facility] Stop: 07/07/18 23:59 Last Admin: 07/04/18 13:30 Dose: Not Given Tamsulosin HCl (Flomax) 0.4 mg PO DAILY [facility] Last Admin: 07/05/18 10:28 Dose: 0.4 mg - Labs Labs: 07/05/18 09:01 07/05/18 07:17 PT 13.5 SECONDS (9.7-12.2) H 06/21/18 10:43 INR 1.2 06/21/18 10:43 APTT 29 SECONDS (21-34) 06/21/18 10:43 - Constitutional Appears: Non-toxic, No Acute Distress, Chronically Ill - Head Exam Head Exam: ATRAUMATIC, NORMAL INSPECTION - Eye Exam Eye Exam: EOMI, Normal appearance - Neck Exam Neck Exam: Normal Inspection. absent: Tenderness - Respiratory Exam Respiratory Exam: Clear to Ausculation Bilateral, NORMAL BREATHING PATTERN - Cardiovascular Exam Cardiovascular Exam: REGULAR RHYTHM, +S1 - GI/Abdominal Exam GI & Abdominal Exam: Soft. absent: Tenderness - Extremities Exam Extremities Exam: Normal Inspection. absent: Tenderness - Neurological Exam Neurological Exam: Awake, CN II-XII Intact - Skin Skin Exam: Dry, Warm Assessment and Plan (1) APL (acute promyelocytic leukemia) Status: Acute (2) Pneumonia Status: Acute (3) VIOLETTE (acute kidney injury) Status: Resolved (4) Pneumonia Status: Acute (5) Mullins-Ildefonso disease Status: Acute - Assessment and Plan (Free Text) Plan: continue to monitor lytes closely, replete as needed
[2018-07-05] MEDS: Potassium Chloride 20 mEq/15 ml LIQ UD PO SCH (13:25)
--- NOTE | 2018-07-05 23:25 | CP.PCM.PN ---
Subjective - Date & Time of Evaluation Date of Evaluation: 07/04/18 Time of Evaluation: 19:00 - Subjective Subjective: S/p hernia repair Objective - Vital Signs/Intake and Output Vital Signs (last 24 hours): Temp Pulse Resp BP Pulse Ox 98.2 F 89 20 118/76 97 07/05/18 23:20 07/05/18 23:20 07/05/18 23:20 07/05/18 23:20 07/05/18 23:20 Intake and Output: 07/05/18 07/06/18 18:59 06:59 Intake Total 800 715 Output Total 950 Balance 800 -235 - Medications Medications: Current Medications Acetaminophen (Tylenol 325mg Tab) 650 mg PO ONCE PRN PRN Reason: give prior blood transfusion Stop: 07/06/18 10:58 Last Admin: 07/05/18 16:25 Dose: 650 mg Al Hydrox/Mg Hydrox/Simethicone (Maalox 30 Ml) 30 ml PO Q4 PRN PRN Reason: Indigestion / Heartburn Last Admin: 06/30/18 18:00 Dose: 30 ml Albuterol/Ipratropium (Duoneb 3 Mg/0.5 Mg (3 Ml) Ud) 3 ml INH RQ6 [facility]S [facility] 234 BEDS AT [facility] Last Admin: 07/05/18 20:55 Dose: 3 ml Benzocaine/Menthol (Cepacol Sore Throat) 1 darryl MT Q4H PRN PRN Reason: Sore Throat Clotrimazole (Lotrimin 1%) 0 gm TOP BID COUNTS INCLUDE 234 BEDS AT [facility] Last Admin: 07/05/18 17:04 Dose: 1 appl Diphenhydramine HCl (Benadryl) 25 mg PO ONCE PRN PRN Reason: give prior blood transfusion Stop: 07/06/18 10:58 Last Admin: 07/05/18 16:25 Dose: 25 mg Emollient Ointment (Vaseline Oint) 30 gm TOP Q6H PRN PRN Reason: Dry skin Last Admin: 07/05/18 10:45 Dose: 30 gm Gabapentin (Neurontin) 300 mg PO BID [facility]CLUDE 234 BEDS AT [facility] Last Admin: 07/05/18 17:07 Dose: 300 mg Guaifenesin (Mucinex La) 600 mg PO Q12H [facility]S INCLUDE 234 BEDS AT [facility] Last Admin: 07/05/18 19:00 Dose: 600 mg Heparin Sodium (Porcine) (Heparin) 5,000 units SC Q8 [facility]S INCLUDE 234 BEDS AT [facility] Last Admin: 07/05/18 21:58 Dose: 5,000 units Hydrocortisone Sodium Succinate (Solu-Cortef) 50 mg IV DAILY [facility]CLUDE 234 BEDS AT [facility] Last Admin: 07/05/18 10:29 Dose: 50 mg Ciprofloxacin (Cipro 400mg/200ml Dsw) 400 mg in 200 mls @ 133 mls/hr IVPB Q12H [facility]; Protocol Last Admin: 07/05/18 17:01 Dose: 133 mls/hr Linezolid (Zyvox 600mg/300ml D5w) 600 mg in 300 mls @ 200 mls/hr IVPB Q12H [facility]; Protocol Last Admin: 07/05/18 13:14 Dose: 200 mls/hr Metronidazole (Flagyl) 500 mg in 100 mls @ 100 mls/hr IVPB Q8H [facility]; Protocol Last Admin: 07/05/18 19:00 Dose: 100 mls/hr Lactic Acid (Lac-Hydrin 12% Lotion (225 G)) 1 gm EXT BID [facility]CLUDE 234 BEDS AT [facility] Last Admin: 07/05/18 17:04 Dose: 1 applic Morphine Sulfate (Morphine) 2 mg IVP Q4 PRN PRN Reason: Pain, moderate (4-7) Last Admin: 07/05/18 01:03 Dose: 2 mg Ondansetron HCl (Zofran Inj) 4 mg IVP Q6 PRN PRN Reason: Nausea/Vomiting Last Admin: 07/02/18 21:59 Dose: 4 mg Oxycodone/Acetaminophen (Percocet 5/325 Mg Tab) 1 tab PO Q6H PRN PRN Reason: Pain, moderate (4-7) Stop: 07/07/18 22:16 Last Admin: 07/05/18 10:43 Dose: 1 tab Pantoprazole Sodium (Protonix Ec Tab) 40 mg PO DAILY [facility] 234 BEDS AT [facility] Last Admin: 07/05/18 10:28 Dose: 40 mg Potassium Chloride (Potassium Chloride Oral Soln) 40 meq PO DAILY [facility] 234 BEDS AT [facility] Stop: 07/07/18 23:59 Last Admin: 07/05/18 13:25 Dose: 40 meq Potassium Phos/Sodium Phos (Neutra-Phos) 1 pkt PO DAILY [facility] 234 BEDS AT [facility] Tamsulosin HCl (Flomax) 0.4 mg PO DAILY [facility] 234 BEDS AT [facility] Last Admin: 07/05/18 10:28 Dose: 0.4 mg - Labs Labs: 07/05/18 09:01 07/05/18 07:17 PT 13.5 SECONDS (9.7-12.2) H 06/21/18 10:43 INR 1.2 06/21/18 10:43 APTT 29 SECONDS (21-34) 06/21/18 10:43 - Head Exam Head Exam: ATRAUMATIC - Eye Exam Eye Exam: Normal appearance - ENT Exam ENT Exam: Mucous Membranes Dry - Respiratory Exam Respiratory Exam: NORMAL BREATHING PATTERN - Cardiovascular Exam Cardiovascular Exam: +S1, +S2 - GI/Abdominal Exam GI & Abdominal Exam: Normal Bowel Sounds Assessment and Plan (1) Leukocytosis Assessment & Plan: chronic reactive per flow cytometery Status: Acute (2) Anemia Assessment & Plan: chronic disease Status: Acute (3) APL (acute promyelocytic leukemia) Assessment & Plan: in remission by flow cytometery Status: Acute
--- NOTE | 2018-07-05 23:27 | CP.PCM.PN ---
Subjective - Date & Time of Evaluation Date of Evaluation: 07/03/18 Time of Evaluation: 19:00 - Subjective Subjective: Cont. to have N/V Objective - Vital Signs/Intake and Output Vital Signs (last 24 hours): Temp Pulse Resp BP Pulse Ox 98.2 F 89 20 118/76 97 07/05/18 23:20 07/05/18 23:20 07/05/18 23:20 07/05/18 23:20 07/05/18 23:20 Intake and Output: 07/05/18 07/06/18 18:59 06:59 Intake Total 800 715 Output Total 950 Balance 800 -235 - Medications Medications: Current Medications Acetaminophen (Tylenol 325mg Tab) 650 mg PO ONCE PRN PRN Reason: give prior blood transfusion Stop: 07/06/18 10:58 Last Admin: 07/05/18 16:25 Dose: 650 mg Al Hydrox/Mg Hydrox/Simethicone (Maalox 30 Ml) 30 ml PO Q4 PRN PRN Reason: Indigestion / Heartburn Last Admin: 06/30/18 18:00 Dose: 30 ml Albuterol/Ipratropium (Duoneb 3 Mg/0.5 Mg (3 Ml) Ud) 3 ml INH RQ6 [facility] Last Admin: 07/05/18 20:55 Dose: 3 ml Benzocaine/Menthol (Cepacol Sore Throat) 1 darryl MT Q4H PRN PRN Reason: Sore Throat Clotrimazole (Lotrimin 1%) 0 gm TOP BID [facility] Last Admin: 07/05/18 17:04 Dose: 1 appl Diphenhydramine HCl (Benadryl) 25 mg PO ONCE PRN PRN Reason: give prior blood transfusion Stop: 07/06/18 10:58 Last Admin: 07/05/18 16:25 Dose: 25 mg Emollient Ointment (Vaseline Oint) 30 gm TOP Q6H PRN PRN Reason: Dry skin Last Admin: 07/05/18 10:45 Dose: 30 gm Gabapentin (Neurontin) 300 mg PO BID [facility] Last Admin: 07/05/18 17:07 Dose: 300 mg Guaifenesin (Mucinex La) 600 mg PO Q12H [facility] Last Admin: 07/05/18 19:00 Dose: 600 mg Heparin Sodium (Porcine) (Heparin) 5,000 units SC Q8 [facility] Last Admin: 07/05/18 21:58 Dose: 5,000 units Hydrocortisone Sodium Succinate (Solu-Cortef) 50 mg IV DAILY [facility] Last Admin: 07/05/18 10:29 Dose: 50 mg Ciprofloxacin (Cipro 400mg/200ml Dsw) 400 mg in 200 mls @ 133 mls/hr IVPB Q12H [facility]; Protocol Last Admin: 07/05/18 17:01 Dose: 133 mls/hr Linezolid (Zyvox 600mg/300ml D5w) 600 mg in 300 mls @ 200 mls/hr IVPB Q12H [facility]; Protocol Last Admin: 07/05/18 13:14 Dose: 200 mls/hr Metronidazole (Flagyl) 500 mg in 100 mls @ 100 mls/hr IVPB Q8H [facility]; Protocol Last Admin: 07/05/18 19:00 Dose: 100 mls/hr Lactic Acid (Lac-Hydrin 12% Lotion (225 G)) 1 gm EXT BID [facility] Last Admin: 07/05/18 17:04 Dose: 1 applic Morphine Sulfate (Morphine) 2 mg IVP Q4 PRN PRN Reason: Pain, moderate (4-7) Last Admin: 07/05/18 01:03 Dose: 2 mg Ondansetron HCl (Zofran Inj) 4 mg IVP Q6 PRN PRN Reason: Nausea/Vomiting Last Admin: 07/02/18 21:59 Dose: 4 mg Oxycodone/Acetaminophen (Percocet 5/325 Mg Tab) 1 tab PO Q6H PRN PRN Reason: Pain, moderate (4-7) Stop: 07/07/18 22:16 Last Admin: 07/05/18 10:43 Dose: 1 tab Pantoprazole Sodium (Protonix Ec Tab) 40 mg PO DAILY [facility] Last Admin: 07/05/18 10:28 Dose: 40 mg Potassium Chloride (Potassium Chloride Oral Soln) 40 meq PO DAILY [facility] Stop: 07/07/18 23:59 Last Admin: 07/05/18 13:25 Dose: 40 meq Potassium Phos/Sodium Phos (Neutra-Phos) 1 pkt PO DAILY [facility] Tamsulosin HCl (Flomax) 0.4 mg PO DAILY [facility] Last Admin: 07/05/18 10:28 Dose: 0.4 mg - Labs Labs: 07/05/18 09:01 07/05/18 07:17 PT 13.5 SECONDS (9.7-12.2) H 06/21/18 10:43 INR 1.2 06/21/18 10:43 APTT 29 SECONDS (21-34) 06/21/18 10:43 - Head Exam Head Exam: ATRAUMATIC - Eye Exam Eye Exam: Normal appearance - ENT Exam ENT Exam: Mucous Membranes Dry - Respiratory Exam Respiratory Exam: NORMAL BREATHING PATTERN - Cardiovascular Exam Cardiovascular Exam: +S1, +S2 - GI/Abdominal Exam GI & Abdominal Exam: Normal Bowel Sounds Assessment and Plan (1) Leukocytosis Assessment & Plan: chronic reactive Status: Acute (2) Anemia Assessment & Plan: chronic disease Status: Acute (3) APL (acute promyelocytic leukemia) Assessment & Plan: in remission Status: Acute
[2018-07-06] MEDS: Albuterol-Ipratrop 3 mg / 0.5 (3 ml) UD INH SCH ×2 (01:12→08:24)
[2018-07-06] MEDS: metroNIDAZOLE IV 500 mg/100 ml 500 MG/100 ML BAG IVPB SCH ×3 (02:00→18:02)
[2018-07-06] MEDS: Ciprofloxacin 400mg/200ml D5W 400 MG/200 ML BAG IVPB SCH ×2 (05:15→17:32)
[2018-07-06] MEDS: guaiFENesin 600 mg ER Tab PO SCH ×2 (06:15→18:02)
[2018-07-06 07:46] LABS: BASO # 0.3 K/uL (0.0-0.2); BASO % 1.3 % (0.0-2.0); EOS # 0.2 K/uL (0.0-0.7); EOS % 0.8 % (0.0-4.0); LYMPH # 8.1 K/uL (1.0-4.3); MEAN CELL VOLUME 85.8 fL (80.0-94.0); MEAN CORPUSCULAR HEMOGLOBIN 27.3 pg (27.0-31.0); MEAN CORPUSCULAR HGB CONC 31.8 g/dL (33.0-37.0); MEAN PLATELET VOLUME 8.9 fL (7.2-11.7); MONO # 0.5 K/uL (0.0-0.8); NEUT # 15.3 K/uL (1.8-7.0); NEUT % 62.9 % (50.0-75.0); NRBC % 0.7 % (0.0-2.0); RBC 3.24 Mil/uL (4.40-5.90); RED CELL DISTRIBUTION WIDTH 15.8 % (11.5-14.5); WHITE BLOOD COUNT 24.4 K/uL (4.8-10.8)
[2018-07-06 07:49] LABS: HEMOGLOBIN 8.8 g/dL (12.0-18.0)
[2018-07-06 08:10] LABS: ALB/GLOB RATIO 0.8 (1.0-2.1); ALBUMIN 2.3 g/dL (3.5-5.0); ALT/SGPT 19 U/L (21-72); AST/SGOT 24 U/L (17-59); BLOOD UREA NITROGEN 8 mg/dL (9-20); CALCIUM 8.6 mg/dl (8.6-10.4); GFR NON-AFRICAN AMERICAN > 60
--- NOTE | 2018-07-06 08:30 | CP.PCM.PN ---
Subjective - Date & Time of Evaluation Date of Evaluation: 07/06/18 Time of Evaluation: 06:45 - Subjective Subjective: Surgery Progress note. Dr. Garvin Pt seen and examined at bedside. No acute events overnight. Patient reports 3 BMs yesterday. No new complaints. Still with productive cough. Tolerating diet. No F/C. Objective - Vital Signs/Intake and Output Vital Signs (last 24 hours): Temp Pulse Resp BP Pulse Ox 97.7 F 98 H 20 150/65 99 07/06/18 07:53 07/06/18 07:53 07/06/18 07:53 07/06/18 07:53 07/06/18 07:53 Intake and Output: 07/06/18 07/06/18 06:59 18:59 Intake Total 2240 Output Total 950 Balance 1290 - Medications Medications: Current Medications Acetaminophen (Tylenol 325mg Tab) 650 mg PO ONCE PRN PRN Reason: give prior blood transfusion Stop: 07/06/18 10:58 Last Admin: 07/05/18 16:25 Dose: 650 mg Al Hydrox/Mg Hydrox/Simethicone (Maalox 30 Ml) 30 ml PO Q4 PRN PRN Reason: Indigestion / Heartburn Last Admin: 06/30/18 18:00 Dose: 30 ml Albuterol/Ipratropium (Duoneb 3 Mg/0.5 Mg (3 Ml) Ud) 3 ml INH RQ6 [facility] Last Admin: 07/06/18 08:24 Dose: 3 ml Benzocaine/Menthol (Cepacol Sore Throat) 1 darryl MT Q4H PRN PRN Reason: Sore Throat Clotrimazole (Lotrimin 1%) 0 gm TOP BID [facility] Last Admin: 07/05/18 17:04 Dose: 1 appl Diphenhydramine HCl (Benadryl) 25 mg PO ONCE PRN PRN Reason: give prior blood transfusion Stop: 07/06/18 10:58 Last Admin: 07/05/18 16:25 Dose: 25 mg Emollient Ointment (Vaseline Oint) 30 gm TOP Q6H PRN PRN Reason: Dry skin Last Admin: 07/05/18 10:45 Dose: 30 gm Furosemide (Lasix) 40 mg IVP ONCE ONE Stop: 07/06/18 08:31 Gabapentin (Neurontin) 300 mg PO BID [facility] Last Admin: 07/05/18 17:07 Dose: 300 mg Guaifenesin (Mucinex La) 600 mg PO Q12H [facility] Last Admin: 07/06/18 06:15 Dose: 600 mg Heparin Sodium (Porcine) (Heparin) 5,000 units SC Q8 [facility] Last Admin: 07/06/18 05:20 Dose: 5,000 units Hydrocortisone Sodium Succinate (Solu-Cortef) 50 mg IV DAILY [facility] Last Admin: 07/05/18 10:29 Dose: 50 mg Ciprofloxacin (Cipro 400mg/200ml Dsw) 400 mg in 200 mls @ 133 mls/hr IVPB Q12H [facility]; Protocol Last Admin: 07/06/18 05:15 Dose: 133 mls/hr Metronidazole (Flagyl) 500 mg in 100 mls @ 100 mls/hr IVPB Q8H [facility]; Protocol Last Admin: 07/06/18 02:00 Dose: 100 mls/hr Lactic Acid (Lac-Hydrin 12% Lotion (225 G)) 1 gm EXT BID [facility] Last Admin: 07/05/18 17:04 Dose: 1 applic Morphine Sulfate (Morphine) 2 mg IVP Q4 PRN PRN Reason: Pain, moderate (4-7) Last Admin: 07/05/18 01:03 Dose: 2 mg Ondansetron HCl (Zofran Inj) 4 mg IVP Q6 PRN PRN Reason: Nausea/Vomiting Last Admin: 07/02/18 21:59 Dose: 4 mg Oxycodone/Acetaminophen (Percocet 5/325 Mg Tab) 1 tab PO Q6H PRN PRN Reason: Pain, moderate (4-7) Stop: 07/07/18 22:16 Last Admin: 07/05/18 10:43 Dose: 1 tab Pantoprazole Sodium (Protonix Ec Tab) 40 mg PO DAILY [facility] Last Admin: 07/05/18 10:28 Dose: 40 mg Potassium Chloride (Potassium Chloride Oral Soln) 40 meq PO DAILY [facility] Stop: 07/07/18 23:59 Last Admin: 07/05/18 13:25 Dose: 40 meq Potassium Phos/Sodium Phos (Neutra-Phos) 1 pkt PO DAILY [facility] Tamsulosin HCl (Flomax) 0.4 mg PO DAILY [facility] Last Admin: 01/09/19 10:28 Dose: 0.4 mg - Labs Labs: 07/06/18 07:00 07/06/18 07:00 PT 13.5 SECONDS (9.7-12.2) H 06/21/18 10:43 INR 1.2 06/21/18 10:43 APTT 29 SECONDS (21-34) 06/21/18 10:43 - Constitutional Appears: Well, Non-toxic, No Acute Distress - Head Exam Head Exam: ATRAUMATIC, NORMAL INSPECTION, NORMOCEPHALIC - Eye Exam Eye Exam: EOMI, Normal appearance. absent: Scleral icterus - ENT Exam ENT Exam: Mucous Membranes Moist - Respiratory Exam Respiratory Exam: NORMAL BREATHING PATTERN. absent: Accessory Muscle Use, Respiratory Distress - Cardiovascular Exam Cardiovascular Exam: absent: JVD - GI/Abdominal Exam GI & Abdominal Exam: Soft. absent: Distended, Firm, Guarding, Rigid, Rebound Additional comments: Mild tenderness to palpation ean-incisionally. Non-distended. soft - Neurological Exam Neurological Exam: Alert, Awake, Oriented x3 - Skin Additional comments: dry sloughing skin noted. Assessment and Plan - Assessment and Plan (Free Text) Assessment: 73yo M s/p left inguinal hernia repair w mesh. POD 2 Plan: - Tolerating diet - monitor bowel fxn - Encourage IS use - Encourage OOBTC. PT eval and treat. Further recs as per Dr. Bharathi Castañeda PGY2 surgery
--- NOTE | 2018-07-06 09:22 | CP.PCM.PN ---
Subjective - Date & Time of Evaluation Date of Evaluation: 07/06/18 Time of Evaluation: 09:21 - Subjective Subjective: Eating better post transfusion K still low but better; on repletion Objective - Vital Signs/Intake and Output Vital Signs (last 24 hours): Temp Pulse Resp BP Pulse Ox 97.7 F 98 H 20 140/70 99 07/06/18 07:53 07/06/18 07:53 07/06/18 07:53 07/06/18 08:50 07/06/18 07:53 Intake and Output: 07/06/18 07/06/18 06:59 18:59 Intake Total 2240 Output Total 950 Balance 1290 - Medications Medications: Current Medications Acetaminophen (Tylenol 325mg Tab) 650 mg PO ONCE PRN PRN Reason: give prior blood transfusion Stop: 07/06/18 10:58 Last Admin: 07/05/18 16:25 Dose: 650 mg Al Hydrox/Mg Hydrox/Simethicone (Maalox 30 Ml) 30 ml PO Q4 PRN PRN Reason: Indigestion / Heartburn Last Admin: 06/30/18 18:00 Dose: 30 ml Albuterol/Ipratropium (Duoneb 3 Mg/0.5 Mg (3 Ml) Ud) 3 ml INH RQ6 [facility] Last Admin: 07/06/18 08:24 Dose: 3 ml Benzocaine/Menthol (Cepacol Sore Throat) 1 darryl MT Q4H PRN PRN Reason: Sore Throat Clotrimazole (Lotrimin 1%) 0 gm TOP BID [facility] Last Admin: 07/05/18 17:04 Dose: 1 appl Diphenhydramine HCl (Benadryl) 25 mg PO ONCE PRN PRN Reason: give prior blood transfusion Stop: 07/06/18 10:58 Last Admin: 07/05/18 16:25 Dose: 25 mg Emollient Ointment (Vaseline Oint) 30 gm TOP Q6H PRN PRN Reason: Dry skin Last Admin: 07/05/18 10:45 Dose: 30 gm Gabapentin (Neurontin) 300 mg PO BID [facility] Last Admin: 07/05/18 17:07 Dose: 300 mg Guaifenesin (Mucinex La) 600 mg PO Q12H [facility] Last Admin: 07/06/18 06:15 Dose: 600 mg Heparin Sodium (Porcine) (Heparin) 5,000 units SC Q8 [facility] Last Admin: 07/06/18 05:20 Dose: 5,000 units Hydrocortisone Sodium Succinate (Solu-Cortef) 50 mg IV DAILY [facility] Last Admin: 07/05/18 10:29 Dose: 50 mg Ciprofloxacin (Cipro 400mg/200ml Dsw) 400 mg in 200 mls @ 133 mls/hr IVPB Q12H [facility]; Protocol Last Admin: 07/06/18 05:15 Dose: 133 mls/hr Metronidazole (Flagyl) 500 mg in 100 mls @ 100 mls/hr IVPB Q8H [facility]; Protocol Last Admin: 07/06/18 02:00 Dose: 100 mls/hr Lactic Acid (Lac-Hydrin 12% Lotion (225 G)) 1 gm EXT BID [facility] Last Admin: 07/05/18 17:04 Dose: 1 applic Morphine Sulfate (Morphine) 2 mg IVP Q4 PRN PRN Reason: Pain, moderate (4-7) Last Admin: 07/05/18 01:03 Dose: 2 mg Ondansetron HCl (Zofran Inj) 4 mg IVP Q6 PRN PRN Reason: Nausea/Vomiting Last Admin: 07/02/18 21:59 Dose: 4 mg Oxycodone/Acetaminophen (Percocet 5/325 Mg Tab) 1 tab PO Q6H PRN PRN Reason: Pain, moderate (4-7) Stop: 07/07/18 22:16 Last Admin: 07/05/18 10:43 Dose: 1 tab Pantoprazole Sodium (Protonix Ec Tab) 40 mg PO DAILY [facility] Last Admin: 07/05/18 10:28 Dose: 40 mg Potassium Chloride (Potassium Chloride Oral Soln) 40 meq PO DAILY [facility] Stop: 07/07/18 23:59 Last Admin: 07/05/18 13:25 Dose: 40 meq Potassium Phos/Sodium Phos (Neutra-Phos) 1 pkt PO DAILY [facility] Tamsulosin HCl (Flomax) 0.4 mg PO DAILY [facility] Last Admin: 07/05/18 10:28 Dose: 0.4 mg - Labs Labs: 07/06/18 07:00 07/06/18 07:00 PT 13.5 SECONDS (9.7-12.2) H 06/21/18 10:43 INR 1.2 06/21/18 10:43 APTT 29 SECONDS (21-34) 06/21/18 10:43 - Constitutional Appears: No Acute Distress, Chronically Ill - Head Exam Head Exam: ATRAUMATIC, NORMAL INSPECTION - Eye Exam Eye Exam: EOMI, Normal appearance - Neck Exam Neck Exam: Normal Inspection. absent: Tenderness - Respiratory Exam Respiratory Exam: Clear to Ausculation Bilateral, NORMAL BREATHING PATTERN - Cardiovascular Exam Cardiovascular Exam: REGULAR RHYTHM, +S1 - GI/Abdominal Exam GI & Abdominal Exam: Soft. absent: Tenderness - Extremities Exam Extremities Exam: Normal Inspection. absent: Tenderness - Neurological Exam Neurological Exam: Awake, CN II-XII Intact - Skin Skin Exam: Intact, Rash, Warm Assessment and Plan (1) APL (acute promyelocytic leukemia) Status: Acute (2) Pneumonia Status: Acute (3) VIOLETTE (acute kidney injury) Status: Resolved (4) Pneumonia Status: Acute (5) Mullins-Ildefonso disease Status: Acute - Assessment and Plan (Free Text) Plan: replete K follow up maurice
[2018-07-06] MEDS: Clotrimazole 1% Cream(30 gm) TOP SCH ×2 (09:42→17:33)
[2018-07-06] MEDS: Ammonium Lactate 12% Lotion (225 g) EXT SCH ×2 (09:42→17:33)
[2018-07-06] MEDS: Potassium Chloride 20 mEq/15 ml LIQ UD PO SCH (09:45)
[2018-07-06] MEDS: Potassium & Sodium Phosphate PO SCH (09:45)
[2018-07-06] MEDS: Pantoprazole 40 mg EC Tab PO SCH (09:45)
--- NOTE | 2018-07-06 10:33 | RAD ---
Date of service: 07/06/2018 HISTORY: SOB/CONGESTION COMPARISON: 06/27/2018 FINDINGS: LUNGS: There is ill-defined opacity adjacent to the left hilum common nonspecific. Follow-up advised. Rule out pneumonia. PLEURA: Small left pleural effusion. No right pleural effusion. No pneumothorax. CARDIOVASCULAR: No aortic atherosclerotic calcification present. Normal cardiac size. No congestive change. Right IJ central venous catheter noted. Its tip is situated more proximally than on the prior examination of 06/27/2018. OSSEOUS STRUCTURES: No significant abnormalities. VISUALIZED UPPER ABDOMEN: Normal. OTHER FINDINGS: None. IMPRESSION: Possible small left pleural effusion. Ill-defined opacity adjacent to left hilum. Follow-up advised. Possible pneumonia.
--- NOTE | 2018-07-06 11:26 | CP.PCM.PN ---
Subjective - Date & Time of Evaluation Date of Evaluation: 07/06/18 Time of Evaluation: 11:26 - Subjective Subjective: POD # 2 VS NOTED. AAO. FEELS OK. C/O SORE THROAT ODYNOPHAGIA ROS. HEENT : N. Resp : No cough, wheezing ,pleuritic CP ,or hemoptysis Cardio : No anginal CP, PND, orthopnea, palpitation GI : No abd.pain, n/v ,diarrhea or GI bleeding . 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 Musculoskel : No joint swelling , Derm rash all over the body Psych : Normal affect. Ext : No swelling ,calf pain PE. Pt. is in no distress. V.S As noted in the chart Head ,ear nose,throat and eyes : Normal Neck : Supple with normal carotids. Lungs: fair air entry Heart : S1 & S2 normal with S4. No murmur. Abd : Soft , POST OPERATIVE Neuro : Moves all ext. with no localized deficit. Ext : No edema with intact pulses.Non tender calves .LT.POST OPERTIVE GROIN S UTURE-LINE OK. Derm : Generalized erythema with exfoliation MUCH IMPROVED, SKIN DRYING OFF AND PEELING. LABS/RADIOLOGY: REVIEWED Objective - Vital Signs/Intake and Output Vital Signs (last 24 hours): Temp Pulse Resp BP Pulse Ox 97.7 F 98 H 20 140/70 99 07/06/18 07:53 07/06/18 07:53 07/06/18 07:53 07/06/18 08:50 07/06/18 07:53 Intake and Output: 07/06/18 07/06/18 06:59 18:59 Intake Total 2240 Output Total 950 Balance 1290 - Medications Medications: Current Medications Al Hydrox/Mg Hydrox/Simethicone (Maalox 30 Ml) 30 ml PO Q4 PRN PRN Reason: Indigestion / Heartburn Last Admin: 06/30/18 18:00 Dose: 30 ml Albuterol/Ipratropium (Duoneb 3 Mg/0.5 Mg (3 Ml) Ud) 3 ml INH RQ6 [facility] Last Admin: 07/06/18 08:24 Dose: 3 ml Benzocaine/Menthol (Cepacol Sore Throat) 1 darryl MT Q4H PRN PRN Reason: Sore Throat Clotrimazole (Lotrimin 1%) 0 gm TOP BID [facility] Last Admin: 07/06/18 09:42 Dose: 1 appl Emollient Ointment (Vaseline Oint) 30 gm TOP Q6H PRN PRN Reason: Dry skin Last Admin: 07/05/18 10:45 Dose: 30 gm Gabapentin (Neurontin) 300 mg PO BID [facility] Last Admin: 07/06/18 09:45 Dose: 300 mg Guaifenesin (Mucinex La) 600 mg PO Q12H [facility] Last Admin: 07/06/18 06:15 Dose: 600 mg Heparin Sodium (Porcine) (Heparin) 5,000 units SC Q8 [facility] Last Admin: 07/06/18 05:20 Dose: 5,000 units Hydrocortisone Sodium Succinate (Solu-Cortef) 50 mg IV DAILY [facility] Last Admin: 07/06/18 09:43 Dose: 50 mg Ciprofloxacin (Cipro 400mg/200ml Dsw) 400 mg in 200 mls @ 133 mls/hr IVPB Q12H [facility]; Protocol Last Admin: 07/06/18 05:15 Dose: 133 mls/hr Metronidazole (Flagyl) 500 mg in 100 mls @ 100 mls/hr IVPB Q8H [facility]; Protocol Last Admin: 07/06/18 10:15 Dose: 100 mls/hr Lactic Acid (Lac-Hydrin 12% Lotion (225 G)) 1 gm EXT BID [facility] Last Admin: 07/06/18 09:42 Dose: 1 applic Morphine Sulfate (Morphine) 2 mg IVP Q4 PRN PRN Reason: Pain, moderate (4-7) Last Admin: 07/05/18 01:03 Dose: 2 mg Ondansetron HCl (Zofran Inj) 4 mg IVP Q6 PRN PRN Reason: Nausea/Vomiting Last Admin: 07/02/18 21:59 Dose: 4 mg Oxycodone/Acetaminophen (Percocet 5/325 Mg Tab) 1 tab PO Q6H PRN PRN Reason: Pain, moderate (4-7) Stop: 07/07/18 22:16 Last Admin: 07/05/18 10:43 Dose: 1 tab Pantoprazole Sodium (Protonix Ec Tab) 40 mg PO DAILY [facility] Last Admin: 07/06/18 09:45 Dose: 40 mg Potassium Chloride (Potassium Chloride Oral Soln) 40 meq PO DAILY [facility] Stop: 07/07/18 23:59 Last Admin: 07/06/18 09:45 Dose: 40 meq Potassium Phos/Sodium Phos (Neutra-Phos) 1 pkt PO DAILY [facility] Last Admin: 07/06/18 09:45 Dose: 1 pkt Tamsulosin HCl (Flomax) 0.4 mg PO DAILY [facility] Last Admin: 07/06/18 09:45 Dose: 0.4 mg - Labs Labs: 07/06/18 07:00 07/06/18 07:00 PT 13.5 SECONDS (9.7-12.2) H 06/21/18 10:43 INR 1.2 06/21/18 10:43 APTT 29 SECONDS (21-34) 06/21/18 10:43 Assessment and Plan (1) Inguinal hernia recurrent unilateral Status: Acute (2) SBO (small bowel obstruction) Status: Acute (3) Incarcerated left inguinal hernia Status: Acute (4) Pneumonia Status: Acute (5) Leukocytosis Status: Acute (6) Generalized rash Status: Acute (7) APL (acute promyelocytic leukemia) Status: Acute - Assessment and Plan (Free Text) Plan: PLAN: ON IV CIPRO 400MG IVPB Q12 [facility] 06/25/18 CONTINUE IV FLAGYL 500MG IV Q 8[facility]RL[facility] 06/23/18 PO NYSTATIN 5ML PO S/S TID.07/07/18 LW PER SURGERY. F/U CBC /BMP IN AM
--- NOTE | 2018-07-06 14:09 | CP.PCM.PN ---
Subjective - Date & Time of Evaluation Date of Evaluation: 07/06/18 Time of Evaluation: 14:09 - Subjective Subjective: CHIEF COMPLAINTS TODAY : S/P L INGUINAL SURGERY ROS. HEENT : N. Resp : No cough, wheezing ,pleuritic CP ,or hemoptysis Cardio : No anginal CP, PND, orthopnea, palpitation GI : No abd.pain, n/v ,diarrhea or GI bleeding . 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 Musculoskel : No joint swelling , Derm rash all over the body Psych : Normal affect. Ext : No swelling ,calf pain PE. Pt. is alert awake in no distress. V.S As noted in the chart Head ,ear nose,throat and eyes : Normal. Neck : Supple with normal carotids. Lungs: Clear air entry. Heart : S1 & S2 normal with S4. No murmur. Abd : Soft non tender mild distention Neuro : Moves all ext. with no localized deficit. Ext : No edema with intact pulses.Non tender calves Derm : Generalized erythema with exfoliation LABS/RADIOLOGY ASSESSMENT/PLAN : CONT IV AB AND FLUIDS H/H 8.8, TO RECEIVE 2 PC Objective - Vital Signs/Intake and Output Vital Signs (last 24 hours): Temp Pulse Resp BP Pulse Ox 97.7 F 98 H 20 140/70 99 07/06/18 07:53 07/06/18 07:53 07/06/18 07:53 07/06/18 08:50 07/06/18 07:53 Intake and Output: 07/06/18 07/06/18 11:59 23:59 Intake Total 1525 Balance 1525 - Medications Medications: Current Medications Al Hydrox/Mg Hydrox/Simethicone (Maalox 30 Ml) 30 ml PO Q4 PRN PRN Reason: Indigestion / Heartburn Last Admin: 06/30/18 18:00 Dose: 30 ml Benzocaine/Menthol (Cepacol Sore Throat) 1 darryl MT Q4H PRN PRN Reason: Sore Throat Clotrimazole (Lotrimin 1%) 0 gm TOP BID [facility] Last Admin: 07/06/18 09:42 Dose: 1 appl Emollient Ointment (Vaseline Oint) 30 gm TOP Q6H PRN PRN Reason: Dry skin Last Admin: 07/05/18 10:45 Dose: 30 gm Gabapentin (Neurontin) 300 mg PO BID [facility] Last Admin: 07/06/18 09:45 Dose: 300 mg Guaifenesin (Mucinex La) 600 mg PO Q12H [facility] Last Admin: 07/06/18 06:15 Dose: 600 mg Hydrocortisone Sodium Succinate (Solu-Cortef) 50 mg IV DAILY [facility] Last Admin: 07/06/18 09:43 Dose: 50 mg Ciprofloxacin (Cipro 400mg/200ml Dsw) 400 mg in 200 mls @ 133 mls/hr IVPB Q12H [facility]; Protocol Last Admin: 07/06/18 05:15 Dose: 133 mls/hr Metronidazole (Flagyl) 500 mg in 100 mls @ 100 mls/hr IVPB Q8H [facility]; Protocol Last Admin: 07/06/18 10:15 Dose: 100 mls/hr Lactic Acid (Lac-Hydrin 12% Lotion (225 G)) 1 gm EXT BID [facility] Last Admin: 07/06/18 09:42 Dose: 1 applic Morphine Sulfate (Morphine) 2 mg IVP Q4 PRN PRN Reason: Pain, moderate (4-7) Last Admin: 07/05/18 01:03 Dose: 2 mg Ondansetron HCl (Zofran Inj) 4 mg IVP Q6 PRN PRN Reason: Nausea/Vomiting Last Admin: 07/02/18 21:59 Dose: 4 mg Oxycodone/Acetaminophen (Percocet 5/325 Mg Tab) 1 tab PO Q6H PRN PRN Reason: Pain, moderate (4-7) Stop: 07/07/18 22:16 Last Admin: 07/05/18 10:43 Dose: 1 tab Pantoprazole Sodium (Protonix Ec Tab) 40 mg PO DAILY [facility] Last Admin: 07/06/18 09:45 Dose: 40 mg Potassium Chloride (Potassium Chloride Oral Soln) 40 meq PO DAILY [facility] Stop: 07/07/18 23:59 Last Admin: 07/06/18 09:45 Dose: 40 meq Potassium Phos/Sodium Phos (Neutra-Phos) 1 pkt PO DAILY [facility] Last Admin: 07/06/18 09:45 Dose: 1 pkt Tamsulosin HCl (Flomax) 0.4 mg PO DAILY [facility] Last Admin: 07/06/18 09:45 Dose: 0.4 mg - Labs Labs: 07/06/18 07:00 07/06/18 07:00 PT 13.5 SECONDS (9.7-12.2) H 06/21/18 10:43 INR 1.2 06/21/18 10:43 APTT 29 SECONDS (21-34) 06/21/18 10:43
--- NOTE | 2018-07-06 21:42 | CP.PCM.PN ---
Subjective - Date & Time of Evaluation Date of Evaluation: 07/06/18 Time of Evaluation: 19:00 - Subjective Subjective: Tolerating PO Objective - Vital Signs/Intake and Output Vital Signs (last 24 hours): Temp Pulse Resp BP Pulse Ox 97.3 F L 92 H 18 138/68 98 07/06/18 15:57 07/06/18 15:57 07/06/18 15:57 07/06/18 15:57 07/06/18 15:57 Intake and Output: 07/06/18 07/07/18 18:59 06:59 Intake Total 960 Balance 960 - Medications Medications: Current Medications Al Hydrox/Mg Hydrox/Simethicone (Maalox 30 Ml) 30 ml PO Q4 PRN PRN Reason: Indigestion / Heartburn Last Admin: 06/30/18 18:00 Dose: 30 ml Benzocaine/Menthol (Cepacol Sore Throat) 1 darryl MT Q4H PRN PRN Reason: Sore Throat Clotrimazole (Lotrimin 1%) 0 gm TOP BID [facility] Last Admin: 07/06/18 17:33 Dose: 1 appl Emollient Ointment (Vaseline Oint) 30 gm TOP Q6H PRN PRN Reason: Dry skin Last Admin: 07/05/18 10:45 Dose: 30 gm Gabapentin (Neurontin) 300 mg PO BID [facility] Last Admin: 07/06/18 18:02 Dose: 300 mg Guaifenesin (Mucinex La) 600 mg PO Q12H [facility] Last Admin: 07/06/18 18:02 Dose: 600 mg Hydrocortisone Sodium Succinate (Solu-Cortef) 50 mg IV DAILY [facility] Last Admin: 07/06/18 09:43 Dose: 50 mg Ciprofloxacin (Cipro 400mg/200ml Dsw) 400 mg in 200 mls @ 133 mls/hr IVPB Q12H [facility]; Protocol Last Admin: 07/06/18 17:32 Dose: 133 mls/hr Metronidazole (Flagyl) 500 mg in 100 mls @ 100 mls/hr IVPB Q8H [facility]; Protocol Last Admin: 07/06/18 18:02 Dose: 100 mls/hr Lactic Acid (Lac-Hydrin 12% Lotion (225 G)) 1 gm EXT BID [facility] Last Admin: 07/06/18 17:33 Dose: 1 applic Morphine Sulfate (Morphine) 2 mg IVP Q4 PRN PRN Reason: Pain, moderate (4-7) Last Admin: 07/05/18 01:03 Dose: 2 mg Ondansetron HCl (Zofran Inj) 4 mg IVP Q6 PRN PRN Reason: Nausea/Vomiting Last Admin: 07/02/18 21:59 Dose: 4 mg Oxycodone/Acetaminophen (Percocet 5/325 Mg Tab) 1 tab PO Q6H PRN PRN Reason: Pain, moderate (4-7) Stop: 07/07/18 22:16 Last Admin: 07/05/18 10:43 Dose: 1 tab Pantoprazole Sodium (Protonix Ec Tab) 40 mg PO DAILY [facility] Last Admin: 07/06/18 09:45 Dose: 40 mg Potassium Chloride (Potassium Chloride Oral Soln) 40 meq PO DAILY [facility] Stop: 07/07/18 23:59 Last Admin: 07/06/18 09:45 Dose: 40 meq Potassium Phos/Sodium Phos (Neutra-Phos) 1 pkt PO DAILY [facility] Last Admin: 07/06/18 09:45 Dose: 1 pkt Tamsulosin HCl (Flomax) 0.4 mg PO DAILY [facility] Last Admin: 07/06/18 09:45 Dose: 0.4 mg - Labs Labs: 07/06/18 07:00 07/06/18 07:00 PT 13.5 SECONDS (9.7-12.2) H 06/21/18 10:43 INR 1.2 06/21/18 10:43 APTT 29 SECONDS (21-34) 06/21/18 10:43 - Head Exam Head Exam: ATRAUMATIC - Eye Exam Eye Exam: Normal appearance - ENT Exam ENT Exam: Mucous Membranes Dry - Respiratory Exam Respiratory Exam: NORMAL BREATHING PATTERN - Cardiovascular Exam Cardiovascular Exam: +S1, +S2 - GI/Abdominal Exam GI & Abdominal Exam: Normal Bowel Sounds Assessment and Plan (1) Leukocytosis Assessment & Plan: on antibiotics flow cytometery suggestive of reactive leukocytosis f/u PCR evaluation of tcells Status: Acute (2) Anemia Assessment & Plan: chronic disease transfusion support PRN Status: Acute (3) APL (acute promyelocytic leukemia) Assessment & Plan: no evidence of APL by flow cytometery Status: Acute
[2018-07-07] MEDS: metroNIDAZOLE IV 500 mg/100 ml 500 MG/100 ML BAG IVPB SCH ×3 (02:45→18:04)
[2018-07-07] MEDS: Ciprofloxacin 400mg/200ml D5W 400 MG/200 ML BAG IVPB SCH ×2 (05:00→17:40)
[2018-07-07] MEDS: guaiFENesin 600 mg ER Tab PO SCH ×2 (06:05→18:04)
[2018-07-07 06:42] LABS: ALB/GLOB RATIO 0.9 (1.0-2.1); ALBUMIN 2.4 g/dL (3.5-5.0); ALT/SGPT 21 U/L (21-72); AST/SGOT 19 U/L (17-59); BLOOD UREA NITROGEN 10 mg/dL (9-20); CALCIUM 8.5 mg/dl (8.6-10.4); GFR NON-AFRICAN AMERICAN > 60
[2018-07-07] MEDS: Potassium & Sodium Phosphate PO SCH (09:26)
[2018-07-07] MEDS: Potassium Chloride 20 mEq/15 ml LIQ UD PO SCH (09:26)
[2018-07-07] MEDS: Pantoprazole 40 mg EC Tab PO SCH (09:26)
[2018-07-07] MEDS: Ammonium Lactate 12% Lotion (225 g) EXT SCH ×2 (09:44→17:38)
[2018-07-07] MEDS: Clotrimazole 1% Cream(30 gm) TOP SCH ×2 (09:44→17:38)
[2018-07-07] MEDS: Nystatin 100,000 Units/ml Oral Susp 5 ml UD PO SCH ×5 (09:56→21:44)
--- NOTE | 2018-07-07 10:43 | CP.PCM.PN ---
Subjective - Date & Time of Evaluation Date of Evaluation: 07/07/18 Time of Evaluation: 06:45 - Subjective Subjective: Surgery Progress note. Dr. Garvin Pt seen and examined at bedside. No acute events overnight. No N/V. Tolerating food. States that he is passing gas but denies any BMs. No new complaints. Has been up to chair but not ambulating outside of the room as of yet. Objective - Vital Signs/Intake and Output Vital Signs (last 24 hours): Temp Pulse Resp BP Pulse Ox 97.4 F L 85 20 132/61 100 07/07/18 07:42 07/07/18 07:42 07/07/18 07:42 07/07/18 07:42 07/07/18 07:42 Intake and Output: 07/07/18 07/07/18 06:59 18:59 Intake Total 600 Balance 600 - Medications Medications: Current Medications Al Hydrox/Mg Hydrox/Simethicone (Maalox 30 Ml) 30 ml PO Q4 PRN PRN Reason: Indigestion / Heartburn Last Admin: 06/30/18 18:00 Dose: 30 ml Albuterol/Ipratropium (Duoneb 3 Mg/0.5 Mg (3 Ml) Ud) 3 ml INH RQ4 [facility] Benzocaine/Menthol (Cepacol Sore Throat) 1 darryl MT Q4H PRN PRN Reason: Sore Throat Clotrimazole (Lotrimin 1%) 0 gm TOP BID [facility] Last Admin: 07/07/18 09:44 Dose: 1 appl Emollient Ointment (Vaseline Oint) 30 gm TOP Q6H PRN PRN Reason: Dry skin Last Admin: 07/05/18 10:45 Dose: 30 gm Gabapentin (Neurontin) 300 mg PO BID [facility] Last Admin: 07/07/18 09:26 Dose: 300 mg Guaifenesin (Mucinex La) 600 mg PO Q12H [facility] Last Admin: 07/07/18 06:05 Dose: 600 mg Hydrocortisone Sodium Succinate (Solu-Cortef) 50 mg IV DAILY [facility] Last Admin: 07/07/18 09:27 Dose: 50 mg Ciprofloxacin (Cipro 400mg/200ml Dsw) 400 mg in 200 mls @ 133 mls/hr IVPB Q12H [facility]; Protocol Last Admin: 07/07/18 05:00 Dose: 133 mls/hr Metronidazole (Flagyl) 500 mg in 100 mls @ 100 mls/hr IVPB Q8H [facility]; Protocol Last Admin: 07/07/18 02:45 Dose: 100 mls/hr Lactic Acid (Lac-Hydrin 12% Lotion (225 G)) 1 gm EXT BID [facility] Last Admin: 07/07/18 09:44 Dose: 1 applic Morphine Sulfate (Morphine) 2 mg IVP Q4 PRN PRN Reason: Pain, moderate (4-7) Last Admin: 07/05/18 01:03 Dose: 2 mg Nystatin (Nystatin Oral Susp) 5 ml PO QID [facility] Last Admin: 07/07/18 09:56 Dose: Not Given Ondansetron HCl (Zofran Inj) 4 mg IVP Q6 PRN PRN Reason: Nausea/Vomiting Last Admin: 07/02/18 21:59 Dose: 4 mg Oxycodone/Acetaminophen (Percocet 5/325 Mg Tab) 1 tab PO Q6H PRN PRN Reason: Pain, moderate (4-7) Stop: 07/07/18 22:16 Last Admin: 07/05/18 10:43 Dose: 1 tab Pantoprazole Sodium (Protonix Ec Tab) 40 mg PO DAILY [facility] Last Admin: 07/07/18 09:26 Dose: 40 mg Potassium Chloride (Potassium Chloride Oral Soln) 40 meq PO DAILY [facility] Stop: 07/07/18 23:59 Last Admin: 07/07/18 09:26 Dose: 40 meq Potassium Phos/Sodium Phos (Neutra-Phos) 1 pkt PO DAILY [facility] Last Admin: 07/07/18 09:26 Dose: 1 pkt Tamsulosin HCl (Flomax) 0.4 mg PO DAILY [facility] Last Admin: 07/07/18 09:26 Dose: 0.4 mg - Labs Labs: 07/06/18 07:00 07/07/18 06:13 PT 13.5 SECONDS (9.7-12.2) H 06/21/18 10:43 INR 1.2 06/21/18 10:43 APTT 29 SECONDS (21-34) 06/21/18 10:43 - Constitutional Appears: Well, Non-toxic, No Acute Distress - Head Exam Head Exam: ATRAUMATIC, NORMAL INSPECTION, NORMOCEPHALIC - Eye Exam Eye Exam: EOMI, Normal appearance. absent: Scleral icterus - ENT Exam ENT Exam: Mucous Membranes Moist - Respiratory Exam Respiratory Exam: NORMAL BREATHING PATTERN. absent: Accessory Muscle Use, Respiratory Distress - Cardiovascular Exam Cardiovascular Exam: RRR. absent: JVD - GI/Abdominal Exam GI & Abdominal Exam: Soft. absent: Distended, Firm, Guarding, Tenderness, Rebound Additional comments: Wound clean, and intact with dermabond. - Extremities Exam Extremities Exam: Normal Inspection. absent: Calf Tenderness - Neurological Exam Neurological Exam: Alert, Awake, Oriented x3 Assessment and Plan - Assessment and Plan (Free Text) Assessment: 73yo M s/p left inguinal hernia repair w mesh for SBO. POD 3 Plan: - Dulcolax supp - Monitor bowel fxn - OOBTC - Encourage Ambulation and IS use. - Ensure diet tolerance. No further surgical intervention warranted at this time Yifan Castañeda PGY2 surgery
--- NOTE | 2018-07-07 11:01 | CP.PCM.PN ---
Subjective - Date & Time of Evaluation Date of Evaluation: 07/07/18 Time of Evaluation: 11:00 - Subjective Subjective: CHIEF COMPLAINTS TODAY : S/P L INGUINAL SURGERY ROS. HEENT : N. Resp : No cough, wheezing ,pleuritic CP ,or hemoptysis Cardio : No anginal CP, PND, orthopnea, palpitation GI : No abd.pain, n/v ,diarrhea or GI bleeding . 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 Musculoskel : No joint swelling , Derm rash all over the body Psych : Normal affect. Ext : No swelling ,calf pain PE. Pt. is alert awake in no distress. V.S As noted in the chart Head ,ear nose,throat and eyes : Normal. Neck : Supple with normal carotids. Lungs: Clear air entry. Heart : S1 & S2 normal with S4. No murmur. Abd : Soft non tender mild distention Neuro : Moves all ext. with no localized deficit. Ext : No edema with intact pulses.Non tender calves Derm : Generalized erythema with exfoliation LABS/RADIOLOGY ASSESSMENT/PLAN : patient is ambulating Discussed with family, do not want rehab, will take the patient home as outpatient therapy Objective - Vital Signs/Intake and Output Vital Signs (last 24 hours): Temp Pulse Resp BP Pulse Ox 97.4 F L 85 20 132/61 100 07/07/18 07:42 07/07/18 07:42 07/07/18 07:42 07/07/18 07:42 07/07/18 07:42 Intake and Output: 07/06/18 07/07/18 23:59 11:59 Intake Total 960 600 Balance 960 600 - Medications Medications: Current Medications Al Hydrox/Mg Hydrox/Simethicone (Maalox 30 Ml) 30 ml PO Q4 PRN PRN Reason: Indigestion / Heartburn Last Admin: 06/30/18 18:00 Dose: 30 ml Albuterol/Ipratropium (Duoneb 3 Mg/0.5 Mg (3 Ml) Ud) 3 ml INH RQ4 [facility] Benzocaine/Menthol (Cepacol Sore Throat) 1 darryl MT Q4H PRN PRN Reason: Sore Throat Clotrimazole (Lotrimin 1%) 0 gm TOP BID [facility] Last Admin: 07/07/18 09:44 Dose: 1 appl Emollient Ointment (Vaseline Oint) 30 gm TOP Q6H PRN PRN Reason: Dry skin Last Admin: 07/05/18 10:45 Dose: 30 gm Gabapentin (Neurontin) 300 mg PO BID [facility] Last Admin: 07/07/18 09:26 Dose: 300 mg Guaifenesin (Mucinex La) 600 mg PO Q12H [facility] Last Admin: 07/07/18 06:05 Dose: 600 mg Hydrocortisone Sodium Succinate (Solu-Cortef) 50 mg IV DAILY [facility] Last Admin: 07/07/18 09:27 Dose: 50 mg Ciprofloxacin (Cipro 400mg/200ml Dsw) 400 mg in 200 mls @ 133 mls/hr IVPB Q12H [facility]; Protocol Last Admin: 07/07/18 05:00 Dose: 133 mls/hr Metronidazole (Flagyl) 500 mg in 100 mls @ 100 mls/hr IVPB Q8H [facility]; Protocol Last Admin: 07/07/18 10:58 Dose: 100 mls/hr Lactic Acid (Lac-Hydrin 12% Lotion (225 G)) 1 gm EXT BID [facility] Last Admin: 07/07/18 09:44 Dose: 1 applic Morphine Sulfate (Morphine) 2 mg IVP Q4 PRN PRN Reason: Pain, moderate (4-7) Last Admin: 07/05/18 01:03 Dose: 2 mg Nystatin (Nystatin Oral Susp) 5 ml PO QID [facility] Last Admin: 07/07/18 10:58 Dose: 5 ml Ondansetron HCl (Zofran Inj) 4 mg IVP Q6 PRN PRN Reason: Nausea/Vomiting Last Admin: 07/02/18 21:59 Dose: 4 mg Oxycodone/Acetaminophen (Percocet 5/325 Mg Tab) 1 tab PO Q6H PRN PRN Reason: Pain, moderate (4-7) Stop: 07/07/18 22:16 Last Admin: 07/05/18 10:43 Dose: 1 tab Pantoprazole Sodium (Protonix Ec Tab) 40 mg PO DAILY [facility] Last Admin: 07/07/18 09:26 Dose: 40 mg Potassium Chloride (Potassium Chloride Oral Soln) 40 meq PO DAILY [facility] Stop: 07/07/18 23:59 Last Admin: 07/07/18 09:26 Dose: 40 meq Potassium Phos/Sodium Phos (Neutra-Phos) 1 pkt PO DAILY [facility] Last Admin: 07/07/18 09:26 Dose: 1 pkt Tamsulosin HCl (Flomax) 0.4 mg PO DAILY [facility] Last Admin: 07/07/18 09:26 Dose: 0.4 mg - Labs Labs: 07/06/18 07:00 07/07/18 06:13 PT 13.5 SECONDS (9.7-12.2) H 06/21/18 10:43 INR 1.2 06/21/18 10:43 APTT 29 SECONDS (21-34) 06/21/18 10:43
[2018-07-07 12:02] LABS: BASO # 0.1 K/uL (0.0-0.2); BASO % 0.5 % (0.0-2.0); EOS # 0.2 K/uL (0.0-0.7); EOS % 0.9 % (0.0-4.0); LYMPH % 29.6 % (20.0-40.0); MEAN CELL VOLUME 86.1 fL (80.0-94.0); MEAN CORPUSCULAR HEMOGLOBIN 27.2 pg (27.0-31.0); MEAN CORPUSCULAR HGB CONC 31.6 g/dL (33.0-37.0); MEAN PLATELET VOLUME 8.6 fL (7.2-11.7); MONO # 0.7 K/uL (0.0-0.8); MONO % 3.1 % (0.0-10.0); NEUT # 15.7 K/uL (1.8-7.0); NEUT % 65.9 % (50.0-75.0); RBC 3.66 Mil/uL (4.40-5.90); RED CELL DISTRIBUTION WIDTH 16.7 % (11.5-14.5); WHITE BLOOD COUNT 23.8 K/uL (4.8-10.8)
--- NOTE | 2018-07-07 20:20 | CP.PCM.PN ---
Subjective - Date & Time of Evaluation Date of Evaluation: 07/07/18 Time of Evaluation: 20:20 - Subjective Subjective: POD # 3 VS NOTED. AAO. FEELS OK. TOLERATING DIET ROS. HEENT : N. Resp : No cough, wheezing ,pleuritic CP ,or hemoptysis Cardio : No anginal CP, PND, orthopnea, palpitation GI : No abd.pain, n/v ,diarrhea or GI bleeding . 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 Musculoskel : No joint swelling , Derm rash all over the body Psych : Normal affect. Ext : No swelling ,calf pain PE. Pt. is in no distress. V.S As noted in the chart Head ,ear nose,throat and eyes : Normal Neck : Supple with normal carotids. Lungs: fair air entry Heart : S1 & S2 normal with S4. No murmur. Abd : Soft , POST OPERATIVE Neuro : Moves all ext. with no localized deficit. Ext : No edema with intact pulses.Non tender calves .LT.POST OPERTIVE GROIN SUTURE-LINE OK. Derm : Generalized erythema with exfoliation MUCH IMPROVED, SKIN DRYING OFF AND PEELING. LABS/RADIOLOGY: REVIEWED WBC 23.8 H/H 10.0/ 31.5 BLOOD CULTURE 06/26/18 -VE TO DATE MRSA -VE SCREEN Objective - Vital Signs/Intake and Output Vital Signs (last 24 hours): Temp Pulse Resp BP Pulse Ox 97.6 F 74 20 147/77 100 07/07/18 16:06 07/07/18 16:06 07/07/18 16:06 07/07/18 16:06 07/07/18 16:06 - Medications Medications: Current Medications Al Hydrox/Mg Hydrox/Simethicone (Maalox 30 Ml) 30 ml PO Q4 PRN PRN Reason: Indigestion / Heartburn Last Admin: 06/30/18 18:00 Dose: 30 ml Albuterol/Ipratropium (Duoneb 3 Mg/0.5 Mg (3 Ml) Ud) 3 ml INH RQ4 [facility] Benzocaine/Menthol (Cepacol Sore Throat) 1 darryl MT Q4H PRN PRN Reason: Sore Throat Clotrimazole (Lotrimin 1%) 0 gm TOP BID [facility] Last Admin: 07/07/18 17:38 Dose: 1 appl Emollient Ointment (Vaseline Oint) 30 gm TOP Q6H PRN PRN Reason: Dry skin Last Admin: 07/05/18 10:45 Dose: 30 gm Gabapentin (Neurontin) 300 mg PO BID [facility] Last Admin: 07/07/18 17:39 Dose: 300 mg Guaifenesin (Mucinex La) 600 mg PO Q12H [facility] Last Admin: 07/07/18 18:04 Dose: 600 mg Hydrocortisone Sodium Succinate (Solu-Cortef) 50 mg IV DAILY [facility] Last Admin: 07/07/18 09:27 Dose: 50 mg Ciprofloxacin (Cipro 400mg/200ml Dsw) 400 mg in 200 mls @ 133 mls/hr IVPB Q12H [facility]; Protocol Last Admin: 07/07/18 17:40 Dose: 133 mls/hr Metronidazole (Flagyl) 500 mg in 100 mls @ 100 mls/hr IVPB Q8H [facility]; Protocol Last Admin: 07/07/18 18:04 Dose: 100 mls/hr Potassium Chloride (Potassium Chloride 20 Meq/100 Ml) 20 meq in 100 mls @ 50 mls/hr IVPB ONCE ONE Stop: 07/07/18 20:29 Last Admin: 07/07/18 18:04 Dose: 50 mls/hr Lactic Acid (Lac-Hydrin 12% Lotion (225 G)) 1 gm EXT BID [facility] Last Admin: 07/07/18 17:38 Dose: 1 applic Morphine Sulfate (Morphine) 2 mg IVP Q4 PRN PRN Reason: Pain, moderate (4-7) Last Admin: 07/05/18 01:03 Dose: 2 mg Nystatin (Nystatin Oral Susp) 5 ml PO QID [facility] Last Admin: 07/07/18 17:46 Dose: 5 ml Ondansetron HCl (Zofran Inj) 4 mg IVP Q6 PRN PRN Reason: Nausea/Vomiting Last Admin: 07/02/18 21:59 Dose: 4 mg Oxycodone/Acetaminophen (Percocet 5/325 Mg Tab) 1 tab PO Q6H PRN PRN Reason: Pain, moderate (4-7) Stop: 07/07/18 22:16 Last Admin: 07/05/18 10:43 Dose: 1 tab Pantoprazole Sodium (Protonix Ec Tab) 40 mg PO DAILY [facility] Last Admin: 07/07/18 09:26 Dose: 40 mg Potassium Chloride (Potassium Chloride Oral Soln) 40 meq PO DAILY [facility] Stop: 07/07/18 23:59 Last Admin: 07/07/18 09:26 Dose: 40 meq Potassium Phos/Sodium Phos (Neutra-Phos) 1 pkt PO DAILY [facility] Last Admin: 07/07/18 09:26 Dose: 1 pkt Tamsulosin HCl (Flomax) 0.4 mg PO DAILY [facility] Last Admin: 07/07/18 09:26 Dose: 0.4 mg - Labs Labs: 07/07/18 11:51 07/07/18 06:13 PT 13.5 SECONDS (9.7-12.2) H 06/21/18 10:43 INR 1.2 06/21/18 10:43 APTT 29 SECONDS (21-34) 06/21/18 10:43 Assessment and Plan (1) Inguinal hernia recurrent unilateral Status: Acute (2) SBO (small bowel obstruction) Status: Acute (3) Incarcerated left inguinal hernia Status: Acute (4) Pneumonia Status: Acute (5) Leukocytosis Status: Acute (6) Generalized rash Status: Acute (7) APL (acute promyelocytic leukemia) Status: Acute - Assessment and Plan (Free Text) Plan: PLAN: ON IV CIPRO 400MG IVPB Q12 [facility] 06/25/18 CONTINUE IV FLAGYL 500MG IV Q 8HRLY 06/23/18 PO NYSTATIN 5ML PO S/S TID.07/07/18 LWC PER SURGERY. PER SURGERY.
--- NOTE | 2018-07-07 21:21 | CP.PCM.PN ---
Subjective - Date & Time of Evaluation Date of Evaluation: 07/07/18 Time of Evaluation: 19:00 - Subjective Subjective: No complaints. Objective - Vital Signs/Intake and Output Vital Signs (last 24 hours): Temp Pulse Resp BP Pulse Ox 97.6 F 74 20 147/77 100 07/07/18 16:06 07/07/18 16:06 07/07/18 16:06 07/07/18 16:06 07/07/18 16:06 - Medications Medications: Current Medications Al Hydrox/Mg Hydrox/Simethicone (Maalox 30 Ml) 30 ml PO Q4 PRN PRN Reason: Indigestion / Heartburn Last Admin: 06/30/18 18:00 Dose: 30 ml Albuterol/Ipratropium (Duoneb 3 Mg/0.5 Mg (3 Ml) Ud) 3 ml INH RQ4 [facility] Benzocaine/Menthol (Cepacol Sore Throat) 1 darryl MT Q4H PRN PRN Reason: Sore Throat Clotrimazole (Lotrimin 1%) 0 gm TOP BID [facility] Last Admin: 07/07/18 17:38 Dose: 1 appl Emollient Ointment (Vaseline Oint) 30 gm TOP Q6H PRN PRN Reason: Dry skin Last Admin: 07/05/18 10:45 Dose: 30 gm Gabapentin (Neurontin) 300 mg PO BID [facility] Last Admin: 07/07/18 17:39 Dose: 300 mg Guaifenesin (Mucinex La) 600 mg PO Q12H [facility] Last Admin: 07/07/18 18:04 Dose: 600 mg Hydrocortisone Sodium Succinate (Solu-Cortef) 50 mg IV DAILY [facility] Last Admin: 07/07/18 09:27 Dose: 50 mg Ciprofloxacin (Cipro 400mg/200ml Dsw) 400 mg in 200 mls @ 133 mls/hr IVPB Q12H [facility]; Protocol Last Admin: 07/07/18 17:40 Dose: 133 mls/hr Metronidazole (Flagyl) 500 mg in 100 mls @ 100 mls/hr IVPB Q8H [facility]; Protocol Last Admin: 07/07/18 18:04 Dose: 100 mls/hr Lactic Acid (Lac-Hydrin 12% Lotion (225 G)) 1 gm EXT BID [facility] Last Admin: 07/07/18 17:38 Dose: 1 applic Morphine Sulfate (Morphine) 2 mg IVP Q4 PRN PRN Reason: Pain, moderate (4-7) Last Admin: 07/05/18 01:03 Dose: 2 mg Nystatin (Nystatin Oral Susp) 5 ml PO QID [facility] Last Admin: 07/07/18 17:46 Dose: 5 ml Ondansetron HCl (Zofran Inj) 4 mg IVP Q6 PRN PRN Reason: Nausea/Vomiting Last Admin: 07/02/18 21:59 Dose: 4 mg Oxycodone/Acetaminophen (Percocet 5/325 Mg Tab) 1 tab PO Q6H PRN PRN Reason: Pain, moderate (4-7) Stop: 07/07/18 22:16 Last Admin: 07/05/18 10:43 Dose: 1 tab Pantoprazole Sodium (Protonix Ec Tab) 40 mg PO DAILY [facility] Last Admin: 07/07/18 09:26 Dose: 40 mg Potassium Chloride (Potassium Chloride Oral Soln) 40 meq PO DAILY [facility] Stop: 07/07/18 23:59 Last Admin: 07/07/18 09:26 Dose: 40 meq Potassium Phos/Sodium Phos (Neutra-Phos) 1 pkt PO DAILY [facility] Last Admin: 07/07/18 09:26 Dose: 1 pkt Tamsulosin HCl (Flomax) 0.4 mg PO DAILY [facility] Last Admin: 07/07/18 09:26 Dose: 0.4 mg - Labs Labs: 07/07/18 11:51 07/07/18 06:13 PT 13.5 SECONDS (9.7-12.2) H 06/21/18 10:43 INR 1.2 06/21/18 10:43 APTT 29 SECONDS (21-34) 06/21/18 10:43 - Head Exam Head Exam: ATRAUMATIC - Eye Exam Eye Exam: Normal appearance - ENT Exam ENT Exam: Mucous Membranes Dry - Respiratory Exam Respiratory Exam: NORMAL BREATHING PATTERN - Cardiovascular Exam Cardiovascular Exam: +S1, +S2 - GI/Abdominal Exam GI & Abdominal Exam: Normal Bowel Sounds Assessment and Plan (1) Leukocytosis Assessment & Plan: on antibiotics flow cytometery suggestive of reactive leukocytosis awaiting PCR on tcell population Status: Acute (2) Anemia Assessment & Plan: chronic disease Status: Acute (3) APL (acute promyelocytic leukemia) Assessment & Plan: flow cytometery negative for APL recurrence Status: Acute
[2018-07-08] MEDS: Albuterol-Ipratrop 3 mg / 0.5 (3 ml) UD INH SCH ×6 (00:46→20:48)
[2018-07-08] MEDS: metroNIDAZOLE IV 500 mg/100 ml 500 MG/100 ML BAG IVPB SCH ×3 (02:30→19:00)
[2018-07-08] MEDS: Ciprofloxacin 400mg/200ml D5W 400 MG/200 ML BAG IVPB SCH ×2 (05:00→17:45)
[2018-07-08] MEDS: guaiFENesin 600 mg ER Tab PO SCH ×2 (06:10→19:00)
[2018-07-08] MEDS: Pantoprazole 40 mg EC Tab PO SCH (09:56)
[2018-07-08] MEDS: Potassium & Sodium Phosphate PO SCH (09:56)
[2018-07-08] MEDS: Ammonium Lactate 12% Lotion (225 g) EXT SCH ×2 (09:57→17:47)
[2018-07-08] MEDS: Clotrimazole 1% Cream(30 gm) TOP SCH ×2 (09:57→17:47)
[2018-07-08] MEDS: Nystatin 100,000 Units/ml Oral Susp 5 ml UD PO SCH ×4 (10:06→22:01)
--- NOTE | 2018-07-08 12:36 | CP.PCM.PN ---
Subjective - Date & Time of Evaluation Date of Evaluation: 07/08/18 Time of Evaluation: 12:35 - Subjective Subjective: CHIEF COMPLAINTS TODAY : S/P L INGUINAL SURGERY No complaints ROS. HEENT : N. Resp : No cough, wheezing ,pleuritic CP ,or hemoptysis Cardio : No anginal CP, PND, orthopnea, palpitation GI : No abd.pain, n/v ,diarrhea or GI bleeding . 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 Musculoskel : No joint swelling , Derm rash all over the body Psych : Normal affect. Ext : No swelling ,calf pain PE. Pt. is alert awake in no distress. V.S As noted in the chart Head ,ear nose,throat and eyes : Normal. Neck : Supple with normal carotids. Lungs: Clear air entry. Heart : S1 & S2 normal with S4. No murmur. Abd : Soft non tender mild distention Neuro : Moves all ext. with no localized deficit. Ext : No edema with intact pulses.Non tender calves Derm : Generalized erythema with exfoliation LABS/RADIOLOGY ASSESSMENT/PLAN : patient is ambulating Discussed with family, do not want rehab, will take the patient home as outpatient therapy Objective - Vital Signs/Intake and Output Vital Signs (last 24 hours): Temp Pulse Resp BP Pulse Ox 98.2 F 92 H 20 128/65 98 07/08/18 08:00 07/08/18 08:00 07/08/18 08:00 07/08/18 08:00 07/08/18 08:00 Intake and Output: 07/08/18 07/08/18 11:59 23:59 Intake Total 500 Balance 500 - Medications Medications: Current Medications Al Hydrox/Mg Hydrox/Simethicone (Maalox 30 Ml) 30 ml PO Q4 PRN PRN Reason: Indigestion / Heartburn Last Admin: 06/30/18 18:00 Dose: 30 ml Albuterol/Ipratropium (Duoneb 3 Mg/0.5 Mg (3 Ml) Ud) 3 ml INH RQ4 [facility] Last Admin: 07/08/18 08:46 Dose: Not Given Benzocaine/Menthol (Cepacol Sore Throat) 1 darryl MT Q4H PRN PRN Reason: Sore Throat Clotrimazole (Lotrimin 1%) 0 gm TOP BID [facility] Last Admin: 07/08/18 09:57 Dose: 1 appl Emollient Ointment (Vaseline Oint) 30 gm TOP Q6H PRN PRN Reason: Dry skin Last Admin: 07/05/18 10:45 Dose: 30 gm Gabapentin (Neurontin) 300 mg PO BID [facility] Last Admin: 07/08/18 09:56 Dose: 300 mg Guaifenesin (Mucinex La) 600 mg PO Q12H [facility] Last Admin: 07/08/18 06:10 Dose: 600 mg Hydrocortisone Sodium Succinate (Solu-Cortef) 50 mg IV DAILY [facility] Last Admin: 07/08/18 10:06 Dose: 50 mg Ciprofloxacin (Cipro 400mg/200ml Dsw) 400 mg in 200 mls @ 133 mls/hr IVPB Q12H [facility]; Protocol Last Admin: 07/08/18 05:00 Dose: 133 mls/hr Metronidazole (Flagyl) 500 mg in 100 mls @ 100 mls/hr IVPB Q8H [facility]; Protocol Last Admin: 07/08/18 10:15 Dose: 100 mls/hr Lactic Acid (Lac-Hydrin 12% Lotion (225 G)) 1 gm EXT BID [facility] Last Admin: 07/08/18 09:57 Dose: 1 applic Morphine Sulfate (Morphine) 2 mg IVP Q4 PRN PRN Reason: Pain, moderate (4-7) Last Admin: 07/05/18 01:03 Dose: 2 mg Nystatin (Nystatin Oral Susp) 5 ml PO QID [facility] Last Admin: 07/08/18 10:06 Dose: 5 ml Ondansetron HCl (Zofran Inj) 4 mg IVP Q6 PRN PRN Reason: Nausea/Vomiting Last Admin: 07/02/18 21:59 Dose: 4 mg Pantoprazole Sodium (Protonix Ec Tab) 40 mg PO DAILY [facility] Last Admin: 07/08/18 09:56 Dose: 40 mg Potassium Phos/Sodium Phos (Neutra-Phos) 1 pkt PO DAILY [facility] Last Admin: 07/08/18 09:56 Dose: 1 pkt Tamsulosin HCl (Flomax) 0.4 mg PO DAILY [facility] Last Admin: 07/08/18 09:56 Dose: 0.4 mg - Labs Labs: 07/07/18 11:51 07/07/18 06:13 PT 13.5 SECONDS (9.7-12.2) H 06/21/18 10:43 INR 1.2 06/21/18 10:43 APTT 29 SECONDS (21-34) 06/21/18 10:43
--- NOTE | 2018-07-08 21:59 | CP.PCM.PN ---
Subjective - Date & Time of Evaluation Date of Evaluation: 07/08/18 Time of Evaluation: 21:58 - Subjective Subjective: POD # 4 VS NOTED. AAO. NO NEW COMPLAINTS ROS. HEENT : N. Resp : No cough, wheezing ,pleuritic CP ,or hemoptysis Cardio : No anginal CP, PND, orthopnea, palpitation GI : No abd.pain, n/v ,diarrhea or GI bleeding . 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 Musculoskel : No joint swelling , Derm rash all over the body Psych : Normal affect. Ext : No swelling ,calf pain PE. Pt. is in no distress. V.S As noted in the chart Head ,ear nose,throat and eyes : Normal Neck : Supple with normal carotids. Lungs: fair air entry Heart : S1 & S2 normal with S4. No murmur. Abd : Soft , POST OPERATIVE Neuro : Moves all ext. with no localized deficit. Ext : No edema with intact pulses.Non tender calves .LT.POST OPERTIVE GROIN SUTURE-LINE OK. Derm : Generalized erythema with exfoliation MUCH IMPROVED, SKIN DRYING OFF AND PEELING. LABS/RADIOLOGY: REVIEWED WBC 23.8 H/H 10.0/ 31.5 BLOOD CULTURE 06/26/18 -VE TO DATE MRSA -VE SCREEN Objective - Vital Signs/Intake and Output Vital Signs (last 24 hours): Temp Pulse Resp BP Pulse Ox 97.6 F 88 20 123/63 95 07/08/18 18:48 07/08/18 18:48 07/08/18 18:48 07/08/18 18:48 07/08/18 18:48 Intake and Output: 07/08/18 07/09/18 18:59 06:59 Intake Total 500 Balance 500 - Medications Medications: Current Medications Al Hydrox/Mg Hydrox/Simethicone (Maalox 30 Ml) 30 ml PO Q4 PRN PRN Reason: Indigestion / Heartburn Last Admin: 06/30/18 18:00 Dose: 30 ml Albuterol/Ipratropium (Duoneb 3 Mg/0.5 Mg (3 Ml) Ud) 3 ml INH RQ4 [facility] Last Admin: 07/08/18 20:48 Dose: 3 ml Benzocaine/Menthol (Cepacol Sore Throat) 1 darryl MT Q4H PRN PRN Reason: Sore Throat Clotrimazole (Lotrimin 1%) 0 gm TOP BID [facility] Last Admin: 07/08/18 17:47 Dose: 1 appl Emollient Ointment (Vaseline Oint) 30 gm TOP Q6H PRN PRN Reason: Dry skin Last Admin: 07/05/18 10:45 Dose: 30 gm Gabapentin (Neurontin) 300 mg PO BID [facility] Last Admin: 07/08/18 17:48 Dose: 300 mg Guaifenesin (Mucinex La) 600 mg PO Q12H [facility] Last Admin: 07/08/18 06:10 Dose: 600 mg Hydrocortisone Sodium Succinate (Solu-Cortef) 50 mg IV DAILY [facility] Last Admin: 07/08/18 10:06 Dose: 50 mg Ciprofloxacin (Cipro 400mg/200ml Dsw) 400 mg in 200 mls @ 133 mls/hr IVPB Q12H [facility]; Protocol Last Admin: 07/08/18 17:45 Dose: 133 mls/hr Metronidazole (Flagyl) 500 mg in 100 mls @ 100 mls/hr IVPB Q8H [facility]; Protocol Last Admin: 07/08/18 10:15 Dose: 100 mls/hr Lactic Acid (Lac-Hydrin 12% Lotion (225 G)) 1 gm EXT BID [facility] Last Admin: 07/08/18 17:47 Dose: 1 applic Morphine Sulfate (Morphine) 2 mg IVP Q4 PRN PRN Reason: Pain, moderate (4-7) Last Admin: 07/05/18 01:03 Dose: 2 mg Nystatin (Nystatin Oral Susp) 5 ml PO QID [facility] Last Admin: 07/08/18 17:48 Dose: 5 ml Ondansetron HCl (Zofran Inj) 4 mg IVP Q6 PRN PRN Reason: Nausea/Vomiting Last Admin: 07/02/18 21:59 Dose: 4 mg Pantoprazole Sodium (Protonix Ec Tab) 40 mg PO DAILY [facility] Last Admin: 07/08/18 09:56 Dose: 40 mg Potassium Phos/Sodium Phos (Neutra-Phos) 1 pkt PO DAILY [facility] Last Admin: 07/08/18 09:56 Dose: 1 pkt Tamsulosin HCl (Flomax) 0.4 mg PO DAILY [facility] Last Admin: 07/08/18 09:56 Dose: 0.4 mg - Labs Labs: 07/07/18 11:51 07/07/18 06:13 PT 13.5 SECONDS (9.7-12.2) H 06/21/18 10:43 INR 1.2 06/21/18 10:43 APTT 29 SECONDS (21-34) 06/21/18 10:43 Assessment and Plan (1) Inguinal hernia recurrent unilateral Status: Acute (2) SBO (small bowel obstruction) Status: Acute (3) Incarcerated left inguinal hernia Status: Acute (4) Pneumonia Status: Acute (5) Leukocytosis Status: Acute (6) Generalized rash Status: Acute (7) APL (acute promyelocytic leukemia) Status: Acute - Assessment and Plan (Free Text) Plan: PLAN: ON IV CIPRO 400MG IVPB Q12 HRLY 06/25/18 CONTINUE IV FLAGYL 500MG IV Q 8HRLY 06/23/18 PO NYSTATIN 5ML PO S/S TID.07/07/18 LWC PER SURGERY. CASE DISCUSSED WITH PMD AND STAFF. IF H/H STABLE WILL CONSIDER POSSIBLE D/C ON TUESDAY IF OK BY SURGERYAND ALSO STOPPING ABX.
--- NOTE | 2018-07-08 22:38 | CP.PCM.PN ---
Subjective - Date & Time of Evaluation Date of Evaluation: 07/08/18 Time of Evaluation: 17:00 - Subjective Subjective: No complaints. Objective - Vital Signs/Intake and Output Vital Signs (last 24 hours): Temp Pulse Resp BP Pulse Ox 97.6 F 88 20 123/63 95 07/08/18 18:48 07/08/18 18:48 07/08/18 18:48 07/08/18 18:48 07/08/18 18:48 Intake and Output: 07/08/18 07/09/18 18:59 06:59 Intake Total 500 Balance 500 - Medications Medications: Current Medications Al Hydrox/Mg Hydrox/Simethicone (Maalox 30 Ml) 30 ml PO Q4 PRN PRN Reason: Indigestion / Heartburn Last Admin: 06/30/18 18:00 Dose: 30 ml Albuterol/Ipratropium (Duoneb 3 Mg/0.5 Mg (3 Ml) Ud) 3 ml INH RQ4 [facility] Last Admin: 07/08/18 20:48 Dose: 3 ml Benzocaine/Menthol (Cepacol Sore Throat) 1 darryl MT Q4H PRN PRN Reason: Sore Throat Clotrimazole (Lotrimin 1%) 0 gm TOP BID [facility] Last Admin: 07/08/18 17:47 Dose: 1 appl Emollient Ointment (Vaseline Oint) 30 gm TOP Q6H PRN PRN Reason: Dry skin Last Admin: 07/05/18 10:45 Dose: 30 gm Gabapentin (Neurontin) 300 mg PO BID [facility] Last Admin: 07/08/18 17:48 Dose: 300 mg Guaifenesin (Mucinex La) 600 mg PO Q12H [facility] Last Admin: 07/08/18 19:00 Dose: 600 mg Hydrocortisone Sodium Succinate (Solu-Cortef) 50 mg IV DAILY [facility] Last Admin: 07/08/18 10:06 Dose: 50 mg Ciprofloxacin (Cipro 400mg/200ml Dsw) 400 mg in 200 mls @ 133 mls/hr IVPB Q12H [facility]; Protocol Last Admin: 07/08/18 17:45 Dose: 133 mls/hr Metronidazole (Flagyl) 500 mg in 100 mls @ 100 mls/hr IVPB Q8H [facility]; Protocol Last Admin: 07/08/18 19:00 Dose: 100 mls/hr Lactic Acid (Lac-Hydrin 12% Lotion (225 G)) 1 gm EXT BID [facility] Last Admin: 07/08/18 17:47 Dose: 1 applic Morphine Sulfate (Morphine) 2 mg IVP Q4 PRN PRN Reason: Pain, moderate (4-7) Last Admin: 07/05/18 01:03 Dose: 2 mg Nystatin (Nystatin Oral Susp) 5 ml PO QID [facility] Last Admin: 07/08/18 22:01 Dose: 5 ml Ondansetron HCl (Zofran Inj) 4 mg IVP Q6 PRN PRN Reason: Nausea/Vomiting Last Admin: 07/02/18 21:59 Dose: 4 mg Pantoprazole Sodium (Protonix Ec Tab) 40 mg PO DAILY [facility] Last Admin: 07/08/18 09:56 Dose: 40 mg Potassium Phos/Sodium Phos (Neutra-Phos) 1 pkt PO DAILY [facility] Last Admin: 07/08/18 09:56 Dose: 1 pkt Tamsulosin HCl (Flomax) 0.4 mg PO DAILY [facility] Last Admin: 07/08/18 09:56 Dose: 0.4 mg - Labs Labs: 07/07/18 11:51 07/07/18 06:13 PT 13.5 SECONDS (9.7-12.2) H 06/21/18 10:43 INR 1.2 06/21/18 10:43 APTT 29 SECONDS (21-34) 06/21/18 10:43 - Head Exam Head Exam: ATRAUMATIC - Eye Exam Eye Exam: Normal appearance - ENT Exam ENT Exam: Mucous Membranes Dry - Respiratory Exam Respiratory Exam: NORMAL BREATHING PATTERN - Cardiovascular Exam Cardiovascular Exam: +S1, +S2 - GI/Abdominal Exam GI & Abdominal Exam: Normal Bowel Sounds Assessment and Plan (1) Leukocytosis Assessment & Plan: on antibiotics flow cytometery suggestive of reactive leukocytosis Status: Acute (2) Anemia Assessment & Plan: chronic disease Status: Acute (3) APL (acute promyelocytic leukemia) Assessment & Plan: no evidence of recurrence by flow cytometery Status: Acute
[2018-07-09] MEDS: Albuterol-Ipratrop 3 mg / 0.5 (3 ml) UD INH SCH ×5 (00:17→23:52)
[2018-07-09] MEDS: metroNIDAZOLE IV 500 mg/100 ml 500 MG/100 ML BAG IVPB SCH ×3 (03:00→18:01)
[2018-07-09] MEDS: Ciprofloxacin 400mg/200ml D5W 400 MG/200 ML BAG IVPB SCH ×2 (05:00→17:06)
[2018-07-09] MEDS: guaiFENesin 600 mg ER Tab PO SCH ×2 (06:00→18:01)
[2018-07-09] MEDS: Pantoprazole 40 mg EC Tab PO SCH (10:16)
[2018-07-09] MEDS: Potassium & Sodium Phosphate PO SCH (10:16)
[2018-07-09] MEDS: Nystatin 100,000 Units/ml Oral Susp 5 ml UD PO SCH ×4 (10:17→21:20)
[2018-07-09] MEDS: Ammonium Lactate 12% Lotion (225 g) EXT SCH ×2 (10:19→17:10)
[2018-07-09] MEDS: Clotrimazole 1% Cream(30 gm) TOP SCH ×2 (10:20→17:11)
--- NOTE | 2018-07-09 15:56 | CP.PCM.PN ---
Subjective - Date & Time of Evaluation Date of Evaluation: 07/09/18 Time of Evaluation: 15:55 - Subjective Subjective: CHIEF COMPLAINTS TODAY : S/P L INGUINAL SURGERY No complaints PLT 61 k , no visible bleed ROS. HEENT : N. Resp : No cough, wheezing ,pleuritic CP ,or hemoptysis Cardio : No anginal CP, PND, orthopnea, palpitation GI : No abd.pain, n/v ,diarrhea or GI bleeding . 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 Musculoskel : No joint swelling , Derm rash all over the body Psych : Normal affect. Ext : No swelling ,calf pain PE. Pt. is alert awake in no distress. V.S As noted in the chart Head ,ear nose,throat and eyes : Normal. Neck : Supple with normal carotids. Lungs: Clear air entry. Heart : S1 & S2 normal with S4. No murmur. Abd : Soft non tender mild distention Neuro : Moves all ext. with no localized deficit. Ext : No edema with intact pulses.Non tender calves Derm : Generalized erythema with exfoliation LABS/RADIOLOGY ASSESSMENT/PLAN : patient is ambulating Discussed with family, do not want rehab, will take the patient home as outpatient therapy Objective - Vital Signs/Intake and Output Vital Signs (last 24 hours): Temp Pulse Resp BP Pulse Ox 97.5 F L 83 20 135/71 100 07/09/18 08:00 07/09/18 08:00 07/09/18 08:00 07/09/18 08:00 07/09/18 08:00 Intake and Output: 07/09/18 07/09/18 11:59 23:59 Intake Total 700 600 Balance 700 600 - Medications Medications: Current Medications Al Hydrox/Mg Hydrox/Simethicone (Maalox 30 Ml) 30 ml PO Q4 PRN PRN Reason: Indigestion / Heartburn Last Admin: 06/30/18 18:00 Dose: 30 ml Albuterol/Ipratropium (Duoneb 3 Mg/0.5 Mg (3 Ml) Ud) 3 ml INH RQ4 [facility] Last Admin: 07/09/18 12:03 Dose: 3 ml Benzocaine/Menthol (Cepacol Sore Throat) 1 darryl MT Q4H PRN PRN Reason: Sore Throat Clotrimazole (Lotrimin 1%) 0 gm TOP BID [facility] Last Admin: 07/09/18 10:20 Dose: 1 appl Emollient Ointment (Vaseline Oint) 30 gm TOP Q6H PRN PRN Reason: Dry skin Last Admin: 07/05/18 10:45 Dose: 30 gm Gabapentin (Neurontin) 300 mg PO BID [facility] Last Admin: 07/09/18 10:16 Dose: 300 mg Guaifenesin (Mucinex La) 600 mg PO Q12H [facility] Last Admin: 07/09/18 06:00 Dose: 600 mg Hydrocortisone Sodium Succinate (Solu-Cortef) 50 mg IV DAILY [facility] Last Admin: 07/09/18 10:17 Dose: 50 mg Ciprofloxacin (Cipro 400mg/200ml Dsw) 400 mg in 200 mls @ 133 mls/hr IVPB Q12H [facility]; Protocol Last Admin: 07/09/18 05:00 Dose: 133 mls/hr Metronidazole (Flagyl) 500 mg in 100 mls @ 100 mls/hr IVPB Q8H [facility]; Protocol Last Admin: 07/09/18 10:27 Dose: 100 mls/hr Lactic Acid (Lac-Hydrin 12% Lotion (225 G)) 1 gm EXT BID [facility] Last Admin: 07/09/18 10:19 Dose: 1 applic Morphine Sulfate (Morphine) 2 mg IVP Q4 PRN PRN Reason: Pain, moderate (4-7) Last Admin: 07/05/18 01:03 Dose: 2 mg Nystatin (Nystatin Oral Susp) 5 ml PO QID [facility] Last Admin: 07/09/18 13:45 Dose: 5 ml Ondansetron HCl (Zofran Inj) 4 mg IVP Q6 PRN PRN Reason: Nausea/Vomiting Last Admin: 07/02/18 21:59 Dose: 4 mg Pantoprazole Sodium (Protonix Ec Tab) 40 mg PO DAILY [facility] Last Admin: 07/09/18 10:16 Dose: 40 mg Potassium Phos/Sodium Phos (Neutra-Phos) 1 pkt PO DAILY [facility] Last Admin: 07/09/18 10:16 Dose: 1 pkt Tamsulosin HCl (Flomax) 0.4 mg PO DAILY [facility] Last Admin: 07/09/18 10:16 Dose: 0.4 mg - Labs Labs: 07/07/18 11:51 07/07/18 06:13 PT 13.5 SECONDS (9.7-12.2) H 06/21/18 10:43 INR 1.2 06/21/18 10:43 APTT 29 SECONDS (21-34) 06/21/18 10:43
--- NOTE | 2018-07-09 22:50 | CP.PCM.PN ---
Subjective - Date & Time of Evaluation Date of Evaluation: 07/09/18 Time of Evaluation: 22:50 - Subjective Subjective: POD # 5 VS NOTED. AAO. NO NEW COMPLAINTS TOLERATING DIET ROS. HEENT : N. Resp : No cough, wheezing ,pleuritic CP ,or hemoptysis Cardio : No anginal CP, PND, orthopnea, palpitation GI : No abd.pain, n/v ,diarrhea or GI bleeding . [employer] : No headache, vertigo, focal deficit. Musculoskel : No joint swelling , Derm rash all over the body Psych : Normal affect. Ext : No swelling ,calf pain PE. Pt. is in no distress. V.S As noted in the chart Head ,ear nose,throat and eyes : Normal Neck : Supple with normal carotids. Lungs: fair air entry Heart : S1 & S2 normal with S4. No murmur. Abd : Soft , POST OPERATIVE Neuro : Moves all ext. with no localized deficit. Ext : No edema with intact pulses.Non tender calves .LT.POST OPERTIVE GROIN SUTURE-LINE OK. Derm : Generalized erythema with exfoliation MUCH IMPROVED, SKIN DRYING OFF AND PEELING. LABS/RADIOLOGY: REVIEWED; NO NEW LABS 07/07/18 -WBC 23.8 H/H 10.0/ 31.5 BLOOD CULTURE 06/26/18 -VE TO DATE MRSA -VE SCREEN Objective - Vital Signs/Intake and Output Vital Signs (last 24 hours): Temp Pulse Resp BP Pulse Ox 97.3 F L 86 20 137/81 100 07/09/18 16:00 07/09/18 16:00 07/09/18 16:00 07/09/18 16:00 07/09/18 16:00 Intake and Output: 07/09/18 07/10/18 18:59 06:59 Intake Total 600 Balance 600 - Medications Medications: Current Medications Al Hydrox/Mg Hydrox/Simethicone (Maalox 30 Ml) 30 ml PO Q4 PRN PRN Reason: Indigestion / Heartburn Last Admin: 06/30/18 18:00 Dose: 30 ml Albuterol/Ipratropium (Duoneb 3 Mg/0.5 Mg (3 Ml) Ud) 3 ml INH RQ4 [facility] Last Admin: 07/09/18 16:44 Dose: 3 ml Benzocaine/Menthol (Cepacol Sore Throat) 1 darryl MT Q4H PRN PRN Reason: Sore Throat Clotrimazole (Lotrimin 1%) 0 gm TOP BID [facility] Last Admin: 07/09/18 17:11 Dose: 1 appl Emollient Ointment (Vaseline Oint) 30 gm TOP Q6H PRN PRN Reason: Dry skin Last Admin: 07/05/18 10:45 Dose: 30 gm Gabapentin (Neurontin) 300 mg PO BID [facility] Last Admin: 07/09/18 17:05 Dose: 300 mg Guaifenesin (Mucinex La) 600 mg PO Q12H [facility] Last Admin: 07/09/18 18:01 Dose: 600 mg Hydrocortisone Sodium Succinate (Solu-Cortef) 50 mg IV DAILY [facility] Last Admin: 07/09/18 10:17 Dose: 50 mg Ciprofloxacin (Cipro 400mg/200ml Dsw) 400 mg in 200 mls @ 133 mls/hr IVPB Q12H [facility]; Protocol Last Admin: 07/09/18 17:06 Dose: 133 mls/hr Metronidazole (Flagyl) 500 mg in 100 mls @ 100 mls/hr IVPB Q8H [facility]; Protocol Last Admin: 07/09/18 18:01 Dose: 100 mls/hr Lactic Acid (Lac-Hydrin 12% Lotion (225 G)) 1 gm EXT BID [facility] Last Admin: 07/09/18 17:10 Dose: 1 applic Morphine Sulfate (Morphine) 2 mg IVP Q4 PRN PRN Reason: Pain, moderate (4-7) Last Admin: 07/05/18 01:03 Dose: 2 mg Nystatin (Nystatin Oral Susp) 5 ml PO QID [facility] Last Admin: 07/09/18 21:20 Dose: 5 ml Ondansetron HCl (Zofran Inj) 4 mg IVP Q6 PRN PRN Reason: Nausea/Vomiting Last Admin: 07/02/18 21:59 Dose: 4 mg Pantoprazole Sodium (Protonix Ec Tab) 40 mg PO DAILY [facility] Last Admin: 07/09/18 10:16 Dose: 40 mg Potassium Phos/Sodium Phos (Neutra-Phos) 1 pkt PO DAILY [facility] Last Admin: 07/09/18 10:16 Dose: 1 pkt Tamsulosin HCl (Flomax) 0.4 mg PO DAILY [facility] Last Admin: 07/09/18 10:16 Dose: 0.4 mg - Labs Labs: 07/07/18 11:51 07/07/18 06:13 PT 13.5 SECONDS (9.7-12.2) H 06/21/18 10:43 INR 1.2 06/21/18 10:43 APTT 29 SECONDS (21-34) 06/21/18 10:43 Assessment and Plan (1) Inguinal hernia recurrent unilateral Status: Acute (2) SBO (small bowel obstruction) Status: Acute (3) Incarcerated left inguinal hernia Status: Acute (4) Pneumonia Status: Acute (5) Leukocytosis Status: Acute (6) Generalized rash Status: Acute (7) APL (acute promyelocytic leukemia) Status: Acute - Assessment and Plan (Free Text) Plan: PLAN: ON IV CIPRO 400MG IVPB Q12 HRL[facility] 06/25/18 CONTINUE IV FLAGYL 500MG IV Q 8HRLY 06/23/18 PO NYSTATIN 5ML PO S/S TID.07/07/18 CHECK CBC WDIFF / BMP FRANK LWC PER SURGERY. CASE DISCUSSED WITH PMD AND STAFF. IF PT STABLE , AND BLOOD WORKS OK -WILL DC ABX .
[2018-07-10] MEDS: metroNIDAZOLE IV 500 mg/100 ml 500 MG/100 ML BAG IVPB SCH ×2 (03:45→11:56)
[2018-07-10] MEDS: Ciprofloxacin 400mg/200ml D5W 400 MG/200 ML BAG IVPB SCH (05:47)
[2018-07-10] MEDS: guaiFENesin 600 mg ER Tab PO SCH ×2 (06:19→19:00)
[2018-07-10 07:15] LABS: BASO # 0.2 K/uL (0.0-0.2); BASO % 0.9 % (0.0-2.0); EOS # 0.2 K/uL (0.0-0.7); EOS % 1.2 % (0.0-4.0); HEMOGLOBIN 8.4 g/dL (12.0-18.0); LYMPH # 7.5 K/uL (1.0-4.3); LYMPH % 46.9 % (20.0-40.0); MEAN CELL VOLUME 85.1 fL (80.0-94.0); MEAN PLATELET VOLUME 8.7 fL (7.2-11.7); MONO # 1.6 K/uL (0.0-0.8); MONO % 10.2 % (0.0-10.0); NEUT # 6.5 K/uL (1.8-7.0); NEUT % 40.8 % (50.0-75.0); NRBC % 1.4 % (0.0-2.0); RBC 3.01 Mil/uL (4.40-5.90); RED CELL DISTRIBUTION WIDTH 17.5 % (11.5-14.5)
[2018-07-10 07:35] LABS: BLOOD UREA NITROGEN 5 mg/dL (9-20); CALCIUM 7.5 mg/dl (8.6-10.4); GFR NON-AFRICAN AMERICAN > 60
[2018-07-10] MEDS: Albuterol-Ipratrop 3 mg / 0.5 (3 ml) UD INH SCH ×4 (08:21→21:00)
[2018-07-10] MEDS: Potassium & Sodium Phosphate PO SCH (09:23)
[2018-07-10] MEDS: Pantoprazole 40 mg EC Tab PO SCH (09:23)
[2018-07-10] MEDS: Nystatin 100,000 Units/ml Oral Susp 5 ml UD PO SCH ×4 (09:23→21:35)
[2018-07-10] MEDS: Ammonium Lactate 12% Lotion (225 g) EXT SCH ×2 (09:30→17:36)
[2018-07-10] MEDS: Clotrimazole 1% Cream(30 gm) TOP SCH ×2 (09:30→17:36)
[2018-07-10] MEDS ORDERED: Potassium Chloride 20 mEq/15 ml LIQ UD PO ONE (11:00)
[2018-07-10] MEDS ORDERED: guaiFENesin 200 mg/10 ml Syrup UD PO PRN (11:07)
--- NOTE | 2018-07-10 11:22 | CP.PCM.PN ---
Subjective - Date & Time of Evaluation Date of Evaluation: 07/10/18 Time of Evaluation: 11:22 - Subjective Subjective: POD # 6 VS NOTED. AAO. FEELS WEAK C/O WEBB TOLERATING DIET ROS. HEENT : N. Resp : No cough, wheezing ,pleuritic CP ,or hemoptysis Cardio : No anginal CP, PND, orthopnea, palpitation GI : No abd.pain, n/v ,diarrhea or GI bleeding . ASSISTANT IN NURSING : No headache, vertigo, focal deficit. Musculoskel : No joint swelling , Derm rash all over the body Psych : Normal affect. Ext : No swelling ,calf pain PE. Pt. is in no distress. V.S As noted in the chart Head ,ear nose,throat and eyes : Normal Neck : Supple with normal carotids. Lungs: fair air entry Heart : S1 & S2 normal with S4. No murmur. Abd : Soft , POST OPERATIVE Neuro : Moves all ext. with no localized deficit. Ext : No edema with intact pulses.Non tender calves .LT.POST OPERTIVE GROIN SUTURE-LINE OK. Derm : Generalized erythema with exfoliation MUCH IMPROVED, SKIN DRYING OFF AND PEELING. LABS/RADIOLOGY: REVIEWED; WBC IMPROVING BLOOD CULTURE 06/26/18 -VE TO DATE MRSA -VE SCREEN Objective - Vital Signs/Intake and Output Vital Signs (last 24 hours): Temp Pulse Resp BP Pulse Ox 98 F 82 202 H 129/75 98 07/10/18 07:56 07/10/18 07:56 07/10/18 07:56 07/10/18 07:56 07/10/18 07:56 Intake and Output: 07/10/18 07/10/18 06:59 18:59 Intake Total 500 Balance 500 - Medications Medications: Current Medications Acetylcysteine (Acetylcysteine 20%) 4 ml INH RQ6 [facility] Al Hydrox/Mg Hydrox/Simethicone (Maalox 30 Ml) 30 ml PO Q4 PRN PRN Reason: Indigestion / Heartburn Last Admin: 06/30/18 18:00 Dose: 30 ml Albuterol/Ipratropium (Duoneb 3 Mg/0.5 Mg (3 Ml) Ud) 3 ml INH RQ4 [facility] Last Admin: 07/10/18 08:21 Dose: 3 ml Benzocaine/Menthol (Cepacol Sore Throat) 1 darryl MT Q4H PRN PRN Reason: Sore Throat Clotrimazole (Lotrimin 1%) 0 gm TOP BID [facility] Last Admin: 07/10/18 09:30 Dose: 1 appl Emollient Ointment (Vaseline Oint) 30 gm TOP Q6H PRN PRN Reason: Dry skin Last Admin: 07/05/18 10:45 Dose: 30 gm Gabapentin (Neurontin) 300 mg PO BID [facility] Last Admin: 07/10/18 09:22 Dose: 300 mg Guaifenesin (Mucinex La) 600 mg PO Q12H [facility] Last Admin: 07/10/18 06:19 Dose: 600 mg Guaifenesin (Robitussin) 200 mg PO Q4H PRN PRN Reason: Cough and congestion Hydrocortisone Sodium Succinate (Solu-Cortef) 50 mg IV DAILY [facility] Last Admin: 07/10/18 09:23 Dose: 50 mg Ciprofloxacin (Cipro 400mg/200ml Dsw) 400 mg in 200 mls @ 133 mls/hr IVPB Q12H [facility]; Protocol Last Admin: 07/10/18 05:47 Dose: 133 mls/hr Metronidazole (Flagyl) 500 mg in 100 mls @ 100 mls/hr IVPB Q8H [facility]; Protocol Last Admin: 07/10/18 03:45 Dose: 100 mls/hr Lactic Acid (Lac-Hydrin 12% Lotion (225 G)) 1 gm EXT BID [facility] Last Admin: 07/10/18 09:30 Dose: 1 applic Morphine Sulfate (Morphine) 2 mg IVP Q4 PRN PRN Reason: Pain, moderate (4-7) Last Admin: 07/05/18 01:03 Dose: 2 mg Nystatin (Nystatin Oral Susp) 5 ml PO QID [facility] Last Admin: 07/10/18 09:23 Dose: 5 ml Ondansetron HCl (Zofran Inj) 4 mg IVP Q6 PRN PRN Reason: Nausea/Vomiting Last Admin: 07/02/18 21:59 Dose: 4 mg Pantoprazole Sodium (Protonix Ec Tab) 40 mg PO DAILY [facility] Last Admin: 07/10/18 09:23 Dose: 40 mg Potassium Phos/Sodium Phos (Neutra-Phos) 1 pkt PO DAILY [facility] Last Admin: 07/10/18 09:23 Dose: 1 pkt Tamsulosin HCl (Flomax) 0.4 mg PO DAILY [facility] Last Admin: 07/10/18 09:23 Dose: 0.4 mg - Labs Labs: 07/10/18 07:04 07/10/18 07:04 PT 13.5 SECONDS (9.7-12.2) H 06/21/18 10:43 INR 1.2 06/21/18 10:43 APTT 29 SECONDS (21-34) 06/21/18 10:43 Assessment and Plan (1) Inguinal hernia recurrent unilateral Status: Acute (2) SBO (small bowel obstruction) Status: Acute (3) Incarcerated left inguinal hernia Status: Acute (4) Pneumonia Status: Acute (5) Leukocytosis Status: Acute (6) Generalized rash Status: Acute (7) APL (acute promyelocytic leukemia) Status: Acute - Assessment and Plan (Free Text) Plan: PLAN: DC IV ABX PT DAILY ATBEDSIDE. CASE DISCUSSED WITH PMD AND STAFF.
--- NOTE | 2018-07-10 11:30 | CP.PCM.PN ---
Subjective - Date & Time of Evaluation Date of Evaluation: 07/10/18 Time of Evaluation: 11:30 - Subjective Subjective: CHIEF COMPLAINTS TODAY : S/P L INGUINAL SURGERY No complaints PLT 61 k , no visible bleed ROS. HEENT : N. Resp : No cough, wheezing ,pleuritic CP ,or hemoptysis Cardio : No anginal CP, PND, orthopnea, palpitation GI : No abd.pain, n/v ,diarrhea or GI bleeding . 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 Musculoskel : No joint swelling , Derm rash all over the body Psych : Normal affect. Ext : No swelling ,calf pain PE. Pt. is alert awake in no distress. V.S As noted in the chart Head ,ear nose,throat and eyes : Normal. Neck : Supple with normal carotids. Lungs: Clear air entry. Heart : S1 & S2 normal with S4. No murmur. Abd : Soft non tender mild distention Neuro : Moves all ext. with no localized deficit. Ext : No edema with intact pulses.Non tender calves Derm : Generalized erythema with exfoliation LABS/RADIOLOGY ASSESSMENT/PLAN : patient is ambulating Discussed with family, do not want rehab, will take the patient home as outpatient therapy Objective - Vital Signs/Intake and Output Vital Signs (last 24 hours): Temp Pulse Resp BP Pulse Ox 98 F 82 202 H 129/75 98 07/10/18 07:56 07/10/18 07:56 07/10/18 07:56 07/10/18 07:56 07/10/18 07:56 Intake and Output: 07/09/18 07/10/18 23:59 11:59 Intake Total 600 500 Balance 600 500 - Medications Medications: Current Medications Acetylcysteine (Acetylcysteine 20%) 4 ml INH RQ6 LAURA Al Hydrox/Mg Hydrox/Simethicone (Maalox 30 Ml) 30 ml PO Q4 PRN PRN Reason: Indigestion / Heartburn Last Admin: 06/30/18 18:00 Dose: 30 ml Albuterol/Ipratropium (Duoneb 3 Mg/0.5 Mg (3 Ml) Ud) 3 ml INH RQ4 LAURA Last Admin: 07/10/18 08:21 Dose: 3 ml Benzocaine/Menthol (Cepacol Sore Throat) 1 darryl MT Q4H PRN PRN Reason: Sore Throat Clotrimazole (Lotrimin 1%) 0 gm TOP BID [facility] Last Admin: 07/10/18 09:30 Dose: 1 appl Emollient Ointment (Vaseline Oint) 30 gm TOP Q6H PRN PRN Reason: Dry skin Last Admin: 07/05/18 10:45 Dose: 30 gm Gabapentin (Neurontin) 300 mg PO BID [facility] Last Admin: 07/10/18 09:22 Dose: 300 mg Guaifenesin (Mucinex La) 600 mg PO Q12H [facility] Last Admin: 07/10/18 06:19 Dose: 600 mg Guaifenesin (Robitussin) 200 mg PO Q4H PRN PRN Reason: Cough and congestion Hydrocortisone Sodium Succinate (Solu-Cortef) 50 mg IV DAILY [facility] Last Admin: 07/10/18 09:23 Dose: 50 mg Ciprofloxacin (Cipro 400mg/200ml Dsw) 400 mg in 200 mls @ 133 mls/hr IVPB Q12H [facility]; Protocol Last Admin: 07/10/18 05:47 Dose: 133 mls/hr Metronidazole (Flagyl) 500 mg in 100 mls @ 100 mls/hr IVPB Q8H [facility]; Protocol Last Admin: 07/10/18 03:45 Dose: 100 mls/hr Lactic Acid (Lac-Hydrin 12% Lotion (225 G)) 1 gm EXT BID [facility] Last Admin: 07/10/18 09:30 Dose: 1 applic Morphine Sulfate (Morphine) 2 mg IVP Q4 PRN PRN Reason: Pain, moderate (4-7) Last Admin: 07/05/18 01:03 Dose: 2 mg Nystatin (Nystatin Oral Susp) 5 ml PO QID [facility] Last Admin: 07/10/18 09:23 Dose: 5 ml Ondansetron HCl (Zofran Inj) 4 mg IVP Q6 PRN PRN Reason: Nausea/Vomiting Last Admin: 07/02/18 21:59 Dose: 4 mg Pantoprazole Sodium (Protonix Ec Tab) 40 mg PO DAILY [facility] Last Admin: 07/10/18 09:23 Dose: 40 mg Potassium Phos/Sodium Phos (Neutra-Phos) 1 pkt PO DAILY [facility] Last Admin: 07/10/18 09:23 Dose: 1 pkt Tamsulosin HCl (Flomax) 0.4 mg PO DAILY [facility] Last Admin: 07/10/18 09:23 Dose: 0.4 mg - Labs Labs: 07/10/18 07:04 07/10/18 07:04 PT 13.5 SECONDS (9.7-12.2) H 06/21/18 10:43 INR 1.2 06/21/18 10:43 APTT 29 SECONDS (21-34) 06/21/18 10:43
[2018-07-10] MEDS: Acetylcysteine 20% Inhal Soln (4ml) INH SCH (11:37)
--- NOTE | 2018-07-10 13:34 | CP.PCM.PCO ---
Physician Communication Note - Physician Communication Note Physician Communication Note: No intra-abdominal infection. Will d/c cipro/flagyl
--- NOTE | 2018-07-10 14:30 | RAD ---
Date of service: 07/10/2018 HISTORY: f/u COMPARISON: 07/06/2018 FINDINGS: LUNGS: Ill-defined opacity lower half left lung may represent dependent pleural fluid. Cannot exclude underlying infiltrate PLEURA: Small to moderate left pleural effusion. No evidence of right pleural effusion. No pneumothorax. CARDIOVASCULAR: No aortic atherosclerotic calcification present. Normal cardiac size. No congestive change. Right IJ central venous catheter. OSSEOUS STRUCTURES: No significant abnormalities. VISUALIZED UPPER ABDOMEN: Normal. OTHER FINDINGS: None. IMPRESSION: Small to moderate left pleural effusion. No definite infiltrate
[2018-07-10 16:59] VITALS: RESP 20
[2018-07-11] MEDS: Albuterol-Ipratrop 3 mg / 0.5 (3 ml) UD INH SCH ×7 (00:39→23:50)
[2018-07-11] MEDS: Acetylcysteine 20% Inhal Soln (4ml) INH SCH ×4 (05:20→19:40)
[2018-07-11] MEDS: guaiFENesin 600 mg ER Tab PO SCH ×2 (06:00→19:00)
[2018-07-11] MEDS: Clotrimazole 1% Cream(30 gm) TOP SCH ×2 (09:23→17:27)
[2018-07-11] MEDS: Ammonium Lactate 12% Lotion (225 g) EXT SCH ×2 (09:23→17:27)
[2018-07-11] MEDS: Potassium & Sodium Phosphate PO SCH (09:25)
[2018-07-11] MEDS: Pantoprazole 40 mg EC Tab PO SCH (09:25)
[2018-07-11] MEDS: Petrolatum Oint Foilpak (5 gm) TOP PRN (09:26)
[2018-07-11] MEDS: Nystatin 100,000 Units/ml Oral Susp 5 ml UD PO SCH ×2 (09:51→13:35)
--- NOTE | 2018-07-11 11:27 | CP.PCM.PN ---
Subjective - Date & Time of Evaluation Date of Evaluation: 07/11/18 Time of Evaluation: 11:26 - Subjective Subjective: CHIEF COMPLAINTS TODAY : S/P L INGUINAL SURGERY No complaints PLT 61 k , no visible bleed ROS. HEENT : N. Resp : No cough, wheezing ,pleuritic CP ,or hemoptysis Cardio : No anginal CP, PND, orthopnea, palpitation GI : No abd.pain, n/v ,diarrhea or GI bleeding . INTERIOR DESIGN PRINCIPAL : No headache, vertigo, focal deficit. Musculoskel : No joint swelling , Derm rash all over the body Psych : Normal affect. Ext : No swelling ,calf pain PE. Pt. is alert awake in no distress. V.S As noted in the chart Head ,ear nose,throat and eyes : Normal. Neck : Supple with normal carotids. Lungs: Clear air entry. Heart : S1 & S2 normal with S4. No murmur. Abd : Soft non tender mild distention Neuro : Moves all ext. with no localized deficit. Ext : No edema with intact pulses.Non tender calves Derm : Generalized erythema with exfoliation LABS/RADIOLOGY ASSESSMENT/PLAN : patient is ambulating Discussed with family, do not want rehab, will take the patient home as outpatient therapy Objective - Vital Signs/Intake and Output Vital Signs (last 24 hours): Temp Pulse Resp BP Pulse Ox 98.1 F 98 H 20 114/62 98 07/10/18 23:17 07/10/18 23:17 07/10/18 23:17 07/10/18 23:17 07/10/18 23:17 Intake and Output: 07/10/18 07/11/18 23:59 11:59 Intake Total 900 400 Balance 900 400 - Medications Medications: Current Medications Acetylcysteine (Acetylcysteine 20%) 4 ml INH RQ6 [facility] Last Admin: 07/11/18 07:05 Dose: 4 ml Al Hydrox/Mg Hydrox/Simethicone (Maalox 30 Ml) 30 ml PO Q4 PRN PRN Reason: Indigestion / Heartburn Last Admin: 06/30/18 18:00 Dose: 30 ml Albuterol/Ipratropium (Duoneb 3 Mg/0.5 Mg (3 Ml) Ud) 3 ml INH RQ4 [facility] Last Admin: 07/11/18 07:05 Dose: 3 ml Benzocaine/Menthol (Cepacol Sore Throat) 1 darryl MT Q4H PRN PRN Reason: Sore Throat Clotrimazole (Lotrimin 1%) 0 gm TOP BID [facility] Last Admin: 07/11/18 09:23 Dose: 1 appl Gabapentin (Neurontin) 300 mg PO BID [facility] Last Admin: 07/11/18 09:25 Dose: 300 mg Guaifenesin (Mucinex La) 600 mg PO Q12H [facility] Last Admin: 07/11/18 06:00 Dose: 600 mg Guaifenesin (Robitussin) 200 mg PO Q4H PRN PRN Reason: Cough and congestion Hydrocortisone Sodium Succinate (Solu-Cortef) 50 mg IV DAILY [facility] Last Admin: 07/11/18 09:25 Dose: 50 mg Lactic Acid (Lac-Hydrin 12% Lotion (225 G)) 1 gm EXT BID [facility] Last Admin: 07/11/18 09:23 Dose: 1 applic Nystatin (Nystatin Oral Susp) 5 ml PO QID [facility] Last Admin: 07/11/18 09:51 Dose: Not Given Ondansetron HCl (Zofran Inj) 4 mg IVP Q6 PRN PRN Reason: Nausea/Vomiting Last Admin: 07/02/18 21:59 Dose: 4 mg Pantoprazole Sodium (Protonix Ec Tab) 40 mg PO DAILY [facility] Last Admin: 07/11/18 09:25 Dose: 40 mg Potassium Phos/Sodium Phos (Neutra-Phos) 1 pkt PO DAILY [facility] Last Admin: 07/11/18 09:25 Dose: 1 pkt Tamsulosin HCl (Flomax) 0.4 mg PO DAILY [facility] Last Admin: 07/11/18 09:25 Dose: 0.4 mg - Labs Labs: 07/10/18 07:04 07/10/18 07:04 PT 13.5 SECONDS (9.7-12.2) H 06/21/18 10:43 INR 1.2 06/21/18 10:43 APTT 29 SECONDS (21-34) 06/21/18 10:43
--- NOTE | 2018-07-11 13:36 | CP.PCM.PN ---
Subjective - Date & Time of Evaluation Date of Evaluation: 07/11/18 Time of Evaluation: 13:36 - Subjective Subjective: POD # 7 VS NOTED. AAO. NO COMPLAINTS TOLERATING DIET. GENERALIZED SKIN GRANULATING WELL ROS. HEENT : N. Resp : No cough, wheezing ,pleuritic CP ,or hemoptysis Cardio : No anginal CP, PND, orthopnea, palpitation GI : No abd.pain, n/v ,diarrhea or GI bleeding . 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 Musculoskel : No joint swelling , Derm rash all over the body Psych : Normal affect. Ext : No swelling ,calf pain PE. Pt. is in no distress. V.S As noted in the chart Head ,ear nose,throat and eyes : Normal Neck : Supple with normal carotids. Lungs: fair air entry Heart : S1 & S2 normal with S4. No murmur. Abd : Soft , POST OPERATIVE Neuro : Moves all ext. with no localized deficit. Ext : No edema with intact pulses.Non tender calves .LT.POST OPERTIVE GROIN SUTURE-LINE OK. Derm : Generalized erythema with exfoliation MUCH IMPROVED, SKIN DRYING OFF AND PEELING. LABS/RADIOLOGY: REVIEWED; WBC IMPROVING BLOOD CULTURE 06/26/18 -VE TO DATE MRSA -VE SCREEN Objective - Vital Signs/Intake and Output Vital Signs (last 24 hours): Temp Pulse Resp BP Pulse Ox 98.1 F 89 20 136/66 100 07/11/18 07:00 07/11/18 07:00 07/11/18 07:00 07/11/18 07:00 07/11/18 07:00 Intake and Output: 07/11/18 07/11/18 06:59 18:59 Intake Total 700 Balance 700 - Medications Medications: Current Medications Acetylcysteine (Acetylcysteine 20%) 4 ml INH RQ6 [facility] Last Admin: 07/11/18 07:05 Dose: 4 ml Al Hydrox/Mg Hydrox/Simethicone (Maalox 30 Ml) 30 ml PO Q4 PRN PRN Reason: Indigestion / Heartburn Last Admin: 06/30/18 18:00 Dose: 30 ml Albuterol/Ipratropium (Duoneb 3 Mg/0.5 Mg (3 Ml) Ud) 3 ml INH RQ4 [facility] Last Admin: 07/11/18 07:05 Dose: 3 ml Benzocaine/Menthol (Cepacol Sore Throat) 1 darryl MT Q4H PRN PRN Reason: Sore Throat Clotrimazole (Lotrimin 1%) 0 gm TOP BID [facility] Last Admin: 07/11/18 09:23 Dose: 1 appl Gabapentin (Neurontin) 300 mg PO BID [facility] Last Admin: 07/11/18 09:25 Dose: 300 mg Guaifenesin (Mucinex La) 600 mg PO Q12H [facility] Last Admin: 07/11/18 06:00 Dose: 600 mg Guaifenesin (Robitussin) 200 mg PO Q4H PRN PRN Reason: Cough and congestion Hydrocortisone Sodium Succinate (Solu-Cortef) 50 mg IV DAILY [facility] Last Admin: 07/11/18 09:25 Dose: 50 mg Lactic Acid (Lac-Hydrin 12% Lotion (225 G)) 1 gm EXT BID [facility] Last Admin: 07/11/18 09:23 Dose: 1 applic Nystatin (Nystatin Oral Susp) 5 ml PO QID [facility] Last Admin: 07/11/18 13:35 Dose: Not Given Ondansetron HCl (Zofran Inj) 4 mg IVP Q6 PRN PRN Reason: Nausea/Vomiting Last Admin: 07/02/18 21:59 Dose: 4 mg Pantoprazole Sodium (Protonix Ec Tab) 40 mg PO DAILY [facility] Last Admin: 07/11/18 09:25 Dose: 40 mg Potassium Phos/Sodium Phos (Neutra-Phos) 1 pkt PO DAILY [facility] Last Admin: 07/11/18 09:25 Dose: 1 pkt Tamsulosin HCl (Flomax) 0.4 mg PO DAILY [facility] Last Admin: 07/11/18 09:25 Dose: 0.4 mg - Labs Labs: 07/10/18 07:04 07/10/18 07:04 PT 13.5 SECONDS (9.7-12.2) H 06/21/18 10:43 INR 1.2 06/21/18 10:43 APTT 29 SECONDS (21-34) 06/21/18 10:43 Assessment and Plan (1) Inguinal hernia recurrent unilateral Status: Acute (2) SBO (small bowel obstruction) Status: Acute (3) Incarcerated left inguinal hernia Status: Acute (4) Pneumonia Status: Acute (5) Leukocytosis Status: Acute (6) Generalized rash Status: Acute (7) APL (acute promyelocytic leukemia) Status: Acute - Assessment and Plan (Free Text) Plan: PLAN: OFF IV ANTIBIOTICS X 24HRS. MYCELX TROUCHES TO SUCK ID X [id number] PT WANTS TO GO HOME AND DO PT OPD CASE DISCUSSED WITH PMD AND STAFF.
--- NOTE | 2018-07-11 16:47 | CP.PCM.PN ---
Subjective - Date & Time of Evaluation Date of Evaluation: 07/11/18 Time of Evaluation: 13:00 - Subjective Subjective: Podiatry Progress Note - Dr. Choi 73 y/o male seen for bilateral fissuring and scaling of plantar feet- stable. Patient is seen resting comfortably in bed, in NAD. AAox3. Says he has no pain to the feet or lower extremity at present. No other pedal complaints. No calf pain. Denies nausea, fever, shortness of breath, chest pains Objective - Vital Signs/Intake and Output Vital Signs (last 24 hours): Temp Pulse Resp BP Pulse Ox 98.1 F 89 20 136/66 100 07/11/18 07:00 07/11/18 07:00 07/11/18 07:00 07/11/18 07:00 07/11/18 07:00 Intake and Output: 07/11/18 07/11/18 06:59 18:59 Intake Total 700 350 Balance 700 350 - Medications Medications: Current Medications Acetylcysteine (Acetylcysteine 20%) 4 ml INH RQ6 [facility] Last Admin: 07/11/18 07:05 Dose: 4 ml Al Hydrox/Mg Hydrox/Simethicone (Maalox 30 Ml) 30 ml PO Q4 PRN PRN Reason: Indigestion / Heartburn Last Admin: 06/30/18 18:00 Dose: 30 ml Albuterol/Ipratropium (Duoneb 3 Mg/0.5 Mg (3 Ml) Ud) 3 ml INH RQ4 [facility] Last Admin: 07/11/18 07:05 Dose: 3 ml Benzocaine/Menthol (Cepacol Sore Throat) 1 darryl MT Q4H PRN PRN Reason: Sore Throat Clotrimazole (Lotrimin 1%) 0 gm TOP BID [facility] Last Admin: 07/11/18 09:23 Dose: 1 appl Clotrimazole (Mycelex Isaak) 10 mg MT TID [facility] Stop: 07/16/18 18:01 Gabapentin (Neurontin) 300 mg PO BID [facility] Last Admin: 07/11/18 09:25 Dose: 300 mg Guaifenesin (Mucinex La) 600 mg PO Q12H [facility] Last Admin: 07/11/18 06:00 Dose: 600 mg Guaifenesin (Robitussin) 200 mg PO Q4H PRN PRN Reason: Cough and congestion Hydrocortisone Sodium Succinate (Solu-Cortef) 50 mg IV DAILY [facility] Last Admin: 07/11/18 09:25 Dose: 50 mg Lactic Acid (Lac-Hydrin 12% Lotion (225 G)) 1 gm EXT BID [facility] Last Admin: 07/11/18 09:23 Dose: 1 applic Ondansetron HCl (Zofran Inj) 4 mg IVP Q6 PRN PRN Reason: Nausea/Vomiting Last Admin: 07/02/18 21:59 Dose: 4 mg Pantoprazole Sodium (Protonix Ec Tab) 40 mg PO DAILY [facility] Last Admin: 07/11/18 09:25 Dose: 40 mg Potassium Phos/Sodium Phos (Neutra-Phos) 1 pkt PO DAILY [facility] Last Admin: 07/11/18 09:25 Dose: 1 pkt Tamsulosin HCl (Flomax) 0.4 mg PO DAILY [facility] Last Admin: 07/11/18 09:25 Dose: 0.4 mg - Labs Labs: 07/10/18 07:04 07/10/18 07:04 PT 13.5 SECONDS (9.7-12.2) H 06/21/18 10:43 INR 1.2 06/21/18 10:43 APTT 29 SECONDS (21-34) 06/21/18 10:43 - Constitutional Appears: Well, Non-toxic, No Acute Distress - Extremities Exam Extremities Exam: absent: Calf Tenderness Additional comments: Lower extremity focused exam: VASC: DP/PT pulses palpable 2/4 B/L. CFT <3 seconds to all digits. TG warm to warm. Non-pitting edema noted to bilateral LE NEURO: Gross sensation intact B/L DERM: Severe xerosis + diffuse annular scaling present with fissuring throughout plantar aspect of foot B/L. No drainage, no purulence is noted. Mild diffuse erythema noted to bilateral LE. ORTHO: Mild-moderate tenderness on palpation to fissures and scaling of plantar foot B/L. ROM limited 2/2 edema - Neurological Exam Neurological Exam: Alert, Awake - Psychiatric Exam Psychiatric exam: Normal Affect, Normal Mood Assessment and Plan - Assessment and Plan (Free Text) Assessment: 73 y/o male with painful fissures and severe bilateral tinea pedis to plantar feet- stable Plan: Patient seen and evaluated with attending Dr. Choi at bedside Clotrimazole cream applied to B/L lower extremities -to be applied by nursing topically BID Feet are clinically improving - plan to continue current treatment Will continue to monitor patient Stable from podiatry standpoint Podiatry will sign off Please reconsult as needed Thank you for allowing us to participate in patient's care Upon discharge, to continue applying Clotrimazole cream daily F/U with Dr. Choi in clinic within 1 week of discharge
[2018-07-12] MEDS: Acetylcysteine 20% Inhal Soln (4ml) INH SCH ×2 (02:18→07:38)
[2018-07-12] MEDS: Albuterol-Ipratrop 3 mg / 0.5 (3 ml) UD INH SCH ×3 (04:51→11:17)
[2018-07-12] MEDS: guaiFENesin 600 mg ER Tab PO SCH (06:20)
[2018-07-12 07:37] VITALS: BP 120/67; PULSE 86; TEMP 97.4; O2SAT 100
[2018-07-12] MEDS: Ammonium Lactate 12% Lotion (225 g) EXT SCH (09:53)
[2018-07-12] MEDS: Pantoprazole 40 mg EC Tab PO SCH (09:53)
[2018-07-12] MEDS: Clotrimazole 1% Cream(30 gm) TOP SCH (09:53)
[2018-07-12] MEDS: Potassium & Sodium Phosphate PO SCH (09:54)
--- NOTE | 2018-07-12 11:40 | CP.PCM.DIS ---
Provider - Provider Date of Admission: 06/21/18 13:05 Attending physician: Brad Mirza MD Consults: 07/10/18 11:30 Discharge Planning [Case Management Referral] Routine Comment: Physician Instructions: Reason For Exam: Please arrange for home PT/homecare .Pt ready Reason for Referral: Discharge Planning 06/21/18 11:48 Critical Care Consult Stat Comment: Consulting Provider: Antoni Booth Consulting Physician: Antoni Booth Reason for Consult: hypoxia 06/21/18 13:12 Infectious Disease Consult Stat Comment: Consulting Provider: Benji Storey Consulting Physician: Benji Storey Reason for Consult: id consult 06/21/18 14:14 Wound Care [Nursing Referral for Wound Care] Routine Comment: both feet Physician Instructions: Reason For Exam: generalized skin flaking and sores on butt and 06/21/18 14:56 Podiatry Consult Routine Comment: Consulting Provider: Abhijeet Choi Consulting Physician: Abhijeet Choi Reason for Consult: bilateral feet skin tearing, blistering 06/22/18 10:24 Hematology Oncology Consult Routine Comment: Consulting Provider: James Hodge Consulting Physician: James Hodge Reason for Consult: acute prolymphocytic leukemia 06/22/18 15:27 Nephrology Consult Routine Comment: Consulting Provider: Charles Felton Consulting Physician: Charles Felton Reason for Consult: VIOLETTE, elevated phosphorus, uric acid, and potassium 06/23/18 12:05 Nursing Referral for Wound Care Routine Comment: Physician Instructions: Reason For Exam: peeling skin genralized 06/23/18 16:43 General Surgery Consult Routine Comment: Consulting Provider: Kayleigh Garvin Consulting Physician: Kayleigh Garvin Reason for Consult: High grade bowel obstruction, incarcerated hernia Time Spent in preparation of Discharge (in minutes): 35 Hospital Course - Lab Results Lab Results: Micro Results 07/01/18 07:27 Naris MRSA Culture - Final MRSA NOT DETECTED 06/26/18 14:45 Blood-Thru Central Line Blood Culture - Final NO GROWTH AFTER 5 DAYS 06/26/18 14:45 Blood-Thru Central Line Gram Stain - Final TEST NOT PERFORMED 06/26/18 14:15 Blood-Thru Central Line Blood Culture - Final NO GROWTH AFTER 5 DAYS 06/26/18 14:15 Blood-Thru Central Line Gram Stain - Final TEST NOT PERFORMED 06/21/18 10:50 Blood Blood Culture - Final NO GROWTH AFTER 5 DAYS 06/21/18 10:50 Blood Gram Stain - Final TEST NOT PERFORMED 06/21/18 10:35 Blood Blood Culture - Final NO GROWTH AFTER 5 DAYS 06/21/18 10:35 Blood Gram Stain - Final TEST NOT PERFORMED 06/21/18 11:45 Sputum Gram Stain - Final 06/21/18 11:45 Sputum Sputum Culture - Final Escherichia Coli 06/22/18 11:36 Urine,Catheterized Urine Culture - Final No Growth (<1,000 CFU/ML) 06/21/18 14:26 Naris MRSA Culture (Admit) - Final MRSA NOT DETECTED 06/21/18 16:42 Urine Urine Culture - Final No Growth (<1,000 CFU/ML) Most Recent Lab Values WBC 16.0 K/uL (4.8-10.8) H 07/10/18 07:04 RBC 3.01 Mil/uL (4.40-5.90) L 07/10/18 07:04 Hgb 8.4 g/dL (12.0-18.0) L 07/10/18 07:04 Hct 25.6 % (35.0-51.0) L 07/10/18 07:04 MCV 85.1 fL (80.0-94.0) 07/10/18 07:04 MCH 28.0 pg (27.0-31.0) 07/10/18 07:04 MCHC 33.0 g/dL (33.0-37.0) 07/10/18 07:04 RDW 17.5 % (11.5-14.5) H 07/10/18 07:04 Plt Count 272 K/uL (130-400) D 07/10/18 07:04 MPV 8.7 fL (7.2-11.7) 07/10/18 07:04 Neut % (Auto) 40.8 % (50.0-75.0) L 07/10/18 07:04 Lymph % (Auto) 46.9 % (20.0-40.0) H 07/10/18 07:04 Dauphin % (Auto) 10.2 % (0.0-10.0) H 07/10/18 07:04 Eos % (Auto) 1.2 % (0.0-4.0) 07/10/18 07:04 Baso % (Auto) 0.9 % (0.0-2.0) 07/10/18 07:04 Neut # (Auto) 6.5 K/uL (1.8-7.0) 07/10/18 07:04 Lymph # (Auto) 7.5 K/uL (1.0-4.3) H 07/10/18 07:04 Dauphin # (Auto) 1.6 K/uL (0.0-0.8) H 07/10/18 07:04 Eos # (Auto) 0.2 K/uL (0.0-0.7) 07/10/18 07:04 Baso # (Auto) 0.2 K/uL (0.0-0.2) 07/10/18 07:04 Neutrophils % (Manual) 28 % (50-75) L 06/23/18 06:10 Band Neutrophils % 36 % (0-2) H* 06/23/18 06:10 Lymphocytes % (Manual) 19 % (20-40) L 06/23/18 06:10 Reactive Lymphs % 1 % (0-0) H 06/23/18 06:10 Monocytes % (Manual) 13 % (0-10) H 06/23/18 06:10 Basophils % (Manual) 1 % (0-2) 06/21/18 10:43 Metamyelocytes % 1 % (0-0) H 06/23/18 06:10 Myelocytes % 2 % (0-0) H 06/23/18 06:10 Differential Comment 06/27/18 06:29 Toxic Granulation Present 06/23/18 06:10 Platelet Estimate Normal (NORMAL) 06/23/18 06:10 Large Platelets Present 06/23/18 06:10 Giant Platelets Present 06/22/18 06:02 Hypochromasia (manual) Slight 06/23/18 06:10 Poikilocytosis (manual Slight 06/23/18 06:10 Anisocytosis (manual) Moderate 06/22/18 06:02 Microcytosis (manual) Slight 06/22/18 06:02 Target Cells Slight 06/23/18 06:10 Tear Drop Cells Slight 06/22/18 06:02 Ovalocytes Slight 06/22/18 06:02 Luba Cells Moderate 06/23/18 06:10 Acanthocytes (Spur) Slight 06/23/18 06:10 PT 13.5 SECONDS (9.7-12.2) H 06/21/18 10:43 INR 1.2 06/21/18 10:43 APTT 29 SECONDS (21-34) 06/21/18 10:43 Puncture Site Rr 06/23/18 05:14 pCO2 41 mm/Hg (35-45) 06/23/18 05:14 pO2 127 mm/Hg (80-100) H 06/23/18 05:14 HCO3 26.4 mmol/L (21-28) 06/23/18 05:14 ABG pH 7.42 (7.35-7.45) 06/23/18 05:14 ABG Total CO2 27.9 mmol/L (22-28) 06/23/18 05:14 ABG O2 Saturation 99.9 % (95-98) H 06/23/18 05:14 ABG Base Excess 1.9 mmol/L (-2.0-3.0) 06/23/18 05:14 ABG Hemoglobin 8.9 g/dL (11.7-17.4) L 06/23/18 05:14 ABG Carboxyhemoglobin 1.9 % (0.5-1.5) H 06/23/18 05:14 POC ABG HHb (Measured) 0.1 % (0.0-5.0) 06/23/18 05:14 ABG Methemoglobin 0.9 % (0.0-3.0) 06/23/18 05:14 Osmany Test Pos 06/23/18 05:14 ABG Potassium 4.0 mmol/L (3.6-5.2) 06/21/18 12:20 A-a O2 Difference 321.0 mm/Hg 06/23/18 05:14 Respiratory Index 2.5 06/23/18 05:14 Hgb O2 Saturation 97.0 % (95.0-98.0) 06/23/18 05:14 Sodium 138.0 mmol/l (132-148) 06/21/18 12:20 Chloride 107.0 mmol/L (98-107) 06/21/18 12:20 Glucose 88 mg/dl (75-110) 06/21/18 12:20 Lactate 3.8 mmol/L (0.7-2.1) H 06/21/18 12:20 Liter Flow 25.0 06/23/18 05:14 Vent Mode Prvc 06/23/18 05:14 FiO2 70.0 % 06/23/18 05:14 Sodium 138 mmol/L (132-148) 07/10/18 07:04 Potassium 3.5 mmol/L (3.6-5.2) L 07/10/18 07:04 Chloride 106 mmol/L (98-107) 07/10/18 07:04 Carbon Dioxide 30 mmol/L (22-30) 07/10/18 07:04 Anion Gap 6 (10-20) L 07/10/18 07:04 BUN 5 mg/dL (9-20) L 07/10/18 07:04 Creatinine 0.4 mg/dL (0.8-1.5) L 07/10/18 07:04 Est GFR ( Amer) > 60 07/10/18 07:04 Est GFR (Non-Af Amer) > 60 07/10/18 07:04 POC Glucose (mg/dL) 100 mg/dL (65-110) 06/27/18 00:34 Random Glucose 78 mg/dL (75-110) D 07/10/18 07:04 Serum Osmolality 315 mosm/kg (272-300) H 06/22/18 11:36 Lactic Acid 1.8 mmol/L (0.7-2.1) 06/24/18 05:38 Uric Acid 3.3 mg/dL (3.5-8.5) L 06/27/18 06:29 Calcium 7.5 mg/dl (8.6-10.4) L 07/10/18 07:04 Phosphorus 2.1 mg/dL (2.5-4.5) L 07/05/18 07:17 Magnesium 1.6 mg/dL (1.6-2.3) 07/05/18 07:17 Total Bilirubin 0.6 mg/dL (0.2-1.3) 07/07/18 06:13 AST 19 U/L (17-59) 07/07/18 06:13 ALT 21 U/L (21-72) 07/07/18 06:13 Alkaline Phosphatase 115 U/L (38-126) 07/07/18 06:13 Total Creatine Kinase 127 U/L (55-170) 06/22/18 06:02 Troponin I 0.0580 ng/mL (0.00-0.120) 06/21/18 10:43 NT-Pro-B Natriuret Pep 1390 pg/mL (0-900) H 06/21/18 10:43 Total Protein 5.2 g/dL (6.3-8.3) L 07/07/18 06:13 Albumin 2.4 g/dL (3.5-5.0) L 07/07/18 06:13 Globulin 2.8 gm/dL (2.2-3.9) 07/07/18 06:13 Albumin/Globulin Ratio 0.9 (1.0-2.1) L 07/07/18 06:13 Amylase 54 U/L (30-110) 06/23/18 06:10 Lipase 155 U/L (23-300) 06/23/18 06:10 Procalcitonin 0.42 NG/ML (0.19-0.49) 06/28/18 09:35 TSH 3rd Generation 3.09 mIU/L (0.46-4.68) 06/21/18 10:43 Arterial Blood Potassium 4.0 mmol/L (3.6-5.2) 06/21/18 12:20 Urine Color Nuris (YELLOW) 06/22/18 11:36 Urine Clarity Hazy (Clear) 06/22/18 11:36 Urine pH 5.0 (5.0-8.0) 06/22/18 11:36 Ur Specific Stephens 1.021 (1.003-1.030) 06/22/18 11:36 Urine Protein 1+ mg/dL (NEGATIVE) H 06/22/18 11:36 Urine Glucose (UA) Normal mg/dL (Normal) 06/22/18 11:36 Urine Ketones Negative mg/dL (NEGATIVE) 06/22/18 11:36 Urine Blood Negative (NEGATIVE) 06/22/18 11:36 Urine Nitrate Negative (NEGATIVE) 06/22/18 11:36 Urine Bilirubin Negative (NEGATIVE) 06/22/18 11:36 Urine Urobilinogen Normal mg/dL (0.2-1.0) 06/22/18 11:36 Ur Leukocyte Esterase Neg Zehra/uL (Negative) 06/22/18 11:36 Urine WBC (Auto) 7 /hpf (0-5) H 06/22/18 11:36 Urine RBC (Auto) 3 /hpf (0-3) 06/22/18 11:36 Ur Squamous Epith Cells < 1 /hpf (0-5) 06/22/18 11:36 Amorphous Sediment Rare /ul (<OCC) H 06/21/18 16:42 Urine Bacteria Rare (<OCC) 06/22/18 11:36 Hyaline Casts 3-5 /lpf (0-2) H 06/21/18 16:42 Urine Eosinophils Negative (NEGATIVE) 06/22/18 13:42 Urine Osmolality 424 mosm/kg (300-1000) 06/22/18 11:36 Ur Random Creatinine 77.4 mg/dL 06/22/18 11:36 Ur Random Sodium < 5 mmol/L 06/22/18 11:36 Random Vancomycin 11.5 ug/mL 06/22/18 13:42 Ur L.pneumophila Ag Negative (NEGATIVE) 06/21/18 16:42 Mycoplasma pneumon IgM Negative (NEGATIVE) 06/21/18 16:10 Ur Strep pneumoniae Ag Not detected (Not Detected) 06/21/18 16:42 Blood Type O POSITIVE 07/04/18 08:33 Antibody Screen Negative 07/04/18 08:33 - Hospital Course Hospital Course: 73 years old male recently discharged from [facility] for cellulitis of lower extremities and eczema chronic to rehab center. Today in rehab patient was vomiting and there was possible aspiration as patient became short of breath with hypoxemia. Chest x-ray in the emergency room showed left hilar pneumonia. Patient was evaluated by ICU and will be admitted to ICU for further treatment. Patient's white cell count 19,000 Patient was admitted in ICU. Patient received Levophed IV fluids IV antibiotics and patient improved. Patient also had exfoliative dermatitis which improved on local clinic. Chest x-ray showed improvement of aspiration pneumonia. Patient was transferred to the floor and subsequently developed small bowel obstruction initially direct inguinal hernia was reduced manually but recurred. Patient then underwent inguinal hernia surgery and since then patient did not have any further small bowel obstruction patient currently stable and wants to go home and has declined to go to rehab center with discharge the patient on no antibiotics any other baseline medication. Discharge Exam - Head Exam Head Exam: ATRAUMATIC Discharge Plan - Follow Up Plan Condition: FAIR Disposition: HOME/ ROUTINE
== END 2018-07-12 14:10 | disposition home health service (06) | DRG 853 ==
LOC: C.ER 10:04 → C.9I 13:05 → C.3T 07-01 02:17
PROVIDERS: ADMIT Internal Medicine Cardiovascular Disease; ATTEND Internal Medicine Cardiovascular Disease
PROC: 05HM33Z Insertion of Infusion Device into Right Internal Jugular Vein, Percutaneous Approach (ICD-10-PCS; 2018-06-21)
PROC: 0VBG0ZZ Excision of Left Spermatic Cord, Open Approach (ICD-10-PCS; 2018-07-04)
PROC: 0YU60JZ Supplement Left Inguinal Region with Synthetic Substitute, Open Approach (ICD-10-PCS; principal; 2018-07-04 10:30)
PROC: 30233N1 Transfusion of Nonautologous Red Blood Cells into Peripheral Vein, Percutaneous Approach (ICD-10-PCS; 2018-07-05)
DX: A41.9 Sepsis, unspecified organism (principal); J69.0 Pneumonitis due to inhalation of food and vomit; K40.31 Unilateral inguinal hernia, with obstruction, without gangrene, recurrent; E87.3 Alkalosis; N17.9 Acute kidney failure, unspecified; C92.41 Acute promyelocytic leukemia, in remission; L03.115 Cellulitis of right lower limb; L03.116 Cellulitis of left lower limb; L51.1 Stevens-Johnson syndrome; D17.6 Benign lipomatous neoplasm of spermatic cord; D63.8 Anemia in other chronic diseases classified elsewhere; I10 Essential (primary) hypertension; L30.9 Dermatitis, unspecified; R09.02 Hypoxemia; E87.5 Hyperkalemia; L27.0 Generalized skin eruption due to drugs and medicaments taken internally; B35.3 Tinea pedis; L26 Exfoliative dermatitis; S90.821A Blister (nonthermal), right foot, initial encounter; S90.822A Blister (nonthermal), left foot, initial encounter; E78.00 Pure hypercholesterolemia, unspecified; Z87.891 Personal history of nicotine dependence; Z92.21 Personal history of antineoplastic chemotherapy; Z86.010 Personal history of colon polyps